=== PATIENT | female | born 1955 | race Caucasian/White ===

== ENCOUNTER 2023-01-22 14:59 | Outpatient (OUT) | payer MEDICARE, SELFPAY ==
[2023-01-22 15:47] LABS: Anion Gap 13.9; BUN Creatinine Ratio 10.3; Basophils Absolute Auto 0.1 10^3/uL (0.0-0.1); Basophils Percent Auto 0.6 % (0.2-2.0); Calcium 9.2 mg/dL (8.5-10.1); Carbon Dioxide 28.1 mmol/L (21.0-32.0); Chloride 97 mmol/L (98-107); Eosinophils Absolute Auto 0.2 10^3/uL (0.0-0.7); Eosinophils Percent Auto 1.7 % (0.9-7.0); Estimated GFR (African America >60 (>=60); Estimated GFR (Non-African Ame >60 (>=60); Glucose 384 mg/dL (74-106); Hematocrit 38.5 % (36.0-48.0); Hemoglobin 12.5 g/dL (12.0-16.0); Immature Granulocytes Abs Auto 0.09 10^3/uL (0.00-0.03); Immature Granulocytes Pct Auto 0.9 % (0.0-0.5); Lymphocytes Absolute Auto 2.5 10^3/uL (1.2-3.8); Lymphocytes Percent Auto 26.3 % (20.5-60.0); Mean Corpuscular HGB Conc 32.5 g/dL (29.9-35.2); Mean Corpuscular Hemoglobin 26.4 pg (26.7-34.0); Mean Corpuscular Volume 81.2 fL (81.0-99.0); Mean Platelet Volume 9.4 fL (9.5-13.5); Monocytes Absolute Auto 0.8 10^3/uL (0.3-0.8); Monocytes Percent Auto 8.6 % (1.7-12.0); Neutrophils Absolute Auto 5.9 10^3/uL (1.4-6.5); Neutrophils Percent Auto 61.9 % (43.0-75.0); Platelet Count 357 10^3/uL (150-450); Red Blood Count 4.74 10^6/uL (4.20-5.40); Sodium 135 mmol/L (136-145); White Blood Count 9.6 10^3/uL (4.0-11.0)
== END 2023-01-22 15:00 ==
PROVIDERS: PCP Family Medicine
DX: I25.118 Atherosclerotic heart disease of native coronary artery with other forms of angina pectoris (principal)
CPT/HCPCS: 36415; 80048; 85025

== ENCOUNTER 2023-02-22 08:22 | Outpatient (OUT) | payer MEDICARE, SELFPAY ==
--- NOTE | 2023-02-22 08:33 | XR_ITS ---
[address] [address] Patient Name: RICCARDO MACDONALD MRN: [id number] date: 1955 Sex: F Assigned Patient Location: [facility] Current Patient Location: [facility] Accession/Order Number: [id number] Exam Date: 02/22/2023 08:45 Report Date: 02/22/2023 09:30 At the request of: GUY CONWAY Procedure: XR DEXA axial skeleton EXAMINATION: XR DEXA axial skeleton HISTORY: Primary Ovarian Failure Z00.00 COMPARISON: DEXA bone densitometry 01/13/2008 TECHNIQUE: Dual-energy X-ray absorptiometry (DXA) was performed. FINDINGS: SPINE ANALYSIS: Average bone mineral density is 0.943 g/cm2. T-score (standard deviation relative to young adult mean): -2.0 . -8.7% change since prior study. HIP ANALYSIS: Lowest bone mineral density is within the right femoral neck, 0.748 g/cm2. T-score (standard deviation relative to young adult mean): -2.1 . IMPRESSION: [employer] Classification: Osteopenia - Moderate Fracture Risk Electronically authenticated by: CATRINA SNYDER Date: 02/22/2023 09:30
--- NOTE | 2023-02-22 08:33 | MM_ITS ---
Patient: RICCARDO MACDONALD Exam Date: 02/22/2023 : 1955 Gender:F Ordering : DR. GUY CONWAY . Admission #: [id number] Family : Order #: [id number] CLICK HERE TO VIEW EXAM RADIOLOGY REPORT PROCEDURE: MM TOMOSYNTHESIS SCREENING BI COMPARISON: MG MAMM SCREEN 3D JOSÉ ANTONIO CAD, 02/06/2022. MG MAMM SCREEN JOSÉ ANTONIO W CAD, 10/25/2020. MG MAMM SCREEN JOSÉ ANTONIO W CAD, 06/06/2019. MG MAMM JOSÉ ANTONIO SCRN W CAD DIG, 03/14/2015. INDICATIONS: Screening Calculator Name NCI Breast Cancer Risk Assessment Tool 5 Year Breast Cancer Risk 1.20% Lifetime Breast Cancer Risk 4.00% Personal Breast Cancer No Personal Ovarian Cancer No Treatments None Family Cancers Aunt-maternal with breast cancer at age 50; Father with lung cancer at age 66; Grandfather-maternal with lung cancer at age 58. LOCATION: [facility] BREAST COMPOSITION: Scattered areas fibroglandular density. FINDINGS: DIAGNOSTIC CATEGORY 2--BENIGN FINDING: RIGHT BREAST: No significant suspicious finding. Scattered benign-appearing calcifications are present. No significant change has occurred. LEFT BREAST: No significant suspicious finding. Scattered benign-appearing calcifications are present. Scattered benign-appearing lymph nodes are present. No significant change has occurred. RECOMMENDATIONS: ROUTINE MAMMOGRAM AND CLINICAL EVALUATION IN 12 MONTHS. PLEASE NOTE: A NORMAL MAMMOGRAM DOES NOT EXCLUDE THE POSSIBILITY OF BREAST CANCER. A CLINICALLY SUSPICIOUS PALPABLE LUMP SHOULD BE BIOPSIED. Dictated by: iMtchell Velázquez M.D. on 02/23/2023 at 09:08 Approved by: Mitchell Velázquez M.D. on 02/23/2023 at 09:15
== END 2023-02-22 08:23 | disposition home or self-care (01) ==
LOC: MAMMO 08:22
PROVIDERS: PCP Family Medicine; Visit Provider Family Medicine
DX: Z12.31 Encounter for screening mammogram for malignant neoplasm of breast (principal); E28.39 Other primary ovarian failure; Z00.00 Encounter for general adult medical examination without abnormal findings; M85.80 Other specified disorders of bone density and structure, unspecified site
CPT/HCPCS: 77063; 77067; 77080

== ENCOUNTER 2023-03-30 16:18 | Outpatient (OUT) | payer MEDICARE, SELFPAY ==
[2023-03-30 17:01] LABS: Basophils Absolute Auto 0.1 10^3/uL (0.0-0.1); Basophils Percent Auto 0.8 % (0.2-2.0); Eosinophils Absolute Auto 0.3 10^3/uL (0.0-0.7); Eosinophils Percent Auto 2.5 % (0.9-7.0); Hematocrit 37.2 % (36.0-48.0); Hemoglobin 12.1 g/dL (12.0-16.0); Immature Granulocytes Abs Auto 0.03 10^3/uL (0.00-0.03); Immature Granulocytes Pct Auto 0.3 % (0.0-0.5); Lymphocytes Absolute Auto 2.6 10^3/uL (1.2-3.8); Lymphocytes Percent Auto 25.5 % (20.5-60.0); Mean Corpuscular HGB Conc 32.5 g/dL (29.9-35.2); Mean Corpuscular Hemoglobin 26.1 pg (26.7-34.0); Mean Corpuscular Volume 80.3 fL (81.0-99.0); Mean Platelet Volume 9.1 fL (9.5-13.5); Monocytes Absolute Auto 0.8 10^3/uL (0.3-0.8); Monocytes Percent Auto 7.8 % (1.7-12.0); Neutrophils Absolute Auto 6.5 10^3/uL (1.4-6.5); Neutrophils Percent Auto 63.1 % (43.0-75.0); Platelet Count 413 10^3/uL (150-450); Red Blood Count 4.63 10^6/uL (4.20-5.40); White Blood Count 10.2 10^3/uL (4.0-11.0)
[2023-03-30 17:25] LABS: Estimated Average Glucose 243 mg/dL; Glycohemoglobin A1C 10.1 % (4.5-6.2)
[2023-03-30 17:26] LABS: Alanine Aminotransferase 20 U/L (14-59); Albumin Globulin Ratio 1.2; Albumin Level 3.9 g/dL (3.4-5.0); Alkaline Phosphatase 107 U/L (46-116); Anion Gap 16.8; Aspartate Amino Transferase 10 U/L (15-37); BUN Creatinine Ratio 9.7; Bilirubin Total 0.5 mg/dL (0.2-1.0); Calcium 9.2 mg/dL (8.5-10.1); Chloride 102 mmol/L (98-107); Estimated GFR (African America >60 (>=60); Estimated GFR (Non-African Ame >60 (>=60); Globulin 3.2 g/dL; Glucose 163 mg/dL (74-106); Potassium 3.8 mmol/L (3.5-5.1); Sodium 141 mmol/L (136-145); Total Protein 7.1 g/dL (6.4-8.2)
== END 2023-03-30 16:19 | disposition home or self-care (01) ==
PROVIDERS: PCP Family Medicine; Visit Provider Family Medicine
DX: I27.20 Pulmonary hypertension, unspecified (principal); J44.9 Chronic obstructive pulmonary disease, unspecified; E55.9 Vitamin D deficiency, unspecified; E11.9 Type 2 diabetes mellitus without complications; D64.9 Anemia, unspecified
CPT/HCPCS: 36415; 80053; 82306; 83036; 85025

== ENCOUNTER 2023-04-20 15:13 | Outpatient (OUT) | payer MEDICARE, SELFPAY ==
--- NOTE | 2023-04-20 15:19 | XR_ITS ---
The [address] [address] Patient Name: RICCARDO MACDONALD MRN: [id number] date: 1955 Sex: F Assigned Patient Location: [facility] Current Patient Location: [facility] Accession/Order Number: [id number] Exam Date: 04/20/2023 15:22 Report Date: 04/20/2023 15:50 At the request of: GUY CONWAY Procedure: XR shoulder RT min 2V PROCEDURE: XR shoulder RT min 2V DATE: 04/20/2023 2:22 PM CDT COMPARISONS: None CLINICAL INDICATION: Right shoulder pain FINDINGS: There is no evidence of fractures or other acute osseous abnormalities. There is some bone demineralization. It appears there is some mild acromioclavicular degenerative change. There also appears to be mild glenohumeral degenerative change although these images do not include a Grashey view. This limits evaluation of the glenohumeral joint somewhat. The visualized soft tissue show no abnormalities in these projections. XR/XR shoulder RT min 2V IMPRESSION: Right shoulder radiographs show no evidence of acute abnormalities. Electronically authenticated by: CYNTHIA DE LA TORRE Date: 04/20/2023 15:50
== END 2023-04-20 15:14 | disposition home or self-care (01) ==
LOC: RAD 15:14
PROVIDERS: PCP Family Medicine; Visit Provider Family Medicine
DX: M25.511 Pain in right shoulder (principal)
CPT/HCPCS: 73030

== ENCOUNTER 2023-10-14 06:35 | Outpatient (OUT) | payer MEDICARE, SELFPAY ==
--- NOTE | 2023-10-14 06:46 | CT_ITS ---
[address] [address] Patient Name: RICCARDO MACDONALD MRN: [id number] date: 1955 Sex: F Assigned Patient Location: LAB Current Patient Location: LAB Accession/Order Number: [id number] Exam Date: 10/14/2023 07:55 Report Date: 10/14/2023 08:59 At the request of: JENY CAT Procedure: CT abdomen pelvis w con EXAMINATION: CT abdomen pelvis w con HISTORY: Right Lower Quadrant Pain R10.31, Ventral Hernia K43.6 COMPARISON: No relevant comparison available. TECHNIQUE: CT images were created with IV contrast. Axial, Coronal, and Sagittal images. Dose reduction techniques were achieved by using automated exposure control and/or adjustment of mA and/or kV according to patient size and/or use of iterative reconstruction technique. FINDINGS: LUNG BASES: No visible pulmonary or pleural disease. Heavy coronary atherosclerosis LIVER: No enlargement, atrophy, abnormal density, or significant focal lesion. BILIARY: The gallbladder is not visualized PANCREAS: Moderate diffuse pancreatic atrophy SPLEEN: No enlargement or focal lesion. ADRENALS: No mass or enlargement. KIDNEYS: No mass, obstruction, or calcification. BOWEL/MESENTERY: No visible mass, obstruction, or bowel wall thickening. AORTA/VASCULAR: No aortic aneurysm. Moderate diffuse atherosclerosis RETROPERITONEUM: No mass or adenopathy. LYMPH NODES: No adenopathy. URINARY BLADDER: No visible focal wall thickening, lesion, or calculus. PELVIC ORGANS: Hysterectomy ABDOMINAL WALL: Laxity of the ventral abdominal fascia with multiple linear opacities have the appearance of failed and displaced calcified mesh BONES: No bony lesion or fracture. OTHER: Negative. CT/CT abdomen pelvis w con IMPRESSION: Laxity of the ventral fascia with calcifications resembling failed displaced calcified mesh No acute intraperitoneal abnormality Electronically authenticated by: CHRISTELLE BECKER Date: 10/14/2023 08:59
[2023-10-14 06:57] LABS: Estimated GFR (African America >60 (>=60); Estimated GFR (Non-African Ame >60 (>=60)
== END 2023-10-14 06:36 | disposition home or self-care (01) ==
LOC: LAB 06:35
PROVIDERS: PCP Family Medicine; Visit Provider Surgery
DX: Z01.812 Encounter for preprocedural laboratory examination (principal); R10.31 Right lower quadrant pain; K43.6 Other and unspecified ventral hernia with obstruction, without gangrene; Z68.31 Body mass index [BMI] 31.0-31.9, adult
CPT/HCPCS: 36415; 74177; 82565; Q9967

== ENCOUNTER 2023-11-04 07:32 | Outpatient (RCR) | payer MEDICARE, SELFPAY ==
[2023-11-04] MEDS: 0.9 % SODIUM CHLORIDE 250 ML 10 ML IV (13:30)
[2023-11-04 13:47] VITALS: BP 134/66; PULSE 71; RESP 18; TEMP 37; O2SAT 98
--- NOTE | 2023-11-04 13:50 | PC.NURSE ---
1315 Arrival ambulatory to chair 4, alert oriented. Offered drink. 1330 @24 iv initiated right wrist on rd attempt, tolerated well. 1340 iv normal saline 125 ml prior to venofer.
[2023-11-04] MEDS: IRON SUCROSE COMPLEX 300 MG in 0.9 % SODIUM CHLORIDE 250 ML 176.667000000000002 MG IV (13:58)
--- NOTE | 2023-11-04 15:10 | PC.NURSE ---
1500 iron infusionand saline total of 250 cc ns 125 pre iron 125 cc post iron infusion, tolerated well. IV site dc'd catheter intact. released ambulatory
== END 2023-11-14 23:59 | disposition home or self-care (01) ==
LOC: INF 07:32
PROVIDERS: PCP Family Medicine; Visit Provider Family Medicine
DX: D64.9 Anemia, unspecified (principal)
CPT/HCPCS: 96365; 96366; J1756

== ENCOUNTER 2023-11-30 11:51 | Outpatient (OUT) | payer MEDICARE, SELFPAY ==
--- NOTE | 2023-11-30 11:59 | XR_ITS ---
The [address] [address] Patient Name: RICCARDO MACDONALD MRN: [id number] date: 1955 Sex: F Assigned Patient Location: [facility] Current Patient Location: [facility] Accession/Order Number: [id number] Exam Date: 11/30/2023 12:02 Report Date: 11/30/2023 12:24 At the request of: GUY CONWAY Procedure: XR chest 2V PROCEDURE: XR chest 2V DATE: 11/30/2023 11:02 AM CDT COMPARISONS: None. CLINICAL INDICATION: 68 years Female cough FINDINGS: The cardiomediastinal silhouette and pulmonary vasculature are within normal limits. The lungs are clear. There is no evidence of pleural effusion or pneumothorax. XR/XR chest 2V IMPRESSION: Chest radiograph is within normal limits. Electronically authenticated by: CYNTHIA DE LA TORRE Date: 11/30/2023 12:24
== END 2023-11-30 11:52 | disposition home or self-care (01) ==
LOC: RAD 11:52
PROVIDERS: PCP Family Medicine; Visit Provider Family Medicine
DX: R05.9 Cough, unspecified (principal)
CPT/HCPCS: 71046

== ENCOUNTER 2024-05-16 12:42 | Outpatient (OUT) | payer MEDICARE, SELFPAY ==
[2024-05-16 13:42] LABS: Anion Gap 12.1; Calcium 9.4 mg/dL (8.5-10.1); Carbon Dioxide 25.8 mmol/L (21.0-32.0); Chloride 101 mmol/L (98-107); Estimated GFR (African America >60 (>=60); Estimated GFR (Non-African Ame >60 (>=60); Glucose 120 mg/dL (74-106); Potassium 3.9 mmol/L (3.5-5.1); Sodium 135 mmol/L (136-145)
== END 2024-05-16 12:43 | disposition home or self-care (01) ==
LOC: LAB 12:46
PROVIDERS: PCP Family Medicine; Visit Provider Internal Medicine Interventional Cardiology
DX: I50.22 Chronic systolic (congestive) heart failure (principal)
CPT/HCPCS: 36415; 80048

== ENCOUNTER 2024-12-30 23:12 | Emergency (ER) | payer OTHER, SELFPAY ==
--- OUTSIDE RECORDS SUMMARY | 2024-12-30 23:24 | XMS_ITS | CCD ---
Author Organization [facility] Care Team Providers Care [place] Interpretive Ranger Name Role Phone UNKNOWN, PROVIDER Admitting Unavailable UNKNOWN, PROVIDER Attending Unavailable MONTES, KARL Referring Unavailable MONTES, KARL Primary Care Unavailable Unavailable Primary Care Provider Unavailabl e PROVIDER, UNKNOWN Admitting Unavailable OWEN, SUZIE Referring Unavailable PROVIDER, UNKNOWN Attending Unavailable PROVIDER, UNKNOWN Attending Unavailable PROVIDER, UNKNOWN Admitting Unavailable OWEN, SUZIE Referring Unavailable LADHA, JACQUELINE Attending Unavailable LADHA, JACQUELINE Admitting Unavailable OWEN, SUZIE Referring Unavailable PROVIDER, UNKNOWN Attending Unavailable LADHA, JACQUELINE Admitting Unavailable OWEN, SUZIE Referring Unavailable ELAINE ., CAROLINA Attending Unavailable MONTES ., DR KARL Kam Primary Care Unavailable OWEN, DR SUZIE King Consulting Unavailable ELAINE ., CAROLINA Admitting Unavailable ELAINE ., CAROLINA Consulting Unavailable ASAD, HOSSAM Consulting Unavailable MONTES ., DR KARL Kam Primary Care Unavailable MONTES ., DR KARL Kam Admitting Unavailable MONTES ., DR KARL Kam Attending Unavailable MONTES ., DR KARL Kam Consulting Unavailable ZIEBER, DR CATRINA King Consulting Unavailable MATTHIAS MUÑOZ Consulting Unavailable MONTES ., DR KARL Kam Primary Care Unavailable MONTES ., DR KARL Kam Admitting Unavailable MONTES ., DR KARL Kam Attending Unavailable MONTES ., DR KARL Kam Consulting Unavailable AC GOMES Consulting Unavailable MONTES ., DR KARL Kam Primary Care Unavailable MONTES ., DR KARL Kam Admitting Unavailable MONTES ., DR KARL Kam Attending Unavailable MONTES ., DR KARL Kam Consulting Unavailable MONTES ., DR KARL Kam Consulting Unavailable MONTES ., DR KARL Kam Attending Unavailable MONTES ., DR KARL Kam Primary Care Unavailable MONTES ., DR KARL Kam Admitting Unavailable TRIPP, JOSE Consulting Unavailable MONTES ., DR KARL Kam Attending Unavailable MONTES ., DR KARL Kam Primary Care Unavailable MONTES ., DR KARL Kam Admitting Unavailable MONTES ., DR KARL Kam Consulting Unavailable MONTES ., DR KARL Kam Primary Care Unavailable MONTES ., DR KARL Kam Admitting Unavailable MONTES ., DR KARL Kam Attending Unavailable MONTES ., DR KARL Kam Consulting Unavailable ROSS, ISSAC MARIAMA Attending Unavailable ROSS, ISSAC MARIAMA Consulting Unavailable ROSS, ISSAC MARIAMA Primary Care Unavailable ROSS, ISSAC MARIAMA Admitting Unavailable MONTES ., DR KARL Kam Primary Care Unavailable MONTES ., DR KARL Kam Admitting Unavailable MONTES ., DR KARL Kam Attending Unavailable MONTES ., DR KARL Kam Consulting Unavailable MISC, DR BOWIE Attending Unavailable MISC, DR BOWIE Consulting Unavailable MONTES ., DR KARL Kam Primary Care Unavailable MISC, DR BOWIE Admitting Unavailable MOUKARBKAYKAY, AC Attending Unavailable MOUKARBKAYKAY, AC Consulting Unavailable MONTES ., DR KARL Kam Primary Care Unavailable AC GOMES Admitting Unavailable MONTES ., DR KARL Kam Primary Care Unavailable MONTES ., DR KARL Kam Admitting Unavailable MONTES ., DR KARL Kam Attending Unavailable MONTES ., DR KARL Kam Consulting Unavailable AC GOMES Consulting Unavailable MONTES ., DR KARL Kam Attending Unavailable MONTES ., DR KARL Kam Primary Care Unavailable MONTES ., DR KARL Kam Admitting Unavailable MONTES ., DR KARL Kam Consulting Unavailable MANSURA, DR CHRISTELLE Blanchard Consulting Unavailable MONTES ., DR KARL Kam Attending Unavailable MONTES ., DR KARL Kam Consulting Unavailable MONTES ., DR KARL Kam Primary Care Unavailable MONTES ., DR KARL Kam Admitting Unavailable ZIEBER, DR CATRINA King Consulting Unavailable MONTES ., DR KARL Kam Consulting Unavailable MONTES ., DR KARL Kam Primary Care Unavailable MONTES ., DR KARL Kam Admitting Unavailable MONTES ., DR KARL Kam Attending Unavailable MONTES ., DR KARL Kam Attending Unavailable MONTES ., DR KARL Kam Primary Care Unavailable MONTES ., DR KARL Kam Admitting Unavailable MONTES ., DR KARL Kam Consulting Unavailable ELAINE ., CAROLINA Admitting Unavailable ELAINE ., CAROLINA Attending Unavailable MONTES ., DR KARL Kam Primary Care Unavailable ELDON COOLEY Consulting Unavailable ELAINE ., CAROLINA Consulting Unavailable MONTES ., DR KARL Kam Primary Care Unavailable MONTES ., DR KARL Kam Admitting Unavailable MONTES ., DR KARL Kam Attending Unavailable MONTES ., DR KARL Kam Consulting Unavailable MONTES ., DR KARL Kam Attending Unavailable MONTES ., DR KARL Kam Primary Care Unavailable MONTES ., DR KARL Kam Admitting Unavailable MONTES ., DR KARL Kam Consulting Unavailable SHAMEKA DYKES Consulting Unavailable DUMONT, AYLEEN Consulting Unavailable SISTER, MATTHIAS Consulting Unavailable SHARP, WEI Consulting Unavailable BASIL, ROBERTH Consulting Unavailable MONTES ., DR KARL Kam Consulting Unavailable MONTES ., DR KARL Kam Attending Unavailable MONTES ., DR KARL Kam Primary Care Unavailable MONTES ., DR KARL Kam Admitting Unavailable MONTES ., DR KARL Kam Primary Care Unavailable MONTES ., DR KARL Kam Admitting Unavailable MONTES ., DR KARL Kam Attending Unavailable MONTES ., DR KARL Kam Consulting Unavailable ZIEBER, DR CATRINA King Consulting Unavailable Issac Conway. Primary Care Physician Karl Montes MD Primary Care Provider [phone] Marianne Lozano Attending UnavailMD Issac Long Referring Unavailable Marianne Lozano Admitting UnavailMarianne Rivera Attending Unavailabl e Issac Conway EDonald Attending Unavailable Man, Issac E. Admitting Unavailable Man, Issac E. Admitting Unavailable Issac Conway E. Attending Unavailable Issac Conway E. Attending Unavailable Issac Conway E. Attending Unavailable Issac Conway E. Attending Unavailable Issac Conway E. Attending Unavailable Issac Conway E. Attending Unavailable Issac Conway E. Attending Unavailable Man Issac E. Admitting Unavailable Issac Conway E. Attending Unavailable NONE, XXXX Referring Unavailable Martinez, Basem G. Attending Unavailable NONE, XXXX Referring Unavailable Petar Gonzalez. Attending Unavaila ble NONE, XXXX Referring Unavailable Petar Gonzalez. Attending Unavaila ble Issac Conway E. Attending Unavailable Man, Issac E. Referring Unavailable Ross, Issac E. Admitting Unavailable Martinez, Basem G. Admitting Unavailable Martinez, Basem G. Attending Unavailable Martinez, Basem G. Referring Unavailable Ross, Issac E. Attending Unavailable Man, Issac E. Admitting Unavailable NILL, Juan Pablo R Attending Unavailable Man, Issac E. Referring Unavailable Man, Issac E. Attending Unavailable Man, Issac E. Attending Unavailable Man, Issac E. Attending Unavailable Man, Issac E. Attending Unavailable Man, Issac E. Attending Unavailable Man, Issac E. Admitting Unavailable Man, Issac E. Attending Unavailable Man, Issac E. Admitting Unavailable Issac Conway MD Primary Care Provider [place]-Marianne Savage Attending Unavailabl e Al-Marramagui, Sandid Yaser Admitting Unavailabl Ac Goodwin MD Unavailable Michelle GUYLinda Unavailable MD Issac Conway Referring Unavailable MD Marianne Lozano Attending Unavail able MD Marianne Lozano Attending Unavail able JUJU OROURKE Attending Unavailable KARL MONTES Primary Care Unavailable DAVID HODGSON Admitting Unavailable MAN ISSAC E Primary Care Unavailable MARÍA GUZMAN Referring Unavailable MAN, ISSAC E Primary Care Unavailable MARÍA GUZMAN Referring Unavailable MAN, ISSAC E Primary Care Unavailable KARL MONTES Primary Care Unavailable JUJU OROURKE Referring Unavailable JUJU OROURKE Attending Unavailable MARÍA GUZMAN Attending Unavailable MAN ISSAC E Primary Care Unavailable MARÍA GUZMAN Referring Unavailable MAN, ISSAC E Primary Care Unavailable MARÍA GUZMAN Referring Unavailable MAN, ISSAC E Primary Care Unavailable MD Issac Conway Attending Unavailable MD Issac Conway Attending Unavailable Al-Marmckenzie, Marianne Yaser Admitting Unavailabl e Al-Marramagui, Sandid Angelika Attending Unavailabl e Al-Marramagui, Sandid Yaser Admitting Unavailabl e [place]-Marianne Savage Attending UnavailMD Issac Long Attending Unavailable MD Issac Conway Admitting Unavailable Al-Marramagui, Sandid Yaser Referring Unavailabl e Al-Marramagui, Marianne Yalilian Attending Unavailabl e [place]i Savaged Yalilian Attending UnavailMD Issac Long Attending Unavailable MD Issac Conway Attending Unavailable AC GOMES Attending Unavailable AC GOMES Attending Unavailable Issac Conway Attending Unavailable Al-MarMarianne rincon Attending Unavailabl e Al-MarraSandi kilgored Yaser Attending Unavailabl e Al-Marramagui, Marianne Yalilian Attending Unavailabl e Al-Marramagui, Mhd Yaser Admitting Unavailabl e Al-Marramagui, Sandid Yalilian Attending Unavailabl e Issac Conway. Admitting Unavailable Isasc Conway. Attending Unavailable Issac Conway. Attending Unavailable Issac Conway. Attending Unavailable Al-Marrawi, Mhd Yaser Admitting Unavailabl e Al-Marrawi, Mhd Yaser Attending Unavailabl e Al-Marrawi, Mhd Yaser Admitting Unavailabl e Al-Marrawi, Mhd Yaser Attending Unavailabl e Kvng, Mohamad A. Attending Unavailable MD Segundo Guillen Attending Unavailable MD Segundo Guillen Admitting Unavailable Al-Marrawi, Mhd Yaser Attending Unavailabl e NONE, XXXX Referring Unavailable Martinez, Basem G. Admitting Unavailable Martinez, Basem G. Attending Unavailable Martinez, Basem G. Admitting Unavailable Martinez, Basem G. Attending Unavailable Martinez, Basem G. Referring Unavailable Al-Marrawi, Mhd Yaser Admitting Unavailabl e Al-Marrawi, Mhd Yaser Attending Unavailabl e Al-Marrawi, Mhd Yaser Attending Unavailabl e Al-Marrawi, Mhd Yaser Admitting Unavailabl e Al-Marrawi, Mhd Yaser Attending Unavailabl e Al-Marrawi, Mhd Yaser Attending Unavailabl e Issac Conway. Attending Unavailable Issac Conway. Attending Unavailable Issac Conway. Admitting Unavailable Al-Marrawi, Mhd Yaser Attending Unavailabl e Al-Marrawi, Mhd Yaser Referring Unavailabl e Segundo Guillen Admitting Unavailable Segundo Guillen Attending Unavailable Mouchli, Mohamad A. Attending Unavailable Al-Marrawi, Mhd Yaser Attending Unavailabl e Mouchli, Mohamad A. Admitting Unavailable Mouchli, Mohamad A. Attending Unavailable Mouchli, Mohamad A. Referring Unavailable Allergies Allergy Classification Reported Allergen(s) Allergy Type Date of Onset Reaction(s) Facility (14 sources) Amoxicillin; Translations: [AMOXICILLIN] Drug Allergy 10-08-19 12 Itching [facility] Repository (13 sources) Atenolol; Translations: [ATENOLOL] Drug Allergy 10-08-19 12 Anaphylaxis [facility] Repository (10 sources) Cephalexin; Translations: [Keflex] Drug Allergy 10-08-19 12 [facility] Repository (10 sources) Ciprofloxacin; Translations: [Cipro] Drug Allergy 10-08-19 12 [facility] Repository (10 sources) Clarithromycin; Translations: [Biaxin] Drug Allergy 10-08-19 12 [facility] Repository (8 sources) Contrast media; Translations: [RED DYE] Drug allergy (disorder) 10-08-19 12 Unknown [facility] Repository (14 sources) Doxycycline; Translations: [DOXYCYCLINE] Drug Allergy 12-22-19 16 Nausea [facility] Repository (8 sources) quiNIDine; Translations: [quinidine] Drug Allergy 10-20-19 12 Itching [facility] Repository (4 sources) Sulfonamides (Antibiotic); Translations: [SULFA (SULFONAMIDE ANTIBIOTICS)] Drug allergy (disorder) 10-08-19 12 [facility] Repository (3 sources) Acetaminophen / HYDROcodone; Translations: [ACETAMINOPHEN-HYD ROCODONE] Drug Allergy 07-04-20 22 [facility] (20 sources) Amoxicillin; Translations: [amoxicillin] Drug Allergy 08-03-20 14 Unknown (qualifier value), Itching, Other: See Comments [facility] (2 sources) Atenolol Propensity to adverse reactions to drug 07-04-20 22 Anaphylactic Shock [facility] (20 sources) Cephalexin; Translations: [CEPHALEXIN] Drug Allergy 08-03-20 14 Unknown (qualifier value), Itching, Rash [facility] (20 sources) Ciprofloxacin; Translations: [CIPROFLOXACIN] Drug Allergy 08-03-20 14 Unknown (qualifier value), Itching, Rash [facility] (6 sources) Clarithromycin; Translations: [CLARITHROMYCIN] Propensity to adverse reactions to drug 08-03-20 14 Itching [facility] (20 sources) Doxycycline; Translations: [doxycycline] Drug Allergy 07-04-20 22 Unknown (qualifier value), Unknown [facility] (10 sources) Pseudoephedrine; Translations: [PSEUDOEPHEDRINE] Drug Allergy 07-04-20 22 Intolerance [facility] (8 sources) Sulfonamides (Antibiotic); Translations: [SULFA ANTIBIOTICS] Propensity to adverse reactions to drug 08-03-20 14 Itching, Unknown [facility] (1 source) Acetaminophen / HYDROcodone Drug Allergy 11-22-19 14 [facility] Repository (1 source) Atenolol Drug Allergy 07-27-20 13 [facility] (1 source) Pseudoephedrine Drug Allergy 11-22-19 14 [facility] (20 sources) Atenolol; Translations: [atenolol] Drug Allergy 08-03-20 14 Unknown (qualifier value), Anaphylaxis, Unknown [facility] (20 sources) Clarithromycin; Translations: [clarithromycin] Drug Allergy 08-03-20 14 Unknown (qualifier value), Itching, Rash [facility] (20 sources) Sulfonamides (Antibiotic); Translations: [sulfa drugs] Drug allergy Unknown (qualifier value) [facility] Medications Current Medications Medication Drug Class(es) Dates Sig (Normalized) Sig (Original) acetaminophen 325 mg oral tablet (3 sources) Start: 07-06-2022 End: 07-13-2022 take 2 tablets by mouth every six hours as needed acetaminophen (TYLENOL) 325 mg tablet Take 2 Tablets by mouth every 6 hours as needed for up to 7 days. 28 Each 0 07/06/2022 07/13/2022 Active Start: 07-04-2022 End: 07-06-2022 take 640 mg nasogastric route every six hours acetaminophen (TYLENOL) 650 MG/20.3ML oral solution SF albuterol 0.833 mg/ml / ipratropium bromide 0.167 mg/ml inhalation solution (20 sources) Anticholinergic, beta2-Adrenergic Agonist Start: 10-06-2024 Ipratropium-Albuterol 0.5 mg-3 mg(2.5 mg base)/3 mL solution for nebulization Active ML INHALATION October 06, 2024 12:00am Start: 06-12-2024 take 3 mL by inhalat ion four times daily albuterol-ipratropium Inh Ana Cristina 3 mL UD 3 mL, NEB, QID, 1,080 mL, Refill(s) 4, [facility], 151, cm, 05/30/24 13:14:00 EDT, Height/Length Dosing, 69.5, kg, 05/30/24 13:14:00 EDT, Weight Dosing Start Date: 06/12/24 Status: Ordered Quantity: 1080.0 Unit: mL Repeat number: 5 Start: 05-24-2023 take 3 mL by mouth f our times daily albuterol-ipratropium Inh Ana Cristina 3 mL UD See Instructions, 360 mL, Refill(s) 0, TAKE 3ml BY MOUTH FOUR TIMES DAILY, [facility], 151, cm, 03/28/24 14:36:00 EDT, Height/Length Dosing, 73, kg, 03/28/24 14:36:00 EDT, Weight Dosing Start Date: 04/19/24 Status: Ordered Start: 01-06-2023 End: 01-01-2024 take 3 mL by inhalation every four hours albuterol-ipratropium Inh Ana Cristina 3 mL UD 3 mL, NEB, q4hr for 90 day(s), 1,620 mL, Refill(s) 3, [facility][id number], 150.1, cm, 12/23/22 10:52:00 EDT, Height/Length Dosing, 71.5, kg, 12/23/22 10:52:00 EDT, Weight Dosing Start Date: 01/06/23 Stop Date: 01/01/24 Status: Ordered Start: 07-04-2022 End: 07-06-2022 3 mL, Nebulization, 4 TIMES DAILY, First dose on 07/04/22 at 0900, Until Discontinued Start: 07-04-2022 End: 07-04-2022 ipratropium-albuterol (DUO-N EB) 0.5-2.5 (3) MG/3ML nebulizer solution aspirin 81 mg delayed release oral tablet (20 sources) Platelet Aggregation Inhibitor, Nonsteroidal Anti-inflammatory Drug Start: 01-13-2023 take 1 tablet by mouth once daily aspirin 81 mg Oral EC Tab 81 mg = 1 tab(s), Oral, Daily, # 90 tab(s), Refills(s) 0, Prophylaxis Start Date: 01/13/23 Status: Ordered Quantity: 90.0 Unit: tab(s) Repeat number: 1 Start: 11-19-2022 take 81 mg by mouth once daily 81 mg, Oral, DAILY, First dose on 07/04/22 at 0900, Until Discontinued azithromycin 250 mg oral tablet (3 sources) Macrolide Antimicrobial Start: 10-31-2024 End: 11-05-2024 azithromycin 250 mg Tab = 1 packet(s), Oral, As Directed, as directed on package labeling, X 5 day(s), # 6 tab(s), Refills(s) 0, Pharmacy: [facility], 151, cm, 10/31/24 13:13:00 EDT, Height/Length Dosing, 72.9, kg, 10/31/24 13:13:00 EDT, Weight Dosing Start Date: 10/31/24 Stop Date: 11/05/24 Status: Ordered Quantity: 6.0 Unit: tab(s) Repeat number: 1 Start: 10-06-2024 Azithromycin 2 50 mg tablet Active 0 PO .COMPLEX October 06, 2024 12:00am For 250 mg dose pack: take 500 mg today (day 1), then 250 mg for 4 days (days 2-5) PO B12 (9 sources) Start: 07-24-2024 B12 B12, See Instructions, 10 packet(s), 3, IntraMuscular, [facility], Supply, 151, cm, 07/11/24 14:31:00 EST, Height/Length Dosing, 69.9, kg, 07/11/24 14:31:00 EST, Weight Dosing Start Date: 07/24/24 Status: Ordered Quantity: 10.0 Unit: packet(s) Repeat number: 4 Indication: Deficiency of other specified B group vitamins benzocaine 200 mg/ml topical spray (1 source) Standardized Chemical Allergen Start: 07-04-2022 benzocaine (HURRICAINE) 20 % oral spray Breo Ellipta 200 mcg-25 mcg/inh inhalation powder (14 sources) Start: 02-16-2024 End: 08-14-2024 take 1 dose by inhalation once daily Breo Ellipta 200 mcg-25 mcg/inh inhalation powder 1 puff(s), Inhalation, Daily for 30 day(s), 1 EA, Refill(s) 5, [facility], 151, cm, 02/16/24 11:43:00 EDT, Height/Length Dosing, 73.8, kg, 02/16/24 11:43:00 EDT, Weight Dosing Start Date: 02/16/24 Stop Date: 08/14/24 Status: Ordered Start: 04-05-2023 End: 10-02-2023 take 1 dose by inhalation once daily Breo Ellipta 200 mcg-25 mcg/inh inhalation powder 1 puff(s), Inhalation, Daily for 30 day(s), 1 EA, Refill(s) 5, [facility], 151, cm, 04/05/23 11:50:00 EDT, Height/Length Dosing, 69.3, kg, 04/05/23 11:50:00 EDT, Weight Dosing Start Date: 04/05/23 Stop Date: 10/02/23 Status: Ordered 12 hr buPROPion hydrochloride 150 mg extended release oral tablet (1 source) Aminoketone Start: 10-20-2023 take 1 tablet by mouth twice daily Wellbutrin SR 150 mg Tab-ER 150 mg = 1 tab(s), Oral, BID, # 180 tab(s), Refills(s) 0, Pharmacy: [facility], 151, cm, 10/20/23 14:16:00 EST, Height/Length Dosing, 71.2, kg, 10/20/23 14:16:00 EST, Weight Dosing Start Date: 10/20/23 Status: Ordered cefuroxime 500 mg oral tablet (2 sources) Cephalosporin Antibacterial take 1 tablet by mouth twice daily cefUROXime (CEFTIN) 500 MG tablet Take 500 mg by mouth 2 times daily. 0 Active cholecalciferol 1.25 mg oral capsule (2 sources) Vitamin D Cholecalciferol 1.25 MG (04574 UT) CAPS Take by mouth. 0 Active Cyanocobalamin (Vitamin B-12) 1,000 mcg/mL solution (1 source) Start: 10-06-2024 Cyanocobalamin (Vitamin B-12) 1,000 mcg/mL solution Active 1000 MCG IM .QOW October 06, 2024 12:00am dapagliflozin 10 mg oral tablet (2 sources) Sodium-Glucose Cotransporter 2 Inhibitor Start: 04-13-2024 take 10 mg by mouth once daily Farxiga 10 mg, Oral, Daily, Refills(s) 0 Start Date: 04/14/24 Status: Ordered dextrose 10 % iv infusion (1 source) Start: 07-04-2022 dextrose 10 % iv infusion docusate sodium 100 mg oral capsule (1 source) Start: 07-06-2022 End: 07-13-2022 take 1 capsule by mouth twice daily docusate sodium (Colace) 100 MG capsule Take 1 Capsule by mouth 2 times daily for 7 days. 14 Capsule 0 07/06/2022 07/13/2022 Active 0.4 ml enoxaparin sodium 100 mg/ml prefilled syringe (1 source) Low Molecular Weight Heparin Start: 07-04-2022 enoxaparin (LOVENOX) 40 MG/0.4ML injection 40 mg Esomeprazole Magnesium 40 mg capsule,delayed release(DR/EC) (1 source) Start: 10-06-2024 take 1 capsule by mouth twice daily Esomeprazole Magnesium 40 mg capsule,delayed release(DR/EC) Active 40 MG PO Twice daily October 06, 2024 12:00am fluticasone propionate 0.05 mg/actuat metered dose nasal spray (10 sources) Corticosteroid Start: 07-25-2024 take 1 spray(s) nasal route twice daily Flonase 0.05 mg/inh [place] 1 spray(s), Nasal, BID, 16 gram, Refill(s) 0, each nostril, [facility], 151, cm, 07/25/24 13:56:00 EST, Height/Length Dosing, 70.3, kg, 07/25/24 13:56:00 EST, Weight Dosing Start Date: 07/25/24 Status: Ordered Quantity: 16.0 Unit: g Repeat number: 1 furosemide 40 mg oral tablet (20 sources) Loop Diuretic Start: 01-06-2023 take 1 tablet by mouth once daily furosemide 40 mg Tab 40 mg = 1 tab(s), Oral, Daily, # 90 tab(s), Refills(s) 4, Pharmacy: [facility], 151, cm, 02/16/24 11:43:00 EDT, Height/Length Dosing, 73.8, kg, 02/16/24 11:43:00 EDT, Weight Dosing Start Date: 03/06/24 Status: Ordered take 1 tablet by mouth once avis y furosemide (LASIX) 20 MG tablet Take 20 mg by mouth daily. 0 Active ibuprofen 400 mg oral tablet (1 source) Nonsteroidal Anti-inflammatory Drug Start: 07-06-2022 End: 07-13-2022 take 1 tablet by mouth every six hours as needed for pain ibuprofen (MOTRIN) 400 MG tablet Take 1 Tablet by mouth every 6 hours as needed for Pain for up to 7 days. 28 Tablet 0 07/06/2022 07/13/2022 Active insulin, regular, human 100 unt/ml injectable solution (1 source) Insulin Start: 07-04-2022 inject 2-12 [IU] by subcutaneous injection every six hours insulin regular (HumuLIN R) 100 UNIT/ML injection 24 hr isosorbide mononitrate 30 mg extended release oral tablet (20 sources) Nitrate Vasodilator Start: 10-31-2024 take 1 tablet by mouth once daily in the morning isosorbide mononitrate 30 mg ER Tab 30 mg = 1 tab(s), Oral, qAM, High blood pressure Start Date: 10/31/24 Status: Ordered Repeat number: 1 Start: 10-06-2024 take 1 tablet by kia th every twenty-four hours Isosorbide Mononitrate 30 mg tablet extended release 24 hr Active MG PO October 06, 2024 12:00am Start: 01-06-2023 End: 01-01-2024 take 1 tablet by mouth once daily in the morning isosorbide mononitrate ER (IMDUR) 30 mg 24 hr tablet Take 1 tablet by mouth every morning. 01/06/2023 Active take 1 tablet by mouth once avis y isosorbide mononitrate (IMDUR) 30 MG CR tablet Take 30 mg by mouth daily. 0 Active metFORMIN hydrochloride 500 mg oral tablet (20 sources) Biguanide Start: 04-20-2023 End: 04-14-2024 take 2 tablets by mouth twice daily metformin 500 mg Tab 1,000 mg = 2 tab(s), Oral, BID, X 90 day(s), # 360 tab(s), Refills(s) 3, Pharmacy: [facility], 151, cm, 04/20/23 14:35:00 EDT, Height/Length Dosing, 69, kg, 04/20/23 14:35:00 EDT, Weight Dosing Start Date: 04/20/23 Stop Date: 04/14/24 Status: Ordered Start: 04-20-2023 take 1 tablet by kia th once daily metFORMIN (GLUCOPHAGE) 500 mg tablet Take 1 tablet every day by oral route for 90 days. 04/20/2023 Active Start: 01-06-2023 End: 01-01-2024 take 1 tablet by mouth three times daily metformin 500 mg Tab 500 mg = 1 tab(s), Oral, TID, X 90 day(s), # 270 tab(s), Refills(s) 3, Pharmacy: [facility], 150.1, cm, 12/23/22 10:52:00 EDT, Height/Length Dosing, 71.5, kg, 12/23/22 10:52:00 EDT, Weight Dosing Start Date: 01/06/23 Stop Date: 01/01/24 Status: Ordered take 1 tablet by kia th three times daily at mealtime metformin (GLUCOPHAGE) 500 MG tablet Take 500 mg by mouth 3 times daily (with meals). 0 Active methylPREDNISolone 4 mg oral tablet (3 sources) Corticosteroid Start: 10-31-2024 End: 11-06-2024 Medrol 4 mg Tab = 1 packet(s), Oral, As Directed, as directed on package labeling, X 6 day(s), # 21 tab(s), Refills(s) 0, Pharmacy: [facility], 151, cm, 10/31/24 13:13:00 EDT, Height/Length Dosing, 72.9, kg, 10/31/24 13:13:00 EDT, Weight Dosing Start Date: 10/31/24 Stop Date: 11/06/24 Status: Ordered Quantity: 21.0 Unit: tab(s) Repeat number: 1 Start: 07-04-2022 End: 07-08-2022 methylPREDNISolone sodium gongora ccinate (SOLU-Medrol) 40 MG injection Misc DME Prescription (20 sources) Start: 05-19-2024 Start: 05-19-2024 Start: 01-13-2023 Misc DME Presc ription 2L of Oxygen daily however pt wears PRN Start Date: 01/13/23 Status: Ordered nabumetone 500 mg oral tablet (8 sources) Nonsteroidal Anti-inflammatory Drug Start: 07-26-2023 take 1 tablet by mouth twice daily nabumetone 500 mg Tab 500 mg = 1 tab(s), Oral, BID, when needed, # 180 tab(s), Refills(s) 3, Pharmacy: [facility], 151, cm, 06/24/23 14:25:00 EST, Height/Length Dosing, 69.5, kg, 06/24/23 14:25:00 EST, Weight Dosing Start Date: 07/26/23 Status: Ordered Start: 02-12-2023 take 1 tablet by kia twice daily nabumetone 500 mg Tab 500 mg = 1 tab(s), Oral, BID, when needed, # 60 tab(s), Refills(s) 2, Pharmacy: [facility], 151, cm, 02/11/23 14:43:00 EDT, Height/Length Dosing, 70.1, kg, 02/11/23 14:43:00 EDT, Weight Dosing Start Date: 02/12/23 Status: Ordered Start: 12-22-2022 take 1 tablet by kia twice daily nabumetone 500 mg Tab 500 mg = 1 tab(s), Oral, BID, when needed, Refills(s) 0 Start Date: 12/22/22 Status: Ordered nebulizer supplies (20 sources) Start: 01-31-2024 nebulizer supp lies nebulizer supplies, See Instructions, 1 EA, 0, nebulizer supplies- tubing and cup, [facility], [facility], 151, cm, 01/25/24 13:05:00 EDT, Height/Length Dosing, 72.5, kg, 01/25/24 13:05:00 EDT, Weight Dosing Start Date: 01/31/24 Status: Ordered Quantity: 1.0 Unit: EA Repeat number: 1 Start: 01-31-2024 nebulizer supp lies nebulizer supplies, See Instructions, 1 EA, 0, nebulizer supplies- tubing and cup, [facility], [facility], 151, cm, 01/25/24 13:05:00 EDT, Height/Length Dosing, 72.5, kg, 01/25/24 13:05:00 EDT, Weight Dosing Start Date: 01/31/24 Status: Ordered Start: 12-20-2023 nebulizer supp lies nebulizer supplies, See Instructions, 1 EA, 0, nebulizer supplies- tubing and cup, [facility], [facility], 151, cm, 06/24/23 14:25:00 EST, Height/Length Dosing, 69.5, kg, 06/24/23 14:25:00 EST, Weight Dosing Start Date: 08/04/23 Status: Ordered 24 hr nicotine 0.583 mg/hr transdermal system (1 source) Cholinergic Nicotinic Agonist Start: 07-04-2022 nicotine (NICODERM C Q) 14 mg/24HR patch nitroglycerin 0.4 mg sublingual powder (20 sources) Nitrate Vasodilator Start: 11-03-2022 nitroglyce rin See Instructions, 0.4 mg SubLingual as needed for chest pain, Refills(s) 0 Start Date: 11/03/22 Status: Ordered Repeat number: 1 nitroglycerin (N ITROSTAT) 0.4 MG sublingual tablet 0.4 mg by Sublingual route every 5 minutes as needed for Chest pain. Maximum of 3 tablets in 15 minutes. 0 Active nystatin 100 unt/mg topical powder (1 source) Polyene Antifungal Start: 12-29-2024 nystatin Top 100,000 units/g Pwdr 1 beto, Topical, BID, 30 gram, Refill(s) 1, [facility], 151, cm, 12/29/24 14:24:00 EDT, Height/Length Dosing, 73, kg, 12/29/24 14:24:00 EDT, Weight Dosing Start Date: 12/29/24 Status: Ordered Quantity: 30.0 Unit: g Repeat number: 2 ondansetron 4 mg oral tablet (8 sources) Serotonin-3 Receptor Antagonist Start: 04-19-2024 take 1 tablet by mouth every eight hours Zofran 4 mg Tab 4 mg = 1 tab(s), Oral, q8hr, # 12 tab(s), Refills(s) 0, Pharmacy: [facility], 151, cm, 03/28/24 14:36:00 EDT, Height/Length Dosing, 73, kg, 03/28/24 14:36:00 EDT, Weight Dosing Start Date: 04/19/24 Status: Ordered Start: 07-04-2022 End: 11-21-2022 ondansetron (ZOFRAN) 4 MG/2M L injection Potassium Chloride (20 sources) Start: 10-20-2023 End: 10-14-2024 Potassium Chloride (Eqv-Klor -Con 10) 10 mEq oral tablet, extended release 10 mEq, Oral, Daily, X 90 day(s), # 90 tab(s), Refills(s) 3, Pharmacy: [facility], 151, cm, 10/20/23 14:16:00 EST, Height/Length Dosing, 71.2, kg, 10/20/23 14:16:00 EST, Weight Dosing Start Date: 10/20/23 Stop Date: 10/14/24 Status: Ordered Start: 06-12-2023 potassium chlo ride (K-TAB) 10 mEq tablet Take 1 tablet by mouth every 48 hours. 06/12/2023 Active Start: 01-06-2023 End: 01-01-2024 Potassium Chloride (Eqv-Klor -Con 10) 10 mEq oral tablet, extended release 10 mEq, Oral, Daily, X 90 day(s), # 90 tab(s), Refills(s) 3, Pharmacy: [facility], 150.1, cm, 12/23/22 10:52:00 EDT, Height/Length Dosing, 71.5, kg, 12/23/22 10:52:00 EDT, Weight Dosing Start Date: 01/06/23 Stop Date: 01/01/24 Status: Ordered Potassium Chloride Shoaib ER (POTASSIUM CHLORIDE SHOAIB CR ORAL) (2 sources) take 10 mEq by mouth every other day Potassium Chloride Shoaib ER (POTASSIUM CHLORIDE SHOAIB CR ORAL) Take 10 mEq by mouth. Once a day every other day 0 Active predniSONE 20 mg oral tablet (7 sources) Start: 10-06-2024 take 2 tablets by mouth once daily Prednisone 20 mg tablet Active 20 MG PO .COMPLEX October 06, 2024 12:00am Take 2 tabs po daily x 5 days Start: 12-23-2022 take 1 tablet by kia th once daily predniSONE 10 mg Tab 10 mg = 1 tab(s), Oral, Daily, 5 PO QD FOR 5 DAYS, THE 4 QD FOR 5 DAYS, THEN 3 QD FOR 5 DAYS, THEN 2 QD FOR 5 DAYS THEN 1 QD, # 75 tab(s), Refills(s) 0, Pharmacy: [facility], 150.1, cm, 12/23/22 10:52:00 EDT, Height/Length Dosing, 71.5... Start Date: 12/23/22 Status: Ordered take 2 tablets by [facility] once daily predniSONE (DELTASONE) 20 MG tablet Take 40 mg by mouth daily. 0 Active ProFe 180 mg oral capsule (1 source) Start: 10-01-2023 take 1 capsule by mouth once daily ProFe 180 mg oral capsule 180 mg = 1 cap(s), Oral, Daily, # 100 cap(s), Refills(s) 0, Pharmacy: [facility], 151, cm, 09/23/23 13:15:00 EST, Height/Length Dosing, 70.8, kg, 09/23/23 13:15:00 EST, Weight Dosing Start Date: 10/01/23 Status: Ordered QUEtiapine 100 mg oral tablet (1 source) Atypical Antipsychotic Start: 06-29-2024 SEROquel 100 mg Tab 100 mg = 1 tab(s), Oral, Daily, At night for sleep. OK to take a half and increase to the full as needed., # 90 tab(s), Refills(s) 0, Pharmacy: [facility], 151, cm, 06/29/24 12:57:00 EST, Height/Length Dosing, 70.1, kg, 06/29/24 12:57:00 EST, Weight Dosing Start Date: 06/29/24 Status: Ordered sacubitril 24 mg / valsartan 26 mg oral tablet (20 sources) Angiotensin 2 Receptor Jordyn Start: 01-25-2024 End: 05-13-2024 Entresto 24 mg-26 mg oral tablet 1 tab(s), Oral, BID, 60 tab(s), Refill(s) 0, High blood pressure Start Date: 01/25/24 Status: Ordered Quantity: 60.0 Unit: tab(s) Repeat number: 1 72 hr scopolamine 0.0139 mg/hr transdermal system (1 source) Anticholinergic Start: 07-04-2022 scopolamine (TRANSDERM-SCOP) 1 MG/3DAYS patch Senna Plus 50 mg-8.6 mg Tab (7 sources) Start: 11-03-2022 take 1 tablet by mouth once daily Senna Plus 50 mg-8.6 mg Tab 1 tab(s), Oral, Daily, Refill(s) 0 Start Date: 11/03/22 Status: Ordered sennosides, [facility] 8.6 mg oral tablet (1 source) Start: 07-06-2022 End: 07-13-2022 take 1 tablet by mouth once daily senna (SENOKOT) 8.6 MG tablet Take 1 Tablet by mouth daily for 7 days. 7 Tablet 0 07/06/2022 07/13/2022 Active Symbicort 160/4.5 inhalation aerosol with adapter (4 sources) Start: 09-23-2023 take 2 puff(s) by inhalation twice daily Symbicort 160/4.5 inhalation aerosol with adapter 2 puff(s), Inhalation, BID, 3 EA, Refill(s) 0, [facility], 151, cm, 09/23/23 13:15:00 EST, Height/Length Dosing, 70.8, kg, 09/23/23 13:15:00 EST, Weight Dosing Start Date: 09/23/23 Status: Ordered Syringe With Needle (Bd Luer-Preethi Syringe) 3 mL 23 x 1 syringe (1 source) Start: 10-06-2024 Syringe With Needle (Bd Luer-Preethi Syringe) 3 mL 23 x 1 syringe Active ML .ROUTE .MEDSUPPLY October 06, 2024 12:00am As directed traZODone hydrochloride 50 mg oral tablet (10 sources) Serotonin Reuptake Inhibitor Start: 05-30-2024 take 1 tablet by mouth once daily at bedtime traZODONE 50 mg Tab 50 mg = 1 tab(s), Oral, Once a day (at bedtime), Refills(s) 0 Start Date: 05/30/24 Status: Ordered Start: 02-15-2024 take 1 tablet by kia th once daily at bedtime traZODONE 50 mg Tab 50 mg = 1 tab(s), Oral, Once a day (at bedtime), # 30 tab(s), Refills(s) 0, Pharmacy: [facility], 151, cm, 02/15/24 15:05:00 EDT, Height/Length Dosing, 72.7, kg, 02/15/24 15:05:00 EDT, Weight Dosing Start Date: 02/15/24 Status: Ordered Ventolin HFA 90 mcg/inh Aerosol-Adpt (4 sources) Start: 01-06-2023 take 2 puff(s) by inhalation every four hours for wheezing Ventolin HFA 90 mcg/inh Aerosol-Adpt 2 puff(s), Inhalation, q4hr for wheezing, 3 EA, Refill(s) 3, [facility], 150.1, cm, 12/23/22 10:52:00 EDT, Height/Length Dosing, 71.5, kg, 12/23/22 10:52:00 EDT, Weight Dosing Start Date: 01/06/23 Status: Ordered vitamin b12 1 mg/ml injectable solution (9 sources) Vitamin B12 Start: 07-24-2024 inject 1 mL by intramuscular injection every other week cyanocobalamin 1000 mcg/mL Inj See Instructions, 1 mL IntraMuscular every other week, # 10 mL, Refills(s) 3, Pharmacy: [facility], 151, cm, 07/11/24 14:31:00 EST, Height/Length Dosing, 69.9, kg, 07/11/24 14:31:00 EST, Weight Dosing Start Date: 07/24/24 Status: Ordered Quantity: 10.0 Unit: mL Repeat number: 4 Indication: Deficiency of other specified B group vitamins Vitamin D3 5000 intl units (125 mcg) oral tab (4 sources) Start: 01-06-2023 take 1 tablet by mouth once daily Vitamin D3 5000 intl units (125 mcg) oral tab 125 mcg = 1 tab(s), Oral, Daily, # 90 tab(s), Refills(s) 0, Pharmacy: [facility], 150.1, cm, 12/23/22 10:52:00 EDT, Height/Length Dosing, 71.5, kg, 12/23/22 10:52:00 EDT, Weight Dosing Start Date: 01/06/23 Status: Ordered Completed/Discontinued Medications Medication Drug Class(es) Dates Sig (Normalized) Sig (Original) albuterol 0.83 mg/ml inhalation solution (2 sources) beta2-Adrenergic Agonist Start: 07-04-2022 End: 07-06-2022 albuterol (PROVENTIL) (2.5 MG/3ML) 0.083% nebulizer solution amLODIPine 10 mg oral tablet (20 sources) Dihydropyridine Calcium Channel Jordyn Start: 12-18-2024 take 1 tablet by mouth once daily amLODIPine 10 mg Tab 10 mg = 1 tab(s), Oral, Daily, TAKE 1 TABLET BY MOUTH DAILY, # 90 tab(s), Refills(s) 3, Pharmacy: [facility], 151, cm, 12/06/24 12:32:00 EDT, Height/Length Dosing, 73.4, kg, 12/06/24 12:32:00 EDT, Weight Dosing Start Date: 12/18/24 Status: Ordered Quantity: 90.0 Unit: tab(s) Repeat number: 4 Start: 11-01-2024 take 1 tablet by kia th once daily amLODIPine 10 mg Tab 10 mg = 1 tab(s), Oral, Daily, TAKE 1 TABLET BY MOUTH DAILY, # 30 tab(s), Refills(s) 0, Pharmacy: [facility], 151, cm, 10/31/24 13:13:00 EDT, Height/Length Dosing, 72.9, kg, 10/31/24 13:13:00 EDT, Weight Dosing Start Date: 11/01/24 Status: Ordered Quantity: 30.0 Unit: tab(s) Repeat number: 1 Start: 01-06-2023 End: 10-14-2024 take 1 tablet by mouth once daily Amlodipine 10 mg tablet Active 10 MG PO Daily October 06, 2024 12:00am atorvastatin 80 mg oral tablet (20 sources) HMG-CoA Reductase Inhibitor Start: 12-18-2024 take 1 tablet by mouth once daily atorvastatin 80 mg Tab 80 mg = 1 tab(s), Oral, Daily, TAKE 1 TABLET BY MOUTH DAILY, # 90 tab(s), Refills(s) 3, Pharmacy: [facility], 151, cm, 12/06/24 12:32:00 EDT, Height/Length Dosing, 73.4, kg, 12/06/24 12:32:00 EDT, Weight Dosing Start Date: 12/18/24 Status: Ordered Quantity: 90.0 Unit: tab(s) Repeat number: 4 Start: 11-01-2024 take 1 tablet by kia once daily atorvastatin 80 mg Tab 80 mg = 1 tab(s), Oral, Daily, TAKE 1 TABLET BY MOUTH DAILY, # 30 tab(s), Refills(s) 0, Pharmacy: [facility], 151, cm, 10/31/24 13:13:00 EDT, Height/Length Dosing, 72.9, kg, 10/31/24 13:13:00 EDT, Weight Dosing Start Date: 11/01/24 Status: Ordered Quantity: 30.0 Unit: tab(s) Repeat number: 1 Start: 01-06-2023 End: 10-19-2024 take 1 tablet by mouth once daily Atorvastatin 80 mg tablet Active 80 MG PO Daily October 06, 2024 12:00am Start: 07-04-2022 take 80 mg by mouth once daily 80 mg, Oral, DAILY, First dose on 07/04/22 at 0900, Until Discontinued calcium chloride 0.0014 meq/ml / potassium chloride 0.004 meq/ml / sodium chloride 0.103 meq/ml / sodium lactate 0.028 meq/ml injectable solution (1 source) Start: 07-04-2022 End: 07-06-2022 lactated ringers iv infusion esomeprazole 40 mg delayed release oral capsule (20 sources) Proton Pump Inhibitor Start: 08-08-2024 take 1 capsule by mouth twice daily esomeprazole 40 mg Cap-EC 40 mg = 1 cap(s), Oral, BID, TAKE 1 CAPSULE BY MOUTH TWICE DAILY Covering for Caridad Conway, # 180 cap(s), Refills(s) 3, Pharmacy: [facility], 151, cm, 07/25/24 13:56:00 EST, Height/Length Dosing, 70.3, kg, 07/25/24 13:56:00 EST, Weight Dosing Start Date: 08/08/24 Status: Ordered Quantity: 180.0 Unit: cap(s) Repeat number: 4 Start: 01-13-2023 take 1 capsule by [facility] twice daily esomeprazole 40 mg Cap-EC 40 mg = 1 cap(s), Oral, BID, TAKE 1 CAPSULE BY MOUTH TWICE DAILY, # 180 cap(s), Refills(s) 3, Pharmacy: [facility], 151, cm, 06/24/23 14:25:00 EST, Height/Length Dosing, 69.5, kg, 06/24/23 14:25:00 EST, Weight Dosing Start Date: 07/26/23 Status: Ordered Start: 07-04-2022 End: 07-04-2022 esomeprazole (NEXIUM) 40 MG injection 1 ml HYDROmorphone hydrochloride 1 mg/ml cartridge (1 source) Opioid Agonist Start: 07-04-2022 End: 07-06-2022 HYDROmorphone (DILAUDID) 1 mg/mL injection HYDROmorphone (DILAUDID) 0.2 MG/ML injection 0.2 mg (1 source) Start: 07-04-2022 End: 07-06-2022 HYDROmorphone (DILAUDID) 0.2 MG/ML injection 0.2 mg iohexol (OMNIPAQUE) 300 MG/ML injection (1 source) Start: 07-05-2022 End: 07-05-2022 iohexol (OMNIPAQUE) 300 MG/ML injection ipratropium bromide 0.2 mg/ml inhalation solution (1 source) Anticholinergic Start: 07-04-2022 End: 07-06-2022 ipratropium (ATROVENT) 0.02 % nebulizer solution 100 ml magnesium sulfate 10 mg/ml injection (1 source) Start: 07-05-2022 End: 07-05-2022 magnesium sulfate in dextrose 5 % 100 mL ivpb 1,000 mg 100 mL 1 ml morphine sulfate 4 mg/ml injection (1 source) Opioid Agonist Start: 07-04-2022 End: 07-04-2022 morphine sulfate 4 MG/ML injection Problems Active Problems Problem Classification Problem Date Documented Da te Episodic/Chronic Abdominal hernia (20 sources) Diaphragmatic hernia without obstruction or gangrene; Translations: [Obstructed incisional ventral hernia] Onset: 2 Episodic Abdominal pain (20 sources) Unspecified abdominal pain; Translations: [Right inguinal pain] Onset: 2 Episodic Administrative/social admission (3 sources) Patient encounter status; Translations: [Persons encountering health services in other specified circumstances] Onset: 2 Episodic Asthma (20 sources) Unspecified asthma with status asthmaticus; Translations: [Severe persistent asthma with status asthmaticus] Onset: 2 Chronic Cardiac and circulatory congenital anomalies (1 source) Arteriovenous malformation, other site; Translations: [ARTERIOVENOUS MALFORMATION OTH SITE] Onset: 2 Chronic Chronic obstructive pulmonary disease and bronchiectasis (20 sources) Bronchiectasis with acute lower respiratory infection; Translations: [Bronchiectasis with (acute) exacerbation] Onset: 2 Chronic Chronic obstructive pulmonary disease and bronchiectasis (20 sources) Bronchitis 11-03-2022 Episodic Comment on above: chronic Conditions associated with dizziness or vertigo (4 sources) Vertigo 11-30-2023 Episodic Conduction disorders (3 sources) Atrioventricular block, first degree; Translations: [Left bundle-branch block, unspecified] Onset: 3 04-13-2024 Chronic Congestive heart failure; nonhypertensive (20 sources) Acute systolic (congestive) heart failure; Translations: [Heart failure, unspecified] Onset: 3 Chronic Comment on above: combined systolic an d diastolic Coronary atherosclerosis and other heart disease (16 sources) Atherosclerotic heart disease of [place] coronary artery without angina pectoris; Translations: [Coronary arteriosclerosis] Onset: 3 Chronic Comment on above: Noted in 05/17/2024 U T consultation, added per outpatient [facility] policy. Deficiency and other anemia (1 source) Iron deficiency anemia secondary to blood loss (chronic); Translations: [IRON DEFIC ANEMIA SEC BLD LOSS CHRN] Onset: 3 Chronic Deficiency and other anemia (20 sources) Anemia; Translations: [Anemia, unspecified] Onset: 4 11-03-2022 Episodic Deficiency and other anemia (20 sources) Iron deficiency anemia; Translations: [Iron deficiency anemia, unspecified] Onset: 4 06-24-2023 Episodic Diabetes mellitus with complications (1 source) Type 2 diabetes mellitus with unspecified complications; Translations: [TYPE 2 DM W/UNS COMPLICATIONS] Onset: 2 Chronic Diabetes mellitus without complication (20 sources) Type 2 diabetes mellitus without complications; Translations: [Type 2 diabetes mellitus] Onset: 2 Chronic Disorders of lipid metabolism (6 sources) Hyperlipidemia; Translations: [Hyperlipidemia, unspecified] Onset: 4 03-21-2024 Chronic E Codes: Natural/environment (1 source) Bite of nonvenomous arthropod; Translations: [Bitten or stung by nonvenomous insect and other nonvenomous arthropods, initial encounter] Onset: 5 Episodic Esophageal disorders (20 sources) Gastro-esophageal reflux disease without esophagitis; Translations: [Morales's esophagus without dysplasia] Onset: 2 12-23-2022 Chronic Essential hypertension (9 sources) Essential (primary) hypertension; Translations: [Essential hypertension] Onset: 2 03-21-2024 Chronic Gastritis and duodenitis (1 source) Unspecified chronic gastritis without bleeding; Translations: [UNS CHRONIC GASTRITIS W/O BLEEDING] Onset: 2 Chronic Heart valve disorders (1 source) Nonrheumatic mitral (valve) insufficiency; Translations: [NONRHEUMATIC MITRAL INSUFFICIENCY] Onset: 3 Chronic Heart valve disorders (20 sources) Systolic murmur 2023 Episodic Hepatitis (20 sources) Nonalcoholic steatohepatitis ([place]); Translations: [Nonalcoholic steatohepatitis] Onset: 2 11-03-2022 Chronic Hypertension with complications and secondary hypertension (5 sources) Hypertensive heart disease with heart failure; Translations: [HTN HEART DISEASE W/HEART FAIL] Onset: 3 Chronic Malaise and fatigue (20 sources) Other fatigue; Translations: [Weakness] Onset: 2 Episodic Mycoses (2 sources) Candidal paronychia ; Translations: [Candidiasis of skin and nail] Onset: 5 Episodic Neoplasms of unspecified nature or uncertain behavior (20 sources) Thrombocytosis 05-25-2023 Chronic Nonspecific chest pain (7 sources) Chest pain, unspecified; Translations: [Other chest pain] Onset: 3 Episodic Nutritional deficiencies (20 sources) Vitamin D deficiency, unspecified; Translations: [Deficiency of vitamin D3] Onset: 2 11-03-2022 Chronic Nutritional deficiencies (20 sources) Vitamin B deficiency; Translations: [Deficiency of other specified B group vitamins] Onset: 4 Episodic Osteoarthritis (20 sources) Arthritis 02-22-2023 Chronic Osteoporosis (1 source) Age-related osteoporosis without current pathological fracture; Translations: [AGE-REL OSTEOPOR W/O CURR PATH FX] Onset: 3 Chronic Other aftercare (1 source) Postoperative visit; Translations: [Encounter for other specified surgical aftercare] 04-20-2024 Episodic Other aftercare (14 sources) Post-discharge follow-up 04-25-2024 Episodic Other aftercare (1 source) Encounter for other specified surgical aftercare; Translations: [Postoperative visit] Onset: 4 Episodic Other aftercare (1 source) Long-term current use of aspirin; Translations: [senior care (current) use of aspirin] Episodic Other aftercare (1 source) Long-term current use of drug therapy; Translations: [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] Episodic Other bone disease and musculoskeletal deformities (20 sources) Osteopenia 02-22-2023 Episodic Other disorders of stomach and duodenum (2 sources) Disorder of stomach 12-06-2024 Episodic Other gastrointestinal disorders (3 sources) Intestinal malabsorption; Translations: [Intestinal malabsorption, unspecified] Onset: 4 Chronic Other gastrointestinal disorders (20 sources) Malabsorption - iron 01-25-2024 Chronic Other gastrointestinal disorders (2 sources) Esophageal dysphagia 12-06-2024 Episodic Other hematologic conditions (3 sources) Thrombocytosis; Translations: [Thrombocytosis, unspecified] Onset: 4 Episodic Other liver diseases (1 source) Fatty (change of) liver, not elsewhere classified; Translations: [FATTY CHANGE LIVER NEC] Onset: 3 Chronic Other liver diseases (2 sources) Steatosis of liver 12-06-2024 Chronic Other liver diseases (2 sources) Alkaline phosphatase raised 12-06-2024 Episodic Other lower respiratory disease (20 sources) Hypoxemia 11-03-2022 Episodic Other lower respiratory disease (20 sources) Cough 11-30-2023 Episodic Other lower respiratory disease (1 source) Hypoxia; Translations: [Hypoxemia] Onset: 4 04-10-2024 Episodic Other lower respiratory disease (9 sources) Rib pain 10-31-2024 Episodic Other nervous system disorders (1 source) Other chronic pain; Translations: [OTHER CHRONIC PAIN] Onset: 2 Chronic Other nervous system disorders (1 source) Acute postoperative pain; Translations: [Other acute postprocedural pain] Onset: 4 04-10-2024 Episodic Other nervous system disorders (1 source) Other acute postprocedural pain; Translations: [Acute post-operative pain] Onset: 4 Episodic Other nutritional; endocrine; and metabolic disorders (2 sources) Obese class I; Translations: [Body mass index (BMI) 31.0-31.9, adult] Onset: 4 Chronic Other nutritional; endocrine; and metabolic disorders (20 sources) Body mass index 30+ - obesity 10-06-2023 Chronic Other nutritional; endocrine; and metabolic disorders (18 sources) Obesity 10-06-2023 Chronic Other nutritional; endocrine; and metabolic disorders (1 source) Obese class II; Translations: [Obesity, unspecified] Onset: 4 04-12-2024 Chronic Other screening for suspected conditions (not mental disorders or infectious disease) (8 sources) Abnormal electrocardiogram [ECG] [EKG]; Translations: [Encounter for screening mammogram for malignant neoplasm of breast] Onset: 2 Episodic Pleurisy; pneumothorax; pulmonary collapse (2 sources) Pleurisy; Translations: [Pleural effusion] Onset: 2 04-11-2024 Episodic Poisoning by nonmedicinal substances (1 source) Tick bite 12-29-2024 Episodic Pulmonary heart disease (20 sources) Pulmonary hypertension, unspecified; Translations: [Pulmonary hypertension due to lung diseases and hypoxia] Onset: 3 11-03-2022 Chronic Residual codes; unclassified (14 sources) Tobacco user; Translations: [Tobacco use] Onset: 4 Episodic Residual codes; unclassified (20 sources) Insomnia 02-15-2024 Episodic Residual codes; unclassified (1 source) History of hernia repair; Translations: [Other specified postprocedural states] Onset: 4 04-10-2024 Episodic Respiratory failure; insufficiency; arrest (adult) (20 sources) Dependence on supplemental oxygen; Translations: [Chronic hypoxemic respiratory failure] Onset: 3 05-24-2023 Chronic Comment on above: Added per Dr. Man bazzi response, added per outpaitent [facility]I policy. Screening and history of mental health and substance abuse codes (20 sources) Tobacco use and exposure - finding 10-06-2023 Chronic Screening and history of mental health and substance abuse codes (4 sources) H/O: Disorder; Translations: [Personal history of nicotine dependence] Onset: 3 Episodic Substance-related disorders (1 source) Nicotine dependence, cigarettes, uncomplicated; Translations: [NICOTINE DEPEND CIGARETTES UNCOMP] Onset: 3 Chronic Superficial injury; contusion (20 sources) Traumatic blister of hand; Translations: [Insect bite, nonvenomous, lower leg] Onset: 5 02-22-2023 Episodic Unclassified (1 source) PERSONAL HISTORY OF COVID-19; Translations: [PERSONAL HISTORY OF COVID-19] Onset: 3 Unclassified (3 sources) CONTACT W/AND (SUSP) EXPOS COVID-19; Translations: [CONTACT W/AND (SUSP) EXPOS COVID-19] Onset: 2 Unclassified (3 sources) COUGH, UNSPECIFIED; Translations: [COUGH, UNSPECIFIED] Onset: 2 Unclassified (1 source) LOW BACK PAIN, UNSPECIFIED; Translations: [LOW BACK PAIN, UNSPECIFIED] Onset: 2 Unclassified (8 sources) Pain of right shoulder region 04-20-2023 Unclassified (14 sources) History of hernia repair 04-25-2024 Unclassified (1 source) Non-smoker 06-29-2024 Viral infection (1 source) COVID-19; Translations: [COVID-19] Onset: 2 Past or Other Problems Problem Classification Problem Date Documented Da te Episodic/Chronic Acute posthemorrhagic anemia (1 source) Acute posthemorrhagic anemia; Translations: [Acute posthemorrhagic anemia] Onset: 4 Resolved: 4 04-13-2024 Episodic Cancer of uterus (1 source) Personal history of malignant neoplasm of other parts of uterus; Translations: [PERS HX MAL NEOPLSM OTH PART UTRUS] Onset: 2 Episodic Complications of surgical procedures or medical care (1 source) Postoperative shock; Translations: [Postprocedural shock unspecified, initial encounter] Onset: 4 Resolved: 4 04-13-2024 Episodic Coronary atherosclerosis and other heart disease (3 sources) Presence of coronary angioplasty implant and graft; Translations: [PRESENCE COR ANGPLSTY IMPLANT AND GRAFT] Onset: 2 Episodic Deficiency and other anemia (1 source) Anemia, unspecified; Translations: [ANEMIA UNSPECIFIED] Onset: 3 Episodic Deficiency and other anemia (1 source) Other iron deficiency anemias; Translations: [OTHER IRON DEFICIENCY ANEMIAS] Onset: 3 Episodic Deficiency and other anemia (4 sources) Iron deficiency anemia, unspecified; Translations: [IRON DEFICIENCY ANEMIA UNSPECIFIED] Onset: 2 Episodic Gastrointestinal hemorrhage (1 source) Gastrointestinal hemorrhage, unspecified; Translations: [GASTROINTESTINAL HEMORRHAGE UNS] Onset: 2 Episodic Intestinal obstruction without hernia (1 source) Unspecified intestinal obstruction, unspecified as to partial versus complete obstruction; Translations: [UNS INTEST OBS UNS PART VS CMPL OBS] Onset: 2 Episodic Other aftercare (1 source) senior care (current) use of aspirin; Translations: [YEAST MAKER CURRENT USE OF ASPIRIN] Onset: 3 Episodic Other aftercare (1 source) 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; Translations: [OTH PENITENTIARY CURRENT DRUG THERAPY] Onset: 3 Episodic Other aftercare (1 source) 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 of oral hypoglycemic drugs; Translations: [YEAST MAKER USE ORAL HYPOGLYCEMIC DX] Onset: 3 Episodic Other aftercare (1 source) 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 of insulin; Translations: [PENITENTIARY CURRENT USE OF INSULIN] Onset: 3 Episodic Other lower respiratory disease (1 source) Other forms of dyspnea; Translations: [OTHER FORMS OF DYSPNEA] Onset: 3 Episodic Other lower respiratory disease (4 sources) Dyspnea, unspecified; Translations: [DYSPNEA UNSPECIFIED] Onset: 3 Episodic Other lower respiratory disease (1 source) Hypoxemia; Translations: [HYPOXEMIA] Onset: 3 Episodic Other lower respiratory disease (1 source) Shortness of breath; Translations: [SHORTNESS OF BREATH] Onset: 2 Episodic Other upper respiratory infections (1 source) Acute upper respiratory infection, unspecified; Translations: [ACUTE UP RESPIRATORY INFECTION UNS] Onset: 2 Episodic Pneumonia (except that caused by tuberculosis or sexually transmitted disease) (6 sources) Pneumonia, unspecified organism; Translations: [Pneumonia due to other specified bacteria] Onset: 2 Episodic Residual codes; unclassified (1 source) Family history of ischemic heart disease and other diseases of the circulatory system; Translations: [FAM HX ISCHEMIC HRT DZ OTH DZ CIRC] Onset: 3 Episodic Residual codes; unclassified (1 source) Family history of malignant neoplasm of trachea, bronchus and lung; Translations: [FAM HX MALIG NEOPLSM TRACH BRON LNG] Onset: 3 Episodic Residual codes; unclassified (1 source) Acquired absence of both cervix and uterus; Translations: [ACQUIRED ABSENCE BOTH CERVIX AND UTERUS] Onset: 3 Episodic Residual codes; unclassified (1 source) Acquired absence of other specified parts of digestive tract; Translations: [ACQ ABSENCE OTH PART DIGESTV TRACT] Onset: 2 Episodic Residual codes; unclassified (1 source) Acquired absence of ovaries, bilateral; Translations: [ACQUIRED ABSENCE OVARIES BILATERAL] Onset: 2 Episodic Residual codes; unclassified (1 source) Family history of malignant neoplasm of breast; Translations: [FAMILY HX MALIG NEOPLASM OF BREAST] Onset: 2 Episodic Unclassified (1 source) CONTACT W/AND (SUSP) EXPOS COVID-19; Translations: [CONTACT W/AND (SUSP) EXPOS COVID-19] Onset: 2 Unclassified (1 source) COUGH, UNSPECIFIED; Translations: [COUGH, UNSPECIFIED] Onset: 2 Results Test Name Value Interpretation Reference Range Facil it Surgical Pathology Reporton 12-25-2024 Surgical Pathology Report [address] [id number]- Surgical Pathology Report Collected Date/Time: 12/19/2024 11:28 EDT Pathologist: Tyrone GUY PhD, Joo Doherty Received Date/Time: 12/19/2024 13:20 EDT Kvng GUY, Jazlyn Calderon MD, Jazlyn Fonseca Surgical Pathology Report - 12/25/2024 12:08 EDT - Auth (Verified) Final Diagnosis A: STOMACH, BIOPSY: - MILD CHRONIC INACTIVE GASTRITIS. - PROTON PUMP INHIBITOR INDUCED CHANGES SUGGESTED. - NO INTESTINAL METAPLASIA. - NO H. PYLORI MICROORGANISMS IDENTIFIED WITH IMMUNOSTAIN. B: ESOPHAGUS, BIOPSY: - SQUAMOUS COLUMNAR CELL MUCOSAL JUNCTION WITH MILD CHRONIC INFLAMMATION. - NO INTESTINAL METAPLASIA IDENTIFIED. C: DUODENUM, BIOPSY: - DUODENAL MUCOSA WITHIN NORMAL LIMITS. (Electronic Signature) Joo Hansen MD PhD 12/25/2024 12:08 Diagnosis Comment B. No fungal microorganisms identified with GMS stain. Clinical Information Thrombocytosis, malabsorption of iron, iron deficiency anemia, melena Pre-Op Diagnosis: Thrombocytosis, malabsorption of iron, iron deficiency anemia, melena Procedure: EGD Post-Op Diagnosis: 1. Nonobstructing Schatzki's ring status post dilation 2. Hiatal hernia 3. Atrophic gastropathy status post biopsies Specimen(s) Received A.Gastric biopsy B.Esophagus biopsy C.Duodenal biopsy Gross Description A: Received in formalin labeled with patient name, number, and gastric biopsy are four fragments of meraz/pink tissue ranging from 0.3 cm up to 0.4 cm in greatest dimension. Specimen is entirely submitted in one cassette. B: Received in formalin labeled with patient name, number, and esophagus biopsy are multiple fragments of meraz/pink tissue ranging from less than 0.1 cm up to 0.8 cm in greatest dimension. Specimen is entirely submitted in one cassette. C: Received in formalin labeled with patient name, number, and duodenal biopsy are four fragments of meraz/pink tissue ranging from less than 0.1 cm up to 0.2 cm in greatest dimension. Specimen is entirely submitted in one cassette. (DC) DC:[facility] Microscopic Description Microscopic examination performed unless gross only specified. Surgical Pathology Report Collected Date/Time: 12/19/2024 11:28 EDT Pathologist: Tyrone GUY PhD, Joo Doherty Received Date/Time: 12/19/2024 13:20 EDT Kvng GUY, Jazlyn Willett MD Microscopic Description This report was transcribed using voice recognition technology and might contain unintended computerized coordinator of health services errors. The use of one or more reagents in the above tests is regulated as an analyte specific reagent (ASR). The test or tests are ordered following initial H&E microscopic examination. The performance characteristics were determined by the [facility]. They have not been cleared or approved by the US Food and Drug Administration. The FDA has determined that such clearance or approval is not necessary. These tests are used for clinical purposes. They should not be regarded as investigational or for research. Appropriate positive and negative controls are performed and are acceptable. This report was transcribed using voice recognition technology and might contain unintended computerized coordinator of health services errors. Normal [facility] Comment on above: Performed By: #### [id number] #### [facility] [address] [place] [address] Main OR Intraoperative Recor don 12-22-2024 Main OR Intraoperative Record Main OR Intraoperative Record IntraOp Document Type FT Summary Primary Physician: Jazlyn Calderon MD Finalized Date/Time: 12/22/24 11:16:06 Pt. Name: YURISALVADORJOHANNA/Sex: 1955 Female Med Rec #: [id number] Physician: Jazlyn Calderon MD Financial #: [id number] Pt. Type: O Room/Bed: / Admit/Disch: 12/19/24 08:39:49 - 12/19/24 23:59:59 Institution: Case Times FT Entry 1 Patient Times In Room 12/19/24 11:13:00 Out Room 12/19/24 11:31:00 Procedure Times Start 12/19/24 11:18:00 Stop 12/19/24 11:26:00 Anesthesia Times Start 12/19/24 11:13:00 Stop 12/19/24 11:31:00 Last Modified By: Russell HERNANDEZ, Mayra Hinojosa 12/19/24 11:31:41 General Comments: EGD end time at 1123./NATALIARN Colonoscopy start time at Case Attendance FT Entry 1 Entry 2 Entry 3 Case Attendee Charley GUY, Juan Pablo Wells RN, Sylvia Yuen Role Performed Anesthesiologist of Oil Laboratory Analyst - Primary Scrub - Primary Record Time In 12/19/24 11:13:00 12/19/24 11:13:00 12/19/24 11:13:00 Time Out 12/19/24 11:31:00 12/19/24 11:31:00 12/19/24 11:31:00 Procedure EGD AND COLONOSCOPY(.) EGD AND COLONOSCOPY(.) EGD AND COLONOSCOPY(.) Comments Last Modified By: Russell HERNANDEZ, Mayar Wells RN, Mayra Urena RN 12/19/24 11:31:41 12/19/24 11:31:41 12/19/24 11:31:41 Entry 4 Entry 5 Case Attendee Arabella QUIÑONES, Karishma Calderon MD, Jazlyn Moreno Role Performed Staff - Other Surgeon - Primary Time In 12/19/24 11:13:00 12/19/24 11:13:00 Time Out 12/19/24 11:31:00 12/19/24 11:31:00 Procedure EGD AND COLONOSCOPY(.) EGD AND COLONOSCOPY(.) Comments Last Modified By: Russell HERNANDEZ, Mayra Wells RN, Mayra Hinojosa 12/19/24 11:31:41 12/19/24 11:31:41 Perioperative Protocols FT Pre-Care Text: Implements protective measures prior to operative or invasive procedure, confirms identity before the operative or invasive procedure, verifies operative procedure, surgical site, and laterality Entry 1 Procedure(s) EGD AND COLONOSCOPY(.) Patient Identity Birthday, ID Band Verified (select at Check, Patient least 2): Participation Consents / H and P Anesthesia Consent, Operative Site N/A Verified H&P, Surgery/Procedure Marking Verified Consent Surgical Site No Laterality Verified n/a Verified Procedure Verified Yes Correct Patient Yes Position Verified Availability Equipment, Medication Prep Dry n/a Verified (If Applicable) PreOp Antibiotic No Time Out Charley GUY, Juan Pablo Hernandez, Given Participants Russell HERNANDEZ, Emigdio Soria Kirstyn K, Schafer CST, Kvng Phelan MD, Jazlyn Hung Time Out Complete 12/19/24 11:14:00 Outcomes Met? Yes Last Modified By: Mayra Wells RN 12/19/24 11:14:53 Post-Care Text: The patient is free from signs and symptoms of injury caused by extraneous objects Allergy Information FT Pre-Care Text: Verifies allergies Entry 1 Allergies Reviewed? Yes Allergies Reviewed Self/Patient With Outcomes Met? Yes Last Modified By: Mayra Wells RN 12/19/24 11:15:00 Post-Care Text: The patient received appropriate medication(s) safely administered during the perioperative period Surgical Procedures FT Entry 1 Procedure Description Procedure EGD AND COLONOSCOPY Modifiers . Surgeon Description EGD with duodenal biopsy, gastric biopsy and esophageal biopsy. Colonoscopy Primary Procedure Yes Primary Surgeon Jazlyn Calderon MD Start 12/19/24 11:18:00 Stop 12/19/24 11:26:00 Anesthesia Type General Surgical Service Gastroenterology Wound Class 2 - Clean-Contaminated Last Modified By: Mayra Wells RN 12/19/24 11:26:12 General Case Data FT Pre-Care Text: Classifies surgical wound, implements aseptic technique, initiates traffic control Entry 1 Case Information OR ENDO 1 FT Case Level Level 2 Wound Class 2 - Clean-Contaminated Specialty Gastroenterology ASA Class 3 Preop Diagnosis Thrombocytosis, Postop Same As Preop No malabsorption of iron, iron deficiency anemia, melena Postop Diagnosis EGD- Esophageal ring, Outcomes Met? Yes gastropathy. Colonoscopy- Poor prep. Last Modified By: Mayra Wells RN 12/19/24 11:25:54 Post-Care Text: The patient is free from signs and symptoms of infection Skin Assessment (Pre Procedure) FT Pre-Care Text: Implements protective measures to prevent skin/ tissue injury due to thermal or mechanical sources Evaluates for signs and symptoms of physical injury to skin and tissue Entry 1 Skin Integrity Intact, Clemons, Warm, & Skin Abnormality No Dry Outcomes Met? Yes Last Modified By: Mayra Wells RN 12/19/24 11:16:33 Post-Care Text: The patient is free from signs and symptoms of injury caused by extraneous objects Patient Positioning FT Pre-Care Text: Identifies physical alterations that require additional precautions for procedure-specific positioning, verifies presence of prosthetics or corrective devices, pos (more content not included)... Normal [facility] Discharge Instructionson Discharge Instructions Discharge Instructions JOHANNA MACDONALD :1955 Visit Date:12/19/2024 Inpatient Discharge Instructions Your Care Team Admitting Physician - Jazlyn Calderon MD Referring Physician - Jazlyn Calderon MD Reason for Your Visit THROMBOCYTOSIS, MALABSORPTION OF IRON, IRON DEFICIENCY ANEMIA, MELENA Your Diagnosis Gastropathy Hernia, hiatal Schatzki's ring Tests Performed Pathology Tissue Exam -- Results Pending -- Please visit your patient portal for your results or contact your primary care physician. This Is Your Medications List Misc Prescription (B12) Misc Prescription (B12) Misc Prescription (Misc DME Prescription) Misc Prescription (nebulizer supplies) albuterol-ipratropium (albuterol-ipratropium Inh Ana Cristina 3 mL UD) amlodipine (amLODIPine 10 mg Tab) aspirin (aspirin 81 mg Oral EC Tab) atorvastatin (atorvastatin 80 mg Tab) cyanocobalamin (cyanocobalamin 1000 mcg/mL Inj) esomeprazole (esomeprazole 40 mg Cap-EC) fluticasone nasal (Flonase 0.05 mg/inh [place]) isosorbide mononitrate (isosorbide mononitrate 30 mg ER Tab) nitroglycerin sacubitril-valsartan (Entresto 24 mg-26 mg oral tablet) What to do next Instructions From Your Doctor No qualifying data available. Previously Scheduled Follow-Up Appointments Wednesday 2:00 PM EDT With: Where: [facility] Wednesday 1:40 PM EDT With: Man GUY, Issac Sam Where: [address] [address]- Wednesday 2:00 PM EDT With: Where: [facility] Wednesday 2:30 PM EDT With: Where: [address] [address]- Wednesday 2:00 PM EDT With: Where: [facility] Wednesday 2:00 PM EDT With: Where: [facility] Wednesday 2:00 PM EDT With: Where: [facility] Wednesday 1:00 PM EDT With: Marta GUY, Mhd Yaser Where: [facility] Wednesday 2:00 PM EDT With: Where: [facility] Wednesday 2:00 PM EST With: Where: [facility] Wednesday 2:00 PM EST With: Where: [facility] Wednesday 2:00 PM EST With: Where: [facility] Wednesday2025 2:00 PM EST With: Where: [facility] Wednesday2025 2:00 PM EST With: Where: [facility] Wednesday2025 2:00 PM EDT With: Where: [facility] New Follow Up Appointments after Discharge Follow Up with Kvng GUY, JULI Mir, MED When: Comments: Call for any problems. Call the office in about one week to schedule a follow up appointment to go over results. Where: [address] [place] [address], [address] [place] [address]- [phone] Medications What How Much When Why Instructions Next Dose Unchanged albuterol-ipratropium (albuterol-ipratropium Inh Ana Cristina 3 mL UD) 3 Milliliter Nebulized inhalation (aerosol) 4 times a day Unchanged amlodipine (amLODIPine 10 mg Tab) 1 Tablets By Mouth Every day TAKE 1 TABLET BY MOUTH DAILY Unchanged aspirin (aspirin 81 mg Oral EC Tab) 1 Tablets By Mouth Every day Unchanged atorvastatin (atorvastatin 80 mg Tab) 1 Tablets By Mouth Every day TAKE 1 TABLET BY MOUTH DAILY Unchanged cyanocobalamin (cyanocobalamin 1000 mcg/ mL Inj) See instructions B12 deficiency 1 mL IntraMuscular every other week Unchanged esomeprazole (esomeprazole 40 mg Cap-EC) 1 Capsules By Mouth 2 times a day TAKE 1 CAPSULE BY MOUTH TWICE DAILY Covering for [place] Unchanged fluticasone nasal (Flonase 0.05 mg/ inh [place]) 1 Sprays Nasal Inhalation 2 times a day each nostril Unchanged isosorbide mononitrate (isosorbide mononitrate 30 mg ER Tab) 1 Tablets By Mouth Once a day (in the morning) Unchanged Misc Prescription (B12) See instructions B12 deficiency IntraMuscular Unchanged Misc Prescription (B12) See instructions B12 deficiency dispense quantity sufficient for IM B12 injections: 3 mL syringes and 1 inch/ 23 gauge needles Unchanged Misc Prescription (Misc DME Prescription) See instructions wear O2 as directed Unchanged Misc Prescription (nebulizer supplies) See instructions nebulizer supplies- tubing and cup Unchanged nitroglycerin See instructions 0.4 mg SubLingual as needed for chest pain Unchanged sacubitril-valsartan (Entresto 24 mg-26 mg oral tablet) 1 Tablets By Mouth 2 times a day Test Results No qualifying data available. Allergies Biaxin (Unknown) Cipro (Unknown) Keflex (Unknown) amoxicillin (Unknown) atenolol (Unknown) doxycycline (Unknown) sulfa drugs (Unknown) Problems Ongoing - Any problem that you are currently receiving treatment for. Abdominal pain, right lower quadrant Alkaline phosphatase elevation Arthritis Asthma B12 deficiency Blister of hand BMI 30.0-30.9,adult BMI 31.0-31.9,adult Bronchiectasis Bronchitis Chronic respiratory failure with hypoxia Co (more content not included)... Normal [facility] Comment on above: Result Comment: Elec tronically Signed By: Linh Yen I\.br\Date and Time Signed: 12/19/24 11:42 EDT H&P Updateon 12-19-2024 H&P Update H&P Update Patient: JOHANNA MACDONALD Age: 69 years Sex: Female : 1955 Associated Diagnoses: None Author: Kvng GUY, Jazlyn Hung Preoperative Information Chief compliant/Indication for procedure: Melena, dysphagia, and anemia Chief Complaint as above Review of Systems All systems reviewed, negative except as mentioned above Physical Examination Vital Signs (last 24 hrs) Last Charted Temp Temporal 36.7 DegC (DECEMBER 19:) Heart Rate Monitored 74 bpm (DECEMBER 19:02) Resp Rate 20 br/min (DECEMBER 19:) SBP H 145 mmHg (DECEMBER 19:02) DBP 70 mmHg (DECEMBER 19:) Weight 73.4 kg (DECEMBER 19 08:54) BMI 32.19 (DECEMBER 19 08:54) General: in Nad Abdomen: Soft, NTND Impression and Plan Diagnosis: Melena, dysphagia, and anemia -EGD and colonoscopy Normal [facility] Main OR PACU II Recordon Main OR PACU II Record Main OR PACU II Record PACU Phase II Document Type FT Summary Primary Physician: Jazlyn Calderon MD Finalized Date/Time: 12/19/24 12:39:35 Pt. Name: JOHANNA MACDONALDO.B./Sex: 1955 Female Med Rec #: [id number] Physician: Jazlyn Calderon MD Financial #: [id number] Pt. Type: O Room/Bed: / Admit/Disch: 12/19/24 08:39:49 - Institution: Case Times PACU II FT Pre-Care Text: Identifies barriers to communication and implements measures to provide psychological support and determines knowledge level Develops individualized plan of care, and ensures continuity of care Maintains patient's dignity and privacy, and maintains patient confidentiality Identifies and reports philosophical, cultural, and spiritual beliefs and values Identifies individual values and wishes concerning care administers prescribed antibiotic therapy and immunizing agents as ordered, Evaluates postoperative tissue perfusion Implements thermoregulation measures, and monitors body temperature Evaluates postoperative respiratory status Evaluates postoperative cardiac status Evaluates postoperative neurological status Assesses pain control, collaborated in initiating patient-controlled analgesia and implements alternative methods of pain control Verifies allergies, administers prescribed medications and solutions, evaluates response to medications Entry 1 In PACU II 12/19/24 11:31:00 Discharge from PACU 12/19/24 12:10:00 II Outcomes Met? Yes Last Modified By: Linh Yen I 12/19/24 12:39:31 Post-Care Text: The patient demonstrates knowledge of the expected response to the operative or invasive procedure The patient's care is consistent with the individualized perioperative plan of care The patient's right to privacy is maintained The patient's value system, lifestyle, ethnicity, and culture are considered, respected, and incorporated into the perioperative plan of care The patient participates in decisions affecting his or her perioperative plan of care. The patient is free from signs and symptoms of infection The patient has wound/tissue perfusion consistent with or improved from baseline levels established preoperatively The patient is at or returning to normothermia at the conclusion of the immediate postoperative period The patient's respiratory function is consistent with or improved from baseline levels established preoperatively The patient's cardiovascular status is consistent with or improved from baseline levels established preoperatively The patient's neurological status is consistent with or improved from baseline levels established preoperatively The patient demonstrates and/or reports adequate pain control throughout the perioperative period The patient received appropriate medication(s), safely administered during the perioperative period Finalized By: Linh Yen I Document Signatures Signed By: Linh Yen I 12/19/24 12:39 Normal [facility] Main OR Preoperative Recordo n 12-19-2024 Main OR Preoperative Record Main OR Preoperative Record Holding Area Document Type FT Summary Primary Physician: Jazlyn Calderon MD Finalized Date/Time: 12/19/24 08:54:22 Pt. Name: TORRES JOHANNA Mayorga/Sex: 1955 Female Med Rec #: [id number] Physician: Jazlyn Calderon MD Financial #: [id number] Pt. Type: O Room/Bed: / Admit/Disch: 12/19/24 08:39:49 - Institution: Case Times Holding FT Pre-Care Text: Verifies consent for planned procedure, identifies individual values and wishes concerning care, includes family members in perioperative teaching Secures patient's records' belongings, and valuables, maintains patient's dignity and privacy, and maintains patient confidentiality Entry 1 In Holding 12/19/24 08:50:00 Outcomes Met? Yes Last Modified By: Isabel Amezquita RN 12/19/24 08:52:34 Post-Care Text: The patient participates in decisions affecting his or her perioperative plan of care The patient's right to privacy is maintained Surgery Checklist FT Entry 1 Patient Birthday, ID Band Procedure History and Physical, Identification: Check, Patient Verification: Surgical Consent, With Participation Patient NPO after Midnight: No Date/Time: 12/19/24 04:20:00 Personal Items: Cataract Lens Implant, Personal Items rings, upper/lower Dentures, Jewelry Comment: dentures , cardiac stent x1 Limitations: none Complaints of Pain: No Pain Comment: denies Operative Site n/a Marking: Availability Equipment Verified: Does Patient Smoke Yes If Yes to Smoking. 2 pack /day Cigars or Cigarettes. How much per day? Patient states Yes Comment - Adult spouse- Don postop adult Supervision supervision available Case Cancelled in No Holding Area see comments below for reason Last Modified By: Isabel Amezquita RN 12/19/24 08:54:18 General Comments: Pt. NPO since bowel prep finished at 0420/AW RN Finalized By: Isabel Amezquita RN Document Signatures Signed By: Isabel Amezquita RN 12/19/24 08:54 [facility] Operative Reporton Operative Report Operative Report Patient: JOHANNA MACDONALD Age: 69 years Sex: Female : 1955 Associated Diagnoses: None Author: Jazlyn Calderon MD Pre-Procedure Procedure Date 12/19/2024 11:26:00 . Procedure Type: Esophagogastroduodenosc opy with biopsy. Procedure provider Performed by Jazlyn Calderon MD. Current history and physical Documented on chart. Informed Consent After discussing the rationale, risks and benefits, and alternatives to this procedure, the patient provided signed consent for the procedure. Pre-procedure diagnosis: anemia, dysphagia. Medications (Selected) Inpatient Medications Ordered Sodium Chloride 0.9% IV Ana Cristina 1000 mL 1,000 mL: 1,000 mL, IV, 20 mL/hr, Routine, Start date 12/19/24 7:14:00 EDT, 50 hour(s), Total volume (mL): 1,000, 73.4 kg, 1.75, m2 Zero Hour: Day of Tx Zero Hour: Day of Tx Zero Hour: Day of Tx Zero Hour: Day of Tx Zero Hour: Day of Tx Zero Hour: Day of Tx Zero Hour: Day of Tx Zero Hour: Day of Tx Zero Hour: Day of Tx Zero Hour: Day of Tx Zero Hour: Day of Tx Future Zero Hour: Day of Tx Zero Hour: Day of Tx Zero Hour: Day of Tx Zero Hour: Day of Tx Zero Hour: Day of Tx Zero Hour: Day of Tx Zero Hour: Day of Tx Zero Hour: Day of Tx Zero Hour: Day of Tx Zero Hour: Day of Tx Zero Hour: Day of Tx Zero Hour: Day of Tx Zero Hour: Day of Tx Zero Hour: Day of Tx Zero Hour: Day of Tx Zero Hour: Day of Tx Zero Hour: Day of Tx Zero Hour: Day of Tx Zero Hour: Day of Tx Zero Hour: Day of Tx Zero Hour: Day of Tx Zero Hour: Day of Tx Zero Hour: Day of Tx Zero Hour: Day of Tx cyanocobalamin (DoT): 1,000 mcg = 1 mL, Injection, IntraMuscular, Day of Tx, Routine, Start date 09/05/24 cyanocobalamin (DoT): 1,000 mcg = 1 mL, Injection, IntraMuscular, Day of Tx, Routine, Start date 09/11/25 cyanocobalamin (DoT): 1,000 mcg = 1 mL, Injection, IntraMuscular, Day of Tx, Routine, Start date 10/03/24 cyanocobalamin (DoT): 1,000 mcg = 1 mL, Injection, IntraMuscular, Day of Tx, Routine, Start date 10/09/25 cyanocobalamin (DoT): 1,000 mcg = 1 mL, Injection, IntraMuscular, Day of Tx, Routine, Start date 10/31/24 cyanocobalamin (DoT): 1,000 mcg = 1 mL, Injection, IntraMuscular, Day of Tx, Routine, Start date 11/06/25 cyanocobalamin (DoT): 1,000 mcg = 1 mL, Injection, IntraMuscular, Day of Tx, Routine, Start date 11/28/24 cyanocobalamin (DoT): 1,000 mcg = 1 mL, Injection, IntraMuscular, Day of Tx, Routine, Start date 12/26/24 cyanocobalamin (DoT): 1,000 mcg = 1 mL, Injection, IntraMuscular, Day of Tx, Routine, Start date 01/02/25 cyanocobalamin (DoT): 1,000 mcg = 1 mL, Injection, IntraMuscular, Day of Tx, Routine, Start date 01/23/25 cyanocobalamin (DoT): 1,000 mcg = 1 mL, Injection, IntraMuscular, Day of Tx, Routine, Start date 01/30/25 cyanocobalamin (DoT): 1,000 mcg = 1 mL, Injection, IntraMuscular, Day of Tx, Routine, Start date 02/20/25 cyanocobalamin (DoT): 1,000 mcg = 1 mL, Injection, IntraMuscular, Day of Tx, Routine, Start date 02/27/25 cyanocobalamin (DoT): 1,000 mcg = 1 mL, Injection, IntraMuscular, Day of Tx, Routine, Start date 03/20/25 cyanocobalamin (DoT): 1,000 mcg = 1 mL, Injection, IntraMuscular, Day of Tx, Routine, Start date 03/27/25 cyanocobalamin (DoT): 1,000 mcg = 1 mL, Injection, IntraMuscular, Day of Tx, Routine, Start date 04/17/25 cyanocobalamin (DoT): 1,000 mcg = 1 mL, Injection, IntraMuscular, Day of Tx, Routine, Start date 04/24/25 cyanocobalamin (DoT): 1,000 mcg = 1 mL, Injection, IntraMuscular, Day of Tx, Routine, Start date 05/15/25 cyanocobalamin (DoT): 1,000 mcg = 1 mL, Injection, IntraMuscular, Day of Tx, Routine, Start date 05/22/25 cyanocobalamin (DoT): 1,000 mcg = 1 mL, Injection, IntraMuscular, Day of Tx, Routine, Start date 06/12/25 cyanocobalamin (DoT): 1,000 mcg = 1 mL, Injection, IntraMuscular, Day of Tx, Routine, Start date 06/19/25 cyanocobalamin (DoT): 1,000 mcg = 1 mL, Injection, IntraMuscular, Day of Tx, Routine, Start date 07/17/25 cyanocobalamin (DoT): 1,000 mcg = 1 mL, Injection, IntraMuscular, Day of Tx, Routine, Start date 08/08/24 cyanocobalamin (DoT): 1,000 mcg = 1 mL, Injection, IntraMuscular, Day of Tx, Routine, Start date 08/14/25 Prescriptions Prescribed B12: B12, See Instructions, 10 packet(s), 3, IntraMuscular, [employer] #72, Supply, 151, cm, 07/11/24 14:31:00 EST, Height/Length Dosing, 69.9, kg, 07/11/24 14:31:00 EST, Weight Dosing B12: B12, See Instructions, 3 kit(s), 4, dispense quantity sufficient for IM B12 injections: 3 mL syringes and 1 inch/23 gauge needles, [employer] #72, Supply, 151, cm, 07/25/24 13:56:00 EST, Height/Length Dosing, 70.3, kg, 07/25/24 13:56:00 ES... Flonase 0.05 mg/inh [place]: 1 spray(s), Nasal, BID, 16 gram, Refill(s) 0, each nostril, [employer] #72, 151, cm, 07/25/24 13:56:00 EST, Height/Length Dosing, 70.3, kg, 07/25/24 13:56:00 EST, Weight Dosing Misc DME Prescription: Misc DME Prescription, (more content not included)... Normal [facility] Comment on above: Result Comment: Elec tronically Signed By: Kvng GUY, Jazlyn Hung\.br\Date and Time Signed: 12/19/24 11:28 EDT Other Comment: Kamilah jiang Attachment - attachment storage system not supported [id number] Can be viewed in source system Missing Attachment - attachment storage system not supported [id number] Can be viewed in source system Missing Attachment - attachment storage system not supported [id number] Can be viewed in source system Missing Attachment - attachment storage system not supported [id number] Can be viewed in source system Missing Attachment - attachment storage system not supported [id number] Can be viewed in source system Missing Attachment - attachment storage system not supported [id number] Can be viewed in source system Missing Attachment - attachment storage system not supported [id number] Can be viewed in source system Missing Attachment - attachment storage system not supported [id number] Can be viewed in source system Missing Attachment - attachment storage system not supported [id number] Can be viewed in source system Ambulatory Visit Summaryon 0 12-06-2024 Ambulatory Visit Summary Ambulatory Visit Summary JOHANNA MACDONALD :1955 Visit Date:12/06/2024 Ambulatory Visit Instructions Your Diagnosis Thrombocytosis Malabsorption of iron Iron deficiency anemia Melena Alkaline phosphatase elevation Fatty liver BMI 31.0-31.9,adult Gastropathy Esophageal dysphagia Your Care Team Attending Physician - Jazlyn Calderon MD Primary Care Physician - Man GUY, Issac Sam This Is Your Medications List Contact prescribing physician if questions or concerns Misc Prescription (B12) Misc Prescription (B12) Misc Prescription (Misc DME Prescription) Misc Prescription (nebulizer supplies) albuterol-ipratropium (albuterol-ipratropium Inh Ana Cristina 3 mL UD) amlodipine (amLODIPine 10 mg Tab) aspirin (aspirin 81 mg Oral EC Tab) atorvastatin (atorvastatin 80 mg Tab) cyanocobalamin (cyanocobalamin 1000 mcg/mL Inj) esomeprazole (esomeprazole 40 mg Cap-EC) fluticasone nasal (Flonase 0.05 mg/inh [place]) isosorbide mononitrate (isosorbide mononitrate 30 mg ER Tab) nitroglycerin sacubitril-valsartan (Entresto 24 mg-26 mg oral tablet) Procedures Performed Cardiac catheterization (02/17/2023), Abdominal hernia, Cardiac catheter, Cholecystectomy, Colonoscopy, EGD (esophagogastroduodenos copy) and closure of duodenal fistula, Exploratory laparotomy, MELVIN BSO - Total abdominal hysterectomy and bilateral salpingo-oophorectomy. Discharge Vitals Heart Rate (Peripheral) 66 Blood Pressure 117/65 Height 151 cm Height 59 in Weight 73.4 kg Weight 161.819 lb BMI 32.19 What to do next Scheduled Follow-Up Appointments Wednesday 2:00 PM EDT With: Where: [facility] Wednesday 1:40 PM EDT With: Man GUY, Issac Sam Where: [address] [address]- Wednesday 2:00 PM EDT With: Where: [facility] Wednesday 2:30 PM EDT With: Where: [address] [address]- Wednesday 2:00 PM EDT With: Where: [facility] Wednesday 2:00 PM EDT With: Where: [facility] Wednesday 2:00 PM EDT With: Where: [facility] Wednesday 1:00 PM EDT With: Marta GUY, Marianne Carney Where: [facility] Wednesday 2:00 PM EDT With: Where: [facility] Wednesday 2:00 PM EST With: Where: [facility] Wednesday 2:00 PM EST With: Where: [facility] Wednesday 2:00 PM EST With: Where: [facility] Wednesday2025 2:00 PM EST With: Where: [facility] Wednesday2025 2:00 PM EST With: Where: [facility] Wednesday2025 2:00 PM EDT With: Where: [facility] You Need to Complete the Following Acute Hepatitis A B C Panel, Blood, Routine collect, 12/06/24, Order for future visit, Lab Collect, Thrombocytosis Malabsorption of iron Iron deficiency anemia Melena, Required & Missing, Print Label By Order Location Alkaline Phosphatase Isoenzymes, Blood, Routine collect, 12/06/24, Order for future visit, Lab Collect, Thrombocytosis Malabsorption of iron Iron deficiency anemia Melena, Not Required, Print Label By Order Location [id number]-[id number], Blood, Routine collect, 12/06/24, Order for future visit, Lab Collect, Thrombocytosis Malabsorption of iron Iron deficiency anemia Melena, Not Required, Print Label By Order Location NARCISA w/Reflex if POS, Blood, Routine collect, 12/06/24, Order for future visit, Lab Collect, Thrombocytosis Malabsorption of iron Iron deficiency anemia Melena, Not Required, Print Label By Order Location Antimitochondrial Antibody, Quantitative, Blood, Routine collect, 12/06/24, Order for future visit, Lab Collect, Thrombocytosis Malabsorption of iron Iron deficiency anemia Melena, Not Required, Print Label By Order Location Ceruloplasmin, Blood, Routine collect, 12/06/24, Order for future visit, Lab Collect, Thrombocytosis Malabsorption of iron Iron deficiency anemia Melena, Not Required, Print Label By Order Location Hepatitis A Virus (HAV) Antibody, Total, Blood, Routine collect, 12/06/24, Order for future visit, Lab Collect, Thrombocytosis Malabsorption of iron Iron deficiency anemia Melena, Not Required, Print Label By Order Location IgG, Quant., Blood, Routine collect, 12/06/24, Order for future visit, Lab Collect, Thrombocytosis Malabsorption of iron Iron deficiency anemia Melena, Not Required, Print Label By Order Location Smooth Muscle Antibody Screen, Blood, Routine collect, 12/06/24, Order for future visit, Lab Collect, Thrombocytosis Malabsorption of iron Iron deficiency anemia Melena, Not Required, Print Label By Order Location Vitamin D 25 Hydroxy, Blood, Routine collect, 12/06/24, Order for future visit, Lab Collect, Thrombocytosis Malabsorption of i (more content not included)... Normal [facility] Ambulatory Visit Summary Ambulatory Visit Summary JOHANNA MACDONALD :1955 Visit Date:12/06/2024 Ambulatory Visit Instructions Your Diagnosis Thrombocytosis Malabsorption of iron Iron deficiency anemia Melena Alkaline phosphatase elevation Fatty liver BMI 31.0-31.9,adult Gastropathy Esophageal dysphagia Your Care Team Attending Physician - Kvng GUY, Jazlyn Hung Primary Care Physician - Issac Conway MD This Is Your Medications List Contact prescribing physician if questions or concerns Misc Prescription (B12) Misc Prescription (B12) Misc Prescription (Misc DME Prescription) Misc Prescription (nebulizer supplies) albuterol-ipratropium (albuterol-ipratropium Inh Ana Cristina 3 mL UD) amlodipine (amLODIPine 10 mg Tab) aspirin (aspirin 81 mg Oral EC Tab) atorvastatin (atorvastatin 80 mg Tab) cyanocobalamin (cyanocobalamin 1000 mcg/mL Inj) esomeprazole (esomeprazole 40 mg Cap-EC) fluticasone nasal (Flonase 0.05 mg/inh [place]) isosorbide mononitrate (isosorbide mononitrate 30 mg ER Tab) nitroglycerin sacubitril-valsartan (Entresto 24 mg-26 mg oral tablet) Procedures Performed Cardiac catheterization (02/17/2023), Abdominal hernia, Cardiac catheter, Cholecystectomy, Colonoscopy, EGD (esophagogastroduodenos copy) and closure of duodenal fistula, Exploratory laparotomy, MELVIN BSO - Total abdominal hysterectomy and bilateral salpingo-oophorectomy. Discharge Vitals Heart Rate (Peripheral) 66 Blood Pressure 117/65 Height 151 cm Height 59 in Weight 73.4 kg Weight 161.819 lb BMI 32.19 What to do next Scheduled Follow-Up Appointments Wednesday 2:00 PM EDT With: Where: [facility] Wednesday 1:40 PM EDT With: Issac Conway MD Where: [address] [address]- Wednesday 2:00 PM EDT With: Where: [facility] Wednesday 2:30 PM EDT With: Where: [address] [address]- Wednesday 2:00 PM EDT With: Where: [facility] Wednesday 2:00 PM EDT With: Where: [facility] Wednesday 2:00 PM EDT With: Where: [facility] Wednesday, 2024 1:00 PM EDT With: Marta GUY, Marianne Carney Where: [facility] Wednesday 2:00 PM EDT With: Where: [facility] Wednesday 2:00 PM EST With: Where: [facility] Wednesday 2:00 PM EST With: Where: [facility] Wednesday 2:00 PM EST With: Where: [facility] Wednesday2025 2:00 PM EST With: Where: [facility] Wednesday2025 2:00 PM EST With: Where: [facility] Wednesday2025 2:00 PM EDT With: Where: [facility] You Need to Complete the Following Acute Hepatitis A B C Panel, Blood, Routine collect, 12/06/24, Order for future visit, Lab Collect, Thrombocytosis Malabsorption of iron Iron deficiency anemia Melena, Required & Missing, Print Label By Order Location Alkaline Phosphatase Isoenzymes, Blood, Routine collect, 12/06/24, Order for future visit, Lab Collect, Thrombocytosis Malabsorption of iron Iron deficiency anemia Melena, Not Required, Print Label By Order Location [id number], Blood, Routine collect, 12/06/24, Order for future visit, Lab Collect, Thrombocytosis Malabsorption of iron Iron deficiency anemia Melena, Not Required, Print Label By Order Location NARCISA w/Reflex if POS, Blood, Routine collect, 12/06/24, Order for future visit, Lab Collect, Thrombocytosis Malabsorption of iron Iron deficiency anemia Melena, Not Required, Print Label By Order Location Antimitochondrial Antibody, Quantitative, Blood, Routine collect, 12/06/24, Order for future visit, Lab Collect, Thrombocytosis Malabsorption of iron Iron deficiency anemia Melena, Not Required, Print Label By Order Location Ceruloplasmin, Blood, Routine collect, 12/06/24, Order for future visit, Lab Collect, Thrombocytosis Malabsorption of iron Iron deficiency anemia Melena, Not Required, Print Label By Order Location Hepatitis A Virus (HAV) Antibody, Total, Blood, Routine collect, 12/06/24, Order for future visit, Lab Collect, Thrombocytosis Malabsorption of iron Iron deficiency anemia Melena, Not Required, Print Label By Order Location IgG, Quant., Blood, Routine collect, 12/06/24, Order for future visit, Lab Collect, Thrombocytosis Malabsorption of iron Iron deficiency anemia Melena, Not Required, Print Label By Order Location Smooth Muscle Antibody Screen, Blood, Routine collect, 12/06/24, Order for future visit, Lab Collect, Thrombocytosis Malabsorption of iron Iron deficiency anemia Melena, Not Required, Print Label By Order Location Vitamin D 25 Hydroxy, Blood, Routine collect, 12/06/24, Order for future visit, Lab Collect, Thrombocytosis Malabsorption of i (more content not included)... Normal [facility] Gastroenterology Office/Clin ic Noteon 12-06-2024 Gastroenterology Office/Clinic Note Gastroenterology Office/Clinic Note Chief Complaint Anemia, barretts, heartburn, intermittent dark stools, trouble swallowing HPI Staff NEW, 69 year old female who presents today for a referral by Oncology for complaints of anemia, thrombocytopenia and melena Colonoscopy and EGD- orders placed in chart Morales's esophagus, trouble swallowing and heartburn. Denies Blood Thinners Denies GLP-1 Agonists Iron deficiency anemia- tried oral iron and Venofer IV CT abd/pelv 11/20/24 IMPRESSION: No acute process in the abdomen/pelvis. EGD @ [place] 06/15/22 POSTOPERATIVE DIAGNOSIS: 1. Antral gastritis. 2. Morales's esophagus. 3. Proximal gastric AVM. Colonoscopy @ [place] 06/15/22 POSTOPERATIVE DIAGNOSIS: Blood loss anemia. -Poor prep Laboratory Results CBC CMP Basophil Absolute: 0 E9/L (10/31/24) A/G Ratio: 1.7 (03/20/24) Basophil Auto: 0.4 % (10/31/24) AGAP: 13 mEq/L (03/20/24) Eos Absolute: 0.3 E9/L (10/31/24) Albumin Lvl: 4.4 gm/dL (03/20/24) Eos Auto: 2.9 % (10/31/24) Alk Phos: 111 Int._Unit/L High (03/20/24) Hct: 37.9 % (10/31/24) ALT: 12 Int._Unit/L (03/20/24) HGB: 13 gm/dL (10/31/24) AST: 10 Int._Unit/L (03/20/24) Lymph Absolute: 2.3 E9/L (10/31/24) Bili Total: 0.3 mg/dL (03/20/24) Lymph Auto: 25.7 % (10/31/24) BUN: 9 mg/dL (03/20/24) MCH: 29.7 pg (10/31/24) BUN/Creat Ratio: 13 (03/20/24) MCHC: 34.3 gm/dL (10/31/24) Calcium Lvl: 9.4 mg/dL (03/20/24) MCV: 86.6 fL (10/31/24) Chloride: 102 mmol/L (03/20/24) Latimer Absolute: 0.7 E9/L (10/31/24) CO2: 24 mmol/L (03/20/24) Latimer Auto: 8.3 % (10/31/24) Creatinine: 0.5 mg/dL (11/13/24) MPV: 7.5 fL (10/31/24) Globulin: 2.6 gm/dL (03/20/24) Neutro Absolute: 5.5 E9/L (10/31/24) Glucose Lvl: 279 mg/dL High (03/20/24) Neutro Auto: 62.7 % (10/31/24) Potassium Lvl: 3.9 mmol/L (03/20/24) Platelet: 490 E9/L (10/31/24) Sodium Lvl: 135 mmol/L (03/20/24) RBC: 4.4 E12/L (10/31/24) Total Protein: 7 gm/dL (03/20/24) RDW: 13.1 % (10/31/24) WBC: 8.8 E9/L (10/31/24) Liver Studies Ferritin Lvl: 96 ng/mL (10/31/24) Iron: 54 mcg/dL (10/31/24) TIBC: 319 mcg/dL (10/31/24) History of Present Illness I have reviewed HPI staff note, most recent labs and imaging, I agree with the above documentation with the following additions/exceptions : PT with dysphagia - no hx of dilation benigno when she takes medications pt drinks lots of water with meds hx of AVM on EGD and poor prep in 2021 on iron infusion was told to have fatty liver in the past Review of Systems PHQ Score Initial Depression Screen Score: 0 SCORE All systems reviewed, negative except as mentioned above Physical Exam Vitals & Measurements HR: 66(Peripheral) BP: 117/65 HT: 151 cm HT: 59 in WT: 73.4 kg WT: 161.819 lb BMI: 32.19 General: alert, no acute distress HEENT: atraumatic normocephalic Cardiovascular: regular rate and rhythm, normal peripheral perfusion Respiratory: Lungs CTA, respirations non labored Extremities: no deformity, no trauma Abdomen: Benign, soft, nontender nondistended Assessment/Plan 1. Thrombocytosis (D75.839: Thrombocytosis, unspecified) Ordered: Acute Hepatitis A B C Panel Alkaline Phosphatase Isoenzymes Vgoib-3-Qxytegjafxu NARCISA w/Reflex if POS Antimitochondrial Antibody, Quantitative Ceruloplasmin Colonoscopy (Hospital Procedure) Current tobacco smoker 1034F EGD Endoscopy (Hospital Procedure) Hepatitis A Virus (HAV) Antibody, Total IgG, Quant. Most recent diastolic blood pressure <80 mm Hg 3078F Smooth Muscle Antibody Screen Systolic BP <130 mm Hg (Most Recent) 3074F Vitamin D 25 Hydroxy 2. Malabsorption of iron (K90.9: Intestinal malabsorption, unspecified) Ordered: Acute Hepatitis A B C Panel Alkaline Phosphatase Isoenzymes Rdibq-2-Mnwzjlmapvg NARCISA w/Reflex if POS Antimitochondrial Antibody, Quantitative Ceruloplasmin Colonoscopy (Hospital Procedure) Current tobacco smoker 1034F EGD Endoscopy (Hospital Procedure) Hepatitis A Virus (HAV) Antibody, Total IgG, Quant. Most recent diastolic blood pressure <80 mm Hg 3078F Smooth Muscle Antibody Screen Systolic BP <130 mm Hg (Most Recent) 3074F Vitamin D 25 Hydroxy 3. Iron deficiency anemia (D50.9: Iron deficiency anemia, unspecified) Ordered: Acute Hepatitis A B C Panel Alkaline Phosphatase Isoenzymes Pssrb-0-Buobzkxxcmc NARCISA w/Reflex if POS Antimitochondrial Antibody, Quantitative Ceruloplasmin Colonoscopy (Hospital Procedure) Current tobacco smoker 1034F EGD Endoscopy (Hospital Procedure) Hepatitis A Virus (HAV) Antibody, Total IgG, Quant. Most recent diastolic blood pressure <80 mm Hg 3078F Smooth Muscle Antibody Screen Systolic BP <130 mm Hg (Most Recent) 3074F Vitamin D 25 Hydroxy 4. Melena (K92.1: Melena) Ordered: Acute Hepatitis A B C Panel Alkaline Phosphatase Isoenzymes Bhtef-5-Akannfvpfkg NARCISA w/Reflex if POS Antimitochondrial Antibody, Quantitative Ceruloplasmin Colon (more content not included)... Normal [facility] Comment on above: Result Comment: Elec tronically Signed By: Kvng GUY, Jazlyn Hung\.br\Date and Time Signed: 12/06/24 12:[address] Abdomen/Pelvis w/ Contras ton 11-20-2024 CT Abdomen/Pelvis w/ Contrast Exam Date/Time: 11/20/2024 12:07 EDT Reason for Exam: K92.1;Pain Report IMPRESSION: No acute process in the abdomen/pelvis. HISTORY: Abdominal pain. TECHNIQUE: CT of the abdomen and pelvis was performed using standard technique with intravenous contrast, scanning from just above the dome of the diaphragm to the symphysis pubis. Including delayed images through the kidneys. Including sagittal and coronal reconstructions on both phases. Unless otherwise stated, incidental findings identified in this report do not require routine follow-up imaging. All CT scans at this facility use dose modulation, iterative reconstruction, and/or weight based dosing when appropriate to reduce radiation dose to as low as reasonably achievable. COMPARISON: None. RESULT: Liver: No mass or lesion. Biliary: Cholecystectomy. No bile duct dilation. Pancreas: No mass or duct dilation. Spleen: No mass or splenomegaly. Adrenals: No mass. Kidneys: No hydronephrosis. No distinct calculi within limits of contrast enhanced study. No suspicious renal lesions. Delayed phase images unremarkable. GI tract: No small bowel dilation. Areas of under distention versus wall thickening involving the sigmoid and rectal regions. Lymph nodes: No abdominal or pelvic lymphadenopathy. Mesentery/Peritoneum/Re troperitoneum: No ascites or mass. Vasculature: Diffuse calcifications of the aorta, without aneurysm. Pelvis: Surgical clips within both inguinal regions. Hysterectomy. Bladder partially decompressed. Bones: No acute osseous findings. Degenerative changes. DISH. Soft tissues: Diffuse ventral stranding, likely postsurgical. Prominent subcutaneous Report vessels. Lower thorax: Visualized lung bases unremarkable. Coronary calcifications. Tech Comments: GFR (mL/min/1/73m2) >60 Contrast: Isovue 300 Contrast amount in ml's: 100.00 Rectal Contrast Given? No Oral contrast amount in ml's: 900.00 Ordering Provider: Marianne Lozano FINAL REPORT Dictated: 11/20/2024 12:42 pm Joshua Horner MD Signed (Electronic Signature): 11/20/2024 12:42 pm Signed by: Joshua Horner MD Transcribed by: LICO Technologist: JEANNIE Barclay [facility] Office Visiton 11-15-2024 Follow-up visit [id number] Joellen Macdonald 1955 F Date Provider Department Center 11/15/2024 AC ARAYA ARIS [place] Family History Problem Relation Age of Onset Heart disease Mother Cancer Father Coronary artery disease Brother Other Brother Family Status - Relation Status Age at Mother Father Brother Alive Level of Service:28767 DE OFFICE/OUTPATIENT ESTABLISHED LOW MDM 20 MIN Normal [facility] CHEMISTRYOrdered By: SYSTEM SYSTEM on 11-13-2024 Creatinine [Mass/Vol] 0.5 mg/dL Normal 0.5 - 1.3 mg/dL Remisol Chem eGFR 101 mL/min/1.73 m2 Normal >=59mL/mi n/1.73 m2 Remisol Chem Creatinineon 11-13-2024 Creatinine [Mass/Vol] 0.5 mg/dL Normal 0.5-1.3 [facility] Comment on above: Performed By: #### 2 [id number] #### [facility] [address] [place] [address] MICRO OTHER TESTSOrdered By: Yelitza Montano on 11-13-2024 Occult blood panel (Stl) Negative (11/13/24 6:00 AM) Normal Negative [facility] Man Sero Stl [place] 11-13-2024 Occult blood panel (Stl) Negative Normal Negative [facility] Comment on above: Performed By: #### 2 [id number] #### [facility] [address] [place] [address] eGFRon 11-13-2024 eGFR 101 mL/min/1.73 m2 Normal >=59 [facility] Comment on above: Performed By: #### 1 [id number] #### [facility] [address] [place] [address] Ambulatory Visit Summaryon 0 10-31-2024 Ambulatory Visit Summary Ambulatory Visit Summary JOHANNA MACDONALD :1955 Visit Date:10/31/2024 Ambulatory Visit Instructions Your Diagnosis BMI 31.0-31.9,adult Obesity (BMI 30-39.9) Tobacco use COPD without exacerbation Controlled type 2 diabetes mellitus without complication, without long-term current use of insulin Heart failure Bronchiectasis Chronic respiratory failure with hypoxia Pulmonary hypertension Rib pain on right side Your Care Team Attending Physician - Issac Conway MD Primary Care Physician - Issac Conway MD This Is Your Medications List Misc Prescription (B12) Misc Prescription (B12) Misc Prescription (Misc DME Prescription) Misc Prescription (nebulizer supplies) albuterol-ipratropium (albuterol-ipratropium Inh Ana Cristina 3 mL UD) amlodipine (amLODIPine 10 mg Tab) aspirin (aspirin 81 mg Oral EC Tab) atorvastatin (atorvastatin 80 mg Tab) cyanocobalamin (cyanocobalamin 1000 mcg/mL Inj) esomeprazole (esomeprazole 40 mg Cap-EC) fluticasone nasal (Flonase 0.05 mg/inh [place]) isosorbide mononitrate (isosorbide mononitrate 30 mg ER Tab) nitroglycerin sacubitril-valsartan (Entresto 24 mg-26 mg oral tablet) Procedures Performed Cardiac catheterization (02/17/2023), Abdominal hernia, Cardiac catheter, Cholecystectomy, Colonoscopy, EGD (esophagogastroduodenos copy) and closure of duodenal fistula, Exploratory laparotomy, MELVIN BSO - Total abdominal hysterectomy and bilateral salpingo-oophorectomy. Discharge Vitals Temperature (Tympanic) 36.8 ???C Heart Rate (Peripheral) 3 Respiratory Rate 16 Blood Pressure 122/74 Height 151 cm Height 59 in Weight 72.9 kg Weight 160.717 lb BMI 31.97 What to do next Scheduled Follow-Up Appointments Wednesday 2:00 PM EDT With: Marta GUY, Marianne Carney Where: [facility] Wednesday 1:40 PM EDT With: Man GUY, Issac Sam Where: [address] [id number]- Wednesday 2:30 PM EDT With: Where: [address] [address]- You Need to Complete the Following HgbA1c, Blood, Routine collect, 10/31/24, Order for future visit, Lab Collect, BMI 31.0-31.9,adult Obesity (BMI 30-39.9) Tobacco use COPD without exacerbation Controlled type 2 diabetes mellitus without complication, without long-term current use of i... XR Chest 2 Views, 10/31/24, Routine, Order for future visit, Transport Mode: Ambulatory, Reason: Chest pain, No, Rib pain on right side, pp_set_radiology_subspe cialty, Not Required, [facility] Medications What How Much When Why Instructions Unchanged albuterol-ipratropium (albuterol-ipratropium Inh Ana Cristina 3 mL UD) 3 Milliliter Nebulized inhalation (aerosol) 4 times a day Unchanged amlodipine (amLODIPine 10 mg Tab) TAKE 1 TABLET BY MOUTH DAILY Unchanged aspirin (aspirin 81 mg Oral EC Tab) 1 Tablets By Mouth Every day Unchanged atorvastatin (atorvastatin 80 mg Tab) TAKE 1 TABLET BY MOUTH DAILY Unchanged cyanocobalamin (cyanocobalamin 1000 mcg/ mL Inj) See instructions B12 deficiency 1 mL IntraMuscular every other week Unchanged esomeprazole (esomeprazole 40 mg Cap-EC) 1 Capsules By Mouth 2 times a day TAKE 1 CAPSULE BY MOUTH TWICE DAILY Covering for [place] Unchanged fluticasone nasal (Flonase 0.05 mg/ inh [place]) 1 Sprays Nasal Inhalation 2 times a day each nostril Unchanged isosorbide mononitrate (isosorbide mononitrate 30 mg ER Tab) TAKE 1 TABLET BY MOUTH DAILY Unchanged Misc Prescription (B12) See instructions B12 deficiency IntraMuscular Unchanged Misc Prescription (B12) See instructions B12 deficiency dispense quantity sufficient for IM B12 injections: 3 mL syringes and 1 inch/ 23 gauge needles Unchanged Misc Prescription (Misc DME Prescription) See instructions wear O2 as directed Unchanged Misc Prescription (nebulizer supplies) See instructions nebulizer supplies- tubing and cup Unchanged nitroglycerin See instructions 0.4 mg SubLingual as needed for chest pain Unchanged sacubitril-valsartan (Entresto 24 mg-26 mg oral tablet) 1 Tablets By Mouth 2 times a day Allergies Biaxin (Unknown) Cipro (Unknown) Keflex (Unknown) amoxicillin (Unknown) atenolol (Unknown) doxycycline (Unknown) sulfa drugs (Unknown) Problems Ongoing - Any problem that you are currently receiving treatment for. Abdominal pain, right lower quadrant Arthritis Asthma B12 deficiency Blister of hand BMI 30.0-30.9,adult BMI 31.0-31.9,adult Bronchiectasis Bronchitis Chronic respiratory failure with hypoxia Controlled type 2 diabetes mellitus without complication, without long-term current use of insulin COPD without exacerbation Cough Fatigue GERD with esophagitis Heart failure History of tobacco use Hospital discharge follow-up Incarcerated ventral hernia Inguinal hernia In (more content not included)... Normal [facility] CBC w/ Auto Diffon 5 Basophils/100 WBC (Bld) 0.4 % Normal 0.0-2.0 [facility] Comment on above: Performed By: #### 2 [id number] #### [facility] [address] [place] [address] Basophils/Leukocyte s Auto (Bld) [Pure # fraction] 0.0 E9/L Normal 0.0-0.2 [facility] Comment on above: Performed By: #### 2 [id number] #### [facility] [address] [place] [address] Eosinophils (Bld) [#/Vol] 0.3 E9/L Normal 0.0-0.5 [facility] Comment on above: Performed By: #### 2 [id number] #### [facility] [address] [place] [address] Eosinophils/100 WBC (Bld) 2.9 % Normal 0.0-8.0 [facility] Comment on above: Performed By: #### 2 [id number] #### [facility] [address] [place] [address] Erythrocyte distribution width (RBC) [Ratio] 13.1 % Normal 10.9-14.2 [facility] Comment on above: Performed By: #### 2 [id number] #### [facility] [address] [place] [address] Hematocrit (Bld) [Volume fraction] 37.9 % Normal 34.0-46.0 [facility] Comment on above: Performed By: #### 2 [id number] #### [facility] [address] [place] [address] Hemoglobin (Bld) [Mass/Vol] 13.0 g/dL Normal 12.0-16.0 [facility] Comment on above: Performed By: #### 2 [id number] #### [facility] [address] [place] [address] Lymphocytes (Bld) [#/Vol] 2.3 E9/L Normal 1.0-4.0 [facility] Comment on above: Performed By: #### 2 [id number] #### [facility] [address] [place] [address] Lymphocytes/100 WBC (Bld) 25.7 % Normal 14.0-50.0 [facility] Comment on above: Performed By: #### 2 [id number] #### [facility] [address] [place] [address] MCH (RBC) [Entitic mass] 29.7 pg Normal 27.0-34.0 [facility] Comment on above: Performed By: #### 2 [id number] #### [facility] [address] [place] [address] [place] [address] MCHC (RBC) [Mass/Vol] 34.3 g/dL Normal 31.4-36.0 [facility] Comment on above: Performed By: #### 2 [id number] #### [facility] [address] [place] [address] MCV (RBC) [Entitic vol] 86.6 fL Normal 80.0-100.0 [facility] Comment on above: Performed By: #### 2 [id number] #### [facility] [address] [place] [address] Monocytes (Bld) [#/Vol] 0.7 E9/L Normal 0.2-1.0 [facility] Comment on above: Performed By: #### 2 [id number] #### [facility] [address] [place] [address] Neutrophils (Bld) [#/Vol] 5.5 E9/L Normal 2.0-7.5 [facility] Comment on above: Performed By: #### 2 [id number] #### [facility] [address] [place] [address] Neutrophils/100 WBC (Bld) 62.7 % Normal 36.0-75.0 [facility] Comment on above: Performed By: #### 2 [id number] #### [facility] [address] [place] [address] Platelet mean volume (Bld) [Entitic vol] 7.5 fL Normal 6.4-10.8 [facility] Comment on above: Performed By: #### 2 [id number] #### [facility] [address] [place] [address] Platelets (Bld) [#/Vol] 490.0 E9/L Normal 150.0-500.0 [facility] Comment on above: Performed By: #### 2 [id number] #### [facility] [address] [place] [address] RBC (Bld) [#/Vol] 4.4 E12/L Normal 4.3-5.9 [facility] Comment on above: Performed By: #### 2 [id number] #### [facility] [address] [place] [address] WBC corrected for nucl RBC Auto (Bld) [#/Vol] 8.8 E9/L Normal 4.0-11.0 [facility] Comment on above: Performed By: #### 2 [id number] #### [facility] [address] [place] [address] CHEMISTRYOrdered By: SYSTEM SYSTEM on 10-31-2024 Cobalamin (Vitamin B12) [Mass/Vol] 318 pg/mL Normal 50 - 1500 pg/mL Remisol Chem Ferritin [Mass/Vol] 96 ng/mL Normal 11 - 307 ng/mL R emisol Chem Folate [Mass/Vol] 16.2 ng/mL Normal >=6.7ng/mL Remisol Chem Iron [Mass/Vol] 54 ug/dL Normal 35 - 153 mcg/dL Brad ana cristina Chem Iron binding capacity [Mass/Vol] 319 ug/dL Normal 250 - 400 mcg/dL Remisol Natalie m Iron saturation [Mass fraction] 17 % Low 20 - 50 % Remisol Chem Transferrin [Mass/Vol] 228 mg/dL Normal 200 - 370 mg/dL Remisol Chem CHEMISTRYOrdered By: Tammi Mckenzie on 10-31-2024 HbA1c (Bld) [Mass fraction] 6.2 % High <=5.9% [facility] Chem[employer] Family Medicine Office/Clini c Noteon 10-31-2024 Family Medicine Office/Clinic Note Family Medicine Office/Clinic Note Chief Complaint 3m follow up The patient presents with worsening shortness of breath and rib pain. HPI Staff Pt presents today due to Rt sided pain. Thinks it feels like a cracked rib. Did go to urgent care last month due to problems breathing. Albuterol not helping. No CXR done. Pt thinks she needs one. Unsure if she needs refills, states she will call us if she does. History of Present Illness The patient is a 69-year-old female presenting with worsening respiratory symptoms. She reports a significant increase in shortness of breath, insufficiently managed by her existing inhalers (ectotropia and albuterol). This issue's commencement remains somewhat vague, yet she acknowledges its persistence past her last clinical evaluation. Despite rib pain, no x-ray has been conducted to elucidate the cause, although there is talk of a potential crack captain cannery tender injury or growth. The patient's ongoing tobacco use, though reduced, likely worsens her pulmonary status, intertwined with her chronic pulmonary conditions and required nocturnal oxygen supplementation. Previously suggested possible pneumonia at an urgent care visit remains unsubstantiated due to unavailable diagnostic imaging. - Tobacco cessation counseling initiated, with noted reduction to one and a half packs per day. - Continued management of controlled type 2 diabetes mellitus. - Ongoing use of supplemental oxygen at night for chronic respiratory failure with hypoxia. - Monitoring for exacerbations of pulmonary hypertension and heart failure. Review of Systems PHQ Score Initial Depression Screen Score: 0 SCORE Physical Exam Vitals & Measurements T: 36.8 ???C(Tympanic) HR: 3(Peripheral) RR: 16 BP: 122/74 SpO2: 97% HT: 59 in HT: 151 cm WT: 72.9 kg WT: 160.717 lb BMI: 31.97 General: alert, no acute distress ENMT: oral mucosa moist Cardiovascular: Regular rate and rhythm, normal peripheral perfusion Respiratory: Lungs clear to auscultation, respirations non labored, but patient reports shortness of breath and difficulty breathing Extremities: no deformity, no trauma Neurological: oriented x 4, level of consciousness appropriate for age, CN II-XII intact, motor strength equal & normal bilaterally, speech normal Abdomen: Soft, Non-tender, Non-distended, + Bowel sounds Assessment/Plan 1. BMI 31.0-31.9,adult (Z68.31: Body mass index [BMI] 31.0-31.9, adult) BMI education added Ordered: HgbA1c 2. Obesity (BMI 30-39.9) (E66.9: Obesity, unspecified) Diet exercise advised Ordered: HgbA1c 3. Tobacco use (Z72.0: Tobacco use) Encourage further reduction in smoking with supportive strategies and potential consideration of cessation pharmacotherapy. Ordered: HgbA1c 4. COPD without exacerbation (J44.9: Chronic obstructive pulmonary disease, unspecified) To address her worsening dyspnea, initiate a short course of systemic steroids and prescribe azithromycin to prevent potential bacterial exacerbation. Order a chest x-ray to rule out pneumonia or other pulmonary causes of exacerbation. Ordered: HgbA1c 5. Controlled type 2 diabetes mellitus without complication, without long-term current use of insulin (E11.9: Type 2 diabetes mellitus without complications) Will check an A1c today. Patient does not check blood sugars at home. Patient states she does not know what her blood sugars been running. Ordered: HgbA1c 6. Heart failure (I50.42: Chronic combined systolic (congestive) and diastolic (congestive) heart failure) Maintain heart failure medical therapy, closely monitoring respiratory and fluid status, coordinating management with skidder driver as appropriate. Ordered: HgbA1c 7. Bronchiectasis (J47.9: Bronchiectasis, uncomplicated) Patient has a wet cough today. Encouraged the patient to follow-up with pulm. Will do azithromycin and a steroid as the patient's been having some shortness of breath. Concerns that this may be a start of a COPD exacerbation. Maybe it caused from having fallen and having rib pain and not being able to take a deep inspiration. So we will do the steroids and azithromycin. Ordered: HgbA1c 8. Chronic respiratory failure with hypoxia (J96.11: Chronic respiratory failure with hypoxia) Continue prescribed nocturnal oxygen supplementation. Monitor oxygen saturations closely, adjusting therapy as necessary, with reinforced follow-up plans. Ordered: HgbA1c 9. Pulmonary hypertension (I27.20: Pulmonary hypertension, unspecified) Follow-up with pulm Ordered: HgbA1c 10. Rib pain on right side (R07.81: Pleurodynia) X-ray ordered Ordered: HgbA1c XR Chest 2 Views Orders: azithromycin, = 1 packet(s), Oral, As Directed, as directed on package labeling, X 5 day(s), # 6 tab(s), Refills(s) 0, Pharmacy: [facility], 151, cm, 10/31/24 13:13:00 EDT, Height/Length Dosing, 72.9, kg, 10/31/24 13:13:00 EDT, Weight Dosing methylPREDNISolone, = 1 packet(s), Oral, As (more content not included)... Normal [facility] Comment on above: Result Comment: Elec tronically Signed By: Man GUY, Issac Sam\.br\Date and Time Signed: 10/31/24 13:43 EDT Ferritinon 10-31-2024 Ferritin [Mass/Vol] 96 ng/mL Normal 11-307 [facility] Comment on above: Performed By: #### 2 [id number] #### [facility] [address] [place] [address] Folateon 10-31-2024 Folate [Mass/Vol] 16.2 ng/mL Normal >=6.7 [facility] Comment on above: Performed By: #### 2 [id number] #### [facility] [address] [place] [address] HEMATOLOGYOrdered By: SYSTEM SYSTEM on 10-31-2024 Basophils/100 WBC (Bld) 0.4 % Normal 0.0 - 2.0 % Remisol Heme Basophils/Leukocyte s Auto (Bld) [Pure # fraction] 0.0 E9/L Normal 0.0 - 0.2 E9/L Remisol Heme Eosinophils (Bld) [#/Vol] 0.3 E9/L Normal 0.0 - 0.5 E9/L Remisol Heme Eosinophils/100 WBC (Bld) 2.9 % Normal 0.0 - 8.0 % Remisol Heme Erythrocyte distribution width (RBC) [Ratio] 13.1 % Normal 10.9 - 14.2 % Remisol Heme Hematocrit (Bld) [Volume fraction] 37.9 % Normal 34.0 - 46.0 % Remisol Heme Hemoglobin (Bld) [Mass/Vol] 13.0 g/dL Normal 12.0 - 16.0 gm/dL Remisol Heme Lymphocytes (Bld) [#/Vol] 2.3 E9/L Normal 1.0 - 4.0 E9/L Remisol Heme Lymphocytes/100 WBC (Bld) 25.7 % Normal 14.0 - 50.0 % Remisol Heme MCH (RBC) [Entitic mass] 29.7 pg Normal 27.0 - 34.0 pg Remisol Heme MCHC (RBC) [Mass/Vol] 34.3 g/dL Normal 31.4 - 36.0 gm/dL Remisol Heme MCV (RBC) [Entitic vol] 86.6 fL Normal 80.0 - 100.0 fL Remisol Heme Monocytes (Bld) [#/Vol] 0.7 E9/L Normal 0.2 - 1.0 E9/L Remisol Heme Monocytes/100 WBC (Bld) 8.3 % Normal 4.0 - 14.0 % Remisol Heme Neutrophils (Bld) [#/Vol] 5.5 E9/L Normal 2.0 - 7.5 E9/L Remisol Heme Neutrophils/100 WBC (Bld) 62.7 % Normal 36.0 - 75.0 % Remisol Heme Platelet mean volume (Bld) [Entitic vol] 7.5 fL Normal 6.4 - 10.8 fL Remisol Heme Platelets (Bld) [#/Vol] 490.0 E9/L Normal 150.0 - 500.0 E9/L Remisol Heme RBC (Bld) [#/Vol] 4.4 E12/L Normal 4.3 - 5.9 E12/L Re misol Heme WBC corrected for nucl RBC Auto (Bld) [#/Vol] 8.8 E9/L Normal 4.0 - 11.0 E9/L Remisol Heme AinY5htc 10-31-2024 HbA1c (Bld) [Mass fraction] 6.2 % High <=5.9 [facility] Comment on above: Performed By: #### [id number] #### [facility] [address] [place] [address] Ironon 10-31-2024 Iron [Mass/Vol] 54 microgram/dL Normal 35-153 [facility] Comment on above: Performed By: #### 2 [id number] #### [facility] [address] [place] [address] Iron Saturationon 10-31-2024 Iron binding capacity [Mass/Vol] 319 microgram/dL Normal 250-400 [facility] Comment on above: Performed By: #### 2 [id number] #### [facility] [address] [place] [address] Iron saturation [Mass fraction] 17 % Low 20-50 [facility] Comment on above: Performed By: #### 2 [id number] #### [facility] [address] [place] [address] Transferrinon 10-31-2024 Transferrin [Mass/Vol] 228 mg/dL Normal 200-370 [facility] Comment on above: Performed By: #### 2 [id number] #### [facility] [address] [place] [address] Vit B12on 10-31-2024 Cobalamin (Vitamin B12) [Mass/Vol] 318 pg/mL Normal 50-1500 [facility] Comment on above: Performed By: #### 2 [id number] #### [facility] [address] [place] [address] XR Chest 2 Viewson XR Chest 2 Views Exam Date/Time: 10/31/2024 14:48 EDT Reason for Exam: R07.81;Chest pain Report IMPRESSION: NO RADIOGRAPHIC EVIDENCE OF ACUTE INTRATHORACIC PROCESS. EXAMINATION: XR Chest 2 Views HISTORY: Chest pain TECHNIQUE: Frontal and lateral views of the chest. COMPARISON: None available FINDINGS: Atherosclerotic calcification of the thoracic aorta. Cardiomediastinal silhouette is within normal limits. No pneumothorax, pleural effusion, or consolidation. Hyperinflation of the lungs and increased bronchovascular markings suggesting COPD. No acute osseous abnormality. Ordering Provider: Issac Conway FINAL REPORT Dictated: 10/31/2024 5:07 pm Dion Conley DO Signed (Electronic Signature): 10/31/2024 5:07 pm Signed by: Doin Conley DO Transcribed by: LICO Technologist: DUONG Barclay [facility] Ambulatory Visit Summaryon 1 09-25-2023 Ambulatory Visit Summary Ambulatory Visit Summary JOHANNA MACDONALD :1955 Visit Date:07/25/2024 Ambulatory Visit Instructions Your Diagnosis BMI 30.0-30.9,adult Exogenous obesity Smoker Your Care Team Attending Physician - Issac Conway MD Primary Care Physician - Issac Conway MD This Is Your Medications List Misc Prescription (B12) Misc Prescription (B12) Misc Prescription (Misc DME Prescription) Misc Prescription (nebulizer supplies) albuterol-ipratropium (albuterol-ipratropium Inh Ana Cristina 3 mL UD) amlodipine (amLODIPine 10 mg Tab) aspirin (aspirin 81 mg Oral EC Tab) atorvastatin (atorvastatin 80 mg Tab) cyanocobalamin (cyanocobalamin 1000 mcg/mL Inj) esomeprazole (esomeprazole 40 mg Cap-EC) nitroglycerin quetiapine (SEROquel 100 mg Tab) sacubitril-valsartan (Entresto 24 mg-26 mg oral tablet) Procedures Performed Cardiac catheterization (02/17/2023), Abdominal hernia, Cardiac catheter, Cholecystectomy, Colonoscopy, EGD (esophagogastroduodenos copy) and closure of duodenal fistula, Exploratory laparotomy, MELVIN BSO - Total abdominal hysterectomy and bilateral salpingo-oophorectomy. Discharge Vitals Temperature (Temporal Artery) 36.7 ???C Heart Rate (Peripheral) 76 Respiratory Rate 16 Blood Pressure 130/76 Height 151 cm Height 59 in Weight 70.3 kg Weight 154.985 lb BMI 30.83 What to do next Scheduled Follow-Up Appointments Wednesday 2:00 PM EDT With: Man GUY, Issac Sam Where: [address] [address]- Wednesday 2:00 PM EDT With: Marta GUY, Marianne Carney Where: [facility] Wednesday 2:30 PM EDT With: Where: [address] [address]- Medications What How Much When Why Instructions Changed Misc Prescription (B12) See instructions B12 deficiency dispense quantity sufficient for IM B12 injections: 3 mL syringes and 1 inch/ 23 gauge needles Changed Misc Prescription (B12) See instructions B12 deficiency IntraMuscular Changed Misc Prescription (Misc DME Prescription) See instructions wear O2 as directed Changed Misc Prescription (nebulizer supplies) See instructions nebulizer supplies- tubing and cup Unchanged albuterol-ipratropium (albuterol-ipratropium Inh Ana Cristina 3 mL UD) 3 Milliliter Nebulized inhalation (aerosol) 4 times a day Unchanged amlodipine (amLODIPine 10 mg Tab) 1 Tablets By Mouth Every day Duration: 90 Days Unchanged aspirin (aspirin 81 mg Oral EC Tab) 1 Tablets By Mouth Every day Unchanged atorvastatin (atorvastatin 80 mg Tab) 1 Tablets By Mouth Every day Duration: 90 Days Unchanged cyanocobalamin (cyanocobalamin 1000 mcg/ mL Inj) See instructions B12 deficiency 1 mL IntraMuscular every other week Unchanged esomeprazole (esomeprazole 40 mg Cap-EC) 1 Capsules By Mouth 2 times a day TAKE 1 CAPSULE BY MOUTH TWICE DAILY Unchanged nitroglycerin See instructions 0.4 mg SubLingual as needed for chest pain Unchanged quetiapine (SEROquel 100 mg Tab) 1 Tablets By Mouth Every day Other fatigue Insomnia, unspecified BMI 30.0-30.9,adult Obesity (BMI 30-39.9) Nonsmoker At night for sleep. OK to take a half and increase to the full as needed. Unchanged sacubitril-valsartan (Entresto 24 mg-26 mg oral tablet) 1 Tablets By Mouth 2 times a day Allergies Biaxin (Unknown) Cipro (Unknown) Keflex (Unknown) amoxicillin (Unknown) atenolol (Unknown) doxycycline (Unknown) sulfa drugs (Unknown) Problems Ongoing - Any problem that you are currently receiving treatment for. Abdominal pain, right lower quadrant Angina pectoris Arthritis Asthma B12 deficiency Blister of hand BMI 30.0-30.9,adult BMI 31.0-31.9,adult Bronchiectasis Bronchitis Chronic respiratory failure with hypoxia Controlled type 2 diabetes mellitus without complication, without long-term current use of insulin COPD without exacerbation Cough Fatigue GERD with esophagitis Heart failure History of tobacco use Hospital discharge follow-up Incarcerated ventral hernia Inguinal hernia Insomnia Malabsorption of iron Nonsmoker Obesity Obesity (BMI 30-39.9) Osteopenia Other iron deficiency anemia Pulmonary hypertension Status post repair of ventral hernia Steatohepatitis, non-alcoholic Systolic murmur Thrombocytosis Vitamin D deficiency Patient Survey You may receive a survey via text or e-mail asking about your office visit. Please share your experience with us by completing your survey. We appreciate your feedback and thank you for choosing us for your care. Normal [facility] Family Medicine Office/Clini c Noteon 07-25-2024 Family Medicine Office/Clinic Note Family Medicine Office/Clinic Note Chief Complaint Hearing issues with fluid in the left ear. HPI Staff Johanna is a 69 year old female presenting for one month follow up fatigue and insomnia Didn't sweet pickle maker rx from pharmacy because it's for depression and she's not depressed Been trying to go to bed earlier and develop a sleep pattern so it is better questions/concerns; not hearing well out of her left ear History of Present Illness The patient is a 69-year-old female presenting with concerns related to fluid accumulation behind the ear, affecting hearing, primarily on the left side. She reports difficulty with hearing, needing to increase TV volume. This issue was first observed intermittently but has become more concerning recently. She denies any preceding illness or trauma. There is no mention of pain, but she notes distortion of sounds. The patient states that she has been using quetiapine to help with sleep, unrelated to depressive symptoms, but since there is fluid retention, an alternative approach involving Benadryl is being considered. Past medical records indicate a diagnosis of nicotine dependence, exogenous obesity, and a BMI of 30.0-30.9 which may influence general health but were not directly implicated in the ear concern. She has a background of smoking, contributing slightly to overall health concerns. There is no indication of previous treatment for ear fluid in the provided conversation. Review of Systems PHQ Score Initial Depression Screen Score: 0 SCORE - Ears: Reports increased TV volume due to muffled hearing, primarily on the left. - Mood: Denies depressive symptoms but acknowledges prior use of quetiapine for sleep. - General: Reports generally improved wakefulness and alertness. Physical Exam Vitals & Measurements T: 36.7 ???C(Temporal Artery) HR: 76(Peripheral) RR: 16 BP: 130/76 SpO2: 96% HT: 59 in HT: 151 cm WT: 70.3 kg WT: 154.985 lb BMI: 30.83 General: alert, no acute distress ENMT: oral mucosa moist, fluid behind the left ear, muffled hearing, worse on the left Cardiovascular: Regular rate and rhythm, normal peripheral perfusion Respiratory: Lungs clear to auscultation, respirations non labored Extremities: no deformity, no trauma Neurological: oriented x 4, level of consciousness appropriate for age, CN II-XII intact, motor strength equal & normal bilaterally, speech normal Abdomen: Soft, Non-tender, Non-distended, + Bowel sounds Assessment/Plan 1. BMI 30.0-30.9,adult (Z68.30: Body mass index [BMI] 30.0-30.9, adult) The patient has a BMI indicative of obesity, which is addressed as part of broader health management. Continued monitoring and lifestyle modification discussions are warranted, but specific details were not included in this visit. Ordered: Body Mass Index (BMI) documented 3008F Current tobacco smoker 1034F Depression Screening Negative 3352F Most recent diastolic blood pressure <80 mm Hg 3078F Patient screen for fall risk: no falls in last year or 1 fall with no injury in last year 1101F Systolic BP 130-139 mm Hg (Most Recent) 3075F 2. Exogenous obesity (E66.09: Other obesity due to excess calories) Acknowledged as a factor in general health. No direct intervention was discussed during the visit; however, this remains part of the multi-disciplinary approach to wellness. Ordered: Body Mass Index (BMI) documented 3008F Current tobacco smoker 1034F Depression Screening Negative 3352F Most recent diastolic blood pressure <80 mm Hg 3078F Patient screen for fall risk: no falls in last year or 1 fall with no injury in last year 1101F Systolic BP 130-139 mm Hg (Most Recent) 3075F 3. Smoker (F17.200: Nicotine dependence, unspecified, uncomplicated) Please stop smoking. Ordered: Body Mass Index (BMI) documented 3008F Current tobacco smoker 1034F Depression Screening Negative 3352F Most recent diastolic blood pressure <80 mm Hg 3078F Patient screen for fall risk: no falls in last year or 1 fall with no injury in last year 1101F Systolic BP 130-139 mm Hg (Most Recent) [id number] 4. Unspecified nonsuppurative otitis media, bilateral (H65.93) The presence of fluid behind the left ear was noted, primarily contributing to muffled hearing. Management includes discontinuing quetiapine as a sleep aid due to its unrelated depressive application and substituting with Benadryl. Benadryl is prescribed to aid in sleeping and expected to contribute to drying up the ear fluid. Additionally, a nasal corticosteroid, Flonase, was recommended to assist in reducing the fluid retention. 5. Tobacco use (Z72.0) The patient has a history of nicotine dependence. While there were no specific discussions on cessation strategies during this visit, it remains advisable as part of health optimization. Orders: fluticasone nasal, 1 spray(s), Nasal, BID, 16 gram, Refill(s) 0, each nostril, [facility], 151, cm, 07/25/24 13:56:00 EST, Height/Length Dosing, 70.3, kg, 07/25/ (more content not included)... Normal [facility] Comment on above: Result Comment: Elec tronically Signed By: Issac Conway MD\.br\Date and Time Signed: 07/25/24 14:26 EST Ambulatory Visit Summaryon 1 08-29-2023 Ambulatory Visit Summary Ambulatory Visit Summary JOHANNA MACDONALD :1955 Visit Date:06/29/2024 Ambulatory Visit Instructions Your Diagnosis Angina pectoris BMI 30.0-30.9,adult Obesity (BMI 30-39.9) Nonsmoker Your Care Team Attending Physician - Issac Conway MD Primary Care Physician - Issac Conway MD This Is Your Medications List Misc Prescription (Misc DME Prescription) Misc Prescription (nebulizer supplies) albuterol-ipratropium (albuterol-ipratropium Inh Ana Cristina 3 mL UD) amlodipine (amLODIPine 10 mg Tab) aspirin (aspirin 81 mg Oral EC Tab) atorvastatin (atorvastatin 80 mg Tab) esomeprazole (esomeprazole 40 mg Cap-EC) fluticasone-vilanterol (Breo Ellipta 200 mcg-25 mcg/inh inhalation powder) nitroglycerin ondansetron (Zofran 4 mg Tab) sacubitril-valsartan (Entresto 24 mg-26 mg oral tablet) trazodone (traZODONE 50 mg Tab) Procedures Performed Cardiac catheterization (02/17/2023), Abdominal hernia, Cardiac catheter, Cholecystectomy, Colonoscopy, EGD (esophagogastroduodenos copy) and closure of duodenal fistula, Exploratory laparotomy, MELVIN BSO - Total abdominal hysterectomy and bilateral salpingo-oophorectomy. Discharge Vitals Temperature (Tympanic) 36.5 ???C Heart Rate (Peripheral) 68 Respiratory Rate 18 Blood Pressure 136/72 Height 151 cm Height 59 in Weight 70.1 kg Weight 154.544 lb BMI 30.74 What to do next Scheduled Follow-Up Appointments Wednesday 2:00 PM EST With: Where: [facility] Wednesday 2:20 PM EST With: Marta GUY, Marianne Carney Where: [facility] 2023 2:45 PM EST With: Issac Conway MD Where: [address] [id number]- Wednesday 2:00 PM EST With: Where: [facility] Wednesday 2:00 PM EST With: Where: [facility] Wednesday 2:00 PM EST With: Where: [facility] Wednesday 2:00 PM EDT With: Where: [facility] Wednesday 2:00 PM EDT With: Where: [facility] Wednesday 2:00 PM EDT With: Where: [facility] Wednesday 2:00 PM EDT With: Where: [facility] Wednesday 2:30 PM EDT With: Where: [address] [address]- Wednesday 2:00 PM EDT With: Where: [facility] Wednesday 2:00 PM EDT With: Where: [facility] Wednesday 2:00 PM EDT With: Where: [facility] Wednesday 2:00 PM EDT With: Where: [facility] Wednesday 2:00 PM EDT With: Where: [facility] Medications What How Much When Why Instructions Unchanged albuterol-ipratropium (albuterol-ipratropium Inh Ana Cristina 3 mL UD) 3 Milliliter Nebulized inhalation (aerosol) 4 times a day Unchanged amlodipine (amLODIPine 10 mg Tab) 1 Tablets By Mouth Every day Duration: 90 Days Unchanged aspirin (aspirin 81 mg Oral EC Tab) 1 Tablets By Mouth Every day Unchanged atorvastatin (atorvastatin 80 mg Tab) 1 Tablets By Mouth Every day Duration: 90 Days Unchanged esomeprazole (esomeprazole 40 mg Cap-EC) 1 Capsules By Mouth 2 times a day TAKE 1 CAPSULE BY MOUTH TWICE DAILY Unchanged fluticasone-vilanterol (Breo Ellipta 200 mcg-25 mcg/ inh inhalation powder) 1 Puffs Inhalation Every day COPD without exacerbation Duration: 30 Days Unchanged Misc Prescription (Misc DME Prescription) See instructions wear O2 as directed Unchanged Misc Prescription (nebulizer supplies) See instructions nebulizer supplies- tubing and cup Unchanged nitroglycerin See instructions 0.4 mg SubLingual as needed for chest pain Unchanged ondansetron (Zofran 4 mg Tab) 1 Tablets By Mouth Every 8 hours Unchanged sacubitril-valsartan (Entresto 24 mg-26 mg oral tablet) 1 Tablets By Mouth 2 times a day Unchanged trazodone (traZODONE 50 mg Tab) 1 Tablets By Mouth Once a day (at bedtime) Allergies Biaxin (Unknown) Cipro (Unknown) Keflex (Unknown) amoxicillin (Unknown) atenolol (Unknown) doxycycline (Unknown) sulfa drugs (Unknown) Problems Ongoing - Any problem that you are currently receiving treatment for. Abdominal pain, right lower quadrant Angina pectoris Arthritis Asthma B12 deficiency Blister of hand BMI 30.0-30.9,adult BMI 31.0-31.9,adult Bronchiectasis Bronchitis Chronic respiratory failure with hypoxia Controlled type 2 diabetes mellitus without complication, without long-term current use of insulin COPD without exacerbation Cough Fatigue GERD with esophagitis Heart failure History of tobacco use Hospital discharge follow-up Incarcerated ventral hernia Inguinal hernia Insomnia Malabsorption of iron Nonsmoker Obesity Obesity (BMI 30-39.9) Osteopenia Other iron deficiency anemia Pulmonary hypertension Status post repair of ventral hernia Steatohepa (more content not included)... Normal [facility] Family Medicine Office/Clini c Noteon 06-29-2024 Family Medicine Office/Clinic Note Family Medicine Office/Clinic Note Chief Complaint 1m follow up Difficulty sleeping and persistent fatigue HPI Staff Johanna is a 69 year old female presenting for one month follow up sleep, fatigue Started on Trazodone qhs at [facility]. States she notices slight improvement. Still feeling tired during the day. Does have appt for Vit B12 shot. History of Present Illness The patient is a 69-year-old female presenting with insomnia and persistent fatigue. She reports struggling with sleep despite attempting intervention with trazodone, which provided minimal relief. The fatigue is ongoing, and the patient describes feeling drained and tired on a daily basis. The patient consumes significant quantities of Diet Coke and coffee, which may contribute to sleep disturbances. Sleep patterns show that caffeine intake, especially in the evening, potentially exacerbates her condition by causing intermittent wakefulness. The patient mentions using Diet Coke habitually and associates poor sleep with increased caffeine consumption. Additionally, the patient has a self-reported history of dehydration potentially linked to excessive Diet Coke intake. Previous attempts to use antidepressants for sleep improvement were unsuccessful. 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 These problems arise in the context of angina pectoris and obesity, each potentially influencing her overall health status. The patient reports having felt better energy-calderón when receiving B12 injections, which she is scheduled to continue. Additionally, a spouse reported insomnia potentially due to long-term stress and may share a similar sleep pattern, further indicating a possible environmental or lifestyle factor influencing her condition. Review of Systems PHQ Score Initial Depression Screen Score: 0 SCORE Physical Exam Vitals & Measurements T: 36.5 ???C(Tympanic) HR: 68(Peripheral) RR: 18 BP: 136/72 SpO2: 97% HT: 59 in HT: 151 cm WT: 70.1 kg WT: 154.544 lb BMI: 30.74 General: alert, no acute distress ENMT: oral mucosa moist Cardiovascular: Regular rate and rhythm, normal peripheral perfusion Respiratory: Lungs clear to auscultation, respirations non labored Extremities: no deformity, no trauma Neurological: oriented x 4, level of consciousness appropriate for age, CN II-XII intact, motor strength equal & normal bilaterally, speech normal Abdomen: Soft, Non-tender, Non-distended, + Bowel sounds Assessment/Plan 1. Other fatigue (R53.83) Encourage hydration and assess effects of caffeine reduction and improved sleep hygiene. Evaluate potential benefits of ongoing supplementation and encourage continuation of appropriate doses. Ordered: quetiapine, 100 mg = 1 tab(s), Oral, Daily, At night for sleep. OK to take a half and increase to the full as needed., # 90 tab(s), Refills(s) 0, Pharmacy: [facility], 151, cm, 06/29/24 12:57:00 EST, Height/Length Dosing, 70.1, kg, 06/29/24 12:57:... 2. Insomnia, unspecified (G47.00) Consider the reduction of caffeine intake, particularly avoiding it after noon to prevent interference with sleep. Seroquel may be introduced as a potential sleep aid if lifestyle modifications alone are insufficient. Monitor sleep patterns and response closely. Ordered: quetiapine, 100 mg = 1 tab(s), Oral, Daily, At night for sleep. OK to take a half and increase to the full as needed., # 90 tab(s), Refills(s) 0, Pharmacy: [facility], 151, cm, 06/29/24 12:57:00 EST, Height/Length Dosing, 70.1, kg, 06/29/24 12:57:... 3. BMI 30.0-30.9,adult (Z68.30: Body mass index [BMI] 30.0-30.9, adult) BMI education added. Ordered: quetiapine, 100 mg = 1 tab(s), Oral, Daily, At night for sleep. OK to take a half and increase to the full as needed., # 90 tab(s), Refills(s) 0, Pharmacy: [facility], 151, cm, 06/29/24 12:57:00 EST, Height/Length Dosing, 70.1, kg, 06/29/24 12:57:... 4. Obesity (BMI 30-39.9) (E66.9: Obesity, unspecified) Implement and encourage regular aerobic physical activity that suits her abilities and lifestyle, with dietary modifications for weight management. Discussed potential benefits of introducing structured group activities. Ordered: quetiapine, 100 mg = 1 tab(s), Oral, Daily, At night for sleep. OK to take a half and increase to the full as needed., # 90 tab(s), Refills(s) 0, Pharmacy: [facility], 151, cm, 06/29/24 12:57:00 EST, Height/Length Dosing, 70.1, kg, 06/29/24 12:57:... 5. Nonsmoker (Z78.9: Other specified health status) Reinforce smoking cessation and promote this as a positive lifestyle decision contributing to overall health. Ordered: quetiapine, 100 mg = 1 tab(s), Oral, Daily, At night for sleep. OK to take a half and increase to the full as needed., # 90 tab(s), Refills(s) 0, Pharmacy: [facility], 151, cm, 06/29/24 12:57:00 EST, Height/Lengt (more content not included)... Normal [facility] Comment on above: Result Comment: Elec tronically Signed By: Man GUY, Issac Rodriguezbr\Date and Time Signed: 06/29/24 14:01 EST CBC w/ Auto Diffon 4 Basophils/100 WBC (Bld) 0.3 % Normal 0.0-2.0 [facility] Comment on above: Performed By: #### 2 [id number] #### [facility] [address] [place] [address] Basophils/Leukocyte s Auto (Bld) [Pure # fraction] 0.0 E9/L Normal 0.0-0.2 [facility] Comment on above: Performed By: #### 2 [id number] #### [facility] [address] [place] [address] Eosinophils (Bld) [#/Vol] 0.3 E9/L Normal 0.0-0.5 [facility] Comment on above: Performed By: #### 2 [id number] #### [facility] [address] [place] [address] Eosinophils/100 WBC (Bld) 3.6 % Normal 0.0-8.0 [facility] Comment on above: Performed By: #### 2 [id number] #### [facility] [address] [place] [address] Erythrocyte distribution width (RBC) [Ratio] 14.8 % High 10.9-14.2 [facility] Comment on above: Performed By: #### 2 [id number] #### [facility] [address] [place] [address] Hematocrit (Bld) [Volume fraction] 38.9 % Normal 34.0-46.0 [facility] Comment on above: Performed By: #### 2 [id number] #### [facility] [address] [place] [address] Hemoglobin (Bld) [Mass/Vol] 13.4 g/dL Normal 12.0-16.0 [facility] Comment on above: Performed By: #### 2 [id number] #### [facility] [address] [place] [address] Lymphocytes (Bld) [#/Vol] 2.2 E9/L Normal 1.0-4.0 [facility] Comment on above: Performed By: #### 2 [id number] #### [facility] [address] [place] [address] Lymphocytes/100 WBC (Bld) 22.6 % Normal 14.0-50.0 [facility] Comment on above: Performed By: #### 2 [id number] #### [facility] [address] [place] [address] MCH (RBC) [Entitic mass] 28.7 pg Normal 27.0-34.0 [facility] Comment on above: Performed By: #### 2 [id number] #### [facility] [address] [place] [address] MCHC (RBC) [Mass/Vol] 34.4 g/dL Normal 31.4-36.0 [facility] Comment on above: Performed By: #### 2 [id number] #### [facility] [address] [place] [address] MCV (RBC) [Entitic vol] 83.5 fL Normal 80.0-100.0 [facility] Comment on above: Performed By: #### 2 [id number] #### [facility] [address] [place] [address] Monocytes (Bld) [#/Vol] 0.8 E9/L Normal 0.2-1.0 [facility] Comment on above: Performed By: #### 2 [id number] #### [facility] [address] [place] [address] Neutrophils (Bld) [#/Vol] 6.2 E9/L Normal 2.0-7.5 [facility] Comment on above: Performed By: #### 2 [id number] #### [facility] [address] [place] [address] Neutrophils/100 WBC (Bld) 65.1 % Normal 36.0-75.0 [facility] Comment on above: Performed By: #### 2 [id number] #### [facility] [address] [place] [address] Platelet mean volume (Bld) [Entitic vol] 7.6 fL Normal 6.4-10.8 [facility] Comment on above: Performed By: #### 2 [id number] #### [facility] [address] [place] [address] Platelets (Bld) [#/Vol] 393.0 E9/L Normal 150.0-500.0 [facility] Comment on above: Performed By: #### 2 [id number] #### [facility] [address] [place] [address] RBC (Bld) [#/Vol] 4.7 E12/L Normal 4.3-5.9 [facility] Comment on above: Performed By: #### 2 [id number] #### [facility] [address] [place] [address] WBC corrected for nucl RBC Auto (Bld) [#/Vol] 9.6 E9/L Normal 4.0-11.0 [facility] Comment on above: Performed By: #### 2 [id number] #### [facility] [address] [place] [address] CHEMISTRYOrdered By: SYSTEM SYSTEM on 06-13-2024 Cobalamin (Vitamin B12) [Mass/Vol] 270 pg/mL Normal 50 - 1500 pg/mL Remisol Chem Ferritin [Mass/Vol] 221 ng/mL Normal 11 - 307 ng/mL R emisol Chem Iron [Mass/Vol] 56 ug/dL Normal 35 - 153 mcg/dL Brad ana cristina Chem Iron binding capacity [Mass/Vol] 272 ug/dL Normal 250 - 400 mcg/dL Remisol Natalie m Iron saturation [Mass fraction] 21 % Normal 20 - 50 % Remisol Chem Transferrin [Mass/Vol] 194 mg/dL Low 200 - 370 mg/dL Remisol Chem Ferritinon 06-13-2024 Ferritin [Mass/Vol] 221 ng/mL Normal 11-307 [facility] Comment on above: Performed By: #### 2 [id number] #### [facility] [address] [place] [address] HEMATOLOGYOrdered By: SYSTEM SYSTEM on 06-13-2024 Basophils/100 WBC (Bld) 0.3 % Normal 0.0 - 2.0 % Remisol Heme Basophils/Leukocyte s Auto (Bld) [Pure # fraction] 0.0 E9/L Normal 0.0 - 0.2 E9/L Remisol Heme Eosinophils (Bld) [#/Vol] 0.3 E9/L Normal 0.0 - 0.5 E9/L Remisol Heme Eosinophils/100 WBC (Bld) 3.6 % Normal 0.0 - 8.0 % Remisol Heme Erythrocyte distribution width (RBC) [Ratio] 14.8 % High 10.9 - 14.2 % Remisol Heme Hematocrit (Bld) [Volume fraction] 38.9 % Normal 34.0 - 46.0 % Remisol Heme Hemoglobin (Bld) [Mass/Vol] 13.4 g/dL Normal 12.0 - 16.0 gm/dL Remisol Heme Lymphocytes (Bld) [#/Vol] 2.2 E9/L Normal 1.0 - 4.0 E9/L Remisol Heme Lymphocytes/100 WBC (Bld) 22.6 % Normal 14.0 - 50.0 % Remisol Heme MCH (RBC) [Entitic mass] 28.7 pg Normal 27.0 - 34.0 pg Remisol Heme MCHC (RBC) [Mass/Vol] 34.4 g/dL Normal 31.4 - 36.0 gm/dL Remisol Heme MCV (RBC) [Entitic vol] 83.5 fL Normal 80.0 - 100.0 fL Remisol Heme Monocytes (Bld) [#/Vol] 0.8 E9/L Normal 0.2 - 1.0 E9/L Remisol Heme Monocytes/100 WBC (Bld) 8.4 % Normal 4.0 - 14.0 % Remisol Heme Neutrophils (Bld) [#/Vol] 6.2 E9/L Normal 2.0 - 7.5 E9/L Remisol Heme Neutrophils/100 WBC (Bld) 65.1 % Normal 36.0 - 75.0 % Remisol Heme Platelet mean volume (Bld) [Entitic vol] 7.6 fL Normal 6.4 - 10.8 fL Remisol Heme Platelets (Bld) [#/Vol] 393.0 E9/L Normal 150.0 - 500.0 E9/L Remisol Heme RBC (Bld) [#/Vol] 4.7 E12/L Normal 4.3 - 5.9 E12/L Re misol Heme WBC corrected for nucl RBC Auto (Bld) [#/Vol] 9.6 E9/L Normal 4.0 - 11.0 E9/L Remisol Heme Ironon 06-13-2024 Iron [Mass/Vol] 56 microgram/dL Normal 35-153 [facility] Comment on above: Performed By: #### 2 [id number] #### [facility] [address] [place] [address] Iron Saturationon 06-13-2024 Iron binding capacity [Mass/Vol] 272 microgram/dL Normal 250-400 [facility] Comment on above: Performed By: #### 2 [id number] #### [facility] [address] [place] [address] Iron saturation [Mass fraction] 21 % Normal 20-50 [facility] Comment on above: Performed By: #### 2 [id number] #### [facility] [address] [place] [address] Transferrinon 06-13-2024 Transferrin [Mass/Vol] 194 mg/dL Low 200-370 [facility] Comment on above: Performed By: #### 2 [id number] #### [facility] [address] [place] [address] Vit B12on 06-13-2024 Cobalamin (Vitamin B12) [Mass/Vol] 270 pg/mL Normal 50-1500 [facility] Comment on above: Performed By: #### 2 [id number] #### [facility] [address] [place] [address] Ambulatory Visit Summaryon 1 Ambulatory Visit Summary Ambulatory Visit Summary RUNION, JOHANNA :1955 Visit Date:05/30/2024 Ambulatory Visit Instructions Your Diagnosis Fatigue Insomnia BMI 30.0-30.9,adult Exogenous obesity Smoker Your Care Team Attending Physician - Issac oCnway MD Primary Care Physician - Issac Conway MD This Is Your Medications List Misc Prescription (Misc DME Prescription) Misc Prescription (nebulizer supplies) albuterol-ipratropium (albuterol-ipratropium Inh Ana Cristina 3 mL UD) amlodipine (amLODIPine 10 mg Tab) aspirin (aspirin 81 mg Oral EC Tab) atorvastatin (atorvastatin 80 mg Tab) esomeprazole (esomeprazole 40 mg Cap-EC) fluticasone-vilanterol (Breo Ellipta 200 mcg-25 mcg/inh inhalation powder) nitroglycerin ondansetron (Zofran 4 mg Tab) sacubitril-valsartan (Entresto 24 mg-26 mg oral tablet) trazodone (traZODONE 50 mg Tab) Procedures Performed Cardiac catheterization (02/17/2023), Abdominal hernia, Cardiac catheter, Cholecystectomy, Colonoscopy, EGD (esophagogastroduodenos copy) and closure of duodenal fistula, Exploratory laparotomy, MELVIN BSO - Total abdominal hysterectomy and bilateral salpingo-oophorectomy. Discharge Vitals Temperature (Temporal Artery) 36.8 ?C Heart Rate (Peripheral) 76 Respiratory Rate 16 Blood Pressure 112/60 Height 151 cm Height 59 in Weight 69.5 kg Weight 152.9 lb BMI 30.48 What to do next Scheduled Follow-Up Appointments Wednesday 2:00 PM EDT With: Where: [facility] Wednesday 3:00 PM EST With: Marta GUY, yeni Carney Where: [facility] 2023 1:15 PM EST With: Issac Conway MD Where: [facility] [address] [address]- Wednesday 2:00 PM EST With: Where: [facility] Wednesday 2:00 PM EST With: Where: [facility] Wednesday 2:00 PM EST With: Where: [facility] Wednesday 2:00 PM EST With: Where: [facility] Wednesday 2:00 PM EDT With: Where: [facility] Wednesday 2:00 PM EDT With: Where: [facility] Wednesday 2:00 PM EDT With: Where: [facility] Wednesday 2:00 PM EDT With: Where: [facility] Wednesday 2:30 PM EDT With: Where: [address] [address]- Wednesday 2:00 PM EDT With: Where: [facility] Wednesday 2:00 PM EDT With: Where: [facility] Wednesday 2:00 PM EDT With: Where: [facility] Wednesday 2:00 PM EDT With: Where: [facility] Wednesday 2:00 PM EDT With: Where[facility] Medications What How Much When Why Instructions Unchanged albuterol-ipratropium (albuterol-ipratropium Inh Ana Cristina 3 mL UD) See instructions TAKE 3ml BY MOUTH FOUR TIMES DAILY Unchanged amlodipine (amLODIPine 10 mg Tab) 1 Tablets By Mouth Every day Duration: 90 Days Unchanged aspirin (aspirin 81 mg Oral EC Tab) 1 Tablets By Mouth Every day Unchanged atorvastatin (atorvastatin 80 mg Tab) 1 Tablets By Mouth Every day Duration: 90 Days Unchanged esomeprazole (esomeprazole 40 mg Cap-EC) 1 Capsules By Mouth 2 times a day TAKE 1 CAPSULE BY MOUTH TWICE DAILY Unchanged fluticasone-vilanterol (Breo Ellipta 200 mcg-25 mcg/ inh inhalation powder) 1 Puffs Inhalation Every day COPD without exacerbation Duration: 30 Days Unchanged Misc Prescription (Misc DME Prescription) See instructions wear O2 as directed Unchanged Misc Prescription (nebulizer supplies) See instructions nebulizer supplies- tubing and cup Unchanged nitroglycerin See instructions 0.4 mg SubLingual as needed for chest pain Unchanged ondansetron (Zofran 4 mg Tab) 1 Tablets By Mouth Every 8 hours Unchanged sacubitril-valsartan (Entresto 24 mg-26 mg oral tablet) 1 Tablets By Mouth 2 times a day Unchanged trazodone (traZODONE 50 mg Tab) 1 Tablets By Mouth Once a day (at bedtime) Medications and Immunizations Administered Not Given influenza virus vaccine, inactivated, Patient Refuses Allergies Biaxin (Unknown) Cipro (Unknown) Keflex (Unknown) amoxicillin (Unknown) atenolol (Unknown) doxycycline (Unknown) sulfa drugs (Unknown) Problems Ongoing - Any problem that you are currently receiving treatment for. Abdominal pain, right lower quadrant Anemia Arthritis Asthma B12 deficiency Blister of hand BMI 31.0-31.9,adult Bronchiectasis Bronchitis Chronic obstructive pulmonary disease Chronic respiratory failure with hypoxia Controlled type 2 diabetes mellitus without complication, without long-term current use of insulin COPD without exacerbation Cough Fatigue GERD with esophagitis Heart failure History of tobacco use Hospital discharge follow-up Hypoxemia Incarcerated ventral hernia Inguinal hernia Insomnia (more content not included)... Normal [facility] Family Medicine Office/Clini c Noteon 05-30-2024 Family Medicine Office/Clinic Note Family Medicine Office/Clinic Note Chief Complaint The patient presents with persistent fatigue and sleep disturbances. HPI Staff Johanna is a 69 year old female presenting for one month follow up fatigue and sleep issues ARELI encouraged to use trazodone She hasn't tried the trazodone yet, says she's always tired flu: refused questions/concerns: underneath her abd is what looks like a scab from her hernia surgery and it won't come off when it showers Needs refills of her atorvastatin, History of Present Illness The patient is a 69-year-old female presenting with sleep disturbances and fatigue. The patient reports difficulties with sleeping, describing issues with fatigue and feeling sleepy throughout the day. She attributes these feelings of lethargy to starting low-dose testosterone therapy, though the exact onset of the fatigue is not clearly defined within the conversation. The patient also notes a disrupted sleep cycle, with a habitual bedtime around midnight to 2:00 AM, and regular awakening by alarm at 8:20 AM. She reports not waking up naturally, which suggests possible sleep deprivation. The patient elaborates on her sleep routine, noting she does not take daytime naps and does not recall instances of falling asleep inadvertently while watching TV. Patient recounts past medical history significant for surgical procedures, though the specific nature and dates of surgeries were not detailed in the conversation. The patient and conversation partner discussed potential interventions for resetting the patient's sleep cycle, like adjusting sleep-wake times and possibly utilizing medications such as trazodone. Nicotine dependence is an ongoing concern, though its direct impact on sleep or fatigue was not elaborated on. The patient?s BMI and obesity status may also contribute to her fatigue and sleep difficulties. Review of Systems PHQ Score Initial Depression Screen Score: 0 SCORE - General: Reports feeling sleepy and tired during the day. - Sleep: Reports difficulty maintaining an effective sleep cycle with late bedtimes and early wake-ups. - Activities: Denies falling asleep inadvertently during the day, such as when watching television. Physical Exam Vitals & Measurements T: 36.8 ?C(Temporal Artery) HR: 76(Peripheral) RR: 16 BP: 112/60 SpO2: 98% HT: 59 in HT: 151 cm WT: 69.5 kg WT: 152.9 lb BMI: 30.48 General: alert, no acute distress ENMT: oral mucosa moist Cardiovascular: Regular rate and rhythm, normal peripheral perfusion Respiratory: Lungs clear to auscultation, respirations non labored Extremities: no deformity, no trauma Neurological: oriented x 4, level of consciousness appropriate for age, CN II-XII intact, motor strength equal & normal bilaterally, speech normal Abdomen: Soft, Non-tender, Non-distended, + Bowel sounds Assessment/Plan 1. Fatigue (R53.83: Other fatigue) The fatigue is potentially exacerbated by the patient's ongoing insomnia and possibly her recent changes in medication with testosterone therapy. The patient is advised to explore behavioral interventions to adjust her sleep cycle as a potential alleviation of daytime fatigue symptoms. Consideration of the impact of nicotine dependence and obesity on energy levels should also be addressed. Monitoring the effect of cognitive behavioral changes and medication adherence regarding fatigue is highlighted as part of future follow-ups. Ordered: Body Mass Index (BMI) documented 3008F Current tobacco smoker 1034F Depression Screening Negative 3352F Influenza immunization status assessed 1030F Most recent diastolic blood pressure <80 mm Hg 3078F Patient screen for fall risk: no falls in last year or 1 fall with no injury in last year 1101F Systolic BP <130 mm Hg (Most Recent) 3074F 2. Insomnia (G47.00: Insomnia, unspecified) The patient?s insomnia appears to be characterized by difficulty in maintaining a regular sleep schedule and experiencing sleep deprivation as a result. It is essential to address the underlying causes as suggested during the conversation, which include the current use of testosterone therapy and potential behavioral modifications such as establishing a more consistent sleep schedule. Discussion around possibly utilizing sleep aids, such as trazodone, to facilitate earlier sleep onset was mentioned as a potential intervention. Counseling on sleep hygiene and regular follow-up to assess the effectiveness of these interventions was suggested. Ordered: Body Mass Index (BMI) documented 3008F Current tobacco smoker 1034F Depression Screening Negative 3352F Influenza immunization status assessed 1030F Most recent diastolic blood pressure <80 mm Hg 3078F Patient screen for fall risk: no falls in last year or 1 fall with no injury in last year 1101F Systolic BP <130 mm Hg (Most Recent) 3074F 3. BMI 30.0-30.9,adult (Z68.30: Body mass index [BMI] 30.0-30.9, adult) BMI education added. Ordered: Body Mass Index (BMI) docume (more content not included)... Normal [facility] Comment on above: Result Comment: Elec tronically Signed By: Man GUY, Issac Sam\.br\Date and Time Signed: 05/30/24 13:37 EDT Office Visiton 05-17-2024 Follow-up visit [id number] Joellen Macdonald 1955 F Date Provider Department Center 05/17/2024 AC ARAYA ARIS [facility] Family History Problem Relation Age of Onset Coronary artery disease Brother Other Brother Family Status - Relation Status Age at Brother Level of Service:03757 DE OFFICE/OUTPATIENT ESTABLISHED LOW MDM 20 MIN Normal [facility] Population Health 05-08-20 Population [facility] Population Health Case Information Case Priority: None Programs: -- Referral Source: 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 Referral Reason: Care coordination Case Type: Transition Care Management Risk Score: -- Case Status: Enrolled (April 14, 2024) Date Assigned: April 14, 2024 Assigned By: Junaid Keys Date Enrolled: April 14, 2024 Assigned Primary Personnel: Junaid Keys Assigned Secondary Personnel: -- Case Physician: Issac Conway MD Ongoing Abdominal pain, right lower quadrant Anemia Arthritis Asthma B12 deficiency Blister of hand BMI 31.0-31.9,adult Bronchiectasis Bronchitis Chronic obstructive pulmonary disease Chronic respiratory failure with hypoxia Controlled type 2 diabetes mellitus without complication, without long-term current use of insulin COPD without exacerbation Cough Fatigue GERD with esophagitis Heart failure History of tobacco use Hospital discharge follow-up Hypoxemia Incarcerated ventral hernia Inguinal hernia Insomnia Malabsorption of iron Obesity Osteopenia Other iron deficiency anemia Pulmonary hypertension Status post repair of ventral hernia Steatohepatitis, non-alcoholic Systolic murmur Thrombocytosis Vitamin D deficiency Historical No qualifying data Procedure/Surgical History Cardiac catheterization (02/17/2023), Abdominal hernia, Cardiac catheter, Cholecystectomy, Colonoscopy, EGD (esophagogastroduodenos copy) and closure of duodenal fistula, Exploratory laparotomy, MELVIN BSO - Total abdominal hysterectomy and bilateral salpingo-oophorectomy. Home Medications albuterol-ipratropium Inh Ana Cristina 3 mL UD, See Instructions amLODIPine 10 mg Tab, 10 mg= 1 tab(s), Oral, Daily, 3 refills aspirin 81 mg Oral EC Tab, 81 mg= 1 tab(s), Oral, Daily atorvastatin 80 mg Tab, 80 mg= 1 tab(s), Oral, Daily, 3 refills Breo Ellipta 200 mcg-25 mcg/inh inhalation powder, 1 puff(s), Inhalation, Daily, 5 refills, Not taking Entresto 24 mg-26 mg oral tablet, 1 tab(s), Oral, BID esomeprazole 40 mg Cap-EC, 40 mg= 1 cap(s), Oral, BID, 3 refills Farxiga, 10 mg, Oral, Daily, Not taking: YET TO [employer] furosemide 40 mg Tab, 40 mg= 1 tab(s), Oral, Daily, 4 refills Misc DME Prescription nebulizer supplies, See Instructions, Still taking, not as prescribed: PATINT ADMITS SHE HAS NOT TAKEN MEDICATIONS YET TODAY AND IS NOT GOING TO TAKE UNTIL 04/16 IN ORDER TO 'START FRESH' Patient seems to be non-compliant with medication education was provided nitroglycerin, See Instructions Potassium Chloride (Jqc-Hwgd-Tws 10) 10 mEq oral tablet, extended release, 10 mEq, Oral, Daily, 3 refills Zofran 4 mg Tab, 4 mg= 1 tab(s), Oral, q8hr Allergies Biaxin (Unknown) Cipro (Unknown) Keflex (Unknown) amoxicillin (Unknown) atenolol (Unknown) doxycycline (Unknown) sulfa drugs (Unknown) Social History Alcohol - Denies Alcohol Use, 02/22/2023 Household alcohol concerns: No., 02/15/2024 Substance Abuse - Denies Substance Abuse, 01/13/2023 Household substance abuse concerns: No., 01/13/2023 Tobacco - Medium Risk, 01/13/2023 10 or more cigarettes (1/2 pack or more)/day in last 30 days Tobacco Use:. Never Smokeless Tobacco Use:. Cigarettes, 1.5 per day. Started age 17.0 Years. Previous treatment: None. Ready to change: No. Household tobacco concerns: No. Yes, 04/25/2024 Family History Acute myocardial infarction: Father. Alzheimer's disease: Mother. Dementia: Mother and Father. Diabetes mellitus type 1: Mother. Heart disease: Mother. Primary malignant neoplasm of lung: Father. Screenings and Assessments 04/14/24 13:40:00 Result Name Value Comment Phone Call Monitoring Consent Agreed to continue call Phone Verification Patient Information Full name, street address and date of verified CM Program Enrollment Provides verbal consent for enrollment Goals and Interventions Care Plan Progress Note TCM#4- Patient states she is 'doing okay.' Notes the SOB and 'eye sensation' after taking Entresto has resolved. Notes she still has some pain, primarily to her side and incision site. Takes Tylenol, states effective. Patient did get a new pair of leggins to help with comfort of incision area, they did not relieve any more discomfort than any other pants she has. Patient notes she just places a gauze over the area for a protective barrier, that seems to work okay. Patient denies any drainage from incision. Denies fever or chills. Patient notes some redness to incision site at times, if pants have been rubbing on the area. Patient notes bowels are moving normal. Denies urinary issues, notes since skidder driver d/c'd jeana she has not been voiding as much. Patient denies any swelling to LE. Denies other signs of fluid retention. Patient will discuss further with cardiology on 05/17/24. Patient denies any further questions or concerns. Patient has POV 05/30/24, 1 month follow up. Communication Luciana (more content not included)... 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 Referral Reason: Care coordination Case Type: Transition Care Management Risk Score: -- Case Status: Enrolled (April 14, 2024) Date Assigned: April 14, 2024 Assigned By: Junaid Keys Date Enrolled: April 14, 2024 Assigned Primary Personnel: Junaid Keys Assigned Secondary Personnel: -- Case Physician: Issac Conway MD Ongoing Abdominal pain, right lower quadrant Anemia Arthritis Asthma B12 deficiency Blister of hand BMI 31.0-31.9,adult Bronchiectasis Bronchitis Chronic obstructive pulmonary disease Chronic respiratory failure with hypoxia Controlled type 2 diabetes mellitus without complication, without long-term current use of insulin COPD without exacerbation Cough Fatigue GERD with esophagitis Heart failure History of tobacco use Hospital discharge follow-up Hypoxemia Incarcerated ventral hernia Inguinal hernia Insomnia Malabsorption of iron Obesity Osteopenia Other iron deficiency anemia Pulmonary hypertension Status post repair of ventral hernia Steatohepatitis, non-alcoholic Systolic murmur Thrombocytosis Vitamin D deficiency Historical No qualifying data Procedure/Surgical History Cardiac catheterization (02/17/2023), Abdominal hernia, Cardiac catheter, Cholecystectomy, Colonoscopy, EGD (esophagogastroduodenos copy) and closure of duodenal fistula, Exploratory laparotomy, MELVIN BSO - Total abdominal hysterectomy and bilateral salpingo-oophorectomy. Home Medications albuterol-ipratropium Inh Ana Cristina 3 mL UD, See Instructions amLODIPine 10 mg Tab, 10 mg= 1 tab(s), Oral, Daily, 3 refills aspirin 81 mg Oral EC Tab, 81 mg= 1 tab(s), Oral, Daily atorvastatin 80 mg Tab, 80 mg= 1 tab(s), Oral, Daily, 3 refills Breo Ellipta 200 mcg-25 mcg/inh inhalation powder, 1 puff(s), Inhalation, Daily, 5 refills, Not taking Entresto 24 mg-26 mg oral tablet, 1 tab(s), Oral, BID esomeprazole 40 mg Cap-EC, 40 mg= 1 cap(s), Oral, BID, 3 refills Farxiga, 10 mg, Oral, Daily, Not taking: YET TO [employer] RX furosemide 40 mg Tab, 40 mg= 1 tab(s), Oral, Daily, 4 refills Misc DME Prescription nebulizer supplies, See Instructions, Still taking, not as prescribed: KAMALJIT ADMITS SHE HAS NOT TAKEN MEDICATIONS YET TODAY AND IS NOT GOING TO TAKE UNTIL 04/16 IN ORDER TO 'START FRESH' Patient seems to be non-compliant with medication education was provided nitroglycerin, See Instructions Potassium Chloride (Ugm-Zznk-Zmh 10) 10 mEq oral tablet, extended release, 10 mEq, Oral, Daily, 3 refills Zofran 4 mg Tab, 4 mg= 1 tab(s), Oral, q8hr Allergies Biaxin (Unknown) Cipro (Unknown) Keflex (Unknown) amoxicillin (Unknown) atenolol (Unknown) doxycycline (Unknown) sulfa drugs (Unknown) Social History Alcohol - Denies Alcohol Use, 02/22/2023 Household alcohol concerns: No., 02/15/2024 Substance Abuse - Denies Substance Abuse, 01/13/2023 Household substance abuse concerns: No., 01/13/2023 Tobacco - Medium Risk, 01/13/2023 10 or more cigarettes (1/2 pack or more)/day in last 30 days Tobacco Use:. Never Smokeless Tobacco Use:. Cigarettes, 1.5 per day. Started age 17.0 Years. Previous treatment: None. Ready to change: No. Household tobacco concerns: No. Yes, 04/25/2024 Family History Acute myocardial infarction: Father. Alzheimer's disease: Mother. Dementia: Mother and Father. Diabetes mellitus type 1: Mother. Heart disease: Mother. Primary malignant neoplasm of lung: Father. Screenings and Assessments 04/14/24 13:40:00 Result Name Value Comment Phone Call Monitoring Consent Agreed to continue call Phone Verification Patient Information Full name, street address and date of verified CM Program Enrollment Provides verbal consent for enrollment Goals and Interventions Care Plan Progress Note TCM#3- Patient states she is 'a little better.' Overall she feels the only problem she is having is finding comfortable pants. Patient notes when sitting her pants can become uncomfortable. CN discussed different styles of pants that may be more comfortable. She notes she no longer has to wear her binder. She does note some pain every once in a while. She takes regular Tylenol as needed and it is effective. Patient denies any drainage from incision. Note the insertion site for LICHA drain is now healed. Patient denies any fever or chills. Comfort measures discussed with patient. Reviewed lifting restrictions of no > 10 lbs for 4-6 weeks post-op. Patient does not have BP monitor at home. Notes she feels a sensation in her eyes after taking Entresto, she can't explain. On occasion she notes a SOB like' feeling. Denies lightheadedness or dizziness. Patient denies any weight gain or edema. Patient notes she has never been able to sleep on her back d/t 'chest discomfort.' Notes she has been sleeping co (more content not included)... Normal [facility] Family Medicine Office/Clini c Noteon 04-25-2024 Family Medicine Office/Clinic Note Family Medicine Office/Clinic Note HPI Staff Johanna is a 69 year old female presenting for [facility] hospital follow up TCM: Hospital: [facility] Admission date: 04/07/24 Discharge date: 04/13/24 Symptoms the patient presented with: hernia surgery Current concerns: just tired/exhausted all the time, doesn't have any energy History of Present Illness Patient presents for follow-up after ventral hernia surgery. Requesting records from discharge. Patient states she was in the ICU for a day. Patient was discharged to our care. Patient had a LICHA drain. This was recently pulled. Patient states that she is very tired. Patient is asking for a little bit of steroids to perk her up. No other concerns. Review of Systems PHQ Score Initial Depression Screen Score: 1 SCORE Physical Exam Vitals & Measurements T: 37.3 ?C(Temporal Artery) HR: 80(Peripheral) RR: 18 BP: 132/60 SpO2: 96% HT: 59 in HT: 151 cm WT: 70.8 kg WT: 155.76 lb BMI: 31.05 General: alert, no acute distress ENMT: oral mucosa moist, Cardiovascular: regular rate and rhythm, normal peripheral perfusion Respiratory: Lungs CTA, respirations non labored Extremities: no deformity, no trauma Neurological: oriented x 4, LOC appropriate for age, CN II-XII intact, motor strength equal & normal bilaterally, speech normal Abdomen: Soft, Nontender, Non-distended, + BS Assessment/Plan 1. Hospital discharge follow-up (Z09: Encounter for follow-up examination after completed treatment for conditions other than malignant neoplasm) Reviewed TCM call. Will request discharge records. Patient continues to heal well. 2. Status post repair of ventral hernia (Z98.890: Other specified postprocedural states) Healing well. Follow-up with surgeon in 1 year. Advised the patient that the fatigue is likely as she is still healing. Encouraged the patient to get up and move more. Also on further discussion the patient has had a change in sleep-wake cycle. Encouraged the patient to use her trazodone to help and to not sleep during the day. Use of Tylenol to help with the pain. 3. BMI 31.0-31.9,adult (Z68.31: Body mass index [BMI] 31.0-31.9, adult) BMI education given. Ordered: Body Mass Index (BMI) documented 3008F Current tobacco smoker 1034F Depression Screening Negative 3352F Most recent diastolic blood pressure <80 mm Hg 3078F Patient screen for fall risk: no falls in last year or 1 fall with no injury in last year 1101F Systolic BP 130-139 mm Hg (Most Recent) 3075F 4. Class 1 obesity due to excess calories in adult (E66.09: Other obesity due to excess calories) Diet and exercise advised. Ordered: Body Mass Index (BMI) documented 3008F Current tobacco smoker 1034F Depression Screening Negative 3352F Most recent diastolic blood pressure <80 mm Hg 3078F Patient screen for fall risk: no falls in last year or 1 fall with no injury in last year 1101F Systolic BP 130-139 mm Hg (Most Recent) 3075F 5. Smoker (F17.200: Nicotine dependence, unspecified, uncomplicated) Please stop smoking. Ordered: Body Mass Index (BMI) documented 3008F Current tobacco smoker 1034F Depression Screening Negative 3352F Most recent diastolic blood pressure <80 mm Hg 3078F Patient screen for fall risk: no falls in last year or 1 fall with no injury in last year 1101F Systolic BP 130-139 mm Hg (Most Recent) 3075F Orders: trazodone, 50 mg = 1 tab(s), Oral, Once a day (at bedtime), # 30 tab(s), Refills(s) 0, Pharmacy: [facility], 151, cm, 02/15/24 15:05:00 EDT, Height/Length Dosing, 72.7, kg, 02/15/24 15:05:00 EDT, Weight Dosing Follow-up No qualifying data available Patient Education BMI for Adults Problem List/Past Medical History Ongoing Abdominal pain, right lower quadrant Anemia Arthritis Asthma B12 deficiency Blister of hand BMI 31.0-31.9,adult Bronchiectasis Bronchitis Chronic obstructive pulmonary disease Chronic respiratory failure with hypoxia Controlled type 2 diabetes mellitus without complication, without long-term current use of insulin COPD without exacerbation Cough Fatigue GERD with esophagitis Heart failure History of tobacco use Hospital discharge follow-up Hypoxemia Incarcerated ventral hernia Inguinal hernia Insomnia Malabsorption of iron Obesity Osteopenia Other iron deficiency anemia Pulmonary hypertension Status post repair of ventral hernia Steatohepatitis, non-alcoholic Systolic murmur Thrombocytosis Vitamin D deficiency Historical No qualifying data Procedure/Surgical History Cardiac catheterization (02/17/2023), Abdominal hernia, Cardiac catheter, Cholecystectomy, Colonoscopy, EGD (esophagogastroduodenos copy) and closure of duodenal fistula, Exploratory laparotomy, MELVIN BSO - Total abdominal hysterectomy and bilateral salpingo-oophorectomy. Medications albuterol-ipratropium Inh Ana Cristina 3 mL UD, See Instructions amLODIPine 10 mg Tab, 10 mg= 1 tab(s), Oral, Daily, 3 refills aspirin 81 (more content not included)... Normal [facility] Comment on above: Result Comment: Elec tronically Signed By: Man GUY, Issac Sam\.br\Date and Time Signed: 04/25/24 14:12 EDT [place] 04-21-2024 [facility] Office Visit (URIEL ) JOHANNA MACDONALD ([id number]) 1955 F Date Time Provider Department 04/21/24 11:00 AM MARÍA GUMZAN During your visit today, we recorded the following information about you: Temperature Pulse Blood pressure Weight 98.1 degrees 77/minute 143/52 77.1 kg Height 1.499 m Jayashree Kirkland MA 04/21/2024 10:22 AM Signed What is the reason for your visit today? Post op Who is your referring physician? Dr. Guzman Are you having poor oral intake? NO Have you had unintentional weight loss of 15 lbs/7 Kg in the last 3-6 months? NO Bowels: regular Wound: clean AND dry Temperature: No Drains: Yes María East APRN.CNP 04/21/2024 11:42 AM Signed [facility] Clinic Date: April 21, 2024 Johanna Macdonald 69 year old female CHIEF COMPLAINT: Patient presents for LICHA drain removal. HPI: Here for LICHA drain removal after robotic converted to open bilateral TAR, incisional hernia repair, implantation of 30 cm x 30 c Prolene mesh and excision of old abdominal wall mesh on 04/07/[address] Orourke. Patient's inpatient course was complicated by ABLA requiring 3 total units of pRBCs, transfer to the SICU, antibiotics for concern for PNA and cardiology consult for CHF management. Patient is to continue following with home cardiology for management and refills on Entresto. Has appointment with skidder driver early May. Patient has one LICHA drain in place with serosanguinous fluid and output of <30 ml/day. Pain: Occasional pains. Tylenol PRN. Wearing abdominal binder daily. Incisional Drainage: Denies Incisional Erythema: Denies Fever/Chills: Denies Increased Heart Rate: Denies Constipation: Denies Diarrhea: Denies Nausea/Vomiting: Denies Difficulty Voiding: Denies Decreased Urine Output: Denies Shortness of Breath: Denies Cough / Wheezing: Denies Calf/Thigh pain or swelling: Denies Current Diet: Low-fiber GI soft Present Activity level: Walking, some daily activities (dishes, cooking) Surgery Date and Procedure: 04/07/2024 1. Robotic converted to open right myofascial advancement flap 2. Open left myofascial advancement flap 3. Repair of recurrent incarcerated incisional hernia 4. Implantation of 30 cm x 30 cm Prolene mesh 5. Excision of old abdominal wall mesh Randomized Controlled Trial: Robotic versus Open Ventral Hernia Repair (ROVHR) Trial Current Medications: Current Outpatient Medications Medication Sig Dispense Refill dapagliflozin propanediol (FARXIGA) 10 mg tablet Take 1 tablet by mouth daily with breakfast. sacubitril-valsartan (ENTRESTO) 24-26 mg tablet Take 1 tablet by mouth two times a day. 60 tablet 0 metFORMIN (GLUCOPHAGE) 500 mg tablet Take 1 tablet every day by oral route for 90 days. ipratropium-albuterol (DUONEB) 0.5 mg-3 mg(2.5 mg base)/3 mL nebu INHALE 3 (THREE) mls BY MOUTH via NEBULIZER FOUR TIMES DAILY atorvastatin (LIPITOR) 80 mg tablet Take 1 tablet by mouth daily at bedtime. potassium chloride (K-TAB) 10 mEq tablet Take 1 tablet by mouth every 48 hours. esomeprazole (NEXIUM) 40 mg capsule Take 40 mg by mouth two times a day. isosorbide mononitrate ER (IMDUR) 30 mg 24 hr tablet Take 1 tablet by mouth every morning. aspirin, enteric coated (ASPIRIN, ENTERIC COATED) 81 mg EC tablet in the morning. amLODIPine (NORVASC) 10 mg tablet Take 10 mg by mouth once daily. furosemide (LASIX) 40 mg tablet Take 40 mg by mouth once daily. No current facility-administered medications for this visit. REVIEW OF SYSTEMS: CONSTITUTIONAL: Patient denies fevers, chills, sweats CARDIOVASCULAR: Patient denies chest pains, palpitations RESPIRATORY: No dyspnea on exertion, no wheezing or cough. GI: No diarrhea. No constipation. No nausea/vomiting. MUSCULOSKELETAL: No new myalgias or arthralgias. DERMATOLOGIC: Patient denies any rashes or skin changes. PHYSICAL EXAM: BP 143/52 Pulse 77 Temp 36.7 ?C (98.1 ?F) (Temporal) Ht 149.9 cm (4' 11 ) Wt 77.1 kg (170 lb) BMI 34.34 kg/m? GENERAL: No apparent distress. Pt is alert and oriented x3. LUNGS: Lungs clear and equal. No wheezing HEART: Regular rate and rhythm without murmur. No leg edema ABDOMEN: Soft, nontender, and nondistended. Positive bowel sounds. L LICHA drain with serosanguinous fluid. EXTREMITIES: Without any cyanosis, clubbing, rash, lesions or edema. INCISIONS: Clean, dry, intact, well approximated. No s/s of infection. SURGICAL PATHOLOGY: N/A ASSESSMENT/PLAN: 1. Postoperative visit - ICD9: V58.49, ICD10: Z48.89 -Recovering well at post op week 2 -LICHA drain removed without difficulty -December d/c abdominal binder or wear PRN for comfort -Increase activity as tolerated -Plan for follow up in 1 year, CT abd/pel to be completed prior to appointment María Guzman, MSN, [employer] April 21, 2024 Allergies As (more content not included)... 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 Referral Reason: Care coordination Case Type: Transition Care Management Risk Score: -- Case Status: Enrolled (April 14, 2024) Date Assigned: April 14, 2024 Assigned By: Junaid Keys Date Enrolled: April 14, 2024 Assigned Primary Personnel: Junaid Keys Assigned Secondary Personnel: -- Case Physician: Issac Conway MD Problems Ongoing Abdominal pain, right lower quadrant Anemia Arthritis Asthma B12 deficiency Blister of hand BMI 31.0-31.9,adult Bronchiectasis Bronchitis Chronic obstructive pulmonary disease Chronic respiratory failure with hypoxia Controlled type 2 diabetes mellitus without complication, without long-term current use of insulin COPD without exacerbation Cough Fatigue GERD with esophagitis Heart failure History of tobacco use Hypoxemia Incarcerated ventral hernia Inguinal hernia Insomnia Malabsorption of iron Obesity Osteopenia Other iron deficiency anemia Pulmonary hypertension Steatohepatitis, non-alcoholic Systolic murmur Thrombocytosis Vitamin D deficiency Historical No qualifying data Procedure/Surgical History Cardiac catheterization (02/17/2023), Abdominal hernia, Cardiac catheter, Cholecystectomy, Colonoscopy, EGD (esophagogastroduodenos copy) and closure of duodenal fistula, Exploratory laparotomy, MELVIN BSO - Total abdominal hysterectomy and bilateral salpingo-oophorectomy. Home Medications albuterol-ipratropium Inh Ana Cristina 3 mL UD, See Instructions, Still taking, not as prescribed: PATINT ADMITS SHE HAS NOT TAKEN MEDICATIONS YET TODAY AND IS NOT GOING TO TAKE UNTIL 04/16 IN ORDER TO 'START FRESH' Patient seems to be non-compliant with medication education was provided amLODIPine 10 mg Tab, 10 mg= 1 tab(s), Oral, Daily, 3 refills, Still taking, not as prescribed: PATINT ADMITS SHE HAS NOT TAKEN MEDICATIONS YET TODAY AND IS NOT GOING TO TAKE UNTIL 04/16 IN ORDER TO 'START FRESH' Patient seems to be non-compliant with medication education was provided aspirin 81 mg Oral EC Tab, 81 mg= 1 tab(s), Oral, Daily, Still taking, not as prescribed: PATINT ADMITS SHE HAS NOT TAKEN MEDICATIONS YET TODAY AND IS NOT GOING TO TAKE UNTIL 04/16 IN ORDER TO 'START FRESH' Patient seems to be non-compliant with medication education was provided atorvastatin 80 mg Tab, 80 mg= 1 tab(s), Oral, Daily, 3 refills, Still taking, not as prescribed: PATINT ADMITS SHE HAS NOT TAKEN MEDICATIONS YET TODAY AND IS NOT GOING TO TAKE UNTIL 04/16 IN ORDER TO 'START FRESH' Patient seems to be non-compliant with medication education was provided Breo Ellipta 200 mcg-25 mcg/inh inhalation powder, 1 puff(s), Inhalation, Daily, 5 refills, Still taking, not as prescribed: PATINT ADMITS SHE HAS NOT TAKEN MEDICATIONS YET TODAY AND IS NOT GOING TO TAKE UNTIL 04/16 IN ORDER TO 'START FRESH' Patient seems to be non-compliant with medication education was provided Entresto 24 mg-26 mg oral tablet, 1 tab(s), Oral, BID, Still taking, not as prescribed: PATINT ADMITS SHE HAS NOT TAKEN MEDICATIONS YET TODAY AND IS NOT GOING TO TAKE UNTIL 04/16 IN ORDER TO 'START FRESH' Patient seems to be non-compliant with medication education was provided esomeprazole 40 mg Cap-EC, 40 mg= 1 cap(s), Oral, BID, 3 refills, Still taking, not as prescribed: PATINT ADMITS SHE HAS NOT TAKEN MEDICATIONS YET TODAY AND IS NOT GOING TO TAKE UNTIL 04/16 IN ORDER TO 'START FRESH' Patient seems to be non-compliant with medication education was provided Farxiga, 10 mg, Oral, Daily, Not taking: YET TO [employer] furosemide 40 mg Tab, 40 mg= 1 tab(s), Oral, Daily, 4 refills, Still taking, not as prescribed: PATINT ADMITS SHE HAS NOT TAKEN MEDICATIONS YET TODAY AND IS NOT GOING TO TAKE UNTIL 04/16 IN ORDER TO 'START FRESH' Patient seems to be non-compliant with medication education was provided Misc DME Prescription nebulizer supplies, See Instructions, Still taking, not as prescribed: KAMALJIT ADMITS SHE HAS NOT TAKEN MEDICATIONS YET TODAY AND IS NOT GOING TO TAKE UNTIL 04/16 IN ORDER TO 'START FRESH' Patient seems to be non-compliant with medication education was provided nitroglycerin, See Instructions, Still taking, not as prescribed: KAMALJIT ADMITS SHE HAS NOT TAKEN MEDICATIONS YET TODAY AND IS NOT GOING TO TAKE UNTIL 04/16 IN ORDER TO 'START FRESH' Patient seems to be non-compliant with medication education was provided oxycodone, 5 mg, Oral, q6hr, PRN, Not taking: HAS NOT FILLED RX Potassium Chloride (Ktw-Lwbk-Lyq 10) 10 mEq oral tablet, extended release, 10 mEq, Oral, Daily, 3 refills, Still taking, not as prescribed: KAMALJIT ADMITS SHE HAS NOT TAKEN MEDICATIONS YET TODAY AND IS NOT GOING TO TAKE UNTIL 04/16 IN ORDER TO 'START FRESH' Patient seems to be non-compliant with medication education was provided traZODONE 50 mg Tab, 50 mg= 1 tab(s), Oral, Once a day (at bedtime), Still taking, not as prescribed: KAMALJIT ADMITS SHE HAS NOT (more content not included)... Normal [facility] 04-14-20 [facility] Case Information Case Priority: None Programs: -- Referral Source: 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 Referral Reason: Care coordination Case Type: Transition Care Management Risk Score: -- Case Status: Enrolled (April 14, 2024) Date Assigned: April 14, 2024 Assigned By: Junaid Keys Date Enrolled: April 14, 2024 Assigned Primary Personnel: Junaid Keys Assigned Secondary Personnel: -- Case Physician: Issac Conway MD Ongoing Abdominal pain, right lower quadrant Anemia Arthritis Asthma B12 deficiency Blister of hand BMI 31.0-31.9,adult Bronchiectasis Bronchitis Chronic obstructive pulmonary disease Chronic respiratory failure with hypoxia Controlled type 2 diabetes mellitus without complication, without long-term current use of insulin COPD without exacerbation Cough Fatigue GERD with esophagitis Heart failure History of tobacco use Hypoxemia Incarcerated ventral hernia Inguinal hernia Insomnia Malabsorption of iron Obesity Osteopenia Other iron deficiency anemia Pulmonary hypertension Steatohepatitis, non-alcoholic Systolic murmur Thrombocytosis Vitamin D deficiency Historical No qualifying data Procedure/Surgical History Cardiac catheterization (02/17/2023), Abdominal hernia, Cardiac catheter, Cholecystectomy, Colonoscopy, EGD (esophagogastroduodenos copy) and closure of duodenal fistula, Exploratory laparotomy, MELVIN BSO - Total abdominal hysterectomy and bilateral salpingo-oophorectomy. Home Medications albuterol-ipratropium Inh Ana Cristina 3 mL UD, See Instructions amLODIPine 10 mg Tab, 10 mg= 1 tab(s), Oral, Daily, 3 refills aspirin 81 mg Oral EC Tab, 81 mg= 1 tab(s), Oral, Daily atorvastatin 80 mg Tab, 80 mg= 1 tab(s), Oral, Daily, 3 refills Breo Ellipta 200 mcg-25 mcg/inh inhalation powder, 1 puff(s), Inhalation, Daily, 5 refills Entresto 24 mg-26 mg oral tablet, 1 tab(s), Oral, BID, Not taking esomeprazole 40 mg Cap-EC, 40 mg= 1 cap(s), Oral, BID, 3 refills furosemide 40 mg Tab, 40 mg= 1 tab(s), Oral, Daily, 4 refills metformin 500 mg Tab, 1000 mg= 2 tab(s), Oral, BID, 3 refills Misc DME Prescription nebulizer supplies, See Instructions nitroglycerin, See Instructions Potassium Chloride (Ias-Wybo-Eup 10) 10 mEq oral tablet, extended release, 10 mEq, Oral, Daily, 3 refills traZODONE 50 mg Tab, 50 mg= 1 tab(s), Oral, Once a day (at bedtime) Allergies Biaxin (Unknown) Cipro (Unknown) Keflex (Unknown) amoxicillin (Unknown) atenolol (Unknown) doxycycline (Unknown) sulfa drugs (Unknown) Social History Alcohol - Denies Alcohol Use, 02/22/2023 Household alcohol concerns: No., 02/15/2024 Substance Abuse - Denies Substance Abuse, 01/13/2023 Household substance abuse concerns: No., 01/13/2023 Tobacco - Medium Risk, 01/13/2023 10 or more cigarettes (1/2 pack or more)/day in last 30 days Tobacco Use:. Never Smokeless Tobacco Use:. Cigarettes, 1.5 per day. Started age 17.0 Years. Previous treatment: None. Ready to change: No. Household tobacco concerns: No. Yes, 03/28/2024 Family History Acute myocardial infarction: Father. Alzheimer's disease: Mother. Dementia: Mother and Father. Diabetes mellitus type 1: Mother. Heart disease: Mother. Primary malignant neoplasm of lung: Father. Screenings and Assessments 04/14/24 13:40:00 Result Name Value Comment Phone Call Monitoring Consent Agreed to continue call Phone Verification Patient Information Full name, street address and date of verified CM Program Enrollment Provides verbal consent for enrollment Goals and Interventions Care Plan Progress Note Admit Date: 04/07/24 [facility] Date of Discharge: 04/13/24 Follow-up appointment scheduled? yes, TCM follow up with PCP 04/24/24 at 1500 Did you understand your discharge instructions? yes Are you able to follow them? yes Did you receive new medications? yes, Tylenol 325 mg 2 tab q 6 hr PRN up to 5 days, Farxiga 10 mg QD, oxycodone IR 5 mg q6 hr up to 5 days, Entresto 24/26 mg BID Have you filled the Rx's? ' is picking them up today' Are you taking them as prescribed? has not taken them yet today Are you having difficulty eating or swallowing your pills? no Are you having any stomach upset, diarrhea or constipation? c/o nausea, is asking that Dr. Conway send RX to [facility] pharmacy (message sent) How are you sleeping? good Are you having any pain? yes, 04/25 abdominal pain, same as when d/c Do you have everything you need at home to care for yourself? yes Do you have Home Health? Lauren is working on pt case, not yet met with patient, patient spoke with nurse 04/13 but can not remember conversation. Lauren number provided to patient per note 04/13. Patient returned call for initial Transitional Care Management Program. Moderate readmission risk. Reviewed d/c summary and dx of: ventral hernia without obstruction or gangrene, acute HF w (more content not included)... Normal [facility] ALLIED HEALTHon 04-13-2024 ALLIED HEALTH HNO ID: [id number] Author: YONY LARA Chaplain Service: Spiritual Care Author Type: [employer] Type: Allied Health Filed: 04/13/2024 14:31 Note Text: SPIRITUALCARE Spiritual Care Visit- Brief Note Name: Johanna Macdonald Date: April 13, 2024 Notes: rounds: introduced myself to the patient and she shared she is discharging shortly. She thanked me for the visit and I wished her well. Will follow up as able. SIGNATURE: Chaplain Conrado PATIENT NAME: Johanna Macdonald DATE: April 13, 2024 TIME: 2:30 PM This is an electronically created document. IF PRINTED, PLEASE DO NOT REMOVE FROM THE CHART OR MODIFY PRINTED COPY. Normal [facility] Basic metabolic 2000 panelon 04-13-2024 Anion gap [Moles/Vol] 13 mmol/L Normal 8-15 [facility] Comment on above: Order Comment: Speci men Type: BLOOD SPECIMEN Ordering Facility: [facility] Address: [address] [place] [address] Performed By: #### 1 9123-9, HSTNT, 2777-1, 65010-1, 84191-9 #### [facility] CLIA [id number] [address] [place] [place] [address] [place] Calcium [Mass/Vol] 9.0 mg/dL Normal 8.5-10.2 [facility] Comment on above: Order Comment: Speci men Type: BLOOD SPECIMEN Ordering Facility: [facility] Address: [address] [place] [address] Performed By: #### 1 9123-9, HSTNT, 2777-1, 60239-0, 32545-5 #### [facility] CLIA [id number] [address] [place] [address] [place] Chloride [Moles/Vol] 102 mmol/L Normal 98-107 [facility] Comment on above: Order Comment: Speci men Type: BLOOD SPECIMEN Ordering Facility: [facility] Address: [address] [place] [address] Performed By: #### 1 9123-9, HSTNT, 2777-1, 88685-1, 75332-7 #### [facility] CLIA [id number] [address] [place] [address] [place] CO2 [Moles/Vol] 25 mmol/L Normal 22-30 [facility] Comment on above: Order Comment: Speci men Type: BLOOD SPECIMEN Ordering Facility: [facility] Address: [address] [place] [address] Performed By: #### 1 9123-9, HSTNT, 2777-1, 94336-2, 00979-8 #### [facility] CLIA [id number] [address] [place] [address] [place] Creatinine [Mass/Vol] 0.61 mg/dL Normal 0.58-0.96 [facility] Comment on above: Order Comment: Speci men Type: BLOOD SPECIMEN Ordering Facility: [facility] Address: [address] [place] [address] Performed By: #### 1 9123-9, HSTNT, 2777-1, 78551-8, 27377-1 #### [facility] CLIA [id number] [address] [place] [address] [place] Creatinine and Glomerular filtration rate.predicted panel (S/P/Bld) 97 mL/min/1.73m??? Normal >=60 [facility] Comment on above: Order Comment: Speci men Type: BLOOD SPECIMEN Ordering Facility: [facility] Address: [address] [place] [address] Result Comment: Kayli mated Glomerular Filtration Rate (eGFR) is calculated using the 2020 CKD-EPI creatinine equation. This equation utilizes serum creatinine, sex, and age as parameters. The creatinine assay has traceable calibration to isotope dilution-mass spectrometry. Refer to KDIGO guidelines for clinical interpretation. In patients with unstable renal function, e.g. those with acute kidney injury, the eGFR may not accurately reflect actual GFR. Performed By: #### 1 9123-9, HSTNT, 2777-1, 27642-4, 70063-8 #### [facility] CLIA [id number] [address] [place] [address] [place] Glucose [Mass/Vol] 249 mg/dL High 74-99 [facility] Comment on above: Order Comment: Peter men Type: BLOOD SPECIMEN Ordering Facility: [facility] Address: [address] [place] [address] Result Comment: The [place] [employer] (ADA) provides guidance for cutoff values for fasting glucose and random glucose. The ADA defines fasting as no caloric intake for at least 8 hours. Fasting plasma glucose results between 100 to 125 mg/dL indicate increased risk for diabetes (prediabetes). Fasting plasma glucose results greater than or equal to 126 mg/dL meet the criteria for diagnosis of diabetes. In the absence of unequivocal hyperglycemia, results should be confirmed by repeat testing. In a patient with classic symptoms of hyperglycemia or hyperglycemic crisis, random plasma glucose results greater than or equal to 200 mg/dL meet the criteria for diagnosis of diabetes. Reference: Standards of Medical Care in Diabetes 2016, [place] [employer]. Diabetes Care. 2016.39(Suppl 1). Performed By: #### 1 9123-9, HSTNT, 2777-1, 18118-0, 88522-4 #### [facility] CLIA [id number] [address] [place] [address] [place] Potassium [Moles/Vol] 4.2 mmol/L Normal 3.7-5.1 [facility] Comment on above: Order Comment: Speci men Type: BLOOD SPECIMEN Ordering Facility: [facility] Address: [address] [place] [address] Performed By: #### 1 9123-9, HSTNT, 2777-1, 56069-3, 34813-2 #### [facility] CLIA [id number] [address] [place] [address] [place] Sodium [Moles/Vol] 140 mmol/L Normal 136-144 [facility] Comment on above: Order Comment: Speci men Type: BLOOD SPECIMEN Ordering Facility: [facility] Address: [address] [place] [address] Performed By: #### 1 9123-9, HSTNT, 2776-1, 13689-7, 54140-3 #### [facility] CLIA [id number] [address] [place] [address] [place] Urea nitrogen [Mass/Vol] 12 mg/dL Normal 7-21 [facility] Comment on above: Order Comment: Speci men Type: BLOOD SPECIMEN Ordering Facility: [facility] Address: [address] [place] [address] Performed By: #### 1 9123-9, HSTNT, 2776-, 08108-1, 90032-0 #### [facility] CLIA [id number] [address] [place] [address] [place] CBC W Auto Differential pane l (Bld)on 04-13-2024 Basophils (Bld) [#/Vol] 0.08 10*3/uL Normal <0.11 [facility] Comment on above: Order Comment: Speci men Type: BLOOD SPECIMEN Ordering Facility: [facility] Address: [address] [place] [address] Performed By: #### 1 9123-9, HSTNT, 2776-, 00042-2, 87698-6 #### [facility] CLIA [id number] [address] [place] [address] [place] Basophils/100 WBC (Bld) 0.5 % Normal [facility] Comment on above: Order Comment: Speci men Type: BLOOD SPECIMEN Ordering Facility: [facility] Address: [address] [place] [address] Performed By: #### 1 9123-9, HSTNT, 2776-, 57971-0, 76259-4 #### [facility] CLIA [id number] [address] [place] [address] [place] Differential cell count method Nom (Bld) Auto Normal [facility] Comment on above: Order Comment: Speci men Type: BLOOD SPECIMEN Ordering Facility: [facility] Address: [address] [place] [address] Performed By: #### 1 9123-9, HSTNT, 2776-, 50913-0, #### [facility] CLIA [id number] [address] [place] [address] [place] Eosinophils (Bld) [#/Vol] 0.26 10*3/uL Normal <0.46 [facility] Comment on above: Order Comment: Speci men Type: BLOOD SPECIMEN Ordering Facility: [facility] Address: [address] [place] [address] Performed By: #### 1 9123-9, HSTNT, 2776-08, , #### [facility] CLIA [id number] [address] [place] [address] [place] Eosinophils/100 WBC (Bld) 1.7 % Normal [facility] Comment on above: Order Comment: Speci men Type: BLOOD SPECIMEN Ordering Facility: [facility] Address: [address] [place] [address] Performed By: #### 1 9123-9, HSTNT, 2776-08, , #### [facility] CLIA [id number] [address] [place] [address] [place] Erythrocyte distribution width (RBC) [Ratio] 21.1 % High 11.5-15.0 [facility] Comment on above: Order Comment: Speci men Type: BLOOD SPECIMEN Ordering Facility: [facility] Address: [address] [place] [address] Performed By: #### 1 9123-9, HSTNT, 2776-08, , #### [facility] CLIA [id number] [address] [place] [address] [place] Hematocrit (Bld) [Volume fraction] 35.8 % Low 36.0-46.0 [facility] Comment on above: Order Comment: Speci men Type: BLOOD SPECIMEN Ordering Facility: [facility] Address: [address] [place] [address] Performed By: #### 1 9123-9, HSTNT, 2777-1, 90366-4, 28529-8 #### [facility] CLIA [id number] [address] [place] [address] [place] Hemoglobin (Bld) [Mass/Vol] 11.7 g/dL Normal 11.5-15.5 [facility] Comment on above: Order Comment: Speci men Type: BLOOD SPECIMEN Ordering Facility: [facility] Address: [address] [place] [address] Performed By: #### 1 9123-9, HSTNT, 2777-1, 54600-8, 23602-4 #### [facility] CLIA [id number] [address] [place] [address] [place] Immature granulocytes (Bld) [#/Vol] 0.67 10*3/uL High <0.10 [facility] Comment on above: Order Comment: Speci men Type: BLOOD SPECIMEN Ordering Facility: [facility] Address: [address] [place] [address] Performed By: #### 1 9123-9, HSTNT, 2777-1, 38044-9, 54788-8 #### [facility] CLIA [id number] [address] [place] [address] [place] Immature granulocytes/100 WBC (Bld) 4.4 % Normal [facility] Comment on above: Order Comment: Speci men Type: BLOOD SPECIMEN Ordering Facility: [facility] Address: [address] [place] [address] Performed By: #### 1 9123-9, HSTNT, 2777-1, 18146-8, 58445-1 #### [facility] CLIA [id number] [address] [place] [address] [place] Lymphocytes (Bld) [#/Vol] 1.27 10*3/uL Normal 1.00-4.00 [facility] Comment on above: Order Comment: Speci men Type: BLOOD SPECIMEN Ordering Facility: [facility] Address: [address] [place] [address] Performed By: #### 1 9123-9, HSTNT, 2777-1, 69493-6, 10340-3 #### [facility] CLIA [id number] [address] [place] [address] [place] Lymphocytes/100 WBC (Bld) 8.4 % Normal [facility] Comment on above: Order Comment: Speci men Type: BLOOD SPECIMEN Ordering Facility: [facility] Address: [address] [place] [address] Performed By: #### 1 9123-9, HSTNT, 2777-1, 51911-4, 59178-8 #### [facility] CLIA [id number] [address] [place] [address] [place] MCH (RBC) [Entitic mass] 26.7 pg Normal 26.0-34.0 [facility] Comment on above: Order Comment: Speci men Type: BLOOD SPECIMEN Ordering Facility: [facility] Address: [address] [place] [address] Performed By: #### 1 9123-9, HSTNT, 2777-1, 27153-5, 48817-3 #### [facility] CLIA [id number] [address] [place] [address] [place] MCHC (RBC) [Mass/Vol] 32.7 g/dL Normal 30.5-36.0 [facility] Comment on above: Order Comment: Speci men Type: BLOOD SPECIMEN Ordering Facility: [facility] Address: [address] [place] [address] Performed By: #### 1 9123-9, HSTNT, 2777-1, 85459-3, 73995-0 #### [facility] CLIA [id number] [address] [place] [address] [place] MCV (RBC) [Entitic vol] 81.7 fL Normal 80.0-100.0 [facility] Comment on above: Order Comment: Speci men Type: BLOOD SPECIMEN Ordering Facility: [facility] Address: [address] [place] [address] Performed By: #### 1 9123-9, HSTNT, 2777-1, 04121-7, 09089-9 #### [facility] CLIA [id number] [address] [place] [address] [place] Monocytes (Bld) [#/Vol] 0.77 10*3/uL Normal <0.87 [facility] Comment on above: Order Comment: Speci men Type: BLOOD SPECIMEN Ordering Facility: [facility] Address: [address] [place] [address] Performed By: #### 1 9123-9, HSTNT, 2777-1, 11140-4, 59402-7 #### [facility] CLIA [id number] [address] [place] [address] [place] Monocytes/100 WBC (Bld) 5.1 % Normal [facility] Comment on above: Order Comment: Speci men Type: BLOOD SPECIMEN Ordering Facility: [facility] Address: [address] [place] [address] Performed By: #### 1 9123-9, HSTNT, 2777-1, 08726-9, 03537-4 #### [facility] CLIA [id number] [address] [place] [address] [place] Neutrophils (Bld) [#/Vol] 12.06 10*3/uL High 1.45-7.50 [facility] Comment on above: Order Comment: Speci men Type: BLOOD SPECIMEN Ordering Facility: [facility] Address: [address] [place], [place] [address] Performed By: #### 1 9123-9, HSTNT, 2777-1, 22583-6, 82990-2 #### [facility] CLIA [id number] [address] [place] [address] [place] Neutrophils/100 WBC (Bld) 79.9 % Normal [facility] Comment on above: Order Comment: Speci men Type: BLOOD SPECIMEN Ordering Facility: [facility] Address: [address] [place] [address] Performed By: #### 1 9123-9, HSTNT, 2777-1, 14509-3, 16292-2 #### [facility] CLIA [id number] [address] [place] [address] [place] Nucleated RBC (Bld) [#/Vol] 10*3/uL Normal <0.01 [facility] Comment on above: Order Comment: Speci men Type: BLOOD SPECIMEN Ordering Facility: [facility] Address: [address] [place] [address] Performed By: #### 1 9123-9, HSTNT, 2777-1, 08307-0, 45593-5 #### [facility] CLIA [id number] [address] [place] [address] [place] Nucleated RBC/100 WBC (Bld) [Ratio] 0.0 /100 WBC Normal [facility] Comment on above: Order Comment: Speci men Type: BLOOD SPECIMEN Ordering Facility: [facility] Address: [address] [place] [address] Performed By: #### 1 9123-9, HSTNT, 2777-1, 77957-9, 64194-4 #### [facility] CLIA [id number] [address] [place] [address] [place] Platelet mean volume (Bld) [Entitic vol] 8.9 fL Low 9.0-12.7 [facility] Comment on above: Order Comment: Speci men Type: BLOOD SPECIMEN [facility] [facility] Address: [address] [place] [address] Performed By: #### 1 9123-9, HSTNT, 2777-1, 49766-9, 06531-0 #### [facility] CLIA [id number] [address] [place] [place] [address] [place] Platelets (Bld) [#/Vol] 466 10*3/uL High 150-400 [facility] Comment on above: Order Comment: Speci men Type: BLOOD SPECIMEN Ordering Facility: [facility] Address: [address] [place] [address] Performed By: #### 1 9123-9, HSTNT, 2777-1, 70074-5, 97248-3 #### [facility] CLIA [id number] [address] [place] [place] [address] [place] RBC (Bld) [#/Vol] 4.38 10*6/uL Normal 3.90-5.20 [facility] Comment on above: Order Comment: Speci men Type: BLOOD SPECIMEN Ordering Facility: [facility] Address: [address] [place] [address] Performed By: #### 1 9123-9, HSTNT, 2777-1, 90264-1, 83193-8 #### [facility] CLIA [id number] [address] [place] [place] [address] [place] WBC (Bld) [#/Vol] 15.11 10*3/uL High 3.70-11.00 [facility] Comment on above: Order Comment: Speci men Type: BLOOD SPECIMEN Ordering Facility: [facility] Address: [address] [place] [address] Performed By: #### 1 9123-9, HSTNT, 2777-1, 39345-5, 88675-1 #### [facility] CLIA [id number] [address] [place] [place] [address] [place] CNDSon 04-13-2024 [facility] HNO ID: [id number] Author: JUJU OROURKE MD Service: General Surgery Author Type: Resident Type: Discharge Summary Filed: 04/18/2024 10:46 Note Text: Attestation signed by Juju Orourke MD at 04/18/2024 10:46 AM Juju Orourke MD GENERAL SURGERY DISCHARGE SUMMARY PATIENT NAME: Johanna Macdonald ADMISSION DATE: 04/07/2024 DISCHARGE DATE: 04/13/2024 ATTENDING PHYSICIAN: Juju Orourke MD Code Status: Not on file Highest Readmission Risk Score: 36 The 30 day readmissions risk score is derived from an internally validated risk model which evaluates patient level characteristics, utilization history, medication orders and lab results up until the day of discharge. Patients with a score of 40 or above are considered highest risk for readmission. Specific patient level drivers will be listed at the bottom of the summary. REASON FOR HOSPITALIZATION: Hernia surgery and recovery OPERATIONS DURING HOSPITALIZATION: 1. Robotic converted to open right myofascial advancement flap 2. Open left myofascial advancement flap 3. Repair of recurrent incarcerated incisional hernia 4. Implantation of 30 cm x 30 cm Prolene mesh 5. Excision of old abdominal wall mesh PROCEDURES DURING HOSPITALIZATION: IV access Intubation for surgery Anesthesia administration KUB, CXR- multiple ECHO EKG CT AP, CT chest HOSPITAL COURSE: Johanna Macdonald is a 69 year old female with obesity (BMI 32), COPD (O2 dependent at home, 2L), CAD, HTN, HLD, CHF (LVEF 40%) and T2DM who presented 04/07/24 for a robotic converted to open ventral hernia repair with mesh by Dr. Orourke. See operative report for surgical details. The patient recovered in PACU and then transferred to a [facility]. Hospital course as follows: 04/08- POD 1. CLD. Buenrostro kept. ABLA on labs (11.2 down to 7.8), also hypotensive. AMET, transfused with 2u pRBC, transferred to SICU for further management. Up to 6L NC, given IV steroids. 1st degree heart block on EKG. 04/09- Additional 1u prbc given. ECHO shows LVEF 52%. CT AP, CT chest done - results show ileus, no PE, concern for PNA. Started on IV meropenum per ICU. 04/10- COUNTER TACKER discontinued, advanced to GIS. HgB stable 9.9. Desaturated overnight while on HFNC. Kept in SICU. 04/11- Diuresing and weaning o2 as able. On 6 L NC. Skilled for home PT. Right drain removed. Remains in SICU. 04/12 - Ongoing diuresis and o2 weaning in SICU. On 3L. Cardiology consult placed for CHF management. 04/13- Transitioned to PO lasix today. Final cards recs: resume home Farxiga today, start Entresto BID, continue home imdur/ASA/statin. Weaned to home O2, 2L continuous. Stable and ready for discharge home with home PT/OT. LICHA drain kept in place - follow up 1 week with surgeon for removal. Patient will need close follow up with home skidder driver for CHF management/refills of Entresto. Active Hospital Problems Diagnosis Date Noted Ventral hernia without obstruction or gangrene 04/07/2024 Acute on chronic heart failure with preserved ejection fraction (HFpEF) ([facility]) 04/12/2024 Pleural effusion 04/11/2024 Acute post-operative pain 04/10/2024 S/P repair of ventral hernia 04/10/2024 Acute on chronic hypoxic respiratory failure ([facility]) 04/10/2024 Hypoxia 04/09/2024 Obesity (BMI 30.0-34.9) 04/07/2024 CAD (coronary artery disease) 03/21/2024 CHF (congestive heart failure) ([facility]) 03/21/2024 COPD (chronic obstructive pulmonary disease) ([facility]) 03/21/2024 Type 2 diabetes mellitus without complication, without long-term current use of insulin (HCC) 03/21/2024 Supplemental oxygen dependent 03/21/2024 HTN (hypertension) 03/21/2024 HLD (hyperlipidemia) 03/21/2024 Resolved Hospital Problems Diagnosis Date Noted Date Resolved Shock, during or resulting from a surgical procedure 04/08/2024 04/13/2024 ABLA (acute blood loss anemia) 04/08/2024 04/13/2024 Transitions of Care Critical Issues: - see above LABS AND PROCEDURES PENDING AT DISCHARGE: No pending results. CONSULTING TEAMS DURING HOSPITALIZATION: Cardiology Treatment Team: Attending Provider: Juju Orourke MD Primary Service: RUI KULKARNI Consulting: Bc Alvarez Consult PATIENT CONDITION AT DISCHARGE: Stable DISCHARGE DISPOSITION: Home with Home Health INFORMATION PROVIDED TO PATIENT: DCI DIET: Low soft-fiber diet: No fresh fruits, whole grains, foods difficult to digest, or vegetables (unless they are well-cooked) ACTIVITY: Lifting restricted to < 10 lbs for 4-6 weeks May shower, do not scrub incision No driving while on narcotics May walk and use stairs as tolerated WOUND/SURGICAL SITE CARE: None ALLERGIES Allergen Reactions Atenolol Anaphylaxis, Unknown Throat swelling. Doxycycline Unknown Pseudoephedrine Intolerance Amoxicillin Itching, Other: (more content not included)... Normal [facility] CONSULT PROGon 04-13-2024 CONSULT PROG HNO ID: [id number] Author: FERNANDO BOSS APRN.JET MECHANIC Service: Cardiovascular Medicine Author Type: Nurse Practitioner Type: Consult Progress Note Filed: 04/13/2024 12:35 Note Text: [facility] CONSULT PROGRESS NOTE (Template ID [id number]) CONSULTING SERVICE: Cardiology: Consult Team PRIMARY SERVICE: General Surgery HOSPITAL DAY: #6 SUBJECTIVE INTERVAL HISTORY: Overnight, patient feeling better. States that her breathing is improved. BP high overnight in the 150s to 170s. 1.8L negative. OBJECTIVE MEDICATIONS: Current Facility-Administered Medications Medication Dose Route Frequency pantoprazole DR 40 mg tab(s) (PROTONIX) 40 mg ORAL DAILY (6 AM) atorvastatin 80 mg tab(s) (LIPITOR) 80 mg ORAL AT BEDTIME dextrose 15 gram/32 mL 15 g (TRUEPLUS) 15 g ORAL PRN Or glucagon 1 mg injection 1 mg INTRAMUSCULAR PRN Or dextrose 10% iv bolus 12.5 g INTRAVENOUS PRN potassium chloride ER 20-40 mEq tab(s) (KLOR-CON) 20-40 mEq ORAL PRN Or potassium chloride iv piggyback 20 mEq/100 mL 20 mEq INTRAVENOUS PRN magnesium sulfate iv piggyback in sterile water 2 g 50 mL 2 g INTRAVENOUS PRN(NO DISPENSE) phosphorus 500 mg tab(s) (K PHOS NEUTRAL) 500 mg ORAL/FEEDING TUBE PRN(NO DISPENSE) ondansetron (PF) 4 mg injection (ZOFRAN) 4 mg INTRAVENOUS q 6 H PRN tamsulosin 0.4 mg cap(s) (FLOMAX) 0.4 mg ORAL AT BEDTIME acetaminophen 650 mg tab(s) (TYLENOL) 650 mg ORAL q 6 H oxyCODONE IR 5-10 mg tab(s) (ROXICODONE) 5-10 mg ORAL q 4 H PRN NaCl 0.9% iv flush bag 20 mL INTRAVENOUS PRN nicotine 21 mg/24 hr 1 Patch (NICODERM) 1 Patch TRANSDERMAL DAILY And nicotine -- REMOVE patch OTHER DAILY And nicotine - verify patch OTHER q 8 H naloxone 0.1 mg injection (NARCAN) 0.1 mg INTRAVENOUS q 2 MIN PRN ipratropium-albuterol 3 mL nebulizer solution (DUONEB) 3 mL INHALATION q 4 H while awake potassium chloride 20-40 mEq oral powder (KLOR-CON) 20-40 mEq ORAL/FEEDING TUBE PRN Or potassium chloride ER 20-40 mEq tab(s) (KLOR-CON) 20-40 mEq ORAL PRN Or potassium chloride iv piggyback 20 mEq/100 mL 20 mEq INTRAVENOUS PRN Or potassium phosphate 15 mmol in NaCl 0.9% 250 mL 15 mmol INTRAVENOUS PRN Or potassium phosphate 30 mmol in NaCl 0.9% 250 mL 30 mmol INTRAVENOUS PRN Or potassium phosphate 45 mmol in NaCl 0.9% 500 mL 45 mmol INTRAVENOUS PRN magnesium sulfate iv piggyback in sterile water 2 g 50 mL 2 g INTRAVENOUS PRN phosphorus 500 mg tab(s) (K PHOS NEUTRAL) 500 mg ORAL/FEEDING TUBE PRN Or sodium phosphate 15 mmol in D5W 250 mL 15 mmol INTRAVENOUS PRN Or sodium phosphate 30 mmol in D5W 250 mL 30 mmol INTRAVENOUS PRN Or sodium phosphate 45 mmol in NaCl 0.9% 250 mL 45 mmol INTRAVENOUS PRN albuterol 2.5 mg /3 mL (0.083 %) 2.5 mg (PROVENTIL) 2.5 mg INHALATION q 4 H PRN prochlorperazine 10 mg injection (COMPAZINE) 10 mg INTRAVENOUS q 6 H PRN budesonide 0.5 mg/2 mL 0.5 mg (PULMICORT) 0.5 mg INHALATION BID iv contrast (radiology procedure) INTRAVENOUS DIRECTED PRN aspirin 81 mg chewable tab(s) 81 mg ORAL DAILY amLODIPine 10 mg tab(s) (NORVASC) 10 mg ORAL DAILY insulin lispro injection (rapid acting) (ADMElog) SUBCUTANEOUS w MEALS insulin lispro injection (rapid acting) (ADMElog) SUBCUTANEOUS AT BEDTIME enoxaparin 40 mg injection (LOVENOX) 40 mg SUBCUTANEOUS q 24 HR sodium chloride 0.9 % (flush) 2-10 mL (BD POSIFLUSH) 2-10 mL INTRAVENOUS DIRECTED PRN And perflutren lipid microspheres 1.1 mg/mL 1.3 mL injection (DEFINITY) 1.3 mL INTRAVENOUS DIRECTED PRN furosemide 40 mg tab(s) (LASIX) 40 mg ORAL DAILY melatonin 3 mg tab(s) 3 mg ORAL DAILY (8 PM) sacubitril-valsartan 24-26 mg 1 tablet (ENTRESTO) 1 tablet ORAL BID dapagliflozin propanediol 10 mg tab(s) (FARXIGA) 10 mg ORAL DAILY isosorbide mononitrate ER 30 mg tab(s) (IMDUR) 30 mg ORAL DAILY PHYSICAL EXAM: 04/13/24 0559 04/13/24 0600 04/13/24 0700 04/13/24 0838 BP: Pulse: (!) 55 (!) 55 80 76 Resp: 18 18 (!) 36 25 Temp: TempSrc: SpO2: 97% 97% 89% 96% Weight: 75.7 kg (166 lb 14.2 oz) General Appearance: Well developed, Well nourished and No distress Lungs: Clear Heart: Regular rate AND rhythm Abdomen: Soft Skin: Warm and Dry Extremities: trace BLE edema Neurologic/Psychiatric: Oriented to time, place AND person Intake/Output Summary (Last 24 hours) at 04/13/2024 0918 Last data filed at 04/13/2024 0700 Gross per 24 hour Intake 2054 ml Output 3545 ml Net -1491 ml TELEMETRY: SR IMAGING: TTE 04/09/2024 CONCLUSIONS: - Technically difficult exam due to post op, bandages/chest tubes/wound, suboptimal positioning, body habitus and COPD. - Exam indication: Hypotension - The abnormal regional wall motion pattern in conjunction with normal regional wall thickness is consistent with a LBBB abnormal conduction delay. - The left ventricle is normal in size. Left ventricular systolic function is normal. EF = 52 ? 5% (visual est.) Grade I left ventricular diastolic dy (more content not included)... Normal [facility] Magnesium SerPl-mCncon 04-13 Magnesium [Mass/Vol] 2.0 mg/dL Normal 1.7-2.3 [facility] Comment on above: Order Comment: Speci men Type: BLOOD SPECIMEN Ordering Facility: [facility] Address: [address] [place] [address] Performed By: #### 1 9123-9, HSTNT, 2777-1, 44106-0, 45115-0 #### [facility] CLIA [id number] [address] [place] [address] [place] [facility] NUTRITIONon 04-13-2024 NUTRITION HNO ID: [id number] Author: CAROLINA ROGERS DTR Service: Nutrition Therapy Author Type: Blanker Operator Type: Nutrition Filed: 04/13/2024 11:33 Note Text: NUTRITION THERAPY KETTLE LOADER NOTE SERVICE DATE: 04/13/2024 SERVICE TIME: 1125 Visit Type: Diet Education;Length of Stay Evaluation Goals Met: Not Met Plan of Care: Supplements: Ensure Max Follow-Up: [facility] Reassessment Nursing Admission Assessment Malnutrition Score: Nutrition Intake: Diet Orders (From admission, onward) Start Ordered 04/10/24 0645 DIET GASTRO INTESTINAL START NOW Question: Gastro Intestinal Answer: FIBER CONTROLLED 04/10/24 0633 04/08/24 1345 SUPPLEMENT/SNACK PROVIDED START NOW Question Answer Comment Supplement 1 (19 years and up) ENSURE MAX CHOCOLATE Supplement 1 Frequency BREAKFAST Supplement 2 (19 years and up) ENSURE MAX CHOCOLATE Supplement 2 Frequency DINNER 04/08/24 1341 Average Daily Calorie Intake (kcal): 572 kcal Average Daily Protein Intake (gm): 21 gm Average Supplement Intake (kcal): 300 kcal Average Supplement Intake (gm): 60 gm Average supplement intake over: 3 days Appetite: Fair GI Symptoms: None Anthropometrics: Weight: 75.7 kg (166 lb 14.2 oz) Body mass index is 33.71 kg/m?. Weight Change: Increased Food Preferences: None MNT Billing: $ Routine Care : 16-30 minutes SIGNATURE: Carolina Rogers DTR PATIENT NAME: Johanna Macdonald DATE: April 13, 2024 TIME: 11:33 AM Normal [facility] PT EDon 04-13-2024 PT ED HNO ID: [id number] Author: CAROLINA ROGERS DTR Service: Nutrition Therapy Author Type: Blanker Operator Type: Patient Education Filed: 04/13/2024 11:34 Note Text: NUTRITION THERAPY PATIENT EDUCATION SERVICE DATE: 04/13/2024 SERVICE TIME: 1124 TOPIC: Diet: Gastrointestinal Soft Diet LEARNING ASSESSMENT Individuals Assessed: Patient Preferred Learning Method: No Preference Barriers to Learning: None Evident LEARNING RESPONSE Instruction Provided to: Patient Patient / Family Response: Performs Independently and Verbalizes Understanding Method of Instruction: Written instruction/Handouts Verbal instruction Material(s) Provided to Patient: Education Materials Provided Nutrition Education [facility]: Guidelines for Gastrointestinal Soft Diet Follow-Up Plan: Patient instructed to call with any further issues Referral (Recommendation): None MNT Billing: $ Routine Care : 16-30 minutes SIGNATURE: Carolina Rogers DTR PATIENT NAME: Johanna Macdonald DATE: April 13, 2024 TIME: 11:33 AM PAGER: Normal [facility] Phosphate SerPl-mCncon 04-13 Phosphate [Mass/Vol] 3.6 mg/dL Normal 2.7-4.8 [facility] Comment on above: Order Comment: Speci men Type: BLOOD SPECIMEN Ordering Facility: [facility] Address: [address] [place] [address] Performed By: #### 1 9123-9, HSTNT, 2777-1, 76911-0, 19018-9 #### [facility] CLIA [id number] [address] [place] [address] OF [facility] THERAPY NTon 04-13-2024 THERAPY NT HNO ID: [id number] Author: CASANDRA OLIVIER, PT Service: Physical Therapy Author Type: Physical Therapist Type: Therapy (PT/OT/Speech/Resp) Filed: 04/13/2024 14:11 Note Text: Physical Therapy Treatment Summary SERVICE DATE: 04/13/2024 SERVICE TIME: 1053 to 1116 ROOM: [place] [address] PT 6 Clicks Score: 18 DISCHARGE RECOMMENDATIONS Home PT Recommended Discharge Equipment: Wheeled Walker ASSESSMENT Response to Therapy Interventions: Good Participation in Activities, Low Activity Tolerance, Labile Vital Signs PRECAUTIONS Abdominal, Fall Risk, Lines/Tubes/Drains Binder, SpO2 > 88% CURRENT HOSPITAL COURSE 69 y.o. F s/p robotic converted to open VHR on 04/07. 04/08: AMET to SICU for hypotension and first degree heart block. Relevant Past Medical History: COPD on 2L at home, CAD, HTN, HLD, CHF, GERD, T2DM HOME LIVING Patient Lives With: Spouse Assistance Available: Part-Time Entry To Home: Stairs, With Rail Number Of Stairs Into Home: 3 Number Of Stairs To Bed/Bath: 0 Equipment Owned: Home Oxygen PRIOR FUNCTIONAL LEVEL Within Functional Limits I ADLs, amb no AD, limited activity tolerance d/t COPD SUBJECTIVE Agreeable to PT. THERAPY DIAGNOSIS Reduced mobility-other TREATMENT INTERVENTIONS Therapeutic Activity (42791), Gait Training (76279) Timed Code Treatment (minutes): 23 Skilled Treatment Time (minutes): 23 TRAINING AND EDUCATION PROVIDED Assistive Device Use, Bed Mobility, Benefits of In-Hospital Mobility, Discharge Planning, Energy Conservation, Equipment, Exercise Program, Expected Functional Level, Gait Pattern, Reduction of Deviations, Positioning, Precautions/Restriction s, Role of Physical Therapy, Sitting Balance, Standing Balance, Transfers, Treatment Protocol THERAPEUTIC SKILLS USED Activity Dosing, Assessment of Tolerance Including Vitals Response to Activity, Cues for Sequencing/Proper Technique for Activity, Cuing Tactile, Cuing Visual, Dual Task Activities, Cuing Verbal, Facilitation of Joint Range of Motion, Management of Critical Lines, Tubes and/or Drains, Movement Facilitation, Muscle Activation Facilitation, Physical Assist, Postural Alignment Correction FUNCTIONAL STATUS Bed Mobility Supine To Sit: Minimal Assistance Scooting: Contact Guard Assistance Transfers Sit To Stand: Contact Guard Assistance Stand To Sit: Contact Guard Assistance Bed to Chair Contact Guard Assistance Bed To Chair Transfer Type: Stepping Gait Contact Guard Assistance Gait Device: IV Pole Gait Distance (feet): 150 ft Stairs GOALS Patient will demonstrate progress with functional mobility to allow safe discharge to home with available support and/or physical assistance. Ambulate Up and Down Steps with: Modified Independent Number of Steps: 3 Device: Rail Rehab Potential: Good Progress Toward Goals: Progressing as expected PLAN PT Frequency: 3 Times Per Week Treatment Interventions: Education, Self Care / Home Management, Energy Conservation Training, Joint Mobility, Strengthening, Functional Mobility Training, Balance Training, Neuromuscular Re-education, Pain Management, Edema Management Plan for Next Visit: Gait Training SIGNATURE: Casandra Olivier, PT PATIENT NAME: Johanna Macdonald DATE: April 13, 2024 TIME: 10:53 AM Normal [facility] XR CHEST 1V FRONTAL PORTon 0 04-13-2024 XR CHEST 1V FRONTAL PORT * * *Final Report* * * DATE OF EXAM: Apr 13 2024 8:42AM ESTELLA 5376 - XR CHEST 1V FRONTAL PORT / PROCEDURE REASON: Post-operative/post-pro cedure assessment * * * * Physician Interpretation * * * * EXAMINATION: CHEST RADIOGRAPH (PORTABLE SINGLE VIEW AP) Exam Date/Time: 04/13/2024 8:42 AM Clinical History: Post-operative/post-pro cedure assessment MQ: [id number] Comparison: 1 day prior RESULT: Lines, tubes, and devices: Lungs and pleura: Hypoinflation with lower zones opacities/atelectasis. Mild blunting CP angle suggesting small effusions Cardiomediastinal silhouette: Stable cardiomediastinal silhouette. Other: . IMPRESSION: See result. Internet Database Specialist: PSCB Transcribe Date/Time: Apr 13 2024 9:58A Dictated by : KATIE MAURICE MD This examination was interpreted and the report reviewed and electronically signed by: KATIE MAURICE MD on Apr 13 2024 9:59AM EST [id number] Normal [facility] CBC W Auto Differential pane l (Bld)on 04-12-2024 Basophils (Bld) [#/Vol] 0.03 10*3/uL Normal <0.11 [facility] Comment on above: Order Comment: Speci men Type: BLOOD SPECIMENOrdering Facility: [facility] Address: [address] [place] [address] Performed By: #### 5 7021-8 ####[facility] [id number] [place] [address] [place] Basophils/100 WBC (Bld) 0.2 % Normal [facility] Comment on above: Order Comment: Speci men Type: BLOOD SPECIMENOrdering Facility: [facility] Address: [address] [place] [address] Performed By: #### 5 7021-8 ####[facility] [id number] [place] [address] [place] Differential cell count method Nom (Bld) Auto Normal [facility] Comment on above: Order Comment: Speci men Type: BLOOD SPECIMENOrdering Facility: [facility] Address: [address] [place] [address] Performed By: #### 5 7021-8 ####[facility] [id number] [place] [address] [place] Eosinophils (Bld) [#/Vol] 0.03 10*3/uL Normal <0.46 [facility] Comment on above: Order Comment: Speci men Type: BLOOD SPECIMENOrdering Facility: [facility] Address: [address] [place] [address] Performed By: #### 5 7021-8 ####[facility] [id number] [facility] [place] [address] [place] Eosinophils/100 WBC (Bld) 0.2 % Normal [facility] Comment on above: Order Comment: Speci men Type: BLOOD SPECIMENOrdering Facility: [facility] Address: [address] [place] [address] Performed By: #### 5 7021-8 ####[facility] [id number] [place] [address] [place] Erythrocyte distribution width (RBC) [Ratio] 20.8 % High 11.5-15.0 [facility] Comment on above: Order Comment: Speci men Type: BLOOD SPECIMENOrdering Facility: [facility] Address: [address] [place] [address] Performed By: #### 5 7021-8 ####[facility] [id number] [place] [address] [place] Hematocrit (Bld) [Volume fraction] 32.2 % Low 36.0-46.0 [facility] Comment on above: Order Comment: Speci men Type: BLOOD SPECIMENOrdering Facility: [facility] Address: [address] [place] [address] Performed By: #### 5 7021-8 ####[facility] [id number] [place] [address] [place] Hemoglobin (Bld) [Mass/Vol] 10.8 g/dL Low 11.5-15.5 [facility] Comment on above: Order Comment: Speci men Type: BLOOD SPECIMENOrdering Facility: [facility] Address: [address] [place] [address] Performed By: #### 5 7021-8 ####[facility] [id number] [place] [address] [place] Immature granulocytes (Bld) [#/Vol] 0.50 10*3/uL High <0.10 [facility] Comment on above: Order Comment: Speci men Type: BLOOD SPECIMENOrdering Facility: [facility] Address: [address] [place] [address] Performed By: #### 5 7021-8 ####[facility] [id number] [place] [address] [place] Immature granulocytes/100 WBC (Bld) 3.7 % Normal [facility] Comment on above: Order Comment: Speci men Type: BLOOD SPECIMENOrdering Facility: [facility] Address: [address] [place] [address] Performed By: #### 5 7021-8 ####[facility] [id number] [place] [address] [place] Lymphocytes (Bld) [#/Vol] 1.31 10*3/uL Normal 1.00-4.00 [facility] Comment on above: Order Comment: Speci men Type: BLOOD SPECIMENOrdering Facility: [facility] Address: [address] [place] [address] Performed By: #### 5 7021-8 ####[facility] [id number] [place] [address] [place] Lymphocytes/100 WBC (Bld) 9.8 % Normal [facility] Comment on above: Order Comment: Speci men Type: BLOOD SPECIMENOrdering Facility: [facility] Address: [address] [place] [address] Performed By: #### 5 7021-8 ####[facility] [id number] [place] [address] [place] MCH (RBC) [Entitic mass] 26.8 pg Normal 26.0-34.0 [facility] Comment on above: Order Comment: Speci men Type: BLOOD SPECIMENOrdering Facility: [facility] Address: [address] [place] [address] Performed By: #### 5 7021-8 ####[facility] [id number] [place] [address] [place] MCHC (RBC) [Mass/Vol] 33.5 g/dL Normal 30.5-36.0 [facility] Comment on above: Order Comment: Speci men Type: BLOOD SPECIMENOrdering Facility: [facility] Address: [address] [place] [address] Performed By: #### 5 7021-8 ####[facility] [id number] [place] [address] [place] MCV (RBC) [Entitic vol] 79.9 fL Low 80.0-100.0 [facility] Comment on above: Order Comment: Speci men Type: BLOOD SPECIMENOrdering Facility: [facility] Address: [address] [place] [address] Performed By: #### 5 7021-8 ####[facility] [id number] [place] [address] [place] Monocytes (Bld) [#/Vol] 0.98 10*3/uL High <0.87 [facility] Comment on above: Order Comment: Speci men Type: BLOOD SPECIMENOrdering Facility: [facility] Address: [address] [place] [address] Performed By: #### 5 7021-8 ####[facility] LABCLIA [id number] [place] [address] [place] Monocytes/100 WBC (Bld) 7.3 % Normal [facility] Comment on above: Order Comment: Speci men Type: BLOOD SPECIMENOrdering Facility: [facility] Address: [address] [place] [address] Performed By: #### 5 7021-8 ####[facility] LABIA [id number] [place] [address] [place] Neutrophils (Bld) [#/Vol] 10.58 10*3/uL High 1.45-7.50 [facility] Comment on above: Order Comment: Speci men Type: BLOOD SPECIMENOrdering Facility: [facility] Address: [address] [place] [address] Performed By: #### 5 7021-8 ####[facility] LABCLIA [id number] [place] [address] [place] Neutrophils/100 WBC (Bld) 78.8 % Normal [facility] Comment on above: Order Comment: Speci men Type: BLOOD SPECIMENOrdering Facility: [facility] Address: [address] [place] [address] Performed By: #### 5 7021-8 ####[facility] LABIA [id number] [place] [address] [place] Nucleated RBC (Bld) [#/Vol] 0.02 10*3/uL High <0.01 [facility] Comment on above: Order Comment: Speci men Type: BLOOD SPECIMENOrdering Facility: [facility] Address: [address] [place] [address] Performed By: #### 5 7021-8 ####[facility] LABIA [id number] [place] [address] [place] Nucleated RBC/100 WBC (Bld) [Ratio] 0.1 /100 WBC Normal [facility] Comment on above: Order Comment: Speci men Type: BLOOD SPECIMENOrdering Facility: [facility] Address: [address] [place] [address] Performed By: #### 5 7021-8 ####[facility] LABIA [id number] [place] [address] [place] Platelet mean volume (Bld) [Entitic vol] 9.1 fL Normal 9.0-12.7 [facility] Comment on above: Order Comment: Speci men Type: BLOOD SPECIMENOrdering Facility: [facility] Address: [address] [place] [address] Performed By: #### 5 7021-8 ####[facility] LABIA [id number] [place] [address] [place] Platelets (Bld) [#/Vol] 428 10*3/uL High 150-400 [facility] Comment on above: Order Comment: Speci men Type: BLOOD SPECIMENOrdering Facility: [facility] Address: [address] [place] [address] Performed By: #### 5 7021-8 ####[facility] LABCLIA [id number] [place] [address] [place] RBC (Bld) [#/Vol] 4.03 10*6/uL Normal 3.90-5.20 [facility] Comment on above: Order Comment: Speci men Type: BLOOD SPECIMENOrdering Facility: [facility] Address: [address] [place] [address] Performed By: #### 5 7021-8 ####[facility] LABCLIA [id number] [place] [address] [place] WBC (Bld) [#/Vol] 13.43 10*3/uL High 3.70-11.00 [facility] Comment on above: Order Comment: Speci men Type: BLOOD SPECIMENOrdering Facility: [facility] Address: [address] [place] [address] Performed By: #### 5 7021-8 ####[facility] LABCLIA [id number] [place] [id number] [facility] OF [place] CONSULTon 04-12-2024 CONSULT HNO ID: [id number] Author: PALMER NAVA MD Service: Cardiovascular Medicine Author Type: Physician Type: Consults Filed: 04/12/2024 20:06 Note Text: [facility] CARDIOVASCULAR MEDICINE CONSULT NOTE (Template ID [id number]) Johanna Macdonald [id number] PRIMARY SERVICE: General Surgery CONSULTING SERVICE: Cardiovascular Medicine: General Consults DATE OF ADMISSION: 04/07/2024 DATE OF CONSULT: 04/12/2024 REASON FOR CONSULT Heart Failure HISTORY OF PRESENT ILLNESS Johanna Macdonald is a 69 year old female with PMH of COPD on 2L at home, CAD s/p PCI in 2018 to RCA and 2022 cath in 2022 shows non obs CAD with 50% lesion to mRCA with mild to mod disease elsewhere, HTN, HLD on crestor, HFimpEF, GERD, T2DM on metformin, and prior incisional hernia rpair with mesh c/b infected MESH who was admitted on 04/07 for robotic converted to open VHR (converted due to serosal injury). On POD1, AMET was called for patient for hypotension and patient was transferred to the SICU. Patient was given a bolus of LR. Patient with worsening anemia and was given 2 units pRBCs on 04/08 and 1 unit on 04/09. Echo obtained on arrival to the SICU and shows LVEF of 52%, normal RV function, small IVC and WMA expected given prior RCA PCI. EKG shows SR with 1st degree AVB and LBBB. CT PE negative. Patient briefly required pressors but was then weaned off. NT pro BNP checked and is 1900 compared to prior of 400. Patient takes POlasix at home and has been off lasix. Weaned down to 6L NC. Weight on admission was 160 pounds. Cardiology consulted for evaluation of heart failure. She is currently in the SICU on 3L nasal canula. Patient has been given lasix 40 mg Q8H for the last 24 hours. Creat stable at 0.65. Patient 3.7 L negative with diuresis. HR is in the 70s and BP in the 130s to 150s. Patient follows with Dr. Gomes in [place] and last saw him 07/2023 during which he recommended to optimize her medical therapy for her risk factors and GDMT given prior LV dysfunction. At that time he stopped her lasix/potassium and had her on farxiga 10 mg daily, entresto low dose, imdur 30 mg daily, atorva 80, asa 81, norvasc 10 and no BB as she is reported to be allergic. At the time of that visit she weighed 148 pounds. She was still smoking and uses oxygen at home for her COPD. Patient states that she did not start the entresto and just continued on her home lasix. She states that she has been doing well on this. Feels like she gains weight at times but likely related to salt intake and her diet. She states that at times she gets transient periods of chest squeezing that her skidder driver felt to be angina. Patient on imdur and keeps this somewhat controlled. She states that the squeezing is not worsened by activity and comes randomly at times. PAST MEDICAL HISTORY PAST MEDICAL HISTORY 03/21/2024: CAD (coronary artery disease) 03/21/2024: CHF (congestive heart failure) ([facility]) 03/21/2024: COPD (chronic obstructive pulmonary disease) ([facility]) 03/21/2024: GERD (gastroesophageal reflux disease) 03/21/2024: HLD (hyperlipidemia) 03/21/2024: HTN (hypertension) 03/21/2024: Supplemental oxygen dependent PAST SURGICAL HISTORY No date: CHOLECYSTECTOMY HX No date: PAST SURGICAL HISTORY OF Comment: hernia repair No date: PAST SURGICAL HISTORY OF Comment: cardiac cath w/ PCI No date: PAST SURGICAL HISTORY OF Comment: tumor removed from right arm No date: PAST SURGICAL HISTORY OF Comment: hysterectomy No date: PAST SURGICAL HISTORY OF Comment: eye surgery FAMILY HISTORY FAMILY HISTORY Problem Relation Age of Onset Anesthesia Problems No Family History SOCIAL HISTORY Social History Tobacco Use Smoking status: Every Day Current packs/day: 1.50 Average packs/day: 1.5 packs/day for 30.0 years (45.0 ttl pk-yrs) Types: Cigarettes Smokeless tobacco: Never Substance Use Topics Alcohol use: Never Drug use: Never HOME MEDICATIONS metFORMIN (GLUCOPHAGE) 500 mg tabletTake 1 tablet every day by oral route for 90 days.Disp: Rfl: ipratropium-albuterol (DUONEB) 0.5 mg-3 mg(2.5 mg base)/3 mL nebuINHALE 3 (THREE) mls BY MOUTH via NEBULIZER FOUR TIMES DAILYDisp: Rfl: atorvastatin (LIPITOR) 80 mg tabletTake 1 tablet by mouth daily at bedtime.Disp: Rfl: potassium chloride (K-TAB) 10 mEq tabletTake 1 tablet by mouth every 48 hours.Disp: Rfl: esomeprazole (NEXIUM) 40 mg capsuleTake 40 mg by mouth two times a day.Disp: Rfl: isosorbide mononitrate ER (IMDUR) 30 mg 24 hr tabletTake 1 tablet by mouth every morning.Disp: Rfl: aspirin, enteric coated (ASPIRIN, ENTERIC COATED) 81 mg EC tabletin the morning.Disp: Rfl: amLODIPine (NORVASC) 10 mg tabletTake 10 mg by mouth once daily.Disp: Rfl: furosemide (LASIX) 40 mg tabletTake 40 mg by mouth once daily.Disp: Rfl: INPATIENT MEDICATIONS Current Facility-Administered Medications Medication Dose Route Frequency pantoprazole DR 40 mg tab(s) ( (more content not included)... Normal [facility] metabolic 2000 panelon 04-12-2024 Albumin [Mass/Vol] 3.6 g/dL Low 3.9-4.9 [facility] Comment on above: Order Comment: Speci men Type: BLOOD SPECIMENOrdering Facility: [facility] Address: [address] [place] [address] Performed By: #### 1 9123-9, 27098-1, 2777-1 ####[facility] LABCLIA [id number] [place] [address] [place] ALP [Catalytic activity/Vol] 92 U/L Normal 34-123 [facility] Comment on above: Order Comment: Speci men Type: BLOOD SPECIMENOrdering Facility: [facility] Address: [address] [place] [address] Performed By: #### 1 9123-9, 08479-7, 2777-1 ####[facility] LABCLIA [id number] [place] [address] [place] ALT [Catalytic activity/Vol] 48 U/L High 7-38 [facility] Comment on above: Order Comment: Speci men Type: BLOOD SPECIMENOrdering Facility: [facility] Address: [address] [place] [address] Performed By: #### 1 9123-9, 95233-3, 2777-1 ####[facility] LABCLIA [id number] [place] [address] [place] Anion gap [Moles/Vol] 13 mmol/L Normal 8-15 [facility] Comment on above: Order Comment: Speci men Type: BLOOD SPECIMENOrdering Facility: [facility] Address: [address] [place] [address] Performed By: #### 1 9123-9, 11045-0, 2777-1 ####[facility] LABCLIA [id number] [place] [id number] [place] AST [Catalytic activity/Vol] 16 U/L Normal 13-35 [facility] Comment on above: Order Comment: Speci men Type: BLOOD SPECIMENOrdering Facility: [facility] Address: [address] [place] [address] Performed By: #### 1 9123-9, 66089-6, 2776-08 ####[facility] LABCLIA [id number] [place] [address] [place] Bilirubin [Mass/Vol] 0.4 mg/dL Normal 0.2-1.3 [facility] Comment on above: Order Comment: Speci men Type: BLOOD SPECIMENOrdering Facility: [facility] Address: [address] [place] [address] Performed By: #### 1 9123-9, 94214-7, 2776-08 ####[facility] LABCLIA [id number] [place] [address] [place] Calcium [Mass/Vol] 9.0 mg/dL Normal 8.5-10.2 [facility] Comment on above: Order Comment: Speci men Type: BLOOD SPECIMENOrdering Facility: [facility] Address: [address] [place] [address] Performed By: #### 1 9123-9, 00827-8, 2776-08 ####[facility] LABCLIA [id number] [place] [address] [place] Chloride [Moles/Vol] 104 mmol/L Normal 98-107 [facility] Comment on above: Order Comment: Speci men Type: BLOOD SPECIMENOrdering Facility: [facility] Address: [address] [place] [address] Performed By: #### 1 9123-9, 66038-1, 2776-08 ####[facility] LABCLIA [id number] [place] [id number] [place] CO2 [Moles/Vol] 24 mmol/L Normal 22-30 [facility] Comment on above: Order Comment: Speci men Type: BLOOD SPECIMENOrdering Facility: [facility] Address: [address] [place] [id number] Performed By: #### 1 9123-9, 53412-0, 2776-08 ####[facility] LABCLIA [id number] [address] [address] [place] Creatinine [Mass/Vol] 0.65 mg/dL Normal 0.58-0.96 [facility] Comment on above: Order Comment: Speci men Type: BLOOD SPECIMENOrdering Facility: [facility] Address: [address] [place] [address] Performed By: #### 1 9123-9, , 2776-08 ####[facility] LABIA [id number] [place] [address] [place] Creatinine and Glomerular filtration rate.predicted panel (S/P/Bld) 95 mL/min/1.73m??? Normal >=60 [facility] Comment on above: Order Comment: Speci men Type: BLOOD SPECIMENOrdering Facility: [facility] Address: [address] [place] [address] Result Comment: Kayli mated Glomerular Filtration Rate (eGFR) is calculated using the 2020 CKD-EPI creatinine equation. This equation utilizes serum creatinine, sex, and age as parameters. The creatinine assay has traceable calibration to isotope dilution-mass spectrometry. Refer to KDIGO guidelines for clinical interpretation. In patients with unstable renal function, e.g. those with acute kidney injury, the eGFR may not accurately reflect actual GFR. Performed By: #### 1 9123-9, 04571-2, 2776-08 ####[facility] LABIA [id number] [place] [id number] [place] Glucose [Mass/Vol] 173 mg/dL High 74-99 [facility] Comment on above: Order Comment: Speci men Type: BLOOD SPECIMENOrdering Facility: [facility] Address: [address] [place] [address] Result Comment: The [place] [employer] (ADA) provides guidance for cutoff values for fasting glucose and random glucose. The ADA defines fasting as no caloric intake for at least 8 hours. Fasting plasma glucose results between 100 to 125 mg/dL indicate increased risk for diabetes (prediabetes). Fasting plasma glucose results greater than or equal to 126 mg/dL meet the criteria for diagnosis of diabetes. In the absence of unequivocal hyperglycemia, results should be confirmed by repeat testing. In a patient with classic symptoms of hyperglycemia or hyperglycemic crisis, random plasma glucose results greater than or equal to 200 mg/dL meet the criteria for diagnosis of diabetes. Reference: Standards of Medical Care in Diabetes 2016, [place] [employer]. Diabetes Care. 2016.39(Suppl 1). Performed By: #### 1 9123-9, 94321-0, 2777- ####[facility] LABIA [id number] [place] [address] [place] Potassium [Moles/Vol] 3.5 mmol/L Low 3.7-5.1 [facility] Comment on above: Order Comment: Speci men Type: BLOOD SPECIMENOrdering Facility: [facility] Address: [address] [place] [address] Performed By: #### 1 9123-9, 97360-7, 27702-13 ####[facility] LABIA [id number] [place] [address] [place] Protein [Mass/Vol] 6.1 g/dL Low 6.3-8.0 [facility] Comment on above: Order Comment: Speci men Type: BLOOD SPECIMENOrdering Facility: [facility] Address: [address] [place] [address] Performed By: #### 1 9123-9, 54323-0, 27702-13 ####[facility] LABIA [id number] [place] [address] [place] Sodium [Moles/Vol] 141 mmol/L Normal 136-144 [facility] Comment on above: Order Comment: Speci men Type: BLOOD SPECIMENOrdering Facility: [facility] Address: [address] [place] [address] Performed By: #### 1 9123-9, 26614-9, 2777-1 ####[facility] LABCLIA [id number] [address] [address] [place] Urea nitrogen [Mass/Vol] 12 mg/dL Normal 7-21 [facility] Comment on above: Order Comment: Speci men Type: BLOOD SPECIMENOrdering Facility: [facility] Address: [facility] [place] [id number] Performed By: #### 1 9123-9, 70738-7, 2777-1 ####[facility] LABCLIA [id number] [address] [address] [place] ECHO LIMITEDon 04-12-2024 ECHO LIMITED Echocardiography Report: [facility] Bedside Date of service: 04/12/2024 3:21:34 PM GAMING Ordering physician: JUJU OROURKE Indication: Evaluate LV function Technologist: Abhijit Hathaway Interpreting physician: Joaquin Land MD PATIENT: Name: MRS. JOHANNA MACDONALD : 1955 Age: 69 years Gender: F History of hypertension, diabetes mellitus and coronary artery disease. Primary rhythm: sinus. Height: 149.86 cm BSA: 1.73 m Weight: 71.67 kg BMI: 31.9 kg/m Heart rate 70 bpm Blood pressure 144/49 mmHg Color Doppler was utilized to interrogate the cardiac valves assessed and spectral Doppler was utilized to determine the flow velocities and pressure gradients reported in this exam. Myocardial strain analysis was performed in this exam to aid in the assessment of cardiac function. MEASUREMENTS: Value Indexed Normal LV ID (diastole) 4.6 cm (2D) 2.66 cm/m LV ID (systole) 3.2 cm (2D) 1.85 cm/m IVS, leaflet tips 1.1 cm (2D) Posterior wall thickness 1.0 cm (2D) Left ventricular mass 170 g (2D) 98 g/m Global peak long strain -13.5 % LV stroke volume 71 ml (2D 4-ch.) LV end diastolic volume 138 ml (2D 4-ch.) 79.9 ml/m 29<=EDVi<62 LV end systolic volume 67 ml (2D 4-ch.) 39.0 ml/m Ejection Fraction 51 % (2D 4-ch.) EF > 54 FINDINGS: LEFT VENTRICLE The left ventricle is mildly dilated. Left ventricular systolic function is mildly decreased. Global LV myocardial strain is abnormal. Left ventricular diastolic function was not evaluated due to Limited echo. Wall Motion: The basal inferior segment and basal inferoseptal segment are severely hypokinetic. All remaining scored segments are normal. RIGHT VENTRICLE The right ventricle is normal in size. Right ventricular systolic function is normal. Estimated right ventricular systolic pressure is not reported due to an insufficient tricuspid regurgitation signal. Estimated right atrial pressure is not included as the IVC was not seen. MITRAL VALVE There is trace mitral valve regurgitation. There is mild thickening. The pressure half time is 46 msec. The peak mitral E/A ratio is 0.80. The mitral flow deceleration time is 157 msec. TRICUSPID VALVE The tricuspid valve leaflets are structurally normal. There is trace tricuspid valve regurgitation. AORTIC VALVE There is trace aortic valve regurgitation. Tricuspid aortic valve. There is mild thickening. The peak gradient is 10 mmHg (peak velocity = 156.0 cm/s). PULMONIC VALVE The pulmonic valve cusps are structurally normal. There is trace pulmonic valve regurgitation. PULMONARY ARTERIES The pulmonary arteries are normal. PERICARDIUM There is no pericardial effusion. There is an epicardial fat pad. CONCLUSIONS: - Exam indication: Evaluate LV function - The abnormal regional wall motion pattern in conjunction with normal regional wall thickness is consistent with a LBBB abnormal conduction delay. - The left ventricle is mildly dilated. Left ventricular systolic function is mildly decreased. EF = 51 5% (2D 4-ch.) - The right ventricle is normal in size. Right ventricular systolic function is normal. _ No significant valvular abnormalities noted on the study. - Exam was compared with the prior CC echocardiographic exam performed on 04/09/2024. Similar findings. * * * Final * * * [employer] : [id number] ISUID Normal [facility] Magnesium [Mass/Vol] 1.9 mg/dL Normal 1.7-2.3 [facility] Comment on above: Order Comment: Peter linn Type: BLOOD SPECIMENOrdering Facility: [facility] Address: [address] [place] [address] Performed By: #### 1 9123-9, 90614-7, 2777-1 ####[facility] LABCLIA [id number] [address] [facility] NT[facility]BNP [facility] Natriuretic peptide.B prohormone N-Terminal [Mass/Vol] 3026 pg/mL High <125 [facility] Comment on above: Order Comment: Peter linn Type: BLOOD SPECIMEN [facility] Address: [address] [place] [address] Performed By: #### 3 3762-6 #### [facility] CLIA [id number] [address] [place] [address] OF YUE PT EDon 04-12-2024 PT ED HNO ID: [id number] Author: CAROLINA ROGERS DTR Service: Nutrition Therapy Author Type: Blanker Operator Type: Patient Education Filed: 04/12/2024 07:25 Note Text: NUTRITION THERAPY PATIENT EDUCATION SERVICE DATE: 04/12/2024 SERVICE TIME: 722 TOPIC: Diet: Exemption from nutrition education: Patient not ready to learn at this time due to patient currently in the ICU and diet education not appropriate at this time. Will monitor and completed education prior to discharge home. MNT Billing: $ Routine Care : 1-15 minutes SIGNATURE: Carolina Rogers DTR PATIENT NAME: Johanna Macdonald DATE: April 12, 2024 TIME: 7:22 AM PAGER: Normal [facility] Phosphate [facility] 04[facility]12 Phosphate [Mass/Vol] 2.5 mg/dL Low 2.7-4.8 [facility] Comment on above: Order Comment: Peter linn Type: BLOOD SPECIMENOrdering Facility: [facility] Address: [address] [place] [address] Performed By: #### 1 9123-9, 49556-0, 2777-1 ####[facility] LABCLIA [id number] [facility] [address] [place] XR CHEST 1V FRONTAL PORTon 0 04-12-2024 XR CHEST 1V FRONTAL PORT * * *Final Report* * * DATE OF EXAM: Apr 12 2024 8:46AM ESTELLA [id number] - XR CHEST 1V FRONTAL PORT / PROCEDURE REASON: Post-operative/post-pro cedure assessment * * * * Physician Interpretation * * * * EXAMINATION: CHEST RADIOGRAPH (PORTABLE SINGLE VIEW AP) Exam Date/Time: 04/12/2024 8:46 AM Clinical History: Post-operative/post-pro cedure assessment MQ: [id number] Comparison: 1 day prior RESULT: Lines, tubes, and devices: None. Lungs and pleura: Bibasilar opacities may represent atelectasis or pneumonia/aspiration. Blunting of the costophrenic angles likely represents small pleural effusions. There is no pneumothorax. Cardiomediastinal silhouette: The cardiomediastinal silhouette is stable. The aortic arch is atherosclerotic. IMPRESSION: See result. Internet Database Specialist: ROBERT Transcribe Date/Time: Apr 12 2024 12:38P Dictated by : SARAH STEVENS MD This examination was interpreted and the report reviewed and electronically signed by: SARAH STEVENS MD on Apr 12 2024 12:39PM EST [id number] Normal [facility] ARTERIAL BLOOD GASESon 04-11 Base excess Calc (Bld) [Moles/Vol] 0 mmol/L Normal 0-2 [facility] Comment on above: Order Comment: Speci men Type: ARTERIAL BLOOD SPECIMEN [facility] Address: [address] [place] [address] Performed By: #### A LLBG #### [facility] CLIA [id number] [address] [place], [place] [address] [place] [address] [place] Body temperature 98.6 [degF] Normal [facility] Comment on above: Order Comment: Speci men Type: ARTERIAL BLOOD SPECIMEN [facility] Address: [address] [place] [address] Performed By: #### A LLBG #### [facility] CLIA [id number] [address] [place] [place] [address] [place] Calcium.ionized (Bld) [Mass/Vol] 1.20 mmol/L Normal 1.08-1.30 [facility] Comment on above: Order Comment: Speci men Type: ARTERIAL BLOOD SPECIMEN [facility] Address: [address] [place] [address] Performed By: #### A LLBG #### [facility] CLIA [id number] [address] [place] [place] [address] [place] Calcium.ionized adjusted to pH 7.4 (BldA) [Moles/Vol] 1.21 mmol/L Normal 1.08-1.30 [facility] Comment on above: Order Comment: Speci men Type: ARTERIAL BLOOD SPECIMEN [facility] Address: [address] [place] [address] Performed By: #### A LLBG #### [facility] CLIA [id number] [address] [place] [address] [place] Carboxyhemoglobin (BldA) [Mass fraction] 1.3 % Normal 0.0-2.0 [facility] Comment on above: Order Comment: Speci men Type: ARTERIAL BLOOD SPECIMEN [facility] Address: [address] [place] [address] Result Comment: Carb oxyhemoglobin Reference Range for Smokers: 2.0-8.0% Performed By: #### A LLBG #### [facility] CLIA [id number] [address] [place] [place] [address] [place] CO2 (Bld) [Partial pressure] 37 mm Hg Normal 36-46 [facility] Comment on above: Order Comment: Speci men Type: ARTERIAL BLOOD SPECIMEN Ordering Facility: [facility] Address: [address] [place] [address] Performed By: #### A LLBG #### [facility] CLIA [id number] [address] [place] [address] [place] FIO2 50 % Normal [facility] Comment on above: Order Comment: Speci men Type: ARTERIAL BLOOD SPECIMEN Ordering Facility: [facility] Address: [address] [place] [address] Performed By: #### A LLBG #### [facility] CLIA [id number] [address] [place] [place] [address] [place] Glucose [Mass/Vol] 228 mg/dL High 60-105 [facility] Comment on above: Order Comment: Speci men Type: ARTERIAL BLOOD SPECIMEN Ordering Facility: [facility] Address: [address] [place] [address] Performed By: #### A LLBG #### [facility] CLIA [id number] [address] [place] [place] [address] [place] HCO3 (Bld) [Moles/Vol] 23 mmol/L Normal 22-26 [facility] Comment on above: Order Comment: Speci men Type: ARTERIAL BLOOD SPECIMEN Ordering Facility: [facility] Address: [address] [place] [address] Performed By: #### A LLBG #### [facility] CLIA [id number] [address] [place] [address] [place] Hematocrit (Bld) [Volume fraction] 33.4 % Low 36.0-46.0 [facility] Comment on above: Order Comment: Speci men Type: ARTERIAL BLOOD SPECIMEN Ordering Facility: [facility] Address: [address] [place] [address] Performed By: #### A LLBG #### [facility] CLIA [id number] [address] [place] [address] [place] Hemoglobin (Bld) [Mass/Vol] 10.8 g/dL Low 11.5-15.5 [facility] Comment on above: Order Comment: Speci men Type: ARTERIAL BLOOD SPECIMEN Ordering Facility: [facility] Address: [address] [place] [address] Performed By: #### A LLBG #### [facility] CLIA [id number] [address] [place] [address] [place] Lactate [Moles/Vol] 0.9 mmol/L Normal 0.5-2.2 [facility] Comment on above: Order Comment: Speci men Type: ARTERIAL BLOOD SPECIMEN Ordering Facility: [facility] Address: [address] [place] [address] Performed By: #### A LLBG #### [facility] CLIA [id number] [address] [place] [address] [place] LITERS 35 Liters/min Normal [facility] Comment on above: Order Comment: Speci men Type: ARTERIAL BLOOD SPECIMEN Ordering Facility: [facility] Address: [address] [place] [address] Performed By: #### A LLBG #### [facility] CLIA [id number] [address] [place] [address] [place] Methemoglobin (Bld) [Mass fraction] 1.1 % Normal 0.0-1.5 [facility] Comment on above: Order Comment: Speci men Type: ARTERIAL BLOOD SPECIMEN Ordering Facility: [facility] Address: [address] [place] [address] Performed By: #### A LLBG #### [facility] CLIA [id number] [address] [place] [address] [place] O2 THERAPY Hi-Flow Nasal Cannula-Heated Normal [facility] Comment on above: Order Comment: Speci men Type: ARTERIAL BLOOD SPECIMEN Ordering Facility: [facility] Address: [address] [place] [address] Performed By: #### A LLBG #### [facility] CLIA [id number] [address] [place] [id number] [place] Oxygen (Bld) [Partial pressure] 104 mm Hg High 85-95 [facility] Comment on above: Order Comment: Speci men Type: ARTERIAL BLOOD SPECIMEN Ordering Facility: [facility] Address: [address] [place] [address] Performed By: #### A LLBG #### [facility] CLIA [id number] [address] [place] [address] [place] Oxyhemoglobin (BldA) [Mass fraction] 96 % Normal 95-98 [facility] Comment on above: Order Comment: Speci men Type: ARTERIAL BLOOD SPECIMEN Ordering Facility: [facility] Address: [address] [place] [address] Performed By: #### A LLBG #### [facility] CLIA [id number] [address] [place] [address] [place] pH (Bld) 7.41 [pH] Normal 7.35-7.45 [facility] Comment on above: Order Comment: Speci men Type: ARTERIAL BLOOD SPECIMEN Ordering Facility: [facility] Address: [address] [place] [address] Performed By: #### A LLBG #### [facility] CLIA [id number] [address] [place] [address] [place] PO2 / FIO2 RATIO 208 mmHg Low >300 [facility] Comment on above: Order Comment: Speci men Type: ARTERIAL BLOOD SPECIMEN Ordering Facility: [facility] Address: [address] [place], [place] [address] Performed By: #### A LLBG #### [facility] CLIA [id number] [address] [place] [address] [place] Potassium [Moles/Vol] 3.9 mmol/L Normal 3.5-5.0 [facility] Comment on above: Order Comment: Speci men Type: ARTERIAL BLOOD SPECIMEN Ordering Facility: [facility] Address: [address] [place] [address] Performed By: #### A LLBG #### [facility] CLIA [id number] [address] [place] [address] [place] Sodium [Moles/Vol] 139 mmol/L Normal 136-144 [facility] Comment on above: Order Comment: Speci men Type: ARTERIAL BLOOD SPECIMEN Ordering Facility: [facility] Address: [address] [place] [address] Performed By: #### A LLBG #### [facility] CLIA [id number] [address] [place] [address] [place] CBC W Auto Differential pane l (Bld)on 04-11-2024 Basophils (Bld) [#/Vol] 10*3/uL Normal <0.11 [facility] Comment on above: Order Comment: Speci men Type: ARTERIAL BLOOD SPECIMEN Ordering Facility: [facility] Address: [address] [place] [address] Performed By: #### A LLBG #### [facility] CLIA [id number] [address] [place] [address] [place] Basophils/100 WBC (Bld) 0.1 % Normal [facility] Comment on above: Order Comment: Speci men Type: ARTERIAL BLOOD SPECIMEN Ordering Facility: [facility] Address: [address] [place] [address] Performed By: #### A LLBG #### [facility] CLIA [id number] [address] [place] [address] [place] Differential cell count method Nom (Bld) Auto Normal [facility] Comment on above: Order Comment: Speci men Type: ARTERIAL BLOOD SPECIMEN Ordering Facility: [facility] Address: [address] [place] [address] Performed By: #### A LLBG #### [facility] CLIA [id number] [address] [place] [address] [place] Eosinophils (Bld) [#/Vol] 10*3/uL Normal <0.46 [facility] Comment on above: Order Comment: Speci men Type: ARTERIAL BLOOD SPECIMEN Ordering Facility: [facility] Address: [address] [place] [address] Performed By: #### A LLBG #### [facility] CLIA [id number] [address] [place] [address] [place] Eosinophils/100 WBC (Bld) 0.1 % Normal [facility] Comment on above: Order Comment: Speci men Type: ARTERIAL BLOOD SPECIMEN Ordering Facility: [facility] Address: [address] [place] [address] Performed By: #### A LLBG #### [facility] CLIA [id number] [address] [place] [address] [place] Erythrocyte distribution width (RBC) [Ratio] 20.5 % High 11.5-15.0 [facility] Comment on above: Order Comment: Speci men Type: ARTERIAL BLOOD SPECIMEN Ordering Facility: [facility] Address: [address] [place] [address] Performed By: #### A LLBG #### [facility] CLIA [id number] [address] [place] [address] [place] Hematocrit (Bld) [Volume fraction] 30.6 % Low 36.0-46.0 [facility] Comment on above: Order Comment: Speci men Type: ARTERIAL BLOOD SPECIMEN Ordering Facility: [facility] Address: [address] [place] [address] Performed By: #### A LLBG #### [facility] CLIA [id number] [address] [place] [address] [place] Hemoglobin (Bld) [Mass/Vol] 10.1 g/dL Low 11.5-15.5 [facility] Comment on above: Order Comment: Speci men Type: ARTERIAL BLOOD SPECIMEN Ordering Facility: [facility] Address: [address] [place] [address] Performed By: #### A LLBG #### [facility] CLIA [id number] [address] [place] [place] [address] [place] Immature granulocytes (Bld) [#/Vol] 0.22 10*3/uL High <0.10 [facility] Comment on above: Order Comment: Speci men Type: ARTERIAL BLOOD SPECIMEN Ordering Facility: [facility] Address: [address] [place] [address] Performed By: #### A LLBG #### [facility] CLIA [id number] [address] [place] [address] [place] Immature granulocytes/100 WBC (Bld) 1.6 % Normal [facility] Comment on above: Order Comment: Speci men Type: ARTERIAL BLOOD SPECIMEN Ordering Facility: [facility] Address: [address] [place] [address] Performed By: #### A LLBG #### [facility] CLIA [id number] [address] [place] [address] [place] Lymphocytes (Bld) [#/Vol] 0.89 10*3/uL Low 1.00-4.00 [facility] Comment on above: Order Comment: Speci men Type: ARTERIAL BLOOD SPECIMEN Ordering Facility: [facility] Address: [address] [place] [address] Performed By: #### A LLBG #### [facility] CLIA [id number] [address] [place] [address] [place] Lymphocytes/100 WBC (Bld) 6.6 % Normal [facility] Comment on above: Order Comment: Speci men Type: ARTERIAL BLOOD SPECIMEN Ordering Facility: [facility] Address: [address] [place] [address] Performed By: #### A LLBG #### [facility] CLIA [id number] [address] [place] [address] [place] MCH (RBC) [Entitic mass] 26.4 pg Normal 26.0-34.0 [facility] Comment on above: Order Comment: Speci men Type: ARTERIAL BLOOD SPECIMEN Ordering Facility: [facility] Address: [address] [place] [address] Performed By: #### A LLBG #### [facility] CLIA [id number] [address] [place] [address] [place] MCHC (RBC) [Mass/Vol] 33.0 g/dL Normal 30.5-36.0 [facility] Comment on above: Order Comment: Speci men Type: ARTERIAL BLOOD SPECIMEN Ordering Facility: [facility] Address: [address] [place] [address] Performed By: #### A LLBG #### [facility] CLIA [id number] [address] [place] [address] [place] MCV (RBC) [Entitic vol] 80.1 fL Normal 80.0-100.0 [facility] Comment on above: Order Comment: Speci men Type: ARTERIAL BLOOD SPECIMEN Ordering Facility: [facility] Address: [address] [place] [address] Performed By: #### A LLBG #### [facility] CLIA [id number] [address] [place] [address] [place] Monocytes (Bld) [#/Vol] 0.62 10*3/uL Normal <0.87 [facility] Comment on above: Order Comment: Speci men Type: ARTERIAL BLOOD SPECIMEN Ordering Facility: [facility] Address: [address] [place] [address] Performed By: #### A LLBG #### [facility] CLIA [id number] [address] [place] [address] [place] Monocytes/100 WBC (Bld) 4.6 % Normal [facility] Comment on above: Order Comment: Speci men Type: ARTERIAL BLOOD SPECIMEN Ordering Facility: [facility] Address: [address] [place] [address] Performed By: #### A LLBG #### [facility] CLIA [id number] [address] [place] [place] [address] [place] Neutrophils (Bld) [#/Vol] 11.68 10*3/uL High 1.45-7.50 [facility] Comment on above: Order Comment: Speci men Type: ARTERIAL BLOOD SPECIMEN Ordering Facility: [facility] Address: [address] [place] [address] Performed By: #### A LLBG #### [facility] CLIA [id number] [address] [place] [address] [place] Neutrophils/100 WBC (Bld) 87.0 % Normal [facility] Comment on above: Order Comment: Speci men Type: ARTERIAL BLOOD SPECIMEN Ordering Facility: [facility] Address: [address] [place] [address] Performed By: #### A LLBG #### [facility] CLIA [id number] [address] [place] [address] [place] Nucleated RBC (Bld) [#/Vol] 10*3/uL Normal <0.01 [facility] Comment on above: Order Comment: Speci men Type: ARTERIAL BLOOD SPECIMEN Ordering Facility: [facility] Address: [address] [place] [address] Performed By: #### A LLBG #### [facility] CLIA [id number] [address] [place] [address] [place] Nucleated RBC/100 WBC (Bld) [Ratio] 0.0 /100 WBC Normal [facility] Comment on above: Order Comment: Speci men Type: ARTERIAL BLOOD SPECIMEN Ordering Facility: [facility] Address: [address] [place] [address] Performed By: #### A LLBG #### [facility] CLIA [id number] [address] [place] [address] [place] Platelet mean volume (Bld) [Entitic vol] 9.3 fL Normal 9.0-12.7 [facility] Comment on above: Order Comment: Speci men Type: ARTERIAL BLOOD SPECIMEN Ordering Facility: [facility] Address: [address] [place] [address] Performed By: #### A LLBG #### [facility] CLIA [id number] [address] [place] [address] [place] Platelets (Bld) [#/Vol] 334 10*3/uL Normal 150-400 [facility] Comment on above: Order Comment: Speci men Type: ARTERIAL BLOOD SPECIMEN Ordering Facility: [facility] Address: [address] [place] [address] Performed By: #### A LLBG #### [facility] CLIA [id number] [address] [place] [address] [place] RBC (Bld) [#/Vol] 3.82 10*6/uL Low 3.90-5.20 [facility] Comment on above: Order Comment: Speci men Type: ARTERIAL BLOOD SPECIMEN Ordering Facility: [facility] Address: [address] [place] [address] Performed By: #### A LLBG #### [facility] CLIA [id number] [address] [place] [address] [place] WBC (Bld) [#/Vol] 13.44 10*3/uL High 3.70-11.00 [facility] Comment on above: Order Comment: Speci men Type: ARTERIAL BLOOD SPECIMEN Ordering Facility: [facility] Address: [address] [place] [address] Performed By: #### A LLBG #### [facility] CLIA [id number] [address] [place] [address] [place] Comprehensive metabolic 2000 panelon 04-11-2024 Albumin [Mass/Vol] 3.4 g/dL Low 3.9-4.9 [facility] Comment on above: Order Comment: Speci men Type: BLOOD SPECIMENOrdering Facility: [facility] Address: [address] [place] [address] Performed By: #### 3 3762-6, 86687-8, 2776-08, ####[facility] [id number] [place] [address] [place] ALP [Catalytic activity/Vol] 94 U/L Normal 34-123 [facility] Comment on above: Order Comment: Speci men Type: BLOOD SPECIMENOrdering Facility: [facility] Address: [address] [place] [address] Performed By: #### 3 3762-6, 30380-1, 2776-08, ####[facility] [id number] [place] [address] [place] ALT [Catalytic activity/Vol] 59 U/L High 7-38 [facility] Comment on above: Order Comment: Speci men Type: BLOOD SPECIMENOrdering Facility: [facility] Address: [address] [place] [address] Performed By: #### 3 3762-6, 93913-1, 2776-08, ####[facility] [id number] [place] [address] [place] Anion gap [Moles/Vol] 12 mmol/L Normal 8-15 [facility] Comment on above: Order Comment: Speci men Type: BLOOD SPECIMENOrdering Facility: [facility] Address: [address] [place] [address] Performed By: #### 3 3762-6, 82769-2, 2776-08, ####[facility] [id number] [place] [id number] [place] AST [Catalytic activity/Vol] 22 U/L Normal 13-35 [facility] Comment on above: Order Comment: Speci men Type: BLOOD SPECIMENOrdering Facility: [facility] Address: [address] [place] [address] Performed By: #### 3 3762-6, 27495-8, 2776-08, ####[facility] [id number] [place] [id number] [place] Bilirubin [Mass/Vol] 0.4 mg/dL Normal 0.2-1.3 [facility] Comment on above: Order Comment: Speci men Type: BLOOD SPECIMENOrdering Facility: [facility] Address: [address] [place] [address] Performed By: #### 3 3762-6, 60362-2, 2776-08, ####[facility] [id number] [place] [address] [place] Calcium [Mass/Vol] 8.9 mg/dL Normal 8.5-10.2 [facility] Comment on above: Order Comment: Speci men Type: BLOOD SPECIMENOrdering Facility: [facility] Address: [address] [place] [address] Performed By: #### 3 3762-6, 42555-3, 2776-08, ####[facility] [id number] [place] [address] [place] Chloride [Moles/Vol] 105 mmol/L Normal 98-107 [facility] Comment on above: Order Comment: Speci men Type: BLOOD SPECIMENOrdering Facility: [facility] Address: [address] [place], [place] [address] Performed By: #### 3 3762-6, 62084-9, 2776-08, ####[facility] [id number] [place] [id number] [place] CO2 [Moles/Vol] 20 mmol/L Low 22-30 [facility] Comment on above: Order Comment: Speci men Type: BLOOD SPECIMENOrdering Facility: [facility] Address: [address] [place] [id number] Performed By: #### 3 3762-6, 57432-8, 2776-08, ####[facility] [id number] [place] [id number] [place] Creatinine [Mass/Vol] 0.57 mg/dL Low 0.58-0.96 [facility] Comment on above: Order Comment: Speci men Type: BLOOD SPECIMENOrdering Facility: [facility] Address: [address] [place] [address] Performed By: #### 3 3762-6, 03620-4, 2776-08, ####[facility] [id number] [place] [address] [place] Creatinine and Glomerular filtration rate.predicted panel (S/P/Bld) 99 mL/min/1.73m??? Normal >=60 [facility] Comment on above: Order Comment: Speci men Type: BLOOD SPECIMENOrdering Facility: [facility] Address: [address] [place] [address] Result Comment: Kayli mated Glomerular Filtration Rate (eGFR) is calculated using the 2020 CKD-EPI creatinine equation. This equation utilizes serum creatinine, sex, and age as parameters. The creatinine assay has traceable calibration to isotope dilution-mass spectrometry. Refer to KDIGO guidelines for clinical interpretation. In patients with unstable renal function, e.g. those with acute kidney injury, the eGFR may not accurately reflect actual GFR. Performed By: #### 3 3762-6, 32078-9, 2776-08, ####[facility] [id number] [place] [id number] [place] Glucose [Mass/Vol] 184 mg/dL High 74-99 [facility] Comment on above: Order Comment: Speci men Type: BLOOD SPECIMENOrdering Facility: [facility] Address: [address] [place] [id number] Result Comment: The [place] [employer] (ADA) provides guidance for cutoff values for fasting glucose and random glucose. The ADA defines fasting as no caloric intake for at least 8 hours. Fasting plasma glucose results between 100 to 125 mg/dL indicate increased risk for diabetes (prediabetes). Fasting plasma glucose results greater than or equal to 126 mg/dL meet the criteria for diagnosis of diabetes. In the absence of unequivocal hyperglycemia, results should be confirmed by repeat testing. In a patient with classic symptoms of hyperglycemia or hyperglycemic crisis, random plasma glucose results greater than or equal to 200 mg/dL meet the criteria for diagnosis of diabetes. Reference: Standards of Medical Care in Diabetes 2016, [place] [employer]. Diabetes Care. 2016.39(Suppl 1). Performed By: #### 3 3762-6, 16762-2, 2776-08, ####[facility] [id number] [place] [address] [place] Potassium [Moles/Vol] 4.2 mmol/L Normal 3.7-5.1 [facility] Comment on above: Order Comment: Speci men Type: BLOOD SPECIMENOrdering Facility: [facility] Address: [address] [place] [address] Performed By: #### 3 3762-6, 31378-8, 2776-08, ####[facility] [id number] [place] [id number] [place] Protein [Mass/Vol] 6.1 g/dL Low 6.3-8.0 [facility] Comment on above: Order Comment: Speci men Type: BLOOD SPECIMENOrdering Facility: [facility] Address: [address] [place] [id number] Performed By: #### 3 3762-6, 10544-2, 2776-08, ####[facility] [id number] [place] [id number] [place] Sodium [Moles/Vol] 137 mmol/L Normal 136-144 [facility] Comment on above: Order Comment: Speci men Type: BLOOD SPECIMENOrdering Facility: [facility] Address: [address] [place], [place] [address] Performed By: #### 3 3762-6, 98474-8, 277-1, ####[facility] [id number] [place] [id number] [place] Urea nitrogen [Mass/Vol] 7 mg/dL Normal 7-21 [facility] Comment on above: Order Comment: Speci men Type: BLOOD SPECIMENOrdering Facility: [facility] Address: [address] [place] [address] Performed By: #### 3 3762-6, 19459-5, 277-, ####[facility] [id number] [place] [id number] [place] ECG COMPLETEon 04-11-2024 ECG COMPLETE Ventricular Rate : 7 6 BPM Atrial Rate : 76 BPM P-R Interval : 238 ms QRS Duration : 176 ms Q-T Interval : 454 ms QTC Calculation(Bazett) : 510 ms Calculated P Linwood : 65 degrees Calculated R Linwood : -13 degrees Calculated T Lin[place] : 131 degrees SINUS RHYTHM WITH 1ST DEGREE AV BLOCK COMPLETE LEFT BUNDLE BRANCH BLOCK ABNORMAL ECG Confirmed by FERNANDO PINON MD () on 04/25/2024 10:19:22 AM NAME : JOHANNA MACDONALD PID : [id number] : 1955 Gender : Female Race : ORD : [id number] Procedure Date : Apr 11 2024 07:38:35 Edit Date : Apr 25 2024 10:35:54 Diagnosis: SINUS RHYTHM WITH 1ST DEGREE AV BLOCK COMPLETE LEFT BUNDLE BRANCH BLOCK ABNORMAL ECG Confirmed by FERNANDO PINON MD () on 04/25/2024 10:19:22 AM Test Reason : Check QT Location : 153 : G53 [id number] Overread By : FERNANDO PINON MD Edited By : FERNANDO PINON MD Referred By : , Acquired by : HONEY SCHRADER MIKAYLA Normal [facility] Magnesium SerPl-mCncon 04-11 Magnesium [Mass/Vol] 2.1 mg/dL Normal 1.7-2.3 [facility] Comment on above: Order Comment: Peter linn Type: BLOOD SPECIMENOrdering Facility: [facility] Address: [address] [place] [address] Performed By: #### 3 3762-6, 98563-6, 2777-1, 58704-4 ####[facility] [id number] [place] [address] [place] NT-proBNP [facility] Natriuretic peptide.B prohormone N-Terminal [Mass/Vol] 1954 pg/mL High <125 [facility] Comment on above: Order Comment: Peter linn Type: BLOOD SPECIMENOrdering Facility: [facility] Address: [address] [place] [address] Performed By: #### 3 3762-6, 32818-0, 2777-1, 29544-0 ####[facility] [id number] [place] [address] [place] PT panel Coag (PPP)on 2023 INR Coag (PPP) [Relative time] 1.1 {INR} Normal 0.9-1.3 [facility] Comment on above: Order Comment: Peter linn Type: BLOOD SPECIMENOrdering Facility: [facility] Address: [address] [place] [address] Result Comment: Aline min K Antagonist (VKA) Therapeutic Range: INR 2 to 3 (Target INR of 2.5) Note: For patients treated with VKA drugs, such as warfarin, the [place] [employer] 2012 Guideline recommends a therapeutic INR range of 2 to 3 (target INR of 2.5). This recommendation includes high-risk patients with antiphospholipid syndrome with previous arterial or venous thromboembolism, current-generation mechanical or bioprosthetic aortic heart valve replacement. Note: Patients with mechanical aortic valve replacement and additional risk factors for thromboembolic events (atrial fibrillation, previous thromboembolism, LV dysfunction, hypercoagulable conditions) or an older generation mechanical AVR (i.e., ball in-Cage) or any mechanical MVR should have a INR therapeutic range of 2.5 to 3.5 (target INR of 3). Joyce GH, et al. Chest 2012, 141:7S-47S Margot RA, et al. [facility] 2017, 70: 252-289 Performed By: #### 1 4979-9, 20601-6 ####[facility]CL[facility] [id number] [address] [place] PT Coag (PPP) [Time] 11.4 s Normal 9.7-13.0 [facility] Comment on above: Order Comment: Speci men Type: BLOOD SPECIMENOrdering Facility: [facility] Address: [address] [place] [address] Performed By: #### 1 4979-9, 19687-1 ####[facility]CLIA [id number] [address] [facility] Phosphate SerPl-mCncon 04-11 Phosphate [Mass/Vol] 2.3 mg/dL Low 2.7-4.8 [facility] Comment on above: Order Comment: Speci men Type: BLOOD SPECIMENOrdering Facility: [facility] Address: [address] [place] [address] Performed By: #### 3 3762-6, 42806-7, 2777-1, 76970-4 ####[facility] [id number] [address] [facility] THERAPY NTon 04-11-2024 THERAPY NT HNO ID: [id number] Author: DEIDRA RAPP OT/Chas Service: Occupational Therapy Author Type: Occupational Therapist Type: Therapy (PT/OT/Speech/Resp) Filed: 04/11/2024 14:30 Note Text: Occupational Therapy Evaluation Summary SERVICE DATE: 04/11/2024 SERVICE TIME: 1335 to 1420 ROOM: [place] [address] OT 6 Clicks Score: 19 DISCHARGE RECOMMENDATIONS Home OT Recommended Discharge Disposition Comments: Assistance all IADLs; SPV during bathing Anticipated Discharge Needs: Physical Assist at Home Physical Assist at Home for: Transportation, Shopping, Medication Management, Meals, Laundry, Cleaning, Self Care ASSESSMENT Response to Therapy Interventions: Good Participation in Activities, Labile Vital Signs Consulted RT prior to OT treatment. RT suggesting 8L HiFlo NC during OOB activity. SpO2 >87% on 8L during functional mobility related task. Anticipate pt will be appropriate for Home d/c. Would benefit from additional OT treatment while in house to address performance in LB ADLs and toileting. PRECAUTIONS Abdominal, Fall Risk, Lines/Tubes/Drains Binder, SpO2 > 88% CURRENT HOSPITAL COURSE 69 y.o. F s/p robotic converted to open VHR on 04/07. 04/08: AMET to SICU for hypotension and first degree heart block. Relevant Past Medical History: COPD on 2L at home, CAD, HTN, HLD, CHF, GERD, T2DM HOME LIVING Patient Lives With: Spouse Assistance Available: Part-Time Entry To Home: Stairs, With Rail Number Of Stairs Into Home: 3 Number Of Stairs To Bed/Bath: 0 Equipment Owned: Home Oxygen PRIOR FUNCTIONAL LEVEL Within Functional Limits I ADLs, amb no AD, limited activity tolerance d/t COPD SUBJECTIVE I feel better than yesterday COGNITION Communication Deficits: Other: See Comment (Intact) Orientation Deficits: Other: See Comment (AANDOx3) Responsiveness: Alert, Awake Follows Commands: 3-step Commands Cog 6 Start of Session Total Points (Max Score = 24): 24 (04/11/24) Cog 6 End of Session Total Points (Max Score = 24): 24 (04/11/24) Confusion Assessment Method (CAM - ICU Score): Negative (04/11/24) THERAPY DIAGNOSIS Reduced mobility-other, Decreased activities of daily living (ADL), Unsteadiness on feet, General symptoms and signs-other, Signs and Symptoms Involving Cognitive Functions and Awareness TREATMENT INTERVENTIONS Evaluation, Therapeutic Activity (08736), Self Long Term Management (38699) Timed Code Treatment (minutes): 30 Skilled Treatment Time (minutes): 45 TRAINING AND EDUCATION PROVIDED Bed Mobility, Benefits of In-Hospital Mobility, Assistive Device Use, Adaptive Equipment/DME, Activity Adaptation/Compensatory Strategies, Discharge Planning, Disease Specific Education, Cognitive Skills, Functional Mobility Involving ADLs, Grooming Tasks, Health Literacy, Health Management of Chronic Conditions, Insight into Deficits, Lower Extremity Dressing, Orientation, Pain Management, Positioning, Precautions/Restriction s, Role of Occupational Therapy, Sitting Balance to Improve [place] with ADLs/Self-Care, Standing Balance to ImproveIndependence with ADLs/Self-Care, Transfer - Bed to Chair, Transfer - Sitto Stand, Treatment Protocol THERAPEUTIC SKILLS USED Assessment of Tolerance Including Vitals Response to Activity, Activity Dosing, Cuing Verbal, Cuing Tactile, Cues for Sequencing/Proper Technique for Activity, Facilitation of Joint Range of Motion, Management of Critical Lines, Tubes and/or Drains, Physical Assist, Therapeutic Use of Self FUNCTIONAL STATUS Activities of Daily Living Assist Level Additional Information Feeding Set Up Grooming Stand By Assistance Bathing Upper Body Stand By Assistance Bathing Lower Body Moderate Assistance Dressing Upper Body Stand By Assistance Dressing Lower Body Moderate Assistance Toileting Minimal Assistance Mobility Assist Level Additional Information Bed Mobility Supine To Sit: Stand By Assistance Sit to Stand Minimal Assistance Stand to Sit Minimal Assistance Bed to Chair Minimal Assistance Bed To Chair Transfer Type: Stepping Bed To Chair Transfer Equipment: Gait Belt Toilet/Commode Shower Functional Mobility Contact Guard Assistance Functional Mobility Device: Wheeled Walker GOALS Patient will demonstrate progress with self-care, cognitive and/or coping needs identified to allow safe discharge to home with available support and/or physical assistance. Progress Toward Goals: Progressing as expected Rehab Potential: Good PLAN OT Frequency: 3 Times Per Week Treatment Interventions: Education, Self Care/Home Management, Energy Conservation Training, Joint Mobility, Strengthening, Functional Mobility Training, Balance Training, Neuromuscular Re-education, Edema Management, Pain Management, Coping Strategy Education, Dressing Change/Management, Cognitive Training Plan for Next Visit: Bed Mobility, Bathing Training, Standing Balance, Standing Tolerance, Toileting Instruct (more content not included)... Normal [facility] TYPE + SCREENon 04-11-2024 ABO A Normal [facility] Comment on above: Order Comment: Speci men Type: ARTERIAL BLOOD SPECIMEN [facility] Address: [address] [place] [address] Performed By: #### A LLBG #### [facility] CLIA [id number] [address] [place] [address] [place] HISTORICAL AB SCR STATUS Negative Normal [facility] Comment on above: Order Comment: Speci men Type: ARTERIAL BLOOD SPECIMEN [facility] Address: [address] [place] [address] Performed By: #### A LLBG #### [facility] CLIA [id number] [address] [place] [address] [place] Rh Nom (Bld) Positive Normal [facility] Comment on above: Order Comment: Speci men Type: ARTERIAL BLOOD SPECIMEN [facility] Address: [address] [place] [address] Performed By: #### A LLBG #### [facility] CLIA [id number] [address] [place] [address] [place] TYPE AND SCREEN EXPIRATION 04/14/2024 23:59 Normal [facility] Comment on above: Order Comment: Speci men Type: ARTERIAL BLOOD SPECIMEN [facility] Address: [address] [place] [address] Performed By: #### A LLBG #### [facility] CLIA [id number] [address] [place] [address] [place] XR CHEST 1V FRONTALon 2023 XR CHEST 1V FRONTAL * * *Final Report* * * DATE OF EXAM: Apr 11 2024 3:35AM ESTELLA 5290 - XR CHEST 1V FRONTAL / PROCEDURE REASON: Pleural effusion * * * * Physician Interpretation * * * * EXAMINATION: CHEST RADIOGRAPH (PORTABLE SINGLE VIEW AP) Exam Date/Time: 04/11/2024 3:35 AM Clinical History: Pleural effusion, Hypoxemia MQ: [id number]_6 Comparison: 1 day prior RESULT: Lines, tubes, and devices: None. Lungs and pleura: Stable small pleural effusions bilaterally. Adjacent bibasilar opacities are unchanged, probably representing atelectasis, less likely pneumonia/aspiration. No new consolidation or pulmonary edema. No substantial pneumothorax. Cardiomediastinal silhouette: Stable cardiomediastinal silhouette. The thoracic aorta is atherosclerotic. Other: . IMPRESSION: See result. Internet Database Specialist: ROBERT Transcribe Date/Time: Apr 11 2024 8:15A Dictated by : CHANDAN WEAVER MD This examination was interpreted and the report reviewed and electronically signed by: CHANDAN WEAVER MD on Apr 11 2024 8:17AM EST [id number] Normal [facility] aPTT PPPon 04-11-2024 aPTT Coag (PPP) [Time] 32.5 s High 23.0-32.4 [facility] Comment on above: Order Comment: Speci men Type: BLOOD SPECIMEN [facility] Address: [address] [place] [address] Performed By: #### 1 9123-9, HSTNT, 2777-1, 03150-0, 31666-0 #### [facility] CLIA [id number] [address] [place] [address] [place] ARTERIAL BLOOD GASESon 04-10 Base deficit (BldA) [Moles/Vol] -1 mmol/L Normal -2-0 [facility] Comment on above: Order Comment: Speci men Type: ARTERIAL BLOOD SPECIMEN [facility] Address: [address] [place] [address] Performed By: #### A LLBG #### [facility] CLIA [id number] [address] [place] [address] [place] Body temperature 98.6 [degF] Normal [facility] Comment on above: Order Comment: Speci men Type: ARTERIAL BLOOD SPECIMEN [facility] Address: [address] [place] [address] Performed By: #### A LLBG #### [facility] CLIA [id number] [address] [place] [address] [place] Calcium.ionized (Bld) [Mass/Vol] 1.14 mmol/L Normal 1.08-1.30 [facility] Comment on above: Order Comment: Speci men Type: ARTERIAL BLOOD SPECIMEN [facility] Address: [address] [place] [address] Performed By: #### A LLBG #### [facility] CLIA [id number] [address] [place] [address] [place] Calcium.ionized adjusted to pH 7.4 (BldA) [Moles/Vol] 1.16 mmol/L Normal 1.08-1.30 [facility] Comment on above: Order Comment: Speci men Type: ARTERIAL BLOOD SPECIMEN [facility] Address: [address] [place] [address] Performed By: #### A LLBG #### [facility] CLIA [id number] [address] [place] [address] [place] Carboxyhemoglobin (BldA) [Mass fraction] 1.1 % Normal 0.0-2.0 [facility] Comment on above: Order Comment: Speci men Type: ARTERIAL BLOOD SPECIMEN [facility] Address: [address] [place] [address] Result Comment: Carb oxyhemoglobin Reference Range for Smokers: 2.0-8.0% Performed By: #### A LLBG #### [facility] IA [id number] [address] [place] [address] [place] CO2 (Bld) [Partial pressure] 35 mm Hg Low 36-46 [facility] Comment on above: Order Comment: Speci men Type: ARTERIAL BLOOD SPECIMEN [facility] Address: [address] [place] [address] Performed By: #### A LLBG #### [facility] CLIA [id number] [address] [place] [address] [place] Glucose [Mass/Vol] 117 mg/dL High 60-105 [facility] Comment on above: Order Comment: Speci men Type: ARTERIAL BLOOD SPECIMEN [facility] Address: [address] [place] [address] Performed By: #### A LLBG #### [facility] IA [id number] [address] [place] [address] [place] HCO3 (Bld) [Moles/Vol] 23 mmol/L Normal 22-26 [facility] Comment on above: Order Comment: Speci men Type: ARTERIAL BLOOD SPECIMEN [facility] Address: [address] [place] [address] Performed By: #### A LLBG #### [facility] CLIA [id number] [address] [place] [address] [place] Hematocrit (Bld) [Volume fraction] 32.9 % Low 36.0-46.0 [facility] Comment on above: Order Comment: Speci men Type: ARTERIAL BLOOD SPECIMEN [facility] Address: [address] [place] [address] Performed By: #### A LLBG #### [facility] CLIA [id number] [address] [place] [address] [place] Hemoglobin (Bld) [Mass/Vol] 10.7 g/dL Low 11.5-15.5 [facility] Comment on above: Order Comment: Speci men Type: ARTERIAL BLOOD SPECIMEN [facility] Address: [address] [place] [address] Performed By: #### A LLBG #### [facility] CLIA [id number] [address] [place] [address] [place] Lactate [Moles/Vol] 0.7 mmol/L Normal 0.5-2.2 [facility] Comment on above: Order Comment: Speci men Type: ARTERIAL BLOOD SPECIMEN [facility] Address: [address] [place] [address] Performed By: #### A LLBG #### [facility] CLIA [id number] [address] [place] [address] [place] Methemoglobin (Bld) [Mass fraction] 1.7 % High 0.0-1.5 [facility] Comment on above: Order Comment: Speci men Type: ARTERIAL BLOOD SPECIMEN [facility] Address: [address] [place] [address] Performed By: #### A LLBG #### [facility] CLIA [id number] [address] [place] [address] [place] O2 THERAPY Hi-Flow Face Mask-Heated Normal [facility] Comment on above: Order Comment: Speci men Type: ARTERIAL BLOOD SPECIMEN [facility] Address: [address] [place] [address] Performed By: #### A LLBG #### [facility] CLIA [id number] [address] [place] [address] [place] Oxygen (Bld) [Partial pressure] 165 mm Hg High 85-95 [facility] Comment on above: Order Comment: Speci men Type: ARTERIAL BLOOD SPECIMEN [facility] Address: [address] [place] [address] Performed By: #### A LLBG #### [facility] CLIA [id number] [address] [place] [address] [place] Oxyhemoglobin (BldA) [Mass fraction] 97 % Normal 95-98 [facility] Comment on above: Order Comment: Speci men Type: ARTERIAL BLOOD SPECIMEN [facility] Address: [address] [place] [address] Performed By: #### A LLBG #### [facility] CLIA [id number] [address] [place] [address] [place] pH (Bld) 7.43 [pH] Normal 7.35-7.45 [facility] Comment on above: Order Comment: Speci men Type: ARTERIAL BLOOD SPECIMEN [facility] Address: [address] [place] [address] Performed By: #### A LLBG #### [facility] CLIA [id number] [address] [place] [address] [place] Potassium [Moles/Vol] 3.2 mmol/L Low 3.5-5.0 [facility] Comment on above: Order Comment: Speci men Type: ARTERIAL BLOOD SPECIMEN [facility] Address: [address] [place] [address] Performed By: #### A LLBG #### [facility] CLIA [id number] [address] [place] [address] [place] Sodium [Moles/Vol] 139 mmol/L Normal 136-144 [facility] Comment on above: Order Comment: Speci men Type: ARTERIAL BLOOD SPECIMEN [facility] Address: [address] [place] [address] Performed By: #### A LLBG #### [facility] CLIA [id number] [address] [place] [address] [place] C diff Tox gens Stl Ql RAMANDEEP+p robeon 04-10-2024 C. difficile toxin genes RAMANDEEP+probe Ql (Stl) Negative Normal Negative for C. difficile toxin by PCR [facility] Comment on above: Order Comment: Speci men Type: BLOOD SPECIMEN [facility] Address: [address] [place] [address] Performed By: #### 1 9123-9, HSTNT, 2777-1, 82454-4, 40243-2 #### [facility] CLIA [id number] [address] [place] [address] [place] CBC panel Auto (Bld)on 04-10 Erythrocyte distribution width (RBC) [Ratio] 19.9 % High 11.5-15.0 [facility] Comment on above: Order Comment: Speci men Type: BLOOD SPECIMEN [facility] Address: [address] [place] [address] Performed By: #### 1 9123-9, HSTNT, 2777-1, 39714-8, 96028-1 #### [facility] CLIA [id number] [address] [place] [address] [place] Hematocrit (Bld) [Volume fraction] 30.0 % Low 36.0-46.0 [facility] Comment on above: Order Comment: Speci men Type: BLOOD SPECIMEN [facility] Address: [address] [place] [address] Performed By: #### 1 9123-9, HSTNT, 2777-1, 88428-4, 69496-5 #### [facility] CLIA [id number] [address] [place] [address] [place] Hemoglobin (Bld) [Mass/Vol] 9.9 g/dL Low 11.5-15.5 [facility] Comment on above: Order Comment: Speci men Type: BLOOD SPECIMEN [facility] Address: [address] [place] [address] Performed By: #### 1 9123-9, HSTNT, 277-, 87444-2, 20445-0 #### [facility] CLIA [id number] [address] [place] [address] [place] MCH (RBC) [Entitic mass] 26.1 pg Normal 26.0-34.0 [facility] Comment on above: Order Comment: Speci men Type: BLOOD SPECIMEN [facility]ing [facility]: [facility] Address: [address] [place] [address] Performed By: #### 1 9123-9, HSTNT, 2777-1, 07118-7, 03538-4 #### [facility] CLIA [id number] [address] [place] [address] [place] MCHC (RBC) [Mass/Vol] 33.0 g/dL Normal 30.5-36.0 [facility] Comment on above: Order Comment: Speci men Type: BLOOD SPECIMEN Ordering [facility]: [facility] Address: [address] [place] [address] Performed By: #### 1 9123-9, HSTNT, 2777-1, 63682-2, 14644-0 #### [facility] CLIA [id number] [address] [place] [address] [place] MCV (RBC) [Entitic vol] 79.2 fL Low 80.0-100.0 [facility] Comment on above: Order Comment: Speci men Type: BLOOD SPECIMEN Ordering [facility] Address: [address] [place] [address] Performed By: #### 1 9123-9, HSTNT, 2777-1, 61441-5, 13936-7 #### [facility] CLIA [id number] [address] [place] [address] [place] Nucleated RBC (Bld) [#/Vol] 10*3/uL Normal <0.01 [facility] Comment on above: Order Comment: Speci men Type: BLOOD SPECIMEN Ordering Facility: [facility] Address: [address] [place] [address] Performed By: #### 1 9123-9, HSTNT, 2777-1, 31063-5, 64849-5 #### [facility] CLIA [id number] [address] [place] [address] [place] Platelet mean volume (Bld) [Entitic vol] 9.2 fL Normal 9.0-12.7 [facility] Comment on above: Order Comment: Speci men Type: BLOOD SPECIMEN Ordering Facility: [facility] Address: [address] [place] [address] Performed By: #### 1 9123-9, HSTNT, 2777-1, 26274-4, 54775-5 #### [facility] CLIA [id number] [address] [place] [address] [place] Platelets (Bld) [#/Vol] 281 10*3/uL Normal 150-400 [facility] Comment on above: Order Comment: Speci men Type: BLOOD SPECIMEN Ordering Facility: [facility] Address: [address] [place] [address] Performed By: #### 1 9123-9, HSTNT, 2777-1, 78146-8, 70203-3 #### [facility] CLIA [id number] [address] [place] [address] [place] RBC (Bld) [#/Vol] 3.79 10*6/uL Low 3.90-5.20 [facility] Comment on above: Order Comment: Speci men Type: BLOOD SPECIMEN Ordering Facility: [facility] Address: [address] [place] [address] Performed By: #### 1 9123-9, HSTNT, 2777-1, 98966-9, 31625-5 #### [facility] CLIA [id number] [address] [place] [address] [place] WBC (Bld) [#/Vol] 14.01 10*3/uL High 3.70-11.00 [facility] Comment on above: Order Comment: Speci men Type: BLOOD SPECIMEN Ordering Facility: [facility] Address: [address] [place] [address] Performed By: #### 1 9123-9, HSTNT, 2777-1, 73418-2, 45416-5 #### [facility] CLIA [id number] [address] [place] [address] [place] Comprehensive metabolic 2000 panelon 04-10-2024 Albumin [Mass/Vol] 3.6 g/dL Low 3.9-4.9 [facility] Comment on above: Order Comment: Speci men Type: BLOOD SPECIMEN Ordering Facility: [facility] Address: [address] [place] [address] Performed By: #### 1 9123-9, HSTNT, 2777-1, 55765-4, 86459-4 #### [facility] CLIA [id number] [address] [place] [address] [place] ALP [Catalytic activity/Vol] 86 U/L Normal 34-123 [facility] Comment on above: Order Comment: Speci men Type: BLOOD SPECIMEN Ordering Facility: [facility] Address: [address] [place] [address] Performed By: #### 1 9123-9, HSTNT, 2777-1, 88991-4, 16599-3 #### [facility] CLIA [id number] [address] [place] [address] [place] ALT [Catalytic activity/Vol] 84 U/L High 7-38 [facility] Comment on above: Order Comment: Speci men Type: BLOOD SPECIMEN Ordering Facility: [facility] Address: [address] [place] [address] Performed By: #### 1 9123-9, HSTNT, 2777-1, 48701-4, 45389-3 #### [facility] CLIA [id number] [address] [place] [address] [place] Anion gap [Moles/Vol] 12 mmol/L Normal 8-15 [facility] Comment on above: Order Comment: Speci men Type: BLOOD SPECIMEN Ordering Facility: [facility] Address: [address] [place] [address] Performed By: #### 1 9123-9, HSTNT, 2777-1, 03937-1, 73267-2 #### [facility] CLIA [id number] [address] [place] [place] [address] [place] AST [Catalytic activity/Vol] 38 U/L High 13-35 [facility] Comment on above: Order Comment: Speci men Type: BLOOD SPECIMEN Ordering Facility: [facility] Address: [address] [place] [address] Performed By: #### 1 9123-9, HSTNT, 2777-1, 63935-9, 05448-4 #### [facility] CLIA [id number] [address] [place] [place] [address] [place] Bilirubin [Mass/Vol] 0.5 mg/dL Normal 0.2-1.3 [facility] Comment on above: Order Comment: Speci men Type: BLOOD SPECIMEN Ordering Facility: [facility] Address: [address] [place] [address] Performed By: #### 1 9123-9, HSTNT, 2777-1, 29968-9, 48976-2 #### [facility] CLIA [id number] [address] [place] [place] [address] [place] Calcium [Mass/Vol] 8.4 mg/dL Low 8.5-10.2 [facility] Comment on above: Order Comment: Speci men Type: BLOOD SPECIMEN Ordering Facility: [facility] Address: [address] [place] [address] Performed By: #### 1 9123-9, HSTNT, 2777-1, 29301-7, 08398-8 #### [facility] CLIA [id number] [address] [place] [address] [place] Chloride [Moles/Vol] 103 mmol/L Normal 98-107 [facility] Comment on above: Order Comment: Speci men Type: BLOOD SPECIMEN Ordering Facility: [facility] Address: [address] [place] [address] Performed By: #### 1 9123-9, HSTNT, 2777-1, 24328-8, 75494-5 #### [facility] CLIA [id number] [address] [place] [place] [address] [place] CO2 [Moles/Vol] 23 mmol/L Normal 22-30 [facility] Comment on above: Order Comment: Speci men Type: BLOOD SPECIMEN Ordering Facility: [facility] Address: [address] [place] [address] Performed By: #### 1 9123-9, HSTNT, 2777-1, 65837-5, 14302-1 #### [facility] CLIA [id number] [address] [place] [address] [place] Creatinine [Mass/Vol] 0.66 mg/dL Normal 0.58-0.96 [facility] Comment on above: Order Comment: Peter linn Type: BLOOD SPECIMEN Ordering Facility: [facility] Address: [address] [place] [address] Performed By: #### 1 9123-9, HSTNT, 2777-1, 47562-9, 36675-1 #### [facility] CLIA [id number] [address] [place] [address] [place] Creatinine and Glomerular filtration rate.predicted panel (S/P/Bld) 95 mL/min/1.73m??? Normal >=60 [facility] Comment on above: Order Comment: Peter linn Type: BLOOD SPECIMEN Ordering Facility: [facility] Address: [address] [place] [address] Result Comment: Kayli mated Glomerular Filtration Rate (eGFR) is calculated using the 2020 CKD-EPI creatinine equation. This equation utilizes serum creatinine, sex, and age as parameters. The creatinine assay has traceable calibration to isotope dilution-mass spectrometry. Refer to KDIGO guidelines for clinical interpretation. In patients with unstable renal function, e.g. those with acute kidney injury, the eGFR may not accurately reflect actual GFR. Performed By: #### 1 9123-9, HSTNT, 2777-1, 10017-0, 80314-2 #### [facility] CLIA [id number] [address] [place] [address] [place] Glucose [Mass/Vol] 133 mg/dL High 74-99 [facility] Comment on above: Order Comment: Peter linn Type: BLOOD SPECIMEN Ordering Facility: [facility] Address: [address] [place] [address] Result Comment: The [place] [employer] (ADA) provides guidance for cutoff values for fasting glucose and random glucose. The ADA defines fasting as no caloric intake for at least 8 hours. Fasting plasma glucose results between 100 to 125 mg/dL indicate increased risk for diabetes (prediabetes). Fasting plasma glucose results greater than or equal to 126 mg/dL meet the criteria for diagnosis of diabetes. In the absence of unequivocal hyperglycemia, results should be confirmed by repeat testing. In a patient with classic symptoms of hyperglycemia or hyperglycemic crisis, random plasma glucose results greater than or equal to 200 mg/dL meet the criteria for diagnosis of diabetes. Reference: Standards of Medical Care in Diabetes 2016, [place] [employer]. Diabetes Care. 2016.39(Suppl 1). Performed By: #### 1 9123-9, HSTNT, 2777-1, 29810-0, 49909-7 #### [facility] CLIA [id number] [address] [place] [address] [place] Potassium [Moles/Vol] 3.7 mmol/L Normal 3.7-5.1 [facility] Comment on above: Order Comment: Peter linn Type: BLOOD SPECIMEN Ordering Facility: [facility] Address: [address] [place] [address] Performed By: #### 1 9123-9, HSTNT, 2777-1, 60566-6, 43337-5 #### [facility] CLIA [id number] [address] [place] [address] [place] Protein [Mass/Vol] 5.9 g/dL Low 6.3-8.0 [facility] Comment on above: Order Comment: Peter linn Type: BLOOD SPECIMEN Ordering Facility: [facility] Address: [address] [place] [address] Performed By: #### 1 9123-9, HSTNT, 277-1, 41203-0, 06293-6 #### [facility] CLIA [id number] [address] [place] [address] [place] Sodium [Moles/Vol] 138 mmol/L Normal 136-144 [facility] Comment on above: Order Comment: Peter linn Type: BLOOD SPECIMEN Ordering Facility: [facility] Address: [address] [place] [address] Performed By: #### 1 9123-9, HSTNT, 2777-1, 73586-1, 87846-4 #### [facility] CLIA [id number] [address] [place] [address] [place] Urea nitrogen [Mass/Vol] 9 mg/dL Normal 7-21 [facility] Comment on above: Order Comment: Peter linn Type: BLOOD SPECIMEN Ordering Facility: [facility] Address: [address] [place] [address] Performed By: #### 1 9123-9, HSTNT, 2777-1, 41550-4, 46197-1 #### [facility] CLIA [id number] [address] [place] [address] [place] Magnesium SerPl-mCncon 04-10 Magnesium [Mass/Vol] 2.3 mg/dL Normal 1.7-2.3 [facility] Comment on above: Order Comment: Peter linn Type: BLOOD SPECIMEN Ordering Facility: [facility] Address: [address] [place] [address] Performed By: #### 1 9123-9, HSTNT, 2777-1, 43856-2, 84528-4 #### [facility] CLIA [id number] [address] [place] [address] [place] PT panel Coag (PPP)on 2023 INR Coag (PPP) [Relative time] 1.1 {INR} Normal 0.9-1.3 [facility] Comment on above: Order Comment: Peter linn Type: BLOOD SPECIMEN Ordering Facility: [facility] Address: [address] [place] [address] Result Comment: Aline min K Antagonist (VKA) Therapeutic Range: INR 2 to 3 (Target INR of 2.5) Note: For patients treated with VKA drugs, such as warfarin, the [place] [employer] 2012 Guideline recommends a therapeutic INR range of 2 to 3 (target INR of 2.5). This recommendation includes high-risk patients with antiphospholipid syndrome with previous arterial or venous thromboembolism, current-generation mechanical or bioprosthetic aortic heart valve replacement. Note: Patients with mechanical aortic valve replacement and additional risk factors for thromboembolic events (atrial fibrillation, previous thromboembolism, LV dysfunction, hypercoagulable conditions) or an older generation mechanical AVR (i.e., ball in-Cage) or any mechanical MVR should have a INR therapeutic range of 2.5 to 3.5 (target INR of 3). Joyce KUO, et al. Chest 2012, 141:7S-47S Margot RAMSEY, et al. [facility] 2017, 70: 252-289 Performed By: #### 1 9123-9, HSTNT, 2777-1, 56049-8, 70857-6 #### [facility] CLIA [id number] [address] [place] [address] [place] PT Coag (PPP) [Time] 11.9 s Normal 9.7-13.0 [facility] Comment on above: Order Comment: Peter linn Type: BLOOD SPECIMEN Ordering Facility: [facility] Address: [address] [place] [address] Performed By: #### 1 9123-9, HSTNT, 2777-1, 11042-9, 28714-4 #### [facility] IA [id number] [address] [place] [address] [place] Phosphate SerPl-mCncon 04-10 Phosphate [Mass/Vol] 3.5 mg/dL Normal 2.7-4.8 [facility] Comment on above: Order Comment: Peter linn Type: BLOOD SPECIMEN Ordering Facility: [facility] Address: [address] [place] [address] Performed By: #### 1 9123-9, HSTNT, 2777-1, 45799-0, 19751-2 #### [facility] CLIA [id number] [address] [place] [address] [place] THERAPY NTon 04-10-2024 THERAPY NT HNO ID: [id number] Author: CASANDRA OLIVIER, PT Service: Physical Therapy Author Type: Physical Therapist Type: Therapy (PT/OT/Speech/Resp) Filed: 04/10/2024 15:20 Note Text: Physical Therapy Evaluation Summary SERVICE DATE: 04/10/2024 SERVICE TIME: 1415 to 1453 ROOM: [place] [address] PT 6 Clicks Score: 18 DISCHARGE RECOMMENDATIONS Home PT Recommended Discharge Equipment: Wheeled Walker ASSESSMENT Response to Therapy Interventions: Good Participation in Activities, Low Activity Tolerance, Labile Vital Signs Pt demonstrating excellent functional strenght with all mobility, mainly limited by desaturation to 83% on 10L O2, RT present to change back to high flow FiO2 60% with recovery of SpO2 to approx 90%. Anticipate continued progression to home PT with continued mobility training during acute hospital stay. PRECAUTIONS Abdominal, Fall Risk, Lines/Tubes/Drains binder, SpO2 > 88% CURRENT HOSPITAL COURSE 69 y.o. F s/p robotic converted to open VHR on 04/07. 04/08: AMET to SICU for hypotension and first degree heart block. Relevant Past Medical History: COPD on 2L at home, CAD, HTN, HLD, CHF, GERD, T2DM HOME LIVING Patient Lives With: Spouse Assistance Available: Part-Time Entry To Home: Stairs, With Rail Number Of Stairs Into Home: 3 Number Of Stairs To Bed/Bath: 0 Equipment Owned: Home Oxygen PRIOR FUNCTIONAL LEVEL Within Functional Limits I ADLs, amb no AD, limited activity tolerance d/t COPD SUBJECTIVE I would like to try. THERAPY DIAGNOSIS Reduced mobility-other TREATMENT INTERVENTIONS Evaluation, Therapeutic Activity (46127) Timed Code Treatment (minutes): 23 Skilled Treatment Time (minutes): 38 TRAINING AND EDUCATION PROVIDED Bed Mobility, Benefits of In-Hospital Mobility, Discharge Planning, Energy Conservation, Exercise Program, Expected Functional Level, Patient Exercise/Therapy Program Support Needs, Positioning, Precautions/Restriction s, Role of Physical Therapy, Sitting Balance, Transfers, Standing Balance, Treatment Protocol THERAPEUTIC SKILLS USED Activity Dosing, Assessment of Tolerance Including Vitals Response to Activity, Cues for Sequencing/Proper Technique for Activity, Cuing Tactile, Cuing Verbal, Facilitation of Joint Range of Motion, Management of Critical Lines, Tubes and/or Drains, Movement Facilitation, Muscle Activation Facilitation, Postural Alignment Correction, Physical Assist FUNCTIONAL STATUS Bed Mobility Supine To Sit: Minimal Assistance Scooting: Contact Guard Assistance Transfers Sit To Stand: Contact Guard Assistance Stand To Sit: Contact Guard Assistance Bed to Chair Contact Guard Assistance Bed To Chair Transfer Type: Stepping Gait Contact Guard Assistance Gait Device: IV Pole General Deviations/Observations : Enriqueta decreased, Flexed trunk posture Gait Distance (feet): 5 ft Stairs GOALS Patient will demonstrate progress with functional mobility to allow safe discharge to home with available support and/or physical assistance. Ambulate Up and Down Steps with: Modified Independent Number of Steps: 3 Device: Rail Rehab Potential: Good PLAN PT Frequency: 3 Times Per Week Treatment Interventions: Education, Self Care / Home Management, Energy Conservation Training, Joint Mobility, Strengthening, Functional Mobility Training, Balance Training, Neuromuscular Re-education, Pain Management, Edema Management Plan for Next Visit: Gait Training SIGNATURE: Casandra Olivier, PT PATIENT NAME: Johanna Macdonald DATE: April 10, 2024 TIME: 3:20 PM Normal [facility] XR ABDOMEN 1V SUPINEon 04-10 XR ABDOMEN 1V SUPINE * * *Final Report* * * DATE OF EXAM: Apr 10 2024 5:49AM ESTELLA 5289 - XR ABDOMEN 1V SUPINE / PROCEDURE REASON: Pre/Post operative evaluation * * * * Physician Interpretation * * * * ABDOMEN, 1 VIEW 04/10/2024 labeled 0549 CLINICAL INFORMATION: Pre/Post operative evaluation TECHNIQUE: Supine frontal view, 1 image(s) COMPARISON: CT abdomen/pelvis, 04/09/2024 RESULT: Scattered surgical clips over the abdomen and pelvis. Surgical drains terminating in the right pelvis and left lower quadrant. Few scattered small bowel loops at the upper limits of normal in caliber. Gas present distally in nondilated colon. Excreted contrast in the urinary bladder from recent CT. Buenrostro catheter in bladder. IMPRESSION: Few borderline dilated small bowel loops, possibly mild ileus. Internet Database Specialist: PSCB Transcribe Date/Time: Apr 10 2024 8:17A Dictated by : JOSE LOZANO MD This examination was interpreted and the report reviewed and electronically signed by: JOSE LOZANO MD on Apr 10 2024 8:18AM EST [id number] Normal [facility] XR CHEST 1V FRONTAL PORTon 0 04-10-2024 XR CHEST 1V FRONTAL PORT * * *Final Report* * * DATE OF EXAM: Apr 10 2024 5:36AM ESTELLA 5376 - XR CHEST 1V FRONTAL PORT / PROCEDURE REASON: Post-operative/post-pro cedure assessment * * * * Physician Interpretation * * * * EXAMINATION: CHEST RADIOGRAPH (PORTABLE SINGLE VIEW AP) Exam Date/Time: 04/10/2024 5:36 AM Clinical History: Post-operative/post-pro cedure assessment MQ: [id number] Comparison: 1 day prior RESULT: Lines, tubes, and devices: None. Lungs and pleura: Small bilateral pleural effusions are noted with adjacent atelectasis. No consolidation is noted. No pneumothorax. Cardiomediastinal silhouette: Mild enlargement of the cardiac silhouette is noted. Calcification of the aortic arch is noted. Central pulmonary arteries are ectatic. Other: . IMPRESSION: See result. Internet Database Specialist: PSCB Transcribe Date/Time: Apr 10 2024 7:23A Dictated by : SACHI JENNINGS MD This examination was interpreted and the report reviewed and electronically signed by: SACHI JENNINGS MD on Apr 10 2024 7:24AM EST [id number] Normal [facility] aPTT PPPon 04-10-2024 aPTT Coag (PPP) [Time] 31.6 s Normal 23.0-32.4 [facility] Comment on above: Order Comment: Speci men Type: BLOOD SPECIMEN Ordering Facility: [facility] Address: [address] [place] [address] Performed By: #### 1 9123-9, HSTNT, 2777-1, 87046-3, 08549-7 #### [facility] CLIA [id number] [address] [place] [address] [place] ARTERIAL BLOOD GASESon 04-09 Base deficit (BldA) [Moles/Vol] -1 mmol/L Normal -2-0 [facility] Comment on above: Order Comment: Peter linn Type: BLOOD SPECIMEN Ordering Facility: [facility] Address: [address] [place] [address] Performed By: #### 1 9123-9, HSTNT, 2777-1, 68097-0, 36653-9 #### [facility] CLIA [id number] [address] [place] [address] [place] Body temperature 98.6 [degF] Normal [facility] Comment on above: Order Comment: Speci men Type: BLOOD SPECIMEN Ordering Facility: [facility] Address: [address] [place] [address] Performed By: #### 1 9123-9, HSTNT, 2777-1, 12860-9, 79116-3 #### [facility] CLIA [id number] [address] [place] [address] [place] Calcium.ionized (Bld) [Mass/Vol] 1.15 mmol/L Normal 1.08-1.30 [facility] Comment on above: Order Comment: Speci men Type: BLOOD SPECIMEN Ordering Facility: [facility] Address: [address] [place] [address] Performed By: #### 1 9123-9, HSTNT, 2777-1, 87143-8, 84001-5 #### [facility] CLIA [id number] [address] [place] [address] [place] Calcium.ionized adjusted to pH 7.4 (BldA) [Moles/Vol] 1.14 mmol/L Normal 1.08-1.30 [facility] Comment on above: Order Comment: Speci men Type: BLOOD SPECIMEN Ordering Facility: [facility] Address: [address] [place] [address] Performed By: #### 1 9123-9, HSTNT, 2777-1, 99708-6, 49196-1 #### [facility] CLIA [id number] [address] [place] [address] [place] Carboxyhemoglobin (BldA) [Mass fraction] 1.6 % Normal 0.0-2.0 [facility] Comment on above: Order Comment: Speci men Type: BLOOD SPECIMEN Ordering Facility: [facility] Address: [address] [place] [address] Result Comment: Carb oxyhemoglobin Reference Range for Smokers: 2.0-8.0% Performed By: #### 1 9123-9, HSTNT, 2777-1, 97101-2, 24900-3 #### [facility] CLIA [id number] [address] [place] [address] [place] CO2 (Bld) [Partial pressure] 38 mm Hg Normal 36-46 [facility] Comment on above: Order Comment: Speci men Type: BLOOD SPECIMEN Ordering Facility: [facility] Address: [address] [place] [address] Performed By: #### 1 9123-9, HSTNT, 2777-1, 68664-3, 91287-8 #### [facility] CLIA [id number] [address] [place] [address] [place] FIO2 65 % Normal [facility] Comment on above: Order Comment: Speci men Type: BLOOD SPECIMEN Ordering Facility: [facility] Address: [address] [place] [address] Performed By: #### 1 9123-9, HSTNT, 2777-1, 22972-0, 59465-7 #### [facility] CLIA [id number] [address] [place] [address] [place] Glucose [Mass/Vol] 218 mg/dL High 60-105 [facility] Comment on above: Order Comment: Speci men Type: BLOOD SPECIMEN Ordering Facility: [facility] Address: [address] [place] [address] Performed By: #### 1 9123-9, HSTNT, 2777-1, 47906-0, 72540-5 #### [facility] CLIA [id number] [address] [place] [address] [place] HCO3 (Bld) [Moles/Vol] 23 mmol/L Normal 22-26 [facility] Comment on above: Order Comment: Speci men Type: BLOOD SPECIMEN Ordering Facility: [facility] Address: [address] [place] [address] Performed By: #### 1 9123-9, HSTNT, 2777-1, 91367-7, 61143-8 #### [facility] CLIA [id number] [address] [place] [address] [place] Hematocrit (Bld) [Volume fraction] 34.1 % Low 36.0-46.0 [facility] Comment on above: Order Comment: Speci men Type: BLOOD SPECIMEN Ordering Facility: [facility] Address: [address] [place] [address] Performed By: #### 1 9123-9, HSTNT, 2777-1, 91031-6, 90098-9 #### [facility] CLIA [id number] [address] [place] [address] [place] Hemoglobin (Bld) [Mass/Vol] 11.1 g/dL Low 11.5-15.5 [facility] Comment on above: Order Comment: Speci men Type: BLOOD SPECIMEN Ordering Facility: [facility] Address: [address] [place] [address] Performed By: #### 1 9123-9, HSTNT, 2777-1, 74017-5, 03521-0 #### [facility] CLIA [id number] [address] [place] [address] [place] Lactate [Moles/Vol] 1.2 mmol/L Normal 0.5-2.2 [facility] Comment on above: Order Comment: Speci men Type: BLOOD SPECIMEN Ordering Facility: [facility] Address: [address] [place] [address] Performed By: #### 1 9123-9, HSTNT, 2777-1, 44216-3, 57521-8 #### [facility] CLIA [id number] [address] [place] [address] [place] Methemoglobin (Bld) [Mass fraction] 0.8 % Normal 0.0-1.5 [facility] Comment on above: Order Comment: Speci men Type: BLOOD SPECIMEN Ordering Facility: [facility] Address: [address] [place] [address] Performed By: #### 1 9123-9, HSTNT, 2777-1, 86829-5, 11793-0 #### [facility] CLIA [id number] [address] [place] [address] [place] O2 THERAPY Hi-Flow Nasal Cannula-Heated Normal [facility] Comment on above: Order Comment: Speci men Type: BLOOD SPECIMEN Ordering Facility: [facility] Address: [address] [place] [address] Performed By: #### 1 9123-9, HSTNT, 2777-1, 55665-7, 26122-2 #### [facility] CLIA [id number] [address] [place] [address] [place] Oxygen (Bld) [Partial pressure] 67 mm Hg Low 85-95 [facility] Comment on above: Order Comment: Speci men Type: BLOOD SPECIMEN Ordering Facility: [facility] Address: [address] [place] [address] Performed By: #### 1 9123-9, HSTNT, 7-1, 97184-2, 56635-6 #### [facility] CLIA [id number] [address] [place] [address] [place] Oxyhemoglobin (BldA) [Mass fraction] 92 % Low 95-98 [facility] Comment on above: Order Comment: Speci men Type: BLOOD SPECIMEN Ordering Facility: [facility] Address: [address] [place], [place] [address] Performed By: #### 1 9123-9, HSTNT, 2777-1, 27620-2, 14537-6 #### [facility] CLIA [id number] [address] [place], [place] [id number] [place] pH (Bld) 7.39 [pH] Normal 7.35-7.45 [facility] Comment on above: Order Comment: Speci men Type: BLOOD SPECIMEN Ordering Facility: [facility] Address: [address] [place] [address] Performed By: #### 1 9123-9, HSTNT, 2777-1, 24986-1, 83725-9 #### [facility] CLIA [id number] [address] [place] [address] [place] PO2 / FIO2 RATIO 103 mmHg Low >300 [facility] Comment on above: Order Comment: Speci men Type: BLOOD SPECIMEN Ordering Facility: [facility] Address: [address] [place] [address] Performed By: #### 1 9123-9, HSTNT, 2777-1, 77466-9, 73952-7 #### [facility] CLIA [id number] [address] [place] [address] [place] Potassium [Moles/Vol] 4.0 mmol/L Normal 3.5-5.0 [facility] Comment on above: Order Comment: Speci men Type: BLOOD SPECIMEN Ordering Facility: [facility] Address: [address] [place] [address] Performed By: #### 1 9123-9, HSTNT, 2777-1, 45667-7, 13375-9 #### [facility] CLIA [id number] [address] [place] [address] [place] Sodium [Moles/Vol] 137 mmol/L Normal 136-144 [facility] Comment on above: Order Comment: Speci men Type: BLOOD SPECIMEN Ordering Facility: [facility] Address: [address] [place] [address] Performed By: #### 1 9123-9, HSTNT, 2777-1, 05112-8, 68657-9 #### [facility] CLIA [id number] [address] [place] [address] [place] Base deficit (BldA) [Moles/Vol] -1 mmol/L Normal -2-0 [facility] Comment on above: Order Comment: Speci men Type: ARTERIAL BLOOD SPECIMENOrdering Facility: [facility] Address: [address] [place] [address] Performed By: #### A LLBG ####[facility] [id number] [place] [address] [place] Body temperature 98.6 [degF] Normal [facility] Comment on above: Order Comment: Speci men Type: ARTERIAL BLOOD SPECIMENOrdering Facility: [facility] Address: [address] [place] [address] Performed By: #### A LLBG ####[facility] [id number] [place] [address] [place] Calcium.ionized (Bld) [Mass/Vol] 1.16 mmol/L Normal 1.08-1.30 [facility] Comment on above: Order Comment: Speci men Type: ARTERIAL BLOOD SPECIMENOrdering Facility: [facility] Address: [address] [place] [address] Performed By: #### A LLBG ####[facility] LABIA [id number] [place] [address] [place] Calcium.ionized adjusted to pH 7.4 (BldA) [Moles/Vol] 1.16 mmol/L Normal 1.08-1.30 [facility] Comment on above: Order Comment: Speci men Type: ARTERIAL BLOOD SPECIMENOrdering Facility: [facility] Address: [address] [place] [address] Performed By: #### A LLBG ####[facility] LABCLIA [id number] [place] [address] [place] Carboxyhemoglobin (BldA) [Mass fraction] 1.3 % Normal 0.0-2.0 [facility] Comment on above: Order Comment: Speci men Type: ARTERIAL BLOOD SPECIMENOrdering Facility: [facility] Address: [address] [place] [address] Result Comment: Carb oxyhemoglobin Reference Range for Smokers: 2.0-8.0% Performed By: #### A LLBG ####[facility] LABCLIA [id number] [place] [address] [place] CO2 (Bld) [Partial pressure] 40 mm Hg Normal 36-46 [facility] Comment on above: Order Comment: Speci men Type: ARTERIAL BLOOD SPECIMENOrdering Facility: [facility] Address: [address] [place] [address] Performed By: #### A LLBG ####[facility] LABCLIA [id number] [place] [address] [place] FIO2 80 % Normal [facility] Comment on above: Order Comment: Speci men Type: ARTERIAL BLOOD SPECIMENOrdering Facility: [facility] Address: [address] [place] [address] Performed By: #### A LLBG ####[facility] LABCLIA [id number] [place] [address] [place] Glucose [Mass/Vol] 200 mg/dL High 60-105 [facility] Comment on above: Order Comment: Speci men Type: ARTERIAL BLOOD SPECIMENOrdering Facility: [facility] Address: [address] [place] [address] Performed By: #### A LLBG ####[facility] LABCLIA [id number] [place] [address] [place] HCO3 (Bld) [Moles/Vol] 24 mmol/L Normal 22-26 [facility] Comment on above: Order Comment: Speci men Type: ARTERIAL BLOOD SPECIMENOrdering Facility: [facility] Address: [address] [place] [address] Performed By: #### A LLBG ####[facility] LABCLIA [id number] [place] [address] [place] Hematocrit (Bld) [Volume fraction] 33.9 % Low 36.0-46.0 [facility] Comment on above: Order Comment: Speci men Type: ARTERIAL BLOOD SPECIMENOrdering Facility: [facility] Address: [address] [place] [address] Performed By: #### A LLBG ####[facility] LABCLIA [id number] [place] [address] [place] Hemoglobin (Bld) [Mass/Vol] 11.0 g/dL Low 11.5-15.5 [facility] Comment on above: Order Comment: Speci men Type: ARTERIAL BLOOD SPECIMENOrdering Facility: [facility] Address: [address] [place] [address] Performed By: #### A LLBG ####[facility] LABIA [id number] [place] [address] [place] Lactate [Moles/Vol] 0.8 mmol/L Normal 0.5-2.2 [facility] Comment on above: Order Comment: Speci men Type: ARTERIAL BLOOD SPECIMENOrdering Facility: [facility] Address: [address] [place] [address] Performed By: #### A LLBG ####[facility] LABCLIA [id number] [place] [address] [place] Methemoglobin (Bld) [Mass fraction] 0.8 % Normal 0.0-1.5 [facility] Comment on above: Order Comment: Speci men Type: ARTERIAL BLOOD SPECIMENOrdering Facility: [facility] Address: [address] [place] [address] Performed By: #### A LLBG ####[facility] LABIA [id number] [place] [address] [place] O2 THERAPY Hi-Flow Nasal Cannula-Heated Normal [facility] Comment on above: Order Comment: Speci men Type: ARTERIAL BLOOD SPECIMENOrdering Facility: [facility] Address: [address] [place] [address] Performed By: #### A LLBG ####[facility] LABCLIA [id number] [place] [address] [place] Oxygen (Bld) [Partial pressure] 60 mm Hg Low 85-95 [facility] Comment on above: Order Comment: Speci men Type: ARTERIAL BLOOD SPECIMENOrdering Facility: [facility] Address: [address] [place] [address] Performed By: #### A LLBG ####[facility] LABCLIA [id number] [place] [address] [place] Oxyhemoglobin (BldA) [Mass fraction] 89 % Low 95-98 [facility] Comment on above: Order Comment: Speci men Type: ARTERIAL BLOOD SPECIMENOrdering Facility: [facility] Address: [address] [place] [address] Performed By: #### A LLBG ####[facility] LABCLIA [id number] [place] [address] [place] pH (Bld) 7.39 [pH] Normal 7.35-7.45 [facility] Comment on above: Order Comment: Speci men Type: ARTERIAL BLOOD SPECIMENOrdering Facility: [facility] Address: [address] [place] [address] Performed By: #### A LLBG ####[facility] LABCLIA [id number] [place] [address] [place] PO2 / FIO2 RATIO 75 mmHg Low >300 [facility] Comment on above: Order Comment: Speci men Type: ARTERIAL BLOOD SPECIMENOrdering Facility: [facility] Address: [address] [place] [address] Performed By: #### A LLBG ####[facility] LABCLIA [id number] [place] [address] [place] Potassium [Moles/Vol] 4.3 mmol/L Normal 3.5-5.0 [facility] Comment on above: Order Comment: Speci men Type: ARTERIAL BLOOD SPECIMENOrdering Facility: [facility] Address: [address] [place] [address] Performed By: #### A LLBG ####[facility] LABCLIA [id number] [place] [address] [place] Sodium [Moles/Vol] 138 mmol/L Normal 136-144 [facility] Comment on above: Order Comment: Speci men Type: ARTERIAL BLOOD SPECIMENOrdering Facility: [facility] Address: [address] [place] [address] Performed By: #### A LLBG ####[facility] LABCLIA [id number] [place] [address] [place] CBC panel Auto (Bld)on 04-09 Erythrocyte distribution width (RBC) [Ratio] 21.6 % High 11.5-15.0 [facility] Comment on above: Order Comment: Speci men Type: BLOOD SPECIMEN [facility] Address: [address] [place] [address] Performed By: #### 1 9123-9, HSTNT, 2777-1, 97046-0, 35038-8 #### [facility] CLIA [id number] [address] [place] [place] [address] [place] Hematocrit (Bld) [Volume fraction] 25.5 % Low 36.0-46.0 [facility] Comment on above: Order Comment: Speci men Type: BLOOD SPECIMEN [facility] Address: [address] [place] [address] Performed By: #### 1 9123-9, HSTNT, 2777-1, 89790-9, 85309-7 #### [facility] CLIA [id number] [address] [place] [place] [address] [place] Hemoglobin (Bld) [Mass/Vol] 8.4 g/dL Low 11.5-15.5 [facility] Comment on above: Order Comment: Speci men Type: BLOOD SPECIMEN [facility] Address: [address] [place] [address] Performed By: #### 1 9123-9, HSTNT, 2777-1, 27661-2, 50456-0 #### [facility] CLIA [id number] [address] [place] [place] [address] [place] MCH (RBC) [Entitic mass] 26.6 pg Normal 26.0-34.0 [facility] Comment on above: Order Comment: Speci men Type: BLOOD SPECIMEN [facility] Address: [address] [place] [address] Performed By: #### 1 9123-9, HSTNT, 2777-1, 64202-1, 71816-3 #### [facility] CLIA [id number] [address] [place] [address] [place] MCHC (RBC) [Mass/Vol] 32.9 g/dL Normal 30.5-36.0 [facility] Comment on above: Order Comment: Speci men Type: BLOOD SPECIMEN [facility] Address: [address] [place] [address] Performed By: #### 1 9123-9, HSTNT, 2777-1, 54857-4, 25906-2 #### [facility] CLIA [id number] [address] [place] [address] [place] MCV (RBC) [Entitic vol] 80.7 fL Normal 80.0-100.0 [facility] Comment on above: Order Comment: Speci men Type: BLOOD SPECIMEN [facility] Address: [address] [place] [address] Performed By: #### 1 9123-9, HSTNT, 2777-1, 59922-4, 14144-5 #### [facility] CLIA [id number] [address] [place] [address] [place] Nucleated RBC (Bld) [#/Vol] 10*3/uL Normal <0.01 [facility] Comment on above: Order Comment: Speci men Type: BLOOD SPECIMEN [facility] Address: [address] [place] [address] Performed By: #### 1 9123-9, HSTNT, 2777-1, 16132-3, 23737-6 #### [facility] CLIA [id number] [address] [place] [address] [place] Platelet mean volume (Bld) [Entitic vol] 9.6 fL Normal 9.0-12.7 [facility] Comment on above: Order Comment: Speci men Type: BLOOD SPECIMEN [facility] Address: [address] [place] [address] Performed By: #### 1 9123-9, HSTNT, 2777-1, 06954-7, 46622-3 #### [facility] CLIA [id number] [address] [place] [address] [place] Platelets (Bld) [#/Vol] 226 10*3/uL Normal 150-400 [facility] Comment on above: Order Comment: Speci men Type: BLOOD SPECIMEN [facility] Address: [address] [place] [address] Performed By: #### 1 9123-9, HSTNT, 2777-1, 05276-8, 77543-1 #### [facility] CLIA [id number] [address] [place] [address] [place] RBC (Bld) [#/Vol] 3.16 10*6/uL Low 3.90-5.20 [facility] Comment on above: Order Comment: Speci men Type: BLOOD SPECIMEN [facility] Address: [address] [place] [address] Performed By: #### 1 9123-9, HSTNT, 2777-1, 29698-6, 75382-6 #### [facility] CLIA [id number] [address] [place] [address] [place] WBC (Bld) [#/Vol] 10.93 10*3/uL Normal 3.70-11.00 [facility] Comment on above: Order Comment: Speci men Type: BLOOD SPECIMEN [facility] Address: [address] [place] [address] Performed By: #### 1 9123-9, HSTNT, 2777-1, 05150-0, 36615-5 #### [facility] CLIA [id number] [address] [place] [address] [place] [address] ABD/PEL W IVCONon 024 CT ABD/PEL W IVCON * * *Final Report* * * DATE OF EXAM: Apr 09 2024 10:07PM [facility] [place]/PEL W IVCON / PROCEDURE REASON: Bowel obstruction suspected * * * * Physician Interpretation * * * * EXAMINATION: CT ABDOMEN AND PELVIS WITH IV CONTRAST CLINICAL HISTORY: Status post robotic converted to open ventral hernia repair on 04/07/2024 complicated by suspected hemorrhagic shock. Concern for small bowel obstruction. TECHNIQUE: CT of the abdomen and pelvis was performed using standard technique, scanning from just above the dome of the diaphragm to the symphysis pubis. MQ: CTAP_3 Contrast: IV: 100 ml of Omnipaque 350 CT Radiation dose: Integrated Dose-length product (DLP) for this visit = 963 mGy*cm. CT Dose Reduction Employed: mAs-kVp adjusted based on patient size-age COMPARISON: CT abdomen pelvis, 10/14/2023. RESULT: Liver: No mass. Biliary: No bile duct dilation. Gallbladder is absent. Spleen: No mass. No splenomegaly. Pancreas: No mass or duct dilation. Adrenals: No mass. Kidneys: No mass, calculus or hydronephrosis. GI tract: Few borderline dilated small bowel loops, measuring up to 3.5 cm in the left lower quadrant without focal transition point. No bowel wall thickening. Appendix is not visualized. Lymph nodes: No abdominal or pelvic lymphadenopathy. Mesentery/Peritoneum: Postoperative changes from ventral abdominal wall hernia repair with hernia mesh. Expected postoperative findings, including small volume pneumoperitoneum, trace free fluid, and anterior abdominal mesenteric stranding. Right and left approach surgical drains that terminate in the left lower quadrant and right lower quadrant respectively. No residual ventral abdominal wall hernia. Retroperitoneum: No mass. Vasculature: - Abdominal aorta and iliac arteries: Atherosclerotic calcifications without aneurysm. - Celiac and SMA: Atherosclerotic calcifications at the origins. - Portal venous system (SMV, splenic vein, portal vein and branches): Patent. - Hepatic veins: Patent. Pelvis: No mass or fluid collection. Hysterectomy. Decompressed bladder with Buenrostro. Small foci of gas within the bladder likely related to instrumentation. Small volume pelvic hemoperitoneum. Bones/Soft Tissues: Midline abdominal scarring and several foci of subcutaneous gas presumed related to recent surgery. Degenerative changes of the spine. Lower thorax: A chest CT performed will be reported separately. Localizer images: No additional findings. IMPRESSION: Few borderline dilated small bowel loops without transition point, likely ileus. Small volume pelvic hemoperitoneum. Additional expected postoperative changes status post ventral abdominal wall hernia repair. Internet Database Specialist: [employer] Transcribe Date/Time: Apr 09 2024 10:34P Dictated by : LILA SHEETS MD This examination was interpreted and the report reviewed and electronically signed by: IRENE HANSON MD on Apr 10 2024 8:00AM EST [id number] Normal [facility] CT CHEST W IVCON PEon 2023 CT CHEST W IVCON PE * * *Final Report* * * DATE OF EXAM: Apr 09 2024 10:07PM [facility] [place] CT CHEST W IVCON PE / PROCEDURE REASON: Pulmonary embolism (PE) suspected, unknown D-dimer * * * * Physician Interpretation * * * * EXAMINATION: CHEST CT WITH CONTRAST (PULMONARY EMBOLISM PROTOCOL) Clinical History: 69-year-old female with a history of COPD on 2 L of oxygen, coronary artery disease status post PCI, hypertension, type 2 diabetes, and compared status post recent hernia repair on 04/07/2024. The patient has hypovolemic versus cardiogenic shock. Assess for pulmonary embolism. Technique: Spiral CT acquisition of the chest from the thoracic inlet to the upper abdomen following IV contrast. Axial 1 and 3 mm thick slices plus coronal and sagittal reformatted images. MQ: CTCP_5 Contrast: 100 mL Omnipaque [address] Radiation dose: Integrated Dose-length product (DLP) for this visit = 963 mGy*cm CT Dose Reduction Employed: mAs-kVp adjusted based on patient size-age Comparison: Chest radiograph dated 05/10/2024; no prior chest CT is available for comparison; abdominal CT dated 10/14/2023 RESULT: Limitations: Relatively poor contrast bolus. Mild respiratory motion. Evaluation for thromboembolic disease: - Right heart chambers: No thromboembolic disease. - Main pulmonary arteries: No thromboembolic disease. - Lobar pulmonary arteries: No thromboembolic disease. - Segmental pulmonary arteries: No thromboembolic disease. - Subsegmental pulmonary arteries: No thromboembolic disease. - Additional pulmonary artery findings: The main pulmonary artery is dilated measuring 3.2 cm in diameter, a finding associated with pulmonary hypertension. Lines, tubes, and devices: None. Lung parenchyma and airways: Images of the lungs are mildly degraded by respiratory motion. Dependent consolidative opacities in the lower lobes bilaterally, right middle lobe, and lingula have developed since the prior chest CT from 10/14/2023. There are air bronchograms within these regions of consolidation. Minimal upper lobe predominant centrilobular emphysema is present. A few ill-defined ground-glass opacities are present in the left upper lobe, image 131 and 142 are present. No suspicious pulmonary nodule. No septal thickening. The central airways are patent without suspicious endobronchial lesion.. Pleural space: Small dependent bilateral pleural effusions are present. No pleural thickening. No pneumothorax. Lower neck, lymph nodes, and mediastinum: The imaged thyroid gland is unremarkable. No supraclavicular or axillary lymphadenopathy. No enlarged mediastinal or hilar lymph nodes. The esophagus is decompressed. Heart, pericardium, and thoracic vessels: Mild to moderate atherosclerosis is present within the thoracic aorta which is nondilated measuring 3.4 cm in the mid ascending segment. Mild to moderate severity scattered coronary artery atherosclerotic calcifications are present, however, this exam is not optimized for coronary artery assessment. Heart size appears normal. No pericardial effusion. Bones and soft tissues: No destructive lytic or blastic bone lesion. Multilevel endplate degenerative changes are present throughout the imaged spine. Upper abdomen: A CT examination of the abdomen and pelvis, which is performed concurrently, is reported separately. Localizer images: No additional findings. IMPRESSION: 1. No CT evidence of a pulmonary embolism. 2. Dependent consolidative opacities in the lower lobes, right middle lobe, and lingula have an appearance most suggestive of atelectasis although a component of superimposed pneumonia/aspiration is possible. 3. Small bilateral pleural effusions. 4. A few ill-defined left upper lobe ground-glass opacities are nonspecific although are likely infectious/inflammatory in etiology. Internet Database Specialist: PSCB Transcribe Date/Time: Apr 09 2024 10:11P Dictated by : CHANDAN WEAVER MD This examination was interpreted and the report reviewed and electronically signed by: CHANDAN WEAVER MD on Apr 09 2024 10:37PM EST [id number] Normal [facility] Comprehensive metabolic 2000 panelon 04-09-2024 Albumin [Mass/Vol] 3.7 g/dL Low 3.9-4.9 [facility] Comment on above: Order Comment: Santhoshi kaveh Type: BLOOD SPECIMENOrdering Facility: [facility] Address: [address] [place] [address] Performed By: #### 2 4323-8, HSTNT ####[facility] LABCLIA [id number] [place] [address] [place] ALP [Catalytic activity/Vol] 72 U/L Normal 34-123 [facility] Comment on above: Order Comment: Peter linn Type: BLOOD SPECIMENOrdering Facility: [facility] Address: [address] [place] [address] Performed By: #### 2 4323-8, HSTNT ####[facility] LABCLIA [id number] [place] [address] [place] ALT [Catalytic activity/Vol] 103 U/L High 7-38 [facility] Comment on above: Order Comment: Peter linn Type: BLOOD SPECIMENOrdering Facility: [facility] Address: [address] [place] [address] Performed By: #### 2 4323-8, HSTNT ####[facility] LABCLIA [id number] [place] [address] [place] Anion gap [Moles/Vol] 13 mmol/L Normal 8-15 [facility] Comment on above: Order Comment: Speci men Type: BLOOD SPECIMENOrdering Facility: [facility] Address: [address] [place] [address] Performed By: #### 2 4323-8, HSTNT ####[facility] LABCLIA [id number] [place] [address] [place] AST [Catalytic activity/Vol] 76 U/L High 13-35 [facility] Comment on above: Order Comment: Speci men Type: BLOOD SPECIMENOrdering Facility: [facility] Address: [address] [place] [address] Performed By: #### 2 4323-8, HSTNT ####[facility] LABCLIA [id number] [place] [address] [place] Bilirubin [Mass/Vol] 0.6 mg/dL Normal 0.2-1.3 [facility] Comment on above: Order Comment: Speci men Type: BLOOD SPECIMENOrdering Facility: [facility] Address: [address] [place] [address] Performed By: #### 2 4323-8, HSTNT ####[facility]CLIA [id number] [place] [address] [place] Calcium [Mass/Vol] 8.0 mg/dL Low 8.5-10.2 [facility] Comment on above: Order Comment: Speci men Type: BLOOD SPECIMENOrdering Facility: [facility] Address: [address] [place] [address] Performed By: #### 2 4323-8, HSTNT ####[facility]CLIA [id number] [place] [address] [place] Chloride [Moles/Vol] 102 mmol/L Normal 98-107 [facility] Comment on above: Order Comment: Speci men Type: BLOOD SPECIMENOrdering Facility: [facility] Address: [address] [place] [address] Performed By: #### 2 4323-8, HSTNT ####[facility]CLIA [id number] [place] [address] [place] CO2 [Moles/Vol] 22 mmol/L Normal 22-30 [facility] Comment on above: Order Comment: Speci men Type: BLOOD SPECIMENOrdering Facility: [facility] Address: [address] [place] [address] Performed By: #### 2 4323-8, HSTNT ####[facility]CLIA [id number] [address] [place] Creatinine [Mass/Vol] 0.83 mg/dL Normal 0.58-0.96 [facility] Comment on above: Order Comment: Speci men Type: BLOOD SPECIMENOrdering Facility: [facility] Address: [address] [place] [address] Performed By: #### 2 4323-8, HSTNT ####[facility]CLIA [id number] [address] [place] [facility] Creatinine and Glomerular filtration rate.predicted panel (S/P/Bld) 76 mL/min/1.73m??? Normal >=60 [facility] Comment on above: Order Comment: Speci men Type: BLOOD SPECIMENOrdering Facility: [facility] Address: [address] [place] [address] Result Comment: Kayli mated Glomerular Filtration Rate (eGFR) is calculated using the 2020 CKD-EPI creatinine equation. This equation utilizes serum creatinine, sex, and age as parameters. The creatinine assay has traceable calibration to isotope dilution-mass spectrometry. Refer to KDIGO guidelines for clinical interpretation. In patients with unstable renal function, e.g. those with acute kidney injury, the eGFR may not accurately reflect actual GFR. Performed By: #### 2 4323-8, HSTNT ####[facility]CLIA [id number] [place] [address] [place] Glucose [Mass/Vol] 106 mg/dL High 74-99 [facility] Comment on above: Order Comment: Speci men Type: BLOOD SPECIMENOrdering Facility: [facility] Address: [address] [place] [address] Result Comment: The [place] [employer] (ADA) provides guidance for cutoff values for fasting glucose and random glucose. The ADA defines fasting as no caloric intake for at least 8 hours. Fasting plasma glucose results between 100 to 125 mg/dL indicate increased risk for diabetes (prediabetes). Fasting plasma glucose results greater than or equal to 126 mg/dL meet the criteria for diagnosis of diabetes. In the absence of unequivocal hyperglycemia, results should be confirmed by repeat testing. In a patient with classic symptoms of hyperglycemia or hyperglycemic crisis, random plasma glucose results greater than or equal to 200 mg/dL meet the criteria for diagnosis of diabetes. Reference: Standards of Medical Care in Diabetes 2016, [place] [employer]. Diabetes Care. 2016.39(Suppl 1). Performed By: #### 2 4323-8, HSTNT ####[facility] [id number] [place] [address] [place] Potassium [Moles/Vol] 3.8 mmol/L Normal 3.7-5.1 [facility] Comment on above: Order Comment: Speci men Type: BLOOD SPECIMENOrdering Facility: [facility] Address: [address] [place] [address] Performed By: #### 2 4323-8, HSTNT ####[facility] [id number] [place] [address] [place] Protein [Mass/Vol] 5.3 g/dL Low 6.3-8.0 [facility] Comment on above: Order Comment: Speci men Type: BLOOD SPECIMENOrdering Facility: [facility] Address: [address] [place] [address] Performed By: #### 2 4323-8, HSTNT ####[facility] LABCLIA [id number] [place] [address] [place] Sodium [Moles/Vol] 137 mmol/L Normal 136-144 [facility] Comment on above: Order Comment: Speci men Type: BLOOD SPECIMENOrdering Facility: [facility] Address: [address] [place] [address] Performed By: #### 2 4323-8, HSTNT ####[facility] LABCLIA [id number] [place] [address] [place] Urea nitrogen [Mass/Vol] 10 mg/dL Normal 7-21 [facility] Comment on above: Order Comment: Speci men Type: BLOOD SPECIMENOrdering Facility: [facility] Address: [address] [place] [address] Performed By: #### 2 4323-8, HSTNT ####[facility] LABCLIA [id number] [place] [address] [place] ECHOon 04-09-2024 Echocardiography Echocardiography Report: Transthoracic Echo [facility] Bedside Date of service: 04/09/2024 5:34:18 AM GAMING Ordering physician: CHRISTELLE ANDERSON Indication: Hypotension Technologist: Radha Diehl Fellow: Chandan Bridges MD Interpreting physician: Andres Vasquez MD PATIENT: Name: MRS. JOHANNA MACDONALD : 1955 Age: 69 years Gender: F History of hypertension, diabetes mellitus and coronary artery disease. Primary rhythm: sinus. Height: 149.86 cm BSA: 1.74 m Weight: 72.58 kg BMI: 32.3 kg/m Heart rate 78 bpm Blood pressure 121/58 mmHg Technically difficult exam due to post op, bandages/chest tubes/wound, suboptimal positioning, body habitus and COPD. Color Doppler was utilized to interrogate the cardiac valves assessed and spectral Doppler was utilized to determine the flow velocities and pressure gradients reported in this exam. MEASUREMENTS: Value Indexed Normal Max aortic dimension 3.4 cm Ao < 3.8 Left atrial volume 66 ml (biplane A-L) 38 ml/m Chastity <= 34 LV ID (diastole) 5.1 cm (2D) 2.93 cm/m LV ID (systole) 3.6 cm (2D) 2.07 cm/m IVS, leaflet tips 1.1 cm (2D) Posterior wall thickness 1.1 cm (2D) Left ventricular mass 214 g (2D) 123 g/m Ejection Fraction 52 % (visual est.) EF > 54 FINDINGS: LEFT VENTRICLE The left ventricle is normal in size. Left ventricular systolic function is normal. Grade I left ventricular diastolic dysfunction. Mitral annular septal E/e': 17.4. Wall Motion: The basal inferior segment and basal inferoseptal segment are severely hypokinetic. All remaining scored segments are normal. RIGHT VENTRICLE The right ventricle is normal in size. Right ventricular systolic function is normal. Tricuspid annular displacement is 2.3 cm. Estimated right ventricular systolic pressure is not reported due to an insufficient tricuspid regurgitation signal. Estimated right atrial pressure is 8 mmHg based on IVC assessment. LEFT ATRIUM The left atrial cavity is mildly dilated. RIGHT ATRIUM The right atrial cavity is normal in size. Inferior Vena Cava: The inferior vena cava appears normal measuring 1.6 cm. The vessel decreases less than 50 percent with inspiration. MITRAL VALVE There is mild mitral annular calcification observed posterior. There is trace mitral valve regurgitation. There is no thickening. The pressure half time is 63 msec. The peak mitral E/A ratio is 0.75. The average mitral E/e' ratio is 17.4. The mitral flow deceleration time is 217 msec. TRICUSPID VALVE The tricuspid valve leaflets are structurally normal. There is trace tricuspid valve regurgitation. AORTIC VALVE There is trace aortic valve regurgitation. Tricuspid aortic valve. There is mild thickening. The peak gradient is 15 mmHg (peak velocity = 192.0 cm/s). PULMONIC VALVE The pulmonic valve cusps are structurally normal. There is trace pulmonic valve regurgitation. The peak gradient is 7 mmHg. AORTA The visualized aorta is normal in size. Measurements - Mid ascending aorta 3.4 cm. INTERVENTRICULAR SEPTUM There is abnormal motion of the interventricular septum secondary to abnormal conduction. PERICARDIUM There is no pericardial effusion. CONCLUSIONS: - Technically difficult exam due to post op, bandages/chest tubes/wound, suboptimal positioning, body habitus and COPD. - Exam indication: Hypotension - The abnormal regional wall motion pattern in conjunction with normal regional wall thickness is consistent with a LBBB abnormal conduction delay. - The left ventricle is normal in size. Left ventricular systolic function is normal. EF = 52 5% (visual est.) Grade I left ventricular diastolic dysfunction. - The right ventricle is normal in size. Right ventricular systolic function is normal. - The left atrial cavity is mildly dilated. - IVC size small 1.6 cm. - Technically difficult study with poor visualization of LV endocardial borders - Grossly normal LV function with abnormal septal motion due to LBBB - the basal inferior/inferoseptal segments appears hypokinetic (prior RCA PCI) - The patient has not had a prior CC echocardiographic exam for comparison. * * * Final * * * CC [employer] [facility] Image : [id number] ISUID Normal [facility] HIGH SENSITIVITY TROPONIN To n 04-09-2024 Troponin T.cardiac High sensitivity method [Mass/Vol] 24 ng/L High <12 [facility] Comment on above: Order Comment: Speci men Type: BLOOD SPECIMENOrdering Facility: [facility] Address: [address] [place] [address] Performed By: #### 2 4323-8, HSTNT ####[facility]CLIA [id number] [place] [address] [place] XR CHEST 1V FRONTAL PORTon 0 04-09-2024 XR CHEST 1V FRONTAL PORT * * *Final Report* * * DATE OF EXAM: Apr 09 2024 9:08AM ESTELLA 5376 - XR CHEST 1V FRONTAL PORT / PROCEDURE REASON: Shortness of breath * * * * Physician Interpretation * * * * EXAMINATION: CHEST RADIOGRAPH (PORTABLE SINGLE VIEW AP) Exam Date/Time: 04/09/2024 9:08 AM Clinical History: Shortness of breath MQ: [id number] Comparison: 1 day prior RESULT: Lines, tubes, and devices: None. Lungs and pleura: Bibasilar opacities may represent atelectasis or pneumonia/aspiration. Blunting of the costophrenic angles likely represents small pleural effusions. There is no pneumothorax. Cardiomediastinal silhouette: The cardiomediastinal silhouette is mildly enlarged. The aortic arch is atherosclerotic. IMPRESSION: See result. Internet Database Specialist: ROBERT Transcribe Date/Time: Apr 09 2024 9:17A Dictated by : SARAH STEVENS MD This examination was interpreted and the report reviewed and electronically signed by: SARAH STEVENS MD on Apr 09 2024 9:18AM EST [id number] Normal [facility] Basic metabolic 2000 panelon 04-08-2024 Anion gap [Moles/Vol] 15 mmol/L Normal 8-15 [facility] Comment on above: Order Comment: Speci men Type: BLOOD SPECIMEN [facility] Address: [address] [place] [address] Performed By: #### 1 9123-9, HSTNT, 2777-1, 56889-3, 00584-7 #### [facility] CLIA [id number] [address] [place] [place] [address] [place] Calcium [Mass/Vol] 8.3 mg/dL Low 8.5-10.2 [facility] Comment on above: Order Comment: Speci men Type: BLOOD SPECIMEN [facility] Address: [address] [place] [address] Performed By: #### 1 9123-9, HSTNT, 2777-1, 16558-1, 24383-9 #### [facility] CLIA [id number] [address] [place] [address] [place] Chloride [Moles/Vol] 100 mmol/L Normal 98-107 [facility] Comment on above: Order Comment: Speci men Type: BLOOD SPECIMEN [facility] Address: [address] [place] [address] Performed By: #### 1 9123-9, HSTNT, 2777-1, 04135-9, 78317-1 #### [facility] CLIA [id number] [address] [place], [place] [id number] [place] CO2 [Moles/Vol] 18 mmol/L Low 22-30 [facility] Comment on above: Order Comment: Speci men Type: BLOOD SPECIMEN [facility] Address: [address] [place] [address] Performed By: #### 1 9123-9, HSTNT, 2777-1, 73651-0, 56866-4 #### [facility] CLIA [id number] [address] [place] [place] [address] [place] Creatinine [Mass/Vol] 0.82 mg/dL Normal 0.58-0.96 [facility] Comment on above: Order Comment: Speci men Type: BLOOD SPECIMEN [facility] Address: [address] [place] [address] Performed By: #### 1 9123-9, HSTNT, 2777-1, 45991-0, 06152-6 #### [facility] CLIA [id number] [address] [place] [address] [place] Creatinine and Glomerular filtration rate.predicted panel (S/P/Bld) 78 mL/min/1.73m??? Normal >=60 [facility] Comment on above: Order Comment: Santhoshi kaveh Type: BLOOD SPECIMEN [facility] Address: [address] [place] [address] Result Comment: Kayli mated Glomerular Filtration Rate (eGFR) is calculated using the 2020 CKD-EPI creatinine equation. This equation utilizes serum creatinine, sex, and age as parameters. The creatinine assay has traceable calibration to isotope dilution-mass spectrometry. Refer to KDIGO guidelines for clinical interpretation. In patients with unstable renal function, e.g. those with acute kidney injury, the eGFR may not accurately reflect actual GFR. Performed By: #### 1 9123-9, HSTNT, 2777-1, 76587-1, 49738-0 #### [facility] CLIA [id number] [address] [place] [address] [place] Glucose [Mass/Vol] 104 mg/dL High 74-99 [facility] Comment on above: Order Comment: Specesthela linn Type: BLOOD SPECIMEN [facility] Address: [address] [place] [address] Result Comment: The [place] [employer] (ADA) provides guidance for cutoff values for fasting glucose and random glucose. The ADA defines fasting as no caloric intake for at least 8 hours. Fasting plasma glucose results between 100 to 125 mg/dL indicate increased risk for diabetes (prediabetes). Fasting plasma glucose results greater than or equal to 126 mg/dL meet the criteria for diagnosis of diabetes. In the absence of unequivocal hyperglycemia, results should be confirmed by repeat testing. In a patient with classic symptoms of hyperglycemia or hyperglycemic crisis, random plasma glucose results greater than or equal to 200 mg/dL meet the criteria for diagnosis of diabetes. Reference: Standards of Medical Care in Diabetes 2016, [place] [employer]. Diabetes Care. 2016.39(Suppl 1). Performed By: #### 1 9123-9, HSTNT, 2777-1, 37408-8, 71847-2 #### [facility] CLIA [id number] [address] [place] [address] [place] Potassium [Moles/Vol] 4.2 mmol/L Normal 3.7-5.1 [facility] Comment on above: Order Comment: Peter linn Type: BLOOD SPECIMEN [facility] Address: [address] [place] [address] Performed By: #### 1 9123-9, HSTNT, 2777-1, 44725-4, 95868-1 #### [facility] CLIA [id number] [address] [place] [address] [place] Sodium [Moles/Vol] 133 mmol/L Low 136-144 [facility] Comment on above: Order Comment: Peter linn Type: BLOOD SPECIMEN [facility] Address: [address] [place] [address] Performed By: #### 1 9123-9, HSTNT, 2777-, 42508-0, 31845-2 #### [facility] CLIA [id number] [address] [place] [address] [place] Urea nitrogen [Mass/Vol] 12 mg/dL Normal 7-21 [facility] Comment on above: Order Comment: Speci men Type: BLOOD SPECIMEN [facility] Address: [address] [place] [address] Performed By: #### 1 9123-9, HSTNT, 2777-1, 18154-7, 27250-0 #### [facility] CLIA [id number] [address] [place] [address] [place] Anion gap [Moles/Vol] 11 mmol/L Normal 8-15 [facility] Comment on above: Order Comment: Speci men Type: ARTERIAL BLOOD SPECIMEN [facility] Address: [address] [place] [address] Performed By: #### A LLBG #### [facility] CLIA [id number] [address] [place] [address] [place] Calcium [Mass/Vol] 8.2 mg/dL Low 8.5-10.2 [facility] Comment on above: Order Comment: Speci men Type: ARTERIAL BLOOD SPECIMEN [facility] Address: [address] [place] [address] Performed By: #### A LLBG #### [facility] CLIA [id number] [address] [place] [address] [place] Chloride [Moles/Vol] 102 mmol/L Normal 98-107 [facility] Comment on above: Order Comment: Speci men Type: ARTERIAL BLOOD SPECIMEN [facility] Address: [address] [place] [address] Performed By: #### A LLBG #### [facility] CLIA [id number] [address] [place] [address] [place] CO2 [Moles/Vol] 22 mmol/L Normal 22-30 [facility] Comment on above: Order Comment: Speci men Type: ARTERIAL BLOOD SPECIMEN [facility] Address: [address] [place] [address] Performed By: #### A LLBG #### [facility] CLIA [id number] [address] [place] [address] [place] Creatinine [Mass/Vol] 0.79 mg/dL Normal 0.58-0.96 [facility] Comment on above: Order Comment: Speci men Type: ARTERIAL BLOOD SPECIMEN [facility] Address: [address] [place] [address] Performed By: #### A LLBG #### [facility] CLIA [id number] [address] [place] [address] [place] Creatinine and Glomerular filtration rate.predicted panel (S/P/Bld) 81 mL/min/1.73m??? Normal >=60 [facility] Comment on above: Order Comment: Speci men Type: ARTERIAL BLOOD SPECIMEN [facility] Address: [address] [place] [address] Result Comment: Kayli mated Glomerular Filtration Rate (eGFR) is calculated using the 2020 CKD-EPI creatinine equation. This equation utilizes serum creatinine, sex, and age as parameters. The creatinine assay has traceable calibration to isotope dilution-mass spectrometry. Refer to KDIGO guidelines for clinical interpretation. In patients with unstable renal function, e.g. those with acute kidney injury, the eGFR may not accurately reflect actual GFR. Performed By: #### A LLBG #### [facility] CLIA [id number] [address] [place] [address] [place] Glucose [Mass/Vol] 127 mg/dL High 74-99 [facility] Comment on above: Order Comment: Speci men Type: ARTERIAL BLOOD SPECIMEN [facility] Address: [address] [place] [address] Result Comment: The [place] [employer] (ADA) provides guidance for cutoff values for fasting glucose and random glucose. The ADA defines fasting as no caloric intake for at least 8 hours. Fasting plasma glucose results between 100 to 125 mg/dL indicate increased risk for diabetes (prediabetes). Fasting plasma glucose results greater than or equal to 126 mg/dL meet the criteria for diagnosis of diabetes. In the absence of unequivocal hyperglycemia, results should be confirmed by repeat testing. In a patient with classic symptoms of hyperglycemia or hyperglycemic crisis, random plasma glucose results greater than or equal to 200 mg/dL meet the criteria for diagnosis of diabetes. Reference: Standards of Medical Care in Diabetes 2016, [place] [employer]. Diabetes Care. 2016.39(Suppl 1). Performed By: #### A LLBG #### [facility] CLIA [id number] [address] [place] [address] [place] Potassium [Moles/Vol] 4.3 mmol/L Normal 3.7-5.1 [facility] Comment on above: Order Comment: Speci men Type: ARTERIAL BLOOD SPECIMEN [facility] Address: [address] [place] [address] Performed By: #### A LLBG #### [facility] CLIA [id number] [address] [place] [address] [place] Sodium [Moles/Vol] 135 mmol/L Low 136-144 [facility] Comment on above: Order Comment: Speci men Type: ARTERIAL BLOOD SPECIMEN [facility] Address: [address] [place] [address] Performed By: #### A LLBG #### [facility] CLIA [id number] [address] [place] [address] [place] Urea nitrogen [Mass/Vol] 12 mg/dL Normal 7-21 [facility] Comment on above: Order Comment: Speci men Type: ARTERIAL BLOOD SPECIMEN [facility] Address: [address] [place] [address] Performed By: #### A LLBG #### [facility] CLIA [id number] [address] [place] [address] [place] CBC W Auto Differential pane l (Bld)on 04-08-2024 Basophils (Bld) [#/Vol] 0.05 10*3/uL Normal <0.11 [facility] Comment on above: Order Comment: Speci men Type: BLOOD SPECIMENOrdering Facility: [facility] Address: [address] [place] [address] Performed By: #### 5 7021-8 ####[facility]CLIA [id number] [place] [address] [place] Basophils/100 WBC (Bld) 0.5 % Normal [facility] Comment on above: Order Comment: Speci men Type: BLOOD SPECIMENOrdering Facility: [facility] Address: [address] [place] [address] Performed By: #### 5 7021-8 ####[facility]CLIA [id number] [place] [address] [place] Differential cell count method Nom (Bld) Auto Normal [facility] Comment on above: Order Comment: Speci men Type: BLOOD SPECIMENOrdering Facility: [facility] Address: [address] [place] [address] Performed By: #### 5 7021-8 ####[facility]CLIA [id number] [place] [address] [place] Eosinophils (Bld) [#/Vol] 0.23 10*3/uL Normal <0.46 [facility] Comment on above: Order Comment: Speci men Type: BLOOD SPECIMENOrdering Facility: [facility] Address: [address] [place] [address] Performed By: #### 5 7021-8 ####[facility]CLIA [id number] [place] [address] [place] Eosinophils/100 WBC (Bld) 2.1 % Normal [facility] Comment on above: Order Comment: Speci men Type: BLOOD SPECIMENOrdering Facility: [facility] Address: [address] [place] [address] Performed By: #### 5 7021-8 ####[facility]CLIA [id number] [place] [address] [place] Erythrocyte distribution width (RBC) [Ratio] 21.8 % High 11.5-15.0 [facility] Comment on above: Order Comment: Speci men Type: BLOOD SPECIMENOrdering Facility: [facility] Address: [address] [place] [address] Performed By: #### 5 7021-8 ####[facility]IA [id number] [place] [address] [place] Hematocrit (Bld) [Volume fraction] 25.3 % Low 36.0-46.0 [facility] Comment on above: Order Comment: Speci men Type: BLOOD SPECIMENOrdering Facility: [facility] Address: [address] [place] [address] Performed By: #### 5 7021-8 ####[facility] [id number] [place] [address] [place] Hemoglobin (Bld) [Mass/Vol] 8.2 g/dL Low 11.5-15.5 [facility] Comment on above: Order Comment: Speci men Type: BLOOD SPECIMENOrdering Facility: [facility] Address: [address] [place] [address] Performed By: #### 5 7021-8 ####[facility]IA [id number] [place] [address] [place] Immature granulocytes (Bld) [#/Vol] 0.07 10*3/uL Normal <0.10 [facility] Comment on above: Order Comment: Speci men Type: BLOOD SPECIMENOrdering Facility: [facility] Address: [address] [place] [address] Performed By: #### 5 7021-8 ####[facility]IA [id number] [place] [address] [place] Immature granulocytes/100 WBC (Bld) 0.7 % Normal [facility] Comment on above: Order Comment: Speci men Type: BLOOD SPECIMENOrdering Facility: [facility] Address: [address] [place] [address] Performed By: #### 5 7021-8 ####[facility] [id number] [place] [address] [place] Lymphocytes (Bld) [#/Vol] 2.61 10*3/uL Normal 1.00-4.00 [facility] Comment on above: Order Comment: Speci men Type: BLOOD SPECIMENOrdering Facility: [facility] Address: [address] [place] [address] Performed By: #### 5 7021-8 ####[facility] [id number] [place] [address] [place] Lymphocytes/100 WBC (Bld) 24.4 % Normal [facility] Comment on above: Order Comment: Speci men Type: BLOOD SPECIMENOrdering Facility: [facility] Address: [address] [place] [address] Performed By: #### 5 7021-8 ####[facility] [id number] [place] [address] [place] MCH (RBC) [Entitic mass] 25.8 pg Low 26.0-34.0 [facility] Comment on above: Order Comment: Speci men Type: BLOOD SPECIMENOrdering Facility: [facility] Address: [address] [place] [address] Performed By: #### 5 7021-8 ####[facility] [id number] [place] [address] [place] MCHC (RBC) [Mass/Vol] 32.4 g/dL Normal 30.5-36.0 [facility] Comment on above: Order Comment: Speci men Type: BLOOD SPECIMENOrdering Facility: [facility] Address: [address] [place] [address] Performed By: #### 5 7021-8 ####[facility] [id number] [place] [address] [place] MCV (RBC) [Entitic vol] 79.6 fL Low 80.0-100.0 [facility] Comment on above: Order Comment: Speci men Type: BLOOD SPECIMENOrdering Facility: [facility] Address: [address] [place] [address] Performed By: #### 5 7021-8 ####[facility] [id number] [place] [address] [place] Monocytes (Bld) [#/Vol] 1.26 10*3/uL High <0.87 [facility] Comment on above: Order Comment: Speci men Type: BLOOD SPECIMENOrdering Facility: [facility] Address: [address] [place] [address] Performed By: #### 5 7021-8 ####[facility] [id number] [place] [address] [place] Monocytes/100 WBC (Bld) 11.8 % Normal [facility] Comment on above: Order Comment: Speci men Type: BLOOD SPECIMENOrdering Facility: [facility] Address: [address] [place] [address] Performed By: #### 5 7021-8 ####[facility] [id number] [place] [address] [place] Neutrophils (Bld) [#/Vol] 6.48 10*3/uL Normal 1.45-7.50 [facility] Comment on above: Order Comment: Speci men Type: BLOOD SPECIMENOrdering Facility: [facility] Address: [address] [place] [address] Performed By: #### 5 7021-8 ####[facility] [id number] [place] [address] [place] Neutrophils/100 WBC (Bld) 60.5 % Normal [facility] Comment on above: Order Comment: Speci men Type: BLOOD SPECIMENOrdering Facility: [facility] Address: [address] [place] [address] Performed By: #### 5 7021-8 ####[facility] [id number] [place] [address] [place] Nucleated RBC (Bld) [#/Vol] 10*3/uL Normal <0.01 [facility] Comment on above: Order Comment: Speci men Type: BLOOD SPECIMENOrdering Facility: [facility] Address: [address] [place] [address] Performed By: #### 5 7021-8 ####[facility] [id number] [place] [address] [place] Nucleated RBC/100 WBC (Bld) [Ratio] 0.0 /100 WBC Normal [facility] Comment on above: Order Comment: Speci men Type: BLOOD SPECIMENOrdering Facility: [facility] Address: [address] [place] [address] Performed By: #### 5 7021-8 ####[facility] [id number] [place] [address] [place] Platelet mean volume (Bld) [Entitic vol] 9.6 fL Normal 9.0-12.7 [facility] Comment on above: Order Comment: Speci men Type: BLOOD SPECIMENOrdering Facility: [facility] Address: [address] [place] [address] Performed By: #### 5 7021-8 ####[facility] [id number] [place] [address] [place] Platelets (Bld) [#/Vol] 218 10*3/uL Normal 150-400 [facility] Comment on above: Order Comment: Speci men Type: BLOOD SPECIMENOrdering Facility: [facility] Address: [address] [place] [address] Result Comment: No c lot detected. Performed By: #### 5 7021-8 ####[facility] [id number] [place] [address] [place] RBC (Bld) [#/Vol] 3.18 10*6/uL Low 3.90-5.20 [facility] Comment on above: Order Comment: Speci men Type: BLOOD SPECIMENOrdering Facility: [facility] Address: [address] [place] [address] Performed By: #### 5 7021-8 ####[facility] [id number] [place] [address] [place] WBC (Bld) [#/Vol] 10.70 10*3/uL Normal 3.70-11.00 [facility] Comment on above: Order Comment: Speci men Type: BLOOD SPECIMENOrdering Facility: [facility] Address: [address] [place] [address] Performed By: #### 5 7021-8 ####[facility] [id number] [place] [address] [place] CBC panel Auto (Bld)on 04-08 Erythrocyte distribution width (RBC) [Ratio] 21.8 % High 11.5-15.0 [facility] Comment on above: Order Comment: Speci men Type: BLOOD SPECIMEN [facility]ing Facility: [facility] Address: [address] [place] [address] Performed By: #### 5 8410-2 #### [facility] CLIA [id number] [address] [place] [place] [address] [place] Hematocrit (Bld) [Volume fraction] 26.1 % Low 36.0-46.0 [facility] Comment on above: Order Comment: Speci men Type: BLOOD SPECIMEN [facility] Address: [address] [place] [address] Performed By: #### 5 8410-2 #### [facility] CLIA [id number] [address] [place] [place] [address] [place] Hemoglobin (Bld) [Mass/Vol] 8.4 g/dL Low 11.5-15.5 [facility] Comment on above: Order Comment: Speci men Type: BLOOD SPECIMEN [facility]ing [facility] Address: [address] [place] [address] Performed By: #### 5 8410-2 #### [facility] CLIA [id number] [address] [place] [place] [address] [place] MCH (RBC) [Entitic mass] 25.8 pg Low 26.0-34.0 [facility] Comment on above: Order Comment: Speci men Type: BLOOD SPECIMEN [facility]ing [facility]: [facility] Address: [address] [place] [address] Performed By: #### 5 8410-2 #### [facility] CLIA [id number] [address] [place] [place] [address] [place] MCHC (RBC) [Mass/Vol] 32.2 g/dL Normal 30.5-36.0 [facility] Comment on above: Order Comment: Speci men Type: BLOOD SPECIMEN [facility]ing [facility]: [facility] Address: [address] [place] [address] Performed By: #### 5 8410-2 #### [facility] CLIA [id number] [address] [place] [place] [address] [place] MCV (RBC) [Entitic vol] 80.1 fL Normal 80.0-100.0 [facility] Comment on above: Order Comment: Speci men Type: BLOOD SPECIMEN [facility]ing [facility] Address: [address] [place] [address] Performed By: #### 5 8410-2 #### [facility] CLIA [id number] [address] [place] [place] [address] [place] Nucleated RBC (Bld) [#/Vol] 10*3/uL Normal <0.01 [facility] Comment on above: Order Comment: Speci men Type: BLOOD SPECIMEN [facility]ing [facility] Address: [address] [place] [address] Performed By: #### 5 8410-2 #### [facility] CLIA [id number] [address] [place] [address] [place] Platelet mean volume (Bld) [Entitic vol] 9.5 fL Normal 9.0-12.7 [facility] Comment on above: Order Comment: Speci men Type: BLOOD SPECIMEN [facility]ing [facility] Address: [address] [place] [address] Performed By: #### 5 8410-2 #### [facility] CLIA [id number] [address] [place] [address] [place] Platelets (Bld) [#/Vol] 241 10*3/uL Normal 150-400 [facility] Comment on above: Order Comment: Speci men Type: BLOOD SPECIMEN [facility] Address: [address] [place] [address] Performed By: #### 5 8410-2 #### [facility] CLIA [id number] [address] [place] [address] [place] RBC (Bld) [#/Vol] 3.26 10*6/uL Low 3.90-5.20 [facility] Comment on above: Order Comment: Speci men Type: BLOOD SPECIMEN [facility] Address: [address] [place] [address] Performed By: #### 5 8410-2 #### [facility] CLIA [id number] [address] [place] [address] [place] WBC (Bld) [#/Vol] 10.77 10*3/uL Normal 3.70-11.00 [facility] Comment on above: Order Comment: Speci men Type: BLOOD SPECIMEN [facility]ing [facility] Address: [address] [place] [address] Performed By: #### 5 8410-2 #### [facility] CLIA [id number] [address] [place] [address] [place] Erythrocyte distribution width (RBC) [Ratio] 21.9 % High 11.5-15.0 [facility] Comment on above: Order Comment: Speci men Type: ARTERIAL BLOOD SPECIMEN [facility]ing [facility] Address: [address] [place] [address] Performed By: #### A LLBG #### [facility] CLIA [id number] [address] [place] [address] [place] Hematocrit (Bld) [Volume fraction] 25.3 % Low 36.0-46.0 [facility] Comment on above: Order Comment: Speci men Type: ARTERIAL BLOOD SPECIMEN [facility]ing [facility] Address: [address] [place] [address] Performed By: #### A LLBG #### [facility] CLIA [id number] [address] [place] [address] [place] Hemoglobin (Bld) [Mass/Vol] 8.1 g/dL Low 11.5-15.5 [facility] Comment on above: Order Comment: Speci men Type: ARTERIAL BLOOD SPECIMEN [facility] Address: [address] [place] [address] Performed By: #### A LLBG #### [facility] CLIA [id number] [address] [place] [address] [place] MCH (RBC) [Entitic mass] 25.8 pg Low 26.0-34.0 [facility] Comment on above: Order Comment: Speci men Type: ARTERIAL BLOOD SPECIMEN [facility]ing [facility] Address: [address] [place] [address] Performed By: #### A LLBG #### [facility] CLIA [id number] [address] [place] [place] [address] [place] MCHC (RBC) [Mass/Vol] 32.0 g/dL Normal 30.5-36.0 [facility] Comment on above: Order Comment: Speci men Type: ARTERIAL BLOOD SPECIMEN [facility] Address: [address] [place] [address] Performed By: #### A LLBG #### [facility] CLIA [id number] [address] [place] [address] [place] MCV (RBC) [Entitic vol] 80.6 fL Normal 80.0-100.0 [facility] Comment on above: Order Comment: Speci men Type: ARTERIAL BLOOD SPECIMEN [facility] Address: [address] [place] [address] Performed By: #### A LLBG #### [facility] CLIA [id number] [address] [place] [address] [place] Nucleated RBC (Bld) [#/Vol] 10*3/uL Normal <0.01 [facility] Comment on above: Order Comment: Speci men Type: ARTERIAL BLOOD SPECIMEN [facility] Address: [address] [place] [address] Performed By: #### A LLBG #### [facility] CLIA [id number] [address] [place] [address] [place] Platelet mean volume (Bld) [Entitic vol] 9.6 fL Normal 9.0-12.7 [facility] Comment on above: Order Comment: Speci men Type: ARTERIAL BLOOD SPECIMEN [facility] Address: [address] [place] [address] Performed By: #### A LLBG #### [facility] CLIA [id number] [address] [place], [place] [id number] [place] Platelets (Bld) [#/Vol] 244 10*3/uL Normal 150-400 [facility] Comment on above: Order Comment: Speci men Type: ARTERIAL BLOOD SPECIMEN [facility]ing [facility]: [facility] Address: [address] [place] [address] Performed By: #### A LLBG #### [facility] CLIA [id number] [address] [place] [address] [place] RBC (Bld) [#/Vol] 3.14 10*6/uL Low 3.90-5.20 [facility] Comment on above: Order Comment: Speci men Type: ARTERIAL BLOOD SPECIMEN [facility]ing [facility] Address: [address] [place] [address] Performed By: #### A LLBG #### [facility] CLIA [id number] [address] [place] [place] [address] [place] WBC (Bld) [#/Vol] 10.63 10*3/uL Normal 3.70-11.00 [facility] Comment on above: Order Comment: Speci men Type: ARTERIAL BLOOD SPECIMEN [facility]ing [facility] Address: [address] [place] [address] Performed By: #### A LLBG #### [facility] CLIA [id number] [address] [place] [address] [place] Erythrocyte distribution width (RBC) [Ratio] 22.5 % High 11.5-15.0 [facility] Comment on above: Order Comment: Speci men Type: BLOOD SPECIMEN [facility] Address: [address] [place] [address] Performed By: #### 1 9123-9, HSTNT, 2777-1, 07232-1, 09782-3 #### [facility] CLIA [id number] [address] [place] [address] [place] Hematocrit (Bld) [Volume fraction] 29.7 % Low 36.0-46.0 [facility] Comment on above: Order Comment: Speci men Type: BLOOD SPECIMEN [facility] Address: [address] [place] [address] Performed By: #### 1 9123-9, HSTNT, 2777-1, 76943-5, 51963-4 #### [facility] CLIA [id number] [address] [place] [address] [place] Hemoglobin (Bld) [Mass/Vol] 9.3 g/dL Low 11.5-15.5 [facility] Comment on above: Order Comment: Speci men Type: BLOOD SPECIMEN [facility] Address: [address] [place] [address] Performed By: #### 1 9123-9, HSTNT, 2777-1, 53371-8, 06402-4 #### [facility] CLIA [id number] [address] [place] [address] [place] MCH (RBC) [Entitic mass] 25.1 pg Low 26.0-34.0 [facility] Comment on above: Order Comment: Speci men Type: BLOOD SPECIMEN [facility] Address: [address] [place] [address] Performed By: #### 1 9123-9, HSTNT, 2777-1, 55778-8, 13120-0 #### [facility] CLIA [id number] [address] [place] [address] [place] MCHC (RBC) [Mass/Vol] 31.3 g/dL Normal 30.5-36.0 [facility] Comment on above: Order Comment: Speci men Type: BLOOD SPECIMEN [facility] Address: [address] [place] [address] Performed By: #### 1 9123-9, HSTNT, 2777-1, 61114-6, 15747-5 #### [facility] CLIA [id number] [address] [place] [place] [address] [place] MCV (RBC) [Entitic vol] 80.1 fL Normal 80.0-100.0 [facility] Comment on above: Order Comment: Speci men Type: BLOOD SPECIMEN [facility] Address: [address] [place] [address] Performed By: #### 1 9123-9, HSTNT, 277-, 45822-2, 18260-9 #### [facility] CLIA [id number] [address] [place] [address] [place] Nucleated RBC (Bld) [#/Vol] 10*3/uL Normal <0.01 [facility] Comment on above: Order Comment: Speci men Type: BLOOD SPECIMEN [facility] Address: [address] [place] [address] Performed By: #### 1 9123-9, HSTNT, 2777-, 18143-4, 39959-6 #### [facility] CLIA [id number] [address] [place] [address] [place] Platelet mean volume (Bld) [Entitic vol] 9.5 fL Normal 9.0-12.7 [facility] Comment on above: Order Comment: Speci men Type: BLOOD SPECIMEN [facility] Address: [address] [place] [address] Performed By: #### 1 9123-9, HSTNT, 277-, 10502-4, 18144-9 #### [facility] CLIA [id number] [address] [place] [address] [place] Platelets (Bld) [#/Vol] 323 10*3/uL Normal 150-400 [facility] Comment on above: Order Comment: Speci men Type: BLOOD SPECIMEN [facility] Address: [address] [place] [address] Performed By: #### 1 9123-9, HSTNT, 2777-1, 22765-1, 97718-1 #### [facility] CLIA [id number] [address] [place] [place] [address] [place] RBC (Bld) [#/Vol] 3.71 10*6/uL Low 3.90-5.20 [facility] Comment on above: Order Comment: Speci men Type: BLOOD SPECIMEN [facility]ing [facility]: [facility] Address: [address] [place] [address] Performed By: #### 1 9123-9, HSTNT, 2777-1, 43857-9, 63353-9 #### [facility] CLIA [id number] [address] [place] [place] [address] [place] WBC (Bld) [#/Vol] 12.33 10*3/uL High 3.70-11.00 [facility] Comment on above: Order Comment: Speci men Type: BLOOD SPECIMEN [facility]ing [facility]: [facility] Address: [address] [place] [address] Performed By: #### 1 9123-9, HSTNT, 2777-1, 59917-4, 71991-7 #### [facility] CLIA [id number] [address] [place] [address] [place] Comprehensive metabolic 2000 panelon 04-08-2024 Albumin [Mass/Vol] 3.4 g/dL Low 3.9-4.9 [facility] Comment on above: Order Comment: Speci men Type: BLOOD SPECIMEN [facility] Address: [address] [place] [address] Performed By: #### 1 9123-9, HSTNT, 2777-1, 59010-3, 18361-1 #### [facility] CLIA [id number] [address] [place] [address] [place] ALP [Catalytic activity/Vol] 68 U/L Normal 34-123 [facility] Comment on above: Order Comment: Speci men Type: BLOOD SPECIMEN [facility]ing [facility]: [facility] Address: [address] [place] [address] Performed By: #### 1 9123-9, HSTNT, 2777-1, 69905-9, 09149-5 #### [facility] CLIA [id number] [address] [place] [address] [place] ALT [Catalytic activity/Vol] 105 U/L High 7-38 [facility] Comment on above: Order Comment: Speci men Type: BLOOD SPECIMEN [facility]ing [facility]: [facility] Address: [address] [place] [address] Result Comment: Resu lts may be falsely increased due to interference from hemolysis. Suggest reorder as clinically indicated. Performed By: #### 1 9123-9, HSTNT, 2777-1, 11067-3, 06473-4 #### [facility] CLIA [id number] [address] [place] [address] [place] Anion gap [Moles/Vol] 10 mmol/L Normal 8-15 [facility] Comment on above: Order Comment: Speci men Type: BLOOD SPECIMEN [facility]ing [facility]: [facility] Address: [address] [place] [address] Performed By: #### 1 9123-9, HSTNT, 2777-1, 33501-7, 66926-5 #### [facility] CLIA [id number] [address] [place] [address] [place] AST [Catalytic activity/Vol] 97 U/L High 13-35 [facility] Comment on above: Order Comment: Speci men Type: BLOOD SPECIMEN [facility]ing [facility]: [facility] Address: [address] [place] [address] Result Comment: Resu lts may be falsely increased due to interference from hemolysis. Suggest reorder as clinically indicated. Performed By: #### 1 9123-9, HSTNT, 2777-1, 86378-3, 97448-2 #### [facility] CLIA [id number] [address] [place] [address] [place] Bilirubin [Mass/Vol] 0.5 mg/dL Normal 0.2-1.3 [facility] Comment on above: Order Comment: Speci men Type: BLOOD SPECIMEN [facility]ing [facility]: [facility] Address: [address] [place] [address] Performed By: #### 1 9123-9, HSTNT, 2777-1, 42712-0, 86311-7 #### [facility] CLIA [id number] [address] [place] [address] [place] Calcium [Mass/Vol] 8.0 mg/dL Low 8.5-10.2 [facility] Comment on above: Order Comment: Speci men Type: BLOOD SPECIMEN Ordering Facility: [facility] Address: [address] [place] [address] Performed By: #### 1 9123-9, HSTNT, 2777-1, 69228-3, 46162-7 #### [facility] CLIA [id number] [address] [place] [address] [place] Chloride [Moles/Vol] 103 mmol/L Normal 98-107 [facility] Comment on above: Order Comment: Speci men Type: BLOOD SPECIMEN Ordering Facility: [facility] Address: [address] [place] [address] Performed By: #### 1 9123-9, HSTNT, 2777-1, 43551-5, 02960-1 #### [facility] CLIA [id number] [address] [place], [place] [address] [place] CO2 [Moles/Vol] 23 mmol/L Normal 22-30 [facility] Comment on above: Order Comment: Speci men Type: BLOOD SPECIMEN Ordering Facility: [facility] Address: [address] [place] [address] Performed By: #### 1 9123-9, HSTNT, 2777-1, 67684-5, 49056-5 #### [facility] CLIA [id number] [address] [place] [place] [address] [place] Creatinine [Mass/Vol] 0.78 mg/dL Normal 0.58-0.96 [facility] Comment on above: Order Comment: Peter linn Type: BLOOD SPECIMEN Ordering Facility: [facility] Address: [address] [place] [address] Performed By: #### 1 9123-9, HSTNT, 2777-1, 62751-9, 58620-2 #### [facility] CLIA [id number] [address] [place] [address] [place] Creatinine and Glomerular filtration rate.predicted panel (S/P/Bld) 82 mL/min/1.73m??? Normal >=60 [facility] Comment on above: Order Comment: Peter linn Type: BLOOD SPECIMEN Ordering Facility: [facility] Address: [address] [place] [address] Result Comment: Kayli mated Glomerular Filtration Rate (eGFR) is calculated using the 2020 CKD-EPI creatinine equation. This equation utilizes serum creatinine, sex, and age as parameters. The creatinine assay has traceable calibration to isotope dilution-mass spectrometry. Refer to KDIGO guidelines for clinical interpretation. In patients with unstable renal function, e.g. those with acute kidney injury, the eGFR may not accurately reflect actual GFR. Performed By: #### 1 9123-9, HSTNT, 2777-, 13504-5, #### [facility] CLIA [id number] [address] [place] [address] [place] Glucose [Mass/Vol] 109 mg/dL High 74-99 [facility] Comment on above: Order Comment: Peter linn Type: BLOOD SPECIMEN Ordering Facility: [facility] Address: [address] [place] [address] Result Comment: The [place] [employer] (ADA) provides guidance for cutoff values for fasting glucose and random glucose. The ADA defines fasting as no caloric intake for at least 8 hours. Fasting plasma glucose results between 100 to 125 mg/dL indicate increased risk for diabetes (prediabetes). Fasting plasma glucose results greater than or equal to 126 mg/dL meet the criteria for diagnosis of diabetes. In the absence of unequivocal hyperglycemia, results should be confirmed by repeat testing. In a patient with classic symptoms of hyperglycemia or hyperglycemic crisis, random plasma glucose results greater than or equal to 200 mg/dL meet the criteria for diagnosis of diabetes. Reference: Standards of Medical Care in Diabetes 2016, [place] [employer]. Diabetes Care. 2016.39(Suppl 1). Performed By: #### 1 9123-9, HSTNT, 2777-1, 88793-7, 89275-9 #### [facility] CLIA [id number] [address] [place] [address] [place] Potassium [Moles/Vol] Normal [facility] Comment on above: Order Comment: Peter linn Type: BLOOD SPECIMEN Ordering Facility: [facility] Address: [address] [place] [address] Result Comment: Unab le to assay due to interference from hemolysis. Suggest reorder as clinically indicated. Performed By: #### 1 9123-9, HSTNT, 2777-1, 36687-9, 40752-4 #### [facility] CLIA [id number] [address] [place] [address] [place] Protein [Mass/Vol] 5.5 g/dL Low 6.3-8.0 [facility] Comment on above: Order Comment: Peter linn Type: BLOOD SPECIMEN Ordering Facility: [facility] Address: [address] [place] [address] Performed By: #### 1 9123-9, HSTNT, 2777-1, 13423-9, 76642-9 #### [facility] CLIA [id number] [address] [place] [address] [place] Sodium [Moles/Vol] 136 mmol/L Normal 136-144 [facility] Comment on above: Order Comment: Peter linn Type: BLOOD SPECIMEN Ordering Facility: [facility] Address: [address] [place] [address] Performed By: #### 1 9123-9, HSTNT, 2777-1, 10156-3, 12106-4 #### [facility] CLIA [id number] [address] [place] [address] [place] Urea nitrogen [Mass/Vol] 11 mg/dL Normal 7-21 [facility] Comment on above: Order Comment: Speci men Type: BLOOD SPECIMEN Ordering Facility: [facility] Address: [address] [place] [address] Performed By: #### 1 9123-9, HSTNT, 2777-1, 50292-6, 02463-8 #### [facility] CLIA [id number] [address] [place] [address] [place] Albumin [Mass/Vol] 4.2 g/dL Normal 3.9-4.9 [facility] Comment on above: Order Comment: Speci men Type: BLOOD SPECIMEN Ordering Facility: [facility] Address: [address] [place] [address] Performed By: #### 1 9123-9, HSTNT, 2777-1, 40076-8, 17819-9 #### [facility] CLIA [id number] [address] [place] [address] [place] ALP [Catalytic activity/Vol] 65 U/L Normal 34-123 [facility] Comment on above: Order Comment: Speci men Type: BLOOD SPECIMEN Ordering Facility: [facility] Address: [address] [place] [address] Performed By: #### 1 9123-9, HSTNT, 2777-1, 22424-1, 85156-1 #### [facility] CLIA [id number] [address] [place] [place] [address] [place] ALT [Catalytic activity/Vol] 104 U/L High 7-38 [facility] Comment on above: Order Comment: Speci men Type: BLOOD SPECIMEN Ordering Facility: [facility] Address: [address] [place] [address] Performed By: #### 1 9123-9, HSTNT, 2777-1, 91664-9, 21417-0 #### [facility] CLIA [id number] [address] [place] [address] [place] Anion gap [Moles/Vol] 13 mmol/L Normal 8-15 [facility] Comment on above: Order Comment: Speci men Type: BLOOD SPECIMEN Ordering Facility: [facility] Address: [address] [place] [address] Performed By: #### 1 9123-9, HSTNT, 2777-1, 94175-3, 10889-5 #### [facility] CLIA [id number] [address] [place] [place] [address] [place] AST [Catalytic activity/Vol] 98 U/L High 13-35 [facility] Comment on above: Order Comment: Speci men Type: BLOOD SPECIMEN Ordering Facility: [facility] Address: [address] [place] [address] Performed By: #### 1 9123-9, HSTNT, 2777-1, 36096-9, 65130-0 #### [facility] CLIA [id number] [address] [place] [place] [address] [place] Bilirubin [Mass/Vol] 0.4 mg/dL Normal 0.2-1.3 [facility] Comment on above: Order Comment: Speci men Type: BLOOD SPECIMEN Ordering Facility: [facility] Address: [address] [place] [address] Performed By: #### 1 9123-9, HSTNT, 2777-1, 49320-3, 88196-6 #### [facility] CLIA [id number] [address] [place] [place] [address] [place] Calcium [Mass/Vol] 7.7 mg/dL Low 8.5-10.2 [facility] Comment on above: Order Comment: Speci men Type: BLOOD SPECIMEN Ordering Facility: [facility] Address: [address] [place] [address] Performed By: #### 1 9123-9, HSTNT, 2777-1, 51255-6, 39174-2 #### [facility] CLIA [id number] [address] [place] [place] [address] [place] Chloride [Moles/Vol] 100 mmol/L Normal 98-107 [facility] Comment on above: Order Comment: Speci men Type: BLOOD SPECIMEN Ordering Facility: [facility] Address: [address] [place] [address] Performed By: #### 1 9123-9, HSTNT, 2777-1, 83461-7, 19828-4 #### [facility] CLIA [id number] [address] [place] [place] [address] [place] CO2 [Moles/Vol] 22 mmol/L Normal 22-30 [facility] Comment on above: Order Comment: Speci men Type: BLOOD SPECIMEN Ordering Facility: [facility] Address: [address] [place] [address] Performed By: #### 1 9123-9, HSTNT, 2776-1, 18943-6, 52389-6 #### [facility] CLIA [id number] [address] [place] [place] [address] [place] Creatinine [Mass/Vol] 0.80 mg/dL Normal 0.58-0.96 [facility] Comment on above: Order Comment: Speci men Type: BLOOD SPECIMEN Ordering Facility: [facility] Address: [address] [place] [address] Performed By: #### 1 9123-9, HSTNT, 2777-1, 49570-1, 39410-6 #### [facility] CLIA [id number] [address] [place] [place] [address] [place] Creatinine and Glomerular filtration rate.predicted panel (S/P/Bld) 80 mL/min/1.73m??? Normal >=60 [facility] Comment on above: Order Comment: Peter linn Type: BLOOD SPECIMEN Ordering Facility: [facility] Address: [address] [place] [address] Result Comment: Kayli mated Glomerular Filtration Rate (eGFR) is calculated using the 2020 CKD-EPI creatinine equation. This equation utilizes serum creatinine, sex, and age as parameters. The creatinine assay has traceable calibration to isotope dilution-mass spectrometry. Refer to KDIGO guidelines for clinical interpretation. In patients with unstable renal function, e.g. those with acute kidney injury, the eGFR may not accurately reflect actual GFR. Performed By: #### 1 9123-9, HSTNT, 2777-1, 80164-1, 76918-9 #### [facility] CLIA [id number] [address] [place] [address] [place] Glucose [Mass/Vol] 115 mg/dL High 74-99 [facility] Comment on above: Order Comment: Peter linn Type: BLOOD SPECIMEN Ordering Facility: [facility] Address: [address] [place] [address] Result Comment: The [place] [employer] (ADA) provides guidance for cutoff values for fasting glucose and random glucose. The ADA defines fasting as no caloric intake for at least 8 hours. Fasting plasma glucose results between 100 to 125 mg/dL indicate increased risk for diabetes (prediabetes). Fasting plasma glucose results greater than or equal to 126 mg/dL meet the criteria for diagnosis of diabetes. In the absence of unequivocal hyperglycemia, results should be confirmed by repeat testing. In a patient with classic symptoms of hyperglycemia or hyperglycemic crisis, random plasma glucose results greater than or equal to 200 mg/dL meet the criteria for diagnosis of diabetes. Reference: Standards of Medical Care in Diabetes 2016, [place] [employer]. Diabetes Care. 2016.39(Suppl 1). Performed By: #### 1 9123-9, HSTNT, 2777-1, 81864-3, 46192-4 #### [facility] CLIA [id number] [address] [place] [address] [place] Potassium [Moles/Vol] 3.8 mmol/L Normal 3.7-5.1 [facility] Comment on above: Order Comment: Speci men Type: BLOOD SPECIMEN Ordering Facility: [facility] Address: [address] [place] [address] Performed By: #### 1 9123-9, HSTNT, 2777-1, 83355-4, 07076-4 #### [facility] CLIA [id number] [address] [place] [address] [place] Protein [Mass/Vol] 5.8 g/dL Low 6.3-8.0 [facility] Comment on above: Order Comment: Speci men Type: BLOOD SPECIMEN Ordering Facility: [facility] Address: [address] [place] [address] Performed By: #### 1 9123-9, HSTNT, 2777-1, 23876-1, 30655-9 #### [facility] CLIA [id number] [address] [place] [address] [place] Sodium [Moles/Vol] 135 mmol/L Low 136-144 [facility] Comment on above: Order Comment: Speci men Type: BLOOD SPECIMEN Ordering Facility: [facility] Address: [address] [place] [address] Performed By: #### 1 9123-9, HSTNT, 2777-1, 71993-4, 87340-1 #### [facility] CLIA [id number] [address] [place] [address] [place] Urea nitrogen [Mass/Vol] 12 mg/dL Normal 7-21 [facility] Comment on above: Order Comment: Speci men Type: BLOOD SPECIMEN Ordering Facility: [facility] Address: [address] [place] [address] Performed By: #### 1 9123-9, HSTNT, 2777-1, 12440-7, 96321-6 #### [facility] CLIA [id number] [address] [address] [place] ECG COMPLETEon 04-08-2024 ECG COMPLETE Ventricular Rate : 7 3 BPM Atrial Rate : 73 BPM P-R Interval : 232 ms QRS Duration : 164 ms Q-T Interval : 460 ms QTC Calculation(Bazett) : 506 ms Calculated P Linwood : 43 degrees Calculated R Linwood : -16 degrees Calculated T Linwood : 132 degrees SINUS RHYTHM WITH 1ST DEGREE AV BLOCK COMPLETE LEFT BUNDLE BRANCH BLOCK ABNORMAL ECG Confirmed by ANTHONY COLÓN MD ([id number]) on 05/23/2024 11:40:00 AM NAME : JOHANNA MACDONALD PID : [id number] : 1955 Gender : Female Race : ORD : [id number] Procedure Date : Apr 08 2024 14:28:51 Edit Date : May 23 2024 11:40:07 Diagnosis: SINUS RHYTHM WITH 1ST DEGREE AV BLOCK COMPLETE LEFT BUNDLE BRANCH BLOCK ABNORMAL ECG Confirmed by ANTHONY COLÓN MD ([id number]) on 05/23/2024 11:40:00 AM Test Reason : Arrhythmia Location : 666 : J65NS J065- Overread By : ANTHONY COLÓN MD Edited By : ANTHONY COLÓN MD Referred By : , Acquired by : [id number], Normal [facility] ECG COMPLETE Ventricular Rate : 7 5 BPM Atrial Rate : 75 BPM P-R Interval : 238 ms QRS Duration : 168 ms Q-T Interval : 452 ms QTC Calculation(Bazett) : 504 ms Calculated P Linwood : 51 degrees Calculated R Linwood : -4 degrees Calculated T Linwood : 133 degrees SINUS RHYTHM WITH 1ST DEGREE AV BLOCK COMPLETE LEFT BUNDLE BRANCH BLOCK ABNORMAL ECG Confirmed by ANTHONY COLÓN MD ([id number]) on 05/23/2024 11:39:54 AM NAME : JOHANNA MACDONALD PID : [id number] : 1955 Gender : Female Race : ORD : [id number] Procedure Date : Apr 08 2024 11:18:38 Edit Date : May 23 2024 11:39:57 Diagnosis: SINUS RHYTHM WITH 1ST DEGREE AV BLOCK COMPLETE LEFT BUNDLE BRANCH BLOCK ABNORMAL ECG Confirmed by ANTHONY COLÓN MD ([id number]) on 05/23/2024 11:39:54 AM Test Reason : AMET Location : 74 : H71 021 Overread By : ANTHONY COLÓN MD Edited By : ANTHONY COLÓN MD Referred By : , Acquired by : DICK REDMOND [facility] HIGH SENSITIVITY TROPONIN To n 04-08-2024 Troponin T.cardiac High sensitivity method [Mass/Vol] 21 ng/L High <12 [facility] Comment on above: Order Comment: Speci kaveh Type: BLOOD SPECIMEN Ordering Facility: [facility] Address: [address] [place] [address] Performed By: #### 1 9123-9, HSTNT, 2777-1, 08398-6, 60800-8 #### [facility] CLIA [id number] [address] [place] [address] [place] Troponin T.cardiac High sensitivity method [Mass/Vol] 22 ng/L High <12 [facility] Comment on above: Order Comment: Santhoshi kaveh Type: BLOOD SPECIMEN Ordering Facility: [facility] Address: [address] [place] [address] Performed By: #### 1 9123-9, HSTNT, 2777-1, 01638-0, 78385-1 #### [facility] CLIA [id number] [address] [place] [address] [place] HISTORY PHYSICALon HISTORY PHYSICAL HNO ID: [id number] Author: ED SIMPSON MD Service: Critical Care Author Type: Anesthesiologist Type: H&P Filed: 04/08/2024 16:30 Note Text: Surgical ICU Progress Note Service Date: April 08, 2024 Service Time: 1413 Admission Date: 04/07/2024 Hospital Day: # 1 1 Day Post-Op CARE COORDINATION NOTE Indication for Surgery: Recurrent Ventral Incisional Hernia Important/Relevant PMH/PSH: COPD on 2L NC at home most of the time , CAD s/p PCI in 2017 and 2022 (follows with Dr. Gomes), HTN on home amlodipine, HLD on Crestor, CHF on home lasix, GERD on home PPI, T2DM on metformin NOT on insulin. PSH: incisional hernia repair followed by mesh excision for infected mesh I 2007, repeat incisional hernia repair. Hx of MRSA infection. Preoperative Hospital Course: (narrative or log of major events) Underwent robotic converted to open ventral hernia repair on 04/07. AMET from floor on 04/08 for hypotension and 1st degree heart block. Airway Difficulty: Not intubated for procedure Difficult Central Access: No Recent ECHO: Date: 04/08/2024 LVEF: Decreased RVF: Pending Code Status: Full Chronological List of Surgeries and Major Events (Diagnosis): (Surgeries in bold characters) 04/07/2024: Robotic converted to open ventral hernia repair (converted due to serosal injury) 04/08/2024: AMET to SICU for hypotension and first degree heart block Major Events within past 24 hours ; AMET to SICU for hypotension and first degree heart bloc A/P of Major Active Problems (excluding routine care and common problems): Neuro: Non-inubated Pain Control - Current pain control regimen: scheduled tylenol, PRN dilaudid CV: Hypotension, first Degree Heart Block - Ordered BNP, Echo, EKG, delta troponin (8 hours) Resp: Hx of COPD - on 2-3 L NC - Aggressive BPH - Continue home inhlaers GI: Postoperative Diet - CLD Renal/FEN: GABINO, Post-surgical - Baseline Cr - Monitor urine output and replete electrolyte as needed Heme: Postoperative Hematologic Monitoring - Monitor HANDH and s/s of bleeding - Transfuse for hemoglobin < 7 - Transfuse with products as needed. Infectious Disease: Perioperative Antibiotics - Continue vancomycin Endo: Hisotory of Type II Diabetes Mellitus - SS2 Nutrition: CLD Daily Plan Summary and Significant Findings or Concerns: - Follow up Echo, EKG, troponin, BNP - Resume postoperative care Barriers to transfer out of ICU: hemodynamic stability Disposition: SICU Other Problems I reviewed and/or Managed During This Encounter: Principal Problem: Ventral hernia without obstruction or gangrene (POA: Yes) Active Problems: Obesity, Class I, BMI 30-34.9 (POA: Unknown) Resolved Problems: * No resolved hospital problems. * Assessment AND Plan Ventral hernia without obstruction or gangrene Obesity, Class I, BMI 30-34.9 Obesity Class I (BMI 30-34.9) OBJECTIVE Vitals: 04/08/24 1037 04/08/24 1157 04/08/24 1247 04/08/24 1300 Pulse: 77 73 73 75 BP: (!) 102/39 (!) 95/28 MAP Non Invasive (Mean Arterial Pressure): (!) 55 (!) 46 Resp: 16 16 20 20 SpO2: 92% 94% 94% 94% There were no vitals filed for this visit. Intake/Output Summary (Last 24 hours) at 04/08/2024 1413 Last data filed at 04/08/2024 1240 Gross per 24 hour Intake 2220 ml Output 1245 ml Net 975 ml Weight: 72.6 kg (160 lb) (04/07/24617) Weight: 72.6 kg (160 lb) (04/07/24617) PHYSICAL EXAM Respiratory Support: Nasal Cannula Vent/Oxygen:O2 Therapy: Nasal Cannula (04/08/24 1300) Liters: 2 (04/08/24 1300) Physical Examination: (Choices are re-selectable with right click) General Appearance and Neuro: No Acute Distress, follows commands, moving all extremities. Dry mucous membranes. Heart and Vascular: Irregular rhythm; normal rate Respiratory: Lungs clear to auscultation. No wheezing, rhonchi, or rales Abdomen: Soft and Non-tender Renal: Adequate urine output Extremities/MSK/Incisio n: No edema, warm, no lesions DATA Diagnostic Tests Reviewed: Most recent labs and imaging results. Labs: Refer to Results Section and Recent Labs 04/08/24 1157 04/08/24 0816 04/07/24 2358 WBC 12.33* -- 17.25* HB 9.3* 7.8* 8.4* HCT 29.7* 24.6* 26.1* PLT 323 -- 370 NA 133* 135* 135* K 4.2 4.3 4.4 CHLOR 100 102 102 CO2 18* 22 23 BUN 12 12 10 CREAT 0.82 0.79 0.63 GLUC 104* 127* 165* CA 8.3* 8.2* 8.6 MG 1.8 -- 1.7 P -- -- 4.1 Supportive Therapies Glycemic Control: Sliding Scale Insulin DVT: Current Anticoagulants AND Antiplatelets (From admission, onward) None Active VTE Risk Category Order: 04/08/24 134 VTE RISK CATEGORY: SURGICAL MODERATE RISK (RI,MA) Active VTE Medication Orders: Active VTE Prophylaxis Orders: 04/08/24 134 VTE PHARMACOLOGIC PROPHYLAXIS CONTRAINDICATED (RI,MA) 04/08/24 134 PNEUMATIC COMPRESSION STOCKINGS (RI,MA) 04/07/241944 PNEUMATIC COMPRESSIO (more content not included)... Normal [facility] Hematocrit Auto (Bld) [Volum e fraction]on 04-08-2024 Hematocrit (Bld) [Volume fraction] 24.6 % Low 36.0-46.0 [facility] Comment on above: Order Comment: Speci men Type: ARTERIAL BLOOD SPECIMEN Ordering Facility: [facility] Address: [address] [place] [address] Performed By: #### A LLBG #### [facility] CLIA [id number] [address] [place] [address] [place] Hgb Bld-mCncon 04-08-2024 Hemoglobin (Bld) [Mass/Vol] 7.8 g/dL Low 11.5-15.5 [facility] Comment on above: Order Comment: Speci men Type: ARTERIAL BLOOD SPECIMEN Ordering Facility: [facility] Address: [address] [place] [address] Performed By: #### A LLBG #### [facility] CLIA [id number] [address] [place] [address] [place] Lactate (Bld) [Moles/Vol]on 04-08-2024 Lactate [Moles/Vol] 2.3 mmol/L High 0.5-2.2 [facility] Comment on above: Order Comment: Speci men Type: BLOOD SPECIMEN Ordering Facility: [facility] Address: [address] [place] [address] Performed By: #### 1 9123-9, HSTNT, 2777-1, 64333-9, 87921-6 #### [facility] CLIA [id number] [address] [place] [address] [place] [facility] 04-08-2024 MEDICAL ARABELLA HNO ID: [id number] Author: JADA SETH MD Service: Anesthesiology Author Type: Physician Type: Chg in Clinical Condition Filed: 04/08/2024 15:49 Note Text: MEDICAL EMERGENCY TEAM AMET CODE STATUS: Code Status: Not on file BACKGROUND 69 yo female with PMHx COPD on 2L NC, CAD s/p PCI in 2017 and 2022, HTN on home amlodipine, HLD on Crestor, CHF on home lasix, GERD on home PPI, T2DM on metformin NOT on insulin. 04/07/2024: Robotic converted to open ventral hernia repair (converted due to serosal injury) REASON FOR CALL Blood Pressure: Systolic Blood Pressure < 80 or >220 or Diastolic BP>110 ASSESSMENT Hypovolemic vs cardiogenic shock INTERVENTIONS Basic Intervention: Oxygen Administered and IVF Administration: A Bolus of LR was given. Monitoring Pulse Oximetry and TTE performed at bedside which showed mild biventricular dysfunction High sen. Troponin NTProBNP ICU consult Transfuse 2 PRBCs Rule out any surgical bleed. CT abdomen DISPOSITIONS Improved ICU consult Primary Team Notified: Yes PAST MEDICAL / SURGICAL HISTORY PAST MEDICAL HISTORY 03/21/2024: CAD (coronary artery disease) 03/21/2024: CHF (congestive heart failure) (HCC) 03/21/2024: COPD (chronic obstructive pulmonary disease) (HCC) 03/21/2024: GERD (gastroesophageal reflux disease) 03/21/2024: HLD (hyperlipidemia) 03/21/2024: HTN (hypertension) 03/21/2024: Supplemental oxygen dependent PAST SURGICAL HISTORY No date: CHOLECYSTECTOMY HX No date: PAST SURGICAL HISTORY OF Comment: hernia repair No date: PAST SURGICAL HISTORY OF Comment: cardiac cath w/ PCI No date: PAST SURGICAL HISTORY OF Comment: tumor removed from right arm No date: PAST SURGICAL HISTORY OF Comment: hysterectomy No date: PAST SURGICAL HISTORY OF Comment: eye surgery AIRWAY HISTORY Check airway noted PERTINENT PHYSICAL EXAM and INITIAL ASSESSMENT (For vital signs prior and during MET call, see nursing documentation) Pertinent Vital Signs at Time of MET Call: Visit Vitals BP 118/56 Pulse 80 Temp 36.8 ?C (98.2 ?F) Resp (!) 35 Wt 72.6 kg (160 lb) SpO2 90% BMI 32.32 kg/m? OB Status Postmenopausal Smoking Status Every Day BSA 1.74 m? Appearance: Mild distress Airway Patent: Yes Breathing Evaluation: Tachypneic Circulation Evaluation: Skin Ashen and Pulses Regular Neurologic Evaluation: GCS Evaluation: 4. Spontaneous, 5: Oriented 6: Obeys Motor commands Is the Level of Consciousness at Baseline: Yes Peripheral 04/07/24 0653 Short Right Hand 22 Gauge (Active) Placement Date/Time: 04/07/24652 Type of Peripheral Line: Short Location: Right Insertion Site: Hand Size: 22 Gauge Peripheral 04/08/24 145 Right Forearm 18 Gauge (Active) Placement Date/Time: 04/08/241451 Location: Right Insertion Site: Forearm Size: 18 Gauge PERTINENT DIAGNOSTICS Diagnostic Tests Reviewed: Most recent labs Most recent EKG: NSR Primary Team Aware/Notified: Yes CRITICAL CARE TIME: I personally spent 40 minutes directly supervising and providing critical care in the prevention of imminent deterioration as noted above, exclusive of any procedures I performed or supervised. I have reviewed, approved and signed the paper MET note. Please refer to this for complete orders and nursing/respiratory documentation. SIGNATURE: Jada Seth MD PATIENT NAME: Johanna Macdonald DATE: April 08, 2024 TIME: 3:41 PM Normal [facility] Magnesium SerPl-mCncon 04-08 Magnesium [Mass/Vol] 1.9 mg/dL Normal 1.7-2.3 [facility] Comment on above: Order Comment: Specesthela linn Type: BLOOD SPECIMEN Ordering Facility: [facility] Address: [address] [place] [address] Performed By: #### 1 9123-9, HSTNT, 2777-1, 85020-7, 77386-1 #### [facility] CLIA [id number] [address] [place] [address] [place] Magnesium [Mass/Vol] 1.6 mg/dL Low 1.7-2.3 [facility] Comment on above: Order Comment: Peter linn Type: BLOOD SPECIMEN Ordering Facility: [facility] Address: [address] [place] [address] Performed By: #### 1 9123-9, HSTNT, 2777-1, 37216-8, 02649-2 #### [facility] CLIA [id number] [address] [place] [place] [address] [place] Magnesium [Mass/Vol] 1.8 mg/dL Normal 1.7-2.3 [facility] Comment on above: Order Comment: Speci men Type: BLOOD SPECIMEN Ordering Facility: [facility] Address: [address] [place] [address] Performed By: #### 1 9123-9, HSTNT, 7-1, 39874-0, 77931-1 #### [facility] CLIA [id number] [address] [place] [place] [address] [place] NT-[facility]NP [facility] Natriuretic peptide.B prohormone N-Terminal [Mass/Vol] 406 pg/mL High <125 [facility] Comment on above: Order Comment: Speci men Type: BLOOD SPECIMEN Ordering Facility: [facility] Address: [address] [place] [address] Performed By: #### 1 9123-9, HSTNT, 7-1, 02981-4, 50485-1 #### [facility] CLIA [id number] [address] [place] [place] [address] [place] Natriuretic peptide.B prohormone N-Terminal [Mass/Vol] 645 pg/mL High <125 [facility] Comment on above: Order Comment: Speci men Type: BLOOD SPECIMEN Ordering Facility: [facility] Address: [address] [place] [address] Performed By: #### 1 9123-9, HSTNT, 7-1, 54302-7, 47563-0 #### [facility] CLIA [id number] [address] [place] [address] [place] NURSING PROGon 04-08-2024 NURSING PROG HNO ID: [id number] Author: HUSIEN, ABEER, RN Service: ? Author Type: Registered Nurse Type: Nursing Progress Note Filed: 04/08/2024 12:28 Note Text: Event(s) / Intervention Note: PATIENT NAME: Johanna Macdonald Patient Location: [facility] Room: [place] [address] The patient was observed having the following problems: change in vital signs (see Epic). The time of the event occurred at: 0900. The following intervention(s) were initiated: AMET initiated., Dr. Mabry notified, Dr. Leahy at bedside, 2units of PRBC medication given., and LR bolus. After the initiated interventions, the following observation(s) were made: patient appears improved. Report given to ICU(j65-3) nurse and patient transferred to ICU. Normal [facility] PT EDon 04-08-2024 PT ED HNO ID: [id number] Author: SAMPSON TERRY DTR Service: Nutrition Therapy Author Type: Blanker Operator Type: Patient Education Filed: 04/08/2024 12:03 Note Text: NUTRITION THERAPY PATIENT EDUCATION SERVICE DATE: 04/08/2024 SERVICE TIME: 910 TOPIC: Diet: Gastrointestinal diet Exemption from nutrition education: Patient not ready to learn at this time due to Not ready to learn at time of visit. Added nutritional supplements. LEARNING ASSESSMENT Individuals Assessed: Patient Preferred Learning Method: Written Instruction Barriers to Learning: None Evident LEARNING RESPONSE Instruction Provided to: Patient Patient / Family Response: Method of Instruction: Written instruction/Handouts Material(s) Provided to Patient: G/L for GI Soft Diet Follow-Up Plan: Recommend - Recommend continued instruction and follow up as directed Referral (Recommendation): MNT Billing: $ Routine Care : 1-15 minutes SIGNATURE: Sampson Terry DTR PATIENT NAME: Johanna Macdonald DATE: April 08, 2024 TIME: 12:02 PM PAGER: Normal [facility] PT panel Coag (PPP)on 2023 INR Coag (PPP) [Relative time] 1.1 {INR} Normal 0.9-1.3 [facility] Comment on above: Order Comment: Speci men Type: BLOOD SPECIMEN Ordering Facility: [facility] Address: [address] [place] [address] Result Comment: Aline min K Antagonist (VKA) Therapeutic Range: INR 2 to 3 (Target INR of 2.5) Note: For patients treated with VKA drugs, such as warfarin, the [place] [employer] 2012 Guideline recommends a therapeutic INR range of 2 to 3 (target INR of 2.5). This recommendation includes high-risk patients with antiphospholipid syndrome with previous arterial or venous thromboembolism, current-generation mechanical or bioprosthetic aortic heart valve replacement. Note: Patients with mechanical aortic valve replacement and additional risk factors for thromboembolic events (atrial fibrillation, previous thromboembolism, LV dysfunction, hypercoagulable conditions) or an older generation mechanical AVR (i.e., ball in-Cage) or any mechanical MVR should have a INR therapeutic range of 2.5 to 3.5 (target INR of 3). Joyce KUO, et al. Chest 2012, 141:7S-47S Margot RAMSEY, et al. [facility] 2017, 70: 252-289 Performed By: #### 1 9123-9, HSTNT, 2777-1, 35854-4, 91973-5 #### [facility] CLIA [id number] [address] [place] [address] [place] PT Coag (PPP) [Time] 11.9 s Normal 9.7-13.0 [facility] Comment on above: Order Comment: Speci men Type: BLOOD SPECIMEN Ordering Facility: [facility] Address: [address] [place], [place] [address] Performed By: #### 1 9123-9, HSTNT, 2777-1, 25794-7, 58411-4 #### [facility] CLIA [id number] [address] [place] [id number] [place] Phosphate SerPl-mCncon 04-08 Phosphate [Mass/Vol] 3.2 mg/dL Normal 2.7-4.8 [facility] Comment on above: Order Comment: Peter linn Type: BLOOD SPECIMEN Ordering Facility: [facility] Address: [address] [place] [address] Performed By: #### 1 9123-9, HSTNT, 2777-1, 18716-4, 92476-5 #### [facility] CLIA [id number] [address] [place] [place] [address] [place] Phosphate [Mass/Vol] 3.8 mg/dL Normal 2.7-4.8 [facility] Comment on above: Order Comment: Speci men Type: BLOOD SPECIMEN Ordering Facility: [facility] Address: [address] [place] [address] Performed By: #### 1 9123-9, HSTNT, 2777-1, 24889-5, 39150-7 #### [facility] CLIA [id number] [address] [place] [place] [address] [place] STAPHYLOCOCCUS AUREUS AND MR SA SCREEN, PCR, NASALon 04-08-2024 S. aureus and MRSA panel RAMANDEEP+probe (Nose) Not detected Normal Not Detected [facility] Comment on above: Order Comment: Speci men Type: BLOOD SPECIMEN Ordering Facility: [facility] Address: [address] [place] [address] Performed By: #### 1 9123-9, HSTNT, 2777-1, 62042-0, 56365-0 #### [facility] CLIA [id number] [address] [place] [place] [address] [place] XR CHEST 1V FRONTAL PORTon 0 04-08-2024 XR CHEST 1V FRONTAL PORT * * *Final Report* * * DATE OF EXAM: Apr 08 2024 3:44PM JIX [id number] - XR CHEST 1V FRONTAL PORT / PROCEDURE REASON: Bradycardia * * * * Physician Interpretation * * * * EXAMINATION: CHEST RADIOGRAPH (PORTABLE SINGLE VIEW AP) Exam Date/Time: 04/08/2024 3:44 PM Clinical History: Bradycardia MQ: [id number] Comparison: No prior chest radiograph is available for comparison. RESULT: Lines, tubes, and devices: None. Lungs and pleura: Bibasilar opacities may represent atelectasis or pneumonia/aspiration. Mild blunting of the costophrenic angles likely represents small pleural effusions. There is no pneumothorax. Cardiomediastinal silhouette: The cardiomediastinal silhouette is mildly enlarged. The aortic arch is atherosclerotic. IMPRESSION: See result. Internet Database Specialist: PSCB Transcribe Date/Time: Apr 08 2024 5:01P Dictated by : SARAH STEVENS MD This examination was interpreted and the report reviewed and electronically signed by: SARAH STEVENS MD on Apr 08 2024 5:03PM EST [id number] Normal [facility] aPTT PPPon 04-08-2024 aPTT Coag (PPP) [Time] 23.4 s Normal 23.0-32.4 [facility] Comment on above: Order Comment: Speci men Type: BLOOD SPECIMEN Ordering Facility: [facility] Address: [address] [place] [address] Performed By: #### 1 9123-9, HSTNT, 2777-1, 64615-4, 95070-8 #### [facility] CLIA [id number] [address] [place] [address] [place] ANES POSTPROC EVALon 024 ANES POSTPROC EVAL HNO ID: [id number] Author: DHAVAL ROME MD Service: ? Author Type: Anesthesiologist Type: Anesthesia Postprocedure Evaluation Filed: 04/07/2024 14:38 Note Text: POST ANESTHESIA EVALUATION NOTE : 1955 Procedure Summary Date: 04/07/24 Room / Location: [address] [facility] Anesthesia Start: 730 Anesthesia Stop: 135 Procedure: HERNIORRHAPHY VENTRAL RECURRENT REDUCIBLE GREATER THAN 10cm (Abdomen) Diagnosis: Preoperative examination Incisional hernia, without obstruction or gangrene (Preoperative examination [Z01.818]) (Incisional hernia, without obstruction or gangrene [K43.2]) Surgeons: Juju Orourke MD Responsible Provider: Dhaval Rome MD Anesthesia Type: general ASA Status: 3 Anesthesia Type: general Airway Type: ETT Last Vitals Vitals Value Taken Time BP 138/76 04/07/24 1430 Temp 36.7 ?C (98.1 ?F) 04/07/24 1400 Pulse 72 04/07/24 1436 Resp 23 04/07/24 1436 SpO2 91 % 04/07/24 1436 Vitals shown include unfiled device data. Post Anesthesia Patient Status Patient Evaluation: bedside. Neurological Status: aware and responsive. Pulmonary Status: breathing comfortably on room air Airway Control: returned to baseline unsupported. Cardiovascular Status: stable. Pain Management: clinically adequate Postoperative Hydration: acceptable. Intraoperative Events: no significant anesthesia events Post Operative Nausea/Vomiting Status: no significant post operative nausea or vomiting Recommendation: continue current plan of care. Anesthesia Observations No Documentation SIGNATURE: Dhaval Rome MD PATIENT NAME: Johanna Macdonald DATE: April 07, 2024 TIME: 2:37 PM CSN: [id number] Normal [facility] ANES PRE-OPon 04-07-2024 ANES PRE-OP HNO ID: [id number] Author: DHAVAL ROME MD Service: ? Author Type: Anesthesiologist Type: Anesthesia Preprocedure Evaluation Filed: 04/07/2024 07:15 Note Text: ANESTHESIOLOGY DAY OF SURGERY NOTE : 1955 Procedure Information Date/Time: 04/07/24729 Procedure: HERNIORRHAPHY VENTRAL RECURRENT REDUCIBLE GREATER THAN 10cm (Abdomen) Location: [facility] Surgeons: Juju Orourke MD Estimated body mass index is 32.32 kg/m? as calculated from the following: Height as of 03/21/24: 149.9 cm (4' 11 ). Weight as of this encounter: 72.6 kg (160 lb). Most recent hematocrit and potassium results: Hematocrit 36.3 03/21/2024 Potassium 4.5 03/21/2024 Relevant Problems No relevant active problems I - PHYSICAL EVALUATION AIRWAY Patient intubated: No. Tracheostomy tube not present Mallampati: I. TM distance: >3 FB. Neck ROM: full ROM without neurological symptoms. Mouth opening: adequate. Short neck: no. Thick neck: no II - ANESTHESIA PLAN ASA Score: 3 Anesthetic Plan: general Airway type: ETT The patient is a current smoker. NPO Status: adequate Beta Jordyn Monitoring Plan Monitoring plan: standard ASA. Post Procedure Analgesic Plan Postoperative analgesic plan: parenteral or oral opioids. Informed Consent Anesthetic risks, benefits, alternatives, personnel and consent discussed: yes. Patient / Responsible [employer] agrees to proceed: yes Patient / Surrogate agrees to blood products: Yes Vitals Value Taken Time BP 142/62 04/07/24617 Pulse 67 04/07/24617 Resp 18 04/07/24617 Temp 36 ?C (96.8 ?F) 04/07/24617 SpO2 97 % 04/07/24617 No current facility-administered medications on file as of 04/07/2024. Outpatient Medications as of 04/07/2024 Medication Sig metFORMIN (GLUCOPHAGE) 500 mg tablet Take 1 tablet every day by oral route for 90 days. ipratropium-albuterol (DUONEB) 0.5 mg-3 mg(2.5 mg base)/3 mL nebu INHALE 3 (THREE) mls BY MOUTH via NEBULIZER FOUR TIMES DAILY atorvastatin (LIPITOR) 80 mg tablet Take 1 tablet by mouth daily at bedtime. potassium chloride (K-TAB) 10 mEq tablet Take 1 tablet by mouth every 48 hours. esomeprazole (NEXIUM) 40 mg capsule Take 40 mg by mouth two times a day. isosorbide mononitrate ER (IMDUR) 30 mg 24 hr tablet Take 1 tablet by mouth every morning. aspirin, enteric coated (ASPIRIN, ENTERIC COATED) 81 mg EC tablet in the morning. amLODIPine (NORVASC) 10 mg tablet Take 10 mg by mouth once daily. furosemide (LASIX) 40 mg tablet Take 40 mg by mouth once daily. I have interviewed and examined the patient. I have reviewed the medical record and/or the pre-anesthesia evaluation, pertinent labs, and test results. This contains updated information obtained within 48 hours of Surgery/Procedure. SIGNATURE: Dhaval Rome MD PATIENT NAME: Johanna Macdonald DATE: April 07, 2024 TIME: 7:15 AM CSN: [id number] Normal [facility] Basic metabolic 2000 panelon 04-07-2024 Anion gap [Moles/Vol] 10 mmol/L Normal 8-15 [facility] Comment on above: Order Comment: Speci men Type: BLOOD SPECIMEN Ordering Facility: [facility] Address: [address] [place] [address] Performed By: #### 1 9123-9, HSTNT, 2777-1, 45411-7, 14523-9 #### [facility] CLIA [id number] [address] [place] [address] [place] Calcium [Mass/Vol] 8.6 mg/dL Normal 8.5-10.2 [facility] Comment on above: Order Comment: Speci men Type: BLOOD SPECIMEN Ordering Facility: [facility] Address: [address] [place] [address] Performed By: #### 1 9123-9, HSTNT, 2777-1, 93560-0, 35064-6 #### [facility] CLIA [id number] [address] [place] [address] [place] Chloride [Moles/Vol] 102 mmol/L Normal 98-107 [facility] Comment on above: Order Comment: Speci men Type: BLOOD SPECIMEN Ordering Facility: [facility] Address: [address] [place] [address] Performed By: #### 1 9123-9, HSTNT, 2777-1, 64449-0, 27073-5 #### [facility] CLIA [id number] [address] [place] [address] [place] CO2 [Moles/Vol] 23 mmol/L Normal 22-30 [facility] Comment on above: Order Comment: Speci men Type: BLOOD SPECIMEN Ordering Facility: [facility] Address: [address] [place] [address] Performed By: #### 1 9123-9, HSTNT, 2777-1, 71894-6, 82247-9 #### [facility] CLIA [id number] [address] [place] [address] [place] Creatinine [Mass/Vol] 0.63 mg/dL Normal 0.58-0.96 [facility] Comment on above: Order Comment: Speci men Type: BLOOD SPECIMEN Ordering Facility: [facility] Address: [address] [place] [address] Performed By: #### 1 9123-9, HSTNT, 2777-1, 84943-4, 93885-1 #### [facility] CLIA [id number] [address] [place] [address] [place] Creatinine and Glomerular filtration rate.predicted panel (S/P/Bld) 96 mL/min/1.73m??? Normal >=60 [facility] Comment on above: Order Comment: Peter linn Type: BLOOD SPECIMEN Ordering Facility: [facility] Address: [address] [place] [address] Result Comment: Kayli mated Glomerular Filtration Rate (eGFR) is calculated using the 2020 CKD-EPI creatinine equation. This equation utilizes serum creatinine, sex, and age as parameters. The creatinine assay has traceable calibration to isotope dilution-mass spectrometry. Refer to KDIGO guidelines for clinical interpretation. In patients with unstable renal function, e.g. those with acute kidney injury, the eGFR may not accurately reflect actual GFR. Performed By: #### 1 9123-9, HSTNT, 2777-1, 62673-6, 79384-2 #### [facility] CLIA [id number] [address] [place] [address] [place] Glucose [Mass/Vol] 165 mg/dL High 74-99 [facility] Comment on above: Order Comment: Peter linn Type: BLOOD SPECIMEN Ordering Facility: [facility] Address: [address] [place] [address] Result Comment: The [place] [employer] (ADA) provides guidance for cutoff values for fasting glucose and random glucose. The ADA defines fasting as no caloric intake for at least 8 hours. Fasting plasma glucose results between 100 to 125 mg/dL indicate increased risk for diabetes (prediabetes). Fasting plasma glucose results greater than or equal to 126 mg/dL meet the criteria for diagnosis of diabetes. In the absence of unequivocal hyperglycemia, results should be confirmed by repeat testing. In a patient with classic symptoms of hyperglycemia or hyperglycemic crisis, random plasma glucose results greater than or equal to 200 mg/dL meet the criteria for diagnosis of diabetes. Reference: Standards of Medical Care in Diabetes 2016, [place] [employer]. Diabetes Care. 2016.39(Suppl 1). Performed By: #### 1 9123-9, HSTNT, 2777-1, 57776-5, 36432-7 #### [facility] CLIA [id number] [address] [place] [address] [place] Potassium [Moles/Vol] 4.4 mmol/L Normal 3.7-5.1 [facility] Comment on above: Order Comment: Speci men Type: BLOOD SPECIMEN Ordering Facility: [facility] Address: [address] [place] [address] Performed By: #### 1 9123-9, HSTNT, 2777-1, 91405-0, 49920-4 #### [facility] CLIA [id number] [address] [place] [address] [place] Sodium [Moles/Vol] 135 mmol/L Low 136-144 [facility] Comment on above: Order Comment: Speci men Type: BLOOD SPECIMEN Ordering Facility: [facility] Address: [address] [place] [address] Performed By: #### 1 9123-9, HSTNT, 2777-1, 86729-9, 21427-1 #### [facility] CLIA [id number] [address] [place] [address] [place] Urea nitrogen [Mass/Vol] 10 mg/dL Normal 7-21 [facility] Comment on above: Order Comment: Speci men Type: BLOOD SPECIMEN Ordering Facility: [facility] Address: [address] [place] [address] Performed By: #### 1 9123-9, HSTNT, 2777-1, 86517-1, 18750-2 #### [facility] CLIA [id number] [address] [place] [address] [place] CBC W Auto Differential pane l (Bld)on 04-07-2024 Anisocytosis Ql (Bld) Present Normal [facility] Comment on above: Order Comment: Speci men Type: BLOOD SPECIMEN Ordering Facility: [facility] Address: [address] [place] [address] Performed By: #### 1 9123-9, HSTNT, 7-, 82006-3, 06601-2 #### [facility] CLIA [id number] [address] [place] [address] [place] Basophils (Bld) [#/Vol] 0.03 10*3/uL Normal <0.11 [facility] Comment on above: Order Comment: Speci men Type: BLOOD SPECIMEN Ordering Facility: [facility] Address: [address] [place] [address] Performed By: #### 1 9123-9, HSTNT, 2776-, 26699-5, 29953-5 #### [facility] CLIA [id number] [address] [place] [address] [place] Basophils/100 WBC (Bld) 0.2 % Normal [facility] Comment on above: Order Comment: Speci men Type: BLOOD SPECIMEN Ordering Facility: [facility] Address: [address] [place] [address] Performed By: #### 1 9123-9, HSTNT, 2776-, 94330-7, 38520-0 #### [facility] CLIA [id number] [address] [place] [address] [place] Differential cell count method Nom (Bld) Auto Normal [facility] Comment on above: Order Comment: Speci men Type: BLOOD SPECIMEN Ordering Facility: [facility] Address: [address] [place] [address] Performed By: #### 1 9123-9, HSTNT, 2776-, 51057-3, 00603-2 #### [facility] CLIA [id number] [address] [place] [address] [place] Eosinophils (Bld) [#/Vol] 10*3/uL Normal <0.46 [facility] Comment on above: Order Comment: Speci men Type: BLOOD SPECIMEN Ordering Facility: [facility] Address: [address] [place] [address] Performed By: #### 1 9123-9, HSTNT, 2777-1, 61884-4, 90725-0 #### [facility] CLIA [id number] [address] [place] [address] [place] Eosinophils/100 WBC (Bld) 0.0 % Normal [facility] Comment on above: Order Comment: Speci men Type: BLOOD SPECIMEN Ordering Facility: [facility] Address: [address] [place] [address] Performed By: #### 1 9123-9, HSTNT, 2777-1, 58956-0, 68317-3 #### [facility] CLIA [id number] [address] [place] [address] [place] Erythrocyte distribution width (RBC) [Ratio] 23.6 % High 11.5-15.0 [facility] Comment on above: Order Comment: Speci men Type: BLOOD SPECIMEN Ordering Facility: [facility] Address: [address] [place] [address] Performed By: #### 1 9123-9, HSTNT, 7-1, 22570-1, 44967-4 #### [facility] CLIA [id number] [address] [place] [address] [place] Hematocrit (Bld) [Volume fraction] 26.1 % Low 36.0-46.0 [facility] Comment on above: Order Comment: Speci men Type: BLOOD SPECIMEN Ordering Facility: [facility] Address: [address] [place] [address] Performed By: #### 1 9123-9, HSTNT, 2777-1, 14796-8, 56642-7 #### [facility] CLIA [id number] [address] [place] [address] [place] Hemoglobin (Bld) [Mass/Vol] 8.4 g/dL Low 11.5-15.5 [facility] Comment on above: Order Comment: Speci men Type: BLOOD SPECIMEN Ordering Facility: [facility] Address: [address] [place] [address] Performed By: #### 1 9123-9, HSTNT, 2777-1, 17312-6, 80700-4 #### [facility] CLIA [id number] [address] [place] [address] [place] Immature granulocytes (Bld) [#/Vol] 0.10 10*3/uL High <0.10 [facility] Comment on above: Order Comment: Speci men Type: BLOOD SPECIMEN Ordering Facility: [facility] Address: [address] [place] [address] Performed By: #### 1 9123-9, HSTNT, 2777-, 93685-8, 65898-7 #### [facility] CLIA [id number] [address] [place] [address] [place] Immature granulocytes/100 WBC (Bld) 0.6 % Normal [facility] Comment on above: Order Comment: Speci men Type: BLOOD SPECIMEN Ordering Facility: [facility] Address: [address] [place] [address] Performed By: #### 1 9123-9, HSTNT, 2777-, 29846-6, 78302-3 #### [facility] CLIA [id number] [address] [place] [address] [place] Lymphocytes (Bld) [#/Vol] 1.56 10*3/uL Normal 1.00-4.00 [facility] Comment on above: Order Comment: Speci men Type: BLOOD SPECIMEN Ordering Facility: [facility] Address: [address] [place] [address] Performed By: #### 1 9123-9, HSTNT, 2777-, 45847-0, 21255-3 #### [facility] CLIA [id number] [address] [place] [address] [place] Lymphocytes/100 WBC (Bld) 9.0 % Normal [facility] Comment on above: Order Comment: Speci men Type: BLOOD SPECIMEN Ordering Facility: [facility] Address: [address] [place] [address] Performed By: #### 1 9123-9, HSTNT, 2777-, 26633-7, 37493-6 #### [facility] CLIA [id number] [address] [place] [address] [place] MCH (RBC) [Entitic mass] 25.0 pg Low 26.0-34.0 [facility] Comment on above: Order Comment: Speci men Type: BLOOD SPECIMEN Ordering Facility: [facility] Address: [address] [place] [address] Performed By: #### 1 9123-9, HSTNT, 2777-, 62345-6, 04845-5 #### [facility] CLIA [id number] [address] [place] [address] [place] MCHC (RBC) [Mass/Vol] 32.2 g/dL Normal 30.5-36.0 [facility] Comment on above: Order Comment: Speci men Type: BLOOD SPECIMEN Ordering Facility: [facility] Address: [address] [place] [address] Performed By: #### 1 9123-9, HSTNT, 2777-, 93063-6, 27473-8 #### [facility] CLIA [id number] [address] [place] [address] [place] MCV (RBC) [Entitic vol] 77.7 fL Low 80.0-100.0 [facility] Comment on above: Order Comment: Speci men Type: BLOOD SPECIMEN Ordering Facility: [facility] Address: [address] [place] [address] Performed By: #### 1 9123-9, HSTNT, 2777-1, 37862-4, 97062-5 #### [facility] CLIA [id number] [address] [place] [address] [place] Monocytes (Bld) [#/Vol] 1.75 10*3/uL High <0.87 [facility] Comment on above: Order Comment: Speci men Type: BLOOD SPECIMEN Ordering Facility: [facility] Address: [address] [place] [address] Performed By: #### 1 9123-9, HSTNT, 2777-1, 53847-2, 43975-0 #### [facility] CLIA [id number] [address] [place] [address] [place] Monocytes/100 WBC (Bld) 10.1 % Normal [facility] Comment on above: Order Comment: Speci men Type: BLOOD SPECIMEN Ordering Facility: [facility] Address: [address] [place] [address] Performed By: #### 1 9123-9, HSTNT, 2777-1, 51875-1, 03235-0 #### [facility] CLIA [id number] [address] [place] [address] [place] Neutrophils (Bld) [#/Vol] 13.81 10*3/uL High 1.45-7.50 [facility] Comment on above: Order Comment: Speci men Type: BLOOD SPECIMEN Ordering Facility: [facility] Address: [address] [place] [address] Performed By: #### 1 9123-9, HSTNT, 2777-1, 04523-8, 32239-7 #### [facility] CLIA [id number] [address] [place] [address] [place] Neutrophils/100 WBC (Bld) 80.1 % Normal [facility] Comment on above: Order Comment: Speci men Type: BLOOD SPECIMEN Ordering Facility: [facility] Address: [address] [place], [place] [address] Result Comment: Diff erential confirmed by visual scan of peripheral blood smear slide. Performed By: #### 1 9123-9, HSTNT, 2776-, 02523-6, #### [facility] CLIA [id number] [address] [place] [address] [place] Nucleated RBC (Bld) [#/Vol] 10*3/uL Normal <0.01 [facility] Comment on above: Order Comment: Speci men Type: BLOOD SPECIMEN Ordering Facility: [facility] Address: [address] [place] [address] Performed By: #### 1 9123-9, HSTNT, 2776-, 76895-2, #### [facility] CLIA [id number] [address] [place] [address] [place] Nucleated RBC/100 WBC (Bld) [Ratio] 0.0 /100 WBC Normal [facility] Comment on above: Order Comment: Speci men Type: BLOOD SPECIMEN Ordering Facility: [facility] Address: [address] [place] [address] Performed By: #### 1 9123-9, HSTNT, 2776-, 34932-7, #### [facility] CLIA [id number] [address] [place] [address] [place] Ovalocytes LM Ql (Bld) Few Normal [facility] Comment on above: Order Comment: Speci men Type: BLOOD SPECIMEN Ordering Facility: [facility] Address: [address] [place] [address] Performed By: #### 1 9123-9, HSTNT, 2776-, 99312-8, #### [facility] CLIA [id number] [address] [place] [address] [place] Platelet mean volume (Bld) [Entitic vol] 9.6 fL Normal 9.0-12.7 [facility] Comment on above: Order Comment: Speci men Type: BLOOD SPECIMEN Ordering Facility: [facility] Address: [address] [place] [address] Performed By: #### 1 9123-9, HSTNT, 2777-1, 99788-0, 59503-3 #### [facility] CLIA [id number] [address] [place] [address] [place] Platelets (Bld) [#/Vol] 370 10*3/uL Normal 150-400 [facility] Comment on above: Order Comment: Speci men Type: BLOOD SPECIMEN Ordering Facility: [facility] Address: [address] [place] [address] Performed By: #### 1 9123-9, HSTNT, 2777-1, 05838-1, 89646-5 #### [facility] CLIA [id number] [address] [place] [address] [place] RBC (Bld) [#/Vol] 3.36 10*6/uL Low 3.90-5.20 [facility] Comment on above: Order Comment: Speci men Type: BLOOD SPECIMEN Ordering Facility: [facility] Address: [address] [place] [address] Performed By: #### 1 9123-9, HSTNT, 2777-1, 73556-7, 84659-9 #### [facility] CLIA [id number] [address] [place] [address] [place] RBC FRAGMENTS Few Abnormal None Seen [facility] Comment on above: Order Comment: Speci men Type: BLOOD SPECIMEN Ordering Facility: [facility] Address: [address] [place] [address] Performed By: #### 1 9123-9, HSTNT, 2777-1, 92647-5, 44291-2 #### [facility] CLIA [id number] [address] [place] [address] [place] RED CELL MORPH Reviewed: see result s of individual morphologies Normal [facility] Comment on above: Order Comment: Speci men Type: BLOOD SPECIMEN Ordering Facility: [facility] Address: [address] [place] [address] Performed By: #### 1 9123-9, HSTNT, 2777-1, 30856-2, 43006-4 #### [facility] CLIA [id number] [address] [place] [place] [address] [place] WBC (Bld) [#/Vol] 17.25 10*3/uL High 3.70-11.00 [facility] Comment on above: Order Comment: Speci men Type: BLOOD SPECIMEN Ordering Facility: [facility] Address: [address] [place] [address] Performed By: #### 1 9123-9, HSTNT, 2777-1, 77247-5, 89112-3 #### [facility] CLIA [id number] [address] [place] [address] [place] Magnesium SerPl-mCncon 04-07 Magnesium [Mass/Vol] 1.7 mg/dL Normal 1.7-2.3 [facility] Comment on above: Order Comment: Speci men Type: BLOOD SPECIMEN Ordering Facility: [facility] Address: [address] [place] [address] Performed By: #### 1 9123-9, HSTNT, 2777-1, 01654-7, 09974-8 #### [facility] CLIA [id number] [address] [place] [address] [place] NURSING PROGon 04-07-2024 NURSING PROG HNO ID: [id number] Author: STARLA RIVERA, DAVID Service: Nursing Author Type: Registered Nurse Type: Nursing Progress Note Filed: 04/07/2024 16:15 Note Text: Pt did well postoperatively. Vss, pain controlled with prn IV/PO meds. No acute distress noted or complaints voiced. Pt being discharged from pacu in stable condition. Normal [facility] OPERATIVE NOon 04-07-2024 OPERATIVE NO HNO ID: [id number] Author: JUJU OROURKE MD Service: General Surgery Author Type: Physician Type: Operative Report Filed: 04/07/2024 14:34 Note Text: OPERATIVE REPORT Name: Johanna Macdonald : 1955 MR#: [id number] Date of service: April 07, 2024 Start time: 811 Stop time: 1238 Surgeon(s): Juju Orourke MD Crew Supervisor(s): MD Kristy Cramer MD Procedure(s): 1. Robotic converted to open right myofascial advancement flap 2. Open left myofascial advancement flap 3. Repair of recurrent incarcerated incisional hernia 4. Implantation of 30 cm x 30 cm Prolene mesh 5. Excision of old abdominal wall mesh Anesthesia: general Pre-Op/Pre-Procedure Diagnosis: recurrent incarcerated incisional hernia Post-Op/Post-Procedure Diagnosis: recurrent incarcerated incisional hernia Operative Findings: Incisional hernia measuring 12 cm wide by 23 cm long Dense intra-abdominal adhesions to prior mesh Estimated Blood Loss: 100 mL Specimens: none Implantable Devices: 30 cm x 30 cm Prolene mesh Drains: 2 retromuscular drains Complications: none Indication for Operation: Johanna Macdonald is a 69 year old female who presents with a symptomatic incisional hernia, having undergone two previous repairs with mesh infections and mesh excisions. She still has some old hernia mesh in her abdominal wall. Current symptoms include pain and a bulge. We discussed the risks and benefits of the operation and the patient agreed to proceed. She was enrolled in the ROVHR trial. Procedure Details: The patient was transported to the operating room and placed supine on the operating table. A preoperative safety huddle was performed. The patient received pre-operative IV antibiotics and subcutaneous heparin. Sequential compression devices were placed on the patient's lower extremities. General anesthesia was induced and an endotracheal tube was placed in the patient's airway. A Buenrostro catheter was placed in the bladder. The patient was then appropriately positioned with padding and safety belts. The abdomen was prepped and draped in a sterile fashion. A time out was performed before incision. We entered the abdomen with a 5 mm optical trocar in the left upper quadrant. We placed 2 additional 8 mm ports in the left abdomen to triangulate the hernia. The 5 mm port was upsized to an 8 mm port. The robotic cart was brought in and docked. I began taking down intra-abdominal adhesions which were densely adherent to the prior mesh. I worked for probably 30 minutes doing this but made a serosal injury and decided to convert to an open operation. We made a midline incision, entering the abdomen sharply. The bowel and omentum were taken down off of the anterior abdominal wall. Intra-abdominal adhesions were dense to the prior mesh. I took them down with a knife. 1 small serosal injury was made which was unavoidable and due to to the patient's adhesive disease. It was repaired with interrupted 3-0 Vicryl suture. After carefully inspecting the bowel, a towel was placed over the viscera. We completely resected the old mesh from the abdominal wall. The defect was 12 cm wide by 25 cm long. The fascia would not come back together primarily, so we performed posterior components separation. We started on the right side. The posterior rectus sheath was incised and from the rectus muscle, carefully preserving lateral neurovascular bundles. The posterior lamella of the internal oblique aponeuroris and transversus abdominis muscle were divided to enter the preperitoneal plane. The dissection continued laterally to the psoas, superiorly along the costal margin to the xiphoid, and into the space of Retzius inferiorly. The round ligament was divided. This gave us excellent advancement of the fascial elements. Next, the same dissection was performed on the contralateral side. The posterior rectus sheath was incised and from the rectus muscle, carefully preserving lateral neurovascular bundles. The posterior lamella of the internal oblique aponeuroris and transversus abdominis muscle were divided to enter the preperitoneal plane. The dissection continued laterally to the psoas, superiorly along the costal margin to the xihpoid, and into the space of Retzius inferiorly. The round ligament was divided. This gave us excellent advancement of the fascial elements. We then closed posterior rectus sheath with running 2-0 Vicryl, completely excluding the viscera from the large preperitoneal pocket. We policed for hemostasis. A 30 cm x 30 cm Prolene mesh was placed in the retromuscular space, tucking it under the xiphoid, pubis, and costal margins. This gave us excellent mesh coverage of the defect. wo drains were placed above the mesh and secured at the skin before closing the anterior fascia. The midline was closed with interrupted [id number]-[id number] sutures using #1 P (more content not included)... Normal [facility] Phosphate SerPl-mCncon 04-07 Phosphate [Mass/Vol] 4.1 mg/dL Normal 2.7-4.8 [facility] Comment on above: Order Comment: Speci men Type: BLOOD SPECIMEN Ordering Facility: [facility] Address: [address] [place] [address] Performed By: #### 1 9123-9, HSTNT, 2777-1, 91339-3, 59421-2 #### [facility] CLIA [id number] [address] [place] [address] [facility] CNPNon 03-24-2024 CNPN Telephone (MNPACC) JOHANNA MACDONALD ([id number]) 1955 F Date Time Provider Department 03/24/24 [facility] During your visit today, we recorded the following information about you: Raegan Quinn RN 03/24/2024 9:24 AM Signed Dos 04/[address]George Gomes's office [employer] , They will be faxing over most recent cardiology office visit and all available testing. Spoke to Medical Records at [facility] . They will be faxing most recent pulmonary note from 02/[address] Martinez and most recent PFT's. Both will be faxed to [facility]. Raegan Quinn RN March 24, 2024 9:23 AM Alma Delia ParraQilia 03/24/2024 11:47 AM Signed Outside Cardiology office note and Pulmonary office note have been scanned in. Allergies As of Date: 03/24/2024 Noted Allergy Reaction ATENOLOL 08/03/2014 10 - Anaphylaxis 16 - Unknown Comments: Throat swelling. DOXYCYCLINE 07/04/2022 16 - Unknown PSEUDOEPHEDRINE 07/04/2022 5 - Intolerance AMOXICILLIN 08/03/2014 9 - Itching 14 - Other: See Comments CEPHALEXIN 08/03/2014 9 - Itching 2 - Rash CIPROFLOXACIN 08/03/2014 9 - Itching 2 - Rash CLARITHROMYCIN 08/03/2014 9 - Itching 2 - Rash QUINIDINE 08/03/2014 9 - Itching RED DYE 08/03/2014 16 - Unknown Comments: Icing SULFA (SULFONAMIDE ANTIBIOTICS) 08/03/2014 9 - Itching 16 - Unknown Date Reviewed: 03/21/2024 Reviewed by: Tawana Robertson PA-C - Fully Assessed Reason for Visit: Request Outside Medical Records [[id number]] Prescriptions as of 03/24/2024 - metFORMIN (GLUCOPHAGE) 500 mg tablet Take 1 tablet every day by oral route for 90 days. - ipratropium-albuterol (DUONEB) 0.5 mg-3 mg(2.5 mg base)/3 mL nebu INHALE 3 (THREE) mls BY MOUTH via NEBULIZER FOUR TIMES DAILY - atorvastatin (LIPITOR) 80 mg tablet Take 1 tablet by mouth daily at bedtime. - potassium chloride (K-TAB) 10 mEq tablet Take 1 tablet by mouth every 48 hours. - esomeprazole (NEXIUM) 40 mg capsule Take 40 mg by mouth two times a day. - isosorbide mononitrate ER (IMDUR) 30 mg 24 hr tablet Take 1 tablet by mouth every morning. - aspirin, enteric coated (ASPIRIN, ENTERIC COATED) 81 mg EC tablet in the morning. - amLODIPine (NORVASC) 10 mg tablet Take 10 mg by mouth once daily. - furosemide (LASIX) 40 mg tablet Take 40 mg by mouth once daily. Problem List As Of Date 03/24/2024 Noted Resolved COPD (chronic obstructive pulmonary disease) (H*03/21/2024 Supplemental oxygen dependent [Z99.81] 03/21/2024 CAD (coronary artery disease) [I25.10] 03/21/2024 HTN (hypertension) [I10] 03/21/2024 HLD (hyperlipidemia) [E78.5] 03/21/2024 CHF (congestive heart failure) (HCC) [I50.9] 03/21/2024 GERD (gastroesophageal reflux disease) [K21.9] 03/21/2024 Type 2 diabetes mellitus without complication, *03/21/2024 Encounter Status:Closed by RAEGAN QUINN on 03/24/24 Normal [facility] IF Abon 03-22-2024 Intrinsic factor blocking Ab Qn (S) 1.1 A unit/mL Invalid Interpretation Code 0.0-1.1 [facility] Comment on above: Result Comment: Perf ormed at: [facility] [address] [id number] MD Ahmet Barney Performed By: #### 1 [id number] #### [facility] [address] [place] [address] CBC W Auto Differential pane l (Bld)on 03-21-2024 Basophils (Bld) [#/Vol] 0.09 10*3/uL Normal <0.11 [facility] Comment on above: Order Comment: Speci men Type: BLOOD SPECIMEN Ordering Facility: [facility] Address: [address] [place] [address] Performed By: #### 1 9123-9, HSTNT, 2777-1, 19970-8, 14072-8 #### [facility] CLIA [id number] [address] [place] [address] [place] Basophils/100 WBC (Bld) 0.9 % Normal [facility] Comment on above: Order Comment: Speci men Type: BLOOD SPECIMEN Ordering Facility: [facility] Address: [address] [place] [address] Performed By: #### 1 9123-9, HSTNT, 2777-1, 46352-3, 33781-1 #### [facility] CLIA [id number] [address] [place] [address] [place] Differential cell count method Nom (Bld) Auto Normal [facility] Comment on above: Order Comment: Speci men Type: BLOOD SPECIMEN Ordering Facility: [facility] Address: [address] [place] [address] Performed By: #### 1 9123-9, HSTNT, 2777-1, 56151-9, 40520-6 #### [facility] CLIA [id number] [address] [place] [address] [place] Eosinophils (Bld) [#/Vol] 0.28 10*3/uL Normal <0.46 [facility] Comment on above: Order Comment: Speci men Type: BLOOD SPECIMEN Ordering Facility: [facility] Address: [address] [place] [address] Performed By: #### 1 9123-9, HSTNT, 2777-1, 67209-8, 94264-6 #### [facility] CLIA [id number] [address] [place] [address] [place] Eosinophils/100 WBC (Bld) 2.9 % Normal [facility] Comment on above: Order Comment: Speci men Type: BLOOD SPECIMEN Ordering Facility: [facility] Address: [address] [place] [address] Performed By: #### 1 9123-9, HSTNT, 2777-1, 77988-8, 53367-2 #### [facility] CLIA [id number] [address] [place] [address] [place] Erythrocyte distribution width (RBC) [Ratio] 25.1 % High 11.5-15.0 [facility] Comment on above: Order Comment: Speci men Type: BLOOD SPECIMEN Ordering Facility: [facility] Address: [address] [place] [address] Performed By: #### 1 9123-9, HSTNT, 2777-1, 46235-0, 19438-9 #### [facility] CLIA [id number] [address] [place] [address] [place] Hematocrit (Bld) [Volume fraction] 36.3 % Normal 36.0-46.0 [facility] Comment on above: Order Comment: Speci men Type: BLOOD SPECIMEN Ordering Facility: [facility] Address: [address] [place] [address] Performed By: #### 1 9123-9, HSTNT, 2777-, 99893-5, 88423-6 #### [facility] CLIA [id number] [address] [place] [address] [place] Hemoglobin (Bld) [Mass/Vol] 11.2 g/dL Low 11.5-15.5 [facility] Comment on above: Order Comment: Speci men Type: BLOOD SPECIMEN Ordering Facility: [facility] Address: [address] [place] [address] Performed By: #### 1 9123-9, HSTNT, 2777-, 70854-6, 84362-2 #### [facility] CLIA [id number] [address] [place] [address] [place] Immature granulocytes (Bld) [#/Vol] 0.07 10*3/uL Normal <0.10 [facility] Comment on above: Order Comment: Speci men Type: BLOOD SPECIMEN Ordering Facility: [facility] Address: [address] [place] [address] Performed By: #### 1 9123-9, HSTNT, 2777-, 67391-2, 31817-4 #### [facility] CLIA [id number] [address] [place] [address] [place] Immature granulocytes/100 WBC (Bld) 0.7 % Normal [facility] Comment on above: Order Comment: Speci men Type: BLOOD SPECIMEN Ordering Facility: [facility] Address: [address] [place] [address] Performed By: #### 1 9123-9, HSTNT, 2777-1, 23379-6, 90418-9 #### [facility] CLIA [id number] [address] [place] [address] [place] Lymphocytes (Bld) [#/Vol] 2.49 10*3/uL Normal 1.00-4.00 [facility] Comment on above: Order Comment: Speci men Type: BLOOD SPECIMEN Ordering Facility: [facility] Address: [address] [place] [address] Performed By: #### 1 9123-9, HSTNT, 2777-1, 96459-9, 91964-5 #### [facility] CLIA [id number] [address] [place] [address] [place] Lymphocytes/100 WBC (Bld) 26.2 % Normal [facility] Comment on above: Order Comment: Speci men Type: BLOOD SPECIMEN Ordering Facility: [facility] Address: [address] [place] [address] Performed By: #### 1 9123-9, HSTNT, 2777-1, 76649-6, 74841-8 #### [facility] CLIA [id number] [address] [place] [address] [place] MCH (RBC) [Entitic mass] 23.6 pg Low 26.0-34.0 [facility] Comment on above: Order Comment: Speci men Type: BLOOD SPECIMEN Ordering Facility: [facility] Address: [address] [place] [address] Performed By: #### 1 9123-9, HSTNT, 2777-1, 48666-4, 28543-2 #### [facility] CLIA [id number] [address] [place] [address] [place] MCHC (RBC) [Mass/Vol] 30.9 g/dL Normal 30.5-36.0 [facility] Comment on above: Order Comment: Speci men Type: BLOOD SPECIMEN Ordering Facility: [facility] Address: [address] [place] [address] Performed By: #### 1 9123-9, HSTNT, 277-1, 36053-9, 06933-2 #### [facility] CLIA [id number] [address] [place] [address] [place] MCV (RBC) [Entitic vol] 76.4 fL Low 80.0-100.0 [facility] Comment on above: Order Comment: Speci men Type: BLOOD SPECIMEN Ordering Facility: [facility] Address: [address] [place] [address] Performed By: #### 1 9123-9, HSTNT, 277-, 51512-0, #### [facility] CLIA [id number] [address] [place] [address] [place] Monocytes (Bld) [#/Vol] 0.62 10*3/uL Normal <0.87 [facility] Comment on above: Order Comment: Speci men Type: BLOOD SPECIMEN Ordering Facility: [facility] Address: [address] [place] [address] Performed By: #### 1 9123-9, HSTNT, 277-, 46428-2, #### [facility] CLIA [id number] [address] [place] [address] [place] Monocytes/100 WBC (Bld) 6.5 % Normal [facility] Comment on above: Order Comment: Speci men Type: BLOOD SPECIMEN Ordering Facility: [facility] Address: [address] [place] [address] Performed By: #### 1 9123-9, HSTNT, 277-, 07664-0, #### [facility] CLIA [id number] [address] [place] [address] [place] Neutrophils (Bld) [#/Vol] 5.97 10*3/uL Normal 1.45-7.50 [facility] Comment on above: Order Comment: Speci men Type: BLOOD SPECIMEN Ordering Facility: [facility] Address: [address] [place] [address] Performed By: #### 1 9123-9, HSTNT, 2777-1, 13187-1, 05773-5 #### [facility] CLIA [id number] [address] [place] [address] [place] Neutrophils/100 WBC (Bld) 62.8 % Normal [facility] Comment on above: Order Comment: Speci men Type: BLOOD SPECIMEN Ordering Facility: [facility] Address: [address] [place] [address] Performed By: #### 1 9123-9, HSTNT, 277-, 82931-5, 98202-9 #### [facility] CLIA [id number] [address] [place] [address] [place] Nucleated RBC (Bld) [#/Vol] 10*3/uL Normal <0.01 [facility] Comment on above: Order Comment: Speci men Type: BLOOD SPECIMEN Ordering Facility: [facility] Address: [address] [place] [address] Performed By: #### 1 9123-9, HSTNT, 2776-, 76113-0, 40514-8 #### [facility] CLIA [id number] [address] [place] [address] [place] Nucleated RBC/100 WBC (Bld) [Ratio] 0.0 /100 WBC Normal [facility] Comment on above: Order Comment: Speci men Type: BLOOD SPECIMEN Ordering Facility: [facility] Address: [address] [place] [address] Performed By: #### 1 9123-9, HSTNT, 2776-, 91260-2, 74521-5 #### [facility] CLIA [id number] [address] [place] [address] [place] Platelet mean volume (Bld) [Entitic vol] 9.7 fL Normal 9.0-12.7 [facility] Comment on above: Order Comment: Speci men Type: BLOOD SPECIMEN Ordering Facility: [facility] Address: [address] [place] [address] Performed By: #### 1 9123-9, HSTNT, 2777-1, 76286-0, 65830-5 #### [facility] CLIA [id number] [address] [place] [address] [place] Platelets (Bld) [#/Vol] 443 10*3/uL High 150-400 [facility] Comment on above: Order Comment: Speci men Type: BLOOD SPECIMEN Ordering Facility: [facility] Address: [address] [place] [address] Performed By: #### 1 9123-9, HSTNT, 2777-1, 07080-0, 99190-1 #### [facility] CLIA [id number] [address] [place] [address] [place] RBC (Bld) [#/Vol] 4.75 10*6/uL Normal 3.90-5.20 [facility] Comment on above: Order Comment: Speci men Type: BLOOD SPECIMEN Ordering Facility: [facility] Address: [address] [place] [address] Performed By: #### 1 9123-9, HSTNT, 2777-1, 51707-5, 62724-3 #### [facility] CLIA [id number] [address] [place] [address] [place] WBC (Bld) [#/Vol] 9.52 10*3/uL Normal 3.70-11.00 [facility] Comment on above: Order Comment: Speci men Type: BLOOD SPECIMEN Ordering Facility: [facility] Address: [address] [place] [address] Performed By: #### 1 9123-9, HSTNT, 2777-1, 48466-8, 29048-7 #### [facility] CLIA [id number] [address] [place] [address] [place] CONFIRM BLOOD TYPEon 024 ABO A Normal [facility] Comment on above: Order Comment: Speci men Type: ARTERIAL BLOOD SPECIMEN Ordering Facility: [facility] Address: [address] [place] [address] Performed By: #### A LLBG #### [facility] CLIA [id number] [address] [place] [address] [place] Rh Nom (Bld) Positive Normal [facility] Comment on above: Order Comment: Speci men Type: ARTERIAL BLOOD SPECIMEN Ordering Facility: [facility] Address: [address] [place] [address] Performed By: #### A LLBG #### [facility] CLIA [id number] [address] [place] [address] [place] Comprehensive metabolic 2000 panelon 03-21-2024 Albumin [Mass/Vol] 4.3 g/dL Normal 3.9-4.9 [facility] Comment on above: Order Comment: Speci men Type: BLOOD SPECIMEN Ordering Facility: [facility] Address: [address] [place] [address] Performed By: #### 1 9123-9, HSTNT, 2777-1, 66186-6, 62515-3 #### [facility] CLIA [id number] [address] [place] [address] [place] ALP [Catalytic activity/Vol] 128 U/L High 34-123 [facility] Comment on above: Order Comment: Speci men Type: BLOOD SPECIMEN Ordering Facility: [facility] Address: [address] [place] [address] Performed By: #### 1 9123-9, HSTNT, 2777-1, 74189-5, 29045-4 #### [facility] CLIA [id number] [address] [id number] [address] [place] ALT [Catalytic activity/Vol] 14 U/L Normal 7-38 [facility] Comment on above: Order Comment: Speci men Type: BLOOD SPECIMEN Ordering Facility: [facility] Address: [address] [place] [address] Performed By: #### 1 9123-9, HSTNT, 2777-1, 05446-9, 16043-6 #### [facility] CLIA [id number] [address] [place] [address] [place] Anion gap [Moles/Vol] 11 mmol/L Normal 8-15 [facility] Comment on above: Order Comment: Speci men Type: BLOOD SPECIMEN Ordering Facility: [facility] Address: [address] [place] [address] Performed By: #### 1 9123-9, HSTNT, 2777-1, 72304-9, 88651-1 #### [facility] CLIA [id number] [address] [place] [address] [place] AST [Catalytic activity/Vol] 11 U/L Low 13-35 [facility] Comment on above: Order Comment: Speci men Type: BLOOD SPECIMEN Ordering Facility: [facility] Address: [address] [place] [address] Performed By: #### 1 9123-9, HSTNT, 2777-1, 51559-0, 75463-7 #### [facility] CLIA [id number] [address] [place] [address] [place] Bilirubin [Mass/Vol] 0.2 mg/dL Normal 0.2-1.3 [facility] Comment on above: Order Comment: Speci men Type: BLOOD SPECIMEN Ordering Facility: [facility] Address: [address] [place] [address] Performed By: #### 1 9123-9, HSTNT, 2777-1, 19603-7, 32279-6 #### [facility] CLIA [id number] [address] [place] [address] [place] Calcium [Mass/Vol] 9.3 mg/dL Normal 8.5-10.2 [facility] Comment on above: Order Comment: Speci men Type: BLOOD SPECIMEN Ordering Facility: [facility] Address: [address] [place] [address] Performed By: #### 1 9123-9, HSTNT, 2777-1, 28046-1, 51619-3 #### [facility] CLIA [id number] [address] [place] [address] [place] Chloride [Moles/Vol] 102 mmol/L Normal 98-107 [facility] Comment on above: Order Comment: Speci men Type: BLOOD SPECIMEN Ordering Facility: [facility] Address: [address] [place] [address] Performed By: #### 1 9123-9, HSTNT, 2777-1, 03644-9, 89478-2 #### [facility] CLIA [id number] [address] [place] [place] [address] [place] CO2 [Moles/Vol] 25 mmol/L Normal 22-30 [facility] Comment on above: Order Comment: Speci men Type: BLOOD SPECIMEN Ordering Facility: [facility] Address: [address] [place] [address] Performed By: #### 1 9123-9, HSTNT, 2777-1, 16551-1, 85013-9 #### [facility] CLIA [id number] [address] [place] [place] [address] [place] Creatinine [Mass/Vol] 0.56 mg/dL Low 0.58-0.96 [facility] Comment on above: Order Comment: Speci men Type: BLOOD SPECIMEN Ordering Facility: [facility] Address: [address] [place] [address] Performed By: #### 1 9123-9, HSTNT, 2777-1, 28265-3, 63489-8 #### [facility] CLIA [id number] [address] [place] [place] [address] [place] Creatinine and Glomerular filtration rate.predicted panel (S/P/Bld) 99 mL/min/1.73m??? Normal >=60 [facility] Comment on above: Order Comment: Peter linn Type: BLOOD SPECIMEN Ordering Facility: [facility] Address: [address] [place] [address] Result Comment: Kayli mated Glomerular Filtration Rate (eGFR) is calculated using the 2020 CKD-EPI creatinine equation. This equation utilizes serum creatinine, sex, and age as parameters. The creatinine assay has traceable calibration to isotope dilution-mass spectrometry. Refer to KDIGO guidelines for clinical interpretation. In patients with unstable renal function, e.g. those with acute kidney injury, the eGFR may not accurately reflect actual GFR. Performed By: #### 1 9123-9, HSTNT, 2777-1, 40112-6, 13405-0 #### [facility] CLIA [id number] [address] [place] [place] [address] [place] Glucose [Mass/Vol] 252 mg/dL High 74-99 [facility] Comment on above: Order Comment: Peter linn Type: BLOOD SPECIMEN Ordering Facility: [facility] Address: [address] [place] [address] Result Comment: The [place] Diabetes Association (ADA) provides guidance for cutoff values for fasting glucose and random glucose. The ADA defines fasting as no caloric intake for at least 8 hours. Fasting plasma glucose results between 100 to 125 mg/dL indicate increased risk for diabetes (prediabetes). Fasting plasma glucose results greater than or equal to 126 mg/dL meet the criteria for diagnosis of diabetes. In the absence of unequivocal hyperglycemia, results should be confirmed by repeat testing. In a patient with classic symptoms of hyperglycemia or hyperglycemic crisis, random plasma glucose results greater than or equal to 200 mg/dL meet the criteria for diagnosis of diabetes. Reference: Standards of Medical Care in Diabetes 2016, [place] [employer] Association. Diabetes Care. 2016.39(Suppl 1). Performed By: #### 1 9123-9, HSTNT, 2777-1, 49351-3, 25168-2 #### [facility] CLIA [id number] [address] [place] [address] [place] Potassium [Moles/Vol] 4.5 mmol/L Normal 3.7-5.1 [facility] Comment on above: Order Comment: Speci men Type: BLOOD SPECIMEN Ordering Facility: [facility] Address: [address] [place] [address] Performed By: #### 1 9123-9, HSTNT, 2777-1, 08717-1, 04952-7 #### [facility] CLIA [id number] [address] [place] [address] [place] Protein [Mass/Vol] 6.7 g/dL Normal 6.3-8.0 [facility] Comment on above: Order Comment: Speci men Type: BLOOD SPECIMEN Ordering Facility: [facility] Address: [address] [place] [address] Performed By: #### 1 9123-9, HSTNT, 2777-1, 25065-7, 52493-2 #### [facility] CLIA [id number] [address] [place] [address] [place] Sodium [Moles/Vol] 138 mmol/L Normal 136-144 [facility] Comment on above: Order Comment: Speci men Type: BLOOD SPECIMEN Ordering Facility: [facility] Address: [address] [place] [address] Performed By: #### 1 9123-9, HSTNT, 2777-1, 91843-3, 16924-1 #### [facility] CLIA [id number] [address] [place] [address] [place] Urea nitrogen [Mass/Vol] 10 mg/dL Normal 7-21 [facility] Comment on above: Order Comment: Speci men Type: BLOOD SPECIMEN Ordering Facility: [facility] Address: [address] [place] [address] Performed By: #### 1 9123-9, HSTNT, 2777-1, 22416-2, 71471-4 #### [facility] CLIA [id number] [address] [place] [address] [place] ECG COMPLETEon 03-21-2024 ECG COMPLETE Ventricular Rate : 6 6 BPM Atrial Rate : 66 BPM P-R Interval : 262 ms QRS Duration : 172 ms Q-T Interval : 484 ms QTC Calculation(Bazett) : 507 ms Calculated P Linwood : 40 degrees Calculated R Linwood : -13 degrees Calculated T Linwood : 103 degrees SINUS RHYTHM WITH 1ST DEGREE AV BLOCK COMPLETE LEFT BUNDLE BRANCH BLOCK ABNORMAL ECG Confirmed by MD GRUBBS TAMANNA ([id number]) on 04/10/2024 7:34:19 PM NAME : JOHANNA MACDONALD PID : [id number] : 1955 Gender : Female Race : ORD : [id number] Procedure Date : Mar 21 2024 13:43:31 Edit Date : Apr 10 2024 19:34:20 Diagnosis: SINUS RHYTHM WITH 1ST DEGREE AV BLOCK COMPLETE LEFT BUNDLE BRANCH BLOCK ABNORMAL ECG Confirmed by MD GRUBBS TAMANNA ([id number]) on 04/10/2024 7:34:19 PM Test Reason : Location : 119 : A17 A17 Overread By : MD GRUBBS TAMANNA Edited By : MD GRUBBS TAMANNA Referred By : MARÍA GUZMAN Acquired by : DIANA SALMON [facility] HISTORY PHYSICALon HISTORY PHYSICAL HNO ID: [id number] Author: TAWANA ROBERTSON PA-C Service: ? Author Type: Physician Crew Supervisor Type: H&P Filed: 03/27/2024 10:31 Note Text: [facility] HISTORY AND PHYSICAL EXAMINATION SERVICE DATE: 03/21/2024 SERVICE TIME: 12:53 PM PRIMARY CARE PHYSICIAN: Issac Conway MD Assessment Patient has the following medical conditions which may affect julio-operative course: COPD (chronic obstructive pulmonary disease) (HCC) -stable on Duoneb, wears 2L of home O2 most of the time -denies new or worsening cough or SOB -Follows with pulmonology Dr. Linda Martinez last visit 2-3 months ago, requested records Supplemental oxygen dependent -wears 2L of home O2 most of the time -SpO2 96% on room air -Follows with pulmonology Dr. Linda Martinez last visit 2-3 months ago CAD (coronary artery disease) -s/p PCI 2017, cardiac cath 02/2023 nonobstructive CAD -stable on aspirin and Imdur -denies new or worsening cardiac symptoms, EKG Pending -Follows with cardiology Dr. Ac Gomes last visit 07/27/23 HTN (hypertension) -stable on amlodipine and Lasix -BP in office 144/51 -denies new or worsening cardiac symptoms, EKG Pending -Follows with cardiology Dr. Ac Gomes last visit 07/27/23 HLD (hyperlipidemia) -stable on rx CHF (congestive heart failure) ([facility]) -per cardiology note recent echo EF 40%, requested records of recent echo -on Lasix -denies new or worsening cardiac symptoms, EKG Pending -Follows with cardiology Dr. Ac Gomes last visit 07/27/23 GERD (gastroesophageal reflux disease) -stable on PPI Type 2 diabetes mellitus without complication, without long-term current use of insulin (HCC) -stable on metformin -labs pending Aguilar Activity Status Index: METS: Take care of self; that is eating, dressing, bathing, using the toilet (2.75 METs) DASI Score: 2.75 Patient denies any chest pain or undue shortness of breath with the above physical activity. Clinical Frailty Scale: 4. Apparently vulnerable STOP-Bang Score: Has or is being treated for high blood pressure Patient over 50 years old STOP-Bang Score: 2 [id number] Score: CHF history: Yes Hypertension history: Yes Diabetes history: Yes [id number] Score: ARISCAT Score: Age: 51-80 Preoperative SpO2: >=96% Respiratory infection in the last month: No Preoperative anemia: Yes Surgical incision: upper abdominal Duration of surgery: >3 hrs Emergency procedure: No ARISCAT Score: 52 ANESTHESIA FINDINGS: Intubation History: No history of difficult intubation Significant Anesthesia Considerations: none Airway History: No history of difficult airway I - PHYSICAL EVALUATION AIRWAY Patient intubated: No. Mallampati: I. TM distance: >3 FB. Neck ROM: limited extension. Upper lip bite test: unable. DENTAL Dentures, upper: complete. Dentures, lower: complete. II - ANESTHESIA PLAN Anesthetic plan additional comments: *PACC/TCI - anesthesia choice. Beta Jordyn Monitoring Plan Post Procedure Analgesic Plan Prepared for Surgery: optimally prepared for surgery, pending [see comment]. Cardiology and Pulmonology records reviewed. EKG with LBBB, reviewed CE previous EKG's with LBBB. CONSULTS: The following consults have been initiated at this time: cardiology and pulmonary. Planned Anesthetic: anesthesia choice Requested cardiology and pulmonology records for chart completeness. The Following Tests/Procedures Have Been Initiated: Orders Placed This Encounter Hemoglobin A1C Standing Status: Future Number of Occurrences: 1 Standing Expiration Date: 06/20/2024 Confirm Blood Type Standing Status: Future Number of Occurrences: 1 Standing Expiration Date: 06/20/2024 Order Specific Question: Did Blood Bank direct you to place this order: Answer: No - Presurgical Workflow REASON FOR VISIT: Johanna Macdonald is a 69 year old female who is scheduled for Procedure(s): HERNIORRHAPHY VENTRAL RECURRENT REDUCIBLE GREATER THAN 10cm (N/A) at the request of Dr. María Guzman for consultation. My final recommendation will be communicated back to the requesting physician by way of shared medical record or letter. Subjective The patient has the following: ACTIVE PROBLEM LIST Copd (Chronic Obstructive Pulmonary Disease) (Hcc) Supplemental Oxygen Dependent Cad (Coronary Artery Disease) Htn (Hypertension) Hld (Hyperlipidemia) Chf (Congestive Heart Failure) (Hcc) Gerd (Gastroesophageal Reflux Disease) Type 2 Diabetes Mellitus Without Complication, Without Long-Term Current Use of Insulin (Hcc) COVID-19 Immunization Status Overdue - Covid-19 Vaccine ( season) Never done No completion, postpone, frequency change, or communication history exists for this topic. CHIEF COMPLAINT: incisional hernia HPI: 69 year old year old female scheduled for HERNIORRHAPHY VENTRAL RECURRENT REDU (more content not included)... Normal [facility] HbA1c (Bld)on 03-21-2024 Average glucose Estimated from glycated hemoglobin (Bld) [Mass/Vol] 151 mg/dL Normal [facility] Comment on above: Order Comment: Speci men Type: BLOOD SPECIMEN Ordering Facility: [facility] Address: [address] [place] [address] Result Comment: eAG: (Estimated average glucose) is a calculated value from HgbA1c and is cash application representative of the average blood glucose level in the last 2-3 month period. Performed By: #### 1 9123-9, HSTNT, 2777-1, 69500-9, 70921-7 #### [facility] CLIA [id number] [address] [place], [place] [id number] [place] HbA1c (Bld) [Mass fraction] 6.9 % High 4.3-5.6 [facility] Comment on above: Order Comment: Speci men Type: BLOOD SPECIMEN Ordering Facility: [facility] Address: [address] [place] [address] Result Comment: [place] Diabetes Association guidelines indicate that patients with HgbA1c in the range 5.7-6.4% are at increased risk for development of diabetes, and intervention by lifestyle modification may be beneficial. HgbA1c greater or equal to 6.5% is considered diagnostic of diabetes. Performed By: #### 1 9123-9, HSTNT, 2777-1, 53976-5, 32210-6 #### [facility] CLIA [id number] [address] [place] [place] [address] [place] Lab Miscellaneous-LCon 03-21 Lab Miscellaneous COMMENT Invalid Interpretation Code [facility] Comment on above: Result Comment: Test Ordered: [id number] Antiparietal Cell Antibody Antiparietal Cell Antibody 1.7 Units CB Reference Range: 0.0-20.0 Negative 0.0 - 20.0 Equivocal 20.1 - 24.9 Positive >24.9 Parietal Cell Antibodies are found in 90% of patients with pernicious anemia and 30% of first degree relatives with pernicious anemia. Performed at: [facility] [address] [place], [place] [id number] PhD Toney Slade Performed By: #### 1 [id number] #### [facility] [address] [place] [address] PT panel Coag (PPP)on 2023 INR Coag (PPP) [Relative time] 1.0 {INR} Normal 0.9-1.3 [facility] Comment on above: Order Comment: Peter linn Type: ARTERIAL BLOOD SPECIMEN Ordering Facility: [facility] Address: [address] [place] [address] Result Comment: Aline min K Antagonist (VKA) Therapeutic Range: INR 2 to 3 (Target INR of 2.5) Note: For patients treated with VKA drugs, such as warfarin, the [place] [employer] 2012 Guideline recommends a therapeutic INR range of 2 to 3 (target INR of 2.5). This recommendation includes high-risk patients with antiphospholipid syndrome with previous arterial or venous thromboembolism, current-generation mechanical or bioprosthetic aortic heart valve replacement. Note: Patients with mechanical aortic valve replacement and additional risk factors for thromboembolic events (atrial fibrillation, previous thromboembolism, LV dysfunction, hypercoagulable conditions) or an older generation mechanical AVR (i.e., ball in-Cage) or any mechanical MVR should have a INR therapeutic range of 2.5 to 3.5 (target INR of 3). Joyce GH, et al. Chest 2012, 141:7S-47S Margot RA, et al. [facility] 2017, 70: 252-289 Performed By: #### A LLBG #### [facility] CLIA [id number] [address] [place] [place] [address] [place] PT Coag (PPP) [Time] 10.7 s Normal 9.7-13.0 [facility] Comment on above: Order Comment: Peter linn Type: ARTERIAL BLOOD SPECIMEN Ordering Facility: [facility] Address: [address] [place] [address] Performed By: #### A LLBG #### [facility] CLIA [id number] [address] [place] [place] [address] [place] TYPE AND SCREEN,30 DAYon ABO A Normal [facility] Comment on above: Order Comment: Peter linn Type: BLOOD SPECIMENOrdering Facility: [facility] Address: [address] [place] [address] Performed By: #### T SCR30 ####[facility] BANKCLIA [id number] [place] [address] [place] HISTORICAL AB SCR STATUS Negative Normal [facility] Comment on above: Order Comment: Speci men Type: BLOOD SPECIMENOrdering Facility: [facility] Address: [address] [place] [address] Performed By: #### T SCR30 ####[facility] BLO[facility] BANKCLIA [id number] [place] [address] [place] Rh Nom (Bld) Positive Normal [facility] Comment on above: Order Comment: Speci men Type: BLOOD SPECIMENOrdering Facility: [facility] Address: [address] [place] [address] Performed By: #### T SCR30 ####[facility] BLO[facility] BANKCLIA [id number] [place] [address] [place] aPTT PPPon 03-21-2024 aPTT Coag (PPP) [Time] 26.8 s Normal 23.0-32.4 [facility] Comment on above: Order Comment: Speci men Type: ARTERIAL BLOOD SPECIMEN Ordering Facility: [facility] Address: [address] [place] [address] Performed By: #### A LLBG #### [facility] CLIA [id number] [address] [place] [place] [address] [place] CBC w/ Auto Diffon 4 Acanthocytes LM Ql (Bld) PRESENT Invalid Interpretation Code [facility] Comment on above: Performed By: #### 2 [id number] #### [facility] [address] [place] [address] Basophils/100 WBC (Bld) 1.1 % Normal 0.0-2.0 [facility] Comment on above: Performed By: #### 2 [id number] #### [facility] [address] [place] [address] Basophils/Leukocyte s Auto (Bld) [Pure # fraction] 0.1 E9/L Normal 0.0-0.2 [facility] Comment on above: Performed By: #### 2 183781 #### [facility] [address] [place] [address] Elliptocytes LM Ql (Bld) PRESENT Invalid Interpretation Code [facility] Comment on above: Performed By: #### 2 [id number] #### [facility] [address] [place] [address] Eosinophils (Bld) [#/Vol] 0.3 E9/L Normal 0.0-0.5 [facility] Comment on above: Performed By: #### 2 659947 #### [facility] [address] [place] [address] Eosinophils/100 WBC (Bld) 3.4 % Normal 0.0-8.0 [facility] Comment on above: Performed By: #### 2 986908 #### [facility] [address] [place] [address] Erythrocyte distribution width (RBC) [Ratio] 27.5 % High 10.9-14.2 [facility] Comment on above: Performed By: #### 2 956254 #### [facility] [address] [place] [address] Hematocrit (Bld) [Volume fraction] 33.9 % Low 34.0-46.0 [facility] Comment on above: Performed By: #### 2 582086 #### [facility] [address] [place] [address] Hemoglobin (Bld) [Mass/Vol] 11.2 g/dL Low 12.0-16.0 [facility] Comment on above: Performed By: #### 2 717786 #### [facility] [address] [place] [address] Hypochromia Auto Ql (Bld) PRESENT Invalid Interpretation Code [facility] Comment on above: Performed By: #### 2 101900 #### [facility] [address] [place] [address] Lymphocytes (Bld) [#/Vol] 1.8 E9/L Normal 1.0-4.0 [facility] Comment on above: Performed By: #### 2 591594 #### [facility] [address] [place] [address] Lymphocytes/100 WBC (Bld) 20.3 % Normal 14.0-50.0 [facility] Comment on above: Performed By: #### 2 414335 #### [facility] [address] [place] [address] MCH (RBC) [Entitic mass] 23.7 pg Low 27.0-34.0 [facility] Comment on above: Performed By: #### 2 671553 #### [facility] [address] [place] [address] MCHC (RBC) [Mass/Vol] 33.0 g/dL Normal 31.4-36.0 [facility] Comment on above: Performed By: #### 2 661758 #### [facility] [address] [place] [address] MCV (RBC) [Entitic vol] 71.9 fL Low 80.0-100.0 [facility] Comment on above: Performed By: #### 2 617687 #### [facility] [address] [place] [address] Microcytes Ql (Bld) PRESENT Invalid Interpretation Code [facility] Comment on above: Performed By: #### 2 478270 #### [facility] [address] [place] [address] Monocytes (Bld) [#/Vol] 0.7 E9/L Normal 0.2-1.0 [facility] Comment on above: Performed By: #### 2 889575 #### [facility] [address] [place] [address] Neutrophils (Bld) [#/Vol] 5.9 E9/L Normal 2.0-7.5 [facility] Comment on above: Performed By: #### 2 740418 #### [facility] [address] [place] [address] Neutrophils/100 WBC (Bld) 67.2 % Normal 36.0-75.0 [facility] Comment on above: Performed By: #### 2 562831 #### [facility] [address] [place] [address] Platelet 453.0 E9/L Normal 150.0-500.0 [facility] Comment on above: Performed By: #### 2 616560 #### [facility] [address] [place] [address] Platelet mean volume (Bld) [Entitic vol] 7.3 fL Normal 6.4-10.8 [facility] Comment on above: Performed By: #### 2 406040 #### [facility] [address] [place] [address] Poikilocytosis Auto Ql (Bld) PRESENT Invalid Interpretation Code [facility] Comment on above: Performed By: #### 2 112319 #### [facility] [address] [place] [address] RBC (Bld) [#/Vol] 4.7 E12/L Normal 4.3-5.9 [facility] Comment on above: Performed By: #### 2 881326 #### [facility] [address] [place] [address] RBC size Nom (Bld) SEE MORPHOLOGY Invalid Interpretation Code [facility] Comment on above: Performed By: #### 2 934699 #### [facility] [address] [place] [address] WBC corrected for nucl RBC Auto (Bld) [#/Vol] 8.8 E9/L Normal 4.0-11.0 [facility] Comment on above: Performed By: #### 2 615110 #### [facility] [address] [place] [address] CHEMISTRYOrdered By: SYSTEM SYSTEM on 03-20-2024 Albumin [Mass/Vol] 4.4 g/dL Normal 3.3 - 5.0 gm/dL R emisol Chem Albumin/Globulin [Mass ratio] 1.7 {ratio} Normal 1.1 - 2.2 Remisol Chem ALP [Catalytic activity/Vol] 111 [iU]/d High 21 - 98 Int._Unit/L Remisol Chem ALT No additional P-5'-P [Catalytic activity/Vol] 12 [iU]/d Normal 6 - 46 Int._Unit/L Remisol Chem Anion gap [Moles/Vol] 13 mmol/L Normal 6 - 16 mEq/L Remisol Chem AST [Catalytic activity/Vol] 10 [iU]/d Normal 5 - 43 Int._Unit/L Rem[facility] Chem Bilirubin [Mass/Vol] 0.3 mg/dL Normal 0.0 - 1.1 mg/dL Remisol Chem Calcium [Mass/Vol] 9.4 mg/dL Normal 8.9 - 11.1 mg/dL Rem[facility] Chem Chloride [Moles/Vol] 102 mmol/L Normal 101 - 111 mmol/L Remisol Chem CO2 [Moles/Vol] 24 mmol/L Normal 21 - 31 mmol/L Remis ol Chem Cobalamin (Vitamin B12) [Mass/Vol] 251 pg/mL Normal 50 - 1500 pg/mL Remisol Chem Creatinine [Mass/Vol] 0.7 mg/dL Normal 0.5 - 1.3 mg/dL Rem[facility] Chem eGFR 93 mL/min/1.73 m2 Normal >=59mL/min /1.73 m2 [facility] Ferritin [Mass/Vol] 60 ng/mL Normal 11 - 307 ng/mL R emisol Chem Folate [Mass/Vol] 14.7 ng/mL Normal >=6.7ng/mL Rem[facility] Chem Globulin (S) [Mass/Vol] 2.6 g/dL Normal 1.4 - 4.0 gm/dL Rem[facility] Chem Glucose [Mass/Vol] 279 mg/dL High 55 - 199 mg/dL Re misol Chem Iron [Mass/Vol] 62 ug/dL Normal 35 - 153 mcg/dL Brad ana cristina Chem Iron binding capacity [Mass/Vol] 370 ug/dL Normal 250 - 400 mcg/dL Remisol Natalie m Iron saturation [Mass fraction] 17 % Low 20 - 50 % Remisol Chem LDH 104 [iU]/d Normal 93 - 218 Int._Unit/L Remisol Chem Potassium [Moles/Vol] 3.9 mmol/L Normal 3.5 - 5.3 mmol/L Remisol Chem Protein [Mass/Vol] 7.0 g/dL Normal 6.0 - 7.8 gm/dL R emisol Chem Sodium [Moles/Vol] 135 mmol/L Normal 135 - 145 mmol/L Remisol Chem Transferrin [Mass/Vol] 264 mg/dL Normal 200 - 370 mg/dL Rem[facility] Chem Urea nitrogen [Mass/Vol] 9 mg/dL Normal 5 - 21 mg/dL Rem[facility] Chem Urea nitrogen/Creatinine [Mass ratio] 13 mg/mg Normal 10 - 20 Remisol Chem CMPon 03-20-2024 Albumin [Mass/Vol] 4.4 g/dL Normal 3.3-5.0 [facility] Comment on above: Performed By: #### 2 [id number] #### [facility] [address] [place] [address] Albumin/Globulin (S) [Mass conc ratio] 1.7 Normal 1.1-2.2 [facility] Comment on above: Performed By: #### 2 181964 #### [facility] [address] [place] [address] ALP [Catalytic activity/Vol] 111 Int._Unit/L High 21-98 [facility] Comment on above: Performed By: #### 2 [id number] #### [facility] [address] [place] [address] ALT No additional P-5'-P [Catalytic activity/Vol] 12 Int._Unit/L Normal 6-46 [facility] Comment on above: Performed By: #### 2 853472 #### [facility] [address] [place] [address] Anion gap [Moles/Vol] 13 mmol/L Normal 6-16 [facility] Comment on above: Performed By: #### 2 082766 #### [facility] [address] [place] [address] AST [Catalytic activity/Vol] 10 Int._Unit/L Normal 5-43 [facility] Comment on above: Performed By: #### 2 480949 #### [facility] [address] [place] [address] Bilirubin [Mass/Vol] 0.3 mg/dL Normal 0.0-1.1 [facility] Comment on above: Performed By: #### 2 709268 #### [facility] [facility] [address] [place] [address] Calcium [Mass/Vol] 9.4 mg/dL Normal 8.9-11.1 [facility] Comment on above: Performed By: #### 2 [id number] #### [facility] [address] [place] [address] Chloride [Moles/Vol] 102 mmol/L Normal 101-111 [facility] Comment on above: Performed By: #### 2 [id number] #### [facility] [address] [place] [address] CO2 [Moles/Vol] 24 mmol/L Normal 21-31 [facility] Comment on above: Performed By: #### 2 [id number] #### [facility] [address] [place] [address] Creatinine [Mass/Vol] 0.7 mg/dL Normal 0.5-1.3 [facility] Comment on above: Performed By: #### 2 [id number] #### [facility] [address] [place] [address] Globulin (S) [Mass/Vol] 2.6 g/dL Normal 1.4-4.0 [facility] Comment on above: Performed By: #### 2 [id number] #### [facility] [address] [place] [address] Glucose [Mass/Vol] 279 mg/dL High 55-199 [facility] Comment on above: Performed By: #### 2 [id number] #### [facility] [address] [place] [address] Potassium [Moles/Vol] 3.9 mmol/L Normal 3.5-5.3 [facility] Comment on above: Performed By: #### 2 [id number] #### [facility] [address] [place] [address] Protein [Mass/Vol] 7.0 g/dL Normal 6.0-7.8 [facility] Comment on above: Performed By: #### 2 [id number] #### [facility] [address] [place] [address] Sodium [Moles/Vol] 135 mmol/L Normal 135-145 [facility] Comment on above: Performed By: #### 2 [id number] #### [facility] [address] [place] [address] Urea nitrogen [Mass/Vol] 9 mg/dL Normal 5-21 [facility] Comment on above: Performed By: #### 2 [id number] #### [facility] [address] [place] [address] Urea nitrogen/Creatinine [Mass ratio] 13 No Units Normal 10-20 [facility] Comment on above: Performed By: #### 2 [id number] #### [facility] [address] [place] [address] Ferritinon 03-20-2024 Ferritin [Mass/Vol] 60 ng/mL Normal 11-307 [facility] Comment on above: Performed By: #### 2 [id number] #### [facility] [address] [place] [address] Folateon 03-20-2024 Folate [Mass/Vol] 14.7 ng/mL Normal >=6.7 [facility] Comment on above: Performed By: #### 2 [id number] #### [facility] [address] [place] [address] HEMATOLOGYOrdered By: SYSTEM SYSTEM on 03-20-2024 Acanthocytes LM Ql (Bld) PRESENT *NA* (03/20/24 1:13 PM) Invalid Interpretation Code Remisol Heme Basophils/100 WBC (Bld) 1.1 % Normal 0.0 - 2.0 % Remisol Heme Basophils/Leukocyte s Auto (Bld) [Pure # fraction] 0.1 E9/L Normal 0.0 - 0.2 E9/L Remisol Heme Elliptocytes LM Ql (Bld) PRESENT *NA* (03/20/24 1:13 PM) Invalid Interpretation Code Remisol Heme Eosinophils (Bld) [#/Vol] 0.3 E9/L Normal 0.0 - 0.5 E9/L Remisol Heme Eosinophils/100 WBC (Bld) 3.4 % Normal 0.0 - 8.0 % Remisol Heme Erythrocyte distribution width (RBC) [Ratio] 27.5 % High 10.9 - 14.2 % Remisol Heme Hematocrit (Bld) [Volume fraction] 33.9 % Low 34.0 - 46.0 % Remisol Heme Hemoglobin (Bld) [Mass/Vol] 11.2 g/dL Low 12.0 - 16.0 gm/dL Remisol Heme Hypochromia Auto Ql (Bld) PRESENT *NA* (03/20/24 1:13 PM) Invalid Interpretation Code Remisol Heme Lymphocytes (Bld) [#/Vol] 1.8 E9/L Normal 1.0 - 4.0 E9/L Remisol Heme Lymphocytes/100 WBC (Bld) 20.3 % Normal 14.0 - 50.0 % Remisol Heme MCH (RBC) [Entitic mass] 23.7 pg Low 27.0 - 34.0 pg Remisol Heme MCHC (RBC) [Mass/Vol] 33.0 g/dL Normal 31.4 - 36.0 gm/dL Remisol Heme MCV (RBC) [Entitic vol] 71.9 fL Low 80.0 - 100.0 fL Remisol Heme Microcytes Ql (Bld) PRESENT *NA* (03/20/24 1:13 PM) Invalid Interpretation Code Remisol Heme Monocytes (Bld) [#/Vol] 0.7 E9/L Normal 0.2 - 1.0 E9/L Remisol Heme Monocytes/100 WBC (Bld) 8.0 % Normal 4.0 - 14.0 % Remisol Heme Neutrophils (Bld) [#/Vol] 5.9 E9/L Normal 2.0 - 7.5 E9/L Remisol Heme Neutrophils/100 WBC (Bld) 67.2 % Normal 36.0 - 75.0 % Remisol Heme Platelet 453.0 E9/L Normal 150.0 - 500.0 E9/L Remisol Heme Platelet mean volume (Bld) [Entitic vol] 7.3 fL Normal 6.4 - 10.8 fL Remisol Heme Poikilocytosis Auto Ql (Bld) PRESENT *NA* (03/20/24 1:13 PM) Invalid Interpretation Code Remisol Heme RBC (Bld) [#/Vol] 4.7 E12/L Normal 4.3 - 5.9 E12/L Re misol Heme RBC size Nom (Bld) SEE MORPHOLOGY *NA* (03/20/24 1:13 PM) Invalid Interpretation Code Remisol Heme Reticulocytes/100 RBC (Bld) 1.4 % Normal 0.5 - 2.2 % Remisol Heme WBC corrected for nucl RBC Auto (Bld) [#/Vol] 8.8 E9/L Normal 4.0 - 11.0 E9/L Remisol Heme Ironon 03-20-2024 Iron [Mass/Vol] 62 microgram/dL Normal 35-153 [facility] Comment on above: Performed By: #### 2 [id number] #### [facility] [address] [place] [address] Iron Saturationon 03-20-2024 Iron binding capacity [Mass/Vol] 370 microgram/dL Normal 250-400 [facility] Comment on above: Performed By: #### 2 [id number] #### [facility] [address] [place] [address] Iron saturation [Mass fraction] 17 % Low 20-50 [facility] Comment on above: Performed By: #### 2 [id number] #### [facility] [address] [place] [address] LDHon 03-20-2024 LDH 104 Int._Unit/L Normal 93-218 [facility] Comment on above: Performed By: #### 2 [id number] #### [facility] [address] [place] [address] Lab Miscellaneous-LCon 03-20 Test Code 802611 Invalid Interpretation Code [facility] Comment on above: Performed By: #### 1 [id number] #### [facility] [address] [place] [address] Test Name APCA Invalid Interpretation Code [facility] Comment on above: Performed By: #### 1 [id number] #### [facility] [address] [place] [address] Reference Laboratory Testing Ordered By: Almaz Sandoval on 03-20-2024 Test Code 771522 1 Invalid Interpretation Code [facility] Test Name APCA Invalid Interpretation Code [facility] Retic Counton 03-20-2024 Reticulocytes/100 RBC (Bld) 1.4 % Normal 0.5-2.2 [facility] Comment on above: Performed By: #### 2 [id number] #### [facility] [address] [place] [address] Transferrinon 03-20-2024 Transferrin [Mass/Vol] 264 mg/dL Normal 200-370 [facility] Comment on above: Performed By: #### 2 [id number] #### [facility] [address] [place] [address] Vit B12on 03-20-2024 Cobalamin (Vitamin B12) [Mass/Vol] 251 pg/mL Normal 50-1500 [facility] Comment on above: Performed By: #### 2 [id number] #### [facility] [address] [place] [address] eGFRon 03-20-2024 eGFR 93 mL/min/1.73 m2 Normal >=59 [facility] Comment on above: Order Comment: Order added by Discern Expert. Performed By: #### 1 [id number] #### [facility] [address] [place] [address] CT Chest, Low Dose Screening on 03-15-2024 CT Chest, Low Dose Screening Exam Date/Time: 03/15/2024 13:15 EDT Reason for Exam: Screening;Z87.891 Report IMPRESSION: Lung RADS category 1: Negative. No nodules and/or definitely benign nodules. Continue annual screening with screening CT chest in [address] IMAGING OF THE CHEST WITHOUT INTRAVENOUS CONTRAST MEDIUM. HISTORY: Tobacco use. TECHNICAL FACTORS: Low dose CT imaging of the chest was obtained and formatted as 2.5 mm contiguous axial images from the thoracic inlet through the adrenal glands. Sagittal and coronal reconstructions obtained during postprocessing. Intravenous contrast medium: None. Comparison: CT chest, March 02, 2023. FINDINGS: Right lung: No nodules, masses, consolidation, pleural effusion, pneumothorax. Scarring, anterior base, right middle lobe. Scarring with subsegmental atelectatic change, right lower lobe. Left lung: No nodules, masses, consolidation, pleural effusion, pneumothorax. Lymph nodes: No hilar, mediastinal, or axillary lymph node enlargement. Thoracic aorta: Normal in course and caliber. Cardiac: Size normal. No pericardial effusion. Coronary artery calcification identified. Upper abdomen:Limited imaging upper abdomen shows no gross anomaly. Musculoskeletal:No osteoblastic, and no osteolytic lesions. Report All CT scans at this facility use dose modulation, iterative reconstruction, and/or weight based dosing when appropriate to reduce radiation dose to as low as reasonably achievable. Ordering Provider: Linda Martinez FINAL REPORT Dictated: 03/15/2024 5:05 pm Juju Kelley MD Signed (Electronic Signature): 03/15/2024 5:05 pm Signed by: Juju Kelley MD Transcribed by: LICO Technologist: ALLAN Argueta [facility] Family Medicine Office/Clini c Noteon 02-24-2024 Family Medicine Office/Clinic Note Family Medicine Office/Clinic Note Chief Complaint Subsequent Medicare Wellness Review of Systems PHQ Score Initial Depression Screen Score: 0 SCORE Physical Exam Vitals & Measurements HR: 78(Peripheral) BP: 120/50 SpO2: 97% HT: 151 cm HT: 59 in WT: 72.7 kg WT: 159.94 lb BMI: 31.88 Assessment/Plan 1. Annual visit for general adult medical examination without abnormal findings (Z00.00: Encounter for general adult medical examination without abnormal findings) The patient was given a customized and personalized print out of all the current AHRQ USPSTF?s recommendations for preventative services and all current CDC recommended immunizations, relevant risk recommendations and the following patient brochures were given. Reviewed Medicare Prevention Services checklist. CDC-Falls Prevention and home safety screening reviewed. Patient denies any falls in last 12 months, voices no worry about falling. Exhibits no problems with sitting, standing or ambulation. Patient aware with keeping walk way area free of clutter to prevent tripping and/or falling. [place] Advance Directives are scanned in chart. Patient is not an organ donor. Patient denies any problems with ADL?s and Instrumental ADL?s. Cognitive screening completed with memory and clock face drawing. No deficits noted. Immunization record reviewed. Discussed Shingrix and pneumococcal vaccine with educational handout and availability. Patient declines immunizations at this time. No COVID vaccines have been administered. Allergies and medications reviewed and up to date. No concerns with taking medication as prescribed. Reviewed OTC medications, medication list up to date. Blood tests were reviewed: Discussed what tests need to be updated. Hepatitis C screening was ordered, will have completed at next PCP visit. No concerns with bowel/ bladder. Colonoscopy last completed 06/17/2022. Patient declines pain today. Patient complains of on and off chest pain 6/10 going on intermittently for years. 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 Reviewed all outside providers that patient follows. Last visit summary notes available in chart and/or have been requested. Patient declines any signs or symptoms of depression at this time. 8 minutes spent with screening and documentation. PHQ2 screening score 0. Patient denies alcohol. 8 minutes spent with screening and documentation. Audit score 0. Follow up scheduled with PCP, today. AWV has been scheduled, 02/19/2025. 2. Chronic obstructive pulmonary disease, (J44.9: Chronic obstructive pulmonary disease, unspecified)COPD without exacerbation Patient uses nebulizer four times a day as directed. Encouraged to remain active, reviewed Pulmonary nutritional recommendations handout during visit. Will continue to monitor for changes and/or concerns with office visits. Patient follows Dr. Martinez, Pulmonology. Pulse ox today was 97%. 4. Chronic respiratory failure with hypoxia (J96.11: Chronic respiratory failure with hypoxia) see #2 5. Bronchiectasis (J47.9: Bronchiectasis, uncomplicated) see #2 6. Controlled type 2 diabetes mellitus without complication, without long-term current use of insulin, (E11.9: Type 2 diabetes mellitus without complications)Diabetes type 2, controlled Patient is compliant on current DM medication: Metformin. Does not monitor BS at home: DM stoplight handout reviewed with s/s to monitor for and report to PCP. Discussed ADA dietary recommendations with low carbs and reduce sugar intake. Patient encouraged to increase daily physical activity, adequate water intake and maintain a healthy weight. Pt follows up with PCP. Follows up with yearly DM eye exams with Dr. Krueger, last visit notes available in chart for review. 8. Heart failure (I50.42: Chronic combined systolic (congestive) and diastolic (congestive) heart failure) Patient follows Dr. Gomes, Cardiology. Patient currently takes the following cardiac medications: Amlodipine, ASA 81, Nitro (prn), furosemide, and per patient is on 2 L O2 at home. Patient did not have O2 on at this visit. Patient has been prescribed Entresto, but has not started it as she is concerned about side effects. Patient encouraged to discuss this with skidder driver. 9. Pulmonary hypertension (I27.20: Pulmonary hypertension, unspecified) see #8 10. Obesity due to excess calories (E66.09: Other obesity due to excess calories) A combination of diet and exercise can help you lose weight. Discussed weight loss benefits to dietary management and overall health with increased cardiovascular risks associated with waist measurement female>35 men>40. Reminded of importance to work on lowering current body weight with healthy dietary intake choices and portion control. Will continue to monitor during office visits. 11. Screening mammogram for breast cancer (Z12.31: Encounter for screening mammogram for malignant neoplasm of breast) Recommended mammogram screening discussed with patient during today's Medicare [place] (more content not included)... Normal [facility] Comment on above: Result Comment: Elec tronically Signed By: Issac Conway MD\.br\Date and Time Signed: 02/24/24 08:14 EDT\.br\Electronically Co-Signed By: Becky Harris\.br\Date and Time Co-Signed: 02/15/24 16:39 EDT Heart and Vascular Office/Cl inic Noteon 02-16-2024 Heart and Vascular Office/Clinic Note Heart and Vascular Office/Clinic Note Chief Complaint 6 month f/u COPD History of Present Illness Here to follow for underlying COPD and shortness of breath. Reports that her shortness of breath has been stable and with mild exertion but varies from one day to another, chronic cough with yellowish and brownish sputum production and intermittent wheezing. She reports mild lower extremity edema denies any chest pain and denies significant weight changes recently. She was also told that she has heart issues and had a stent placed with a most recent echocardiogram showing an ejection fraction of 40%. Has using her nebulizer regularly at home (DuoNeb) usually 3-4 times daily and oxygen at night and as needed during the day. Still actively smoking about 1-1.5 PPD for 40 years. Review of Systems Constitutional: no fever, no chills, no sweats Respiratory: as per HPI Cardiovascular: no chest pain, no palpitations, no edema Gastrointestinal: no nausea, no vomiting, no diarrhea, no GI bleeding Genitourinary: no dysuria, no hematuria, no discharge, no pain Musculoskeletal: no back pain, no trauma Neurologic: no headache, no dizziness, no numbness, no weakness Heme/Lymph: no bleeding tendency, no bruising tendency, no petechiae, no swollen nodes Additional ROS info: Except as noted in the above Review of Systems and in the History of Present Illness all other systems have been reviewed and are negative or noncontributory. Physical Exam Vitals & Measurements HR: 77(Peripheral) RR: 18 BP: 138/78 SpO2: 96% HT: 59 in HT: 151 cm WT: 73.8 kg WT: 162.36 lb BMI: 32.37 General: Awake and alert in no acute distress HEENT: NC, AT Neck: Supple no JVD Respiratory: Good breath sounds to both lung hinds without wheezing or crackles Cardiovascular: regular rate and rhythm, with a soft systolic murmurs Extremities: + edema. Procedure IMPRESSION: Spirometry is normal. Lung volume testing shows hyperinflation and air trapping. The lung diffusion capacity is at low normal level. Clinical and radiographic correlation is recommended. SIX-MINUTE WALK TEST At baseline, heart rate is 71, respiratory rate 18, blood pressure 129/61. Dyspnea scale is 2. Fatigue scale is 3. O2 saturation 97% on room air. After walking, heart rate is 83, respiratory rate 20, blood pressure 134/62. Dyspnea scale is 3. Fatigue scale is 3. O2 saturation is 96% on room air. IMPRESSION: The patient had no significant oxygen desaturation with activities. The patient was able to walk 800 feet which is 57% predicted. [1] Assessment/Plan 1. COPD without exacerbation (J44.9: Chronic obstructive pulmonary disease, unspecified) PFT results were reviewed and discussed with the patient. Possible mild obstructive lung disease given the presence of hyperinflation and air trapping but appears to be somewhat mild based on her PFTs and CT as well. CT scan of the chest was reviewed with minimal bronchiectasis if any. No significant emphysematous changes. Still with significant shortness of breath and I suspect that a cardiac cause is likely contributing given her underlying coronary artery disease and mildly decreased ejection fraction based on her most recent echo. Nevertheless the patient continues to have significant dyspnea and feels that her nebulizers are helping and she typically uses them 3-4 times on a daily basis I will add Breo to her regimen to see if this helps with her symptoms and continue with albuterol/ipratropium nebulizers on as-needed basis. Ordered: fluticasone-vilanterol, 1 puff(s), Inhalation, Daily for 30 day(s), 1 EA, Refill(s) 5, RatePoint #72, 151, cm, 02/16/24 11:43:00 EDT, Height/Length Dosing, 73.8, kg, 02/16/24 11:43:00 EDT, Weight Dosing 2. History of tobacco use (Z87.891: Personal history of nicotine dependence) The patient was counseled on smoking cessation and the effects of smoking on her underlying lung function and overall health status. Plan to repeat low-dose screening CT of the chest in a few weeks as previously ordered. Follow-up With When Contact Information Linda Martinez MD, PUL, TYRA Within 6 months Additional Instructions: Problem List/Past Medical History Ongoing Abdominal pain, right lower quadrant Anemia Arthritis Asthma B12 deficiency Blister of hand BMI 31.0-31.9,adult Bronchiectasis Bronchitis Chronic obstructive pulmonary disease Chronic respiratory failure with hypoxia Controlled type 2 diabetes mellitus without complication, without long-term current use of insulin COPD without exacerbation Cough Fatigue GERD with esophagitis Heart failure History of tobacco use Hypoxemia Incarcerated ventral hernia Inguinal hernia Insomnia Malabsorption of iron Obesity Osteopenia Other iron deficiency anemia Pulmonary hypertension Steatohepatitis, non-alcoholic Systolic murmur Thrombocytosis Vitamin D deficiency Historical No qualifying data (more content not included)... Normal [facility] Comment on above: Result Comment: Elec tronically Signed By: Linda Martinez MD\.br\Date and Time Signed: 02/16/24 12:05 EDT Ambulatory Visit Summaryon 0 02-15-2024 Ambulatory Visit Summary Ambulatory Visit Summary JOHANNA MACDONALD :1955 Visit Date:02/15/2024 Ambulatory Visit Instructions Your Diagnosis Annual visit for general adult medical examination without abnormal findings Chronic obstructive pulmonary disease, COPD without exacerbation Chronic respiratory failure with hypoxia Bronchiectasis Controlled type 2 diabetes mellitus without complication, without long-term current use of insulin, Diabetes type 2, controlled Heart failure Pulmonary hypertension Obesity due to excess calories Screening mammogram for breast cancer Encounter for hepatitis C screening test for low risk patient Current smoker Your Care Team Attending Physician - Issac Conway MD Primary Care Physician - Issac Conway MD This Is Your Medications List Misc Prescription (Misc DME Prescription) Misc Prescription (nebulizer supplies) albuterol-ipratropium (albuterol-ipratropium Inh Ana Cristina 3 mL UD) amlodipine (amLODIPine 10 mg Tab) aspirin (aspirin 81 mg Oral EC Tab) atorvastatin (atorvastatin 80 mg Tab) esomeprazole (esomeprazole 40 mg Cap-EC) furosemide (furosemide 40 mg Tab) metformin (metformin 500 mg Tab) nitroglycerin potassium chloride (Potassium Chloride (Zmh-Ojom-Nto 10) 10 mEq oral tablet, extended release) sacubitril-valsartan (Entresto 24 mg-26 mg oral tablet) trazodone (traZODONE 50 mg Tab) Procedures Performed Cardiac catheterization (02/17/2023), Abdominal hernia, Cardiac catheter, Cholecystectomy, Colonoscopy, EGD (esophagogastroduodenos copy) and closure of duodenal fistula, Exploratory laparotomy, MELVIN BSO - Total abdominal hysterectomy and bilateral salpingo-oophorectomy. Discharge Vitals Heart Rate (Peripheral) 78 Blood Pressure 120/50 Height 151 cm Height 59 in Weight 72.7 kg Weight 159.94 lb BMI 31.88 What to do next Scheduled Follow-Up Appointments Wednesday 11:45 AM EDT With: Michelle GUY, Logan Hammad Where: [facility] Wednesday 11:00 AM EDT With: Where: [facility] Wednesday 1:00 PM EDT With: Where: [facility] Wednesday 2:40 PM EDT With: Marta GUY, Marianne Carney Where: Oncology Wednesday 2:30 PM EDT With: Where: [facility] Family Medicine [facility] Ambulatory Visit Summary Ambulatory Visit Summary JOHANNA MACDONALD :1955 Visit Date:02/15/2024 Ambulatory Visit Instructions Your Diagnosis Anemia Chronic obstructive pulmonary disease BMI 31.0-31.9,adult Class 1 obesity due to excess calories in adult Smoker Vertigo B12 deficiency Incarcerated ventral hernia Insomnia Your Care Team Attending Physician - Issac Conway MD Primary Care Physician - Issac Conway MD This Is Your Medications List Misc Prescription (Misc DME Prescription) Misc Prescription (nebulizer supplies) albuterol-ipratropium (albuterol-ipratropium Inh Ana Cristina 3 mL UD) amlodipine (amLODIPine 10 mg Tab) aspirin (aspirin 81 mg Oral EC Tab) atorvastatin (atorvastatin 80 mg Tab) esomeprazole (esomeprazole 40 mg Cap-EC) furosemide (furosemide 40 mg Tab) metformin (metformin 500 mg Tab) nitroglycerin potassium chloride (Potassium Chloride (Cur-Xcpi-Fcn 10) 10 mEq oral tablet, extended release) sacubitril-valsartan (Entresto 24 mg-26 mg oral tablet) Procedures Performed Cardiac catheterization (02/17/2023), Abdominal hernia, Cardiac catheter, Cholecystectomy, Colonoscopy, EGD (esophagogastroduodenos copy) and closure of duodenal fistula, Exploratory laparotomy, MELVIN BSO - Total abdominal hysterectomy and bilateral salpingo-oophorectomy. Discharge Vitals Blood Pressure 122/68 What to do next Scheduled Follow-Up Appointments Wednesday 11:45 AM EDT [facility]: [facility] Wednesday 11:00 AM EDT With: Where: [facility] Wednesday 1:00 PM EDT With: Where: [facility] Wednesday 2:40 PM EDT With: Marta GUY, Marianne Carney Where: [facility] Wednesday 2:30 PM EDT With: Where: [facility] Family Medicine [place] Normal [facility] Family Medicine Office/Clini c Noteon 02-15-2024 Family Medicine Office/Clinic Note Family Medicine Office/Clinic Note HPI Staff Johanna is a 69 year old female presenting for 2 month follow up anemia, DM, COPD Had AMW today, BP elevated second BP check 122/68 Do you have any of the following symptoms? Foot Exam: UTD Eye Exam: UTD Last A1C: Hgb A1C %: 7.8 % High (12/28/23 11:15:00) Statin: atorvastatin 80mg Patient is here for follow up on COPD: Feeling controlled on medication: somewhat Need medication refilled: Do you use O2? 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 - Did not tolerate some of her meds. - Pt is noncompliant and does things as she sees she needs. Physical Exam Vitals & Measurements BP: 122/68 General: alert, no acute distress ENMT: oral mucosa moist, Cardiovascular: regular rate and rhythm, normal peripheral perfusion Respiratory: Lungs CTA, respirations non labored, Diminished Extremities: no deformity, no trauma Neurological: oriented x 4, LOC appropriate for age, CN II-XII intact, motor strength equal & normal bilaterally, speech normal Abdomen: Soft, Nontender, Non-distended, + BS Assessment/Plan 1. Anemia (D64.9: Anemia, unspecified) - Seeing Hem - Follow up with them 2. Chronic obstructive pulmonary disease (J44.9: Chronic obstructive pulmonary disease, unspecified) - Stable - No issues at this time 3. BMI 31.0-31.9,adult (Z68.31: Body mass index [BMI] 31.0-31.9, adult) - BMI education added 4. Class 1 obesity due to excess calories in adult (E66.09: Other obesity due to excess calories) - Diet and exercise advised 5. Smoker (F17.200: Nicotine dependence, unspecified, uncomplicated) - Please stop smokine Ordered: CT Chest, Low Dose Screening 6. Vertigo (R42: Dizziness and giddiness) Pt declines medications for this or rehab - Increase hydration at this time 7. B12 deficiency (E53.8: Deficiency of other specified B group vitamins) - Pt did not tolerate the oral - Follow up with Hem for more options 8. Incarcerated ventral hernia (K43.6: Other and unspecified ventral hernia with obstruction, without gangrene) - Surgery scheduled for the end of the month 9. Insomnia (G47.00: Insomnia, unspecified) - Will try Trazodone - Discussed how to use it. - Follow up in 1 month. Orders: trazodone, 50 mg = 1 tab(s), Oral, Once a day (at bedtime), # 30 tab(s), Refills(s) 0, Pharmacy: [facility], 151, cm, 02/15/24 15:05:00 EDT, Height/Length Dosing, 72.7, kg, 02/15/24 15:05:00 EDT, Weight Dosing HCV Antibody RFX to Quant PCR MA Mamm Screen w/CAD if perf and 3D [place] Follow-up No qualifying data available Patient Education BMI for Adults Problem List/Past Medical History Ongoing Abdominal pain, right lower quadrant Anemia Arthritis Asthma B12 deficiency Blister of hand BMI 31.0-31.9,adult Bronchiectasis Bronchitis Chronic obstructive pulmonary disease Chronic respiratory failure with hypoxia Controlled type 2 diabetes mellitus without complication, without long-term current use of insulin Cough Fatigue GERD with esophagitis Groin pain, chronic, right Heart failure Hypoxemia Incarcerated ventral hernia Inguinal hernia Insomnia Malabsorption of iron Obesity Osteopenia Other iron deficiency anemia Pulmonary hypertension Shoulder pain, right Steatohepatitis, non-alcoholic Systolic murmur Thrombocytosis Tobacco use Vertigo Vitamin D deficiency Historical No qualifying data Procedure/Surgical History Cardiac catheterization (02/17/2023), Abdominal hernia, Cardiac catheter, Cholecystectomy, Colonoscopy, EGD (esophagogastroduodenos copy) and closure of duodenal fistula, Exploratory laparotomy, MELVIN BSO - Total abdominal hysterectomy and bilateral salpingo-oophorectomy. Medications albuterol-ipratropium Inh Ana Cristina 3 mL UD, See Instructions amLODIPine 10 mg Tab, 10 mg= 1 tab(s), Oral, Daily, 3 refills aspirin 81 mg Oral EC Tab, 81 mg= 1 tab(s), Oral, Daily atorvastatin 80 mg Tab, 80 mg= 1 tab(s), Oral, Daily, 3 refills Entresto 24 mg-26 mg oral tablet, 1 tab(s), Oral, BID, Not taking esomeprazole 40 mg Cap-EC, 40 mg= 1 cap(s), Oral, BID, 3 refills furosemide 40 mg Tab, 40 mg= 1 tab(s), Oral, Daily, 3 refills metformin 500 mg Tab, 1000 mg= 2 tab(s), Oral, BID, 3 refills Misc DME Prescription nebulizer supplies, See Instructions nitroglycerin, See Instructions Potassium Chloride (Tvi-Vxmr-Mpp 10) 10 mEq oral tablet, extended release, 10 mEq, Oral, Daily, 3 refills traZODONE 50 mg Tab, 50 mg= 1 tab(s), Oral, Once a day (at bedtime) Zero Hour, None, Day of Tx Allergies Biaxin (Unknown) C (more content not included)... Normal [facility] Comment on above: Result Comment: Elec tronically Signed By: Man GUY, Issac Morgan.br\Date and Time Signed: 02/15/24 16:11 EDT Coding Summary.on 02-05-2024 Coding Summary. [id number]+PG hlY WQ+JM4YINBxX49pnTNhhP9n J9IFHLgJJcezCPARAXkNHxF hjsMoCW8uwFDlOXWr IC8+VW3rMILcXwidxVVbh4Q 2pIT0Q09wei4fNYlckWP0YW SkEgGjiypad3aluKh2JVfcL mluOyBt YEOfkT58VXF7eG00Gz74yEO ngBNxj0mrmLx1FtXqKPIoQV U7fVyxURhon3CqCTWiT44zz EWot1B1 ZXBayMbudXZsCfPcxMG4oA0 pKBsgnxdrj9erxvyqRsd3sr 10dAJtt6O8oDH6G4TgwnY7C GJvbGQg YpspmWMQhX3rygbjl4zzawi iOzOuSTJiHQc2LRq1UKVomB mmMgNvFK59BQT9CMVzsvMhX 2FsLWFs tHvdHyU5u5W2Bt1EZ9INBpl iB9VXGYZJGDcopAO+PC90cj 17Z0WpGmgdNgl3DCAoAQE4e VX2jR6t LKQdCZyvh5Q6rOG5L1DrioA enp4yg5diQDQbQUrkX36uoQ Bsf1P8XMIzgCD7WRPhtAhbM iBzaG93 Oyc+WGFgeEmrk1XaWaqif1u wr9hseXi4BqybCPAnlaSxrO sySLB8i9BdPf4oVVBgiHK9m EN0jL1l NsFlZqM9ZKmuL707YpBkuMK hQkiwC47gA8GfzQH+PHRyPj i1CGPljViyKU1nC5JzBDFft mctbGVm hQjnUM1tAVLfnsecJBBgfL0 tKZVpH7u9LdFdCtI6SUblN9 QxRCWncwknUb84fR1uDtMgB bV5CVtp G8WmjpM2IPQxvYBcVQrvVEP 9G12ru8J6ZGGpTBZdEVQ7aE Y7rE5rqAoyqcaskHPfrOgds mVydGlj UGxyOKreO367EIFbvMkvZaN vZGluZyBEYXRlOiAgMDYvMj IvMjAyNDwvdGQ+TEUpVXU7f WxlPSAn gUFlMQvrEz6wzZkxiJtwKW7 oPEYqisspAYZqtT3yJWRrnL AnhUxfMM6dHBRphgvrw773E iAxMHB0 UGIpxFZyA5HkeB6uRcJtEYO fMUHcD5MgkCCfATzxY889UQ tfEaY3KWSzloXoY8PfEVGxc WduOiB0 g0C2Wb0Yn7AmdaqtG1NevLI tSiHfXaptWUd2F3AsDhkpsO I+DG97LZMqEY85JSo4NSR7t WxlPSdi FJZyK2AyfN0rGsUqOCQyLCR kOyc+PHRhYmxlIHdpZHRoPS mjAKYwXfZdgSanFR1uPu2wK GVyLWNv rVyviFJhImVhh9exPHPrEJv ySF3eaOghS3JnwTH7QTZdh6 d1Re51J41qW8WfvTB+PGNvb XN6dZN4 uS7dAvOuHyY0SNjaM340UmQ mmWXeCmdfs2mun2zwyIp5Gu F0WKLtaxBvmWhzFRT6l2QnF q09G48l IHdpZHRoPSIxNSUiIHZhbGl shz5mjA3yRm6+OZKziBL6eW A6uC6wLoVjEhO0EEjeQ133S nRvcCIv Keicd7itb8bteUs9MlDwKDU rjvIirSbjIJX4t3AzRt29F3 IysQvqk9BqHuz5wt99mMWim 9Y5vJA5 F1LeVRKehyilyLOdlXdcJK8 dJEJcraazIERrrA3nWKTcY8 t0ScJrLfX8FAnwS1KitmU6X GJvbGQg RKNljPDKbD4sxsbht3elduv rYtNeBWYoVEz6CRv8IFAdhW uiFoCuWJH8OxW3BET6eMRxx F1qpDuh kgpoqI6qLwp+LTL5pPAgwSM WEW6cVjbulLT+DVHaIBH8iH htDCpsYUGizV7jIKCfO1r7J iAwLjA1 RUnoR3QjrtV9XSWujHOrEZM jtZXKjA0qgpcmj5dhrcrlDr AfFXIqPNf9DUl5XSHqnAktH iBsZWZ0 FpZ4IXF9bSDwgF1wyEuginx wqM1tPrh+QpzecMycDRS8GZ f5M3KoLdj4TANtaDiaSB2xz GFkZGlu Bh1amXrrqAseJY3hMJTspog pg391CfEmj6uaHIQtkLDeNL vcHQT3A74gk8G7MODwFBOhK IO2mBG2 iQ5cqZeqyjqkpXWytMuarxS nmOzkQRcjWKncF955MWWpuW pfNcJuPBh8R3HqHtv6JLRpo ErdWK3g gTRoSVmjEi3cbPmgxLaoQZ9 oQNWzwnwbn926WhOrm0frRT UhbLMqIRelCAX9S26ff3A9G CMwMDAw VQG0kXC4zA3cuPukphjycGK mdDsgdmVydGljYWwtYWxpZ2 18RDAlwJikTnSzlZt2O9LsD df8ITRp uGvtIE7eyPKjYUzmKq2aePu hvYitPO9uGBVxhjpdn555Oa Aag3mzDODxmEVdQYggTIO6K 45ws1W4 LUFlKCKjKXU0dSF1xD0atFu nbjogbGVmdDsgdmVydGljYW ekQUiyO920SGIatPqdGbCcv GllbnQg FRdwVLy0E3OuSxlbhMH+PC9 2XELkIK25cAXgwKVev8eyoL u0QrGxYKAlRSW3fOypOSjmn 3JkZXIt D29ttNEzm5Y0XYBoyLeyhBV mUrOdnRP5sL1gQFxpcaojs4 cmazvsXezis6uqym28sK85Q 29sIHdp ZHRoPSIzMCUiIHZhbGlnbj0 omS7dRa5+MHOshJZ7oZX1rB 7iXAWmJoU2VXgcB486UrPao CIvPjxj m2qin4hoaHu2CyG5LVXpneT kuCtlTNT2p3YrBa13W74kAG dpZHRoPSIyMCUiIHZhbGlnb n8leM1e Ii8+TOXpmFS8xCB9pL7dLbK xFhW4QQgeS753EjTawIAjId zmN34wR4FxfDL+UYAmOhq6C CBzdHls EJ7gkBIkSWgvZf9qARL6CwT vGwOvYXhwG6FcIHMoaqvorb kvfHD9AIWaGJWfhJ45Sl5ew DogMTBw lFISjL8ictzkp5nednnqMmG bYHGvHTy8WKt4CLBzdFwbLk NfOCT0LaD7LBQ2zHFibX2wc Glnbjog sP0jP0SoGOQxjkbfMa40jT5 lFkWwYwZ7PZkbVdj+UlVOSU 6CPNDHU4MSKdqhdNH+PHRkI DK0mEli NYscOYCpoO7zOIHcH0j8LiM vFfM0UKsbY3UbVLPsvpgyZu 31hB5fEuAkMzV5PQwiX1Xfg qH6CRBh sYCaSAjyUVF5R95qe0Q9XKF wXSMmEDJ2mBK6zZ6ltKwljk ogbGVmdDsgdmVydGljYWwtY ZmaM615 VORwpSpmRkD0TsM8RgQ5FIH 4L7KfUgm9LFZnxSuwNG7wsZ PwSKcfWy0udJilvDtpQC7nR TBpbjtw FTBzvF7mEMWrmXEesLhiHA2 hGNAxmjqla418LyRlDAH5CF RkhTAiL1EmtO1eOzGuRVAgC OAyO7Of mJOgLOecD985IFogCsN9MLU zgsXtA4VmXZIbgVyeZaL2v0 F9Rz28WMUZKRTpvtqeoZZ+P HRkIHN0 tJdnMRdiCUQpqZ5bRKEoM9i 3SsSgNuU9SFvnN0XoLLRhpp wxMy31tZ8xUsTwRtN9KXqhW 9KglgA2 AOIxlVQqUUbsRZG9Q68zs8E 9PDPjRYQpQFX7aAV7iK1dbW lnbjogbGVmdDsgdmVydGljY WwtYWxp E157SBKbwIvjTsLvuPUlTMe vdGQ+CKWmNGF9dYazVCbbHK GfrN9zBVXbM4w5YjPcXnP6X FzjW7Ei WHTwqiydFl98vF7zWnTbHpR 2EQfzN0WqqaD7KHQqpIWjVN mzDKS6F76nz9L7JILxZESvC OA0jXS8 qZ2luUbougflzKOuoJafufM gsUvtKYvaAZwdJ940OJDfqR rrKfieNbDZqw6fQY8dFejxu GQ+PC90 ei97T5XrZxpxEqj6ZPEcVHG 4bAW0bQ8vOQSjDWzim0P4bM H8J2GclcXcnb9kw0dyWMLxK GbhQ59h tSCcb6S2PCFcnIG9XOLjuFp iHrTbsE75Lca+PGNvbGdyb3 IkByrve1cqi8fezMh9IrJeH SIgdmFs tSxtDSR4i4KqBx18A28oEUb pZHRoPSIzMCUiIHZhbGlnbj 6rzJ4sNc2+JRWtnKN3qGV9z K8uVzIc WrM1UVbzE077NaDyvOBeKyf nk0qad6yguFm6UzHxMJTuqi CbzAlmKVV5r8SmCu91W9Mta Nqqo6Oz Ucq4qx59dTDig2G4bTX8A7B dSVFncbphjZUgaWnhPQ8oHE MgptynOJAjdC8gWHHcM6o3P iAwLjA1 MFduX6HnumM1PIXjrESrKCE bxIQFdD2agwkuz2rgjrzxQa PpEUUbWDk4UZj4DEIjjEwxT iBsZWZ0 SoT3MWF8rPJahS0zqCyyjnf ijS3nHsn+BFs4v9xhlKVqVN 4xrAM4ZF87VL91dWZar7V6m GM3U1Lh GJVjwavjduikpDI2UKFmXLT ivD49Vg6fqGfyEs9vSLUuLO M6QKXoyPMjW7NwxK6hCyYiI DAwMDAw N8EisEZoSKxfH715TAspEvZ 4DUDruyYsA2IiVCQniXqpLv O2j3U7Ra0COX18FP07AC02u SGxp6M6 rXU8K7QuQCMvrldxuwjyhGH 9BIGxJTLfvW17Cs7cwEhwQc 5dIEKeKXU1LYEnmIDrC6Mpe A3sZbIk MSPtEVEaS9MctPYhIHtrI25 1YQpvGcY3WNFdrrYmK7LzYS ErqVztElE6u7F0Kq9RCh21F C89QT03 zKWxy9S3vKR4G9JuBGOzcln nwaohjMP1SXNsADVydZ19Nh 9qcSzyGn7bHGRjPHY3FIJgl CMtX6Al oW5kZvDiXCRqVBXkN4KcbLR qDMvzA777MXldBiT1NKRlnv MbR3BpMFUdhTkuDvO9f9Z8F m4CTEzf eyj1A3EkAvtfvES+OY20TLL uCN61vCTofCYig8cpxHl9Ym QfFNYwRGA2bQsbGNkcs1QeS ZEpF77w bGXix4X4UDLln (more content not included)... Normal [facility] [place] 02-02-2024 Consent [id number] 0TIFF [facility] Insurance Correspondenceon 0 01-27-2024 Insurance Correspondence [id number] 0TIFF Normal [facility] MICRO OTHER TESTSOrdered By: Marge Lange on 01-27-2024 Occult blood panel (Stl) Positive *ABN* (01/27/24 1:15 PM) Invalid Interpretation Code Negative [facility] Man Sero Stl [place] 06-13-2024 Occult blood panel (Stl) Positive Abnormal Negative [facility] Comment on above: Performed By: #### [id number] #### [facility] [address] [place] [address] Consent for Treatmenton 01-14 Consent for Treatment [id number] IFF Normal [facility] ED Pat Eduon 01-25-2024 [facility] Gastroenterology Vitamin B12 Deficiency Vitamin B12 deficiency means that your body does not have enough vitamin B12. The body needs this important vitamin: ? To make red blood cells. ? To make genes (DNA). ? To help the nerves work. If you do not have enough vitamin B12 in your body, you can have health problems, such as not having enough red blood cells in the blood (anemia). What are the causes? ? Not eating enough foods that contain vitamin B12. ? Not being able to take in (absorb) vitamin B12 from the food that you eat. ? Certain diseases. ? A condition in which the body does not make enough of a certain protein. This results in your body not taking in enough vitamin B12. ? Having a surgery in which part of the stomach or small intestine is taken out. ? Taking medicines that make it hard for the body to take in vitamin B12. These include: ? Heartburn medicines. ? Some medicines that are used to treat diabetes. What increases the risk? ? Being an older adult. ? Eating a vegetarian or vegan diet that does not include any foods that come from animals. ? Not eating enough foods that contain vitamin B12 while you are . ? Taking certain medicines. ? Having alcoholism. What are the signs or symptoms? In some cases, there are no symptoms. If the condition leads to too few blood cells or nerve damage, symptoms can occur, such as: ? Feeling weak or tired. ? Not being hungry. ? Losing feeling (numbness) or tingling in your hands and feet. ? Redness and burning of the tongue. ? Feeling sad (depressed). ? Confusion or memory problems. ? Trouble walking. If anemia is very bad, symptoms can include: ? Being short of breath. ? Being dizzy. ? Having a very fast heartbeat. How is this treated? ? Changing the way you eat and drink, such as: ? Eating more foods that contain vitamin B12. ? Drinking little or no alcohol. ? Getting vitamin B12 shots. ? Taking vitamin B12 supplements by mouth (orally). Your doctor will tell you the dose that is best for you. Follow these instructions at home: Eating and drinking ? Eat foods that come from animals and have a lot of vitamin B12 in them. These include: ? Meats and poultry. This includes beef, pork, chicken, turkey, and organ meats, such as liver. ? Seafood, such as clams, rainbow trout, salmon, tuna, and heidi. ? Eggs. ? Dairy foods such as milk, yogurt, and cheese. ? Eat breakfast cereals that have vitamin B12 added to them (are fortified). Check the label. The items listed above may not be a complete list of foods and beverages you can eat and drink. Contact a dietitian for more information. Alcohol use ? Do not drink alcohol if: ? Your doctor tells you not to drink. ? You are , may be , or are planning to become . ? If you drink alcohol: ? Limit how much you have to: ? 0?1 drink a day for women. ? 0?2 drinks a day for men. ? Know how much alcohol is in your drink. In the [place] one drink equals one 12 oz bottle of beer (355 mL), one 5 oz glass of wine (148 mL), or one 1? oz glass of hard liquor (44 mL). General instructions ? Get any vitamin B12 shots if told by your doctor. ? Take supplements only as told by your doctor. Follow the directions. ? Keep all follow-up visits. Contact a doctor if: ? Your symptoms come back. ? Your symptoms get worse or do not get better with treatment. Get help right away if: ? You have trouble breathing. ? You have a very fast heartbeat. ? You have chest pain. ? You get dizzy. ? You faint. These symptoms may be an emergency. Get help right away. Call 911. ? Do not wait to see if the symptoms will go away. ? Do not drive yourself to the hospital. Summary ? Vitamin B12 deficiency means that your body is not getting enough of the vitamin. ? In some cases, there are no symptoms of this condition. ? Treatment may include making a change in the way you eat and drink, getting shots, or taking supplements. ? Eat foods that have vitamin B12 in them. This information is not intended to replace advice given to you by your health care provider. Make sure you discuss any questions you have with your health care provider. Document Revised: 03/27/2022 Document Reviewed: 03/27/2022 [employer] Patient Education ? 2022 [employer]. Hematology Iron Deficiency Anemia, Adult Iron deficiency anemia is when you do not have enough red blood cells or hemoglobin in your blood. This happens because you have too little iron in your body. Hemoglobin carries oxygen to parts of the body. Anemia can cause your body to not get enough oxygen. What are the causes? ? Not eating enough foods that have iron in them. ? The body not being able to take in iron well. ? Blood loss. What increases the risk? ? Having menstrual periods. ? Being . What are the signs or symptoms? ? Pale skin, lip (more content not included)... Normal [facility] Gastroenterology Vitamin B12 Deficiency Vitamin B12 deficiency means that your body does not have enough vitamin B12. The body needs this important vitamin: ? To make red blood cells. ? To make genes (DNA). ? To help the nerves work. If you do not have enough vitamin B12 in your body, you can have health problems, such as not having enough red blood cells in the blood (anemia). What are the causes? ? Not eating enough foods that contain vitamin B12. ? Not being able to take in (absorb) vitamin B12 from the food that you eat. ? Certain diseases. ? A condition in which the body does not make enough of a certain protein. This results in your body not taking in enough vitamin B12. ? Having a surgery in which part of the stomach or small intestine is taken out. ? Taking medicines that make it hard for the body to take in vitamin B12. These include: ? Heartburn medicines. ? Some medicines that are used to treat diabetes. What increases the risk? ? Being an older adult. ? Eating a vegetarian or vegan diet that does not include any foods that come from animals. ? Not eating enough foods that contain vitamin B12 while you are . ? Taking certain medicines. ? Having alcoholism. What are the signs or symptoms? In some cases, there are no symptoms. If the condition leads to too few blood cells or nerve damage, symptoms can occur, such as: ? Feeling weak or tired. ? Not being hungry. ? Losing feeling (numbness) or tingling in your hands and feet. ? Redness and burning of the tongue. ? Feeling sad (depressed). ? Confusion or memory problems. ? Trouble walking. If anemia is very bad, symptoms can include: ? Being short of breath. ? Being dizzy. ? Having a very fast heartbeat. How is this treated? ? Changing the way you eat and drink, such as: ? Eating more foods that contain vitamin B12. ? Drinking little or no alcohol. ? Getting vitamin B12 shots. ? Taking vitamin B12 supplements by mouth (orally). Your doctor will tell you the dose that is best for you. Follow these instructions at home: Eating and drinking ? Eat foods that come from animals and have a lot of vitamin B12 in them. These include: ? Meats and poultry. This includes beef, pork, chicken, turkey, and organ meats, such as liver. ? Seafood, such as clams, rainbow trout, salmon, tuna, and hiedi. ? Eggs. ? Dairy foods such as milk, yogurt, and cheese. ? Eat breakfast cereals that have vitamin B12 added to them (are fortified). Check the label. The items listed above may not be a complete list of foods and beverages you can eat and drink. Contact a dietitian for more information. Alcohol use ? Do not drink alcohol if: ? Your doctor tells you not to drink. ? You are , may be , or are planning to become . ? If you drink alcohol: ? Limit how much you have to: ? 0?1 drink a day for women. ? 0?2 drinks a day for men. ? Know how much alcohol is in your drink. In the [place] one drink equals one 12 oz bottle of beer (355 mL), one 5 oz glass of wine (148 mL), or one 1? oz glass of hard liquor (44 mL). General instructions ? Get any vitamin B12 shots if told by your doctor. ? Take supplements only as told by your doctor. Follow the directions. ? Keep all follow-up visits. Contact a doctor if: ? Your symptoms come back. ? Your symptoms get worse or do not get better with treatment. Get help right away if: ? You have trouble breathing. ? You have a very fast heartbeat. ? You have chest pain. ? You get dizzy. ? You faint. These symptoms may be an emergency. Get help right away. Call 911. ? Do not wait to see if the symptoms will go away. ? Do not drive yourself to the hospital. Summary ? Vitamin B12 deficiency means that your body is not getting enough of the vitamin. ? In some cases, there are no symptoms of this condition. ? Treatment may include making a change in the way you eat and drink, getting shots, or taking supplements. ? Eat foods that have vitamin B12 in them. This information is not intended to replace advice given to you by your health care provider. Make sure you discuss any questions you have with your health care provider. Document Revised: 03/27/2022 Document Reviewed: 03/27/2022 [employer] Patient Education ? 2022 [employer]. Hematology Iron Deficiency Anemia, Adult Iron deficiency anemia is when you do not have enough red blood cells or hemoglobin in your blood. This happens because you have too little iron in your body. Hemoglobin carries oxygen to parts of the body. Anemia can cause your body to not get enough oxygen. What are the causes? ? Not eating enough foods that have iron in them. ? The body not being able to take in iron well. ? Blood loss. What increases the risk? ? Having menstrual periods. ? Being . What are the signs or symptoms? ? Pale skin, lip (more content not included)... Normal [facility] ED [facility] Hematology Iron Deficiency Anemia, Adult Iron deficiency anemia is when you do not have enough red blood cells or hemoglobin in your blood. This happens because you have too little iron in your body. Hemoglobin carries oxygen to parts of the body. Anemia can cause your body to not get enough oxygen. What are the causes? ? Not eating enough foods that have iron in them. ? The body not being able to take in iron well. ? Blood loss. What increases the risk? ? Having menstrual periods. ? Being . What are the signs or symptoms? ? Pale skin, lips, and nails. ? Weakness, dizziness, and getting tired easily. ? Feeling like you cannot breathe well when moving (shortness of breath). ? Cold hands and feet. Mild anemia may not cause any symptoms. How is this treated? This condition is treated by finding out why you do not have enough iron and then getting more iron. It may include: ? Adding foods to your diet that have a lot of iron. ? Taking iron pills (supplements). If you are or , you may need to take extra iron. Your diet often does not provide the amount of iron that you need. ? Getting more vitamin C in your diet. Vitamin C helps your body take in iron. You may need to take iron pills with a glass of orange juice or vitamin C pills. ? 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 ? Surgery or testing procedures to find what is causing the condition. You may need blood tests to see if treatment is working. If the treatment does not seem to be working, you may need more tests. Follow these instructions at home: Medicines ? Take oxwf-jii-vojrrmu and prescription medicines only as told by your doctor. This includes iron pills and vitamins. Taking them as told is important because too much iron can be harmful. ? Take iron pills when your stomach is empty. If you cannot handle this, take them with food. ? Do not drink milk or take antacids at the same time as your iron pills. ? Iron pills may turn your poop (stool)black. ? If you cannot handle taking iron pills by mouth, ask your doctor about getting iron through: ? An IV tube. ? A shot (injection) into a muscle. Eating and drinking ? Talk with your doctor before changing the foods you eat. Your doctor may tell you to eat foods that have a lot of iron, such as: ? Liver. ? Low-fat (lean) beef. ? Breads and cereals that have iron added to them. ? Eggs. ? Dried fruit. ? Dark green, leafy vegetables. ? Eat fresh fruits and vegetables that are high in vitamin C. They help your body use iron. Foods with a lot of vitamin C include: ? Oranges. ? Peppers. ? Tomatoes. ? Mangoes. Managing constipation If you are taking iron pills, they may cause trouble pooping (constipation). To prevent or treat this, you may need to: ? Drink enough fluid to keep your pee (urine) pale yellow. ? Take aktk-mjv-dewnojm or prescription medicines. ? Eat foods that are high in fiber. These include beans, whole grains, and fresh fruits and vegetables. ? Limit foods that are high in fat and sugar. These include fried or sweet foods. General instructions ? Return to your normal activities when your doctor says that it is safe. ? Keep all follow-up visits. Contact a doctor if: ? You feel like you may vomit (nauseous), or you vomit. ? You feel weak. ? You get light-headed when getting up from sitting or lying down. ? You are sweating for no reason. ? You have trouble pooping. ? You have worse breathing with physical activity. ? You have heaviness in your chest. Get help right away if: ? You faint. If this happens, do not drive yourself to the hospital. ? You have a fast heartbeat, or a heartbeat that does not feel regular. Summary ? Iron deficiency anemia happens when you have too little iron in your body. ? This condition is treated by finding out why you do not have enough iron in your body and then getting more iron. ? Take dbla-glx-vpicsbr and prescription medicines only as told by your doctor. ? Eat fresh fruits and vegetables that are high in vitamin C. ? Contact a doctor if you have trouble pooping or feel weak. This information is not intended to replace advice given to you by your health care provider. Make sure you discuss any questions you have with your health care provider. Document Revised: 09/10/2022 Document Reviewed: 09/10/2022 [employer] Patient Education ? 2022 [employer]. [facility] Oncology Noteon 01-25-[address] Lozano saw pawan ludwig, after Dr. moura I spent approx 20 minutes going over handouts on B12 deficiency, iron deficiency anemia and foods rich in iron. with understanding voiced. I gave pt my contact information and and instructed to call with any questions or concerns. I answered all questions at this time. I instructed on how to give a urine specimen and took pt to bathroom, with supplies. Pt voided and specimen collected and sent to lab by another nurse. I also gave pt supplies for stool specimen and instructed in how to collect and once collected to bring to admitting desk. Pt voiced understanding. I also instructed in oupt labs when and where with understanding voiced. [facility] Comment on above: Result Comment: Elec tronically Signed By: Arabella HERNANDEZ, Chelle\.br\Date and Time Signed: 01/25/24 14:26 EDT Oncology Progress Noteon Oncology Progress Note Chief Complaint Thrombocytosis, anemia; go over results. History of Present Illness Johanna is 69-year-old nice lady with history of right inguinal hernia, COPD on oxygen intermittently at home, type 2 diabetes mellitus, chronic smoking-related cough, who smoked 1 to 1-1/2 pack/day for 42 years, and arthritis who was sent from her primary care physician to our hematology office to be evaluated for thrombocytosis with a platelet count of 508,000- 539,000 as per labs done since May 2023 through December 2023. Labs also showed microscopic anemia with hemoglobin of 8.9. Her iron studies were low consistent with ferritin of 5. The details of the labs are as follows: Labs on 12/28/2023 revealed WBC of 8.2, hemoglobin 8.9, MCV 70.2 which is low, MCH is low 21.8, MCHC is low at 31.0. RDW is high 17.2% platelet is a little high at 5 38,000. Has been mildly elevated 11068 39,000 since May 2023. WBC differential is normal. Iron is low at 21. Transferrin 328. TIBC is high 459. Ferritin is low 5 only. The folate is 20.6 and the B12 is low normal at 251. She stated she had a colonoscopy and EGD about 3 years ago in [place] by a visiting doctor from [place] but he told her that he was not able to see all the part of the colonoscopy therefore he could not rule out malignancy of the colon at that point. Patient does not remember if she was told to have it repeated. She has not seen GI since then. She denies any rectal bleeding or melena but she tried oral iron multiple times and every time she tries she has nausea and burping and indigestion. She denies any gross hematuria and denies any bleeding from any other sources. She eats red meat only once every 2 weeks. She denied being vegetarian. She smokes 1 and half pack per day for 42 years. 14 point systems were reviewed and are negative. Review of Systems General: Patient denied fevers or headaches or dizziness. Positive for severe fatigue and shortness of breath with mild exertion. Lymphatic: No enlarged lymphadenopathy. Cardiovascular: Patient denied CP, SOB or leg edema. Respiratory: no cough or SOB or hemoptysis. Positive for shortness of breath with mild exertion. GI: No nausea or vomiting or diarrhea or constipation or rectal bleeding or emesis or melena. : no gross hematuria or dysuria or frequency currently. Extremities: No edema of the lower extremities. Hematological: No focal masses anywhere and no easy bruising or bleeding tendency. Musculoskeletal: No deformities of the joints or the spine. Neurological: no vision changes or weakness or sensory changes. Physical Exam ECOG PS 1. General: alert, no acute distress HENMT: Normocephalic, atraumatic. Neck: supple and no LAP or thyromegaly. Cardiovascular: regular rate and rhythm, No murmurs Respiratory: Lungs CTA, respirations non labored. Abdomen: Soft nontender nondistended without hepatosplenomegaly or masses clinically. Extremities: no deformity, no edema. Lymph system: Currently she has no lymphadenopathy in her cervical area subclavian area/axillary areas and inguinal areas bilaterally. Neurological: oriented x 4, LOC appropriate for age, CN II-XII intact, motor strength equal & normal bilaterally, sensation normal bilaterally, speech normal Skin: No rash. Psychiatric: Normal mood and interaction. Diagnoses 1. Anemia (D64.9: Anemia, unspecified) 2. Other iron deficiency anemia (D50.9: Iron deficiency anemia, unspecified) 3. Thrombocytosis (D75.839: Thrombocytosis, unspecified) 4. 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 B12 deficiency (E53.8: Deficiency of other specified B group vitamins) His iron deficiency anemia of unclear etiology could be combination of malabsorption of iron and nutritional deficiency versus GI blood loss. Therefore we will obtain FOBT and send her to GI for screening colonoscopy and EGD as 3 years ago she had 1 [place] by visiting GI from the [facility] but told her that she was not able to complete the colonoscopy. Patient never seen GI since then. Plan: Will check urinalysis with micro to look for microscopic hematuria. FOBT in the next few weeks. Will give her IV iron infusion with Venofer 300 mg x 3 doses. She tried several times oral iron which caused her upset stomach, nausea, indigestion, burping and nausea. Start her on sublingual B12 2500 mcg daily. Recheck labs in 10 weeks including CBC with differential, CMP, reticulocyte count, LDH, iron studies, B12 and folate. Will defer MPN panel to later as his thrombocytosis might be related to just iron deficiency anemia. Will also check parietal cell antibodies and intrinsic factor antibodies as well. Referred to GI for screening colonoscopy and also EGD for evaluation for iron deficiency anemia. Return in 11 weeks for results. Follow-up No qualifying data available Medications albuterol-ipratropium Inh Ana Cristina 3 mL UD, See Instructions amLODIPine 10 mg Tab, 10 mg= 1 tab(s), Oral, Daily, 3 refills (more content not included)... Normal [facility] UA with Cult Rflxon 01-25-20 24 Bilirubin Ql (U) Negative Normal Negative [facility] Comment on above: Performed By: #### 4 [id number] #### [facility] [address] [place] [address] Clarity (U) Clear Normal Clear [facility] Comment on above: Performed By: #### 4 [id number] #### [facility] [address] [place] [address] Color (U) Colorless Abnormal Yellow [facility] Comment on above: Result Comment: Micr oscopic readings are only performed on those samples that meet specific criteria set forth by [facility]. Performed By: #### 4 [id number] #### [facility] [address] [place] [address] Glucose Ql (U) Negative Normal Negative [facility] Comment on above: Performed By: #### 4 [id number] #### [facility] [address] [place] [address] Hemoglobin Auto test strip (U) [Mass/Vol] Negative Normal Negative [facility] Comment on above: Performed By: #### 4 [id number] #### [facility] [address] [place] [address] Ketones Auto test strip Ql (U) Negative Normal Negative [facility] Comment on above: Performed By: #### 4 [id number] #### [facility] [address] [place] [address] Leukocyte esterase Auto test strip Ql (U) Negative Normal Negative [facility] Comment on above: Performed By: #### 4 [id number] #### [facility] [address] [place] [address] Nitrite Auto test strip Ql (U) Negative Normal Negative [facility] Comment on above: Performed By: #### 4 [id number] #### [facility] [address] [place] [address] pH (U) 5.0 [pH] Invalid Interpretation Code 5.0-9.0 [facility] Comment on above: Performed By: #### 4 [id number] #### [facility] [address] [place] [address] Protein Ql (U) Negative Normal Negative [facility] Comment on above: Performed By: #### 4 [id number] #### [facility] [address] [place] [address] Specific gravity (U) [Rel density] 1.004 Invalid Interpretation Code 1.005-1.030 [facility] Comment on above: Performed By: #### 4 [id number] #### [facility] [address] [place] [address] Urobilinogen (U) [Mass/Vol] Negative Normal Negative [facility] Comment on above: Performed By: #### 4 [id number] #### [facility] [address] [place] [address]383 Type of Urine collection method Clean Catch Normal [facility] Comment on above: Performed By: #### 4 [id number] #### [facility] [address] [place] [address] URINALYSISOrdered By: SYSTEM SYSTEM on 01-25-2024 Bilirubin Ql (U) Negative Normal Negativemg/dL [facility] UA Auto SS Clarity (U) Clear (01/25/24 2:24 PM) Normal Clear [facility] UA Auto SS Color (U) Colorless 1 *ABN* (01/25/24 2:24 PM) Invalid Interpretation Code Yellow [facility] UA Auto SS Comment on above: Interpretive Data: M icroscopic readings are only performed on those samples that meet specific criteria set forth by [facility]. Glucose Ql (U) Negative Normal Negativemg/dL [facility] UA Auto SS Hemoglobin Auto test strip (U) [Mass/Vol] Negative Normal Negativemg/dL [facility] UA Auto SS Ketones Auto test strip Ql (U) Negative Normal Negativemg/dL [facility] UA Auto SS Leukocyte esterase Auto test strip Ql (U) Negative Normal NegativeLeu/uL [facility] UA Auto SS Nitrite Auto test strip Ql (U) Negative Normal Negativemg/dL [facility] UA Auto SS pH (U) 5.0 *NA* (01/25/24 2:24 PM) Invalid Interpretation Code 5.0 - 9.0 [facility] UA Auto SS Protein Ql (U) Negative Normal Negativemg/dL [facility] UA Auto SS Specific gravity (U) [Rel density] 1.004 *NA* (01/25/24 2:24 PM) Invalid Interpretation Code 1.005 - 1.030 [facility] UA Auto SS Urobilinogen (U) [Mass/Vol] Negative Normal Negativemg/dL [facility] UA Auto SS URINALYSISOrdered By: Chelle woodruff on 01-25-2024 UA Spec Desc Clean Catch (01/25/24 2:24 PM) Normal [facility] UA Auto SS Path. Reviewon 12-31-2023 Path Review Peripheral Blood Smear: Invalid Interpretation Code [facility] Comment on above: Order Comment: Order added by Discern Expert Performed By: #### 1 [id number] #### [facility] [address] [place] [address] Path. Review Peripheral Blood Sme ar: - RBCs: Hypochromic with anisocytosis - WBCs: Within normal limits - Platelet: Adequate Invalid Interpretation Code [facility] Comment on above: Other Comment: Order added by Discern Expert [id number] 12-29-2023 HbA1c (Bld) [Mass fraction] 7.8 % High <=5.9 [facility] Comment on above: Performed By: #### 7 [id number] #### [facility] [address] [place] [id number] CBC w/ Auto Diffon 4 Acanthocytes LM Ql (Bld) PRESENT Invalid Interpretation Code [facility] Comment on above: Performed By: #### 2 [id number], 2044220, 44897691, 4180743, 9208153, 5905295 #### [facility] [address] [place] [address] Anisocytosis Ql (Bld) PRESENT Invalid Interpretation Code [facility] Comment on above: Performed By: #### 2 071821, 5189224, 58728793, 1956878, 0713008, 9806099 #### [facility] [address] [place] [address] Basophils/100 WBC (Bld) 1.2 % Normal 0.0-2.0 [facility] Comment on above: Performed By: #### 2 565278, 7948165, 08789301, 3964419, 7688236, 3339836 #### [facility] [address] [place] [address] Basophils/Leukocyte s Auto (Bld) [Pure # fraction] 0.1 E9/L Normal 0.0-0.2 [facility] Comment on above: Performed By: #### 2 631593, 8678851, 53019677, 6783944, 8430868, 8165637 #### [facility] [address] [place] [address] Eosinophils (Bld) [#/Vol] 0.3 E9/L Normal 0.0-0.5 [facility] Comment on above: Performed By: #### 2 020102, 0790624, 53479370, 5836881, 2534361, 6927354 #### [facility] [address] [place] [address] Eosinophils/100 WBC (Bld) 3.4 % Normal 0.0-8.0 [facility] Comment on above: Performed By: #### 2 505244, 1298651, 55356318, 7131741, 7518164, 0352225 #### [facility] [address] [place] [address] Erythrocyte distribution width (RBC) [Ratio] 17.2 % High 10.9-14.2 [facility] Comment on above: Performed By: #### 2 403427, 8736413, 45115153, 0603775, 2761279, 2051880 #### [facility] [address] [place] [address] Hematocrit (Bld) [Volume fraction] 28.6 % Low 34.0-46.0 [facility] Comment on above: Performed By: #### 2 844532, 1524937, 18049237, 2247426, 7836726, 1056537 #### [facility] [address] [place] [address] Hemoglobin (Bld) [Mass/Vol] 8.9 g/dL Low 12.0-16.0 [facility] Comment on above: Performed By: #### 2 812393, 1979381, 52994755, 2284521, 9674232, 2368678 #### [facility] [address] [place] [address]8098 Hypochromia Auto Ql (Bld) PRESENT Invalid Interpretation Code [facility] Comment on above: Performed By: #### 2 872340, 1376438, 71962928, 9789561, 2575188, 0461431 #### [facility] [address] [place] [address]33 Lymphocytes (Bld) [#/Vol] 1.9 E9/L Normal 1.0-4.0 [facility] Comment on above: Performed By: #### 2 080533, 2266848, 98323695, 5653684, 0279356, 0006173 #### [facility] [address] [place] [address]54 Lymphocytes/100 WBC (Bld) 23.1 % Normal 14.0-50.0 [facility] Comment on above: Performed By: #### 2 741285, 6539224, 08615504, 8385822, 4659651, 8142344 #### [facility] [address] [place] [address] 35167 MCH (RBC) [Entitic mass] 21.8 pg Low 27.0-34.0 [facility] Comment on above: Performed By: #### 2 044621, 5607105, 59832292, 3954659, 4372452, 7019281 #### [facility] [address] [place] [address]2712 MCHC (RBC) [Mass/Vol] 31.0 g/dL Low 31.4-36.0 [facility] Comment on above: Performed By: #### 2 631202, 1495640, 85841833, 8131585, 6045560, 5714129 #### [facility] [address] [place] [address] 73961 MCV (RBC) [Entitic vol] 70.2 fL Low 80.0-100.0 [facility] Comment on above: Performed By: #### 2 183249, 6339429, 57317363, 4094760, 7609989, 8746459 #### [facility] [address] [place] [address]57 Monocytes (Bld) [#/Vol] 0.9 E9/L Normal 0.2-1.0 [facility] Comment on above: Performed By: #### 2 778496, 5956368, 21892527, 8504965, 8694712, 4482263 #### [facility] [address] [place] [address]48 Neutrophils (Bld) [#/Vol] 5.0 E9/L Normal 2.0-7.5 [facility] Comment on above: Performed By: #### 2 180199, 6578219, 02492583, 9202380, 4317999, 2951327 #### [facility] [address] [place] [address]720 Neutrophils/100 WBC (Bld) 61.2 % Normal 36.0-75.0 [facility] Comment on above: Performed By: #### 2 037587, 1178809, 37683240, 7510814, 8384705, 0961901 #### [facility] [address] [place] [address] Ovalocytes LM Ql (Bld) PRESENT Invalid Interpretation Code [facility] Comment on above: Performed By: #### 2 202097, 9067398, 44842806, 5040273, 8312987, 5551797 #### [facility] [address] [place] [address] Platelet 538.0 E9/L High 150.0-500.0 [facility] Comment on above: Performed By: #### 2 731802, 6480319, 46862621, 2379996, 0295873, 9538231 #### [facility] [address] [place] [address] Platelet mean volume (Bld) [Entitic vol] 7.2 fL Normal 6.4-10.8 [facility] Comment on above: Performed By: #### 2 407377, 2419908, 69817284, 4173581, 3763948, 0308812 #### [facility] [address] [place] [address] RBC (Bld) [#/Vol] 4.1 E12/L Low 4.3-5.9 [facility] Comment on above: Performed By: #### 2 959539, 6205743, 08952637, 2447023, 0801236, 3260535 #### [facility] [address] [place] [address] 95571 RBC size Nom (Bld) SEE MORPHOLOGY Invalid Interpretation Code [facility] Comment on above: Performed By: #### 2 308327, 1894669, 08404413, 9777448, 1256414, 3479867 #### [facility] [address] [place] [address] WBC corrected for nucl RBC Auto (Bld) [#/Vol] 8.2 E9/L Normal 4.0-11.0 [facility] Comment on above: Performed By: #### 2 252599, 3426934, 82786315, 2806704, 7599978, 3541936 #### [facility] [address] [place] [address] CHEMISTRYOrdered By: SYSTEM SYSTEM on 12-28-2023 Cobalamin (Vitamin B12) [Mass/Vol] 251 pg/mL Normal 50 - 1500 pg/mL Remisol Chem Ferritin [Mass/Vol] 5 ng/mL Low 11 - 307 ng/mL R emisol Chem Folate [Mass/Vol] 20.6 ng/mL Normal >=6.7ng/mL Remisol Chem Iron [Mass/Vol] 21 ug/dL Low 35 - 153 mcg/dL Brad ana cristina Chem Iron binding capacity [Mass/Vol] 459 ug/dL High 250 - 400 mcg/dL Remisol Natalie m Transferrin [Mass/Vol] 328 mg/dL Normal 200 - 370 mg/dL Remisol Chem Ferritinon 12-28-2023 Ferritin [Mass/Vol] 5 ng/mL Low 11-307 [facility] Comment on above: Performed By: #### 2 001900, 6153181, 09793286, 0624380, 2850975, 2125639 #### [facility] [address] [place] [address] Folateon 12-28-2023 Folate [Mass/Vol] 20.6 ng/mL Normal >=6.7 [facility] Comment on above: Performed By: #### 2 668806, 4834148, 46515182, 7290265, 9423912, 9688182 #### [facility] [address] [place] [address] HEMATOLOGYOrdered By: SYSTEM SYSTEM on 12-28-2023 Acanthocytes LM Ql (Bld) PRESENT *NA* (12/28/23 11:15 AM) Invalid Interpretation Code Remisol Heme Anisocytosis Ql (Bld) PRESENT *NA* (12/28/23 11:15 AM) Invalid Interpretation Code Remisol Heme Basophils/100 WBC (Bld) 1.2 % Normal 0.0 - 2.0 % Remisol Heme Basophils/Leukocyte s Auto (Bld) [Pure # fraction] 0.1 E9/L Normal 0.0 - 0.2 E9/L Remisol Heme Eosinophils (Bld) [#/Vol] 0.3 E9/L Normal 0.0 - 0.5 E9/L Remisol Heme Eosinophils/100 WBC (Bld) 3.4 % Normal 0.0 - 8.0 % Remisol Heme Erythrocyte distribution width (RBC) [Ratio] 17.2 % High 10.9 - 14.2 % Remisol Heme Hematocrit (Bld) [Volume fraction] 28.6 % Low 34.0 - 46.0 % Remisol Heme Hemoglobin (Bld) [Mass/Vol] 8.9 g/dL Low 12.0 - 16.0 gm/dL Remisol Heme Hypochromia Auto Ql (Bld) PRESENT *NA* (12/28/23 11:15 AM) Invalid Interpretation Code Remisol Heme Lymphocytes (Bld) [#/Vol] 1.9 E9/L Normal 1.0 - 4.0 E9/L Remisol Heme Lymphocytes/100 WBC (Bld) 23.1 % Normal 14.0 - 50.0 % Remisol Heme MCH (RBC) [Entitic mass] 21.8 pg Low 27.0 - 34.0 pg Remisol Heme MCHC (RBC) [Mass/Vol] 31.0 g/dL Low 31.4 - 36.0 gm/dL Remisol Heme MCV (RBC) [Entitic vol] 70.2 fL Low 80.0 - 100.0 fL Remisol Heme Monocytes (Bld) [#/Vol] 0.9 E9/L Normal 0.2 - 1.0 E9/L Remisol Heme Monocytes/100 WBC (Bld) 11.1 % Normal 4.0 - 14.0 % Remisol Heme Neutrophils (Bld) [#/Vol] 5.0 E9/L Normal 2.0 - 7.5 E9/L Remisol Heme Neutrophils/100 WBC (Bld) 61.2 % Normal 36.0 - 75.0 % Remisol Heme Ovalocytes LM Ql (Bld) PRESENT *NA* (12/28/23 11:15 AM) Invalid Interpretation Code Remisol Heme Platelet 538.0 E9/L High 150.0 - 500.0 E9/L Remisol Heme Platelet mean volume (Bld) [Entitic vol] 7.2 fL Normal 6.4 - 10.8 fL Remisol Heme RBC (Bld) [#/Vol] 4.1 E12/L Low 4.3 - 5.9 E12/L Re misol Heme RBC size Nom (Bld) SEE MORPHOLOGY *NA* (12/28/23 11:15 AM) Invalid Interpretation Code Remisol Heme WBC corrected for nucl RBC Auto (Bld) [#/Vol] 8.2 E9/L Normal 4.0 - 11.0 E9/L Remisol Heme Ironon 12-28-2023 Iron [Mass/Vol] 21 microgram/dL Low 35-153 [facility] Comment on above: Performed By: #### 2 473299, 4727228, 07284763, 6054927, 3297443, 0430867 #### [facility] [address] [place] [address] Nurse Consultation Noteon Nurse Consultation Note Reason for Visit lab work Assessment/Plan Diabetes (E11.9: Type 2 diabetes mellitus without complications) Iron deficiency anemia (D50.9: Iron deficiency anemia, unspecified) Medications albuterol-ipratropium Inh Ana Cristina 3 mL UD, See Instructions amLODIPine 10 mg Tab, 10 mg= 1 tab(s), Oral, Daily, 3 refills aspirin 81 mg Oral EC Tab, 81 mg= 1 tab(s), Oral, Daily atorvastatin 80 mg Tab, 80 mg= 1 tab(s), Oral, Daily, 3 refills esomeprazole 40 mg Cap-EC, 40 mg= 1 cap(s), Oral, BID, 3 refills furosemide 40 mg Tab, 40 mg= 1 tab(s), Oral, Daily, 3 refills isosorbide mononitrate 30 mg ER Tab, 30 mg= 1 tab(s), Oral, qAM, 3 refills metformin 500 mg Tab, 1000 mg= 2 tab(s), Oral, BID, 3 refills Misc DME Prescription nebulizer supplies, See Instructions nitroglycerin, See Instructions Potassium Chloride (Ehi-Xygj-Lhb 10) 10 mEq oral tablet, extended release, 10 mEq, Oral, Daily, 3 refills Allergies Biaxin (Unknown) Cipro (Unknown) Keflex (Unknown) amoxicillin (Unknown) atenolol (Unknown) doxycycline (Unknown) sulfa drugs (Unknown) Immunizations Vaccine Date Status Comments influenza virus vaccine, inactivated - Not Given Patient Refuses influenza virus vaccine, inactivated - Not Given Patient Refuses Normal [facility] TIBC Calculatedon 12-28-2023 Iron binding capacity [Mass/Vol] 459 microgram/dL High 250-400 [facility] Comment on above: Performed By: #### 2 545837, 0966289, 14977838, 5767095, 1746344, 0508982 #### [facility] [address] [place] [address] Transferrin [Mass/Vol] 328 mg/dL Normal 200-370 [facility] Comment on above: Performed By: #### 2 754406, 2408551, 28456118, 9747092, 9723758, 7358352 #### [facility] [address] [place] [address] Vit B12on 12-28-2023 Cobalamin (Vitamin B12) [Mass/Vol] 251 pg/mL Normal 50-1500 [facility] Comment on above: Performed By: #### 2 698448, 2057566, 61070175, 3570058, 4785869, 3659973 #### [facility] [address] [place] [address] CNOVon 12-27-2023 CNOV Office Visit (URIEL ) JOHANNA MACDONALD ([id number]) 1955 F Date Time Provider Department 12/27/23 2:00 PM JUJU OROURKE During your visit today, we recorded the following information about you: Temperature Pulse Blood pressure Weight 97.8 degrees 74/minute 121/45 69.9 kg Height 1.499 m Jayashree Kirkland MA 12/27/2023 2:44 PM Signed What is the reason for your visit today? Consult Who is your referring physician? Dr. Orourke Are you having poor oral intake? NO Have you had unintentional weight loss of 15 lbs/7 Kg in the last 3-6 months? NO Bowels: regular Wound: clean AND dry Temperature: No Drains: No Juju Orourke MD 12/27/2023 4:23 PM Signed Consultation requested by Dr. Karl Montes for an opinion regarding recurrent incisional hernia. My final recommendations will be communicated back to the requesting physician by way of shared medical record or letter via [place] mail. Johanna Macdonald is a 68 year old female who presents with recurrent incisional hernia. She underwent incisional hernia repair followed by mesh excision for infected mesh in 2007. She then underwent open incisional hernia repair with Permacol mesh. She then got a mesh infection. Her CT shows a 12 cm incisional hernia. I think I can see the PTFE suture that was used to secure the periphery of the Permacol mesh. She has a history of MRSA infection.. Open vs robotic AWR. Need to check HbA1c. I have seen and evaluated the patient and discussed the case with the resident physician. I agree with the assessment and plan as documented in the resident?s note including a ROS that was reviewed and negative other than what was indicated in our notes. Patient consented for study? Yes STUDY TITLE: Robotic versus Open Ventral Hernia Repair (ROVHR) Trial IRB NO.: # [id number] CONTACT LENS FLASHING PUNCHER: Cornell Boles MD FLAKE MILLER WHEAT AND OATS: ePtar Bell MD CONTACT: [email or web address] Consenting was performed by the attending surgeon, in a [id number] manner, during preoperative evaluation in General Surgery clinic. Discussed above research protocol with the patient. The risks, benefits, alternatives, and costs were discussed. The study requirements and follow up procedures were reviewed and the importance of follow up compliance was stressed. All patient questions were addressed and answered. Patient has read and understood the study procedures and requirements. Patient has agreed to proceed with trial participation and consent signed. Copy of the signed consent provided to the patient. INCLUSION CRITERIA Yes No 1. The patient is > 18 years of age [x] [] 2. Midline ventral hernia defects ranging from 7 cm to 15 cm in greatest width as measured by pre-operative CT scan [x] [] 3. Body mass index (BMI) less than or equal to 45 [x] [] 4. Patient deemed either a robotic or an open candidate by the operating surgeon [x] [] EXCLUSION CRITERIA Yes No 1. Age 17 or younger [] [x] 2. Prisoners [] [x] 3. patients [] [x] 4. Emergent cases [] [x] 5. BMI greater than 45 [] [x] 6. Hernia defects less than 7 cm or greater than 15 cm in width as measured by pre-operative CT scan [] [x] Cece Hoskins 12/27/2023 4:23 PM Signed [facility] Abdominal [facility] - HISTORY AND PHYSICAL Chief Complaint: Ventral incisional hernia HPI: Johanna Macdonald is a 68 year old female who presents with a ventral incisional hernia, not painful now while sitting but can reach a 3 or 4 in pain intensity. Sometimes she has a feeling of fullness in her abdomen by the hernia. There does not seem to be a trigger for the pain. Hernia appeared last year; she noticed it when she coughed. She is not sure what may have caused the hernia. Relevant previous operations include: Hysterectomy, cholecystectomy. 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 A previous hernia repair with mesh had an issue with strangulation of the hernia. A wound vac was placed prior to fixing this hernia. MRSA infection occurred at the umbilical hernia. No history of Psychiatric Disorders or Opioid Use Did take 2 Percocet pills back in the 90's after a surgery. Independent No employment Sporadic (once/month) Walks around the house and to go shopping but no exercise otherwise. Hypertension, Diabetes Mellitus, COPD, Dyspnea, Anti-platelet medications, Congestive Heart Failure History of abdominal wall surgical site infection No past medical history on file. No past surgical history on file. Social History Tobacco Use Smoking status: Every Day Types: Cigarettes Smokeless tobacco: Never 1.5-2 packs per day. She quit in the and then restarted in the early . Does not use alcohol. No family history on file. ALLERGIES Allergen Reactions Atenolol Anaphylaxis, Unknown Throat swelling. Doxycycline Unknown Pseudoephedrine Int (more content not included)... Normal [facility] HISTORY PHYSICALon HISTORY PHYSICAL HNO ID: [id number] Author: ?, ?, ? Service: ? Author Type: ? Type: H&P Filed: 12/27/2023 16:23 Note Text: [facility] Abdominal [facility] - HISTORY AND PHYSICAL Chief Complaint: Ventral incisional hernia HPI: Johanna Macdonald is a 68 year old female who presents with a ventral incisional hernia, not painful now while sitting but can reach a 3 or 4 in pain intensity. Sometimes she has a feeling of fullness in her abdomen by the hernia. There does not seem to be a trigger for the pain. Hernia appeared last year; she noticed it when she coughed. She is not sure what may have caused the hernia. Relevant previous operations include: Hysterectomy, cholecystectomy. 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 A previous hernia repair with mesh had an issue with strangulation of the hernia. A wound vac was placed prior to fixing this hernia. MRSA infection occurred at the umbilical hernia. No history of Psychiatric Disorders or Opioid Use Did take 2 Percocet pills back in the 90's after a surgery. Independent No employment Sporadic (once/month) Walks around the house and to go shopping but no exercise otherwise. Hypertension, Diabetes Mellitus, COPD, Dyspnea, Anti-platelet medications, Congestive Heart Failure History of abdominal wall surgical site infection No past medical history on file. No past surgical history on file. Social History Tobacco Use Smoking status: Every Day Types: Cigarettes Smokeless tobacco: Never 1.5-2 packs per day. She quit in the s and then restarted in the early . Does not use alcohol. No family history on file. ALLERGIES Allergen Reactions Atenolol Anaphylaxis, Unknown Throat swelling. Doxycycline Unknown Pseudoephedrine Intolerance Amoxicillin Itching, Other: See Comments Cephalexin Itching, Rash Ciprofloxacin Itching, Rash Clarithromycin Itching, Rash Quinidine Itching Red Dye Unknown Sulfa (Sulfonamide * Itching, Unknown Current Outpatient Medications Medication Sig Dispense Refill metFORMIN (GLUCOPHAGE) 500 mg tablet Take 1 tablet every day by oral route for 90 days. atorvastatin (LIPITOR) 80 mg tablet Take 1 tablet by mouth daily at bedtime. potassium chloride (K-TAB) 10 mEq tablet Take 1 tablet by mouth every 48 hours. isosorbide mononitrate ER (IMDUR) 30 mg 24 hr tablet Take 1 tablet by mouth every morning. aspirin, enteric coated (ASPIRIN, ENTERIC COATED) 81 mg EC tablet in the morning. ipratropium-albuterol (DUONEB) 0.5 mg-3 mg(2.5 mg base)/3 mL nebu INHALE 3 (THREE) mls BY MOUTH via NEBULIZER FOUR TIMES DAILY esomeprazole (NEXIUM) 40 mg capsule Take 40 mg by mouth two times a day. amLODIPine (NORVASC) 10 mg tablet Take 10 mg by mouth once daily. furosemide (LASIX) 40 mg tablet Take 40 mg by mouth once daily. No current facility-administered medications for this visit. REVIEW OF SYSTEMS GENERAL: Sometimes experiences headaches. HEENT: Blurry vision related to cataract surgery. No hearing, smell, taste issues. RESPIRATORY: Positive for coughing and a couple instances of hemoptysis. CARDIOVASCULAR: Squeezing heart pain sometimes. GI: Positive for occasional nausea and constipation : Positive for polyuria with water pill. Negative for hematuria. ENDOCRINE: Sometimes feels too hot or cold. BP (!) 121/45 Pulse 74 Temp 36.6 ?C (97.8 ?F) (Temporal) Ht 149.9 cm (4' 11 ) Wt 69.9 kg (154 lb) BMI 31.10 kg/m? Physical findings of this patient are as follows (COMPLETE 10 INCLUDING HEART AND LUNG EXAM OR CHOOSE NORMAL EXAM IF APPROPRIATE): Physical Exam Physical Exam Constitutional: The patient is in no distress. Abdominal: Soft. Ventral hernia present and increases in size with cough. Skin: Skin is warm and dry. Relevant Hernia Findings - Increases in size with cough. LABS: No results found for: HBA1C IMAGING - Reviewed with staff CT - Oct 14, 2023 Assessment: Johanna Macdonald is a 68 year old female who presents with ventral hernia. Plan: - hernia repair in trial for robot or open Normal [facility] Physician Referralon 024 Physician Referral [id number] IFF Normal [facility] RAD - MISCon 12-03-2023 RAD - MIS [id number] IFF Normal [facility] Ambulatory Visit Summaryon 0 11-30-2023 Ambulatory Visit Summary JOHANNA MACDONALD :1955 Visit Date:11/30/2023 Ambulatory Visit Instructions Your Diagnosis Chronic obstructive pulmonary disease Chronic respiratory failure with hypoxia Pulmonary hypertension BMI 31.0-31.9,adult Class 1 obesity due to excess calories in adult Smoker Your Care Team Attending Physician - Issac Conway MD Primary Care Physician - Issac Conway MD This Is Your Medications List Misc Prescription (Misc DME Prescription) Misc Prescription (nebulizer supplies) albuterol-ipratropium (albuterol-ipratropium Inh Ana Cristina 3 mL UD) amlodipine (amLODIPine 10 mg Tab) aspirin (aspirin 81 mg Oral EC Tab) atorvastatin (atorvastatin 80 mg Tab) esomeprazole (esomeprazole 40 mg Cap-EC) furosemide (furosemide 40 mg Tab) isosorbide mononitrate (isosorbide mononitrate 30 mg ER Tab) metformin (metformin 500 mg Tab) nabumetone (nabumetone 500 mg Tab) nitroglycerin potassium chloride (Potassium Chloride (Mpr-Dchu-Lqo 10) 10 mEq oral tablet, extended release) Procedures Performed Cardiac catheterization (02/17/2023), Abdominal hernia, Cardiac catheter, Cholecystectomy, Colonoscopy, EGD (esophagogastroduodenos copy) and closure of duodenal fistula, Exploratory laparotomy, MELVIN BSO - Total abdominal hysterectomy and bilateral salpingo-oophorectomy. Discharge Vitals Temperature (Temporal Artery) 37.1 ?C Heart Rate (Peripheral) 84 Respiratory Rate 24 Blood Pressure 134/62 Height 151 cm Height 59 in Weight 72.1 kg Weight 158.62 lb BMI 31.62 What to do next Scheduled Follow-Up Appointments Wednesday. 2023 10:40 AM EDT With: Where: [facility] Invalid Interpretation Code [address] [place] [address]- \.br\ 2023 2:45 PM EDT \.br\ With: Issac Conway MD\.br\ Where: [facility] Medicine Office/Clini c Noteon 11-30-2023 Family Medicine Office/Clinic Note HPI Staff Johanna is a 68 year old female presenting for one month follow up anemia, pulmonary htn Had iron infusion Patient is here for follow up on hypertension. How often are you checking your blood pressure? Doesnt check BP at home What are your average readings? N/A, Not checking at home Yearly BMP: 09/23/23 Patient is here for follow up on COPD: follows with pulmonology Feeling controlled on medication: not really Need medication refilled: Do you use O2? yes 2L Acute: chest feels full/heavy questions/concerns: needs refills of amlodipine aslo says the ipratropium/albuterol for nebulizer has always been written for q4h and now it says 4 times a day so not getting enough supply History of Present Illness - Here for follow up. - Wants an increase in meds. - Pt has been having some Vertigo symptoms. Review of Systems PHQ Score Initial Depression Screen Score: 0 SCORE Physical Exam Vitals & Measurements T: 37.1 ?C(Temporal Artery) HR: 84(Peripheral) RR: 24 BP: 134/62 SpO2: 98% HT: 59 in HT: 151 cm WT: 72.1 kg WT: 158.62 lb BMI: 31.62 General: alert, no acute distress ENMT: oral mucosa moist, Cardiovascular: regular rate and rhythm, normal peripheral perfusion, Diminished, Wet cough noted. Respiratory: Lungs CTA, respirations non labored Extremities: no deformity, no trauma Neurological: oriented x 4, LOC appropriate for age, CN II-XII intact, motor strength equal & normal bilaterally, speech normal Abdomen: Soft, Nontender, Non-distended, + BS Assessment/Plan 1. Chronic obstructive pulmonary disease (J44.9: Chronic obstructive pulmonary disease, unspecified) - Pt has not followed with Dr. Carranza. - Pt should call his office for an apt. - Will refill meds. Ordered: Body Mass Index (BMI) documented 3008F Current tobacco smoker 1034F Depression Screening Negative 3352F Influenza immunization status assessed 1030F Most recent diastolic blood pressure <80 mm Hg 3078F Patient screen for fall risk: no falls in last year or 1 fall with no injury in last year 1101F Systolic BP 130-139 mm Hg (Most Recent) 3075F 2. Chronic respiratory failure with hypoxia (J96.11: Chronic respiratory failure with hypoxia) - Not hypoxic today, but can be. - Has 2L prn Ordered: Body Mass Index (BMI) documented 3008F Current tobacco smoker 1034F Depression Screening Negative 3352F Influenza immunization status assessed 1030F Most recent diastolic blood pressure <80 mm Hg 3078F Patient screen for fall risk: no falls in last year or 1 fall with no injury in last year 1101F Systolic BP 130-139 mm Hg (Most Recent) 3075F 3. Pulmonary hypertension (I27.20: Pulmonary hypertension, unspecified) - Please see Dr. Carranza. Ordered: Body Mass Index (BMI) documented 3008F Current tobacco smoker 1034F Depression Screening Negative 3352F Influenza immunization status assessed 1030F Most recent diastolic blood pressure <80 mm Hg 3078F Patient screen for fall risk: no falls in last year or 1 fall with no injury in last year 1101F Systolic BP 130-139 mm Hg (Most Recent) 3075F 4. BMI 31.0-31.9,adult (Z68.31: Body mass index [BMI] 31.0-31.9, adult) - BMI education given Ordered: Body Mass Index (BMI) documented 3008F Current tobacco smoker 1034F Depression Screening Negative 3352F Influenza immunization status assessed 1030F Most recent diastolic blood pressure <80 mm Hg 3078F Patient screen for fall risk: no falls in last year or 1 fall with no injury in last year 1101F Systolic BP 130-139 mm Hg (Most Recent) 3075F 5. Class 1 obesity due to excess calories in adult (E66.09: Other obesity due to excess calories) - Diet and exercise advised Ordered: Body Mass Index (BMI) documented 3008F Current tobacco smoker 1034F Depression Screening Negative 3352F Influenza immunization status assessed 1030F Most recent diastolic blood pressure <80 mm Hg 3078F Patient screen for fall risk: no falls in last year or 1 fall with no injury in last year 1101F Systolic BP 130-139 mm Hg (Most Recent) 3075F 6. Smoker (F17.200: Nicotine dependence, unspecified, uncomplicated) - Please stop smoking. Ordered: Body Mass Index (BMI) documented 3008F Current tobacco smoker 1034F Depression Screening Negative 3352F Influenza immunization status assessed 1030F Most recent diastolic blood pressure <80 mm Hg 3078F Patient screen for fall risk: no falls in last year or 1 fall with no injury in last year 1101F Systolic BP 130-139 mm Hg (Most Recent) 3075F 7. Vertigo (R42: Dizziness and giddiness) - Will send to PT for Vestibular PT 8. Cough (R05.9: Cough, unspecified) - Will do CXR. Wet cough noted. Orders: albuterol-ipratropium, See Instructions, 360 mL, Refill(s) 0, TAKE 3ml BY MOUTH FOUR TIMES DAILY, [employer] #72, 151, cm, 11/30/23 11:15:00 EDT, Height/Length Dosing, 72.1, kg, 11/30/23 11:15:00 EDT, Weight Dosing budesonide-formoterol, 2 puff(s), Inhalation, (more content not included)... Normal [facility] Comment on above: Result Comment: Elec tronically Signed By: Man GUY, Issac Sam\.br\Date and Time Signed: 11/30/23 12:47 EDT Patient Educationon 11-30-19 Patient Education Nutrition BMI for Adults What is BMI? Body mass index (BMI) is a number that is calculated from a person's weight and height. BMI can help estimate how much of a person's weight is composed of fat. BMI does not measure body fat directly. Rather, it is an alternative to procedures that directly measure body fat, which can be difficult and expensive. BMI can help identify people who may be at higher risk for certain medical problems. What are BMI measurements used for? BMI is used as a screening tool to identify possible weight problems. It helps determine whether a person is obese, overweight, a healthy weight, or underweight. BMI is useful for: ? Identifying a weight problem that may be related to a medical condition or may increase the risk for medical problems. ? Promoting changes, such as changes in diet and exercise, to help reach a healthy weight. BMI screening can be repeated to see if these changes are working. How is BMI calculated? BMI involves measuring your weight in relation to your height. Both height and weight are measured, and the BMI is calculated from those numbers. This can be done either in [place] or metric measurements. Note that charts and online BMI calculators are available to help you find your BMI quickly and easily without having to do these calculations yourself. To calculate your BMI in [place] measurements: 1. Measure your weight in pounds (lb). 2. Multiply the number of pounds by 703. ? For example, for a person who weighs 180 lb, multiply that number by 703, which equals 126,540. 3. Measure your height in inches. Then multiply that number by itself to get a measurement called inches squared. ? For example, for a person who is 70 inches tall, the inches squared measurement is 70 inches x 70 inches, which equals 4,900 inches squared. 4. Divide the total from step 2 (number of lb x 703) by the total from step 3 (inches squared): 126,540 ? 4,900 = 25.8. This is your BMI. To calculate your BMI in metric measurements: 1. Measure your weight in kilograms (kg). 2. Measure your height in meters (m). Then multiply that number by itself to get a measurement called meters squared. ? For example, for a person who is 1.75 m tall, the meters squared measurement is 1.75 m x 1.75 m, which is equal to 3.1 meters squared. 3. Divide the number of kilograms (your weight) by the meters squared number. In this example: 70 ? 3.1 = 22.6. This is your BMI. What do the results mean? BMI charts are used to identify whether you are underweight, normal weight, overweight, or obese. The following guidelines will be used: ? Underweight: BMI less than 18.5. ? Normal weight: BMI between 18.5 and 24.9. ? Overweight: BMI between 25 and 29.9. ? Obese: BMI of 30 or above. Keep these notes in mind: ? Weight includes both fat and muscle, so someone with a muscular build, such as an athlete, may have a BMI that is higher than 24.9. In cases like these, BMI is not an accurate measure of body fat. ? To determine if excess body fat is the cause of a BMI of 25 or higher, further assessments may need to be done by a health care provider. ? BMI is usually interpreted in the same way for men and women. Where to find more information For more information about BMI, including tools to quickly calculate your BMI, go to these websites: ? Centers for Disease Control and Prevention: www.cdc.gov ? [place] [employer]: www.heart.org ? National Heart, Lung, and Blood [place]: www.nhlbi.nih.gov Summary ? Body mass index (BMI) is a number that is calculated from a person's weight and height. ? BMI may help estimate how much of a person's weight is composed of fat. BMI can help identify those who may be at higher risk for certain medical problems. ? BMI can be measured using [place] measurements or metric measurements. ? BMI charts are used to identify whether you are underweight, normal weight, overweight, or obese. This information is not intended to replace advice given to you by your health care provider. Make sure you discuss any questions you have with your health care provider. Document Revised: 04/24/2020 Document Reviewed: 03/01/2020 [employer] Patient Education ? 2022 [employer]. Normal [facility] Physician Orderon 11-30-2023 Physician Order [id number] IFF Normal [facility] CNPNon 11-10-2023 CNPN Telephone (GENSMN) JOHANNA MACDONALD ([id number]) 1955 F Date Time Provider Department 11/10/23 ALINA SPRING During your visit today, we recorded the following information about you: Alina Spring OCCA 11/10/2023 3:45 PM Signed Reviewed chart for clinic prep. Faxed requests for operative reports to [facility], and [facility] for CT push/disc. Handy Spring EMT-P, OCCA Buettner, William, OCCA 11/15/2023 2:17 PM Signed Called patient to request recent imaging and PSHx. No answer, left message. Need PSHx, imaging requested. Handy Spring EMT-P, OCCA Buettner, William, OCCA 11/15/2023 2:34 PM Addendum Patient returned call, reports previous surgeries performed at [facility] and [facility]. Will attempt to locate reports. Handy Spring EMT-P, OCCA Buettner, William, OCCA 11/19/2023 8:29 AM Signed Called patient to advise we still have not received a disc. Patient will obtain disc today and hand carry. Handy Spring EMT-P, OCCA Allergies As of Date: 11/10/2023 (Not on File) Date Reviewed: Never Reviewed Reason for Visit: Clinic Prep [Other] Problem List As Of Date: 11/10/2023 (None) Encounter Status:Closed by ALINA SPRING on 11/10/23 Normal [facility] Pre-Certification Formon Pre-Certification Form [id number] IFF Normal [facility] Formson 10-25-2023 Forms [id number] IFF Normal [facility] Family Medicine Office/Clini c Noteon 10-22-2023 Family Medicine Office/Clinic Note HPI Staff Johanna is a 68 year old female presenting to discuss labs in further detail Labs 09/23/23 Oral iron doesn't work for her and she used to get the venofer infusions feels she needs to get those Also she's been staggering room doesn't spin. in the [employer] store couple weeks ago and would've went down but right there and got her and c/o being short winded. Saw Dr Cat and he referred her to [facility] has appt November 21. He wouldn't do it cause he said it would take a bigger mesh and so sending her to [facility] flu: refused questions/concerns: needs refills of her potassium, atorvastatin and amlodipine History of Present Illness Johanna Macdonald is a 68-year-old female who presents to discuss laboratory results in further details. The patient experiences intolerance to iron supplementation, reporting gastrointestinal distress and regurgitation of the iron even when taken with food, without any indication of concurrent bleeding. She also presents with episodes of staggering and delayed mobilization, which have been intermittent but notably resulted in a fall approximately 1.5 weeks ago while in a store, accompanied by a sensation of malaise in her head and body. She is currently prescribed metformin twice daily. Despite adherence to prescribed breathing treatments, she perceives limited efficacy, with persistent dyspnea even during conversation. The patient ceased smoking in the but subsequently gained significant weight of 75 pounds. Past attempts at smoking cessation using Chantix were discontinued due to adverse effects. Her rotary engraver is Dr. Martinez. Review of Systems PHQ Score Initial Depression Screen Score: 1 SCORE Physical Exam Vitals & Measurements T: 37.5 ?C(Temporal Artery) HR: 86(Peripheral) RR: 20 BP: 132/78 SpO2: 98% HT: 59 in HT: 151 cm WT: 71.2 kg WT: 156.64 lb BMI: 31.23 General: alert, no acute distress ENMT: oral mucosa moist, no pharyngeal erythema or exudate Cardiovascular: regular rate and rhythm, normal peripheral perfusion Respiratory: Diminished breath sounds in all lung hinds. Extremities: no deformity, no trauma Neurological: oriented x 4, LOC appropriate for age, CN II-XII intact, motor strength equal & normal bilaterally, speech normal. Assessment/Plan 1. Pulmonary hypertension (I27.20: Pulmonary hypertension, unspecified) The patient is advised to schedule a follow-up appointment with Dr. Martinez. Given increasing respiratory difficulties, I recommended smoking cessation to mitigate potential hypoxic episodes contributing to the patient's unsteady gait. Should these episodes occur, prompt evaluation is warranted for accurate diagnosis and management. 2. Other iron deficiency anemia (D50.9: Iron deficiency anemia, unspecified) Evaluation of iron levels will be conducted, and consideration will be given to iron transfusion due to the patient's inability to tolerate oral iron supplementation. 3. BMI 31.0-31.9,adult (Z68.31: Body mass index [BMI] 31.0-31.9, adult) BMI data has been uploaded to the patient's medical record for reference. 4. Chronic obstructive pulmonary disease (J44.9: Chronic obstructive pulmonary disease, unspecified) Smoking cessation counseling was reiterated, and the initiation of Wellbutrin therapy will be attempted to aid in reducing smoking behavior. 5. Class 1 obesity due to excess calories in adult (E66.09: Other obesity due to excess calories) Recommendations for dietary modifications and exercise were provided to address the patient's obesity. 6. Smoker (F17.200: Nicotine dependence, unspecified, uncomplicated) Exploration of Wellbutrin therapy as a smoking cessation aid was discussed, alongside continued encouragement for tobacco cessation efforts. 7. Tobacco use (Z72.0: Tobacco use) Encouragement for tobacco cessation was reiterated to the patient, emphasizing the importance of quitting smoking for overall health improvement. Portions of this record may have been created with voice recognition artificial intelligence software, specifically Presdo, Flatter World and or Tangled. Substitutions may have occurred due to the inherent limitations of voice recognition and artificial intelligence software. ATTESTATION: Documentation services were performed after patient or guardian consented to allow [employer] to record this visit. KENNETH loan servicing specialist and provider reviewed before signing. KENNETH: Floyd Gotti. Follow-up No qualifying data available Problem List/Past Medical History Ongoing Abdominal pain, right lower quadrant Arthritis Asthma Blister of hand BMI 31.0-31.9,adult Bronchiectasis Bronchitis Chronic obstructive pulmonary disease Chronic respiratory failure with hypoxia Controlled type 2 diabetes mellitus without complication, without long-term current use of insulin Fatigue GERD with esophagitis Groin pain, chronic, right Heart failure Hypoxemia Incarcerated ventral hernia (more content not included)... Normal [facility] Comment on above: Result Comment: Elec tronically Signed By: Issac Conway MD\.br\Date and Time Signed: 10/22/23 11:45 EST\.br\Electronically Co-Signed By: Floyd Gotti H\.br\Date and Time Co-Signed: 10/20/23 16:11 EST Ambulatory Visit Summaryon 0 10-20-2023 Ambulatory Visit Summary JOHANNA MACDONALD :1955 Visit Date:10/20/2023 Ambulatory Visit Instructions Your Diagnosis Pulmonary hypertension Other iron deficiency anemia BMI 31.0-31.9,adult Chronic obstructive pulmonary disease Class 1 obesity due to excess calories in adult Smoker Tobacco use Your Care Team Attending Physician - Issac Conway MD Primary Care Physician - Issac Conway MD This Is Your Medications List albuterol-ipratropium (DuoNeb 2.5 mg-0.5 mg/3 mL Soln-Inh) amlodipine (amLODIPine 10 mg Tab) buPROPion (Wellbutrin SR 150 mg Tab-ER) potassium chloride (Potassium Chloride (Ppf-Riqf-Uds 10) 10 mEq oral tablet, extended release) Contact prescribing physician if questions or concerns Misc Prescription (Misc DME Prescription) Misc Prescription (nebulizer supplies) aspirin (aspirin 81 mg Oral EC Tab) atorvastatin (atorvastatin 80 mg Tab) budesonide-formoterol (Symbicort 160/4.5 inhalation aerosol with adapter) esomeprazole (esomeprazole 40 mg Cap-EC) furosemide (furosemide 40 mg Tab) isosorbide mononitrate (isosorbide mononitrate 30 mg ER Tab) metformin (metformin 500 mg Tab) nabumetone (nabumetone 500 mg Tab) nitroglycerin [Image Removed: STOP]Stop taking these medications docusate-senna (Senna Plus 50 mg-8.6 mg Tab) iron polysaccharide (ProFe 180 mg oral capsule) Procedures Performed Cardiac catheterization (02/17/2023), Abdominal hernia, Cardiac catheter, Cholecystectomy, Colonoscopy, EGD (esophagogastroduodenos copy) and closure of duodenal fistula, Exploratory laparotomy, MELVIN BSO - Total abdominal hysterectomy and bilateral salpingo-oophorectomy. Discharge Vitals Temperature (Temporal Artery) 37.5 ?C Heart Rate (Peripheral) 86 Respiratory Rate 20 Blood Pressure 132/78 Height 151 cm Height 59 in Weight 71.2 kg Weight 156.64 lb BMI 31.23 What to do next Scheduled Follow-Up Appointments Wednesday 11:15 AM EDT With: Man GUY, Issac Sam Where: [place] [id number]- \.br\ Medications\.br\ What How Much When Instructions\.br \ New buPROPion (Wellbutrin SR 150 mg Tab-ER) 1 Tablets By Mouth 2 times a day Pickup at [facility]\.br\ Unchanged albuterol-ipratr opium (DuoNeb 2.5 mg-0.5 mg/ 3 mL Soln-Inh) 3 Milliliter Inhalation 4 times a day Pickup at [facility]\.br\ Unchanged amlodipine (amLODIPine 10 mg Tab) 1 Tablets By Mouth Every day Duration: 90 Days [address] [facility] #[facility]\.br\ Unchanged potassium chloride (Potassium Chloride (Owf-Tjre-Jro 10) 10 mEq oral tablet, extended release) 10 Milliequivalent By Mouth Every day Duration: 90 [address] [facility]\.br\ Unchanged aspirin (aspirin 81 mg Oral EC Tab) 1 Tablets By Mouth Every day Contact prescribing physician if questions or concerns \.br\ Unchanged atorvastatin (atorvastatin 80 mg Tab) 1 Tablets By Mouth Every day Duration: 90 Days Contact prescribing physician if questions or concerns \.br\ Unchanged budesonide-formo terol (Symbicort 160/ 4.5 inhalation aerosol with adapter) 2 Puffs Inhalation 2 times a day Contact prescribing physician if questions or concerns \.br\ Unchanged esomeprazole (esomeprazole 40 mg Cap-EC) 1 Capsules By Mouth 2 times a day TAKE 1 CAPSULE BY MOUTH TWICE DAILY Contact prescribing physician if questions or concerns \.br\ Unchanged furosemide (furosemide 40 mg Tab) 1 Tablets By Mouth Every day Contact prescribing physician if questions or concerns \.br\ Unchanged isosorbide mononitrate (isosorbide mononitrate 30 mg ER Tab) 1 Tablets By Mouth Once a day (in the morning) Duration: 90 Days Contact prescribing physician if questions or concerns \.br\ Unchanged metformin (metformin 500 mg Tab) 2 Tablets By Mouth 2 times a day Duration: 90 Days Contact prescribing physician if questions or concerns \.br\ Unchanged Misc Prescription (Misc DME Prescription) 2L of Oxygen daily however pt wears PRN Contact prescribing physician if questions or concerns \.br\ Unchanged Misc Prescription (nebulizer supplies) See instructions nebulizer supplies- tubing and cup Contact prescribing physician if questions or concerns \.br\ Unchanged nabumetone (nabumetone 500 mg Tab) 1 Tablets By Mouth 2 times a day when needed Contact prescribing physician if questions or concerns \.br\ Unchanged nitroglycerin See instructions 0.4 mg SubLingual as needed for chest pain Contact prescribing physician if questions or concerns \.br\ Pharmacy Information\.br\ [facility]: [address] [place] [id number] [phone]\.br\ \.br\ What How Much When Why Comments\.br\ Stop Taking docusate-senna (Senna Plus 50 mg-8.6 mg Tab) 1 Tablets By Mouth Every day\.br\ Stop Taking iron polysaccharide (ProFe 180 mg oral capsule) 1 Capsules By Mouth Every day Inguinal hernia\.br\ Allergies\.br\ Biaxin (Unknown)\.br\ Cipro (Unknown)\.br\ Keflex (Unknown)\.br\ amoxicillin (Unknown)\.br\ atenolol (Unknown)\.br\ doxycycline (Unknown)\.br\ sulfa drugs (Unknown)\.br\ Problems\.br\ Ongoing - Any problem that you are currently receiving treatment for.\.br\ Abdominal pain, right lower quadrant\.br\ Arthritis\.br\ Asthma\.br\ Blister of hand\.br\ BMI 31.0-31.9,adult\ .br\ Bronchiectasis\. br\ Bronchitis\.br\ Chronic obstructive pulmonary disease\.br\ Chronic respiratory failure with hypoxia\.br\ Controlled type 2 diabetes mellitus without complication, without long-term current use of insulin\.br\ Fatigue\.br\ GERD with esophagitis\.br\ Groin pain, chronic, right\.br\ Heart failure\.br\ Hypoxemia\.br\ Incarcerated ventral hernia\.br\ Inguinal hernia\.br\ Obesity\.br\ Osteopenia\.br\ Other iron deficiency anemia\.br\ Pulmonary hypertension\.br \ Shoulder pain, right\.br\ Steatohepatitis, non-alcoholic\.b r\ Systolic murmur\.br\ Thrombocytosis\. br\ Tobacco use\.br\ Vitamin D deficiency\.br\ Patient Survey\.br\ You may receive a survey via text or e-mail asking about your office visit. Please share your experience with us by completing your survey. We appreciate your feedback and thank you for choosing us for your care.\.br\ \.br\ [facility] CHEMISTRYOrdered By: SYSTEM SYSTEM on 10-20-2023 Ferritin [Mass/Vol] 5 ng/mL Low 11 - 307 ng/mL R emisol Chem Iron [Mass/Vol] 18 ug/dL Low 35 - 153 mcg/dL Brad ana cristina Chem Iron binding capacity [Mass/Vol] 511 ug/dL High 250 - 400 mcg/dL Remisol Natalie m Transferrin [Mass/Vol] 365 mg/dL Normal 200 - 370 mg/dL Remisol Chem Ferritinon 10-20-2023 Ferritin [Mass/Vol] 5 ng/mL Low 11-307 [facility] Comment on above: Performed By: #### 2 [id number] #### [facility] [address] [place] [address] Ironon 10-20-2023 Iron [Mass/Vol] 18 microgram/dL Low 35-153 [facility] Comment on above: Performed By: #### 2 [id number] #### [facility] [address] [place] [address] TIBC Calculatedon 10-20-2023 Iron binding capacity [Mass/Vol] 511 microgram/dL High 250-400 [facility] Comment on above: Performed By: #### 2 [id number], [id number], [id number] #### [facility] [address] [place] [address] Transferrin [Mass/Vol] 365 mg/dL Normal 200-370 [facility] Comment on above: Performed By: #### 2 [id number] #### [facility] [address] [place] [address] RAD - CT Reporton 10-19-2023 RAD - CT Report [id number] IFF Normal [facility] Lab Reportson 10-15-2023 Lab Reports [id number] IFF Normal [facility] RAD - CT Reporton 10-15-2023 RAD - CT Report [id number] IFF Normal [facility] Ambulatory Visit Summaryon 0 10-06-2023 Ambulatory Visit Summary JOHANNA MACDONALD :1955 Visit Date:10/06/2023 Ambulatory Visit Instructions Your Care Team Attending Physician - EMORY GUY, Juan Pablo King Primary Care Physician - Man GUY, Issac Sam Referring Physician - Issac Conway MD This Is Your Medications List Contact prescribing physician if questions or concerns Misc Prescription (Misc DME Prescription) Misc Prescription (nebulizer supplies) albuterol-ipratropium (DuoNeb 2.5 mg-0.5 mg/3 mL Soln-Inh) amlodipine (amLODIPine 10 mg Tab) aspirin (aspirin 81 mg Oral EC Tab) atorvastatin (atorvastatin 80 mg Tab) budesonide-formoterol (Symbicort 160/4.5 inhalation aerosol with adapter) docusate-senna (Senna Plus 50 mg-8.6 mg Tab) esomeprazole (esomeprazole 40 mg Cap-EC) furosemide (furosemide 40 mg Tab) iron polysaccharide (ProFe 180 mg oral capsule) isosorbide mononitrate (isosorbide mononitrate 30 mg ER Tab) metformin (metformin 500 mg Tab) nabumetone (nabumetone 500 mg Tab) nitroglycerin potassium chloride (Potassium Chloride (Fek-Iyzb-Ivz 10) 10 mEq oral tablet, extended release) Procedures Performed Cardiac catheterization (02/17/2023), Abdominal hernia, Cardiac catheter, Cholecystectomy, Colonoscopy, EGD (esophagogastroduodenos copy) and closure of duodenal fistula, Exploratory laparotomy, MELVIN BSO - Total abdominal hysterectomy and bilateral salpingo-oophorectomy. Discharge Vitals Heart Rate (Peripheral) 72 Respiratory Rate 16 Blood Pressure 138/62 Height 151 cm Height 59 in Weight 71.5 kg Weight 157.3 lb BMI 31.36 What to do next Scheduled Follow-Up Appointments Wednesday 10:00 AM EST With: Michelle GUY, Linda Cueva Where: [facility] Wednesday 2:15 PM EST With: Issac Conway MD Where: [facility] Normal [address] [place] [address]- \.br\ Medications\.br\ What How Much When Why Instructions\.br \ Unchanged albuterol-ipratr opium (DuoNeb 2.5 mg-0.5 mg/ 3 mL Soln-Inh) 3 Milliliter Inhalation 4 times a day Contact prescribing physician if questions or concerns \.br\ Unchanged amlodipine (amLODIPine 10 mg Tab) 1 Tablets By Mouth Every day Duration: 90 Days Contact prescribing physician if questions or concerns \.br\ Unchanged aspirin (aspirin 81 mg Oral EC Tab) 1 Tablets By Mouth Every day Contact prescribing physician if questions or concerns \.br\ Unchanged atorvastatin (atorvastatin 80 mg Tab) 1 Tablets By Mouth Every day Duration: 90 Days Contact prescribing physician if questions or concerns \.br\ Unchanged budesonide-formo terol (Symbicort 160/ 4.5 inhalation aerosol with adapter) 2 Puffs Inhalation 2 times a day Contact prescribing physician if questions or concerns \.br\ Unchanged docusate-senna (Senna Plus 50 mg-8.6 mg Tab) 1 Tablets By Mouth Every day Contact prescribing physician if questions or concerns \.br\ Unchanged esomeprazole (esomeprazole 40 mg Cap-EC) 1 Capsules By Mouth 2 times a day TAKE 1 CAPSULE BY MOUTH TWICE DAILY Contact prescribing physician if questions or concerns \.br\ Unchanged furosemide (furosemide 40 mg Tab) 1 Tablets By Mouth Every day Contact prescribing physician if questions or concerns \.br\ Unchanged iron polysaccharide (ProFe 180 mg oral capsule) 1 Capsules By Mouth Every day Inguinal hernia Contact prescribing physician if questions or concerns \.br\ Unchanged isosorbide mononitrate (isosorbide mononitrate 30 mg ER Tab) 1 Tablets By Mouth Once a day (in the morning) Duration: 90 Days Contact prescribing physician if questions or concerns \.br\ Unchanged metformin (metformin 500 mg Tab) 2 Tablets By Mouth 2 times a day Duration: 90 Days Contact prescribing physician if questions or concerns \.br\ Unchanged Misc Prescription (Misc DME Prescription) 2L of Oxygen daily however pt wears PRN Contact prescribing physician if questions or concerns \.br\ Unchanged Misc Prescription (nebulizer supplies) See instructions nebulizer supplies- tubing and cup Contact prescribing physician if questions or concerns \.br\ Unchanged nabumetone (nabumetone 500 mg Tab) 1 Tablets By Mouth 2 times a day when needed Contact prescribing physician if questions or concerns \.br\ Unchanged nitroglycerin See instructions 0.4 mg SubLingual as needed for chest pain Contact prescribing physician if questions or concerns \.br\ Unchanged potassium chloride (Potassium Chloride (Qpy-Qmxf-Uvu 10) 10 mEq oral tablet, extended release) 10 Milliequivalent By Mouth Every day Duration: 90 Days Contact prescribing physician if questions or concerns \.br\ Allergies\.br\ Biaxin (Unknown)\.br\ Cipro (Unknown)\.br\ Keflex (Unknown)\.br\ amoxicillin (Unknown)\.br\ atenolol (Unknown)\.br\ doxycycline (Unknown)\.br\ sulfa drugs (Unknown)\.br\ Problems\.br\ Ongoing - Any problem that you are currently receiving treatment for.\.br\ Arthritis\.br\ Asthma\.br\ Blister of hand\.br\ BMI 31.0-31.9,adult\ .br\ Bronchiectasis\. br\ Bronchitis\.br\ Chronic obstructive pulmonary disease\.br\ Chronic respiratory failure with hypoxia\.br\ Controlled type 2 diabetes mellitus without complication, without long-term current use of insulin\.br\ Fatigue\.br\ GERD with esophagitis\.br\ Groin pain, chronic, right\.br\ Heart failure\.br\ Hypoxemia\.br\ Inguinal hernia\.br\ Obesity\.br\ Osteopenia\.br\ Other iron deficiency anemia\.br\ Pulmonary hypertension\.br \ Shoulder pain, right\.br\ Steatohepatitis, non-alcoholic\.b r\ Systolic murmur\.br\ Thrombocytosis\. br\ Vitamin D deficiency\.br\ Patient Survey\.br\ You may receive a survey via text or e-mail asking about your office visit. Please share your experience with us by completing your survey. We appreciate your feedback and thank you for choosing us for your care.\.br\ \.br\ [facility]/[place] 09-28-2023 Family Medicine Office/Clinic Note HPI Staff Johanna is a 68 year old female presenting for 3 month follow up Patient is here for follow up on COPD: Feeling controlled on medication: sometimes Need medication refilled: no Do you use O2? yes 2L Do you have any of the following symptoms? Foot Exam: UTD Eye Exam: UTD Last A1C: Hgb A1C %: 8.8 % High (05/24/23 15:48:00) Statin: atorvastatin 80mg flu: refused. questions/concerns: needs refills of her potassium, atorvastatin and [facility] thinks her hernia is getting worse, having pain right lower abd on the side area History of Present Illness Johanna Macdonald is a 68-year-old female who presents today for an evaluation. The patient reports not feeling better. She underwent umbilical hernia repair surgery and complained of pain in the same region. She mentions experiencing a strange sensation in her legs when she tried to stand up quickly from the couch. She reports undergoing MRSA screenings and having a history of MRSA infection after previous hernia surgeries, which required wound VAC therapy. She observes that her abdomen looks distorted when she sits up. She believes that there is one still left on her right groin that has not been corrected. She reports experiencing dyspnea. She is not using her prescribed inhaler. She requests steroids as they are more convenient for her. She denies any prior use of inhalers. She reports experiencing a loud popping sound and a burning feeling when she lies down, which occurs intermittently. She says this has been going on for the past couple of weeks. She used to be anorexic and weighed about 80 pounds. Review of Systems PHQ Score Initial Depression Screen Score: 1 SCORE Physical Exam Vitals & Measurements T: 37.2 ?C(Temporal Artery) HR: 92(Peripheral) RR: 18 BP: 118/60 HT: 59 in HT: 151 cm WT: 70.8 kg WT: 155.76 lb BMI: 31.05 General: alert, no acute distress ENMT: oral mucosa moist, no pharyngeal erythema or exudate Cardiovascular: regular rate and rhythm, normal peripheral perfusion Respiratory: diminished breath sounds Extremities: no deformity, no trauma Neurological: oriented x 4, LOC appropriate for age, CN II-XII intact, motor strength equal & normal bilaterally, speech normal Abdomen: surgical scar on the abdomen running vertically from the belly button to the pubis. Assessment/Plan 1. Chronic obstructive pulmonary disease (J44.9: Chronic obstructive pulmonary disease, unspecified) We will order a spacer for her inhalers so that she can use those better. We will not be giving the patient steroids as her A1c was 8.8%. Patient understands. 2. Controlled type 2 diabetes mellitus without complication, without long-term current use of insulin (E11.9: Type 2 diabetes mellitus without complications) This is not controlled at this time. The patient was also taking multiple rounds of steroids when her A1c increased, so we will look at what her A1c is this time and then we will go from there. 3. Pulmonary hypertension (I27.20: Pulmonary hypertension, unspecified) The patient should continue using her inhalers and we will monitor. 4. Chronic combined systolic (congestive) and diastolic (congestive) heart failure, (I50.42: Chronic combined systolic (congestive) and diastolic (congestive) heart failure)Heart failure Does not appear fluid overloaded at this time. The last BNP was only slightly elevated that will be used for our baseline going forward. 5. Chronic respiratory failure with hypoxia (J96.11: Chronic respiratory failure with hypoxia) The patient has 2 L of oxygen at home. Patient refuses to use them. Patient is 98% on room air. 6. BMI 31.0-31.9,adult (Z68.31: Body mass index [BMI] 31.0-31.9, adult) BMI education given 7. Class 1 obesity due to excess calories in adult (E66.09: Other obesity due to excess calories) Diet and exercise advised. 8. Smoker (F17.200: Nicotine dependence, unspecified, uncomplicated) Encouraged the patient not to smoke. 9. Groin pain, chronic, right (R10.31: Right lower quadrant pain) Other chronic pain (G89.29: Other chronic pain) ATTESTATION: Portions of this record may have been created with voice recognition artificial intelligence software, specifically Presdo, Flatter World and or Tangled. Substitutions may have occurred due to the inherent limitations of voice recognition and artificial intelligence software. Documentation services were performed after patient or guardian consented to allow [employer] to record this visit. KENNETH loan servicing specialist and provider reviewed before signing. KENNETH: Ashley Marina/Pasted by: Shae José Follow-up No qualifying data available Problem List/Past Medical History Ongoing Arthritis Asthma Blister of hand Bronchiectasis Bronchitis Chronic obstructive pulmonary disease Chronic respiratory failure with hypoxia Controlled type 2 diabetes mellitus without complication, without long-term curren (more content not included)... Normal [facility] Comment on above: Result Comment: Elec tronically Signed By: Issac Conway MD\.br\Date and Time Signed: 09/28/23 10:01 EST\.br\Electronically Co-Signed By: Shae José\.br\Date and Time Co-Signed: 09/23/23 15:42 EST Consent for Treatmenton 09-16 Consent for Treatment [id number] IFF Normal [facility] US Extremity Non-Vascular Li mited Righton 09-27-2023 US Extremity Non-Vascular Limited Right Exam Date/Time: 09/27/2023 14:11 EST Reason for Exam: R10.31;Mass Report IMPRESSION: PROBABLE RIGHT INGUINAL HERNIA. IF CLINICAL CONCERN WARRANTS, CT WITH INTRAVENOUS CONTRAST MEDIUM MAY BE UTILIZED FOR FURTHER EVALUATION. CLINICAL HISTORY: Mass, R10.31 COMPARISON: NONE. FINDINGS: Sonographic interrogation was identified in the region of the right inguinal canal. Soft tissue mass identified within the right inguinal canal displaying movement during Valsalva maneuver. No calcifications demonstrated. Ordering Provider: Issac Conway FINAL REPORT Dictated: 09/27/2023 2:41 pm Juju Kelley MD Signed (Electronic Signature): 09/27/2023 2:41 pm Signed by: Juju Kelley MD Transcribed by: LICO Technologist: JEO Barclay [facility] Ambulatory Visit Summaryon 0 09-23-2023 Ambulatory Visit Summary JOHANNA MACDONALD :1955 Visit Date:09/23/2023 Ambulatory Visit Instructions Your Diagnosis Chronic obstructive pulmonary disease Controlled type 2 diabetes mellitus without complication, without long-term current use of insulin Pulmonary hypertension Chronic combined systolic (congestive) and diastolic (congestive) heart failure, Heart failure Chronic respiratory failure with hypoxia BMI 31.0-31.9,adult Class 1 obesity due to excess calories in adult Smoker Your Care Team Attending Physician - Issac Conway MD Primary Care Physician - Issac Conway MD This Is Your Medications List budesonide-formoterol (Symbicort 160/4.5 inhalation aerosol with adapter) Contact prescribing physician if questions or concerns Misc Prescription (Misc DME Prescription) Misc Prescription (nebulizer supplies) albuterol-ipratropium (DuoNeb 2.5 mg-0.5 mg/3 mL Soln-Inh) amlodipine (amLODIPine 10 mg Tab) aspirin (aspirin 81 mg Oral EC Tab) atorvastatin (atorvastatin 80 mg Tab) docusate-senna (Senna Plus 50 mg-8.6 mg Tab) esomeprazole (esomeprazole 40 mg Cap-EC) furosemide (furosemide 40 mg Tab) isosorbide mononitrate (isosorbide mononitrate 30 mg ER Tab) metformin (metformin 500 mg Tab) nabumetone (nabumetone 500 mg Tab) nitroglycerin potassium chloride (Potassium Chloride (Hmr-Mpge-Ruy 10) 10 mEq oral tablet, extended release) Procedures Performed Cardiac catheterization (02/17/2023), Abdominal hernia, Cardiac catheter, Cholecystectomy, Colonoscopy, EGD (esophagogastroduodenos copy) and closure of duodenal fistula, Exploratory laparotomy, MELVIN BSO - Total abdominal hysterectomy and bilateral salpingo-oophorectomy. Discharge Vitals Temperature (Temporal Artery) 37.2 ?C Heart Rate (Peripheral) 92 Respiratory Rate 18 Blood Pressure 118/60 Height 151 cm Height 59 in Weight 70.8 kg Weight 155.76 lb BMI 31.05 What to do next Scheduled Follow-Up Appointments Wednesday 10:00 AM EST With: Michelle GUY, Linda Cueva Where: [facility] 2023 2:00 PM EDT With: Where: [facility] [place] Normal [facility] CBC w/ Auto Diffon 4 Basophil Absolute 0.1 E9/L Normal 0.0-0.2 [facility] Comment on above: Performed By: #### 2 [id number], [id number] ####[facility] [address] [place] [address] Basophils/100 WBC (Bld) 0.6 % Normal 0.0-2.0 [facility] Comment on above: Performed By: #### 2 [id number], [id number] ####[address] [address] Eos Absolute 0.3 E9/L Normal 0.0-0.5 [facility] Comment on above: Performed By: #### 2 833543, [id number], [id number], 8163152 ####[address] [address] Eosinophils/100 WBC (Bld) 2.8 % Normal 0.0-8.0 [facility] Comment on above: Performed By: #### 2 150491, 16057200, 410154340, 0105996 ####[address] [address] Erythrocyte distribution width (RBC) [Ratio] 13.9 % Normal 10.9-14.2 [facility] Comment on above: Performed By: #### 2 724823, 27023685, 476306045, 7484178 ####[address] [address] Hematocrit (Bld) [Volume fraction] 30.0 % Low 34.0-46.0 [facility] Comment on above: Performed By: #### 2 694559, 23113034, 786724602, 6127118 ####[address] [address] Hemoglobin (Bld) [Mass/Vol] 9.8 g/dL Low 12.0-16.0 [facility] Comment on above: Performed By: #### 2 629765, 37797040, 728486919, 0378803 ####[address] [address] Lymph Absolute 2.6 E9/L Normal 1.0-4.0 [facility] Comment on above: Performed By: #### 2 093517, 83621133, 397358243, 0527454 ####[address] [address] Lymphocytes/100 WBC (Bld) 24.8 % Normal 14.0-50.0 [facility] Comment on above: Performed By: #### 2 942400, 30606533, 269974411, 2241377 ####[address] [address] MCH (RBC) [Entitic mass] 25.0 pg Low 27.0-34.0 [facility] Comment on above: Performed By: #### 2 289464, 59558130, 821126491, 6861306 ####[address] [address] MCHC (RBC) [Mass/Vol] 32.9 g/dL Normal 31.4-36.0 [facility] Comment on above: Performed By: #### 2 309125, 90297545, 818786877, 8306909 ####[address] [address] MCV (RBC) [Entitic vol] 75.9 fL Low 80.0-100.0 [facility] Comment on above: Performed By: #### 2 107040, 54052089, 371161444, 1768751 ####[address] [address] Latimer Absolute 0.9 E9/L Normal 0.2-1.0 [facility] Comment on above: Performed By: #### 2 154220, 03617465, 676387890, 5826606 ####[address] [address] Monocytes/100 WBC (Bld) 8.2 % Normal 4.0-14.0 [facility] Comment on above: Performed By: #### 2 127950, 67459467, 632303709, 4535234 ####[address] [address] Neutro Absolute 6.7 E9/L Normal 2.0-7.5 [facility] Comment on above: Performed By: #### 2 712464, 13156257, 574315797, 6278536 ####[address] [place] [address] Neutro Auto 63.6 % Normal 36.0-75.0 [facility] Comment on above: Performed By: #### 2 920993, 62152635, 291048824, 5784758 ####[facility] [address] [place] [address] Platelet 539.0 E9/L High 150.0-500.0 [facility] Comment on above: Performed By: #### 2 701543, 15431138, 229142759, 9569566 ####[address] [address] Platelet mean volume (Bld) [Entitic vol] 7.4 fL Normal 6.4-10.8 [facility] Comment on above: Performed By: #### 2 492246, 30853155, 241033892, 2815946 ####[address] [address] RBC 3.9 E12/L Low 4.3-5.9 [facility] Comment on above: Performed By: #### 2 435313, 86936002, 218863465, 9173035 ####[address] [address] WBC 10.6 E9/L Normal 4.0-11.0 [facility] Comment on above: Performed By: #### 2 718339, 83456275, 033387801, 9257305 ####[facility] [address] [place] [address] CHEMISTRYOrdered By: SYSTEM SYSTEM on 09-23-2023 Albumin [Mass/Vol] 4.1 g/dL Normal 3.3 - 5.0 gm/dL R emisol Chem Albumin/Globulin [Mass ratio] 1.5 {ratio} Normal 1.1 - 2.2 Remisol Chem Alk Phos 101 [iU]/d High 21 - 98 Int._Unit/L Remisol Chem ALT 12 [iU]/d Normal 6 - 46 Int._Unit/L Remisol Chem Anion gap [Moles/Vol] 13 mmol/L Normal 6 - 16 mEq/L Remisol Chem AST 12 [iU]/d Normal 5 - 43 Int._Unit/L Remisol Chem Bili Total 0.3 mg/dL Normal 0.0 - 1.1 mg/dL Remisol C hem Calcium [Mass/Vol] 9.2 mg/dL Normal 8.9 - 11.1 mg/dL Remisol Chem Chloride [Moles/Vol] 104 mmol/L Normal 101 - 111 mmol/L Remisol Chem CO2 [Moles/Vol] 25 mmol/L Normal 21 - 31 mmol/L Remis ol Chem Creatinine [Mass/Vol] 0.7 mg/dL Normal 0.5 - 1.3 mg/dL Remisol Chem eGFR 94 mL/min/1.73 m2 Normal >=59mL/min /1.73 m2 Remisol Chem Globulin (S) [Mass/Vol] 2.7 g/dL Normal 1.4 - 4.0 gm/dL Remisol Chem Glucose [Mass/Vol] 197 mg/dL Normal 55 - 199 mg/dL Re misol Chem Potassium [Moles/Vol] 4.1 mmol/L Normal 3.5 - 5.3 mmol/L Remisol Chem Protein [Mass/Vol] 6.8 g/dL Normal 6.0 - 7.8 gm/dL R emisol Chem Sodium [Moles/Vol] 138 mmol/L Normal 135 - 145 mmol/L Remisol Chem U Microalb microgram/mL Normal 0.0 - 19.0 mcg/mL Remisol Chem Urea nitrogen [Mass/Vol] 10 mg/dL Normal 5 - 21 mg/dL Remisol Chem Urea nitrogen/Creatinine [Mass ratio] 14 mg/mg Normal 10 - 20 Remisol Chem CHEMISTRYOrdered By: Deshaun Felix on 09-23-2023 HbA1c (Bld) [Mass fraction] 8.4 % High <=5.9% [facility] ChemAutoSS CHEMISTRYOrdered By: Honey Morris on 09-23-2023 U Creatinine mg/dL Invalid Interpretation Code Remisol Chem U Prot/Creat Ratio NOT CALCULATED Invalid Interpretation Code 0.00 - 200.00 Remisol Chem Ur Total Protein mg/dL Invalid Interpretation Code Remisol Chem CMPon 09-23-2023 Albumin [Mass/Vol] 4.1 g/dL Normal 3.3-5.0 [facility] Comment on above: Performed By: #### 2 911221, 74993208, 322150456, 4570439 ####[facility] [address] [place] [address] Albumin/Globulin [Mass ratio] 1.5 {ratio} Normal 1.1-2.2 [facility] Comment on above: Performed By: #### 2 935469, 25064446, 513187304, 9274001 ####[facility] [address] [place] [address] Alk Phos 101 Int._Unit/L High 21-98 [facility] Comment on above: Performed By: #### 2 329090, 45104519, 552749019, 9639878 ####[address] [place] [address] ALT 12 Int._Unit/L Normal 6-46 [facility] Comment on above: Performed By: #### 2 005096, 01422435, 337439386, 5131063 ####[facility] [address] [place] [address] Anion gap [Moles/Vol] 13 mmol/L Normal 6-16 [facility] Comment on above: Performed By: #### 2 247486, 36564875, 815439276, 9488928 ####[address] [place] [address] AST 12 Int._Unit/L Normal 5-43 [facility] Comment on above: Performed By: #### 2 154084, 31611795, 950435717, 0078565 ####[facility] [address] [place] [address] Bili Total 0.3 mg/dL Normal 0.0-1.1 [facility] Comment on above: Performed By: #### 2 142253, 82450870, 783154867, 5311009 ####[facility] [address] [place] [address] BUN/Creat Ratio 14 No Units Normal 10-20 [facility] Comment on above: Performed By: #### 2 435799, 24043673, 744440324, 1955336 ####[facility] [address] [place] [address] Calcium [Mass/Vol] 9.2 mg/dL Normal 8.9-11.1 [facility] Comment on above: Performed By: #### 2 952078, 61479845, 052082922, 6057262 ####[facility] [address] [place] [address] Chloride [Moles/Vol] 104 mmol/L Normal 101-111 [facility] Comment on above: Performed By: #### 2 335672, 22279172, 599108659, 6211876 ####[facility] [address] [place] [address] CO2 [Moles/Vol] 25 mmol/L Normal 21-31 [facility] Comment on above: Performed By: #### 2 515544, 80541135, 815522010, 7753417 ####[facility] [address] [place] [address] Creatinine [Mass/Vol] 0.7 mg/dL Normal 0.5-1.3 [facility] Comment on above: Performed By: #### 2 031677, 27093924, 424357693, 8635717 ####[facility] [address] [place] [address] Globulin (S) [Mass/Vol] 2.7 g/dL Normal 1.4-4.0 [facility] Comment on above: Performed By: #### 2 182192, 76692654, 988047025, 0065074 ####[facility] [address] [place] [address] Glucose [Mass/Vol] 197 mg/dL Normal 55-199 [facility] Comment on above: Performed By: #### 2 474637, 45414207, 335176837, 6808396 ####[facility] [address] [place] [address] Potassium [Moles/Vol] 4.1 mmol/L Normal 3.5-5.3 [facility] Comment on above: Performed By: #### 2 868961, 34157673, 510096064, 1434490 ####[facility] [address] [place] [address] Protein [Mass/Vol] 6.8 g/dL Normal 6.0-7.8 [facility] Comment on above: Performed By: #### 2 898878, 11973566, 493937999, 3611507 ####[facility] [address] [place] [address] Sodium [Moles/Vol] 138 mmol/L Normal 135-145 [facility] Comment on above: Performed By: #### 2 871924, 21580410, 348994896, 7940321 ####[facility] [address] [place] [address] Urea nitrogen [Mass/Vol] 10 mg/dL Normal 5-21 [facility] Comment on above: Performed By: #### 2 286596, 46727824, 375726113, 9045026 ####[facility] [address] [place] [address] HEMATOLOGYOrdered By: Juan Antonio Mascorro on 09-23-2023 Basophil Absolute 0.1 E9/L Normal 0.0 - 0.2 E9/L Rem isol Heme Basophils/100 WBC (Bld) 0.6 % Normal 0.0 - 2.0 % Remisol Heme Eos Absolute 0.3 E9/L Normal 0.0 - 0.5 E9/L Remisol Heme Eosinophils/100 WBC (Bld) 2.8 % Normal 0.0 - 8.0 % Remisol Heme Erythrocyte distribution width (RBC) [Ratio] 13.9 % Normal 10.9 - 14.2 % Remisol Heme Hematocrit (Bld) [Volume fraction] 30.0 % Low 34.0 - 46.0 % Remisol Heme Hemoglobin (Bld) [Mass/Vol] 9.8 g/dL Low 12.0 - 16.0 gm/dL Remisol Heme Lymph Absolute 2.6 E9/L Normal 1.0 - 4.0 E9/L Remiso l Heme Lymphocytes/100 WBC (Bld) 24.8 % Normal 14.0 - 50.0 % Remisol Heme MCH (RBC) [Entitic mass] 25.0 pg Low 27.0 - 34.0 pg Remisol Heme MCHC (RBC) [Mass/Vol] 32.9 g/dL Normal 31.4 - 36.0 gm/dL Remisol Heme MCV (RBC) [Entitic vol] 75.9 fL Low 80.0 - 100.0 fL Remisol Heme Latimer Absolute 0.9 E9/L Normal 0.2 - 1.0 E9/L Remisol Heme Monocytes/100 WBC (Bld) 8.2 % Normal 4.0 - 14.0 % Remisol Heme Neutro Absolute 6.7 E9/L Normal 2.0 - 7.5 E9/L Remis ol Heme Neutro Auto 63.6 % Normal 36.0 - 75.0 % Remisol He me Platelet 539.0 E9/L High 150.0 - 500.0 E9/L Remisol Heme Platelet mean volume (Bld) [Entitic vol] 7.4 fL Normal 6.4 - 10.8 fL Remisol Heme RBC 3.9 E12/L Low 4.3 - 5.9 E12/L Remisol H silvia WBC 10.6 E9/L Normal 4.0 - 11.0 E9/L Remisol H silvia WlpA9ovs 09-23-2023 HbA1c (Bld) [Mass fraction] 8.4 % High <=5.9 [facility] Comment on above: Performed By: #### 2 791588, 32745407, 224168665, 3761948 ####[facility] [address] [place] [address] U Microalbon 09-23-2023 U Microalb <2.0 Normal 0.0-19.0 [facility] Comment on above: Performed By: #### 1 [id number], 70572431 ####[facility] [address] [place] [address] U Protein/Creat Ratioon U Creatinine <10.0 Invalid Interpretation Code [facility] Comment on above: Performed By: #### 2 248720, 0957019, 39089701, 0959648, 8959192, 6994667 #### [facility] [address] [place] [address] U Prot/Creat Ratio NOT CALCULATED Invalid Interpretation Code .00-200.00 [facility] Comment on above: Performed By: #### 2 186939, 5729496, 79740531, 7522999, 2374382, 5000666 #### [facility] [address] [place] [address] Ur Total Protein <6.0 Invalid Interpretation Code [facility] Comment on above: Performed By: #### 2 918514, 3660288, 86118231, 8788503, 9470178, 6798096 #### [facility] [address] [place] [address] eGFRon 09-23-2023 eGFR 94 mL/min/1.73 m2 Normal >=59 [facility] Comment on above: Order Comment: Order added by Discern Expert. Performed By: #### 2 331787, 63928108, 355109224, 2794631 ####[facility] [address] [place] [address] Heart and Vascular Office/Cl inic Noteon 07-10-2023 Heart and Vascular Office/Clinic Note Chief Complaint f/u CHF History of Present Illness Johanna Macdonald presents today for a 4 to 6 week follow- up for CHF. She is still experiencing dyspnea and a squeezing sensation. She was concerned with what Dr. Karl Montes informed her that the side effects of Entresto is palpitations and it concerned her. She is still smoking. Dr. Montes said that she has bronchiectasis which she was diagnosed with in 2013, but Dr. Linda Martinez stated otherwise. Dr. Martinez ordered a pulmonary function test for her and a CT scan without contrast. Dr. Montes and Dr. Martinez informed her that she had COPD. She was given Z Ortiz at that time and after 1.5 to 2 weeks she waited to get better than she informed her that she needed to go to the ER. Nebulizer and Z Ortiz did not help with her condition. When she was at the ER, she states that she had bronchiectasis, double pneumonia, and fungus in her lungs Review of Systems Review of Systems Constitutional: no fever, no sweats, no weakness Skin: no rash, no lesions, no bruising/petechiae ENMT: no sore throat, no congestion, no hoarseness Respiratory: no shortness of breath, no cough, no orthopnea, no wheezing Cardiovascular: no chest pain, no palpitations, no edema Gastrointestinal: no nausea, no vomiting, no diarrhea, no GI bleeding Genitourinary: no anuria/oliguria no hematuria Musculoskeletal: no back pain, no trauma Neurologic: no headache, no dizziness, no numbness, no weakness Psychiatric: no sleeping problems, no irritability, no anxiety/depression. Heme/Lymph: no bleeding tendency, no bruising tendency Allergy/Immunologic: no recurrent infections, no impaired immunity Additional ROS info: Except as noted in the above Review of Systems and in the History of Present Illness all other systems have been reviewed and are negative or noncontributory Physical Exam Vitals & Measurements HR: 78(Peripheral) BP: 122/62 SpO2: 96% HT: 59 in HT: 151 cm WT: 68 kg WT: 149.6 lb BMI: 29.82 General: alert, no acute distress Skin: warm, dry intact Head: atraumatic, normocephalic Neck: trachea midline, no JVD, no bruit Eye: normal conjunctiva, sclera clear ENMT: oral mucosa moist Cardiovascular: regular rate and rhythm, no murmur, normal peripheral perfusion Respiratory: lungs CTA, respirations non labored. [place] lung sounds. Chest wall: no deformity. Gastrointestinal: soft, non-distended, no tenderness, no guarding. Back: no tenderness, normal ROM, normal alignment. Extremities: no edema, no deformity, no trauma Neurological: oriented x 4, LOC appropriate for age, sensation equal & normal bilaterally, speech normal Psychiatric: cooperative, affect appropriate for age, normal judgement, normal psychiatric thoughts. Assessment/Plan 1. Cardiomyopathy We will get her on a low dose of Entresto and an order for lab work in 1 week. Follow up in 4 weeks. Portions of this record may have been created with voice recognition artificial intelligence software, specifically [employer], [employer] and or Tang[employer]. Substitutions may have occurred with voice recognition and artificial intelligence software. Follow-up No qualifying data available Problem List/Past Medical History Ongoing Anemia Arthritis Asthma Blister of hand Bronchiectasis Bronchitis Chronic obstructive pulmonary disease Diabetes mellitus type II, controlled GERD with esophagitis Heart failure Hypoxemia Osteopenia Pulmonary hypertension Shoulder pain, right Steatohepatitis, non-alcoholic Systolic murmur Vitamin D deficiency Historical No qualifying data Procedure/Surgical History Cardiac catheterization (02/17/2023), Abdominal hernia, Cardiac catheter, Cholecystectomy, Colonoscopy, EGD (esophagogastroduodenos copy) and closure of duodenal fistula, Exploratory laparotomy, MELVIN BSO - Total abdominal hysterectomy and bilateral salpingo-oophorectomy. Medications albuterol-ipratropium Inh Ana Cristina 3 mL UD, 3 mL, NEB, q4hr, 3 refills amLODIPine 10 mg Tab, 10 mg= 1 tab(s), Oral, Daily, 3 refills aspirin 81 mg Oral EC Tab, 81 mg= 1 tab(s), Oral, Daily atorvastatin 80 mg Tab, 80 mg= 1 tab(s), Oral, Daily, 3 refills Breo Ellipta 200 mcg-25 mcg/inh inhalation powder, 1 puff(s), Inhalation, Daily, 5 refills Entresto 24 mg-26 mg oral tablet, 1 tab(s), Oral, BID esomeprazole 40 mg Cap-EC, 40 mg= 1 cap(s), BID furosemide 40 mg Tab, 40 mg= 1 tab(s), Oral, Daily, 3 refills isosorbide mononitrate 30 mg ER Tab, 30 mg= 1 tab(s), Oral, qAM, 3 refills metformin 500 mg Tab, 1000 mg= 2 tab(s), Oral, BID, 3 refills Misc DME Prescription nabumetone 500 mg Tab, 500 mg= 1 tab(s), Oral, BID, 2 refills nitroglycerin, See Instructions Potassium Chloride (Bfn-Baub-Emf 10) 10 mEq oral tablet, extended release, 10 mEq, Oral, Daily, 3 refills Senna Plus 50 mg-8.6 mg Tab, 1 tab(s), Oral, Daily Ventolin HFA 90 mcg/inh Aerosol-Adpt, 2 puff(s), Inhalation, q4hr, PRN, 3 refills (more content not included)... Normal [facility] Comment on above: Result Comment: Elec tronically Signed By: Lisa GUY, Petar Singh\.br\Date and Time Signed: 07/10/23 13:13 EST\.br\Electronically Co-Signed By: Kayy Farooq\.br\Date and Time Co-Signed: 05/20/23 17:55 EDT Ambulatory Visit Summaryon 1 08-24-2022 Ambulatory Visit Summary JOHANNA MACDONALD :1955 Visit Date:06/24/2023 Ambulatory Visit Instructions Your Diagnosis Fatigue Chronic obstructive pulmonary disease BMI 30.0-30.9,adult Class 1 obesity due to excess calories in adult Smoker Vitamin D deficiency Controlled type 2 diabetes mellitus without complication, without long-term current use of insulin Other iron deficiency anemia Your Care Team Attending Physician - Issac Conway MD Primary Care Physician - Issac Conway MD This Is Your Medications List cholecalciferol (Vitamin D3 5000 intl units (125 mcg) oral tab) Contact prescribing physician if questions or concerns Misc Prescription (Misc DME Prescription) albuterol (Ventolin HFA 90 mcg/inh Aerosol-Adpt) albuterol-ipratropium (DuoNeb 2.5 mg-0.5 mg/3 mL Soln-Inh) amlodipine (amLODIPine 10 mg Tab) aspirin (aspirin 81 mg Oral EC Tab) atorvastatin (atorvastatin 80 mg Tab) docusate-senna (Senna Plus 50 mg-8.6 mg Tab) esomeprazole (esomeprazole 40 mg Cap-EC) furosemide (furosemide 40 mg Tab) isosorbide mononitrate (isosorbide mononitrate 30 mg ER Tab) metformin (metformin 500 mg Tab) nabumetone (nabumetone 500 mg Tab) nitroglycerin potassium chloride (Potassium Chloride (Ecn-Aeus-Rzr 10) 10 mEq oral tablet, extended release) [Image Removed: STOP]Stop taking these medications fluticasone-vilanterol (Breo Ellipta 200 mcg-25 mcg/inh inhalation powder) iron polysaccharide (ProFe 180 mg oral capsule) sacubitril-valsartan (Entresto 24 mg-26 mg oral tablet) Procedures Performed Cardiac catheterization (02/17/2023), Abdominal hernia, Cardiac catheter, Cholecystectomy, Colonoscopy, EGD (esophagogastroduodenos copy) and closure of duodenal fistula, Exploratory laparotomy, MELVIN BSO - Total abdominal hysterectomy and bilateral salpingo-oophorectomy. Discharge Vitals Temperature (Temporal Artery) 36.8 ?C Heart Rate (Peripheral) 82 Respiratory Rate 18 Blood Pressure 116/62 Height 151 cm Height 59 in Weight 69.5 kg Weight 152.9 lb BMI 30.48 What to do next Scheduled Follow-Up Appointments 2023 1:15 PM EST With: Man GUY, Issac Sam Where: [facility] Normal [address] [id number]- \.br\ Someone Will Contact You Regarding These Appointments\.br \ [facility] External Ambulatory Referral, Endocrinology, 06/24/23 14:49:00 EST, Controlled type 2 diabetes mellitus without complication, without long-term current use of insulin\.br\ Medications\.br\ What How Much When Instructions\.br \ Unchanged cholecalciferol (Vitamin D3 5000 intl units (125 mcg) oral tab) 1 Tablets By Mouth Every day Pickup at [facility]\.br\ Unchanged albuterol (Ventolin HFA 90 mcg/ inh Aerosol-Adpt) 2 Puffs Inhalation Every 4 hours as needed for for wheezing Contact prescribing physician if questions or concerns \.br\ Unchanged albuterol-ipratr opium (DuoNeb 2.5 mg-0.5 mg/ 3 mL Soln-Inh) 3 Milliliter Inhalation 4 times a day Contact prescribing physician if questions or concerns \.br\ Unchanged amlodipine (amLODIPine 10 mg Tab) 1 Tablets By Mouth Every day Duration: 90 Days Contact prescribing physician if questions or concerns \.br\ Unchanged aspirin (aspirin 81 mg Oral EC Tab) 1 Tablets By Mouth Every day Contact prescribing physician if questions or concerns \.br\ Unchanged atorvastatin (atorvastatin 80 mg Tab) 1 Tablets By Mouth Every day Duration: 90 Days Contact prescribing physician if questions or concerns \.br\ Unchanged docusate-senna (Senna Plus 50 mg-8.6 mg Tab) 1 Tablets By Mouth Every day Contact prescribing physician if questions or concerns \.br\ Unchanged esomeprazole (esomeprazole 40 mg Cap-EC) 1 Capsules 2 times a day TAKE 1 CAPSULE BY MOUTH TWICE DAILY Contact prescribing physician if questions or concerns \.br\ Unchanged furosemide (furosemide 40 mg Tab) 1 Tablets By Mouth Every day Contact prescribing physician if questions or concerns \.br\ Unchanged isosorbide mononitrate (isosorbide mononitrate 30 mg ER Tab) 1 Tablets By Mouth Once a day (in the morning) Duration: 90 Days Contact prescribing physician if questions or concerns \.br\ Unchanged metformin (metformin 500 mg Tab) 2 Tablets By Mouth 2 times a day Duration: 90 Days Contact prescribing physician if questions or concerns \.br\ Unchanged Misc Prescription (Misc DME Prescription) 2L of Oxygen daily however pt wears PRN Contact prescribing physician if questions or concerns \.br\ Unchanged nabumetone (nabumetone 500 mg Tab) 1 Tablets By Mouth 2 times a day when needed Contact prescribing physician if questions or concerns \.br\ Unchanged nitroglycerin See instructions 0.4 mg SubLingual as needed for chest pain Contact prescribing physician if questions or concerns \.br\ Unchanged potassium chloride (Potassium Chloride (Avk-Dujx-Vgg 10) 10 mEq oral tablet, extended release) 10 Milliequivalent By Mouth Every day Duration: 90 Days Contact prescribing physician if questions or concerns \.br\ Pharmacy Information\.br\ [facility]: [address], [place] [phone]\.br\ \.br\ What How Much When Why Comments\.br\ Stop Taking fluticasone-suzanna nterol (Breo Ellipta 200 mcg-25 mcg/ inh inhalation powder) 1 Puffs Inhalation Every day COPD without exacerbation Duration: 30 Days\.br\ Stop Taking iron polysaccharide (ProFe 180 mg oral capsule) 1 Capsules By Mouth Every day\.br\ Stop Taking sacubitril-valsa rtan (Entresto 24 mg-26 mg oral tablet) 1 Tablets By Mouth 2 times a day\.br\ Medications and Immunizations Administered\.br \ Not Given\.br\ influenza virus vaccine, inactivated, Patient Refuses\.br\ Allergies\.br\ Biaxin (Unknown)\.br\ Cipro (Unknown)\.br\ Keflex (Unknown)\.br\ amoxicillin (Unknown)\.br\ atenolol (Unknown)\.br\ doxycycline (Unknown)\.br\ sulfa drugs (Unknown)\.br\ Problems\.br\ Ongoing - Any problem that you are currently receiving treatment for.\.br\ Arthritis\.br\ Asthma\.br\ Blister of hand\.br\ Bronchiectasis\. br\ Bronchitis\.br\ Chronic obstructive pulmonary disease\.br\ Chronic respiratory failure with hypoxia\.br\ Chronic systolic heart failure\.br\ Controlled type 2 diabetes mellitus without complication, without long-term current use of insulin\.br\ Fatigue\.br\ GERD with esophagitis\.br\ Heart failure\.br\ Hypoxemia\.br\ Osteopenia\.br\ Other iron deficiency anemia\.br\ Pulmonary hypertension\.br \ Shoulder pain, right\.br\ Steatohepatitis, non-alcoholic\.b r\ Systolic murmur\.br\ Thrombocytosis\. br\ Vitamin D deficiency\.br\ Patient Survey\.br\ You may receive a survey via text or e-mail asking about your office visit. Please share your experience with us by completing your survey. We appreciate your feedback and thank you for choosing us for your care.\.br\ \.br\ [facility] Office/Clini c Noteon 06-24-2023 Family Medicine Office/Clinic Note HPI Staff Johanna is a 68 year old female presenting for one month follow up copd and fatigue Patient is here for follow up on COPD: Feeling controlled on medication:c/o hard time breathing today Need medication refilled: not for the copd Do you use O2? yes 2L during day and night flu: refused questions/concerns: wants the vit D gel cap refilled Lost name and number of endo you wanted her to see Not taking the iron it makes her sick History of Present Illness - Here for 1 month follow up on labs. Physical Exam Vitals & Measurements T: 36.8 ?C(Temporal Artery) HR: 82(Peripheral) RR: 18 BP: 116/62 SpO2: 98% HT: 59 in HT: 151 cm WT: 69.5 kg WT: 152.9 lb BMI: 30.48 General: alert, no acute distress ENMT: oral mucosa moist, Cardiovascular: regular rate and rhythm, normal peripheral perfusion Respiratory: Lungs expiratory wheezes, respirations non labored Extremities: no deformity, no trauma Neurological: oriented x 4, LOC appropriate for age, CN II-XII intact, motor strength equal & normal bilaterally, speech normal Abdomen: Soft, Nontender, Non-distended, + BS Assessment/Plan 1. Fatigue (R53.83: Other fatigue) - Will check iron and Vitamin D levels - Will adjust meds as needed Ordered: Body Mass Index (BMI) documented 3008F Current tobacco smoker 1034F Depression Screening Negative 3352F Influenza immunization status assessed 1030F Iron Level Most recent diastolic blood pressure <80 mm Hg 3078F Patient screen for fall risk: no falls in last year or 1 fall with no injury in last year 1101F Systolic BP <130 mm Hg (Most Recent) 3074F Vitamin D 25 Hydroxy 2. Chronic obstructive pulmonary disease (J44.9: Chronic obstructive pulmonary disease, unspecified) - Wheezing today. - Encouraged smoking cessation. - Pt is not interested Ordered: Body Mass Index (BMI) documented 3008F Current tobacco smoker 1034F Depression Screening Negative 3352F Influenza immunization status assessed 1030F Iron Level Most recent diastolic blood pressure <80 mm Hg 3078F Patient screen for fall risk: no falls in last year or 1 fall with no injury in last year 1101F Systolic BP <130 mm Hg (Most Recent) 3074F Vitamin D 25 Hydroxy 3. BMI 30.0-30.9,adult (Z68.30: Body mass index [BMI] 30.0-30.9, adult) - BMI education given Ordered: Body Mass Index (BMI) documented 3008F Current tobacco smoker 1034F Depression Screening Negative 3352F Influenza immunization status assessed 1030F Iron Level Most recent diastolic blood pressure <80 mm Hg 3078F Patient screen for fall risk: no falls in last year or 1 fall with no injury in last year 1101F Systolic BP <130 mm Hg (Most Recent) 3074F Vitamin D 25 Hydroxy 4. Class 1 obesity due to excess calories in adult (E66.09: Other obesity due to excess calories) - Diet and exercise advised Ordered: Body Mass Index (BMI) documented 3008F Current tobacco smoker 1034F Depression Screening Negative 3352F Influenza immunization status assessed 1030F Iron Level Most recent diastolic blood pressure <80 mm Hg 3078F Patient screen for fall risk: no falls in last year or 1 fall with no injury in last year 1101F Systolic BP <130 mm Hg (Most Recent) 3074F Vitamin D 25 Hydroxy 5. Smoker (F17.200: Nicotine dependence, unspecified, uncomplicated) - Please stop smoking Ordered: Body Mass Index (BMI) documented 3008F Current tobacco smoker 1034F Depression Screening Negative 3352F Influenza immunization status assessed 1030F Iron Level Most recent diastolic blood pressure <80 mm Hg 3078F Patient screen for fall risk: no falls in last year or 1 fall with no injury in last year 1101F Systolic BP <130 mm Hg (Most Recent) 3074F Vitamin D 25 Hydroxy 6. Vitamin D deficiency (E55.9: Vitamin D deficiency, unspecified) - Will check labs today Ordered: Iron Level Vitamin D 25 Hydroxy 7. Controlled type 2 diabetes mellitus without complication, without long-term current use of insulin (E11.9: Type 2 diabetes mellitus without complications) - Will send to [facility] as pt is not controlled. - Continue on meds as before - Diet and exercise advised. Ordered: [facility] External Ambulatory Referral Iron Level Vitamin D 25 Hydroxy 8. Other iron deficiency anemia (D50.8: Other iron deficiency anemias) - Will check iron levels and do an infusion as needed Ordered: Iron Level Vitamin D 25 Hydroxy Orders: cholecalciferol, 125 mcg = 1 tab(s), Oral, Daily, # 90 tab(s), Refills(s) 0, Pharmacy: [facility], 151, cm, 06/24/23 14:25:00 EST, Height/Length Dosing, 69.5, kg, 06/24/23 14:25:00 EST, Weight Dosing Follow-up No qualifying data available Problem List/Past Medical History Ongoing Arthritis Asthma Blister of hand Bronchiectasis Bronchitis Chronic obstructive pulmonary disease Chronic respiratory failure with hypoxia Chronic systolic heart failure Controlled type 2 diabetes mellitus without complic (more content not included)... Normal [facility] Comment on above: Result Comment: Elec tronically Signed By: Man GUY, Issac Morgan.br\Date and Time Signed: 06/24/23 15:01 EST Ironon 06-24-2023 Iron [Mass/Vol] 39 microgram/dL Normal 35-153 [facility] Comment on above: Performed By: #### 5 [id number] #### [facility] [address] [place] [address] Vitamin D 25 Hydroxyon 06-24 25-hydroxyvitamin D3 [Mass/Vol] 66.7 ng/mL Normal 30.0-100.0 [facility] Comment on above: Result Comment: Vit rivera D deficiency has been defined as a level of serum 25-OH vitamin D less than 20 ng/mL (1,2) by the [place] [employer] and an Endocrine Society practice guideline. The Endocrine Society further defined vitamin D insufficiency as a level between 21 and 29 ng/mL (2). 1. IOM ([place] [employer]). 2010. Dietary reference intakes for calcium and D. [place]: The National Academies Press. 2. Shashi MF, Chelly UNGER, Roberto QUINONEZ, et al. Evaluation, treatment, and prevention of vitamin D deficiency: an Endocrine Society clinical practice guideline. JCEM. 2010; 96 (7):1911-30. Performed By: #### 5 [id number], [id number] ####[facility] [address] [place] [address] Heart and Vascular Office/Cl in Noteon 06-14-2023 Heart and Vascular Office/Clinic Note Chief Complaint CHF History of Present Illness Johanna Macdonald presents today for an evaluation. The patient has a history of cardiac catheterization, stress test, stents, and echocardiogram. She has a history of heart failure and diabetes. She states that she feels tired and drained all the time. She notes that her A1c is elevated, and she still has squeezing in her chest. She was told that her heart was only pumping 40 percent. She will start on Breo Ellipta inhaler, and she will not be able to pick it up until 04/28/2023. She denies starting Farxiga or Entresto. She states that she has heard too many bad side effects with Entresto. She denies being on Coreg or metoprolol. She is allergic to ATENOLOL, DOXYCYCLINE, BIAXIN, KEFLEX, CIPROFLOXACIN, AMOXICILLIN, and SULFA DRUGS. She states that years ago, Dr. Man Alonso gave her atenolol and her throat started closing up. She notes that she had to quinn to the ER and was given an injection to open it. She states that Dr. Alonso had a medical student with him at the time and he told her that he had never heard of either. She notes that she has allergic conditions. She states that she is willing to go to an legal support specialist. She notes that she has not heard of losartan. She states that she got another 1 blockage wherever in the heart at 50 percent. The patient states that her brother had part of his lung removed due to cancer. She notes that her brother had open heart surgery a few years ago. She states that he has an aneurysm in his heart and still has cancer. Review of Systems PHQ Score Initial Depression Screen Score: 0 Constitutional: no fever, no chills, no weakness, no fatigue Respiratory: no shortness of breath, no cough, no orthopnea, no wheezing Cardiovascular: no chest pain, no palpitations, no edema Neuro: no dizziness, no lightheadedness, no syncope Additional ROS info: Except as noted in the above Review of Systems and in the History of Present Illness all other systems have been reviewed and are negative or noncontributory. Physical Exam Vitals & Measurements HR: 81(Peripheral) BP: 122/58 SpO2: 97% HT: 59 in HT: 151 cm WT: 69.2 kg WT: 152.24 lb BMI: 30.35 General: alert, no acute distress Neck: Trachea midline, no JVD, no bruit Cardiovascular: regular rate and rhythm, no murmur, normal peripheral perfusion Respiratory: Lungs CTA, respirations non labored Extremities: no edema, no deformity, no trauma Neurological: oriented x 4, LOC appropriate for age, sensation equal & normal bilaterally, speech normal Skin: warm, dry intact Assessment/Plan 1. Chronic combined systolic (congestive) and diastolic (congestive) heart failure (I50.42: Chronic combined systolic (congestive) and diastolic (congestive) heart failure) We will start the patient on losartan. Allergies. We will refer the patient to an legal support specialist. Follow up in 4 to 6 weeks. Portions of this record may have been created with voice recognition artificial intelligence software, specifically [employer], [employer] and or Tangled. Substitutions may have occurred with voice recognition and artificial intelligence software. ATTESTATION: Documentation services were performed after patient or guardian consented to allow Sandra Perales to record this visit. KENNETH loan servicing specialist and provider reviewed before signing. KENNETH: Vamshijoe Harman Follow-up No qualifying data available Problem List/Past Medical History Ongoing Anemia Arthritis Asthma Blister of hand Bronchiectasis Bronchitis Chronic obstructive pulmonary disease Diabetes mellitus type II, controlled GERD with esophagitis Heart failure Hypoxemia Osteopenia Pulmonary hypertension Steatohepatitis, non-alcoholic Systolic murmur Vitamin D deficiency Vitamin D deficiency Historical No qualifying data Procedure/Surgical History Cardiac catheterization (02/17/2023), Abdominal hernia, Cardiac catheter, Cholecystectomy, Colonoscopy, EGD (esophagogastroduodenos copy) and closure of duodenal fistula, Exploratory laparotomy, MELVIN BSO - Total abdominal hysterectomy and bilateral salpingo-oophorectomy. Medications albuterol-ipratropium Inh Ana Cristina 3 mL UD, 3 mL, NEB, q4hr, 3 refills amLODIPine 10 mg Tab, 10 mg= 1 tab(s), Oral, Daily, 3 refills aspirin 81 mg Oral EC Tab, 81 mg= 1 tab(s), Oral, Daily atorvastatin 80 mg Tab, 80 mg= 1 tab(s), Oral, Daily, 3 refills Breo Ellipta 200 mcg-25 mcg/inh inhalation powder, 1 puff(s), Inhalation, Daily, 5 refills esomeprazole 40 mg Cap-EC, 40 mg= 1 cap(s), BID furosemide 40 mg Tab, 40 mg= 1 tab(s), Oral, Daily, 3 refills isosorbide mononitrate 30 mg ER Tab, 30 mg= 1 tab(s), Oral, qAM, 3 refills metformin 500 mg Tab, 500 mg= 1 tab(s), Oral, TID, 3 refills Misc DME Prescription nabumetone 500 mg Tab, 500 mg= 1 tab(s), Oral, BID, 2 refills nitroglycerin, See Instructions Potassium Chloride (Tvk-Hvmq-Pnk 10) 10 mEq oral tablet, extended release, 10 mEq, O (more content not included)... Normal [facility] Comment on above: Result Comment: Elec tronically Signed By: Lisa GUY, Petar Singh\.br\Date and Time Signed: 06/14/23 11:48 EDT\.br\Electronically Co-Signed By: Enrique Hammer\.br\Date and Time Co-Signed: 04/15/23 16:22 EDT Physician Referralon 023 Physician Referral [id number] [phone] [id number]#[id number] TIFF Deny Argueta [facility] Ambulatory Visit Summaryon 1 Ambulatory Visit Summary JOHANNA MACDONALD :1955 Visit Date:05/24/2023 Ambulatory Visit Instructions Your Diagnosis Chronic obstructive pulmonary disease Diabetes mellitus type II, controlled Chronic respiratory failure with hypoxia Anemia Chronic systolic heart failure BMI 30.0-30.9,adult Smoker Fatigue Your Care Team Attending Physician - Issac Conway MD Primary Care Physician - Issac Conway MD This Is Your Medications List albuterol-ipratropium (DuoNeb 2.5 mg-0.5 mg/3 mL Soln-Inh) Contact prescribing physician if questions or concerns Misc Prescription (Misc DME Prescription) albuterol (Ventolin HFA 90 mcg/inh Aerosol-Adpt) amlodipine (amLODIPine 10 mg Tab) aspirin (aspirin 81 mg Oral EC Tab) atorvastatin (atorvastatin 80 mg Tab) cholecalciferol (Vitamin D3 5000 intl units (125 mcg) oral tab) docusate-senna (Senna Plus 50 mg-8.6 mg Tab) esomeprazole (esomeprazole 40 mg Cap-EC) fluticasone-vilanterol (Breo Ellipta 200 mcg-25 mcg/inh inhalation powder) furosemide (furosemide 40 mg Tab) isosorbide mononitrate (isosorbide mononitrate 30 mg ER Tab) metformin (metformin 500 mg Tab) nabumetone (nabumetone 500 mg Tab) nitroglycerin potassium chloride (Potassium Chloride (Rzy-Gkcc-Hsm 10) 10 mEq oral tablet, extended release) sacubitril-valsartan (Entresto 24 mg-26 mg oral tablet) Procedures Performed Cardiac catheterization (02/17/2023), Abdominal hernia, Cardiac catheter, Cholecystectomy, Colonoscopy, EGD (esophagogastroduodenos copy) and closure of duodenal fistula, Exploratory laparotomy, MELVIN BSO - Total abdominal hysterectomy and bilateral salpingo-oophorectomy. Discharge Vitals Heart Rate (Peripheral) 74 Respiratory Rate 22 Blood Pressure 110/58 Height 151 cm Height 59 in Weight 69.1 kg Weight 152.02 lb BMI 30.31 What to do next Scheduled Follow-Up Appointments 2022 2:45 PM EDT With: Lisa GUY, Petar Singh Where: [facility] 2022 2:20 PM EST With: Issac Conway MD Where: [facility] Invalid Interpretation Code [address] [place] [address]- \.br\ Someone Will Contact You Regarding These Appointments\.br \ [facility] External Ambulatory Referral, Endocrinology, 05/24/23 15:32:00 EDT, Chronic obstructive pulmonary disease [facility] Auto Diffon 05-24-2023 Basophils/100 WBC (Bld) 0.4 % Normal 0.0-2.0 [facility] Comment on above: Order Comment: Order Added by Discern Expert. Performed By: #### 2 644517, 6226354, 41598592, 2473930, 2405899, 4240452 #### [facility] [address] [place] [address] Basophils/Leukocyte s Auto (Bld) [Pure # fraction] 0.0 E9/L Normal 0.0-0.2 [facility] Comment on above: Order Comment: Order Added by Discern Expert. Performed By: #### 2 949359, 1838401, 15052229, 4987544, 5020015, 2538629 #### [facility] [address] [place] [address] Eosinophils/100 WBC (Bld) 3.2 % Normal 0.0-8.0 [facility] Comment on above: Order Comment: Order Added by Discern Expert. Performed By: #### 2 612052, 2460486, 90884005, 8385082, 1466015, 2619769 #### [facility] [address] [place] [address] Eosinophils/Leukocy marry Auto (Bld) [Pure # fraction] 0.3 E9/L Normal 0.0-0.5 [facility] Comment on above: Order Comment: Order Added by Discern Expert. Performed By: #### 2 917142, 5164629, 02371195, 4259081, 1602448, 3192372 #### [facility] [address] [place] [address] Lymphocytes/100 WBC (Bld) 33.5 % Normal 14.0-50.0 [facility] Comment on above: Order Comment: Order Added by Discern Expert. Performed By: #### 2 146849, 6123933, 83759674, 7125272, 7098785, 4228804 #### [facility] [address] [place] [address] Lymphocytes/Leukocy marry Auto (Bld) [Pure # fraction] 3.1 E9/L Normal 1.0-4.0 [facility] Comment on above: Order Comment: Order Added by Discern Expert. Performed By: #### 2 062881, 9065709, 84468258, 5836492, 6613602, 6668328 #### [facility] [address] [place] [address] Monocytes/100 WBC (Bld) 8.5 % Normal 4.0-14.0 [facility] Comment on above: Order Comment: Order Added by Discern Expert. Performed By: #### 2 896381, 2744110, 37516327, 5218826, 4895324, 9504704 #### [facility] [address] [place] [address] Monocytes/Leukocyte s Auto (Bld) [Pure # fraction] 0.8 E9/L Normal 0.2-1.0 [facility] Comment on above: Order Comment: Order Added by Discern Expert. Performed By: #### 2 205178, 8169267, 51679021, 0638477, 7214754, 0656885 #### [facility] [address] [place] [address] Neutrophils/100 WBC (Bld) 54.4 % Normal 36.0-75.0 [facility] Comment on above: Order Comment: Order Added by Discern Expert. Performed By: #### 2 011151, 3896224, 39423948, 1134399, 6186489, 5852236 #### [facility] [address] [place] [address] Neutrophils/Leukocy marry Auto (Bld) [Pure # fraction] 5.1 E9/L Normal 2.0-7.5 [facility] Comment on above: Order Comment: Order Added by Discern Expert. Performed By: #### 2 867436, 5399672, 26666382, 6959860, 2661399, 1301496 #### [facility] [address] [place] [address] BNPon 05-24-2023 Int Ctr BNP Pass Normal [facility] Comment on above: Performed By: #### 2 717958, 0732113, 81517445, 0293391, 3267237, 3741606 #### [facility] [address] [place] [address] Natriuretic peptide B (Bld) [Mass/Vol] 118 pg/mL High 5-80 [facility] Comment on above: Performed By: #### 2 756723, 1126248, 02198848, 8626944, 3848488, 3337650 #### [facility] [address] [place] [address] CBC w/ Auto Diffon Erythrocyte distribution width (RBC) [Ratio] 14.4 % High 10.9-14.2 [facility] Comment on above: Performed By: #### 2 139346, 9887872, 32523871, 3241903, 0481147, 1351453 #### [facility] [address] [place] [address] Hematocrit (Bld) [Volume fraction] 35.3 % Normal 34.0-46.0 [facility] Comment on above: Performed By: #### 2 383371, 8136304, 26742522, 8862007, 3382461, 2232817 #### [facility] [address] [place] [address] Hemoglobin (Bld) [Mass/Vol] 11.9 g/dL Low 12.0-16.0 [facility] Comment on above: Performed By: #### 2 934138, 0139577, 98539487, 3096338, 9398119, 0625006 #### [facility] [address] [place] [address] MCH (RBC) [Entitic mass] 26.2 pg Low 27.0-34.0 [facility] Comment on above: Performed By: #### 2 612245, 9317368, 90193215, 5289610, 3518323, 7275515 #### [facility] [address] [place], [place] [address] MCHC (RBC) [Mass/Vol] 33.7 g/dL Normal 31.4-36.0 [facility] Comment on above: Performed By: #### 2 888078, 1273162, 66626859, 7845141, 1944353, 2637848 #### [facility] [address] [place] [address] MCV (RBC) [Entitic vol] 77.7 fL Low 80.0-100.0 [facility] Comment on above: Performed By: #### 2 888111, 6316432, 24015687, 2243503, 9407938, 0703455 #### [facility] [address] [place] [address] Platelet mean volume (Bld) [Entitic vol] 7.6 fL Normal 6.4-10.8 [facility] Comment on above: Performed By: #### 2 352069, 0488913, 32807691, 5413487, 2184726, 5260758 #### [facility] [address] [place] [address] Platelets (Bld) [#/Vol] 508.0 E9/L High 150.0-500.0 [facility] Comment on above: Performed By: #### 2 807505, 4614667, 50029698, 0381930, 1567409, 5507717 #### [facility] [address] [place] [address] RBC (Bld) [#/Vol] 4.5 E12/L Normal 4.3-5.9 [facility] Comment on above: Performed By: #### 2 075335, 0916404, 30212690, 4640997, 4401510, 5745134 #### [facility] [address] [address] WBC corrected for nucl RBC Auto (Bld) [#/Vol] 9.4 E9/L Normal 4.0-11.0 [facility] Comment on above: Performed By: #### 2 645092, 6875639, 38968711, 8271231, 9346830, 8862441 #### [facility] [address] [place] [address] CMPon 05-24-2023 Albumin [Mass/Vol] 4.1 g/dL Normal 3.3-5.0 [facility] Comment on above: Performed By: #### 2 254755, 4589739, 87865150, 1326488, 0418024, 8122849 #### [facility] [address] [place] [address] Albumin/Globulin (S) [Mass conc ratio] 1.3 Normal 1.1-2.2 [facility] Comment on above: Performed By: #### 2 602061, 7373676, 06540280, 6484157, 8422605, 0999376 #### [facility] [address] [place] [address] ALP [Catalytic activity/Vol] 89 Int._Unit/L Normal 21-98 [facility] Comment on above: Performed By: #### 2 577711, 3670804, 02047461, 5676291, 8675258, 6511698 #### [facility] [address] [place] [address] ALT No additional P-5'-P [Catalytic activity/Vol] 13 Int._Unit/L Normal 6-46 [facility] Comment on above: Performed By: #### 2 263329, 9295694, 66067481, 2704153, 1745955, 8232635 #### [facility] [address] [place] [address] Anion gap [Moles/Vol] 14 mmol/L Normal 6-16 [facility] Comment on above: Performed By: #### 2 870894, 7231528, 69288982, 8961172, 9073756, 4339050 #### [facility] [address] [place] [address] AST [Catalytic activity/Vol] 15 Int._Unit/L Normal 5-43 [facility] Comment on above: Performed By: #### 2 572919, 9094592, 49286174, 3219069, 8489386, 0464788 #### [facility] [address] [place] [address] Bilirubin [Mass/Vol] 0.3 mg/dL Normal 0.0-1.1 [facility] Comment on above: Performed By: #### 2 350813, 1053390, 12687296, 9968424, 4809239, 9198841 #### [facility] [address] [place] [address] Calcium [Mass/Vol] 9.6 mg/dL Normal 8.9-11.1 [facility] Comment on above: Performed By: #### 2 577535, 9938275, 93840287, 0423831, 8616531, 5038201 #### [facility] [address] [place] [address] Chloride [Moles/Vol] 100 mmol/L Low 101-111 [facility] Comment on above: Performed By: #### 2 803092, 4643006, 80461792, 2529623, 3944048, 1253592 #### [facility] [address] [place] [address] CO2 [Moles/Vol] 25 mmol/L Normal 21-31 [facility] Comment on above: Performed By: #### 2 794739, 2227607, 00819811, 9979041, 1328323, 0498501 #### [facility] [address] [place] [address] Creatinine [Mass/Vol] 0.6 mg/dL Normal 0.5-1.3 [facility] Comment on above: Performed By: #### 2 455305, 0915162, 25058612, 3061900, 3336743, 4641833 #### [facility] [address] [place] [address] Globulin (S) [Mass/Vol] 3.2 g/dL Normal 1.4-4.0 [facility] Comment on above: Performed By: #### 2 337342, 1123119, 20977660, 3331233, 0744459, 3348933 #### [facility] [address] [place] [address] Glucose [Mass/Vol] 127 mg/dL Normal 55-199 [facility] Comment on above: Result Comment: If t his glucose result represents a fasting glucose, interpretation should refer to the following reference range: 55-99 mg/dL Performed By: #### 2 544135, 9368376, 91179990, 1942889, 7233440, 0602374 #### [facility] [address] [place] [address] Potassium [Moles/Vol] 3.6 mmol/L Normal 3.5-5.3 [facility] Comment on above: Performed By: #### 2 085329, 5172472, 91754340, 2036731, 3588798, 8142548 #### [facility] [address] [place] [address] Protein [Mass/Vol] 7.3 g/dL Normal 6.0-7.8 [facility] Comment on above: Performed By: #### 2 948635, 4712885, 49829949, 9561270, 8466265, 4869774 #### [facility] [address] [place] [address] Sodium [Moles/Vol] 135 mmol/L Normal 135-145 [facility] Comment on above: Performed By: #### 2 576264, 0457586, 35644092, 8680061, 0944821, 0257315 #### [facility] [address] [place] [address] Urea nitrogen [Mass/Vol] 9 mg/dL Normal 5-21 [facility] Comment on above: Performed By: #### 2 277480, 1452250, 13785592, 9729751, 4076239, 7570579 #### [facility] [address] [place] [address] Urea nitrogen/Creatinine [Mass ratio] 15 No Units Normal 10-20 [facility] Comment on above: Performed By: #### 2 542878, 3946949, 23768860, 4081617, 1439155, 0659384 #### [facility] [address] [place] [address] Family Medicine Office/Clini c Noteon 05-24-2023 Family Medicine Office/Clinic Note HPI Staff Johanna is a 68 year old female presenting for one month follow up dm, copd Do you have any of the following symptoms? Foot Exam: 04/20/23 Eye Exam: Has appointment in 2 days Last A1C: 03/30/23 10.1 Statin: yes Patient is here for follow up on COPD: Feeling controlled on medication: pt states hasn't started Entresto or Breo Ellipta Need medication refilled: Do you use O2? 2lpm via nasal cannula Flu due: refused questions/concerns: pt needs new Rx for oxygen supplies and stuff for nebulizer [facility] History of Present Illness Johanna Macdonald is a 68-year-old female who presents today for an evaluation. The patient states that she has not been feeling well for quite a while. Yesterday, 05/23/2023, she had a severe episode in her head which was the worst compared to her previous episodes. She described a sensation of brightness within her head, although the room did not appear to spin. Her eyes felt particularly bright, and she also experienced a sense of nausea. She expresses feeling extremely fatigued, drained, and weak. She usually wakes up early. Dr. Gonzalez assured her that her lungs were in good condition. She mentions that she has not started taking Entresto yet. She is uncertain about when she will begin taking it. She sits down at 8:30 AM, gets up and takes her stomach pill. Afterwards, she lies down until 11:00 AM when she needs to take her other medications. Review of Systems PHQ Score Initial Depression Screen Score: 0 Physical Exam Vitals & Measurements HR: 74(Peripheral) RR: 22 BP: 110/58 SpO2: 97% HT: 59 in HT: 151 cm WT: 69.1 kg WT: 152.02 lb BMI: 30.31 General: alert, no acute distress ENMT: oral mucosa moist, no pharyngeal erythema or exudate Cardiovascular: regular rate and rhythm, normal peripheral perfusion Respiratory: Patient has a wet cough. Lungs, however, are clear to auscultation bilaterally. Extremities: no deformity, no trauma Neurological: oriented x 4, LOC appropriate for age, CN II-XII intact, motor strength equal & normal bilaterally, speech normal Assessment/Plan 1. Chronic obstructive pulmonary disease (J44.9: Chronic obstructive pulmonary disease, unspecified) Patient should be following up with Dr. Martinez. The patient is asking for a refill on her oxygen supplies and nebulizers. We will do that today, but we will also reach out to Dr. Martinez's office to make sure that it is taken care of. 2. Diabetes mellitus type II, controlled (E11.9: Type 2 diabetes mellitus without complications) It is uncontrolled that will be changed. We will send it to Dr. Lopez for further help. The patient may likely need insulin at this time. 3. Chronic respiratory failure with hypoxia (J96.11: Chronic respiratory failure with hypoxia) Patient continues to be on oxygen specifically at night. Again, the patient needs to follow up with her rotary engraver. 4. Anemia (D64.9: Anemia, unspecified) We will recheck that today and make sure that the patient is not anemic and that may be the cause of her fatigue. 5. Chronic systolic heart failure (I50.22: Chronic systolic (congestive) heart failure) BNP per cardio. The patient should follow up with cardio, but at this time it is asymptomatic. 6. BMI 30.0-30.9,adult (Z68.30: Body mass index [BMI] 30.0-30.9, adult) BMI education given. 7. Smoker (F17.200: Nicotine dependence, unspecified, uncomplicated) Encouraged the patient not to smoke. 8. Fatigue (R53.83: Other fatigue) We did a COVID-19 test as the patient has been very fatigued and dizzy. This may be secondary to uncontrolled type 2 diabetes or COVID-19, but COVID-19 test was negative. Encouraged the patient to hydrate and we will recheck the patient in the next month. ATTESTATION: Portions of this record may have been created with voice recognition artificial intelligence software, specifically Presdo, Flatter World and or Tangled. Substitutions may have occurred due to the inherent limitations of voice recognition and artificial intelligence software. Documentation services were performed after patient or guardian consented to allow [employer] to record this visit. KENNETH loan servicing specialist and provider reviewed before signing. KENNETH: Shae José Follow-up No qualifying data available Patient Education BMI for Adults Problem List/Past Medical History Ongoing Anemia Arthritis Asthma Blister of hand Bronchiectasis Bronchitis Chronic obstructive pulmonary disease Chronic respiratory failure with hypoxia Chronic systolic heart failure Diabetes mellitus type II, controlled Fatigue GERD with esophagitis Heart failure Hypoxemia Osteopenia Pulmonary hypertension Shoulder pain, right Steatohepatitis, non-alcoholic Systolic murmur Vitamin D deficiency Historical No qualifying data Procedure/Surgical History Cardiac catheterization (02/17/2023), Abdominal hernia, Cardiac catheter, Cho (more content not included)... Normal [facility] Comment on above: Result Comment: Elec tronically Signed By: Issac Conway MD\.br\Date and Time Signed: 05/24/23 19:49 EDT\.br\Electronically Co-Signed By: Shae José\.br\Date and Time Co-Signed: 05/24/23 16:11 EDT [id number] 05-24-2023 HbA1c (Bld) [Mass fraction] 8.8 % High <=5.9 [facility] Comment on above: Performed By: #### 2 [id number], [id number], [id number], [id number] #### [facility] [address] [place] [address] Lipid Panelon 05-24-2023 Cholesterol [Mass/Vol] 131 mg/dL Normal 120-200 [facility] Comment on above: Performed By: #### 2 [id number], [id number], [id number], [id number], [id number], [id number] #### [facility] [address] [place] [address] Cholesterol in HDL [Mass/Vol] 32 mg/dL Invalid Interpretation Code [facility] Comment on above: Result Comment: HDL > or equal to 60 mg/dL: Low cardiovascular risk HDL < 40 mg/dL : High cardiovascular risk Performed By: #### 2 [id number], [id number], [id number], [id number], [id number], [id number] #### [facility] [address] [place] [address] Cholesterol in LDL [Mass/Vol] 56 mg/dL Normal <=129 [facility] Comment on above: Performed By: #### 2 [id number], [id number], [id number], [id number], [id number], [id number] #### [facility] [address] [place] [address] Cholesterol in VLDL [Mass/Vol] 22 mg/dL Normal 7-40 [facility] Comment on above: Performed By: #### 2 [id number], [id number], [id number], [id number], [id number], [id number] #### [facility] [address] [place] [address] Triglyceride [Mass/Vol] 109 mg/dL Normal <=149 [facility] Comment on above: Performed By: #### 2 [id number], [id number], [id number], 0877073, [id number], [id number] #### [facility] [address] [place] [address] Patient Educationon 05-24-20 Patient Education Nutrition BMI for Adults What is BMI? Body mass index (BMI) is a number that is calculated from a person's weight and height. BMI can help estimate how much of a person's weight is composed of fat. BMI does not measure body fat directly. Rather, it is an alternative to procedures that directly measure body fat, which can be difficult and expensive. BMI can help identify people who may be at higher risk for certain medical problems. What are BMI measurements used for? BMI is used as a screening tool to identify possible weight problems. It helps determine whether a person is obese, overweight, a healthy weight, or underweight. BMI is useful for: ? Identifying a weight problem that may be related to a medical condition or may increase the risk for medical problems. ? Promoting changes, such as changes in diet and exercise, to help reach a healthy weight. BMI screening can be repeated to see if these changes are working. How is BMI calculated? BMI involves measuring your weight in relation to your height. Both height and weight are measured, and the BMI is calculated from those numbers. This can be done either in [place] or metric measurements. Note that charts and online BMI calculators are available to help you find your BMI quickly and easily without having to do these calculations yourself. To calculate your BMI in [place] measurements: 1. Measure your weight in pounds (lb). 2. Multiply the number of pounds by 703. ? For example, for a person who weighs 180 lb, multiply that number by 703, which equals 126,540. 3. Measure your height in inches. Then multiply that number by itself to get a measurement called inches squared. ? For example, for a person who is 70 inches tall, the inches squared measurement is 70 inches x 70 inches, which equals 4,900 inches squared. 4. Divide the total from step 2 (number of lb x 703) by the total from step 3 (inches squared): 126,540 ? 4,900 = 25.8. This is your BMI. To calculate your BMI in metric measurements: 1. Measure your weight in kilograms (kg). 2. Measure your height in meters (m). Then multiply that number by itself to get a measurement called meters squared. ? For example, for a person who is 1.75 m tall, the meters squared measurement is 1.75 m x 1.75 m, which is equal to 3.1 meters squared. 3. Divide the number of kilograms (your weight) by the meters squared number. In this example: 70 ? 3.1 = 22.6. This is your BMI. What do the results mean? BMI charts are used to identify whether you are underweight, normal weight, overweight, or obese. The following guidelines will be used: ? Underweight: BMI less than 18.5. ? Normal weight: BMI between 18.5 and 24.9. ? Overweight: BMI between 25 and 29.9. ? Obese: BMI of 30 or above. Keep these notes in mind: ? Weight includes both fat and muscle, so someone with a muscular build, such as an athlete, may have a BMI that is higher than 24.9. In cases like these, BMI is not an accurate measure of body fat. ? To determine if excess body fat is the cause of a BMI of 25 or higher, further assessments may need to be done by a health care provider. ? BMI is usually interpreted in the same way for men and women. Where to find more information For more information about BMI, including tools to quickly calculate your BMI, go to these websites: ? Centers for Disease Control and Prevention: www.cdc.gov ? [place] [employer] Association: www.heart.org ? National Heart, Lung, and Blood [place]: www.nhlbi.nih.gov Summary ? Body mass index (BMI) is a number that is calculated from a person's weight and height. ? BMI may help estimate how much of a person's weight is composed of fat. BMI can help identify those who may be at higher risk for certain medical problems. ? BMI can be measured using [place] measurements or metric measurements. ? BMI charts are used to identify whether you are underweight, normal weight, overweight, or obese. This information is not intended to replace advice given to you by your health care provider. Make sure you discuss any questions you have with your health care provider. Document Revised: 04/24/2020 Document Reviewed: 03/01/2020 [employer] Patient Education ? 2022 [employer]. [facility] Pre-Visit Planningon 023 Pre-Visit Planning - From: Carlos A HERNANDEZ, Nhung To: Man GUY, Issac Sam; Sent: 05/21/2023 15:12:30 EDT Subject: Pre-Visit Planning Due Date/Time: 05/21/2023 15:12:00 EDT Caller Name: JOHANNA MACDONALD; Caller Number: H Vt Dr. Conway, *Based on your response below, can you please update the chronic problem list and address during this visit if appropriate?* During a pre-visit planning chart review, I noted the following documentation in the medical record: Home medications- Furosemide Problem list- Heart failure (comments show Irina Humphrey LPN documented combined systolic and diastolic) 03/17/2023 [place] [facility]- An echocardiogram showed reduced ejection fraction at 40% consistent with acute systolic heart failure and page 13 has acute systolic heart failure. Page 8 has Chronic systolic congestive heart failure Based on your medical judgment, can you further clarify the following since there is conflicting data on if systolic or combined? -Chronic systolic congestive heart failure -Chronic combined systolic and diastolic congestive heart failure -Other (please specify): I can update the problem list with your specified response if you would like. In responding to this request, please exercise your independent professional judgement. The fact that a question is asked does not imply that any particular answer is desired or expected. If you have any questions, please feel free to contact me at extension [phone]. Thank you! NIKKO Hutchinson, RN, CCM, CCDS, CCDS-O From: Issac Conway MD To: Nhung Strauss RN; Sent: 05/24/2023 13:50:17 EDT Subject: RE: Pre-Visit Planning Caller Name: JOHANNA MACDONALD; Caller Number: H Just diastolic dysfunction Normal [address] [facility] Pre-Visit Planning - From: Nhung Strauss RN To: Issac Conway MD; Sent: 05/21/2023 15:01:30 EDT Subject: Pre-Visit Planning Due Date/Time: 05/21/2023 15:01:00 EDT Caller Name: JOHANNA MACDONALD; Caller Number: H Vt Dr. Conway, *Based on your response below, can you please update the chronic problem list and address during this visit if appropriate?* During a pre-visit planning chart review, I noted the following documentation in the medical record: Home medications- 2l of oxygen daily Problem list- COPD, Bronchiectasis, Hypoxemia 03/17/2023 [place] [facility]- angina pectoris, wound seroma, page 2 she has COPD and is on home oxygen. Based on your medical judgment, can you further clarify the following? -Chronic respiratory failure with hypoxia -Other (please specify): I can update the problem list with your specified response if you would like. In responding to this request, please exercise your independent professional judgement. The fact that a question is asked does not imply that any particular answer is desired or expected. If you have any questions, please feel free to contact me at extension [phone]. Thank you! NIKKO Hutchinson, RN, CCM, CCDS, CCDS-O From: Man GUY, Issac Sam To: Carlos A HERNANDEZ, Nhung; Sent: 05/24/2023 13:49:36 EDT Subject: RE: Pre-Visit Planning Caller Name: JOHANNA MACDONALD; Caller Number: H Ok to add chronic respiratory failure Normal [address] [facility] U Microalbon 05-24-2023 Albumin DL <= 20 mg/L (U) [Mass/Vol] mg/dL Normal 0.0-19.0 [facility] Comment on above: Performed By: #### 1 [id number] ####[facility] [address] [place] [address] U Protein/Creat Ratioon Creatinine (U) [Mass/Vol] 12.5 mg/dL Invalid Interpretation Code [facility] Comment on above: Result Comment: The reference range and other method performance specifications have not been established for this test; results should be integrated into the clinical context for interpretation. Performed By: #### 1 [id number], [id number] ####[facility] [address] [place] [address] U Prot/Creat Ratio [facility] Invalid Interpretation Code .00-200.00 [facility] Comment on above: Performed By: #### 1 [id number], [id number] ####[facility] [address] [place] [address] Albumin Elph (U) [Mass fraction] <6.0 Invalid Interpretation Code [facility] Comment on above: Result Comment: The reference range and other method performance specifications have not been established for this test; results should be integrated into the clinical context for interpretation. Performed By: #### 1 [id number], [id number] ####[facility] [address] [place] [address] eGFRon 05-24-2023 GFR/1.73 sq M.predicted among non-blacks MDRD (S/P/Bld) [Vol rate/Area] 98 mL/min/1.73 m2 Normal >=59 [facility] Comment on above: Order Comment: Order added by Discern Expert. Result Comment: [place] urban kidney disease could be indicated at eGFR's of less than 60 mL/min/1.73m2. Kidney failure is indicated at less than 15 mL/min/1.73m2. Performed By: #### 2 [id number], [id number], [id number], [id number], [id number], [id number] #### [facility] [address] [place] [address] Physician Orderon 05-21-2023 Physician Order [id number] TIFF Normal [facility] Family Medicine Office/Clini c Noteon 04-28-2023 Family Medicine Office/Clinic Note HPI Staff Patient presents for one month follow up COPD, wart and labs for DM, Do you have any of the following symptoms? Foot Exam: due Eye Exam: UTD Last A1C: 10.1 on 03/30/23 Statin: atorvastatin 80mg Patient is here for follow up on COPD: Feeling controlled on medication: not really Need medication refilled: Do you use O2? yes as needed flu vaccine: refused Wart: OTC medication advised @ [facility] didn't get the medication Has a lump/bump right shoulder and she lies on that side c/o chest feels heavy History of Present Illness Johanna Macdonald is a 68-year-old female who presents today for a follow-up evaluation of diabetes. The patient's A1c is 10%. She was prescribed with metformin 3 times a day but she is currently taking metformin once a day. She wakes up at 8:30 AM to take her first stomach pill. She lays down to about an hour later so she can have coffee. She eats toast every morning and used to cook eggs at home, but now she will eat grilled chicken. She does not eat a lot of eggs now. Broccoli gives her gas just like cauliflower. She has a glucometer at home. She is smoking 1.5 packs of cigarettes a day. She has been having shortness of breath and she thinks that the treatments are not working. She has a bump on her right shoulder. She lays on her right shoulder to go to sleep. She has arthritis in her spine. 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 She has expressed a concern about experiencing the urge to urinate shortly after lying down for about 5-10 minutes on her left side to sleep, even though she had just urinated before lying down. Interestingly, this urge does not occur if she lies on her right side. She went to [place] the other day and she forgot about the number of her bowels. This has been going on for the last few days. Once that situation is done, she is fine until she gets constipated. Physical Exam Vitals & Measurements HR: 86(Peripheral) RR: 16 BP: 118/56 SpO2: 98% HT: 59 in HT: 151 cm WT: 69.0 kg WT: 151.8 lb BMI: 30.26 General: alert, no acute distress Cardiovascular: regular rate and rhythm, normal peripheral perfusion Respiratory: Wheezing noted with deep inspiration also causes cough. Wheezing is noted diffusely. Extremities: Foot exam within normal limits. Patient does have a tender nodule of the right shoulder that is tender to palpation. No erythema. Patient does have full range of motion. Neurological: oriented x 4, LOC appropriate for age, CN II-XII intact, motor strength equal & normal bilaterally, speech normal Diabetic Foot Exam Decreased Monofilament Sensation Foot: Left - Normal, Right - Normal Bunions/Foot Deformity: Left - Normal, Right - Normal Abnormal Pulse Foot: Left - Normal, Right - Normal Skin Lesions Foot: Left - Normal, Right - Normal Foot Exam Findings: Normal Assessment/Plan 1. Diabetes mellitus type II, controlled (E11.9: Type 2 diabetes mellitus without complications) We will go ahead and have the patient use her GCM and we will have the patient increase the metformin in a month. We will check the level of her blood sugars and then we will increase by adding glipizide or a GLP-1 from there. We will continue to monitor her blood sugars and be more aggressive with follow-up. 2. Chronic obstructive pulmonary disease (J44.9: Chronic obstructive pulmonary disease, unspecified) Given that the patient is starting to wheeze, we will go ahead and use a Z-Ortiz. Would use steroids, however, patient's oxygen saturation is within normal limits. Patient uses inhalers and do not with her blood sugars being elevated. We will cautiously monitor. If the shortness of breath gets worse, we will have the patient either go to the ER or patient needs to call back for possible restart of steroids. 3. Shoulder pain, right (M25.511: Pain in right shoulder) Most likely osteoarthritis, but unsure what that bump is. We will do an x-ray and we will follow up. 4. BMI 30.0-30.9,adult (Z68.30: Body mass index [BMI] 30.0-30.9, adult) BMI education given. 5. Class 1 obesity due to excess calories in adult (E66.09: Other obesity due to excess calories) As above. 6. Smoker (F17.200: Nicotine dependence, unspecified, uncomplicated) Encouraged the patient to stop smoking as the patient is still smoking 1.5 packs per day and concerned that her shortness of breath is secondary to her smoking. Portions of this record may have been created with voice recognition artificial intelligence software, specifically Presdo, [employer] and or Tangled. Substitutions may have occurred due to the inherent limitations of voice recognition and artificial intelligence software. Documentation services were performed after patient or guardian consented to allow [employer] to record this visit. KENNETH loan servicing specialist and provider reviewed before signing. KENNETH: Shae José Follow-up No qualifying data available Problem List/Past Medical History O (more content not included)... Normal [facility] Comment on above: Result Comment: Elec tronically Signed By: Issac Cnoway MD\.br\Date and Time Signed: 04/28/23 12:51 EDT\.br\Electronically Co-Signed By: Shae José\.br\Date and Time Co-Signed: 04/20/23 16:15 EDT RAD - MISCon 04-28-2023 RAD - MISC [id number] :[facility] Physician Orderon 04-16-2023 Physician Order [id number] D:127 [facility] Ambulatory Visit Summaryon 0 04-05-2023 Ambulatory Visit Summary JOHANNA MACDONALD :1955 Visit Date:04/05/2023 Ambulatory Visit Instructions Your Diagnosis COPD without exacerbation History of tobacco use Your Care Team Attending Physician - Michelle GUY, Linda Cueva Primary Care Physician - Man GUY, Issac Sam Referring Physician - NONE, XXXX This Is Your Medications [facility] ([facility] Prescription) albuterol (Ventolin HFA 90 mcg/inh Aerosol-Adpt) albuterol-ipratropium (albuterol-ipratropium Inh Ana Cristina 3 mL UD) amlodipine (amLODIPine 10 mg Tab) aspirin (aspirin 81 mg Oral EC Tab) atorvastatin (atorvastatin 80 mg Tab) cholecalciferol (Vitamin D3 5000 intl units (125 mcg) oral tab) docusate-senna (Senna Plus 50 mg-8.6 mg Tab) esomeprazole (esomeprazole 40 mg Cap-EC) fluticasone-vilanterol (Breo Ellipta 200 mcg-25 mcg/inh inhalation powder) furosemide (furosemide 40 mg Tab) isosorbide mononitrate (isosorbide mononitrate 30 mg ER Tab) metformin (metformin 500 mg Tab) nabumetone (nabumetone 500 mg Tab) nitroglycerin potassium chloride (Potassium Chloride (Jjp-Sngs-Vka 10) 10 mEq oral tablet, extended release) predniSONE (predniSONE 10 mg Tab) Procedures Performed Cardiac catheterization (02/17/2023), Abdominal hernia, Cardiac catheter, Cholecystectomy, Colonoscopy, EGD (esophagogastroduodenos copy) and closure of duodenal fistula, Exploratory laparotomy, MELVIN BSO - Total abdominal hysterectomy and bilateral salpingo-oophorectomy. Discharge Vitals Heart Rate (Peripheral) 73 Blood Pressure 134/70 Height 151 cm Height 59 in Weight 69.3 kg Weight 152.46 lb BMI 30.39 What to do next Scheduled Follow-Up Appointments 2022 2:00 PM EDT With: Lisa GUY, Petar Singh Where: [facility] [place] Wednesday 2:20 PM EDT With: Man GUY, Issac Sam Where: [facility] [place] Normal [address] [id number]- \.br\ You Need to Schedule the Following Appointments\.br \ Follow Up with Michelle GUY, Linda Cueva, PUL, TYRA When: Within 6 months\.br\ Where:\.br\ \.br\ You Need to Complete the Following\.br\ CT Chest, Low Dose Screening, *Est. 03/05/24 +/- 28 day(s), Routine, Order for future visit, Transport Mode: Ambulatory, Reason: Screening, Yes, Yes, Yes, 60, 40, Yes, ACTIVE, [id number], No, History of tobacco use, pp_set_radiology _subspecialty, Kendall Thomson\.br\ Medications\.br\ What How Much When Why Instructions\.br \ New fluticasone-suzanna nterol (Breo Ellipta 200 mcg-25 mcg/ inh inhalation powder) 1 Puffs Inhalation Every day COPD without exacerbation Duration: 30 Days Refills: 5 Pickup at [facility]\.br\ Unchanged albuterol (Ventolin HFA 90 mcg/ inh Aerosol-Adpt) 2 Puffs Inhalation Every 4 hours as needed for for wheezing\.br\ Unchanged albuterol-ipratr opium (albuterol-iprat ropium Inh Ana Cristina 3 mL UD) 3 Milliliter Nebulized inhalation (aerosol) Every 4 hours Duration: 90 Days\.br\ Unchanged amlodipine (amLODIPine 10 mg Tab) 1 Tablets By Mouth Every day Duration: 90 Days\.br\ Unchanged aspirin (aspirin 81 mg Oral EC Tab) 1 Tablets By Mouth Every day\.br\ Unchanged atorvastatin (atorvastatin 80 mg Tab) 1 Tablets By Mouth Every day Duration: 90 Days\.br\ Unchanged cholecalciferol (Vitamin D3 5000 intl units (125 mcg) oral tab) 1 Tablets By Mouth Every day\.br\ Unchanged docusate-senna (Senna Plus 50 mg-8.6 mg Tab) 1 Tablets By Mouth Every day\.br\ Unchanged esomeprazole (esomeprazole 40 mg Cap-EC) 1 Capsules 2 times a day TAKE 1 CAPSULE BY MOUTH TWICE DAILY \.br\ Unchanged furosemide (furosemide 40 mg Tab) 1 Tablets By Mouth Every day\.br\ Unchanged isosorbide mononitrate (isosorbide mononitrate 30 mg ER Tab) 1 Tablets By Mouth Once a day (in the morning) Duration: 90 Days\.br\ Unchanged metformin (metformin 500 mg Tab) 1 Tablets By Mouth 3 times a day Duration: 90 Days\.br\ Unchanged Misc Prescription (Misc DME Prescription) 2L of Oxygen daily however pt wears PRN \.br\ Unchanged nabumetone (nabumetone 500 mg Tab) 1 Tablets By Mouth 2 times a day when needed \.br\ Unchanged nitroglycerin See instructions 0.4 mg SubLingual as needed for chest pain \.br\ Unchanged potassium chloride (Potassium Chloride (Owd-Afpn-Ayx 10) 10 mEq oral tablet, extended release) 10 Milliequivalent By Mouth Every day Duration: 90 Days\.br\ Unchanged predniSONE (predniSONE 10 mg Tab) 1 Tablets By Mouth Every day 5 PO QD FOR 5 DAYS, THE 4 QD FOR 5 DAYS, THEN 3 QD FOR 5 DAYS, THEN 2 QD FOR 5 DAYS THEN 1 QD \.br\ Pharmacy Information\.br\ [id number]: [address] [place], [place] [id number] [phone]\.br\ Allergies\.br\ Biaxin (Unknown)\.br\ Cipro (Unknown)\.br\ Keflex (Unknown)\.br\ amoxicillin (Unknown)\.br\ atenolol (Unknown)\.br\ doxycycline (Unknown)\.br\ sulfa drugs (Unknown)\.br\ Problems\.br\ Ongoing - Any problem that you are currently receiving treatment for.\.br\ Anemia\.br\ Arthritis\.br\ Asthma\.br\ Blister of hand\.br\ Bronchiectasis\. br\ Bronchitis\.br\ Chronic obstructive pulmonary disease\.br\ Diabetes mellitus type II, controlled\.br\ GERD with esophagitis\.br\ Heart failure\.br\ Hypoxemia\.br\ Osteopenia\.br\ Pulmonary hypertension\.br \ Steatohepatitis, non-alcoholic\.b r\ Systolic murmur\.br\ Vitamin D deficiency\.br\ Vitamin D deficiency\.br\ \.br\ [facility] Consent for Treatmenton 03-17 Consent for Treatment [id number]#1.00C D:127 Normal [facility] Heart and Vascular Office/Cl inic Noteon 04-05-2023 Heart and Vascular Office/Clinic Note Chief Complaint testing results History of Present Illness Here to follow for underlying COPD and atelectasis. Reports that her shortness of breath has been stable and with mild exertion but varies from one day to another, chronic cough with yellowish and brownish sputum production and intermittent wheezing. She denies significant lower extremity edema or chest pain and denies significant weight changes recently. She was also told that she has heart issues and had a stent placed with a most recent echocardiogram showing an ejection fraction of 40%. Has using her nebulizer regularly at home (DuoNeb) and oxygen at night and as needed during the day. Still actively smoking about 1-1.5 PPD for 40 years. Review of Systems PHQ Score Initial Depression Screen Score: 0 Constitutional: no fever, no chills, no sweats Respiratory: as per HPI Cardiovascular: no chest pain, no palpitations, no edema Gastrointestinal: no nausea, no vomiting, no diarrhea, no GI bleeding Genitourinary: no dysuria, no hematuria, no discharge, no pain Musculoskeletal: no back pain, no trauma Neurologic: no headache, no dizziness, no numbness, no weakness Heme/Lymph: no bleeding tendency, no bruising tendency, no petechiae, no swollen nodes Additional ROS info: Except as noted in the above Review of Systems and in the History of Present Illness all other systems have been reviewed and are negative or noncontributory. Physical Exam Vitals & Measurements HR: 73(Peripheral) BP: 134/70 SpO2: 97% HT: 59 in HT: 151 cm WT: 69.3 kg WT: 152.46 lb BMI: 30.39 General: Awake and alert in no acute distress HEENT: NC, AT Neck: Supple no JVD Respiratory: Good breath sounds to both lung hinds without wheezing or crackles Cardiovascular: regular rate and rhythm, no murmurs Extremities: No edema. Procedure (03/02/2023 12:[address] Chest w/o Contrast) IMPRESSION: SMALL PATCH OF INFILTRATE/ATELECTASIS AT LEFT BASE [1] IMPRESSION: Spirometry is normal. Lung volume testing shows hyperinflation and air trapping. The lung diffusion capacity is at low normal level. Clinical and radiographic correlation is recommended. SIX-MINUTE WALK TEST At baseline, heart rate is 71, respiratory rate 18, blood pressure 129/61. Dyspnea scale is 2. Fatigue scale is 3. O2 saturation 97% on room air. After walking, heart rate is 83, respiratory rate 20, blood pressure 134/62. Dyspnea scale is 3. Fatigue scale is 3. O2 saturation is 96% on room air. IMPRESSION: The patient had no significant oxygen desaturation with activities. The patient was able to walk 800 feet which is 57% predicted. [2] Assessment/Plan 1. COPD without exacerbation (J44.9: Chronic obstructive pulmonary disease, unspecified) PFT results were reviewed and discussed with the patient. Possible mild obstructive lung disease given the presence of hyperinflation and air trapping but appears to be somewhat mild based on her PFTs and CT as well. CT scan of the chest was reviewed with minimal bronchiectasis if any. No significant emphysematous changes. Still with significant shortness of breath and I suspect that a cardiac cause is likely contributing given her underlying coronary artery disease and mildly decreased ejection fraction based on her most recent echo. I will give a trial of long-acting beta agonist with inhaled corticosteroid in the form of Breo to see if this helps with her symptoms and continue with albuterol/ipratropium nebulizers on as-needed basis. Ordered: fluticasone-vilanterol, 1 puff(s), Inhalation, Daily for 30 day(s), 1 EA, Refill(s) 5, [facility], 151, cm, 04/05/23 11:50:00 EDT, Height/Length Dosing, 69.3, kg, 04/05/23 11:50:00 EDT, Weight Dosing 2. History of tobacco use (Z87.891: Personal history of nicotine dependence) CT scan of the chest was reviewed with the patient without concerning lesions. The patient was counseled on smoking cessation and the effects of smoking on her underlying lung function and overall health status. We will proceed with low-dose CT scan of the chest after 1 year to screen for lung cancer. Ordered: CT Chest, Low Dose Screening Follow-up With When Contact Information Linda Martinez MD, PUL, TYRA Within 6 months Additional Instructions: Problem List/Past Medical History Ongoing Anemia Arthritis Asthma Blister of hand Bronchiectasis Bronchitis Chronic obstructive pulmonary disease Diabetes mellitus type II, controlled GERD with esophagitis Heart failure Hypoxemia Osteopenia Pulmonary hypertension Steatohepatitis, non-alcoholic Systolic murmur Vitamin D deficiency Vitamin D deficiency Historical No qualifying data Procedure/Surgical History Cardiac catheterization (02/17/2023), Abdominal hernia, Cardiac catheter, Cholecystectomy, Colonoscopy, EGD (esophagogastroduodenos copy) and closure of duodenal fistula, Exploratory laparotomy, MELVIN BSO - Total abdominal hysterectomy and bilateral (more content not included)... [facility] Comment on above: Result Comment: Elec tronically Signed By: Linda Martinez MD\.br\Date and Time Signed: 04/05/23 12:26 EDT Physician Orderon 04-05-2023 Physician Order [id number]#1.00C D:127 [facility] Consultation Noteon 04-03-20 Consultation Note [id number] D:127 [facility] Lab Reportson 04-03-2023 Lab Reports [id number]#1.00C D:127 [facility] Family Medicine Office/Clini c Noteon 04-01-2023 Family Medicine Office/Clinic Note Chief Complaint Follow up COPD HPI Staff patient presents for one month follow up cough/copd Patient is here for follow up on COPD: Feeling controlled on medication: not really Need medication refilled: only her Vit D Do you use O2? yes as needed mostly at night. 2L current issues/concerns: needs refills of her Vit D ( has refills under dr montes's name and pharmacy won't honor them) has a sore on bottom of foot, looks like a wart, please check and advise how to treat Review of Systems PHQ Score Initial Depression Screen Score: 2 Physical Exam Vitals & Measurements T: 36.9 ?C(Oral) HR: 96(Peripheral) RR: 20 BP: 130/64 SpO2: 95% HT: 59 in HT: 151 cm WT: 70.7 kg WT: 155.54 lb BMI: 31.01 General: alert, no acute distress ENMT: oral mucosa moist, no pharyngeal erythema or exudate Cardiovascular: regular rate and rhythm, normal peripheral perfusion Respiratory: diminished breath sounds bilaterally Extremities: no deformity, no trauma Neurological: oriented x 4, LOC appropriate for age, CN II-XII intact, motor strength equal & normal bilaterally, speech normal Skin: plantar wart noted on the bottom of her left foot Assessment/Plan 1. Chronic obstructive pulmonary disease, unspecified COPD type (J44.9: Chronic obstructive pulmonary disease, unspecified) Patient is to follow up with pulmonary this week. Encouraged them to increase her medications so she can breathe better. 2. Plantar wart (B07.0: Plantar wart) OTC medication advice. We will recheck the patient in 1 month. 3. Smoker (F17.200: Nicotine dependence, unspecified, uncomplicated) Please stop smoking. If there is anything we can do, please let us know 4. Vitamin D deficiency (E55.9: Vitamin D deficiency, unspecified) We will check that today and we will treat it as needed. 5. Diabetes mellitus type II, controlled (E11.9: Type 2 diabetes mellitus without complications) Controlled. We will recheck that today as we do not have blood work on her. 6. Class 1 obesity due to excess calories in adult (E66.09: Other obesity due to excess calories) BMI education given. 7. BMI 31.0-31.9,adult (Z68.31: Body mass index [BMI] 31.0-31.9, adult) As above. We will see the patient back in 1 month. Portions of this record may have been created with voice recognition artificial intelligence software, specifically Presdo, [employer] and or Tangled. Substitutions may have occurred due to the inherent limitations of voice recognition and artificial intelligence software. Documentation services were performed after patient or guardian consented to allow [employer] to record this visit. KENNETH loan servicing specialist and provider reviewed before signing. KENNETH: Shae José Follow-up No qualifying data available Patient Education BMI for Adults Problem List/Past Medical History Ongoing Anemia Arthritis Asthma Blister of hand Bronchiectasis Bronchitis Chronic obstructive pulmonary disease Diabetes mellitus type II, controlled GERD with esophagitis Heart failure Hypoxemia Osteopenia Pulmonary hypertension Steatohepatitis, non-alcoholic Systolic murmur Vitamin D deficiency Vitamin D deficiency Historical No qualifying data Procedure/Surgical History Cardiac catheterization (02/17/2023), Abdominal hernia, Cardiac catheter, Cholecystectomy, Colonoscopy, EGD (esophagogastroduodenos copy) and closure of duodenal fistula, Exploratory laparotomy, MELVIN BSO - Total abdominal hysterectomy and bilateral salpingo-oophorectomy. Medications albuterol-ipratropium Inh Ana Cristina 3 mL UD, 3 mL, NEB, q4hr, 3 refills amLODIPine 10 mg Tab, 10 mg= 1 tab(s), Oral, Daily, 3 refills aspirin 81 mg Oral EC Tab, 81 mg= 1 tab(s), Oral, Daily atorvastatin 80 mg Tab, 80 mg= 1 tab(s), Oral, Daily, 3 refills esomeprazole 40 mg Cap-EC, 40 mg= 1 cap(s), BID furosemide 40 mg Tab, 40 mg= 1 tab(s), Oral, Daily, 3 refills isosorbide mononitrate 30 mg ER Tab, 30 mg= 1 tab(s), Oral, qAM, 3 refills metformin 500 mg Tab, 500 mg= 1 tab(s), Oral, TID, 3 refills Misc DME Prescription nabumetone 500 mg Tab, 500 mg= 1 tab(s), Oral, BID, 2 refills nitroglycerin, See Instructions Potassium Chloride (Pvz-Srqn-Iny 10) 10 mEq oral tablet, extended release, 10 mEq, Oral, Daily, 3 refills predniSONE 10 mg Tab, 10 mg= 1 tab(s), Oral, Daily, Not taking Senna Plus 50 mg-8.6 mg Tab, 1 tab(s), Oral, Daily Ventolin HFA 90 mcg/inh Aerosol-Adpt, 2 puff(s), Inhalation, q4hr, PRN, 3 refills Vitamin D3 5000 intl units (125 mcg) oral tab, 125 mcg= 1 tab(s), Oral, Daily Allergies Biaxin (Unknown) Cipro (Unknown) Keflex (Unknown) amoxicillin (Unknown) atenolol (Unknown) doxycycline (Unknown) sulfa drugs (Unknown) Social History Alcohol - Denies Alcohol Use, 02/22/2023 Household alcohol concerns: No., 02/11/2023 Substance Abuse - Denies Substance Abuse, 01/13/2023 Household substance abuse concerns: No., 01/13/2023 Toba (more content not included)... [facility] Comment on above: Result Comment: Elec tronically Signed By: Issac Conway MD\.br\Date and Time Signed: 04/01/23 13:00 EDT\.br\Electronically Co-Signed By: Shae José\.br\Date and Time Co-Signed: 03/29/23 17:50 EDT Auth for Release of Medical Recordson 03-30-2023 Auth for Release of Medical Records [id number] D:127 [facility] Patient Educationon 03-29-20 23 Patient Education Nutrition BMI for Adults What is BMI? Body mass index (BMI) is a number that is calculated from a person's weight and height. BMI can help estimate how much of a person's weight is composed of fat. BMI does not measure body fat directly. Rather, it is an alternative to procedures that directly measure body fat, which can be difficult and expensive. BMI can help identify people who may be at higher risk for certain medical problems. What are BMI measurements used for? BMI is used as a screening tool to identify possible weight problems. It helps determine whether a person is obese, overweight, a healthy weight, or underweight. BMI is useful for: ? Identifying a weight problem that may be related to a medical condition or may increase the risk for medical problems. ? Promoting changes, such as changes in diet and exercise, to help reach a healthy weight. BMI screening can be repeated to see if these changes are working. How is BMI calculated? BMI involves measuring your weight in relation to your height. Both height and weight are measured, and the BMI is calculated from those numbers. This can be done either in [place] or metric measurements. Note that charts and online BMI calculators are available to help you find your BMI quickly and easily without having to do these calculations yourself. To calculate your BMI in [place] measurements: 1. Measure your weight in pounds (lb). 2. Multiply the number of pounds by 703. ? For example, for a person who weighs 180 lb, multiply that number by 703, which equals 126,540. 3. Measure your height in inches. Then multiply that number by itself to get a measurement called inches squared. ? For example, for a person who is 70 inches tall, the inches squared measurement is 70 inches x 70 inches, which equals 4,900 inches squared. 4. Divide the total from step 2 (number of lb x 703) by the total from step 3 (inches squared): 126,540 ? 4,900 = 25.8. This is your BMI. To calculate your BMI in metric measurements: 1. Measure your weight in kilograms (kg). 2. Measure your height in meters (m). Then multiply that number by itself to get a measurement called meters squared. ? For example, for a person who is 1.75 m tall, the meters squared measurement is 1.75 m x 1.75 m, which is equal to 3.1 meters squared. 3. Divide the number of kilograms (your weight) by the meters squared number. In this example: 70 ? 3.1 = 22.6. This is your BMI. What do the results mean? BMI charts are used to identify whether you are underweight, normal weight, overweight, or obese. The following guidelines will be used: ? Underweight: BMI less than 18.5. ? Normal weight: BMI between 18.5 and 24.9. ? Overweight: BMI between 25 and 29.9. ? Obese: BMI of 30 or above. Keep these notes in mind: ? Weight includes both fat and muscle, so someone with a muscular build, such as an athlete, may have a BMI that is higher than 24.9. In cases like these, BMI is not an accurate measure of body fat. ? To determine if excess body fat is the cause of a BMI of 25 or higher, further assessments may need to be done by a health care provider. ? BMI is usually interpreted in the same way for men and women. Where to find more information For more information about BMI, including tools to quickly calculate your BMI, go to these websites: ? Centers for Disease Control and Prevention: www.cdc.gov ? [place] [employer]: www.heart.org ? National Heart, Lung, and Blood [place]: www.nhlbi.nih.gov Summary ? Body mass index (BMI) is a number that is calculated from a person's weight and height. ? BMI may help estimate how much of a person's weight is composed of fat. BMI can help identify those who may be at higher risk for certain medical problems. ? BMI can be measured using [place] measurements or metric measurements. ? BMI charts are used to identify whether you are underweight, normal weight, overweight, or obese. This information is not intended to replace advice given to you by your health care provider. Make sure you discuss any questions you have with your health care provider. Document Revised: 04/24/2020 Document Reviewed: 03/01/2020 [employer] Patient Education ? 2022 [employer] Normal [facility] U Microalbon 03-29-2023 Albumin DL <= 20 mg/L (U) [Mass/Vol] mg/dL Normal 0.0-19.0 [facility] Comment on above: Performed By: #### 1 [id number], [id number] ####[facility] [id number] [place] [address] U Protein/Creat Ratioon 03-16 Albumin Elph (U) [Mass fraction] <6.0 Invalid Interpretation Code [facility] Comment on above: Result Comment: The reference range and other method performance specifications have not been established for this test; results should be integrated into the clinical context for interpretation. Performed By: #### 1 [id number], [id number] ####[facility] [address] [place] [address] Creatinine (U) [Mass/Vol] 23.1 mg/dL Invalid Interpretation Code [facility] Comment on above: Result Comment: The reference range and other method performance specifications have not been established for this test; results should be integrated into the clinical context for interpretation. Performed By: #### 1 [id number], [id number] ####[facility] [address] [place] [address] U Prot/Creat Ratio [facility] Invalid Interpretation Code .00-200.00 [facility] Comment on above: Performed By: #### 1 [id number] ####[facility] [address] [place] [address] Pulmonary Function Studieson 03-15-2023 Pulmonary Function Studies PULMONARY FUNCTION TEST: 03/02/2023 REFERRING PHYSICIAN: Linda Martinez M.D.; Issac Conway M.D. REASON FOR TESTING: This is a 68-year-old female, current everyday smoker, one pack a day for 51 years. Pulmonary function test is performed to evaluate for interstitial lung disease. Spirometry shows normal FEV1 at 105% predicted, forced vital capacity is normal at 99% predicted, FEV1/forced vital capacity ratio is normal at 83%. Lung volume testing shows increased total lung capacity at 119% predicted, residual volume is increased at 141% predicted. RV/total lung capacity ratio is increased at 52%. The lung diffusion capacity is low normal at 77% predicted. IMPRESSION: Spirometry is normal. Lung volume testing shows hyperinflation and air trapping. The lung diffusion capacity is at low normal level. Clinical and radiographic correlation is recommended. SIX-MINUTE WALK TEST At baseline, heart rate is 71, respiratory rate 18, blood pressure 129/61. Dyspnea scale is 2. Fatigue scale is 3. O2 saturation 97% on room air. After walking, heart rate is 83, respiratory rate 20, blood pressure 134/62. Dyspnea scale is 3. Fatigue scale is 3. O2 saturation is 96% on room air. IMPRESSION: The patient had no significant oxygen desaturation with activities. The patient was able to walk 800 feet which is 57% predicted. READ BY: Doni Hagen M.D. Dictated: 03/07/2023 [id number] Transcribed: 03/08/2023 cc:Linda Martinez M.D. cc:Issac Conway M.D. Normal [facility] Comment on above: Result Comment: Elec tronically Signed By: Doni Hagen MD\.br\Date and Time Signed: 03/15/23 21:01 EDT Pulmonary Function Testson 0 03-15-2023 Pulmonary Function Tests [id number]#[id number] D:127 Normal [facility] Pulmonary Function Tests [id number]#1.00C D:127 Normal [facility] CT Chest w/o Contraston 07- CT Chest w/o Contrast Exam Date/Time: 03/02/2023 12:03 EDT Reason for Exam: Diffuse/interstitial lung disease;Other (please specify) Report IMPRESSION: SMALL PATCH OF INFILTRATE/ATELECTASIS AT LEFT BASE EXAM: CT Chest w/o Contrast INDICATION: Shortness of breath Diffuse/interstitial lung disease TECHNIQUE: Helical CT was performed through the chest to COMPARISON: None FINDINGS Lungs: Small patch of infiltrate/atelectasis at the left base/adjacent lingula. Minimal atelectasis or fibrosis right middle lobe medially. Lungs otherwise clear. Several tiny juxtapleural nodular foci, the largest in the left upper lobe measuring 2 mm. These have benign features. No definite emphysema. Pleura: No pleural effusion or thickening. Mediastinum: Mediastinum and corie are normal. There are no pathologically enlarged lymph nodes. Vascular structures: There is no evidence for thoracic aortic aneurysm or dissection. Moderate coronary artery calcifications present Chest wall: The chest wall and lower neck are normal. Upper abdomen: The visualized portions of the upper abdomen are unremarkable. Bones: No aggressive skeletal lesions. All CT scans at this facility use dose modulation, iterative reconstruction, and/or weight based dosing when appropriate to reduce radiation dose to as low as reasonably achievable. Ordering Provider: Linda Martinez FINAL REPORT Dictated: 03/03/2023 9:15 am Richard Loving MD Signed (Electronic Signature): 03/03/2023 9:15 am Signed by: Fabienne GUY, Richard Durbin Transcribed by: LICO Technologist: DIAZ Normal [facility] Consent for Treatmenton 02-13 Consent for Treatment [id number] D:127 Normal [facility] Respiratory Therapy Noteson 03-02-2023 Respiratory Therapy Notes [id number]#[id number] D:127 Normal [facility] XR CHEST 2 Von 01-13-2023 XR CHEST 2 V Normal [facility] LIPID PROFILEon 12-21-2022 CHOL-HDL RATIO NORM SEE BELOW Normal [facility] Comment on above: Result Comment: 3.3 - 4.4 LOW RISK 4.4 - 7.1 AVERAGE RISK 7.1 - 11.0 MODERATE RISK >11.0 HIGH RISK Performed By: #### B SCOTT, LIPID ####[facility] [id number] [place] [id number]. Joo Hansen Cholesterol [Mass/Vol] 121 mg/dL Normal <=200 [facility] Comment on above: Performed By: #### B SCOTT, LIPID ####[facility] [id number] [place] [id number]. Joo Hansen Cholesterol in HDL [Mass/Vol] 36 mg/dL Critically low 40-60 [facility] Comment on above: Performed By: #### B SCOTT, LIPID ####[facility] [id number] [place] [id number]. Joo Hansen Cholesterol in LDL [Mass/Vol] 67.8 mg/dL Normal [facility] Comment on above: Performed By: #### B MP, LIPID ####[facility] [address]rxkrmr[address] [place] [id number]. Joo Hansen Cholesterol.total/C holesterol in HDL [Mass ratio] 3.4 {ratio} Normal [facility] Comment on above: Performed By: #### B MP, LIPID ####[facility] Fjxhqtggrh[address] [place] [id number]. Joo Hansen HDL NORMAL > or = 60 mg/dl - LO W CARDIOVASCULAR RISK <40 mg/dl - HIGH CARDIOVASCULAR RISK Normal [facility] Comment on above: Performed By: #### B MP, LIPID ####[facility] Ssblpxmqhq26[address] [place] [id number]. Joo Hansen LDL CALC NORMAL SEE BELOW Normal [facility] Comment on above: Result Comment: <100 mg/dl OPTIMAL 100 - 129 mg/dl NEAR OR ABOVE OPTIMAL 130 - 159 mg/dl BORDERLINE HIGH 160 - 189 mg/dl HIGH >190 mg/dl VERY HIGH Performed By: #### B MP, LIPID ####[facility] Odzxiivvjy7[address] [place] [id number]. Joo Hansen Triglyceride [Mass/Vol] 86 mg/dL Normal <=150 [facility] Comment on above: Performed By: #### B MP, LIPID ####[facility] Pevjiykbjm03[address] [place] [id number]. Joo Hansen VLDL CALC 17.2 mg/dL Normal [facility] Comment on above: Performed By: #### B MP, LIPID ####[facility] Xuxkjcekii2778 [place] [id number]. Joo Hansen PROF CHEM 8 (BAS METB)on Anion gap [Moles/Vol] 11.1 mmol/L Normal [facility] Comment on above: Performed By: #### B MP, LIPID ####[facility] Dhzpjcsjcp6[address] [place] [id number]. Joo Hansen Calcium [Mass/Vol] 9.3 mg/dL Normal 8.5-10.1 [facility] Comment on above: Performed By: #### B MP, LIPID ####[facility] Ivolegztcl2341 [place] [id number]. Joo Hansen Chloride [Moles/Vol] 102 mmol/L Normal 98-107 [facility] Comment on above: Performed By: #### B MP, LIPID ####[facility] Idmjemiqhg17[address] [place] [id number]. Joo Hansen CO2 [Moles/Vol] 29.5 mmol/L Normal 21.0-32.0 [facility] Comment on above: Performed By: #### B MP, LIPID ####[facility] Qjwalkplmy9[address] [place] [id number]. Joo Hansen Creatinine [Mass/Vol] 0.57 mg/dL Normal 0.55-1.02 [facility] Comment on above: Performed By: #### B MP, LIPID ####[facility] Ckrqiehrou2475 [place] [id number]. Joo Hansen EGFR-AF MOSOTHO >60 Normal >=60 [facility] Comment on above: Performed By: #### B MP, LIPID ####[facility] Xiqknqzopp16[address] [place] [id number]. Joo Hansen EGFR-NON AF MOSOTHO >60 Normal >=60 [facility] Comment on above: Performed By: #### B MP, LIPID ####[facility] Kohtqiwkal0562 [place] [id number]. Joo Tyrone Glucose [Mass/Vol] 224 mg/dL Critically high 74-106 [facility] Comment on above: Performed By: #### B MP, LIPID ####[facility] Prixpprlka2583 [place] [id number]. Joo Hansen Potassium [Moles/Vol] 3.6 mmol/L Normal 3.5-5.1 [facility] Comment on above: Performed By: #### B MP, LIPID ####[facility] Bghxewrxex7734 [place] [id number]. Joo Tyrone Sodium [Moles/Vol] 139 mmol/L Normal 136-145 [facility] Comment on above: Performed By: #### B MP, LIPID ####[facility] Ildfuygwrz9910 [place] [id number]. Joo Tyrone Urea nitrogen [Mass/Vol] 7.0 mg/dL Normal 7.0-18.0 [facility] Comment on above: Performed By: #### B MP, LIPID ####[facility] Bovpfmbkdh5[address] [place] [id number]. Joo Hansen Urea nitrogen/Creatinine [Mass ratio] 12.3 mg/mg Normal [facility] Comment on above: Performed By: #### B MP, LIPID ####[facility] Zrmjprlnvk[address] [place] [address]Dr. Maria De Jesusfausto Tyrone ECHOCARDIO M/2D COMPLETEon 0 11-30-2022 ECHOCARDIO M/2D COMPLETE Normal [facility] NM STRESS/REST MULTIon 10-06 NM STRESS/REST MULTI Normal [facility] FREE T3on 09-29-2022 FREE T3 2.52 pg/mlL Normal 2.18-3.98 [facility] Comment on above: Performed By: #### T TY, FT3 ####[facility] Frisafvsbj12[address] [place] [address]Dr. Maria De Jesusfausto Tyrone FREE T4on 09-29-2022 Free T4 [Mass/Vol] 1.08 ng/dL Normal 0.76-1.46 [facility] Comment on above: Performed By: #### F T4 ####[facility] Lscqauvgoj[address] [place], [place] [address]Dr. Joo Hansen TSHon 09-29-2022 TSH 0.673 uIU/mL Normal 0.358-3.740 [facility] Comment on above: Performed By: #### T TY, FT3 ####[facility] Vbhealqtnb[address] [place], [place] [address]Dr. Joo Hansen XR CHEST 2 Von 09-16-2022 XR CHEST 2 V Normal [facility] BNPon 09-15-2022 Natriuretic peptide B (Bld) [Mass/Vol] 1040.0 pg/mL Critically high <=900.0 [facility] Comment on above: Performed By: #### B AGRICULTURAL EXTENSION AGENT, BMP ####[facility] Mwakpegfrn9[address] [place] [address]Dr. Joo Hansen CBC AUTO DIFFon 09-15-2022 BASO # 0.1 103/ul Normal 0.0-0.1 [facility] Comment on above: Performed By: #### C BC ####[facility] Wdscjsccih8189 [place] [address]Dr. Joo Hansen Basophils/100 WBC (Bld) 0.7 % Normal 0.2-2.0 [facility] Comment on above: Performed By: #### C BC ####[facility] Pgbtgengmc8069 [place] [address]Dr. Joo Hansen EO # 0.1 103/ul Normal 0.0-0.7 [facility] Comment on above: Performed By: #### C BC ####[facility] Fgnwrossji9435 [place] [address]Dr. Joo Hansen Eosinophils/100 WBC (Bld) 1.2 % Normal 0.9-7.0 [facility] Comment on above: Performed By: #### C BC ####[facility] Ehyhuouthc2937 [place] [address]Dr. Joo Hansen Erythrocyte distribution width (RBC) [Ratio] 16.3 % Critically high 11.0-15.0 [facility] Comment on above: Performed By: #### C BC ####[facility] Xykitpfuud94[address] [place], [place] [address]Dr. Joo Hansen Hematocrit (Bld) [Volume fraction] 37.8 % Normal 36.0-48.0 [facility] Comment on above: Performed By: #### C BC ####[facility] Gupqatkwjd206[address] [place], [place] [address]Dr. Joo Hansen Hemoglobin (Bld) [Mass/Vol] 12.4 g/dL Normal 12.0-16.0 [facility] Comment on above: Performed By: #### C BC ####[facility] Cvyecumzny[address] [place], [place] [address]Dr. Joo Hansen IG # 0.44 10e3/ul Critically high 0.00-0.03 [facility] Comment on above: Performed By: #### C BC ####[facility] Lrdnprayvt65[address] [place], [place] [address]Dr. Maria De Jesusfausto Hansen IG % 3.8 % Critically high 0.0-0.5 [facility] Comment on above: Performed By: #### C BC ####[facility] Sqjkxrdkmv57[address] [place], [place] [address]Dr. Joo Hansen LYMPH # 1.7 103/ul Normal 1.2-3.8 [facility] Comment on above: Performed By: #### C BC ####[facility] Mbhwlmtpsx0924 [place] [address]DrDonald Hansen Lymphocytes/100 WBC (Bld) 14.8 % Critically low 20.5-60.0 [facility] Comment on above: Performed By: #### C BC ####[facility] Ovbpliduzh6708 [place] [address]DrDonald Hansen MANUAL DIFF REQ NO Normal [facility] Comment on above: Performed By: #### C BC ####[facility] Tiivzodumg3053 [place] [address]DrDonald Hansen MCH (RBC) [Entitic mass] 27.4 pg Normal 26.7-34.0 [facility] Comment on above: Performed By: #### C BC ####[facility] Rrsaznmwvz[address] [place], [place] [address]Dr. Joo Hansen MCHC (RBC) [Mass/Vol] 32.8 g/dL Normal 29.9-35.2 [facility] Comment on above: Performed By: #### C BC ####[facility] Iiulcpikyp32[address] [place], [place] [address]DrDonald Hansen MCV (RBC) [Entitic vol] 83.4 fL Normal 81.0-99.0 [facility] Comment on above: Performed By: #### C BC ####[facility] Afqewmxsvz22[address] [place], [place] [address]DrDonald Hansen MONO # 0.7 103/ul Normal 0.3-0.8 [facility] Comment on above: Performed By: #### C BC ####[facility] Flimfetxtr[address] [place], [place] [address]DrDonald Hansen Monocytes/100 WBC (Bld) 6.2 % Normal 1.7-12.0 [facility] Comment on above: Performed By: #### C BC ####[facility] Zuqfbvcpaa30[address] [place], [place] [address]DrDonald Hansen NEUT # 8.4 103/ul Critically high 1.4-6.5 [facility] Comment on above: Performed By: #### C BC ####[facility] Qcalkewhyn[address] [place] [address]Dr. Joo Hansne Neutrophils/100 WBC (Bld) 73.3 % Normal 43.0-75.0 [facility] Comment on above: Performed By: #### C BC ####[facility] Rwwxkggllh0562 [place] [address]Dr. Joo Hansen Platelet mean volume (Bld) [Entitic vol] 9.2 fL Critically low 9.5-13.5 [facility] Comment on above: Performed By: #### C BC ####[facility] Rpwtvmehkd7658 [place] [address]Dr. Joo Hansen PLT 262 103/ul Normal 150-450 [facility] Comment on above: Performed By: #### C BC ####[facility] Jmdlifbloe7834 [place] [address]Dr. Joo Hansen RBC 4.53 106/ul Normal 4.20-5.40 [facility] Comment on above: Performed By: #### C BC ####[facility] Plujqgmptf6384 [place] [id number] Hansen WBC 11.5 103/ul Critically high 4.0-11.0 [facility] Comment on above: Performed By: #### C BC ####[facility] Moxrusspob4102 [place] [id number] Hansen PROF CHEM 8 (BAS METB)on Anion gap [Moles/Vol] 14.3 mmol/L Normal [facility] Comment on above: Performed By: #### B AGRICULTURAL EXTENSION AGENT, BMP ####[facility] Zhbguejyzy4272 [place] [address]DrDonald Hansen Calcium [Mass/Vol] 8.5 mg/dL Normal 8.5-10.1 [facility] Comment on above: Performed By: #### B AGRICULTURAL EXTENSION AGENT, BMP ####[facility] Ncmxohiyzz4273 [place] [id number]. Joo Hansen Chloride [Moles/Vol] 98 mmol/L Normal 98-107 [facility] Comment on above: Performed By: #### B AGRICULTURAL EXTENSION AGENT, BMP ####[facility] Xzzijhrhnj89[address] [place], [place] [address]Dr. Maria De Jesusfausto Tyrone CO2 [Moles/Vol] 25.6 mmol/L Normal 21.0-32.0 [facility] Comment on above: Performed By: #### B AGRICULTURAL EXTENSION AGENT, BMP ####[facility] Cjpsutvrjx[address] [place], [place] [address]Dr. Joo Hansen Creatinine [Mass/Vol] 0.54 mg/dL Critically low 0.55-1.02 [facility] Comment on above: Performed By: #### B AGRICULTURAL EXTENSION AGENT, BMP ####[facility] Bkgjwikseq65[address] [place], [place] [address]Dr. Joo Hansen EGFR-AF MOSOTHO >60 Normal >=60 [facility] Comment on above: Performed By: #### B AGRICULTURAL EXTENSION AGENT, BMP ####[facility] Uvubydcljl8935[address] [place], [place] [address]Dr. Maria De Jesusfausto Tyrone EGFR-NON AF MOSOTHO >60 Normal >=60 [facility] Comment on above: Performed By: #### B AGRICULTURAL EXTENSION AGENT, BMP ####[facility] Dquuhtbhvc9367[address] [place], [place] [address]Dr. Joo Hansen Glucose [Mass/Vol] 495 mg/dL Critically high 74-106 [facility] Comment on above: Performed By: #### B AGRICULTURAL EXTENSION AGENT, BMP ####[facility] Pisondfrjl6623[address] [place], [place] [address]Dr. Joo Hansen Potassium [Moles/Vol] 3.9 mmol/L Normal 3.5-5.1 [facility] Comment on above: Performed By: #### B AGRICULTURAL EXTENSION AGENT, BMP ####[facility] Jtzryuyjgb355[address] [place], [place] [address]Dr. Joo Hansen Sodium [Moles/Vol] 134 mmol/L Critically low 136-145 Th [facility] Comment on above: Performed By: #### B AGRICULTURAL EXTENSION AGENT, BMP ####[facility] Iybrdvrdlh332[address] [place], [place] [address]Dr. Joo Hansen Urea nitrogen [Mass/Vol] 10.0 mg/dL Normal 7.0-18.0 [facility] Comment on above: Performed By: #### B AGRICULTURAL EXTENSION AGENT, BMP ####[facility] Sbnblxfumy2155[address] [place], [place] [address]Dr. Joo Hansen Urea nitrogen/Creatinine [Mass ratio] 18.5 mg/mg Normal [facility] Comment on above: Performed By: #### B AGRICULTURAL EXTENSION AGENT, BMP ####[facility] Coopejwuzz[address] [place], [place] [address]Dr. Joo Hansen BNPon 09-02-2022 Natriuretic peptide B (Bld) [Mass/Vol] 1651.0 pg/mL Critically high <=900.0 [facility] Comment on above: Performed By: #### B AGRICULTURAL EXTENSION AGENT, BMP ####[facility] Zgtzmjhbep9418[address] [place], [place] [address]Dr. Joo Hansen CBC W MANUAL DIFFon 09-02-19 ANISOCYTOSIS 1+ Normal [facility] Comment on above: Performed By: #### C BCYOGESH ####[facility] Ncjipggrhk6[address] [place], [place] [address]Dr. Joo Hansen ATYPICAL LYMPH # Normal [facility] Comment on above: Performed By: #### C BCYOGESH ####[facility] Veaquaqwmd23[address] [place], [place] [address]Dr. Joo Hansen ATYPICAL LYMPH % Normal [facility] Comment on above: Performed By: #### C BCYOGESH ####[facility] Rtrgsawhzx034[address] [place], [place] [address]Dr. Maria De Jesusfausto Tyrone BAND # 0.1 103/ul Normal 0.0-0.3 [facility] Comment on above: Performed By: #### C BCMAN ####[facility] Cwqdcdgqui[address] [place], [place] [address]Dr. Maria De Jesusfausto Tyrone BAND % 1 % Normal 0-5 [facility] Comment on above: Performed By: #### C BCMAN ####[facility] Yrkciirdri0[address] [place], [place] [address]Dr. Joo Hansen BASOM # 0.00 103/ul Normal 0.00-0.10 [facility] Comment on above: Performed By: #### C BCMAN ####[facility] Htuxtuwvpf8183 [place] [address]Dr. Joo Hansen BASOM % 0.0 % Critically low 0.2-2.0 [facility] Comment on above: Performed By: #### C BCMAN ####[facility] Jpsjholgsp1390 [place] [address]Dr. Joo Hansen BLAST # Normal [facility] Comment on above: Performed By: #### C BCMAN ####[facility] Vcwpojvojp7094 [place] [address]Dr. Joo Hansen BLAST % Normal [facility] Comment on above: Performed By: #### C BCYOGESH ####[facility] Hawhqsfxqn95[address] [place], [place] [address]Dr. Joo Hansen KATERIN CELLS 1+ Normal [facility] Comment on above: Performed By: #### C BCYOGESH ####[facility] Nzmwtuwcvx8[address] [place], [place] [address]Dr. Joo Hansen CORRECTED WBC Normal 4.0-11.0 [facility] Comment on above: Performed By: #### C BCYOGESH ####[facility] Sfaidweblx07[address] [place], [place] [address]Dr. Joo Hansen EOS # 0.00 103/ul Normal 0.00-0.70 [facility] Comment on above: Performed By: #### C BCMAN ####[facility] Tzezdloycg[address] [place], [place] [address]Dr. Joo Hansen EOS% 0.0 % Critically low 0.9-7.0 [facility] Comment on above: Performed By: #### C BCMAN ####[facility] Gbmrnkihnz23[address] [place], [place] [address]Dr. Joo Hansen HCT 34.4 % Critically low 36.0-48.0 [facility] Comment on above: Performed By: #### C BCMAN ####[facility] Iodxvfmcix9[address] [place], [place] [address]Dr. Joo Hansen HGB 11.6 g/dl Critically low 12.0-16.0 [facility] Comment on above: Performed By: #### C GALILEA ####[facility] Tykxkvjvks6324 [place] [address]Dr. Joo Hansen LYMPHM # 0.68 103/ul Critically low 1.20-3.80 [facility] Comment on above: Performed By: #### C GALILEA ####[facility] Wlxtbsuupv4271 [place] [address]Dr. Joo Hansen LYMPHM% 6.0 % Critically low 20.5-60.0 [facility] Comment on above: Performed By: #### C GALILEA ####[facility] Mimizhckxd9110 [place] [address]Dr. Joo Hansen MCH 27.4 pg Normal 26.7-34.0 [facility] Comment on above: Performed By: #### Trish CALERO ####[facility] Seybffwjdj[address] [place] [address]Dr. Joo Hansen MCHC 33.7 g/dl Normal 29.9-35.2 [facility] Comment on above: Performed By: #### Trish CALERO ####[facility] Nyggljxayn5714 [place] [address]Dr. Joo Hansen MCV 81.3 fL Normal 81.0-99.0 [facility] Comment on above: Performed By: #### C GALILEA ####[facility] Vxxgjpovyq9140 [place] [address]Dr. Joo Hansen METAMYELOCYTE # Normal [facility] Comment on above: Performed By: #### C GALILEA ####[facility] Dpnpfgjvko5060 [place] [id number]. Joo Hansen METAMYELOCYTE % Normal [facility] Comment on above: Performed By: #### C GALILEA ####[facility] Mrkxinchvh0677 [place] [id number]. Joo Hansen MONOM# 0.91 103/ul Critically high 0.30-0.80 [facility] Comment on above: Performed By: #### C GALILEA ####[facility] Lootlbaoei7916 [place], [place] [address]Gn. Joo Hansen MONOM% 8.0 % Normal 1.7-12.0 [facility] Comment on above: Performed By: #### C GALILEA ####[facility] Zthvcgffja5577 [place], [place] [address]Go. Joo Hansen MPV 8.8 fL Critically low 9.5-13.5 [facility] Comment on above: Performed By: #### C GALILEA ####[facility] Xzmxxeokbi0276 [place], [place] [address]Km. Joo Hansen MYELOCYTE # Normal [facility] Comment on above: Performed By: #### C GALILEA ####[facility] Ccpiuwzzoj5181 [place] [id number]. Joo Hansen MYELOCYTE % Normal [facility] Comment on above: Performed By: #### C GALILEA ####[facility] Cyeggbivmg9038 [place] [id number]. Joo Hansen NRBC Normal [facility] Comment on above: Performed By: #### C GALILEA ####[facility] Ebonglggwb3087 [place] [id number]. Joo Hansen PLT 356 103/ul Normal 150-450 [facility] Comment on above: Performed By: #### C GALILEA ####[facility] Lejrrzjofi1243 [place], [place] [address]Mm. Joo Hansen RBC 4.23 106/ul Normal 4.20-5.40 [facility] Comment on above: Performed By: #### C GALILEA ####[facility] Dzpnoekozl2428 [place], [place] [address]Zy. Joo Hansen RDW 17.2 % Critically high 11.0-15.0 [facility] Comment on above: Performed By: #### C GALILEA ####[facility] Lqjdhfgvuc6345 [place] [id number]. Joo Hansen SEG # 9.69 103/ul Critically high 1.40-6.50 [facility] Comment on above: Performed By: #### C GALILEA ####[facility] Fsjihnzxft3479 [place] [id number]. Joo Hansen SEG % 85.0 % Critically high 43.0-75.0 [facility] Comment on above: Performed By: #### C GALILEA ####[facility] Uqjoglhbpw1868 [place] [id number]. Joo Hansen WBC 11.4 103/ul Critically high 4.0-11.0 [facility] Comment on above: Performed By: #### C GALILEA ####[facility] Ndvllmcavc4706 [place] [id number]. Joo Hansen PROF CHEM 8 (BAS METB)on Anion gap [Moles/Vol] 12.9 mmol/L Normal [facility] Comment on above: Performed By: #### B AGRICULTURAL EXTENSION AGENT, BMP ####[facility] Yywrrtvpmm7464 [place] [id number]. Joo Hansen Calcium [Mass/Vol] 8.7 mg/dL Normal 8.5-10.1 [facility] Comment on above: Performed By: #### B AGRICULTURAL EXTENSION AGENT, BMP ####[facility] Iqqvkmncvh3522 [place] [id number]. Joo Hansen Chloride [Moles/Vol] 98 mmol/L Normal 98-107 [facility] Comment on above: Performed By: #### B AGRICULTURAL EXTENSION AGENT, BMP ####[facility] Snykoriruz3034 [place] [id number]. Joo Hansen CO2 [Moles/Vol] 27.0 mmol/L Normal 21.0-32.0 [facility] Comment on above: Performed By: #### B AGRICULTURAL EXTENSION AGENT, BMP ####[facility] Ziibqvtkdr7294 [place] [id number]. Joo Hansen Creatinine [Mass/Vol] 0.78 mg/dL Normal 0.55-1.02 [facility] Comment on above: Performed By: #### B AGRICULTURAL EXTENSION AGENT, BMP ####[facility] Ejsdsniozz1459 [place] [id number]. Joo Hansen EGFR-AF MOSOTHO >60 Normal >=60 [facility] Comment on above: Performed By: #### B AGRICULTURAL EXTENSION AGENT, BMP ####[facility] Hfplllgwmx2515 [place] [id number]. Maria De Jesusfausto Tyrone EGFR-NON AF MOSOTHO >60 Normal >=60 [facility] Comment on above: Performed By: #### B AGRICULTURAL EXTENSION AGENT, BMP ####[facility] Fdpoegebdh0748 [place] [id number]. Joo Hansen Glucose [Mass/Vol] 471 mg/dL Critically high 74-106 [facility] Comment on above: Performed By: #### B AGRICULTURAL EXTENSION AGENT, BMP ####[facility] Tyufiqcucv9380 [place] [id number]. Joo Hansen Potassium [Moles/Vol] 3.9 mmol/L Normal 3.5-5.1 [facility] Comment on above: Performed By: #### B AGRICULTURAL EXTENSION AGENT, BMP ####[facility] Hqntjjejud[address] [place], [place] [address]Dr. Joo Hansen Sodium [Moles/Vol] 134 mmol/L Critically low 136-145 Th [facility] Comment on above: Performed By: #### B AGRICULTURAL EXTENSION AGENT, BMP ####[facility] Zpywvvtzrz7[address] [place], [place] [address]Dr. Joo Hansen Urea nitrogen [Mass/Vol] 14.0 mg/dL Normal 7.0-18.0 [facility] Comment on above: Performed By: #### B AGRICULTURAL EXTENSION AGENT, BMP ####[facility] Rimfliahru9680 [place] [address]Dr. Joo Hansen Urea nitrogen/Creatinine [Mass ratio] 17.9 mg/mg Normal [facility] Comment on above: Performed By: #### B AGRICULTURAL EXTENSION AGENT, BMP ####[facility] Cwfarmczyd6646 [place] [id number]. Joo Hansen CBC AUTO DIFFon 08-28-2022 BASO # 0.0 103/ul Normal 0.0-0.1 [facility] Comment on above: Performed By: #### C BC ####[facility] Z[address]qxakvmnw[address] [place], [place] [address]Dr. Joo Hansen Basophils/100 WBC (Bld) 0.3 % Normal 0.2-2.0 [facility] Comment on above: Performed By: #### C BC ####[facility] Rmatecdmnn[address] [place], [place] [address]Dr. Joo Hansen EO # 0.0 103/ul Normal 0.0-0.7 [facility] Comment on above: Performed By: #### C BC ####[facility] Uphwxxvgqv[address] [place], [place] [address]Dr. Joo Hansen Eosinophils/100 WBC (Bld) 0.2 % Critically low 0.9-7.0 [facility] Comment on above: Performed By: #### C BC ####[facility] Kcpadaccrc[address] [place], [place] [address]Dr. Joo Hansen Erythrocyte distribution width (RBC) [Ratio] 17.6 % Critically high 11.0-15.0 [facility] Comment on above: Performed By: #### C BC ####[facility] Dehjhckvdp[address] [place], [place] [address]Dr. Joo Hansen Hematocrit (Bld) [Volume fraction] 35.9 % Critically low 36.0-48.0 [facility] Comment on above: Performed By: #### C BC ####[facility] Fxvuixzomg[address] [place], [place] [address]DrDonald Hansen Hemoglobin (Bld) [Mass/Vol] 11.0 g/dL Critically low 12.0-16.0 [facility] Comment on above: Performed By: #### C BC ####[facility] Zyzgfozyph6[address] [place], [place] [address]DrDonald Hansen IG # 0.18 10e3/ul Critically high 0.00-0.03 [facility] Comment on above: Performed By: #### C BC ####[facility] Cxmroqmmyg5735[address] [place], [place] [address]Dr. Joo Hansen IG % 1.6 % Critically high 0.0-0.5 [facility] Comment on above: Performed By: #### C BC ####[facility] Brbrbqrnbt0636[address] [place], [place] [address]DrDonald Hansen LYMPH # 2.6 103/ul Normal 1.2-3.8 [facility] Comment on above: Performed By: #### C BC ####[facility] Ovehifxxly[address] [place] [address]DrDonald Hansen Lymphocytes/100 WBC (Bld) 22.2 % Normal 20.5-60.0 [facility] Comment on above: Performed By: #### C BC ####[facility] Zotqclapxn7[address] [place] [address]DrDonald Hansen MANUAL DIFF REQ NO Normal [facility] Comment on above: Performed By: #### C BC ####[facility] Snebvnvucs33[address] [place] [address]DrDonald Hansen MCH (RBC) [Entitic mass] 26.9 pg Normal 26.7-34.0 [facility] Comment on above: Performed By: #### C BC ####[facility] Nsdrlmmeiu4716[address] [place], [place] [address]DrDonald Hansen MCHC (RBC) [Mass/Vol] 30.6 g/dL Normal 29.9-35.2 [facility] Comment on above: Performed By: #### C BC ####[facility] Uwgdgkjrhl6[address] [place], [place] [address]DrDonald Hansen MCV (RBC) [Entitic vol] 87.8 fL Normal 81.0-99.0 [facility] Comment on above: Performed By: #### C BC ####[facility] Auhbjpssup[address] [place], [place] [address]DrDonald Hansen MONO # 0.6 103/ul Normal 0.3-0.8 [facility] Comment on above: Performed By: #### C BC ####[facility] Hkawtzwvrl5[address] [place], [place] [address]DrDonald Hansen Monocytes/100 WBC (Bld) 5.4 % Normal 1.7-12.0 [facility] Comment on above: Performed By: #### C BC ####[facility] Xhvakaqdtt956[address] [place], [place] [address]Dr. Joo Hansen NEUT # 8.1 103/ul Critically high 1.4-6.5 [facility] Comment on above: Performed By: #### C BC ####[facility] Yecwklmeay[address] [place] [id number]. Joo Hansen Neutrophils/100 WBC (Bld) 70.3 % Normal 43.0-75.0 [facility] Comment on above: Performed By: #### C BC ####[facility] Micnpsgznv05[address] [place] [address]Dr. Joo Hansen Platelet mean volume (Bld) [Entitic vol] 9.1 fL Critically low 9.5-13.5 [facility] Comment on above: Performed By: #### C BC ####[facility] Kvomabwkpz9[address] [place], [place] [address]DrDonald Hansen PLT 290 103/ul Normal 150-450 [facility] Comment on above: Performed By: #### C BC ####[facility] Mryflqdhxb4723[address] [place], [place] [address]DrDonald Hansen RBC 4.09 106/ul Critically low 4.20-5.40 [facility] Comment on above: Performed By: #### C BC ####[facility] Cvmrimhabc2314[address] [place], [place] [address]DrDonald Hansen WBC 11.5 103/ul Critically high 4.0-11.0 [facility] Comment on above: Performed By: #### C BC ####[facility] Cfjdwmwwjt205[address] [place], [place] [address]Dr. Joo Hansen PROF 14(COMP METB)on 023 Albumin [Mass/Vol] 2.9 g/dL Critically low 3.4-5.0 [facility] Comment on above: Performed By: #### C MP ####[facility] Ubkncbftcf647[address] [place], [place] [address]DrDonald Hansen Albumin/Globulin [Mass ratio] 1.0 {ratio} Normal [facility] Comment on above: Performed By: #### C MP ####[facility] Nokvuunhbn4056[address] [place], [place] [address]Dr. Joo Hansen ALP [Catalytic activity/Vol] 65 U/L Normal 46-116 [facility] Comment on above: Performed By: #### C MP ####[facility] Ghfzycfuee2884 [place] [address]Dr. Joo Hansen ALT [Catalytic activity/Vol] 37 U/L Normal 14-59 [facility] Comment on above: Performed By: #### C MP ####[facility] Rjonovnrbf7499[address] [place], [place] [address]Dr. Joo Hansen Anion gap [Moles/Vol] 15.1 mmol/L Normal [facility] Comment on above: Performed By: #### C MP ####[facility] Mrqytxftla5454[address] [place], [place] [address]Dr. Joo Hansen AST [Catalytic activity/Vol] 20 U/L Normal 15-37 [facility] Comment on above: Performed By: #### C MP ####[facility] Lzszeplvcj7101[address] [place], [place] [address]Dr. Joo Tyrone Bilirubin [Mass/Vol] 0.3 mg/dL Normal 0.2-1.0 [facility] Comment on above: Performed By: #### C MP ####[facility] Zcjlsnklth457[address] [place], [place] [address]Dr. Joo Tyrone Calcium [Mass/Vol] 8.7 mg/dL Normal 8.5-10.1 [facility] Comment on above: Performed By: #### C MP ####[facility] Sefbvtynwl1204[address] [place], [place] [address]Dr. Joo Tyrone Chloride [Moles/Vol] 106 mmol/L Normal 98-107 [facility] Comment on above: Performed By: #### C MP ####[facility] Vcmawhuimw[address] [place], [place] [address]Dr. Joo Tyrone CO2 [Moles/Vol] 23.0 mmol/L Normal 21.0-32.0 [facility] Comment on above: Performed By: #### C MP ####[facility] Kbvrztqyer[address] [place], [place] [address]Dr. Joo Tyrone Creatinine [Mass/Vol] 0.63 mg/dL Normal 0.55-1.02 [facility] Comment on above: Performed By: #### C MP ####[facility] Ajytslnvpd9[address] [place] [address]Dr. Joo Hansen EGFR-AF MOSOTHO >60 Normal >=60 [facility] Comment on above: Performed By: #### C MP ####[facility] E[address]wpwe[address] [place] [id number]. Joo Hansen EGFR-NON AF MOSOTHO >60 Normal >=60 [facility] Comment on above: Performed By: #### C MP ####[facility] Bnugctakma15[address] [place] [id number]. Joo Hansen Globulin (S) [Mass/Vol] 2.9 g/dL Normal [facility] Comment on above: Performed By: #### C MP ####[facility] Yktxinikuz9[address] [place] [address]Dr. Joo Hansen Glucose [Mass/Vol] 174 mg/dL Critically high 74-106 [facility] Comment on above: Performed By: #### C MP ####[facility] Lhsaeyevkm5703 [place] [address]Dr. Joo Hansen Potassium [Moles/Vol] 3.1 mmol/L Critically low 3.5-5.1 [facility] Comment on above: Performed By: #### C MP ####[facility] Lxnadiclfo0882 [place] [id number]. Joo Hansen Protein [Mass/Vol] 5.8 g/dL Critically low 6.4-8.2 Th [facility] Comment on above: Performed By: #### C MP ####[facility] Youxvunmyx54[address] [place] [address]Dr. Joo Hansen Sodium [Moles/Vol] 141 mmol/L Normal 136-145 [facility] Comment on above: Performed By: #### C MP ####[facility] Syvrfxnmdg3626 [place] [id number]. Joo Hansen Urea nitrogen [Mass/Vol] 17.0 mg/dL Normal 7.0-18.0 [facility] Comment on above: Performed By: #### C MP ####[facility] Rhwokhmbxj68[address] [place] [address]Dr. Joo Hansen Urea nitrogen/Creatinine [Mass ratio] 27.0 mg/mg Normal [facility] Comment on above: Performed By: #### C MP ####[facility] Oqmhdxwaqv75[address] [place] [address]Dr. Maria De Jesusfausto Tyrone VANCOMYCIN TROUGHon 08-28-19 23 VANCOMYCIN TROUGH 6.2 ug/ml Normal 5.0-20.[address] [facility] Comment on above: Performed By: #### V ANCT ####[facility] Lcnzphutvv[address] [place], [place] [address]Dr. Joo Tyrone CBC W MANUAL DIFFon 08-27-19 23 ATYPICAL LYMPH # 0.07 103/ul Normal [facility] Comment on above: Performed By: #### C BCMAN ####[facility] Ysgqvddktc[address] [place], [place] [address]Dr. Joo Tyrone ATYPICAL LYMPH % 1 % Normal [facility] Comment on above: Performed By: #### C BCMAN ####[facility] Xrjdmogfex64[address] [place], [place] [address]Dr. Joo Hansen BAND # 0.0 103/ul Normal 0.0-0.3 [facility] Comment on above: Performed By: #### C BCMAN ####[facility] Zmmoosloim64[address] [place], [place] [address]Dr. Joo Tyrone BAND % 0 % Normal 0-5 [facility] Comment on above: Performed By: #### C BCMAN ####[facility] Svsmkfieft9[address] [place] [address]Dr. Joo Hansen BASOM # 0.00 103/ul Normal 0.00-0.10 [facility] Comment on above: Performed By: #### C BCMAN ####[facility] Wddnlhkbmf9239 [place] [address]Dr. Joo Hansen BASOM % 0.0 % Critically low 0.2-2.0 [facility] Comment on above: Performed By: #### C BCMAN ####[facility] Zzupcukysi95[address] [place], [place] [address]Sq. Joo Hansen BLAST # Normal [facility] Comment on above: Performed By: #### C BCMAN ####[facility] Knjpytcewu6[address] [place] [id number]. Joo Hansen BLAST % Normal [facility] Comment on above: Performed By: #### C BCMAN ####[facility] Mnntmfxvbt2630 [place] [id number]. Joo Hansen KATERIN CELLS 2+ Normal [facility] Comment on above: Performed By: #### C BCMAN ####[facility] Ruxklkqfxm70[address] [place] [address]Dr. Joo Hansen CORRECTED WBC Normal 4.0-11.0 [facility] Comment on above: Performed By: #### C BCYOGESH ####[facility] Acrcnebudp22[address] [place] [address]Dr. Joo Hansen EOS # 0.00 103/ul Normal 0.00-0.70 [facility] Comment on above: Performed By: #### C BCYOGESH ####[facility] Mxrkwjntwb9093 [place] [address]Dr. Joo Hansen EOS% 0.0 % Critically low 0.9-7.0 [facility] Comment on above: Performed By: #### C BCYOGESH ####[facility] Bqniluhywr6480 [place] [id number]. Joo Hansen HCT 33.5 % Critically low 36.0-48.0 [facility] Comment on above: Performed By: #### C BCYOGESH ####[facility] Xzydtlpahr2421 [place] [id number]. Joo Hansen HGB 10.8 g/dl Critically low 12.0-16.0 [facility] Comment on above: Performed By: #### C BCMAN ####[facility] Vyvdnwwnih[address] [place], [place] [address]Dr. Joo Hansen LYMPHM # 0.21 103/ul Critically low 1.20-3.80 [facility] Comment on above: Performed By: #### C GALILEA ####[facility] Ejkbeakvms6204 [place] [id number]. Joo Hansen LYMPHM% 3.0 % Critically low 20.5-60.0 [facility] Comment on above: Performed By: #### C AGLILEA ####[facility] Plxhphvlif6740 [place] [id number]. Joo Hansen MCH 27.6 pg Normal 26.7-34.0 [facility] Comment on above: Performed By: #### C GALILEA ####[facility] Irhjrnisjs9470 [place] [id number]. Joo Hansen MCHC 32.2 g/dl Normal 29.9-35.2 [facility] Comment on above: Performed By: #### C GALILEA ####[facility] Fdtyuguvxf6960 [place] [address]Dr. Joo Hansen MCV 85.5 fL Normal 81.0-99.0 [facility] Comment on above: Performed By: #### C GALILEA ####[facility] Ijxiloxtnr7599 [place] [id number]. Joo Hansen METAMYELOCYTE # Normal [facility] Comment on above: Performed By: #### C GALILEA ####[facility] Rzxgpegqmr3681 [place] [id number]. Joo Hansen METAMYELOCYTE % Normal [facility] Comment on above: Performed By: #### C GALILEA ####[facility] Qzrbdkisvw4246 [place] [id number]. Joo Hansen MONOM# 0.21 103/ul Critically low 0.30-0.80 [facility] Comment on above: Performed By: #### C GALILEA ####[facility] Aclbzrqexx1065 [place] [id number]. Joo Hansen MONOM% 3.0 % Normal 1.7-12.0 [facility] Comment on above: Performed By: #### C GALILEA ####[facility] Bdlvxkblah[address] [place], [place] [address]Dr. Joo Hansen MPV 9.4 fL Critically low 9.5-13.5 [facility] Comment on above: Performed By: #### C GALILEA ####[facility] Qkvxmjwwcx4538 [place] [id number]. Joo Hansen MYELOCYTE # Normal [facility] Comment on above: Performed By: #### C GALILEA ####[facility] Liaodxfhuz8674 [place] [id number]. Joo Hansen MYELOCYTE % Normal [facility] Comment on above: Performed By: #### C GALILEA ####[facility] Fbvaiornfx7316 [place] [id number]. Joo Hansen NRBC Normal [facility] Comment on above: Performed By: #### C GALILEA ####[facility] Rcizjogrly8707 [place] [id number]. Joo Hansen OVALOCYTES 2+ Normal [facility] Comment on above: Performed By: #### C GALILEA ####[facility] Wycubspkya0860 [place] [id number]. Joo Hansen PLT 275 103/ul Normal 150-450 [facility] Comment on above: Performed By: #### C GALILEA ####[facility] Stupgttbrw6146 [place] [id number]. Joo Hansen RBC 3.92 106/ul Critically low 4.20-5.40 [facility] Comment on above: Performed By: #### C GALILEA ####[facility] Djedvpmmiu1160 [place] [id number]. Joo Hansen RDW 17.6 % Critically high 11.0-15.0 [facility] Comment on above: Performed By: #### C GALILEA ####[facility] Plrbxnyooz3550 [place] [id number]. Joo Hansen SEG # 6.51 103/ul Critically high 1.40-6.50 [facility] Comment on above: Performed By: #### C GALILEA ####[facility] Utvgckduzw[address] [place], [place] [address]Dr. Joo Hansen SEG % 93.0 % Critically high 43.0-75.0 [facility] Comment on above: Performed By: #### C BCMAN ####[facility] Bvdbbmpotm1302 [place] [id number]. Joo Hansen WBC 7.0 103/ul Normal 4.0-11.0 [facility] Comment on above: Performed By: #### C BCMAN ####[facility] Zfxnaurkmj4475 [place] [id number]. Joo Hansen D-DIMERon 08-27-2022 D-DIMER 0.34 mg/L FEU Normal <=0.59 [facility] Comment on above: Performed By: #### D DIM ####[facility] Cqcqihnled[address] [place] [address]Dr. Joo Hansen D-DIMER COMMENTS SEE BELOW Normal [facility] Comment on above: Result Comment: Incr eases in D-Dimer concentration observed with thromboembolic events can be variable due to localization, size, and age of the thrombus. Therefore, a thromboembolic event cannot be diagnosed with certainty on the basis of the reference range. D-Dimers may also be elevated for a variety of disorders including: advanced age, , coronary disease, cancer, liver disease, infection, inflammation, hematoma, DIC, trauma, post-surgery, diabetes, thrombolytic or anticoagulant therapy, stress, and generalized hospitalization. Performed By: #### D DIM ####[facility] Pdkbvrmdlk3354 [place] [id number]. Joo Hansen POINT OF CARE GLUCOSEon 08-16 Glucose [Mass/Vol] 249 mg/dL Critically high 74-106 [facility] Comment on above: Performed By: #### P OCGLUC ####[facility] Iorlutrdtd4630 [place] [address]Dr. Joo Hansen Glucose [Mass/Vol] 439 mg/dL Critically high 74-106 [facility] Comment on above: Performed By: #### P OCGLUC ####[facility] Oetbuqirss9845 [place] [address]Dr. Joo Hansen Glucose [Mass/Vol] 423 mg/dL Critically high 74-106 [facility] Comment on above: Performed By: #### P OCGLUC ####[facility] Omkasnqniq9936 [place] [address]DrDonald Hansen PROF 14(COMP METB)on 023 Albumin [Mass/Vol] 2.8 g/dL Critically low 3.4-5.0 Th [facility] Comment on above: Performed By: #### C MP ####[facility] Jrbzpwkztg9715 [place] [address]DrDonald Hansen Albumin/Globulin [Mass ratio] 1.0 {ratio} Normal [facility] Comment on above: Performed By: #### C MP ####[facility] Bjoyqoqklt70[address] [place], [place] [address]Dr. Joo Hansen ALP [Catalytic activity/Vol] 80 U/L Normal 46-116 [facility] Comment on above: Performed By: #### C MP ####[facility] Towmdfraed402[address] [place], [place] [address]Dr. Joo Hansen ALT [Catalytic activity/Vol] 30 U/L Normal 14-59 [facility] Comment on above: Performed By: #### C MP ####[facility] Uzmhkzujno746[address] [place], [place] [address]DrDonald Hansen Anion gap [Moles/Vol] 14.1 mmol/L Normal [facility] Comment on above: Performed By: #### C MP ####[facility] Ljwlxuqiti55[address] [place], [place] [address]Dr. Joo Hansen AST [Catalytic activity/Vol] 16 U/L Normal 15-37 [facility] Comment on above: Performed By: #### C MP ####[facility] Yvkfrxgrsr4645[address] [place], [place] [address]DrDonald Hansen Bilirubin [Mass/Vol] 0.3 mg/dL Normal 0.2-1.0 [facility] Comment on above: Performed By: #### C MP ####[facility] Disfhrxaok24[address] [place], [place] [address]DrDonald Hansen Calcium [Mass/Vol] 8.6 mg/dL Normal 8.5-10.1 [facility] Comment on above: Performed By: #### C MP ####[facility] Bnkekbmnmx1275 [place] [address]Dr. Joo Hansen Chloride [Moles/Vol] 104 mmol/L Normal 98-107 [facility] Comment on above: Performed By: #### C MP ####[facility] Zaukjacttq5385 [place] [address]Dr. Joo Hansen CO2 [Moles/Vol] 21.4 mmol/L Normal 21.0-32.0 [facility] Comment on above: Performed By: #### C MP ####[facility] Qgllesjpze2693 [place] [address]Dr. Joo Hansen Creatinine [Mass/Vol] 0.57 mg/dL Normal 0.55-1.02 [facility] Comment on above: Performed By: #### C MP ####[facility] Leazylwgam4[address] [place], [place] [address]Dr. Joo Hansen EGFR-AF MOSOTHO >60 Normal >=60 [facility] Comment on above: Performed By: #### C MP ####[facility] Pzcovnrkxb4729[address] [place], [place] [address]Dr. Joo Hansen EGFR-NON AF MOSOTHO >60 Normal >=60 [facility] Comment on above: Performed By: #### C MP ####[facility] Nmfxcgdutd2134[address] [place], [place] [address]Dr. Joo Hansen Globulin (S) [Mass/Vol] 2.9 g/dL Normal [facility] Comment on above: Performed By: #### C MP ####[facility] Mpwqmzkjfw1179 [place] [address]Dr. Joo Hansen Glucose [Mass/Vol] 435 mg/dL Critically high 74-106 [facility] Comment on above: Performed By: #### C MP ####[facility] Uwjjtpnndx1627 [place] [address]Dr. Joo Hansen Potassium [Moles/Vol] 3.5 mmol/L Normal 3.5-5.1 [facility] Comment on above: Performed By: #### C MP ####[facility] Lexlgnumdw0351 [place] [address]Dr. Joo Hansen Protein [Mass/Vol] 5.7 g/dL Critically low 6.4-8.2 Th [facility] Comment on above: Performed By: #### C MP ####[facility] Wvhcrpjfcb6128 [place] [address]Dr. Joo Hansen Sodium [Moles/Vol] 136 mmol/L Normal 136-145 [facility] Comment on above: Performed By: #### C MP ####[facility] Ybwzptlclc32[address] [place], [place] [address]Dr. Joo Hansen Urea nitrogen [Mass/Vol] 15.0 mg/dL Normal 7.0-18.0 [facility] Comment on above: Performed By: #### C MP ####[facility] Ffvnbrshni17[address] [place], [place] [address]Dr. Joo Tyrone Urea nitrogen/Creatinine [Mass ratio] 26.3 mg/mg Normal [facility] Comment on above: Performed By: #### C MP ####[facility] Qntvjxdisd08[address] [place], [place] [address]Dr. Joo Hansen XR CHEST 2 Von 08-27-2022 XR CHEST 2 V Normal [facility] CBC AUTO DIFFon 08-26-2022 BASO # 0.0 103/ul Normal 0.0-0.1 [facility] Comment on above: Performed By: #### C BC ####[facility] Omkpzqcleq5146[address] [place], [place] [address]Dr. Joo Tyrone Basophils/100 WBC (Bld) 0.1 % Critically low 0.2-2.0 [facility] Comment on above: Performed By: #### C BC ####[facility] Ewagozfxal4640[address] [place], [place] [address]Dr. Joo Hansen EO # 0.0 103/ul Normal 0.0-0.7 [facility] Comment on above: Performed By: #### C BC ####[facility] Smxnitavdo8357[address] [place], [place] [address]Dr. Joo Hansen Eosinophils/100 WBC (Bld) 0.0 % Critically low 0.9-7.0 [facility] Comment on above: Performed By: #### C BC ####[facility] Ysghifqwvw1280 [place] [address]Dr. Joo Hansen Erythrocyte distribution width (RBC) [Ratio] 17.4 % Critically high 11.0-15.0 [facility] Comment on above: Performed By: #### C BC ####[facility] Txwdhafitb0626[address] [place], [place] [address]Dr. Joo Hansen Hematocrit (Bld) [Volume fraction] 32.4 % Critically low 36.0-48.0 [facility] Comment on above: Performed By: #### C BC ####[facility] Undpgfgmxn9820[address] [place], [place] [address]Dr. Joo Hansen Hemoglobin (Bld) [Mass/Vol] 10.8 g/dL Critically low 12.0-16.0 [facility] Comment on above: Performed By: #### C BC ####[facility] Olwboceskm5920[address] [place], [place] [address]Dr. Joo Hansen IG # 0.05 10e3/ul Critically high 0.00-0.03 [facility] Comment on above: Performed By: #### C BC ####[facility] Pbotparcmi[address] [place], [place] [address]Dr. Joo Hansen IG % 0.6 % Critically high 0.0-0.5 [facility] Comment on above: Performed By: #### C BC ####[facility] Etihmvpynu62[address] [place], [place] [address]Dr. Joo Hansen LYMPH # 0.5 103/ul Critically low 1.2-3.8 [facility] Comment on above: Performed By: #### C BC ####[facility] Aretwvaifm57[address] [place], [place] [address]Dr. Joo Hansen Lymphocytes/100 WBC (Bld) 5.6 % Critically low 20.5-60.0 [facility] Comment on above: Performed By: #### C BC ####[facility] Dxngeggwkg7600 [place] [address]Dr. Joo Hansen MANUAL DIFF REQ NO Normal [facility] Comment on above: Performed By: #### C BC ####[facility] Ipxxqcnmbf9239 [place] [address]Dr. Joo Hansen MCH (RBC) [Entitic mass] 26.7 pg Normal 26.7-34.0 [facility] Comment on above: Performed By: #### C BC ####[facility] Drjjbvmock0512 [place] [address]Dr. Joo Hansen MCHC (RBC) [Mass/Vol] 33.3 g/dL Normal 29.9-35.2 [facility] Comment on above: Performed By: #### C BC ####[facility] Kihdnjkvpa[address] [place], [place] [address]Dr. Joo Tyrone MCV (RBC) [Entitic vol] 80.0 fL Critically low 81.0-99.0 [facility] Comment on above: Performed By: #### C BC ####[facility] Ywhiwoiwkk[address] [place], [place] [address]Dr. Joo Tyrone MONO # 0.4 103/ul Normal 0.3-0.8 [facility] Comment on above: Performed By: #### C BC ####[facility] Dufftcrcbt[address] [place] [address]Dr. Maria De Jesusfausto Hansen Monocytes/100 WBC (Bld) 4.6 % Normal 1.7-12.0 [facility] Comment on above: Performed By: #### C BC ####[facility] Ifmcgkrkqy4[address] [place] [address]Dr. Maria De Jesusfausto Tyrone NEUT # 7.4 103/ul Critically high 1.4-6.5 [facility] Comment on above: Performed By: #### C BC ####[facility] Znryeljyts5[address] [place], [place] [address]Dr. Maria De Jesusfausto Tyrone Neutrophils/100 WBC (Bld) 89.1 % Critically high 43.0-75.0 [facility] Comment on above: Performed By: #### C BC ####[facility] Vrzfntubln29[address] [place] [address]Dr. Joo Hansen Platelet mean volume (Bld) [Entitic vol] 9.5 fL Normal 9.5-13.5 [facility] Comment on above: Performed By: #### C BC ####[facility] Drtfrukuln76[address] [place] [address]Dr. Joo Hansen PLT 295 103/ul Normal 150-450 [facility] Comment on above: Performed By: #### C BC ####[facility] Taxjleamrp[address] [place] [address]Dr. Joo Hansen RBC 4.05 106/ul Critically low 4.20-5.40 [facility] [place] [facility] Comment on above: Performed By: #### C BC ####[facility] Jlwtvssqys8898 [place] [address]Dr. Joo Hansen WBC 8.3 103/ul Normal 4.0-11.0 [facility] Comment on above: Performed By: #### C BC ####[facility] Ilkcixtgut33[address] [place] [address]Dr. Joo Tyrone POINT OF CARE GLUCOSEon 08-16 Glucose [Mass/Vol] 346 mg/dL Critically high 74-106 [facility] Comment on above: Performed By: #### P OCGLUC ####[facility] Sspzwuznyd88[address] [place] [address]Dr. Joo Hansen Glucose [Mass/Vol] 445 mg/dL Critically high 74-106 [facility] Comment on above: Performed By: #### P OCGLUC ####[facility] Tjkgfxyaah2435 [place] [address]Dr. Joo Hansen Glucose [Mass/Vol] 404 mg/dL Critically high 74-106 [facility] Comment on above: Performed By: #### P OCGLUC ####[facility] Bfcsvpswgd89[address] [place] [address]Dr. Joo Hansen PROF 14(COMP METB)on 023 Albumin [Mass/Vol] 2.8 g/dL Critically low 3.4-5.0 [facility] Comment on above: Performed By: #### C MP ####[facility] Ipqvwzpafm[address] [place] [address]Dr. Joo Tyrone Albumin/Globulin [Mass ratio] 1.0 {ratio} Normal [facility] Comment on above: Performed By: #### C MP ####[facility] Nugfrmxczd4039 [place] [id number]. Maria De Jesusfausto Hansen ALP [Catalytic activity/Vol] 70 U/L Normal 46-116 [facility] Comment on above: Performed By: #### C MP ####[facility] Sulxrnyzsd8888[address] [place], [place] [address]Dr. Joo Tyrone ALT [Catalytic activity/Vol] 35 U/L Normal 14-59 [facility] Comment on above: Performed By: #### C MP ####[facility] Phspnxjniy747188 [address] [place], [place] [address]Dr. Joo Hansen Anion gap [Moles/Vol] 17.0 mmol/L Normal [facility] Comment on above: Performed By: #### C MP ####[facility] Zwyvnwpxsc3149[address] [place], [place] [address]Dr. Joo Tyrone AST [Catalytic activity/Vol] 27 U/L Normal 15-37 [facility] Comment on above: Performed By: #### C MP ####[facility] Hdaluxderi2064[address] [place], [place] [address]Dr. Joo Hansen Bilirubin [Mass/Vol] 0.3 mg/dL Normal 0.2-1.0 [facility] Comment on above: Performed By: #### C MP ####[facility] Ctuwlsadoc5212[address] [place], [place] [address]Dr. Joo Hansen Calcium [Mass/Vol] 8.2 mg/dL Critically low 8.5-10.1 Th [facility] Comment on above: Performed By: #### C MP ####[facility] Setmegkhyr6990[address] [place], [place] [address]Dr. Joo Hansen Chloride [Moles/Vol] 105 mmol/L Normal 98-107 [facility] Comment on above: Performed By: #### C MP ####[facility] Xjvlnbjunt5669[address] [place], [place] [address]Dr. Joo Hansen CO2 [Moles/Vol] 21.8 mmol/L Normal 21.0-32.0 [facility] Comment on above: Performed By: #### C MP ####[facility] Gldxoveeie5490 [place] [address]Dr. Joo Hansen Creatinine [Mass/Vol] 0.58 mg/dL Normal 0.55-1.02 [facility] Comment on above: Performed By: #### C MP ####[facility] Ttpodldiud1320[address] [place], [place] [address]Dr. Joo Hansen EGFR-AF MOSOTHO >60 Normal >=60 [facility] Comment on above: Performed By: #### C MP ####[facility] Gnapbubbxt4479[address] [place], [place] [address]Dr. Joo Hansen EGFR-NON AF MOSOTHO >60 Normal >=60 [facility] Comment on above: Performed By: #### C MP ####[facility] Mcvfdbswvd8477[address] [place], [place] [address]Dr. Joo Hansen Globulin (S) [Mass/Vol] 2.7 g/dL Normal [facility] Comment on above: Performed By: #### C MP ####[facility] Hhivywclgj020[address] [place], [place] [address]Dr. Joo Hansen Glucose [Mass/Vol] 372 mg/dL Critically high 74-106 [facility] Comment on above: Performed By: #### C MP ####[facility] Hfteraroyq906[address] [place], [place] [address]Dr. Joo Hansen Potassium [Moles/Vol] 3.8 mmol/L Normal 3.5-5.1 [facility] Comment on above: Performed By: #### C MP ####[facility] Xpsuczbiak8[address] [place], [place] [address]Dr. Joo Hansen Protein [Mass/Vol] 5.5 g/dL Critically low 6.4-8.2 Th [facility] Comment on above: Performed By: #### C MP ####[facility] Moadydfovd8159[address] [place], [place] [address]Dr. Joo Hansen Sodium [Moles/Vol] 140 mmol/L Normal 136-145 [facility] Comment on above: Performed By: #### C MP ####[facility] Urapvwurhg6169[address] [place], [place] [address]Dr. Joo Hansen Urea nitrogen [Mass/Vol] 14.0 mg/dL Normal 7.0-18.0 [facility] Comment on above: Performed By: #### C MP ####[facility] Vsmjwakmsk866[address] [place], [place] [address]Dr. Joo Hansen Urea nitrogen/Creatinine [Mass ratio] 24.1 mg/mg Normal [facility] Comment on above: Performed By: #### C MP ####[facility] Wxtlwyjlse6033[address] [place], [place] [address]Dr. Joo Hansen VANCOMYCIN TROUGHon 08-26-19 23 VANCOMYCIN TROUGH 11.3 ug/ml Normal 5.0-20.0 [facility] Comment on above: Performed By: #### V ANCT ####[facility] Guvnttnzqh988[address] [place], [place] [address]Dr. Joo Hansen BLOOD CULTURE ID PANELon A. baumannii Detected Critically abnormal NOT DETECTED [facility] Comment on above: Performed By: #### B CID2 ####[facility] Ssxeocebun045[address] [place], [place] [address]Dr. Joo Tyrone Bacteriodes fragilis Not detected Normal NOT DETECTED [facility] Comment on above: Performed By: #### B CID2 ####[facility] Wvfttkmjvn5[address] [place], [place] [address]Dr. Joo Hansen BCID CONTROLS PASSED Normal [facility] Comment on above: Performed By: #### B CID2 ####[facility] Mdxpczdymm218[address] [place], [place] [address]Dr. Joo Hansen BCIDBTHD BLOOD CULTURE BOTTLE INFORMATION Normal [facility] Comment on above: Performed By: #### B CID2 ####[facility] Ulyglklsck8924[address] [place], [place] [address]Dr. Joo Hansen BCIDHD1 ANTIMICROBIAL RESISTANCE GENES Normal [facility] Comment on above: Performed By: #### B CID2 ####[facility] Rkmnjsphja14[address] [place] [address]Dr. Yifausto Hansen BCIDHD2 SEE BELOW Normal [facility] Comment on above: Result Comment: Note : Antimicrobial resitance can occur via multiple mechanisms. A Not Detected result for the [employer] antomicrobial resistance gene assays does not indicate antimicrobial susceptibility. Subculturing is required for species identification and susceptibility testing of isolates. Performed By: #### B CID2 ####[facility] Wprmjhmacu9575[address] [place], [place] [address]Dr. Yifausto Hansen BCIDHD3 Positive Normal [facility] Comment on above: Performed By: #### B CID2 ####[facility] Bctxlwgghj028[address] [place], [place] [address]Dr. Yifausto Hansen BCIDHD4 Negative Normal [facility] Comment on above: Performed By: #### B CID2 ####[facility] Liojzqyyco7407[address] [place], [place] [address]Dr. Joo Hansen BCIDHD5 YEAST Normal [facility] Comment on above: Performed By: #### B CID2 ####[facility] Xzpvobuzgo11[address] [place], [place] [address]Dr. Joo Hansen Bottle Set: Set 1 Normal [facility] Comment on above: Performed By: #### B CID2 ####[facility] Unqredupuz6059[address] [place], [place] [address]Dr. Joo Hansen Bottle: Pediatric Normal [facility] Comment on above: Performed By: #### B CID2 ####[facility] Ahgahporya0[address] [place], [place] [address]Dr. Yifausto Hansen C. neoformans/gattii Not detected Normal NOT DETECTED [facility] Comment on above: Performed By: #### B CID2 ####[facility] Eyherrpsfo522[address] [place], [place] [address]Dr. Yifausto Hansen Yaima albicans Not detected Normal NOT DETECTED [facility] Comment on above: Performed By: #### B CID2 ####[facility] Ribeopjgdl[address] [place], [place] [address]Dr. Yifausto Hansen Yaima auris Not detected Normal NOT DETECTED [facility] Comment on above: Performed By: #### B CID2 ####[facility] Susshbudvv687[address] [place], [place] [address]Dr. Maria De Jesuslan Hansen Yaima glabrata Not detected Normal NOT DETECTED [facility] Comment on above: Performed By: #### B CID2 ####[facility] Xuvpwoebom1649 [place] [address]Dr. Yilan Hansen Yaima Krusei Not detected Normal NOT DETECTED [facility] Comment on above: Performed By: #### B CID2 ####[facility] Baaqaogsqf825[address] [place], [place] [address]Dr. Yifausto Hansen Yaima Parapsilosis Not detected Normal NOT DETECTED [facility] Comment on above: Performed By: #### B CID2 ####[facility] Dzmfbhlivx7414[address] [place], [place] [address]Dr. Yifausto Hansen Yaima Tropicalis Not detected Normal NOT DETECTED [facility] Comment on above: Performed By: #### B CID2 ####[facility] Tjmhdxjyjs656[address] [place], [place] [address]Dr. Joo Hansen CTX-M Resistant Gene Not detected Normal NOT DETECTED [facility] Comment on above: Performed By: #### B CID2 ####[facility] Gnrihclysu6214[address] [place], [place] [address]Dr. Yifausto Hansen E. Cloacae complex Not detected Normal NOT DETECTED [facility] Comment on above: Performed By: #### B CID2 ####[facility] Tjmunrbzib7079[address] [place], [place] [address]Dr. Yilan Hansen E. faecalis Not detected Normal NOT DETECTED [facility] Comment on above: Performed By: #### B CID2 ####[facility] Bgzkeihoae500[address] [place], [place] [address]Dr. Yilan Hansen E. faecium Not detected Normal NOT DETECTED [facility] Comment on above: Performed By: #### B CID2 ####[facility] Tcxifwqext8730[address] [place], [place] [address]Dr. Maria De Jesuslan Hansen Enterobacteriaceae Not detected Normal NOT DETECTED [facility] Comment on above: Performed By: #### B CID2 ####[facility] Syxfonampu8451 [place] [address]Dr. Maria De Jesusfausto Hansen Escherichia coli Not detected Normal NOT DETECTED [facility] Comment on above: Performed By: #### B CID2 ####[facility] Ksyvlldvhq1579[address] [place], [place] [address]Dr. Joo Hansen H. influenzae Not detected Normal NOT DETECTED [facility] Comment on above: Performed By: #### B CID2 ####[facility] Gejqysenpl646[address] [place], [place] [address]Dr. Joo Hansen IMP Resistant Gene Not detected Normal NOT DETECTED [facility] Comment on above: Performed By: #### B CID2 ####[facility] Yddfjyfijx2033[address] [place], [place] [address]Dr. Joo Hansen K. oxytoca Not detected Normal NOT DETECTED [facility] Comment on above: Performed By: #### B CID2 ####[facility] Mppxcbntnk0650[address] [place], [place] [address]Dr. Joo Hansen K. pneumoniae Not detected Normal NOT DETECTED [facility] Comment on above: Performed By: #### B CID2 ####[facility] Crurudksrl5486[address] [place], [place] [address]Dr. Joo Hansen Klebsiella aerogenes Not detected Normal NOT DETECTED [facility] Comment on above: Performed By: #### B CID2 ####[facility] Bjcnbwxdyu0797[address] [place], [place] [address]Dr. Joo Hansen KPC Resistant Gene Not detected Normal NOT DETECTED [facility] Comment on above: Performed By: #### B CID2 ####[facility] Heciihhzza3373 [place] [address]Dr. Joo Hansen List. monocytogenes Not detected Normal NOT DETECTED [facility] Comment on above: Performed By: #### B CID2 ####[facility] Vlmnlyptmd268[address] [place], [place] [address]Dr. Joo Hansen Mcr-1 Resistant Gene Not Applicable Normal NOT DETECTED [facility] Comment on above: Performed By: #### B CID2 ####[facility] Sprlmwpswz0212[address] [place], [place] [address]Dr. Joo Hansen mecA/C Not Applicable Normal NOT DETECTED [facility] Comment on above: Performed By: #### B CID2 ####[facility] Tuvbvjxobi8825[address] [place], [place] [address]Dr. Joo Hansen mecA/C MREJ Not Applicable Normal NOT DETECTED [facility] Comment on above: Performed By: #### B CID2 ####[facility] Owehswohtf4601[address] [place], [place] [address]Dr. Joo Hansen N. meningitidis Not detected Normal NOT DETECTED [facility] Comment on above: Performed By: #### B CID2 ####[facility] Sldlhzrnwh712[address] [place], [place] [address]Dr. Joo Hansen NDM Resistant Gene Not detected Normal NOT DETECTED [facility] Comment on above: Performed By: #### B CID2 ####[facility] Qztqvsqhwp405[address] [place], [place] [address]Dr. Joo Hansen Oxa-48-like Not Applicable Normal NOT DETECTED [facility] Comment on above: Performed By: #### B CID2 ####[facility] Zjmtncyepv9075[address] [place], [place] [address]Dr. Joo Hansen Proteus Not detected Normal NOT DETECTED [facility] Comment on above: Performed By: #### B CID2 ####[facility] Adkohanorx9959[address] [place], [place] [address]Dr. Joo Hansen Pseud. aeruginosa Not detected Normal NOT DETECTED [facility] Comment on above: Performed By: #### B CID2 ####[facility] Ywfecpykjg7674[address] [place], [place] [address]Dr. Joo Hansen S. maltophilia Not detected Normal NOT DETECTED [facility] Comment on above: Performed By: #### B CID2 ####[facility] Yztzdwribw760[address] [place], [place] [address]Dr. Joo Hansen Salmonella Not detected Normal NOT DETECTED [facility] Comment on above: Performed By: #### B CID2 ####[facility] Onhbeoulia9947[address] [place], [place] [address]Dr. Joo Hansen Seratia marcescens Not detected Normal NOT DETECTED [facility] Comment on above: Performed By: #### B CID2 ####[facility] Qgorgpkjou9250[address] [place], [place] [address]Dr. Joo Hansen Site: L WRIST Normal [facility] Comment on above: Performed By: #### B CID2 ####[facility] Lecgrmxloz6499[address] [place], [place] [address]Dr. Joo Hansen Staph. aureus Not detected Normal NOT DETECTED [facility] Comment on above: Performed By: #### B CID2 ####[facility] Pvdrazgzve5824[address] [place], [place] [address]Dr. Joo Hansen Staph. epidermidis Not detected Normal NOT DETECTED [facility] Comment on above: Performed By: #### B CID2 ####[facility] Bzmstereki8717[address] [place], [place] [address]Dr. Joo Hansen Staph. lugdunensis Not detected Normal NOT DETECTED [facility] Comment on above: Performed By: #### B CID2 ####[facility] Trkecuwkfk2022[address] [place], [place] [address]Dr. Yifausto Hansen Staphylococcus Not detected Normal NOT DETECTED [facility] Comment on above: Performed By: #### B CID2 ####[facility] Qiawjhvclj216[address] [place], [place] [address]Dr. Yifausto Hansen Strep. agalactiae Not detected Normal NOT DETECTED [facility] Comment on above: Performed By: #### B CID2 ####[facility] Hlqvqjfoix260[address] [place], [place] [address]Dr. Yifausto Hansen Strep. pneumoniae Not detected Normal NOT DETECTED [facility] Comment on above: Performed By: #### B CID2 ####[facility] Tfpfdzcqpa9744[address] [place], [place] [address]Dr. Yilan Hansen Strep. pyogenes Not detected Normal NOT DETECTED [facility] Comment on above: Performed By: #### B CID2 ####[facility] Wnycpbzuok7700[address] [place], [place] [address]Dr. Yilan Hansen Streptococcus Not detected Normal NOT DETECTED [facility] Comment on above: Performed By: #### B CID2 ####[facility] Ixtdxtvsiy3132 [place] [address]Dr. Joo Tyrone Nancy/B Resist. Gene Not detected Normal NOT DETECTED [facility] Comment on above: Performed By: #### B CID2 ####[facility] Ysikbtpbuv8104 [place] [address]Dr. Joo Hansen VIM Resistant Gene Not detected Normal NOT DETECTED Th [facility] Comment on above: Performed By: #### B CID2 ####[facility] Gearuzyjgx0105 [place] [address]Dr. Joo Tyrone CBC W MANUAL DIFFon 08-25-19 23 ATYPICAL LYMPH # 0.13 103/ul Normal [facility] Comment on above: Performed By: #### C GALILEA ####[facility] Fixrbljtzi029[address] [place], [place] [address]Dr. Joo Tyrone ATYPICAL LYMPH % 6 % Normal [facility] Comment on above: Performed By: #### C GALILEA ####[facility] Xaokclrzco1935[address] [place], [place] [address]Dr. Joo Hansen BAND # 0.0 103/ul Normal 0.0-0.3 [facility] Comment on above: Performed By: #### C GALILEA ####[facility] Towxmcsefa4866[address] [place], [place] [address]Dr. Joo Hansen BAND % 0 % Normal 0-5 [facility] Comment on above: Performed By: #### C GALILEA ####[facility] Nghasbzmgw8329[address] [place], [place] [address]Dr. Joo Hansen BASOM # 0.00 103/ul Normal 0.00-0.10 [facility] Comment on above: Performed By: #### C GALILEA ####[facility] Ezgjejodup3880[address] [place], [place] [address]Dr. Joo Tyrone BASOM % 0.0 % Critically low 0.2-2.0 [facility] Comment on above: Performed By: #### C GALILEA ####[facility] Zhqqojtfhv[address] [place], [place] [address]Dr. Joo Hansen BLAST # Normal [facility] Comment on above: Performed By: #### C BCYOGESH ####[facility] Nrtvijtbdh4354 [place] [address]Dr. Joo Hansen BLAST % Normal [facility] Comment on above: Performed By: #### C BCMAN ####[facility] Ykzgnrrmrv11[address] [place] [address]Dr. Joo Hansen KATERIN CELLS 2+ Normal [facility] Comment on above: Performed By: #### C BCYOGESH ####[facility] Txoxqpxzkh0162 [place] [address]Dr. Joo Hansen CORRECTED WBC Normal 4.0-11.0 The [facility] Comment on above: Performed By: #### C GALILEA ####[facility] Xodznlhqva2528 [place] [address]Dr. Joo Hansen EOS # 0.00 103/ul Normal 0.00-0.70 [facility] Comment on above: Performed By: #### C GALILEA ####[facility] Orwujedlza8246 [place] [address]Dr. Joo Hansen EOS% 0.0 % Critically low 0.9-7.0 [facility] Comment on above: Performed By: #### C GALILEA ####[facility] Tcsulgosql7192 [place] [address]Dr. Joo Hansen HCT 33.1 % Critically low 36.0-48.0 [facility] Comment on above: Performed By: #### C BCYOGESH ####[facility] Dczaevtadm7117 [place] [address]Dr. Joo Hansen HGB 11.4 g/dl Critically low 12.0-16.0 [facility] Comment on above: Performed By: #### C BCYOGESH ####[facility] Hsfwrvfovk4187 [place] [address]Dr. Joo Hansen LYMPHM # 0.18 103/ul Critically low 1.20-3.80 [facility] Comment on above: Performed By: #### C BCYOGESH ####[facility] Vcyoppqxqj75[address] [place], [place] [address]Gn. Joo Hansen LYMPHM% 8.0 % Critically low 20.5-60.0 [facility] Comment on above: Performed By: #### C GALILEA ####[facility] Xltzebadyy9602 [place], [place] [address]Rv. Joo Hansen MCH 26.6 pg Critically low 26.7-34.0 [facility] Comment on above: Performed By: #### C GALILEA ####[facility] Uvoqovsjxy8874 [place], [place] [address]Oo. Joo Hansen MCHC 34.4 g/dl Normal 29.9-35.2 [facility] Comment on above: Performed By: #### C GALILEA ####[facility] Jbagqcccvl1854 [place] [address]Dr. Joo Hansen MCV 77.3 fL Critically low 81.0-99.0 [facility] Comment on above: Performed By: #### C GALILEA ####[facility] Csmjivycbj0046 [place] [address]Dr. Joo Hansen METAMYELOCYTE # Normal [facility] Comment on above: Performed By: #### C GALILEA ####[facility] Yqoncyiqxm8400 [place] [address]Dr. Joo Hansen METAMYELOCYTE % Normal [facility] Comment on above: Performed By: #### C GALILEA ####[facility] Gcztbkybhe6372 [place] [address]Dr. Joo Hansen MONOM# 0.00 103/ul Critically low 0.30-0.80 [facility] Comment on above: Performed By: #### C GALILEA ####[facility] Tqrjwhzsel6[address] [place] [address]Dr. Joo Hasnen MONOM% 0.0 % Critically low 1.7-12.0 [facility] [facility] Comment on above: Performed By: #### C GALILEA ####[facility] Wy[address]mkrmgb[address] [place] [id number]. Joo Hansen MPV 8.8 fL Critically low 9.5-13.5 [facility] Comment on above: Performed By: #### C GALILEA ####[facility] Mmkwgixuob36[address] [place] [id number]. Joo Hansen MYELOCYTE # Normal [facility] Comment on above: Performed By: #### C GALILEA ####[facility] Watmudyrty[address] [place] [id number]. Joo Hansen MYELOCYTE % Normal [facility] Comment on above: Performed By: #### C GALILEA ####[facility] Gxnzzvbvrh[address] [place] [id number]. Joo Hansen NRBC Normal [facility] Comment on above: Performed By: #### C GALILEA ####[facility] Dmqsfolusr45[address] [place] [id number]. Joo Hansen PLT 261 103/ul Normal 150-450 [facility] Comment on above: Performed By: #### C GALILEA ####[facility] Hvbftuindt[address] [place], [place] [address]Dr. Joo Hansen RBC 4.28 106/ul Normal 4.20-5.40 [facility] Comment on above: Performed By: #### C GALILEA ####[facility] Sjlbrvrxey[address] [place], [place] [address]Dr. Joo Hansen RDW 16.8 % Critically high 11.0-15.0 [facility] Comment on above: Performed By: #### C GALILEA ####[facility] Onsjhvffki[address] [place], [place] [address]Dr. Joo Hansen SEG # 1.89 103/ul Normal 1.40-6.50 [facility] Comment on above: Performed By: #### C GALILEA ####[facility] Eyjabegwwj[address] [place], [place] [address]Dr. Joo Hansen SEG % 86.0 % Critically high 43.0-75.0 [facility] Comment on above: Performed By: #### C GALILEA ####[facility] Nbpmlvlzmd[address] [place], [place] [address]Dr. Joo Hansen WBC 2.2 103/ul Critically low 4.0-11.0 [facility] Comment on above: Performed By: #### C BCMAN ####[facility] Dfyrtvcxre[address] [place] [id number]. Joo Hansen CULTURE SPUTUMon 08-25-2022 CULTURE SPUTUM Culture Observations : NORMAL RESPIRATORY ZACHARY. Normal [facility] Comment on above: Performed By: #### S PUTCX ####[facility] Yoaywzbaoe[address] [place] [id number]. Joo Hansen Covid-19 PCR (CVDTB)on 08-16 SARS-CoV-2 (COVID-19) RNA RAMANDEEP+probe Ql (Unsp spec) Detected Abnormal NOT DETECTED [facility] Comment on above: Result Comment: This test is not yet approved or cleared by the [place] FDA. When there are no FDA-approved or cleared tests available, and other criteria are met, FDA can make tests available under an emergency access mechanism called an Emergency Use Authorization (EUA). The EUA for this test is supported by the Manager Background of Health and Human Service's declaration that circumstances exist to justify the emergency use of in vitro diagnostics for the detection and/or diagnosis of the virus that causes COVID-19. This EUA will remain in effect for the duration of the COVID-19 declaration justifying emergency of IVDs, unless it is terminated or revoked by the FDA (after which the test may no longer be used). Performed By: #### C VDTBH ####[facility] Now[address]xorhj[address] [place] [address]Dr. Joo Hansen POINT OF CARE GLUCOSEon 08-16 Glucose [Mass/Vol] 417 mg/dL Critically high 74-106 [facility] Comment on above: Performed By: #### P OCGLUC ####[facility] Exkyjiqcjg577[address] [place], [place] [address]Dr. Joo Hansen Glucose [Mass/Vol] 409 mg/dL Critically high 74-106 [facility] Comment on above: Performed By: #### P OCGLUC ####[facility] Zksmjdeuqm4188 [place] [address]Dr. Joo Tyrone Glucose [Mass/Vol] 277 mg/dL Critically high 74-106 [facility] Comment on above: Performed By: #### P OCGLUC ####[facility] Onhniqonwb8210[address] [place], [place] [address]Dr. Joo Tyrone PROF CHEM 8 (BAS METB)on Anion gap [Moles/Vol] 16.4 mmol/L Normal [facility] Comment on above: Performed By: #### B MP ####[facility] Oolnjdohrc6397[address] [place], [place] [address]Dr. Joo Hansen Calcium [Mass/Vol] 8.7 mg/dL Normal 8.5-10.1 [facility] Comment on above: Performed By: #### B MP ####[facility] Elkncmrpyu9[address] [place], [place] [address]Dr. Joo Hansen Chloride [Moles/Vol] 103 mmol/L Normal 98-107 [facility] Comment on above: Performed By: #### B MP ####[facility] Ftsaenricb33[address] [place], [place] [address]Dr. Joo Hansen CO2 [Moles/Vol] 23.1 mmol/L Normal 21.0-32.0 [facility] Comment on above: Performed By: #### B MP ####[facility] Rlffvgejwg1955[address] [place], [place] [address]Dr. Joo Hansen Creatinine [Mass/Vol] 0.64 mg/dL Normal 0.55-1.02 [facility] Comment on above: Performed By: #### B MP ####[facility] Zhojckvvmg8855[address] [place], [place] [address]Dr. Joo Hansen EGFR-AF MOSOTHO >60 Normal >=60 [facility] Comment on above: Performed By: #### B MP ####[facility] Rpcbaqdviv9970[address] [place], [place] [address]Dr. Joo Hansen EGFR-NON AF MOSOTHO >60 Normal >=60 [facility] Comment on above: Performed By: #### B MP ####[facility] Jqfwphaase218[address] [place], [place] [address]Dr. Joo Hansen Glucose [Mass/Vol] 328 mg/dL Critically high 74-106 [facility] Comment on above: Performed By: #### B MP ####[facility] Jsmsghlsnl275[address] [place], [place] [address]Dr. Joo Hansen Potassium [Moles/Vol] 3.5 mmol/L Normal 3.5-5.1 [facility] Comment on above: Performed By: #### B MP ####[facility] Dfgwrjeurf9313[address] [place], [place] [address]Dr. Joo Hansen Sodium [Moles/Vol] 139 mmol/L Normal 136-145 [facility] Comment on above: Performed By: #### B MP ####[facility] Aqrrwqfefb070[address] [place], [place] [address]Dr. Joo Hansen Urea nitrogen [Mass/Vol] 15.0 mg/dL Normal 7.0-18.0 [facility] Comment on above: Performed By: #### B MP ####[facility] Qlyhcpvaem9817[address] [place], [place] [address]Dr. Joo Hansen Urea nitrogen/Creatinine [Mass ratio] 23.4 mg/mg Normal [facility] Comment on above: Performed By: #### B MP ####[facility] Mbmcaiubyw165[address] [place], [place] [address]Dr. Joo Hansen CBC AUTO DIFFon 08-24-2022 BASO # 0.0 103/ul Normal 0.0-0.1 [facility] Comment on above: Performed By: #### C BC ####[facility] Mhvkgfaidr3100[address] [place], [place] [address]Dr. Joo Hansen Basophils/100 WBC (Bld) 0.2 % Normal 0.2-2.0 [facility] Comment on above: Performed By: #### C BC ####[facility] Pymjeflnjb908[address] [place], [place] [address]Dr. Joo Hansen EO # 0.1 103/ul Normal 0.0-0.7 [facility] Comment on above: Performed By: #### C BC ####[facility] Zrualdjbpk9507[address] [place], [place] [address]Dr. Joo Hansen Eosinophils/100 WBC (Bld) 0.7 % Critically low 0.9-7.0 [facility] Comment on above: Performed By: #### C BC ####[facility] Fihrcyavvd0[address] [place] [address]Dr. Joo Hansen Erythrocyte distribution width (RBC) [Ratio] 17.3 % Critically high 11.0-15.0 [facility] Comment on above: Performed By: #### C BC ####[facility] Gapbclxiqs198[address] [place], [place] [address]Dr. Joo Hansen Hematocrit (Bld) [Volume fraction] 32.8 % Critically low 36.0-48.0 [facility] Comment on above: Performed By: #### C BC ####[facility] Qvbrfgwdke0427[address] [place], [place] [address]Dr. Joo Hansen Hemoglobin (Bld) [Mass/Vol] 11.7 g/dL Critically low 12.0-16.0 [facility] Comment on above: Performed By: #### C BC ####[facility] Lrqwrppctc596188 [address] [place], [place] [address]Dr. Joo Hansen IG # 0.05 10e3/ul Critically high 0.00-0.03 [facility] Comment on above: Performed By: #### C BC ####[facility] Wexnldfkba0532[address] [place], [place] [address]Dr. Joo Hansen IG % 0.6 % Critically high 0.0-0.5 [facility] Comment on above: Performed By: #### C BC ####[facility] Eegfzcfplc7847[address] [place], [place] [address]Dr. Joo Hansen LYMPH # 1.7 103/ul Normal 1.2-3.8 [facility] Comment on above: Performed By: #### C BC ####[facility] Fcfhjniijn338[address] [place], [place] [address]Dr. Joo Hansen Lymphocytes/100 WBC (Bld) 20.0 % Critically low 20.5-60.0 [facility] Comment on above: Performed By: #### C BC ####[facility] [address]fs[address]yciy[address] [place] [address]Dr. Joo Tyrone MANUAL DIFF REQ NO Normal [facility] Comment on above: Performed By: #### C BC ####[facility] Dabgvmqgoi380[address] [place] [address]Dr. Joo Hansen MCH (RBC) [Entitic mass] 26.8 pg Normal 26.7-34.0 [facility] Comment on above: Performed By: #### C BC ####[facility] Xlugfzkfmz9[address] [place], [place] [address]Dr. Joo Tyrone MCHC (RBC) [Mass/Vol] 35.7 g/dL Critically high 29.9-35.2 [facility] Comment on above: Performed By: #### C BC ####[facility] Sgpzxenvbs[address] [place], [place] [address]Dr. Joo Tyrone MCV (RBC) [Entitic vol] 75.2 fL Critically low 81.0-99.0 [facility] Comment on above: Performed By: #### C BC ####[facility] Fqzdjlezuj[address] [place], [place] [address]Dr. Joo Tyrone MONO # 0.8 103/ul Normal 0.3-0.8 [facility] Comment on above: Performed By: #### C BC ####[facility] Sdtflpbrxd3640[address] [place], [place] [address]Dr. Maria De Jesusfausto Hansen Monocytes/100 WBC (Bld) 9.8 % Normal 1.7-12.0 [facility] Comment on above: Performed By: #### C BC ####[facility] Fdyjvqitxr1860[address] [place], [place] [address]Dr. Joo Hansen NEUT # 5.8 103/ul Normal 1.4-6.5 [facility] Comment on above: Performed By: #### C BC ####[facility] Pxrqysdwax124[address] [place], [place] [address]Dr. Joo Tyrone Neutrophils/100 WBC (Bld) 68.7 % Normal 43.0-75.0 [facility] Comment on above: Performed By: #### C BC ####[facility] [address]mh[address] [place] [address]Nh. Joo Hansen Platelet mean volume (Bld) [Entitic vol] 8.6 fL Critically low 9.5-13.5 [facility] Comment on above: Performed By: #### C BC ####[facility] [address]uf[address]ctggg[address] [place] [address]Dr. Joo Hansen PLT 241 103/ul Normal 150-450 [facility] Comment on above: Performed By: #### C BC ####[facility] Dymzanjkbo6[address] [place] [address]Dr. Joo Hansen RBC 4.36 106/ul Normal 4.20-5.40 [facility] Comment on above: Performed By: #### C BC ####[facility] Ddgstgfcsy364[address] [place] [address]Dr. Joo Hansen WBC 8.5 103/ul Normal 4.0-11.0 [facility] Comment on above: Performed By: #### C BC ####[facility] F[address]zwxs38[address] [place] [address]Dr. Joo Hansen CULTURE BLOODon 08-24-2022 Microscopic examination of blood, culture Culture Observations: NO GROWTH AT 5 DAYS. Normal [facility] Comment on above: Performed By: #### B LDCX2 ####[facility] Xmyllqnaig18[address] [place] [address]Dr. Joo Hansen Cov[facility]-19 PCR ([facility]on SARS-CoV-2 (COVID-19) RNA RAMANDEEP+probe Ql (Unsp spec) Detected Abnormal NOT DETECTED [facility] Comment on above: Result Comment: This test is not yet approved or cleared by the [place] FDA. When there are no FDA-approved or cleared tests available, and other criteria are met, FDA can make tests available under an emergency access mechanism called an Emergency Use Authorization (EUA). The EUA for this test is supported by the Manager Background of Health and Human Service's declaration that circumstances exist to justify the emergency use of in vitro diagnostics for the detection and/or diagnosis of the virus that causes COVID-19. This EUA will remain in effect for the duration of the COVID-19 declaration justifying emergency of IVDs, unless it is terminated or revoked by the FDA (after which the test may no longer be used). Performed By: #### C VDTBH ####[facility] [address]ytwkxynq14[address] [place] [address]DrDonald Hansen D-DIMERon 08-24-2022 D-DIMER 0.29 mg/L FEU Normal <=0.59 [facility] Comment on above: Performed By: #### D DIM ####[facility] Saoprfsezx24[address] [place] [address]DrDonald Hansen D-DIMER COMMENTS SEE BELOW Normal [facility] Comment on above: Result Comment: Incr eases in D-Dimer concentration observed with thromboembolic events can be variable due to localization, size, and age of the thrombus. Therefore, a thromboembolic event cannot be diagnosed with certainty on the basis of the reference range. D-Dimers may also be elevated for a variety of disorders including: advanced age, , coronary disease, cancer, liver disease, infection, inflammation, hematoma, DIC, trauma, post-surgery, diabetes, thrombolytic or anticoagulant therapy, stress, and generalized hospitalization. Performed By: #### D DIM ####[facility] Ipjwfixlkl[address] [place], [place] [address]DrDonald Hansen GLYCOHEMOGLOBIN A1Con 2022 ADA RECOMMENDATION SEE BELOW Normal [facility] Comment on above: Result Comment: ADA RECOMMENDED LIMIT 4.0 - 6.0 ADA THERAPEUTIC TARGET < 7.0 ACTION SUGGESTED > 7.0 Performed By: #### A 1C ####[facility] Puwswsjihj[address] [place] [address]DrDonald Hansen Glucose [Mass/Vol] 280 mg/dL Normal [facility] Comment on above: Performed By: #### A 1C ####[facility] Xhzxweskmf5311 [place] [address]DrDonald Hansen HbA1c (Bld) [Mass fraction] 11.4 % Critically high 4.5-6.2 [facility] Comment on above: Performed By: #### A 1C ####[facility] Rnofzprsju14[address] [place], [place] [address]DrDonald Hansen POINT OF CARE GLUCOSEon Glucose [Mass/Vol] 424 mg/dL Critically high 74-106 [facility] Comment on above: Performed By: #### P OCGLUC ####[facility] Wxebpxqelh04[address] [place] [id number]. Joo Hansen Glucose [Mass/Vol] 571 mg/dL Critically high 74-106 [facility] Comment on above: Result Comment: Resu lt Not Confirmed Performed By: #### P OCGLUC ####[facility] Nlnjckkoqt49[address] [place] [id number]. Joo Hansen PROF 14(COMP METB)on 023 Albumin [Mass/Vol] 3.0 g/dL Critically low 3.4-5.0 Th [facility] Comment on above: Performed By: #### C MP ####[facility] Dfyualpxpt9038 [place] [address]Dr. Joo Hansen Albumin/Globulin [Mass ratio] 0.9 {ratio} Normal [facility] Comment on above: Performed By: #### C MP ####[facility] Hrfvayqbxt1218 [place] [address]Dr. Joo Hansen ALP [Catalytic activity/Vol] 72 U/L Normal 46-116 [facility] Comment on above: Performed By: #### C MP ####[facility] Eesmjldirk3752 [place] [address]Dr. Joo Hansen ALT [Catalytic activity/Vol] 16 U/L Normal 14-59 [facility] Comment on above: Performed By: #### C MP ####[facility] Dmiizlipfl1754 [place] [address]Dr. Joo Hansen Anion gap [Moles/Vol] 12.5 mmol/L Normal [facility] Comment on above: Performed By: #### C MP ####[facility] Ruyllzxkom9[address] [place] [address]Dr. Joo Hansen AST [Catalytic activity/Vol] 11 U/L Critically low 15-37 [facility] Comment on above: Performed By: #### C MP ####[facility] Jrppyqjyks5543 [place] [id number]. Joo Hansen Bilirubin [Mass/Vol] 0.5 mg/dL Normal 0.2-1.0 [facility] Comment on above: Performed By: #### C MP ####[facility] Icbxokctxc2849 [place] [id number]. Joo Hansen Calcium [Mass/Vol] 8.8 mg/dL Normal 8.5-10.1 [facility] Comment on above: Performed By: #### C MP ####[facility] Doynwgneic84[address] [place] [id number]. Joo Hansen Chloride [Moles/Vol] 102 mmol/L Normal 98-107 [facility] Comment on above: Performed By: #### C MP ####[facility] Tdetsyuuqm4538 [place] [address]Dr. Joo Hansen CO2 [Moles/Vol] 27.9 mmol/L Normal 21.0-32.0 [facility] Comment on above: Performed By: #### C MP ####[facility] Hlankzmmvb33[address] [place] [id number]. Joo Hansen Creatinine [Mass/Vol] 0.46 mg/dL Critically low 0.55-1.02 [facility] Comment on above: Performed By: #### C MP ####[facility] Qzhbssaddo72[address] [place] [id number]. Joo Tyrone EGFR-AF MOSOTHO >60 Normal >=60 [facility] Comment on above: Performed By: #### C MP ####[facility] Lklyjneihp6564 [place] [id number]. Joo Tyrone EGFR-NON AF MOSOTHO >60 Normal >=60 [facility] Comment on above: Performed By: #### C MP ####[facility] Tzbmwbjdro9412[address] [place], [place] [address]Dr. Joo Hansen Globulin (S) [Mass/Vol] 3.2 g/dL Normal [facility] Comment on above: Performed By: #### C MP ####[facility] Msewvmvess[address] [place], [place] [address]Dr. Joo Hansen Glucose [Mass/Vol] 186 mg/dL Critically high 74-106 [facility] Comment on above: Performed By: #### C MP ####[facility] Cvbzclpuqz1547 [place] [address]Dr. Joo Hansen Potassium [Moles/Vol] 3.4 mmol/L Critically low 3.5-5.1 [facility] Comment on above: Performed By: #### C MP ####[facility] Kggonuawla3775[address] [place], [place] [address]Dr. Joo Hansen Protein [Mass/Vol] 6.2 g/dL Critically low 6.4-8.2 Th [facility] Comment on above: Performed By: #### C MP ####[facility] Ildybhrnjg2825[address] [place], [place] [address]Dr. Joo Hansen Sodium [Moles/Vol] 139 mmol/L Normal 136-145 [facility] Comment on above: Performed By: #### C MP ####[facility] Dggoyahrqh8633[address] [place], [place] [address]Dr. Joo Hansen Urea nitrogen [Mass/Vol] 13.0 mg/dL Normal 7.0-18.0 [facility] Comment on above: Performed By: #### C MP ####[facility] Hoiesctpqj3911[address] [place], [place] [address]Dr. Joo Hansen Urea nitrogen/Creatinine [Mass ratio] 28.3 mg/mg Normal [facility] Comment on above: Performed By: #### C MP ####[facility] Qlrrucqctk794[address] [place], [place] [address]Dr. Joo Hansen UA RANDOM W/MICROSCOPICon BACTERIA NONE SEEN Normal NONE SEEN [facility] Comment on above: Performed By: #### U AMIC ####[facility] Rdvyximhka5264[address] [place], [place] [address]Dr. Joo Hansen Bilirubin Ql (U) Negative Normal NEGATIVE [facility] Comment on above: Performed By: #### U AMIC ####[facility] Lnlignozwj1830[address] [place], [place] [address]Dr. Joo Hansen CAST NONE SEEN Normal NONE SEEN [facility] Comment on above: Performed By: #### U AMIC ####[facility] Myylxxijaw77[address] [place] [address]Dr. Joo Hansen Clarity (U) CLEAR Normal CLEAR [facility] Comment on above: Performed By: #### U AMIC ####[facility] Zjkwmgzeeg4233 [place] [address]Dr. Joo Hansen Color (U) YELLOW Normal YELLOW [facility] Comment on above: Performed By: #### U AMIC ####[facility] Xviicrdxjh6882 [place] [address]Dr. Joo Hansen Crystals LM Nom (Urine sed) NONE SEEN Normal NONE SEEN [facility] Comment on above: Performed By: #### U AMIC ####[facility] Atvugvvbvo6630[address] [place], [place] [address]Dr. Maria De Jesusfausto Hansen Epithelial cells LM Ql (Urine sed) FEW Abnormal NONE SEEN /RARE [facility] Comment on above: Performed By: #### U AMIC ####[facility] Hpxvsfwwwh639[address] [place], [place] [address]Dr. Joo Hansen Glucose Ql (U) 500 mg/dl Abnormal NEGATIVE [facility] Comment on above: Performed By: #### U AMIC ####[facility] Arbpxbhvxl9528[address] [place], [place] [address]Dr. Joo Hansen Hemoglobin Ql (U) Negative Normal NEGATIVE [facility] Comment on above: Performed By: #### U AMIC ####[facility] Uyuuvknunw9079[address] [place], [place] [address]Dr. Joo Hansen Ketones Ql (U) TRACE Abnormal NEGATIVE [facility] Comment on above: Performed By: #### U AMIC ####[facility] Bfxvsvoywj3066[address] [place], [place] [address]Dr. Joo Hansen LEUKOCYTES Negative Normal NEGATIVE [facility] Comment on above: Performed By: #### U AMIC ####[facility] Szvrjmyfgb597[address] [place], [place] [address]Dr. Joo Hansen MUCOUS NONE SEEN Normal NONE SEEN [facility] Comment on above: Performed By: #### U AMIC ####[facility] Fzolntummx2845 [place] [address]Dr. Joo Hansen Nitrite Ql (U) Negative Normal NEGATIVE [facility] Comment on above: Performed By: #### U AMIC ####[facility] Zyihocryjo4[address] [place] [address]Dr. Joo Hansen pH (U) 6.0 [pH] Normal 5-9 [facility] Comment on above: Performed By: #### U AMIC ####[facility] Ctheckzour9[address] [place], [place] [address]Dr. Joo Hansen RBC NONE SEEN Abnormal 0-2 [facility] Comment on above: Performed By: #### U AMIC ####[facility] Oydayrowfz9633[address] [place], [place] [address]Dr. Joo Hansen SPEC GRAVITY 1.025 Normal 1.005-<=1.025 [facility] Comment on above: Performed By: #### U AMIC ####[facility] Mxizvfvhbf1223[address] [place], [place] [address]Dr. Joo Hansen UA PROTEIN TRACE Normal NEGATIVE/ TRACE [facility] Comment on above: Performed By: #### U AMIC ####[facility] Twtozcdkjk[address] [place], [place] [address]Dr. Joo Hansen Urobilinogen Qn (U) 2.0 {Damon'U}/dL Abnormal 0.2 - 1. 0 [facility] Comment on above: Performed By: #### U AMIC ####[facility] Ncjsvgifmt38[address] [place], [place] [address]Dr. Joo Hansen WBC NONE SEEN Normal NONE SEEN [facility] Comment on above: Performed By: #### U AMIC ####[facility] Tcvrximnkl9820[address] [place], [place] [address]Dr. Joo Hansen XR CHEST 2 Von 08-24-2022 XR CHEST 2 V Normal [facility] Covid-19 PCR ([facility])on 07-17 SARS-CoV-2 (COVID-19) RNA RAMANDEEP+probe Ql (Unsp spec) Detected Critically abnormal NOT DETECTED [facility] Comment on above: Result Comment: This test is not yet approved or cleared by the [place] FDA. When there are no FDA-approved or cleared tests available, and other criteria are met, FDA can make tests available under an emergency access mechanism called an Emergency Use Authorization (EUA). The EUA for this test is supported by the Manager Background of Health and Human Service's (HHS's) declaration that circumstances exist to justify the emergency use of in vitro diagnostics for the detection and/or diagnosis of the virus that causes COVID-19. This EUA will remain in effect (meaning this test can be used) for the duration of the COVID-19 declaration justifying emergency of IVDs, unless it is terminated or revoked by FDA (after which the test may no longer be used). Performed By: #### [facility] ####[facility] [address] [place], [place] [address]Dr. Maria De Jesusfausto Hansen CBC AUTO DIFFon 08-09-2022 BASO # 0.1 103/ul Normal 0.0-0.1 [facility] Comment on above: Performed By: #### C BC ####[facility] [address] [place], [place] [address]Dr. Maria De Jesusfausto Hansen Basophils/100 WBC (Bld) 0.9 % Normal 0.2-2.0 [facility] Comment on above: Performed By: #### C BC ####[facility] N[address] [place], [place] [address]Dr. Maria De Jesusfausto Hansen EO # 0.1 103/ul Normal 0.0-0.7 [facility] Comment on above: Performed By: #### C BC ####[facility] K[address] [place], [place] [address]Dr. Maria De Jesusfausto Hansen Eosinophils/100 WBC (Bld) 1.4 % Normal 0.9-7.0 [facility] Comment on above: Performed By: #### C BC ####[facility] [address] [place], [place] [address]Dr. Maria De Jesusfausto Hansen Erythrocyte distribution width (RBC) [Ratio] 17.3 % Critically high 11.0-15.0 [facility] Comment on above: Performed By: #### C BC ####[facility] [address] [place] [id number]. Joo Hansen Hematocrit (Bld) [Volume fraction] 38.1 % Normal 36.0-48.0 [facility] Comment on above: Performed By: #### C BC ####[facility] [address] [place] [address]Dr. Joo Hansen Hemoglobin (Bld) [Mass/Vol] 12.8 g/dL Normal 12.0-16.0 [facility] Comment on above: Performed By: #### C BC ####[facility] [address] [place] [address]Dr. Joo Tyrone IG # 0.08 10e3/ul Critically high 0.00-0.03 [facility] Comment on above: Performed By: #### C BC ####[facility] [address] [place] [address]DrDonald Hansen IG % 0.9 % Critically high 0.0-0.5 [facility] [place] [facility] Comment on above: Performed By: #### C BC ####[facility] [address] [place] [address]DrDonald Joo Tyrone LYMPH # 1.1 103/ul Critically low 1.2-3.8 [facility] Comment on above: Performed By: #### C BC ####[facility] [address] [place] [address]DrDonald Maria De Jesusfausto Hansen Lymphocytes/100 WBC (Bld) 13.2 % Critically low 20.5-60.0 [facility] Comment on above: Performed By: #### C BC ####[facility] [address] [place] [address]DrDonald Maria De Jesusfausto Hansen MANUAL DIFF REQ NO Normal [facility] Comment on above: Performed By: #### C BC ####[facility] [address] [place] [address]DrDonald Maria De Jesusfausto Hansen MCH (RBC) [Entitic mass] 27.2 pg Normal 26.7-34.0 [facility] Comment on above: Performed By: #### C BC ####[facility] [address] [place] [id number]. Joo Tyrone MCHC (RBC) [Mass/Vol] 33.6 g/dL Normal 29.9-35.2 [facility] Comment on above: Performed By: #### C BC ####[facility] [address] [place] [id number] Hansen MCV (RBC) [Entitic vol] 80.9 fL Critically low 81.0-99.0 [facility] Comment on above: Performed By: #### C BC ####[facility] [address] [place] [id number] Hansen MONO # 1.1 103/ul Critically high 0.3-0.8 [facility] Comment on above: Performed By: #### C BC ####[facility] [address] [place] [address]DrDonald Hansen Monocytes/100 WBC (Bld) 12.5 % Critically high 1.7-12.0 [facility] Comment on above: Performed By: #### C BC ####[facility] [address] [place], [place] [address]DrDonald Hansen NEUT # 6.0 103/ul Normal 1.4-6.5 [facility] Comment on above: Performed By: #### C BC ####[facility] [address] [place] [id number] Hansen Neutrophils/100 WBC (Bld) 71.1 % Normal 43.0-75.0 [facility] Comment on above: Performed By: #### C BC ####[facility] [address] [place], [place] [address]DrDonald Hansen Platelet mean volume (Bld) [Entitic vol] 9.2 fL Critically low 9.5-13.5 [facility] Comment on above: Performed By: #### C BC ####[facility] [address] [place] [id number] Hansen PLT 261 103/ul Normal 150-450 [facility] Comment on above: Performed By: #### C BC ####[facility] [address] [place], [place] [address]Rb. Joo Hansen RBC 4.71 106/ul Normal 4.20-5.40 [facility] Comment on above: Performed By: #### C BC ####[facility] [address] [place], [place] [address]Eh. Joo Hansen WBC 8.5 103/ul Normal 4.0-11.0 [facility] Comment on above: Performed By: #### C BC ####[facility] [address] [place] [id number]. Joo Hansen Covid-19 PCR ([facility])on 07-17 SARS-CoV-2 (COVID-19) RNA RAMANDEEP+probe Ql (Unsp spec) Detected Critically abnormal NOT DETECTED [facility] Comment on above: Result Comment: This test is not yet approved or cleared by the [place] FDA. When there are no FDA-approved or cleared tests available, and other criteria are met, FDA can make tests available under an emergency access mechanism called an Emergency Use Authorization (EUA). The EUA for this test is supported by the [place] of Health and Human Service's declaration that circumstances exist to justify the emergency use of in vitro diagnostics for the detection and/or diagnosis of the virus that causes COVID-19. This EUA will remain in effect for the duration of the COVID-19 declaration justifying emergency of IVDs, unless it is terminated or revoked by the FDA (after which the test may no longer be used). Performed By: #### C VDTBH ####[facility] [address] [place] [id number]. Joo Hansen INFLUENZA A AND B AGon 08-09 INFLUANEGH SEE BELOW Normal [facility] Comment on above: Result Comment: Nega tive for Flu A protein angiten. Infection due to Flu A cannot be ruled out. Flu A angiten in the sample may be below the detection limit of the test. Performed By: #### I NFLUAB ####[facility] [address] [place] [address]Dr. Joo Hansen INFLUBNEGH SEE BELOW Normal [facility] Comment on above: Result Comment: Nega tive for Flu B protein antigen. Infection due to Flu B cannot be ruled out. Flu B antigen in the sample may be below the detection limit of the test. Performed By: #### I NFLUAB ####[facility] [address] [place] [address]Dr. Joo Hansen INFLUENZA A AG Negative Normal NEGATIVE SEE COMMENT [facility] Comment on above: Performed By: #### I NFLUAB ####[facility] Xnc[address] [place], [place] [address]Dr. Joo Hansen INFLUENZA B AG Negative Normal NEGATIVE SEE COMMENT [facility] Comment on above: Performed By: #### I NFLUAB ####[facility] [address] [place], [place] [address]Dr. Joo Hansen INTERNAL CONTROLS Within Normal Limits Normal Wi thin Normal Limits [facility] Comment on above: Performed By: #### I NFLUAB ####[facility] Nkcaxmcs[address] [place], [place] [address]Dr. Joo Hansen PROF CHEM 8 (BAS METB)on Anion gap [Moles/Vol] 12.3 mmol/L Normal [facility] Comment on above: Performed By: #### B MP ####[facility] On[address] [place], [place] [address]Dr. Joo Hansen Calcium [Mass/Vol] 9.1 mg/dL Normal 8.5-10.1 [facility] Comment on above: Performed By: #### B MP ####[facility] Wjnoczigub[address] [place], [place] [address]Dr. Joo Hansen Chloride [Moles/Vol] 99 mmol/L Normal 98-107 [facility] Comment on above: Performed By: #### B MP ####[facility] U[address] [place], [place] [address]Dr. Joo Hansen CO2 [Moles/Vol] 26.5 mmol/L Normal 21.0-32.0 [facility] Comment on above: Performed By: #### B MP ####[facility] [address] [place] [id number]. Joo Tyrone Creatinine [Mass/Vol] 0.61 mg/dL Normal 0.55-1.02 [facility] Comment on above: Performed By: #### B MP ####[facility] [address] [place] [address]Dr. Joo Tyrone EGFR-AF MOSOTHO >60 Normal >=60 [facility] Comment on above: Performed By: #### B MP ####[facility] [address] [place] [address]Dr. Joo Hansen EGFR-NON AF MOSOTHO >60 Normal >=60 [facility] Comment on above: Performed By: #### B MP ####[facility] G[address] [place], [place] [address]Dr. Joo Hansen Glucose [Mass/Vol] 214 mg/dL Critically high 74-106 [facility] Comment on above: Performed By: #### B MP ####[facility] [address] [place], [place] [address]Dr. Joo Hansen Potassium [Moles/Vol] 3.8 mmol/L Normal 3.5-5.1 [facility] Comment on above: Performed By: #### B MP ####[facility] [address] [place], [place] [address]Dr. Joo Hansen Sodium [Moles/Vol] 134 mmol/L Critically low 136-145 Th [facility] Comment on above: Performed By: #### B MP ####[facility] [address] [place], [place] [address]Dr. Joo Hansen Urea nitrogen [Mass/Vol] 8.0 mg/dL Normal 7.0-18.0 [facility] Comment on above: Performed By: #### B MP ####[facility] [address] [place], [place] [address]Dr. Joo Hansen Urea nitrogen/Creatinine [Mass ratio] 13.1 mg/mg Normal [facility] Comment on above: Performed By: #### B MP ####[facility] [address] [place], [place] [address]DrDonald Hansen XR CHEST 1 Von 08-09-2022 XR CHEST 1 V Normal [facility] BASIC METABOLIC PANELon 11-2 Anion gap [Moles/Vol] 16 mmol/L Normal 10-20 [facility] Comment on above: Performed By: #### 8 2948 #### NURSING GLUCOSE PROGRAM [address] [place], [address] Calcium [Mass/Vol] 8.7 mg/dL Normal 8.4-10.4 [facility] Comment on above: Performed By: #### 8 2948 #### NURSING GLUCOSE PROGRAM [address] [place], [address] Chloride [Moles/Vol] 105 mmol/L Normal 97-111 [facility] Comment on above: Performed By: #### 8 2948 #### NURSING GLUCOSE PROGRAM [address] [place], [address] CO2 [Moles/Vol] 22 mmol/L Normal 21-30 [facility] Comment on above: Performed By: #### 8 2948 #### NURSING GLUCOSE PROGRAM [address] [place], [address] Creatinine [Mass/Vol] 0.47 mg/dL Low 0.50-1.10 [facility] Comment on above: Performed By: #### 8 2948 #### NURSING GLUCOSE PROGRAM [address] [place], [address] ESTIMATED GFR (CKD-EPI) 104 mL/min/1.73sqm Normal >=60 [facility] Comment on above: Result Comment: 2020 CKD EPI Equation using Creatinine without Race Comment: Estimated glomerular filtration rate (eGFR) is calculated without a race coefficient. Values should be interpreted in the context of the patient's full clinical presentation. Reference: 1. Pedrito C, Wilfrid M, Lupis DC, et al.. A Unifying Approach for GFR Estimation: Recommendations of the NKF-ASN Task Force on Reassessing the Inclusion of Race in Diagnosing Kidney Disease. [place] Journal of Kidney Diseases 202;79(2):268-88.e1. 2. N Engl J Med 2020 Vol. 385 Issue 19 Pages 5601-0399 Performed By: #### 8 2948 #### NURSING GLUCOSE PROGRAM [address] [place], [address] Glucose [Mass/Vol] 127 mg/dL High 80-116 [facility] Comment on above: Performed By: #### 8 2948 #### NURSING GLUCOSE PROGRAM [address] [place], [address] Potassium [Moles/Vol] 3.9 mmol/L Normal 3.3-5.3 [facility] Comment on above: Performed By: #### 8 2948 #### NURSING GLUCOSE PROGRAM [address] [place], [address] Sodium [Moles/Vol] 139 mmol/L Normal 135-148 [facility] Comment on above: Performed By: #### 8 2948 #### NURSING GLUCOSE PROGRAM [address] [place], [address] Urea nitrogen [Mass/Vol] 11 mg/dL Normal 8-22 [facility] Comment on above: Performed By: #### 8 2948 #### NURSING GLUCOSE PROGRAM [address] [place], [address] Basic metabolic 2000 panelon 07-06-2022 Anion gap [Moles/Vol] 16 mmol/L 10 - 20 [facility] Calcium [Mass/Vol] 8.7 mg/dL 8.4 - 10.4 mg/dL [facility] Chloride [Moles/Vol] 105 mmol/L 97 - 111 mmol/L [facility] CO2 [Moles/Vol] 22 mmol/L 21 - 30 mmol/L [facility] Creatinine [Mass/Vol] 0.47 mg/dL Low 0.50 - 1.10 mg/dL [facility] GFR/1.73 sq M.predicted MDRD (S/P/Bld) [Vol rate/Area] 104 mL/min/{1.73_m2} - PINF [facility] Comment on above: 2020 CKD EPI Equatio n using Creatinine without Race Comment: Estimated glomerular filtration rate (eGFR) is calculated without a race coefficient. Values should be interpreted in the context of the patient's full clinical presentation. Reference: 1. Pedrito Chambers, Wilfrid M, Lupis ARGUETA, et al.. A Unifying Approach for GFR Estimation: Recommendations of the NKF-ASN Task Force on Reassessing the Inclusion of Race in Diagnosing Kidney Disease. [place] Journal of Kidney Diseases 2022;79(2):268-88.e1. 2. N Engl J Med 1 Vol. 385 Issue 19 Pages 1494-2304 Glucose [Mass/Vol] 127 mg/dL High 80 - 116 mg/dL [facility] Interpretation and review of laboratory results Abnormal [facility] Potassium [Moles/Vol] 3.9 mmol/L 3.3 - 5.3 mmol/L [facility] Sodium [Moles/Vol] 139 mmol/L 135 - 148 mmol/L [facility] Urea nitrogen [Mass/Vol] 11 mg/dL 8 - 22 mg/dL [facility] CBC panel Auto (Bld)on 07-06 Erythrocyte distribution width (RBC) [Ratio] 20.8 % High 11.5 - 14.5 % [facility] Hematocrit (Bld) [Volume fraction] 33.5 % Low 36.0 - 46.0 % [facility] Hemoglobin (Bld) [Mass/Vol] 11.0 g/dL Low 12.0 - 15.0 g/dL [facility] Interpretation and review of laboratory results Abnormal [facility] MCH (RBC) [Entitic mass] 26.6 pg 26.0 - 34.0 pg [facility] MCHC (RBC) [Mass/Vol] 32.8 g/dL 32.0 - 35.9 g/dL [facility] MCV (RBC) [Entitic vol] 81 fL 80 - 100 fL [facility] Platelet mean volume (Bld) [Entitic vol] 7.1 fL Low 7.5 - 11.2 fL [facility] Platelets (Bld) [#/Vol] 285 10*3/uL 150 - 400 K/uL [facility] RBC (Bld) [#/Vol] 4.12 10*6/uL [facility] WBC (Bld) [#/Vol] 8.5 10*3/uL 4.5 - 11.5 K/uL [facility] COMPLETE [facility] COUNTon 07-06 Erythrocyte distribution width (RBC) [Ratio] 20.8 % High 11.5-14.5 [facility] Comment on above: Performed By: #### 8 2968 #### NURSING GLUCOSE PROGRAM [address] [place] [address], [address] Hematocrit (Bld) [Volume fraction] 33.5 % Low 36.0-46.0 [facility] Comment on above: Performed By: #### 8 2948 #### NURSING GLUCOSE PROGRAM [address] [place], [address] Hemoglobin (Bld) [Mass/Vol] 11.0 g/dL Low 12.0-15.0 [facility] Comment on above: Performed By: #### 8 2948 #### NURSING GLUCOSE PROGRAM [address] [place], [address] MCH (RBC) [Entitic mass] 26.6 pg Normal 26.0-34.0 [facility] Comment on above: Performed By: #### 8 2948 #### NURSING GLUCOSE PROGRAM [address] [place], [address] MCHC (RBC) [Mass/Vol] 32.8 g/dL Normal 32.0-35.9 [facility] Comment on above: Performed By: #### 8 2948 #### NURSING GLUCOSE PROGRAM [address] [place], [address] MCV (RBC) [Entitic vol] 81 fL Normal 80-100 [facility] Comment on above: Performed By: #### 8 2948 #### NURSING GLUCOSE PROGRAM [address] [place], [address] Platelet mean volume (Bld) [Entitic vol] 7.1 fL Low 7.5-11.2 [facility] Comment on above: Performed By: #### 8 2948 #### NURSING GLUCOSE PROGRAM [address] [place], [address] Platelets (Bld) [#/Vol] 285 10*3/uL Normal 150-400 [facility] Comment on above: Performed By: #### 8 9428 #### NURSING GLUCOSE PROGRAM [address] [place], [address] RBC (Bld) [#/Vol] 4.12 10*6/uL Normal 4.00-5.20 [facility] Comment on above: Performed By: #### 8 2948 #### NURSING GLUCOSE PROGRAM [address] [place], [address] WBC (Bld) [#/Vol] 8.5 10*3/uL Normal 4.5-11.5 [facility] Comment on above: Performed By: #### 8 5378 #### NURSING GLUCOSE PROGRAM [address] [place], [address] Care Plan Noteon 07-06-2022 Weeder Authentication Interface Message Text Problem: Routine Care: Goal: Patient care will be managed and maintained throughout hospital stay per unit specific routine care procedure Outcome: Completed Problem: Altered Elimination: Goal: Establishment of normal bowel function will be achieved and maintained Outcome: Completed Problem: Fluid and Electrolyte Imbalance: Goal: Adequate fluid and electrolyte balance will be achieved and maintained Outcome: Completed Problem: VTE Prophylaxis: Goal: Will be free of DVT Outcome: Completed Problem: Acute Pain: Goal: Ability to identify pain intensity on a pain scale and rate it consistently will be achieved and maintained Outcome: Completed Goal: Understanding of proper administration and use of medicines will be achieved Outcome: Completed Problem: Risk for Infection: Goal: Risk for infection will be reduced Outcome: Completed Problem: Safety: Goal: Patient will remain free of falls during hospital stay Outcome: Completed Goal: Free from injury during hospitalization Outcome: Completed Problem: Discharge Planning: Goal: Discharge needs of the adult patient will be met Outcome: Completed Normal [facility] [employer]eder Authentication Interface Message Text Problem: Routine Care: Goal: Patient care will be managed and maintained throughout hospital stay per unit specific routine care procedure Outcome: Progressing Problem: Altered Elimination: Goal: Establishment of normal bowel function will be achieved and maintained Outcome: Progressing Problem: Fluid and Electrolyte Imbalance: Goal: Adequate fluid and electrolyte balance will be achieved and maintained Outcome: Progressing Problem: VTE Prophylaxis: Goal: Will be free of DVT Outcome: Progressing Problem: Acute Pain: Goal: Ability to identify pain intensity on a pain scale and rate it consistently will be achieved and maintained Outcome: Progressing Goal: Understanding of proper administration and use of medicines will be achieved Outcome: Progressing Problem: Risk for Infection: Goal: Risk for infection will be reduced Outcome: Progressing Problem: Safety: Goal: Patient will remain free of falls during hospital stay Outcome: Progressing Goal: Free from injury during hospitalization Outcome: Progressing Problem: Discharge Planning: Goal: Discharge needs of the adult patient will be met Outcome: Progressing Normal [facility] GLUCOSE, FINGERSTICK-IN OFFI CEon 07-06-2022 Glucose [Mass/Vol] 329 mg/dL High 80-116 [facility] Comment on above: Result Comment: Kylie monk RN, APN, MD Performed By: #### 8 2948 #### NURSING GLUCOSE PROGRAM [address] [place], [address] Glucose [Mass/Vol] 329 mg/dL High 80 - 116 mg/dL [facility] Comment on above: Notified DAVID BRIZUELA MD Interpretation and review of laboratory results Abnormal [facility] Glucose [Mass/Vol] 143 mg/dL High 80-116 [facility] Comment on above: Performed By: #### T S #### [facility] [address] [place], [address] Glucose [Mass/Vol] 143 mg/dL High 80 - 116 mg/dL [facility] Interpretation and review of laboratory results Abnormal [facility] Glucose [Mass/Vol] 175 mg/dL High 80-116 [facility] Comment on above: Performed By: #### 8 2948 ####NURSING GLUCOSE [id number] [place], [address] MAGNESIUMon 07-06-2022 Magnesium [Mass/Vol] 1.8 mg/dL Normal 1.6-2.8 [facility] Comment on above: Performed By: #### 8 2948 #### NURSING GLUCOSE PROGRAM [address] [place], [address] Magnesium [Mass/Vol] 1.8 mg/dL 1.6 - 2.8 mg/dL [facility] No Panel Informationon 07-06 Interpretation and review of laboratory results Normal [facility] PHOSPHORUSon 07-06-2022 Phosphate [Mass/Vol] 2.6 mg/dL Normal 2.3-4.2 [facility] Comment on above: Performed By: #### 8 2948 #### NURSING GLUCOSE PROGRAM [address] [place], [address] Phosphate [Mass/Vol] 2.6 mg/dL 2.3 - 4.2 mg/dL [facility] Progress Noteson 07-06-2022 Weeder Authentication Interface Message Text 07/06/22 1244 Discharge Note Discharge Time 1235 Discharged to: Home Mode of Transport Wheelchair Patient Follow-up and Care Follow-up scheduled;Follow-up recommended Patient Instructions Verbal AND written discharge instructions given AND reviewed;Diet AND activity;Symptom worsening Verbalized Understanding Patient Normal [facility] Weeder Authentication Interface Message Text [facility] OF ACUTE CARE SURGERY ------- GENERAL INFORMATION ------ EMERGENCY GENERAL SURGERY NOTE Patient Name: Johanna Macdonald Admission Date: 07/04/2022 Patient seen and examined on 07/06/2022 ----- INTERVAL HISTORY/EVENTS --- Background Narrative: 67F PMH Morales's esophagus, GI bleeding, HTN, DM, active >50 pack year smoking, bronchiectasis (no home O2), CT s/p stent x1 (2016, on ASA now), lap sarkis, hysterectomy, hernia repair x2-3, SBO x1 (cannot remember NG vs surgery) who is transferred 07/04 with SBO symptoms beginning 07/03. At OSH, WBC 15.6. Lipase, Hg, LFTs wnl. NG was placed prior to transport. CT A/P concerning for SBO, TP in anterior abdomen, possibly in hernia sac and possible multiple TP. At this time she is non-peritonitic and AFVSS. Will continue non-operative management and optimize patient as necessary for OR. Hospital Course/Procedures: 07/04/2022: Admitted for small bowel obstruction 07/05/2022: Gastrogaffin challenge, no evidence of SBO. NGT removed, CLD. 07/06/2022: Return of bowel function, tolerating PO intake. Possible discharge home. Events in last 24 hours: No acute events overnight. Denies nausea/vomiting, tolerating CLD. Will advance to regular as tolerated. Reports resolution of abdominal pain, return of bowel function following water soluble challenge. PHYSICAL EXAM 24 Hour Input/Output In: 2853.3 (38.6 mL/kg) [P.O.:480; I.V.:2303.3 (1.3 mL/kg/hr)] Out: 550 (7.4 mL/kg) [Urine:500 (0.3 mL/kg/hr); Drainage:50] Net: 2303.3 Weight: 73.9 kg Physical Exam: BP 136/51 (BP Location: right arm) Pulse 74 Temp 98.2 ???F (36.8 ???C) (Oral) Resp 18 Ht 4' 11 (1.499 m) Wt 163 lb (73.9 kg) SpO2 96% PF 120 L/min Comment: poor effort pain BMI 32.92 kg/m??? General: No acute distress, awake HEENT: NGT removed Cardiac: Non-tachycardic Pulmonary: Non-labored breathing. Symmetric chest rise. 2L NC at baseline. Abdomen: Soft, minimal tenderness, non-distended. No peritonitis. Reporting occasional epigastric squeezing, reproducible on palpation. Extremities: Moving all extremities spontaneously Skin: Warm, moist Neuro: Alert and oriented x 3 LABORATORY RESULTS (LAST 24 HOURS) 8.5 11.0 / 285 / 33.5 CBC: 07/06/2022: 6:23 AM 139 105 11 / 127 3.9 22 0.47 BMP: 07/06/2022: 5:04 AM IMAGING RESULTS - Last 24 hours (PERSONALLY REVIEWED) Abdominal XR 07/05: IMPRESSION: 1. No evidence of a small bowel obstruction. 2. Satisfactory position of the nasogastric tube. -------- DIAGNOSIS AND PLAN Diagnoses: Small Bowel Obstruction Ventral Hernia (Present on arrival) - multiple Assessment: oJhanna Macdonald is a 67F with PMH of HTN, T2DM, CAD (stent x1 2016, ASA81), hysterectomy, hernia repair x2-3, previous SBO, currently admitted for small bowel obstruction in the setting of a ventral hernia. Plan Neuro Analgesia: Tylenol 650 mg Q6H Resp Encourage IS Respiratory county assessor protocol Cardio Monitor Vitals EKG one time given cardiac history Continue home Lipitor, ASA GI Diet: Advance to regular Return of bowel function following Gastrogaffin challenge Continue scopolamine patch for nausea Renal BMP, Mg, Phos q24h Replace electrolytes PRN Endo Sliding Scale Insulin Prednisone 40 mg daily taken for COPD frequent exacerbations. replace with Solu-Medrol 40 mg IV daily while NPO Heme/ID CBC q24h No indication for abx MSK Progressive mobility Ppx SCDs, Lovenox Nexium 40 mg IVP BID Dipso: RNF, possible DC home later today. Plan was discussed with attending, Dr. Acevedo. Almaz Damon, SUPERVISOR [employer] Trauma and Acute Care Surgery BETO Fellow Pager: [phone] For urgent issues arising after 6PM, please page [phone] Supervisory Physician Note: I have personally performed a face to face diagnostic evaluation on this patient today. I have reviewed and agree with the care plan as listed above. History and exam by me shows: 67 year old woman with complex PSH and multiple admissions for SBO managed non-operatively. Passed SBFT yesterday with contrast in colon at 4 hours and tolerated clears. Tolerated regular diet today. Pain resolved. On exam abd is soft, NT, ND. Patient eager to go home. Okay for discharge today. No need for ACS follow-up. Emergency Department/Inpatient/Ob servation Split/Shared Documentation 07/06/2022, 1:40 PM MDM: I personally performed and obtained the entire medical decision making of this patient during this encounter and confirm the documentation of the entire encounter is accurate. I provided a substantive portion of the care of this patient. MD Ginger Montgomery MD FACS Division of Trauma, Critic (more content not included)... Normal [facility] [employer] BASIC METABOLIC PANELon 11-2 -2021 Anion gap [Moles/Vol] 16 mmol/L Normal 10-20 [facility] Comment on above: Performed By: #### C H8, PHOS, MG #### [facility] [address], [place], Calcium [Mass/Vol] 8.7 mg/dL Normal 8.4-10.4 [facility] [employer] [facility] Comment on above: Performed By: #### BREA Troncoso MG #### [facility] [address], [place], Chloride [Moles/Vol] 107 mmol/L Normal 97-111 [facility] Comment on above: Performed By: #### BREA Troncoso MG #### [facility] [address], [place], CO2 [Moles/Vol] 23 mmol/L Normal 21-30 [facility] Comment on above: Performed By: #### BREA Troncoso MG #### [facility] [address], [place], Creatinine [Mass/Vol] 0.52 mg/dL Normal 0.50-1.10 [facility] [employer] [facility] Comment on above: Performed By: #### BREA Troncoso MG #### [facility] [address], [place], ESTIMATED GFR (CKD-EPI) 102 mL/min/1.73sqm Normal >=60 [facility] Comment on above: Result Comment: 2020 CKD EPI Equation using Creatinine without Race Comment: Estimated glomerular filtration rate (eGFR) is calculated without a race coefficient. Values should be interpreted in the context of the patient's full clinical presentation. Reference: 1. Pedrito C, Wilfrid M, Lupis ARGUETA, et al.. A Unifying Approach for GFR Estimation: Recommendations of the NKF-ASN Task Force on Reassessing the Inclusion of Race in Diagnosing Kidney Disease. [place] Journal of Kidney Diseases 2021;79(2):268-88.e1. 2. N Engl J Med 1 Vol. 385 Issue 19 Pages 9728-6169 Performed By: #### BREA Troncoso MG #### [facility] [address], [place], Glucose [Mass/Vol] 142 mg/dL High 80-116 [facility] Comment on above: Performed By: #### C H8, PHOS, MG #### [facility] [address], [place], Potassium [Moles/Vol] 3.5 mmol/L Normal 3.3-5.3 [facility] Comment on above: Performed By: #### C H8, PHOS, MG #### [facility] [address], [place], Sodium [Moles/Vol] 142 mmol/L Normal 135-148 [facility] Comment on above: Performed By: #### C H8, PHOS, MG #### [facility] [address], [place], Urea nitrogen [Mass/Vol] 14 mg/dL Normal 8-22 [facility] Comment on above: Performed By: #### C H8, PHOS, MG #### [facility] [address], [place], Basic metabolic 2000 panelOr dered By: Starla Huntley on 07-05-2022 Anion gap [Moles/Vol] 16 mmol/L 10 - 20 [facility] Calcium [Mass/Vol] 8.7 mg/dL 8.4 - 10.4 mg/dL [facility] Chloride [Moles/Vol] 107 mmol/L 97 - 111 mmol/L [facility] CO2 [Moles/Vol] 23 mmol/L 21 - 30 mmol/L [facility] Creatinine [Mass/Vol] 0.52 mg/dL 0.50 - 1.10 mg/dL [facility] GFR/1.73 sq M.predicted MDRD (S/P/Bld) [Vol rate/Area] 102 mL/min/{1.73_m2} - PINF [facility] Comment on above: 2020 CKD EPI Equatio n using Creatinine without Race Comment: Estimated glomerular filtration rate (eGFR) is calculated without a race coefficient. Values should be interpreted in the context of the patient's full clinical presentation. Reference: 1. Pedrito Chambers, Wilfrid M, Lupis ARGUETA, et al.. A Unifying Approach for GFR Estimation: Recommendations of the NKF-ASN Task Force on Reassessing the Inclusion of Race in Diagnosing Kidney Disease. [place] Journal of Kidney Diseases 2021;79(2):268-88.e1. 2. N Engl J Med 2020 Vol. 385 Issue 19 Pages 1150-0465 Glucose [Mass/Vol] 142 mg/dL High 80 - 116 mg/dL [facility] Interpretation and review of laboratory results Abnormal [facility] Potassium [Moles/Vol] 3.5 mmol/L 3.3 - 5.3 mmol/L [facility] Sodium [Moles/Vol] 142 mmol/L 135 - 148 mmol/L [facility] Urea nitrogen [Mass/Vol] 14 mg/dL 8 - 22 mg/dL [facility] CBC panel Auto (Bld)on 07-05 Erythrocyte distribution width (RBC) [Ratio] 21.9 % High 11.5 - 14.5 % [facility] Hematocrit (Bld) [Volume fraction] 37.8 % 36.0 - 46.0 % [facility] Hemoglobin (Bld) [Mass/Vol] 12.1 g/dL 12.0 - 15.0 g/dL [facility] Interpretation and review of laboratory results Abnormal [facility] MCH (RBC) [Entitic mass] 26.2 pg 26.0 - 34.0 pg [facility] MCHC (RBC) [Mass/Vol] 32.0 g/dL 32.0 - 35.9 g/dL [facility] MCV (RBC) [Entitic vol] 82 fL 80 - 100 fL [facility] Platelet mean volume (Bld) [Entitic vol] 7.6 fL 7.5 - 11.2 fL [facility] Platelets (Bld) [#/Vol] 294 10*3/uL 150 - 400 K/uL [facility] RBC (Bld) [#/Vol] 4.62 10*6/uL [facility] WBC (Bld) [#/Vol] 8.0 10*3/uL 4.5 - 11.5 K/[facility]L [facility] COMPLETE BLOOD COUNTon 07-05 Erythrocyte distribution width (RBC) [Ratio] 21.9 % High 11.5-14.5 [facility] Comment on above: Performed By: #### C BC #### [facility] [address] [place], [id number] Hematocrit (Bld) [Volume fraction] 37.8 % Normal 36.0-46.0 [facility] Comment on above: Performed By: #### C BC #### [facility] [address] [place] [address], Hemoglobin (Bld) [Mass/Vol] 12.1 g/dL Normal 12.0-15.0 [facility] Comment on above: Performed By: #### C BC #### [facility] [address], [place], MCH (RBC) [Entitic mass] 26.2 pg Normal 26.0-34.0 [facility] Comment on above: Performed By: #### C BC #### [facility] [address], [place], MCHC (RBC) [Mass/Vol] 32.0 g/dL Normal 32.0-35.9 [facility] Comment on above: Performed By: #### C BC #### [facility] [address] [place] [address], MCV (RBC) [Entitic vol] 82 fL Normal 80-100 [facility] Comment on above: Performed By: #### C BC #### [facility] [address], [place], Platelet mean volume (Bld) [Entitic vol] 7.6 fL Normal 7.5-11.2 [facility] Comment on above: Performed By: #### C BC #### [facility] [address], [place], Platelets (Bld) [#/Vol] 294 10*3/uL Normal 150-400 [facility] Comment on above: Performed By: #### C BC #### [facility] [address], [place], RBC (Bld) [#/Vol] 4.62 10*6/uL Normal 4.00-5.20 [facility] Comment on above: Performed By: #### C BC #### [facility] [address], [place], WBC (Bld) [#/Vol] 8.0 10*3/uL Normal 4.5-11.5 [facility] Comment on above: Performed By: #### C #### [facility] [address] [place], [address] Care Plan Noteon 07-05-2022 [employer] Authentication Interface Message Text Problem: Routine Care: Goal: Patient care will be managed and maintained throughout hospital stay per unit specific routine care procedure Outcome: Progressing Problem: Altered Elimination: Goal: Establishment of normal bowel function will be achieved and maintained Outcome: Progressing Problem: Fluid and Electrolyte Imbalance: Goal: Adequate fluid and electrolyte balance will be achieved and maintained Outcome: Progressing Problem: VTE Prophylaxis: Goal: Will be free of DVT Outcome: Progressing Problem: Acute Pain: Goal: Ability to identify pain intensity on a pain scale and rate it consistently will be achieved and maintained Outcome: Progressing Goal: Understanding of proper administration and use of medicines will be achieved Outcome: Progressing Problem: Risk for Infection: Goal: Risk for infection will be reduced Outcome: Progressing Problem: Safety: Goal: Patient will remain free of falls during hospital stay Outcome: Progressing Goal: Free from injury during hospitalization Outcome: Progressing Problem: Discharge Planning: Goal: Discharge needs of the adult patient will be met Outcome: Progressing Normal [facility] [employer] Authentication Interface Message Text Problem: Routine Care: Goal: Patient care will be managed and maintained throughout hospital stay per unit specific routine care procedure Outcome: Progressing Problem: Altered Elimination: Goal: Establishment of normal bowel function will be achieved and maintained Outcome: Progressing Problem: Fluid and Electrolyte Imbalance: Goal: Adequate fluid and electrolyte balance will be achieved and maintained Outcome: Progressing Problem: VTE Prophylaxis: Goal: Will be free of DVT Outcome: Progressing Problem: Acute Pain: Goal: Ability to identify pain intensity on a pain scale and rate it consistently will be achieved and maintained Outcome: Progressing Goal: Understanding of proper administration and use of medicines will be achieved Outcome: Progressing Problem: Risk for Infection: Goal: Risk for infection will be reduced Outcome: Progressing Problem: Safety: Goal: Patient will remain free of falls during hospital stay Outcome: Progressing Goal: Free from injury during hospitalization Outcome: Progressing Problem: Discharge Planning: Goal: Discharge needs of the adult patient will be met Outcome: Progressing Normal [facility] GLUCOSE, FINGERSTICK-IN OFFI CEon 07-05-2022 Glucose [Mass/Vol] 175 mg/dL High 80 - 116 mg/dL [facility] Interpretation and review of laboratory results Abnormal [facility] Glucose [Mass/Vol] 213 mg/dL High 80-116 The [facility] Comment on above: Result Comment: Kylie monk RN, APN, MD Performed By: #### [id number] #### NURSING GLUCOSE PROGRAM [address] [place] [address], [id number] Glucose [Mass/Vol] 213 mg/dL High 80 - 116 mg/dL [facility] Comment on above: Notified DAVID BRIZUELA MD Interpretation and review of laboratory results Abnormal [facility] Glucose [Mass/Vol] 203 mg/dL High 80-116 The [facility] Comment on above: Result Comment: Kylie monk RN, APN, MD Performed By: #### T S #### [facility] [address] [place] [address], [phone] Glucose [Mass/Vol] 183 mg/dL High 80-116 [facility] Comment on above: Performed By: #### T S #### [facility] [address] [place] [address], [phone] Glucose [Mass/Vol] 203 mg/dL High 80 - 116 mg/dL [facility] Comment on above: Notified DAVID BRIZUELA MD Interpretation and review of laboratory results Abnormal [facility] Glucose [Mass/Vol] 160 mg/dL High 80-116 [facility] Comment on above: Performed By: #### T S #### [facility] [address] [place] [address], [phone] Glucose [Mass/Vol] 160 mg/dL High 80 - 116 mg/dL [facility] Interpretation and review of laboratory results Abnormal [facility] Glucose [Mass/Vol] 183 mg/dL High 80 - 116 mg/dL [facility] Interpretation and review of laboratory results [facility]normal [facility] MAGNESIUMon 07-05-2022 Magnesium [Mass/Vol] 1.9 mg/dL Normal 1.6-2.8 [facility] Comment on above: Performed By: #### C H8, PHOS, MG #### [facility] [address] [place] [address], Magnesium [Mass/Vol] 1.9 mg/dL 1.6 - 2.8 mg/dL [facility] No Panel Informationon 07-05 Interpretation and review of laboratory results Normal [facility] PHOSPHORUSon 07-05-2022 Phosphate [Mass/Vol] 3.2 mg/dL Normal 2.3-4.2 [facility] Comment on above: Performed By: #### C H8, PHOS, MG #### [facility] [address] [place], [phone] Phosphate [Mass/Vol] 3.2 mg/dL 2.3 - 4.2 mg/dL [facility] Progress Noteson 07-05-2022 [employer]eder Authentication Interface Message Text [facility] DIVISION OF ACUTE CARE SURGERY ------- GENERAL INFORMATION ------ EMERGENCY GENERAL SURGERY NOTE Patient Name: Johanna Macdonald Admission Date: 07/04/2022 Patient seen and examined on 07/05/2022 ----- INTERVAL HISTORY/EVENTS --- Background Narrative: 67F PMH Morales's esophagus, GI bleeding, HTN, DM, active >50 pack year smoking, bronchiectasis (no home O2), CT s/p stent x1 (2016, on ASA now), lap sarkis, hysterectomy, hernia repair x2-3, SBO x1 (cannot remember NG vs surgery) who is transferred 07/04 with SBO symptoms beginning 07/03. At OSH, WBC 15.6. Lipase, Hg, LFTs wnl. NG was placed prior to transport. CT A/P concerning for SBO, TP in anterior abdomen, possibly in hernia sac and possible multiple TP. At this time she is non-peritonitic and AFVSS. Will continue non-operative management and optimize patient as necessary for OR. Hospital Course/Procedures: 07/04/2022: Admitted for small bowel obstruction Events in last 24 hours: No nausea/vomiting since initiation of gastric decompression. Will start Gastrogaffin challenge today. No new pain. Denies f/c. PHYSICAL EXAM 24 Hour Input/Output In: 1478.3 (20 mL/kg) [I.V.:1428.3 (0.8 mL/kg/hr)] Out: 725 (9.8 mL/kg) [Urine:375 (0.2 mL/kg/hr); Drainage:350] Net: 753.3 Weight: 73.9 kg Physical Exam: BP 121/60 (BP Location: right arm) Pulse 74 Temp 98.8 ???F (37.1 ???C) (Oral) Resp 18 Ht 4' 11 (1.499 m) Wt 163 lb (73.9 kg) SpO2 96% PF 120 L/min Comment: poor effort pain BMI 32.92 kg/m??? General: No acute distress, awake HEENT: NGT with gastric output Cardiac: Non-tachycardic Pulmonary: Non-labored breathing. Symmetric chest rise. Abdomen: Soft, minimal tenderness, non-distended. No peritonitis Extremities: Moving all extremities spontaneously Skin: Warm, moist Neuro: Alert and oriented x3 LABORATORY RESULTS (LAST 24 HOURS) 8.0 12.1 / 294 / 37.8 CBC: 07/05/2022: 1:12 AM 142 107 14 / 142 3.5 23 0.52 BMP: 07/05/2022: 1:12 AM IMAGING RESULTS - Last 24 hours (PERSONALLY REVIEWED) No new imaging -------- DIAGNOSIS AND PLAN Diagnoses: Small Bowel Obstruction Ventral Hernia (Present on arrival) - multiple Assessment: Johanna Macdonald is a 67F with PMH of HTN, T2DM, CAD (stent x1 2016, ASA81), hysterectomy, hernia repair x2-3, previous SBO, currently admitted for small bowel obstruction in the setting of a ventral hernia. Plan Neuro Analgesia: Tylenol, Dilaudid 0.2/0.5 mg q3h PRN mod/severe Resp Encourage IS Respiratory county assessor protocol Cardio Monitor Vitals GI Diet: NPO #Small Bowel Obstruction - Gastrografin Challenge Renal BMP, Mg, Phos q24h Replace electrolytes PRN LR @ 100 cc/hr Endo #Hx of T2DM - Sliding Scale Insulin Prednisone 40 mg daily taken for COPD frequent exacerbations. Replace with Solu-Medrol 40 mg IV daily while NPO Heme/ID CBC q24h No indication for abx MSK Progressive mobility Ppx SCDs, Lovenox Dipso: RNF Plan was discussed with attending, Dr. Aman Berman MD Surgery Acute care surgery [phone] Acute Care Surgery Attending Note: I saw and evaluated the patient. I personally obtained the keller and critical portions of the history and physical exam. I reviewed the resident's documentation and discussed the patient with the resident. I agree with the resident's medical decision making as documented in the resident's note. I have reviewed all imaging obtained in the last 24 hours. Additional findings, impression, and plan: Minimal output from NG, denies flatus, no worsening of pain. Abdomen soft, nondistended, mildly tender. Gastrograffin challenge performed, contrast within the colon within 4 hours of administration. Will remove NG today, trial clears. Darlin Newton MD Normal [facility] XR Abdomen APon 07-05-2022 EXAMINATION: XR SMAL L BOWEL WATER SOLUBLE CHALLENGE 07/05/2022 01:19 PM CLINICAL HISTORY: Reason for Exam: Concern for obstruction. Now s/p NGT decompression. ASSOCIATED DIAGNOSIS: ORDERING PROVIDER: HAL [employer] NOTE: 0910 0-min COMPARISON: None PROCEDURE: Preliminary radiograph of the abdomen was obtained. Following injection of 50 cc Omnipaque 300 contrast via an indwelling nasogastric tube, radiographs of the abdomen were obtained at 0 minutes and 4 hours. FINDINGS: Preliminary radiograph of the abdomen: Nasogastric tube terminating overlying the distal gastric body region. Atherosclerotic arterial calcifications. Nonobstructive intestinal gas pattern. Small bowel water soluble contrast challenge: Nondistended loops of small bowel with contrast reaching the colon at 4 hours. IMPRESSION: 1. No evidence of a small bowel obstruction. 2. Satisfactory position of the nasogastric tube. MACRO: None RADIOLOGY Wes Lorenzana, DO - 07/05/2022 EXAMINATION: XR SMALL BOWEL WATER SOLUBLE CHALLENGE 07/05/2022 01:19 PM CLINICAL HISTORY: Reason for Exam: Concern for obstruction. Now s/p NGT decompression. ASSOCIATED DIAGNOSIS: ORDERING PROVIDER: HAL [employer] NOTE: 0910 0-min COMPARISON: None PROCEDURE: Preliminary radiograph of the abdomen was obtained. Following injection of 50 cc Omnipaque 300 contrast via an indwelling nasogastric tube, radiographs of the abdomen were obtained at 0 minutes and 4 hours. FINDINGS: Preliminary radiograph of the abdomen: Nasogastric tube terminating overlying the distal gastric body region. Atherosclerotic arterial calcifications. Nonobstructive intestinal gas pattern. Small bowel water soluble contrast challenge: Nondistended loops of small bowel with contrast reaching the colon at 4 hours. IMPRESSION: 1. No evidence of a small bowel obstruction. 2. Satisfactory position of the nasogastric tube. MACRO: None [facility] Radiology Study observation (narrative) [facility] XR Abdomen APOrdered By: Chris Lorenzana on 07-05-2022 [facility] Work Phone: XR SMALL BOWEL WATER SOLUBLE CHALLENGEon 07-05-2022 XR SMALL BOWEL WATER SOLUBLE CHALLENGE EXAMINATION: XR SMALL BOWEL WATER SOLUBLE CHALLENGE 07/05/2022 01:19 PM CLINICAL HISTORY: Reason for Exam: Concern for obstruction. Now s/p NGT decompression. ASSOCIATED DIAGNOSIS: ORDERING PROVIDER: [employer] NOTE: 0910 0-min COMPARISON: None PROCEDURE: Preliminary radiograph of the abdomen was obtained. Following injection of 50 cc Omnipaque 300 contrast via an indwelling nasogastric tube, radiographs of the abdomen were obtained at 0 minutes and 4 hours. FINDINGS: Preliminary radiograph of the abdomen: Nasogastric tube terminating overlying the distal gastric body region. Atherosclerotic arterial calcifications. Nonobstructive intestinal gas pattern. Small bowel water soluble contrast challenge: Nondistended loops of small bowel with contrast reaching the colon at 4 hours. IMPRESSION: 1. No evidence of a small bowel obstruction. 2. Satisfactory position of the nasogastric tube. MACRO: None Normal [facility] ABO RH TYPEon 07-04-2022 ABO and Rh group Nom (Bld) Blood group A Rh(D) positive Normal [facility] Comment on above: Performed By: #### T S #### S [facility] [address] [place] [address], [facility] BASIC METABOLIC PANELon 06-16 Anion gap [Moles/Vol] 12 mmol/L Normal 10-20 [facility] Comment on above: Performed By: #### C H8 #### [facility] [address] [place] [address], Calcium [Mass/Vol] 8.8 mg/dL Normal 8.4-10.4 [facility] Comment on above: Performed By: #### C H8 #### [facility] [address] [place] [address], Chloride [Moles/Vol] 105 mmol/L Normal 97-111 [facility] Comment on above: Performed By: #### C H8 #### [facility] [address] [place] [address], CO2 [Moles/Vol] 25 mmol/L Normal 21-30 [facility] Comment on above: Performed By: #### C H8 #### [facility] [address] [place] [address], Creatinine [Mass/Vol] 0.52 mg/dL Normal 0.50-1.10 [facility] Comment on above: Performed By: #### C H8 #### [facility] [address] [place] [address], ESTIMATED GFR (CKD-EPI) 102 mL/min/1.73sqm Normal >=60 [facility] Comment on above: Result Comment: 2020 CKD EPI Equation using Creatinine without Race Comment: Estimated glomerular filtration rate (eGFR) is calculated without a race coefficient. Values should be interpreted in the context of the patient's full clinical presentation. Reference: 1. Pedrito C, Wilfrid Moreno, Lupis ARGUETA, et al.. A Unifying Approach for GFR Estimation: Recommendations of the NKF-ASN Task Force on Reassessing the Inclusion of Race in Diagnosing Kidney Disease. [place] Journal of Kidney Diseases 2021;79(2):268-88.e1. 2. N Engl J Med 2020 Vol. 385 Issue 19 Pages 3982-3245 Performed By: #### C H8 #### [facility] [address] [place] [address], Glucose [Mass/Vol] 244 mg/dL High 80-116 [facility] Comment on above: Performed By: #### C H8 #### S [facility] [address] [place] [address], Potassium [Moles/Vol] 4.1 mmol/L Normal 3.3-5.3 [facility] Comment on above: Performed By: #### C H8 #### S [facility] [address] [place] [address], Sodium [Moles/Vol] 138 mmol/L Normal 135-148 [facility] Comment on above: Performed By: #### C H8 #### [facility] [address] [place] [address], Urea nitrogen [Mass/Vol] 12 mg/dL Normal 8-22 [facility] Comment on above: Performed By: #### C H8 #### S [facility] [address] [place] [address], Anion gap [Moles/Vol] 14 mmol/L Normal 10-20 [facility] Comment on above: Performed By: #### T S #### S PATHOLOGY LABORATORY [address] [place] [address], Calcium [Mass/Vol] 8.9 mg/dL Normal 8.4-10.4 [facility] Comment on above: Performed By: #### T S #### S PATHOLOGY LABORATORY [address] [place] [address], Chloride [Moles/Vol] 102 mmol/L Normal 97-111 [facility] Comment on above: Performed By: #### T S #### S PATHOLOGY LABORATORY [address] [place] [address], CO2 [Moles/Vol] 25 mmol/L Normal 21-30 [facility] Comment on above: Performed By: #### T S #### S PATHOLOGY LABORATORY [address] [place] [address], Creatinine [Mass/Vol] 0.60 mg/dL Normal 0.50-1.10 [facility] Comment on above: Performed By: #### T S #### S PATHOLOGY LABORATORY [address] [place] [address], ESTIMATED GFR (CKD-EPI) 98 mL/min/1.73sqm Normal >=60 [facility] Comment on above: Result Comment: 2020 CKD EPI Equation using Creatinine without Race Comment: Estimated glomerular filtration rate (eGFR) is calculated without a race coefficient. Values should be interpreted in the context of the patient's full clinical presentation. Reference: 1. Pedrito C, Wilfrid M, Lupis ARGUETA, et al.. A Unifying Approach for GFR Estimation: Recommendations of the NKF-ASN Task Force on Reassessing the Inclusion of Race in Diagnosing Kidney Disease. [place] Journal of Kidney Diseases 2021;79(2):268-88.e1. 2. N Engl J Med 1 Vol. 385 Issue 19 Pages 9651-6741 Performed By: #### T S #### S PATH[facility] [address] [place] [address], Glucose [Mass/Vol] 203 mg/dL High 80-116 [facility] Comment on above: Performed By: #### T S #### S PATH[facility] LAB[facility]ATORY [address] [place] [address], Potassium [Moles/Vol] 6.5 mmol/L Critically high 3.3-5.3 [facility] Comment on above: Result Comment: Hemo lysis present Performed By: #### T S #### [facility] [address] [place] [address], Sodium [Moles/Vol] 134 mmol/L Low 135-148 [facility] Comment on above: Performed By: #### T S #### [facility] [address] [place] [address], Urea nitrogen [Mass/Vol] 11 mg/dL Normal 8-22 [facility] Comment on above: Performed By: #### T S #### [facility] [address] [place], [place], Basic metabolic 2000 panelOr dered By: Chandan Longoria on 07-04-2022 Anion gap [Moles/Vol] 12 mmol/L 10 - 20 [facility] Calcium [Mass/Vol] 8.8 mg/dL 8.4 - 10.4 mg/dL [facility] Chloride [Moles/Vol] 105 mmol/L 97 - 111 mmol/L [facility] CO2 [Moles/Vol] 25 mmol/L 21 - 30 mmol/L [facility] Creatinine [Mass/Vol] 0.52 mg/dL 0.50 - 1.10 mg/dL [facility] GFR/1.73 sq M.predicted MDRD (S/P/Bld) [Vol rate/Area] 102 mL/min/{1.73_m2} - PIN[facility] Comment on above: 2020 CKD EPI Equatio n using Creatinine without Race Comment: Estimated glomerular filtration rate (eGFR) is calculated without a race coefficient. Values should be interpreted in the context of the patient's full clinical presentation. Reference: 1. Pedrito C, Baaure M, Lupis ARGUETA, et al.. A Unifying Approach for GFR Estimation: Recommendations of the NKF-ASN Task Force on Reassessing the Inclusion of Race in Diagnosing Kidney Disease. [place] Journal of Kidney Diseases 202;79(2):268-88.e1. 2. N Engl J Med 2020 Vol. 385 Issue 19 Pages 6688-0360 Glucose [Mass/Vol] 244 mg/dL High 80 - 116 mg/dL [facility] Interpretation and review of laboratory results Abnormal [facility] Potassium [Moles/Vol] 4.1 mmol/L 3.3 - 5.3 mmol/L [facility] Sodium [Moles/Vol] 138 mmol/L 135 - 148 mmol/L [facility] Urea nitrogen [Mass/Vol] 12 mg/dL 8 - 22 mg/dL [facility] Basic metabolic 1999 panelOr dered By: Carli Garnett on 07-04-2022 Anion gap [Moles/Vol] 14 mmol/L 10 - 20 [facility] Calcium [Mass/Vol] 8.9 mg/dL 8.4 - 10.4 mg/dL [facility] Chloride [Moles/Vol] 102 mmol/L 97 - 111 mmol/L [facility] CO2 [Moles/Vol] 25 mmol/L 21 - 30 mmol/L [facility] Creatinine [Mass/Vol] 0.60 mg/dL 0.50 - 1.10 mg/dL [facility] GFR/1.73 sq M.predicted MDRD (S/P/Bld) [Vol rate/Area] 98 mL/min/{1.73_m2} - [facility] Comment on above: 2020 CKD EPI Equatio n using Creatinine without Race Comment: Estimated glomerular filtration rate (eGFR) is calculated without a race coefficient. Values should be interpreted in the context of the patient's full clinical presentation. Reference: 1. Pedrito C, Wilfrid M, Lupis DC, et al.. A Unifying Approach for GFR Estimation: Recommendations of the NKF-ASN Task Force on Reassessing the Inclusion of Race in Diagnosing Kidney Disease. [place] Journal of Kidney Diseases 202;79(2):268-88.e1. 2. N Engl J Med 2020 Vol. 385 Issue 19 Pages 8197-1331 Glucose [Mass/Vol] 203 mg/dL High 80 - 116 mg/dL [facility] Interpretation and review of laboratory results Abnormal [facility] Potassium [Moles/Vol] 6.5 mmol/L Critically high 3.3 - 5.3 mmol/L [facility] Comment on above: Hemolysis present Sodium [Moles/Vol] 134 mmol/L Low 135 - 148 mmol/L [facility] Urea nitrogen [Mass/Vol] 11 mg/dL 8 - 22 mg/dL [facility] CBC WITH DIFFERENTIALon 06-16 Basophils (Bld) [#/Vol] 0.12 10*3/uL 0.00 - 0.20 K/uL [facility] Basophils/100 WBC (Bld) 0.9 % NINF - 1.9 % [facility] Eosinophils (Bld) [#/Vol] 0.11 10*3/uL 0.00 - 0.70 K/uL [facility] Eosinophils/100 WBC (Bld) 0.8 % 0.1 - 4.0 % [facility] Erythrocyte distribution width (RBC) [Ratio] 22.4 % High 11.5 - 14.5 % [facility] Hematocrit (Bld) [Volume fraction] 40.0 % 36.0 - 46.0 % [facility] Hemoglobin (Bld) [Mass/Vol] 13.5 g/dL 12.0 - 15.0 g/dL [facility] Interpretation and review of laboratory results Abnormal [facility] Lymphocytes (Bld) [#/Vol] 2.28 10*3/uL 1.00 - 4.80 K/uL [facility] Lymphocytes/100 WBC (Bld) 15.5 % Low 24.0 - 44.0 % [facility] MCH (RBC) [Entitic mass] 27.8 pg 26.0 - 34.0 pg [facility] MCHC (RBC) [Mass/Vol] 33.7 g/dL 32.0 - 35.9 g/dL [facility] MCV (RBC) [Entitic vol] 83 fL 80 - 100 fL [facility] Monocyte distribution width Auto (Bld) [Entitic vol] 22 High NINF - 20 [facility] Monocytes (Bld) [#/Vol] 1.05 10*3/uL High 0.20 - 1.00 K/uL [facility] Monocytes/100 WBC (Bld) 7.1 % 2.0 - 11.0 % [facility] Neutrophils (Bld) [#/Vol] 11.10 10*3/uL High 1.50 - 8.00 K/uL [facility] Neutrophils/100 WBC (Bld) 75.7 % 31.0 - 76.0 % [facility] Nucleated RBC (Bld) [#/Vol] 0.01 10*3/uL [facility] Platelet mean volume (Bld) [Entitic vol] 8.1 fL 7.5 - 11.2 fL [facility] Platelets (Bld) [#/Vol] 322 10*3/uL 150 - 400 K/uL [facility] RBC (Bld) [#/Vol] 4.85 10*6/uL [facility] WBC (Bld) [#/Vol] 14.7 10*3/uL High 4.5 - 11.5 K/uL [facility] Basophils (Bld) [#/Vol] 0.12 10*3/uL Normal 0.00-0.20 [facility] Comment on above: Performed By: ###BRANDY SHOOK ####[facility] PATHOLOGY [id number] [place], [place], Basophils/100 WBC (Bld) 0.9 % Normal <=1.9 [facility] Comment on above: Performed By: ###BRANDY SHOOK ####[facility] PATHOLOGY [id number] [place] [address], Eosinophils (Bld) [#/Vol] 0.11 10*3/uL Normal 0.00-0.70 [facility] Comment on above: Performed By: ###BRANDY SHOOK ####[facility] PATHOLOGY [id number] [place] [address], Eosinophils/100 WBC (Bld) 0.8 % Normal 0.1-4.0 [facility] Comment on above: Performed By: ###BRANDY SHOOK ####[facility] PATHOLOGY [id number] [place] [address], Erythrocyte distribution width (RBC) [Ratio] 22.4 % High 11.5-14.5 [facility] Comment on above: Performed By: ###BRANDY SHOOK ####[facility] [id number] [place] [address], Hematocrit (Bld) [Volume fraction] 40.0 % Normal 36.0-46.0 [facility] Comment on above: Performed By: ###BRANDY SHOOK ####[facility] PATHOLOGY [id number] [place] [address], Hemoglobin (Bld) [Mass/Vol] 13.5 g/dL Normal 12.0-15.0 [facility] Comment on above: Performed By: ###BRANDY SHOOK ####[facility] [id number] [place] [address], Lymphocytes (Bld) [#/Vol] 2.28 10*3/uL Normal 1.00-4.80 [facility] Comment on above: Performed By: #### Trish LARA MDIFF ####S PATHOLOGY [id number] [place], [place], Lymphocytes/100 WBC (Bld) 15.5 % Low 24.0-44.0 [facility] Comment on above: Performed By: #### BRANDY CARDONA ####[facility] PATHOLOGY [id number] [place], [place], MCH (RBC) [Entitic mass] 27.8 pg Normal 26.0-34.0 [facility] Comment on above: Performed By: #### BRANDY CARDONA ####[facility] PATHOLOGY [id number] [place], [place], MCHC (RBC) [Mass/Vol] 33.7 g/dL Normal 32.0-35.9 [facility] Comment on above: Performed By: #### BRANDY CARDONA ####[facility] PATHOLOGY [id number] [place], [place], MCV (RBC) [Entitic vol] 83 fL Normal 80-100 [facility] Comment on above: Performed By: #### BRANDY CARDONA ####[facility] PATHOLOGY [id number] [place], [place], MONOCYTE DISTRIBUTION WIDTH 22 High <=20 [facility] Comment on above: Performed By: #### BRANDY CARDONA ####[facility] PATHOLOGY [id number] [place], [place], Monocytes (Bld) [#/Vol] 1.05 10*3/uL High 0.20-1.00 [facility] Comment on above: Performed By: #### BRANDY CARDONA ####[facility] PATHOLOGY [id number] [place], [place], Monocytes/100 WBC (Bld) 7.1 % Normal 2.0-11.0 [facility] Comment on above: Performed By: #### BRANDY CARDONA ####[facility] PATHOLOGY [id number] [place], [place], Neutrophils (Bld) [#/Vol] 11.10 10*3/uL High 1.50-8.00 [facility] Comment on above: Performed By: ###BRANDY SHOOK ####[facility] [id number] [place], [place], Neutrophils/100 WBC (Bld) 75.7 % Normal 31.0-76.0 [facility] Comment on above: Performed By: ###BRANDY SHOOK ####[facility] [id number] [place], [place], Nucleated RBC (Bld) [#/Vol] 0.01 10*3/uL Normal [facility] Comment on above: Performed By: ###BRANDY SHOOK ####[facility] [id number] [place], [place], Platelet mean volume (Bld) [Entitic vol] 8.1 fL Normal 7.5-11.2 [facility] Comment on above: Performed By: ###BRANDY SHOOK ####[facility] [id number] [place], [place], Platelets (Bld) [#/Vol] 322 10*3/uL Normal 150-400 [facility] Comment on above: Performed By: ###BRANDY SHOOK ####[facility] [id number] [place], [place], RBC (Bld) [#/Vol] 4.85 10*6/uL Normal 4.00-5.20 [facility] Comment on above: Performed By: ###BRANDY SHOOK ####S PATHOLOGY [id number] [place], [place], WBC (Bld) [#/Vol] 14.7 10*3/uL High 4.5-11.5 [facility] Comment on above: Performed By: ###BRANDY SHOOK ####S PATHOLOGY [id number] [place], [place], Care Plan Noteon 07-04-2022 Weeder Authentication Interface Message Text Problem: Routine Care: Goal: Patient care will be managed and maintained throughout hospital stay per unit specific routine care procedure Outcome: Progressing Problem: Altered Elimination: Goal: Establishment of normal bowel function will be achieved and maintained Outcome: Progressing Problem: Fluid and Electrolyte Imbalance: Goal: Adequate fluid and electrolyte balance will be achieved and maintained Outcome: Progressing Problem: VTE Prophylaxis: Goal: Will be free of DVT Outcome: Progressing Problem: Acute Pain: Goal: Ability to identify pain intensity on a pain scale and rate it consistently will be achieved and maintained Outcome: Progressing Goal: Understanding of proper administration and use of medicines will be achieved Outcome: Progressing Problem: Risk for Infection: Goal: Risk for infection will be reduced Outcome: Progressing Problem: Safety: Goal: Patient will remain free of falls during hospital stay Outcome: Progressing Goal: Free from injury during hospitalization Outcome: Progressing Problem: Discharge Planning: Goal: Discharge needs of the adult patient will be met Outcome: Progressing Normal [facility] 07-04-2022 Weeder Authentication Interface Message Text Attestation signed by Jacqueline Martinez MD at 07/04/2022 9:01 PM Teaching Physician Note: I saw and evaluated the patient. I personally obtained the keller and critical portions of the history and physical exam. I reviewed the resident's documentation and discussed the patient with the resident. I agree with the resident's medical decision making as documented in the resident's note. This is a 67 year old female patient who presents as a transfer after a small bowel obstruction. She has had several surgeries including a hernia repairs. Has also had SBO in the past and cannot remember if this was managed operatively or non operatively She has not had any abdominal surg in the last 10 years Abdomen is distended. She is not peritonitic and has non specific tenderness mainly in the upper abdomen without any rebound NGT has just gone in, green bilious output On review of CT scan she has dilated and decompressed bowel loops Zafar for non operative management with NGT however I have spoken with the patient about the possibility that this may not resolve non operatively and if she requires surgery, it will be extensive and may involve mesh explantation. She expresses understanding Jacqueline Martinez MD [facility] DIVISION OF ACUTE CARE SURGERY EMERGENCY GENERAL SURGERY CONSULTATION, HISTORY AND PHYSICAL Reason for consultation: Small bowel obstruction Referring physician: ISAEL Felix HPI: 67F PMH Morales's esophagus, GI bleeding, HTN, DM, active >50 pack year smoking, bronchiectasis (no home O2), CT s/p stent x1 (2015, on ASA now), lap sarkis, hysterectomy, hernia repair x2-3, SBO x1 (cannot remember NG vs surgery) who is transferred 07/04 with SBO. Abdominal pain began 07/03 AM, developed nausea without emesis, last BM/flatus 07/03 as well. Denies fevers, possible chills. She endorses recent admission for COPD exacerbation and was discharged on prednisone taper (10mg for 4 more days) and antibiotics (completed). Denies liver or kidney history. Denies known stroke or CT other than 2017. Requires q4 hour duoneb breathing treatment, no home oxygen. 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 Colonoscopy completed ~4 weeks ago, but cannot remember any details. Duration 1 day Location abdomen Context worsening PQRST non-radiating, worse in upper abdomen Assoc signs AND symptoms nausea, no emesis Modifying factors improves with bowel rest PMH: HTN, DM, active >50 pack year smoking, bronchiectasis (no home O2), CT s/p stent x1 (2015, on ASA now) PSH: lap sarkis, hysterectomy, hernia repair x2-3, SBO x1 MEDS: Prior to Admission Medications Prescriptions Last Dose Informant Patient Reported? Taking? Cholecalciferol 1.25 MG (92757 UT) CAPS Yes Yes Sig: Take by mouth. Potassium Chloride Shoaib ER (POTASSIUM CHLORIDE SHOAIB CR ORAL) Yes Yes Sig: Take 10 mEq by mouth. Once a day every other day amLODIPine (NORVASC) 10 MG tablet Yes Yes Sig: Take 10 mg by mouth daily. aspirin EC 81 MG tablet Yes Yes Sig: Take 81 mg by mouth daily. atorvastatin (LIPITOR) 80 mg tablet Yes Yes Sig: Take by mouth daily. cefUROXime (CEFTIN) 500 MG tablet Yes Yes Sig: Take 500 mg by mouth 2 times daily. furosemide (LASIX) 20 MG tablet Yes Yes Sig: Take 20 mg by mouth daily. ipratropium-albuterol (DUO-NEB) 0.5-2.5 (3) MG/3ML nebulizer solution Yes Yes Sig: Use 3 mL via nebulizer 4 times daily. isosorbide mononitrate (IMDUR) 30 MG CR tablet Yes Yes Sig: Take 30 mg by mouth daily. metformin (GLUCOPHAGE) 500 MG tablet Yes Yes Sig: Take 500 mg by mouth 3 times daily (with meals). nitroglycerin (NITROSTAT) 0.4 MG sublingual tablet Yes Yes Si.4 mg by Sublingual route every 5 minutes as needed for Chest pain. Maximum of 3 tablets in 15 minutes. predniSONE (DELTASONE) 20 MG tablet Yes Yes Sig: Take 40 mg by mouth daily. Facility-Administered Medications: None ALL: Allergies Allergen Reactions Amoxicillin Atenolol Anaphylactic Shock Biaxin [Clarithromycin] Ciprofloxacin Doxycycline Hydrocodone-Acetaminoph en [Acetaminophen-Hydrocod one] Keflex [Cephalexin] Pseudoephedrine Sulfa Antibiotics FH: No family history on file. SH: >50 pack year smoking, no alcohol, no other drug use Review Of Systems: 10 point review of systems negative except for pertinent positives mentioned in HPI PHYSICAL EXAM: VITALS: Vitals: 07/04/22 0400 BP: 129/51 Pulse: 74 Resp: 18 Temp: 98 ???F (36.7 ???C) SpO2: 94% General: No acute distress, alert and oriented Neuro: Moves extremities without gross deficit Cardiac: RRR Respiratory: Non-labored breathing on room air Abdomen: soft, no overlying skin changes, tender to palpation in upper abdomen, non-peritonitic Extremities: no peripheral edema LABS: CBC/PT/INR WBC RBC Hgb Hct MCV (more content not included)... Normal [facility] Covid-19 PCR (CVDTB)on 06-16 SARS-CoV-2 (COVID-19) RNA RAMANDEEP+probe Ql (Unsp spec) Not detected Normal NOT DETECTED [facility] Comment on above: Result Comment: When diagnostic testing is negative, the possibility of a false negative should be considered inthe context of a patient's recent exposures and the presence of clinical signs and symptomsconsistent with SARS-CoV-2.This test is not yet approved or cleared by the [place] FDA. When there are no FDA-approved or cleared tests available, and other criteria are met, FDA can make tests available under an emergency access mechanism called an Emergency Use Authorization (EUA). The EUA for this test is supported by the [place] of Health and Human Service's declaration that circumstances exist to justify the emergency use of in vitro diagnostics for the detection and/or diagnosis of the virus that causes COVID-19. This EUA will remain in effect for the duration of the COVID-19 declaration justifying emergency of IVDs, unless it is terminated or revoked by the FDA (after which the test may no longer be used). Performed By: #### [facility] ####[facility] [id number] [place], [place] [address]PfDonald Joo Hansen ED Noteson 07-04-2022 Weeder Authentication Interface Message Text /LENO BAKER notified of critical POTASSIUM ( HEMOLYZED) value of 6.5 . PAGED results given /PHONED to Dr./LIP SAMUEL Matthew Normal [facility] ED Provider Noteson 07-04-20 Weeder Authentication Interface Message Text EMERGENCY DEPARTMENT - VISIT NOTE ------- HISTORY OF PRESENT ILLNESS --- Chief Complaint Patient presents with small bowel obstruction Missileman: not needed - patient preferred language is Cymraes. The history is provided by the Patient. Johanna Macdonald is a 67 year old female presenting to the ED for abdominal pain X 2 days with decreased bowel movements, found to have SBO at OSH. She notes she was having non-bloody diarrhea for 2-3 days with transition to somewhat formed, last bowel movement was 2-3 days ago. She endorses epigastric pain, aggravated with movement, only alleviated mildly with OTC analgesia, sharp/stabbing, radiates to her back, moderate to severe, constant. Endorses nausea without emesis. Decreased PO intake. Denies any fevers/chills, chest pain/palpitations, shortness of breath/dyspnea on exertion, or symptoms. Notes hx of cholecystectomy, denies prior hx of bowel obstruction. Notes hx of HTN, Bronchiectasis, CT (2016) s/p stent x 1, DM. Denies any recent PO intake. REVIEW OF SYSTEMS Review of Systems Constitutional: Positive for appetite change. Negative for chills, fatigue and fever. HENT: Negative. Negative for congestion, rhinorrhea, sore throat and voice change. Eyes: Negative. Respiratory: Negative. Negative for cough, chest tightness and shortness of breath. Cardiovascular: Negative. Negative for chest pain and palpitations. Gastrointestinal: Positive for abdominal distention, abdominal pain, diarrhea and nausea. Negative for blood in stool, constipation and vomiting. Genitourinary: Negative. Negative for decreased urine volume, dysuria, flank pain, frequency, hematuria and urgency. Musculoskeletal: Negative. Skin: Negative. Neurological: Negative. Negative for dizziness, weakness, light-headedness and headaches. PAST HISTORY Pertinent Past History: See HPI Pertinent Social History: Denies illicit drug use PHYSICAL EXAM BP 136/51 (BP Location: right arm) Pulse 74 Temp 98.2 ???F (36.8 ???C) (Oral) Resp 18 Ht 4' 11 (1.499 m) Wt 163 lb (73.9 kg) SpO2 96% PF 120 L/min Comment: poor effort pain BMI 32.92 kg/m??? Physical Exam Vitals and nursing note reviewed. Constitutional: General: She is not in acute distress. Appearance: Normal appearance. She is normal weight. She is ill-appearing. She is not diaphoretic. Comments: No appreciable acute distress during assessment, appears mildly ill on arrival HENT: Nose: Nose normal. Mouth/Throat: Mouth: Mucous membranes are dry. Pharynx: Oropharynx is clear. Eyes: General: No scleral icterus. Conjunctiva/sclera: Conjunctivae normal. Pupils: Pupils are equal, round, and reactive to light. Cardiovascular: Rate and Rhythm: Normal rate and regular rhythm. Pulses: Normal pulses. Radial pulses are 2+ on the right side and 2+ on the left side. Dorsalis pedis pulses are 2+ on the right side and 2+ on the left side. Heart sounds: Normal heart sounds. Comments: Equal and symmetrical bilateral distal pulses Pulmonary: Effort: Pulmonary effort is normal. Breath sounds: Normal breath sounds. Comments: Speaking in complete sentences, no appreciable conversational dyspnea, no requirement for supplemental O2 Abdominal: General: Abdomen is protuberant. Bowel sounds are decreased. There is distension. Palpations: Abdomen is soft. There is shifting dullness. Tenderness: There is generalized abdominal tenderness and tenderness in the epigastric area. There is no guarding or rebound. Comments: Moderate diffuse TTP of abdomen with increased focality of epigastric region, pos guarding with notable rebound TTP Musculoskeletal: General: Normal range of motion. Right lower leg: No edema. Left lower leg: No edema. Skin: General: Skin is warm and dry. Neurological: General: No focal deficit present. Mental Status: She is alert. MEDICAL DECISION MAKING and ED COURSE Nursing triage and assessment notes reviewed and incorporated Evaluated by EM attending Petar Walker Course: ED Course as of 07/04/22 0915 Sat Jul 04, 2022 0420 VSS on presentation [BC] 0650 Complete Blood Count W/Diff(!): WBC 14.7(!) RBC 4.85 Hemoglobin 13.5 Hematocrit 40.0 MCV 83 MCH 27.8 MCHC 33.7 Platelet 322 RDW-CV% 22.4(!) MPV 8.1 Neutrophils 75.7 Neutrophil # 11.10(!) Lymphocytes 15.5(!) Lymph Absolute 2.28 Monocytes 7.1 Monocyte Absolute 1.05(!) Eosinophil 0.8 Eosinophil Absolute 0.11 Basophils 0.9 Basophil # 0.12 NRBC ABS 0.01 MDW 22(!) Anisocytosis Moderate Fragmented RBC Few Ovalocytes Few Katerin Cells Few Leukocytosis with elevat (more content not included)... Normal [facility] GLUCOSE, FINGERSTICK-IN OFFI CEon 07-04-2022 Glucose [Mass/Vol] 122 mg/dL High 80-116 [facility] Comment on above: Result Comment: Noti fied DAVID BRIZUELA MD Performed By: #### [id number] #### NURSING GLUCOSE PROGRAM [address] [place] [address], [id number] Glucose [Mass/Vol] 122 mg/dL High 80 - 116 mg/dL [facility] Comment on above: Notified DAVID BRIZUELA MD Interpretation and review of laboratory results [facility] Glucose [Mass/Vol] 258 mg/dL High 80-116 [facility] Comment on above: Performed By: #### T S #### [facility] LABORATORY [address] [place] [address], [id number] Glucose [Mass/Vol] 258 mg/dL High 80 - 116 mg/dL [facility] Interpretation and review of laboratory results Abnormal [facility] - Blood bankon ABO and Rh group Nom (Bld) Blood group A Rh(D) positive [facility] MANUAL DIFF AND MORPHOrdered By: Anay Lopez on 07-04-2022 Anisocytosis Ql (Bld) Moderate [facility] Katerin cells LM Ql (Bld) Few [facility] Cells Counted Total (Bld) [#] [facility] Ovalocytes LM Ql (Bld) Few [facility] Schistocytes LM Ql (Bld) Few [facility] MANUAL DIFF AND MORPHon - ANISOCYTOSIS Moderate Normal [facility] Comment on above: Performed By: #### BRANDY CARDONA ####[facility] [id number] [place], [place], KATERIN CELLS Few Normal [facility] Comment on above: Performed By: #### BRANDY CARDONA ####[facility] [id number] [place], [place], CELLS COUNTED TOTAL # IN BLOOD Normal [facility] Comment on above: Performed By: #### BRANDY CARDONA ####S PATHOLOGY [id number] [place], [place], FRAGMENTED RBC Few Normal [facility] Comment on above: Performed By: #### BRANDY CARDONA ####[facility] [id number] [place], [place], OVALOCYTES Few Normal [facility] Comment on above: Performed By: #### BRANDY CARDONA ####S PATHOLOGY [id number] [place], [place], No Panel InformationOrdered By: Anay Lopez on 07-04-2022 [facility] No Panel Informationon 07-04 Interpretation and review of laboratory results Normal [facility] PARTIAL THROMBOPLASTIN TIMEo n 07-04-2022 aPTT Coag (Bld) [Time] 25 s Normal 25-37 [facility] Comment on above: Performed By: #### T S #### [facility] [address] [place] [address], aPTT Coag (Bld) [Time] 25 s [facility] PROTHROMBIN TIME AND INRon 1 09-03-2021 INR Coag (PPP) [Relative time] 0.97 {INR} Normal 0.90-1.10 [facility] Comment on above: Performed By: #### T S #### [facility] [address] [place], [place], PT Coag (PPP) [Time] 11.0 s Normal 9.7-12.9 [facility] Comment on above: Performed By: #### T S #### S PATHOLOGY LABORATORY [address] [place], [place], INR Coag (PPP) [Relative time] 0.97 {INR} 0.90 - 1.10 [facility] Coag (PPP) [Time] 11.0 [facility]2022 ABO and Rh group Nom (Bld) Blood group A Rh(D) positive [facility] ABO and Rh group Nom (Bld) No Previous Results [facility] Blood group antibody screen Ql Negative [facility] ABO and Rh group Nom (Bld) Blood group A Rh(D) positive Normal [facility] Comment on above: Performed By: #### T S #### S PATHOLOGY LABORATORY [address] [place], [place], ABO and Rh group Nom (Bld) No Previous Results Normal [facility] Comment on above: Performed By: #### T S #### S PATHOLOGY LABORATORY [address] [place], [place], ABSC INT Negative Normal [facility] Comment on above: Performed By: #### T S #### [facility] PATHOLOGY LABORATORY [address] [place], [place], XR CHEST 2 VIEW PA+LATon XR CHEST 2 VIEW PA+LAT EXAMINATION: XR CHEST 2 VIEW PA+LAT 07/04/2022 05:45 AM CLINICAL HISTORY: Reason for Exam: Nausea and vomiting; please optain distal end of NGT, thank you ASSOCIATED DIAGNOSIS: Nausea and vomiting please optain distal end of NGT, thank you ORDERING PROVIDER: [employer] NOTE: COMPARISON: None FINDINGS: Lines, tubes and devices: An enteric tube traverses the esophagus and left hemidiaphragm with distal tip overlying the gastric body. Additional tubing overlies the chest. Cardiomediastinal silhouette: The heart is not enlarged. Atherosclerotic calcifications of the thoracic aorta. Lungs/Pleura: Plate-like bibasilar atelectasis. No focal pulmonary consolidation, effusion or pneumothorax. Musculoskeletal: Unremarkable. IMPRESSION: Enteric tube with distal tip overlying the gastric body. MACRO: None Normal [facility] XR Chest PA and Lateralon EXAMINATION: XR CHES T 2 VIEW PA+LAT 07/04/2022 05:45 AM CLINICAL HISTORY: Reason for Exam: Nausea and vomiting; please optain distal end of NGT, thank you ASSOCIATED DIAGNOSIS: Nausea and vomiting please optain distal end of NGT, thank you ORDERING PROVIDER: [employer] NOTE: COMPARISON: None FINDINGS: Lines, tubes and devices: An enteric tube traverses the esophagus and left hemidiaphragm with distal tip overlying the gastric body. Additional tubing overlies the chest. Cardiomediastinal silhouette: The heart is not enlarged. Atherosclerotic calcifications of the thoracic aorta. Lungs/Pleura: Plate-like bibasilar atelectasis. No focal pulmonary consolidation, effusion or pneumothorax. Musculoskeletal: Unremarkable. IMPRESSION: Enteric tube with distal tip overlying the gastric body. MACRO: None RADIOLOGY [place], Sven Weinstein MD - 07/04/2022 EXAMINATION: XR CHEST 2 VIEW PA+LAT 07/04/2022 05:45 AM CLINICAL HISTORY: Reason for Exam: Nausea and vomiting; please optain distal end of NGT, thank you ASSOCIATED DIAGNOSIS: Nausea and vomiting please optain distal end of NGT, thank you ORDERING PROVIDER: [employer] NOTE: COMPARISON: None FINDINGS: Lines, tubes and devices: An enteric tube traverses the esophagus and left hemidiaphragm with distal tip overlying the gastric body. Additional tubing overlies the chest. Cardiomediastinal silhouette: The heart is not enlarged. Atherosclerotic calcifications of the thoracic aorta. Lungs/Pleura: Plate-like bibasilar atelectasis. No focal pulmonary consolidation, effusion or pneumothorax. Musculoskeletal: Unremarkable. IMPRESSION: Enteric tube with distal tip overlying the gastric body. MACRO: None [facility] Radiology Study observation (narrative) [facility] XR Chest PA and LateralOrder ed By: Sven Wallace on 07-04-2022 [facility] Work Phone: AMYLASEon 07-03-2022 Amylase [Catalytic activity/Vol] 21 U/L Critically low 25-115 [facility] Comment on above: Performed By: #### A MY, LIPA, CMP ####[facility] [address]qycx[address] [place] [address]Dr. Joo Hansen CBC AUTO DIFFon 07-03-2022 BASO # 0.1 103/ul Normal 0.0-0.1 [facility] Comment on above: Performed By: #### C BC ####[facility] Kyvfig[address] [place], [place] [address]Dr. Joo Hansen Basophils/100 WBC (Bld) 0.5 % Normal 0.2-2.0 [facility] Comment on above: Performed By: #### C BC ####[facility] Zwerfyxeex[address] [place], [place] [address]Dr. Maria De Jesusfausto Tyrone EO # 0.1 103/ul Normal 0.0-0.7 [facility] Comment on above: Performed By: #### C BC ####[facility] Vtgvzljztf[address] [place], [place] [address]Dr. Joo Tyrone Eosinophils/100 WBC (Bld) 0.4 % Critically low 0.9-7.0 [facility] Comment on above: Performed By: #### C BC ####[facility] Ujyqtrbjmb[address] [place], [place] [address]Dr. Joo Hansen Erythrocyte distribution width (RBC) [Ratio] 20.0 % Critically high 11.0-15.0 [facility] Comment on above: Performed By: #### C BC ####[facility] Ujupdlogpp[address] [place], [place] [address]Dr. Joo Hansen Hematocrit (Bld) [Volume fraction] 40.1 % Normal 36.0-48.0 [facility] Comment on above: Performed By: #### C BC ####[facility] Qiepngjajr[address] [place], [place] [address]Dr. Joo Hansen Hemoglobin (Bld) [Mass/Vol] 12.8 g/dL Normal 12.0-16.0 [facility] Comment on above: Performed By: #### C BC ####[facility] Lnnsulabpc7[address] [place], [place] [address]Dr. Joo Hansen IG # 0.21 10e3/ul Critically high 0.00-0.03 [facility] Comment on above: Performed By: #### C BC ####[facility] Rqxxwtqefj5[address] [place] [id number]. Maria De Jesusfausto Hansen IG % 1.3 % Critically high 0.0-0.5 [facility] Comment on above: Performed By: #### C BC ####[facility] Saxxkedwvo46[address] [place] [address]Dr. Joo Hansen LYMPH # 1.7 103/ul Normal 1.2-3.8 [facility] Comment on above: Performed By: #### C BC ####[facility] Fukkjykbxr5178 [place] [address]Dr. Joo Hansen Lymphocytes/100 WBC (Bld) 11.0 % Critically low 20.5-60.0 [facility] Comment on above: Performed By: #### C BC ####[facility] Qcneevcnjj4675 [place] [address]Dr. Joo Hansen MANUAL DIFF REQ NO Normal [facility] Comment on above: Performed By: #### C BC ####[facility] Bzehysftsa[address] [place], [place] [address]Dr. Joo yTrone MCH (RBC) [Entitic mass] 25.7 pg Critically low 26.7-34.0 [facility] Comment on above: Performed By: #### C BC ####[facility] Akhmkcyitn[address] [place], [place] [address]Dr. Joo Tyrone MCHC (RBC) [Mass/Vol] 31.9 g/dL Normal 29.9-35.2 [facility] Comment on above: Performed By: #### C BC ####[facility] Kmtqvhbtql4237 [place] [address]Dr. Joo Hansen MCV (RBC) [Entitic vol] 80.5 fL Critically low 81.0-99.0 [facility] Comment on above: Performed By: #### C BC ####[facility] Eujgyzzieu[address] [place], [place] [address]Dr. Joo Hansen MONO # 1.0 103/ul Critically high 0.3-0.8 [facility] Comment on above: Performed By: #### C BC ####[facility] Efubnrpsib9089 [place] [address]Dr. Joo Hansen Monocytes/100 WBC (Bld) 6.2 % Normal 1.7-12.0 [facility] Comment on above: Performed By: #### C BC ####[facility] Vkxkzvwdir5158 [place] [address]Dr. Joo Hansen NEUT # 12.6 103/ul Critically high 1.4-6.5 [facility] Comment on above: Performed By: #### C BC ####[facility] Yzcnyxhqiq5508 [place] [address]Dr. Joo Hansen Neutrophils/100 WBC (Bld) 80.6 % Critically high 43.0-75.0 [facility] Comment on above: Performed By: #### C BC ####[facility] Qwmclbbzfa358[address] [place], [place] [address]Dr. Joo Hansen Platelet mean volume (Bld) [Entitic vol] 8.8 fL Critically low 9.5-13.5 [facility] Comment on above: Performed By: #### C BC ####[facility] Witirjapnm62[address] [place], [place] [address]Dr. Joo Hansen PLT 371 103/ul Normal 150-450 [facility] Comment on above: Performed By: #### C BC ####[facility] Vjfuvftngg[address] [place], [place] [address]Dr. Joo Hansen RBC 4.98 106/ul Normal 4.20-5.40 [facility] Comment on above: Performed By: #### C BC ####[facility] Vvyatoshdf524[address] [place], [place] [address]Dr. Joo Hansen WBC 15.6 103/ul Critically high 4.0-11.0 [facility] Comment on above: Performed By: #### C BC ####[facility] Ikownwpwrj3106[address] [place], [place] [address]Dr. Joo Hansen CT ABD/PELV W CONon 07-03-[address] ABD/PELV W CON Normal [facility] ER URINE PROFILEon 2 Bilirubin Ql (U) Negative Normal NEGATIVE [facility] Comment on above: Performed By: #### E RUR ####[facility] Adenspmmrv[address] [place], [place] [address]Dr. Joo Hansen Clarity (U) CLEAR Normal CLEAR [facility] Comment on above: Performed By: #### E RUR ####[facility] Sactpkgpik[address] [place], [place] [address]Dr. Joo Hansen Color (U) YELLOW Normal YELLOW [facility] Comment on above: Performed By: #### E RUR ####[facility] Zklsdujsku[address] [place], [place] [address]Dr. Joo Hansen ERUAHD A micrscopic examination will be performed if indicated. Normal [facility] Comment on above: Performed By: #### E RUR ####[facility] Gcxwrsguty936[address] [place], [place] [address]Dr. Joo Hansen Glucose Ql (U) >1000 Abnormal NEGATIVE [facility] Comment on above: Performed By: #### E RUR ####[facility] Xugmlbyyvi6874[address] [place], [place] [address]Dr. Joo Hansen Hemoglobin Ql (U) Negative Normal NEGATIVE [facility] Comment on above: Performed By: #### E RUR ####[facility] Ztpjdrbbnr6[address] [place], [place] [address]Dr. Joo Hansen Ketones Ql (U) Negative Normal NEGATIVE [facility] Comment on above: Performed By: #### E RUR ####[facility] Dwwhizgrqd9[address] [place], [place] [address]Dr. Joo Hansen LEUKOCYTES Negative Normal NEGATIVE [facility] Comment on above: Performed By: #### E RUR ####[facility] Sxouqwgbei638[address] [place], [place] [address]Dr. Joo Hansen Nitrite Ql (U) Negative Normal NEGATIVE [facility] Comment on above: Performed By: #### E RUR ####[facility] Sblwkkrtlx8301[address] [place], [place] [address]Dr. Maria De Jesusfausto Hansen pH (U) 5.5 [pH] Normal 5-9 [facility] Comment on above: Performed By: #### E RUR ####[facility] Wfkzjfknqd9471 [place] [address]Dr. Joo Hansen SPEC GRAVITY 1.025 Normal 1.005-<=1.025 [facility] Comment on above: Performed By: #### E RUR ####[facility] Dlmpwcepoa0310 [place] [address]Dr. Joo Hansen UA PROTEIN Negative Normal NEGATIVE/ TRACE [facility] Comment on above: Performed By: #### E RUR ####[facility] Fwzqqzhzum1172 [place] [address]Dr. Joo Hansen UR MICRO IND NOT INDICATED Normal [facility] Comment on above: Performed By: #### E RUR ####[facility] Pjoszaywpb325[address] [place], [place] [address]Dr. Joo Hansen Urobilinogen Qn (U) 0.2 {Damon'U}/dL Normal 0.2 - 1. 0 [facility] Comment on above: Performed By: #### E RUR ####[facility] Gxdzhmghji9[address] [place], [place] [address]Dr. Joo Hansen LIPASEon 07-03-2022 Lipase [Catalytic activity/Vol] 34.0 U/L Critically low 73.0-393.0 [facility] Comment on above: Performed By: #### A MY, LIPA, CMP ####[facility] Awxzfnqmod4090[address] [place], [place] [address]Dr. Joo Hansen PROF 14(COMP METB)on 022 Albumin [Mass/Vol] 3.9 g/dL Normal 3.4-5.0 [facility] Comment on above: Performed By: #### A MY, LIPA, CMP ####[facility] Lpnswytaeq8[address] [place], [place] [address]Dr. Joo Hansen Albumin/Globulin [Mass ratio] 1.4 {ratio} Normal [facility] Comment on above: Performed By: #### A MY, LIPA, CMP ####[facility] Zadwedtjdc030[address] [place], [place] [address]Dr. Joo Hansen ALP [Catalytic activity/Vol] 87 U/L Normal 46-116 [facility] Comment on above: Performed By: #### A MY LIPA, CMP ####[facility] F[address]cypipyft[address] [place] [address]Dr. Joo Hansen ALT [Catalytic activity/Vol] 35 U/L Normal 14-59 [facility] Comment on above: Performed By: #### A MY, LIPA, CMP ####[facility] Lstjknvzqx9482 [place] [address]Dr. Joo Hansen Anion gap [Moles/Vol] 10.4 mmol/L Normal [facility] Comment on above: Performed By: #### A MY LIPA, CMP ####[facility] Ysivctquqt076[address] [place], [place] [address]Dr. Joo Hansen AST [Catalytic activity/Vol] 11 U/L Critically low 15-37 [facility] Comment on above: Performed By: #### A MY LIPA, CMP ####[facility] Baqpchausz[address] [place], [place] [address]Dr. Joo Hansen Bilirubin [Mass/Vol] 0.7 mg/dL Normal 0.2-1.0 [facility] Comment on above: Performed By: #### A MY LIPA, CMP ####[facility] Xvxyrzkpix9[address] [place], [place] [address]Dr. Joo Hansen Calcium [Mass/Vol] 9.2 mg/dL Normal 8.5-10.1 [facility] Comment on above: Performed By: #### A MY, LIPA, CMP ####[facility] Awkebvsimt7025 [place] [address]Dr. Joo Hansen Chloride [Moles/Vol] 100 mmol/L Normal 98-107 [facility] Comment on above: Performed By: #### A MY LIPA, CMP ####[facility] Yfiyswvdzh5549 [place] [address]Dr. Joo Hansen CO2 [Moles/Vol] 26.6 mmol/L Normal 21.0-32.0 [facility] Comment on above: Performed By: #### A MY, LIPA, CMP ####[facility] G[address]iyhcft74[address] [place] [id number]. Joo Hansen Creatinine [Mass/Vol] 0.63 mg/dL Normal 0.55-1.02 [facility] Comment on above: Performed By: #### A VERNA HUDDLESTON, CMP ####[facility] Ugxbtpleau1688 [place] [id number]. Joo Hansen EGFR-AF MOSOTHO >60 Normal >=60 [facility] Comment on above: Performed By: #### A VERNA HUDDLESTON, CMP ####[facility] Ndomubdvzu7122 [place] [id number]. Joo Hansen EGFR-NON AF MOSOTHO >60 Normal >=60 [facility] Comment on above: Performed By: #### A VERNA HUDDLESTON, CMP ####[facility] Pxsydpairh7570 [place] [address]Dr. Joo Hansen Globulin (S) [Mass/Vol] 2.8 g/dL Normal [facility] Comment on above: Performed By: #### A VERNA HUDDLESTON, CMP ####[facility] Fsimcvgvrd3237 [place] [address]Dr. Joo Hansen Glucose [Mass/Vol] 304 mg/dL Critically high 74-106 [facility] Comment on above: Performed By: #### A VERNA HUDDLESTON, CMP ####[facility] Jcjynngnhg4145 [place] [address]Dr. Joo Hansen Potassium [Moles/Vol] 4.0 mmol/L Normal 3.5-5.1 [facility] Comment on above: Performed By: #### A VERNA HUDDLESTON, CMP ####[facility] Hxhnzpqpwk1314 [place] [address]Dr. Joo Hansen Protein [Mass/Vol] 6.7 g/dL Normal 6.4-8.2 [facility] Comment on above: Performed By: #### A LENO HUDDLESTONA, CMP ####[facility] Apcdzzufvk4950[address] [place], [place] [address]Dr. Joo Hansen Sodium [Moles/Vol] 133 mmol/L Critically low 136-145 [facility] Comment on above: Performed By: #### A MY LIPA, CMP ####[facility] Kiwtpguejj8[address] [place], [place] [address]Dr. Joo Hansen Urea nitrogen [Mass/Vol] 13.0 mg/dL Normal 7.0-18.0 [facility] Comment on above: Performed By: #### A MY LIPA, CMP ####[facility] Xatdnfribn[address] [place], [place] [address]Dr. Joo Hansen Urea nitrogen/Creatinine [Mass ratio] 20.6 mg/mg Normal [facility] Comment on above: Performed By: #### A MY LIPA, CMP ####[facility] Utbsdzomrs[address] [place], [place] [address]Dr. Joo Hansen CBC AUTO DIFFon 07-01-2022 BASO # 0.1 103/ul Normal 0.0-0.1 [facility] Comment on above: Performed By: #### C BC ####[facility] Jwfcytkwlf[address] [place], [place] [address]Dr. Joo Hansen Basophils/100 WBC (Bld) 0.6 % Normal 0.2-2.0 [facility] Comment on above: Performed By: #### C BC ####[facility] Vkdnoztokd6[address] [place], [place] [address]Dr. Joo Hansen EO # 0.0 103/ul Normal 0.0-0.7 [facility] Comment on above: Performed By: #### C BC ####[facility] Zogxofuibu9[address] [place], [place] [address]Dr. Joo Hansen Eosinophils/100 WBC (Bld) 0.3 % Critically low 0.9-7.0 [facility] Comment on above: Performed By: #### C BC ####[facility] Ehlnjysznm9[address] [place], [place] [address]Dr. Joo Hansen Erythrocyte distribution width (RBC) [Ratio] 19.5 % Critically high 11.0-15.0 [facility] Comment on above: Performed By: #### C BC ####[facility] Ctockdiale8[address] [place], [place] [address]DrDonald Hansen Hematocrit (Bld) [Volume fraction] 35.1 % Critically low 36.0-48.0 [facility] Comment on above: Performed By: #### C BC ####[facility] Nqhmexzqek2620 [place] [address]DrDonald Hansen Hemoglobin (Bld) [Mass/Vol] 11.2 g/dL Critically low 12.0-16.0 [facility] Comment on above: Performed By: #### C BC ####[facility] Mromeajkkc7839 [place] [address]DrDonald Hansen IG # 0.28 10e3/ul Critically high 0.00-0.[address] [facility] Comment on above: Performed By: #### C BC ####[facility] Lnrdrnkxmn7075 [place] [address]DrDonald Hansen IG % 2.3 % Critically high 0.0-0.5 [facility] Comment on above: Performed By: #### C BC ####[facility] Zjjjuuyxve[address] [place], [place] [address]DrDonald Hansen LYMPH # 0.8 103/ul Critically low 1.2-3.8 [facility] Comment on above: Performed By: #### C BC ####[facility] Lngeyfquak0518 [place] [address]DrDonald Hansen Lymphocytes/100 WBC (Bld) 6.4 % Critically low 20.5-60.0 [facility] Comment on above: Performed By: #### C BC ####[facility] Tmqkkwplaj3691 [place] [address]DrDonald Hansen MANUAL DIFF REQ NO Normal [facility] Comment on above: Performed By: #### C BC ####[facility] Htghmljvxe[address] [place], [place] [address]DrDonald Hansen MCH (RBC) [Entitic mass] 26.0 pg Critically low 26.7-34.0 [facility] Comment on above: Performed By: #### C BC ####[facility] Ackbmjujct[address] [place], [place] [address]DrDonald Hansen MCHC (RBC) [Mass/Vol] 31.9 g/dL Normal 29.9-35.2 [facility] Comment on above: Performed By: #### C BC ####[facility] Fedjwrjvyh53[address] [place] [id number]. Joo Hansen MCV (RBC) [Entitic vol] 81.6 fL Normal 81.0-99.0 [facility] Comment on above: Performed By: #### C BC ####[facility] Vugdshgfqa[address] [place] [id number]. Joo Tyrone MONO # 0.4 103/ul Normal 0.3-0.8 [facility] Comment on above: Performed By: #### C BC ####[facility] Upzmyickxl32[address] [place] [address]Dr. Maria De Jesusfausto Hansen Monocytes/100 WBC (Bld) 3.2 % Normal 1.7-12.0 [facility] Comment on above: Performed By: #### C BC ####[facility] Vpkohoefaf[address] [place] [address]Dr. Joo Tyrone NEUT # 10.6 103/ul Critically high 1.4-6.5 [facility] Comment on above: Performed By: #### C BC ####[facility] Fmlyfkuyfc1466 [place] [address]Dr. Joo Tyrone Neutrophils/100 WBC (Bld) 87.2 % Critically high 43.0-75.0 [facility] Comment on above: Performed By: #### C BC ####[facility] Soznluhxgh6923 [place] [address]Dr. Joo Hansen Platelet mean volume (Bld) [Entitic vol] 8.9 fL Critically low 9.5-13.5 [facility] Comment on above: Performed By: #### C BC ####[facility] Yrsjmdgmfb88[address] [place] [id number]. Joo Tyrone PLT 328 103/ul Normal 150-450 [facility] Comment on above: Performed By: #### C BC ####[facility] Z[address]dftbl[address] [place] [address]Dr. Joo Hansen RBC 4.30 106/ul Normal 4.20-5.40 [facility] Comment on above: Performed By: #### C BC ####[facility] Pp[address]ftoimw[address] [place] [address]Dr. Joo Hansen WBC 12.1 103/ul Critically high 4.0-11.0 [facility] Comment on above: Performed By: #### C BC ####[facility] Aqrepgmmgl27[address] [place] [address]Dr. Joo Hansen IRON AND TIBCon 07-01-2022 % SATURATION 13.3 % Normal [facility] Comment on above: Performed By: #### F ETIBC ####[facility] Uptkhsxcnq0240 [place] [address]Dr. Joo Hansen Iron [Mass/Vol] 41.0 ug/dL Critically low 50.0-170.0 [facility] Comment on above: Performed By: #### F ETIBC ####[facility] Jwactfntdq[address] [place], [place] [address]Dr. Joo Hansen TIBC DIRECT 309.0 ug/dL Normal 250.0-450.0 The [facility] Comment on above: Performed By: #### F ETIBC ####[facility] Qkdznfwigy59[address] [place], [place] [address]Dr. Joo Hansen CBC AUTO DIFFon 06-17-2022 BASO # 0.0 103/ul Normal 0.0-0.1 [facility] Comment on above: Performed By: #### C BC ####[facility] Emqkzznbae54[address] [place] [address]Dr. Joo Hansen Basophils/100 WBC (Bld) 0.2 % Normal 0.2-2.0 [facility] Comment on above: Performed By: #### C BC ####[facility] Xgszjqhhdp514[address] [place], [place] [address]Dr. Joo Hansen EO # 0.0 103/ul Normal 0.0-0.7 [facility] Comment on above: Performed By: #### C BC ####[facility] Esglloejih37[address] [place] [address]Dr. Joo Hansen Eosinophils/100 WBC (Bld) 0.1 % Critically low 0.9-7.0 [facility] Comment on above: Performed By: #### C BC ####[facility] Bazvmhkual5620 [place] [address]Dr. Joo Hansen Erythrocyte distribution width (RBC) [Ratio] 14.5 % Normal 11.0-15.0 [facility] Comment on above: Performed By: #### C BC ####[facility] Irwpoopalr9423[address] [place], [place] [address]Dr. Joo Hansen Hematocrit (Bld) [Volume fraction] 30.2 % Critically low 36.0-48.0 [facility] Comment on above: Performed By: #### C BC ####[facility] Rgnwsupkir8845[address] [place], [place] [address]Dr. Joo Hansen Hemoglobin (Bld) [Mass/Vol] 9.7 g/dL Critically low 12.0-16.0 [facility] Comment on above: Performed By: #### C BC ####[facility] Cmytqwlxoc12[address] [place], [place] [address]Dr. Joo Hansen IG # 0.23 10e3/ul Critically high 0.00-0.03 [facility] Comment on above: Performed By: #### C BC ####[facility] Zqoqlrrhct65[address] [place] [address]Dr. Joo Hansen IG % 1.4 % Critically high 0.0-0.5 [facility] Comment on above: Performed By: #### C BC ####[facility] Heewkdfqrn8[address] [place], [place] [address]Dr. Joo Hansen LYMPH # 2.3 103/ul Normal 1.2-3.8 [facility] Comment on above: Performed By: #### C BC ####[facility] Pubzvnhnjy6618[address] [place], [place] [address]Dr. Joo Hansen Lymphocytes/100 WBC (Bld) 13.8 % Critically low 20.5-60.0 [facility] Comment on above: Performed By: #### C BC ####[facility] Ununysfkyh04[address] [place] [id number]. Joo Hansen MANUAL DIFF REQ NO Normal [facility] Comment on above: Performed By: #### C BC ####[facility] Revbvoochk3263 [place] [id number]. Joo Hansen MCH (RBC) [Entitic mass] 24.8 pg Critically low 26.7-34.0 [facility] Comment on above: Performed By: #### C BC ####[facility] Eaqnufnhlf9975[address] [place], [place] [address]Dr. Joo Hansen MCHC (RBC) [Mass/Vol] 32.1 g/dL Normal 29.9-35.2 [facility] Comment on above: Performed By: #### C BC ####[facility] Kimqtckeyd708[address] [place], [place] [address]Dr. Joo Tyrone MCV (RBC) [Entitic vol] 77.2 fL Critically low 81.0-99.0 [facility] Comment on above: Performed By: #### C BC ####[facility] Slqjdvepea32[address] [place] [address]Dr. Joo Tyrone MONO # 1.3 103/ul Critically high 0.3-0.8 [facility] Comment on above: Performed By: #### C BC ####[facility] Raiyqaabti9090[address] [place], [place] [address]Dr. Joo Hansen Monocytes/100 WBC (Bld) 7.9 % Normal 1.7-12.0 [facility] Comment on above: Performed By: #### C BC ####[facility] Wxyzwhsvmv[address] [place], [place] [address]Dr. Joo Hansen NEUT # 12.7 103/ul Critically high 1.4-6.5 [facility] Comment on above: Performed By: #### C BC ####[facility] Cpeuzcchkg9[address] [place], [place] [address]Dr. Joo Hansen Neutrophils/100 WBC (Bld) 76.6 % Critically high 43.0-75.0 [facility] Comment on above: Performed By: #### C BC ####[facility] Zdsackuzjh0194 [place] [id number]. Joo Hansen Platelet mean volume (Bld) [Entitic vol] 9.3 fL Critically low 9.5-13.5 [facility] Comment on above: Performed By: #### C BC ####[facility] Qqbsaoynnl89[address] [place] [address]Dr. Joo Hansen PLT 370 103/ul Normal 150-450 [facility] Comment on above: Performed By: #### C BC ####[facility] Sprbrvjsxw4[address] [place] [id number]. Joo Hansen RBC 3.91 106/ul Critically low 4.20-5.40 [facility] Comment on above: Performed By: #### C BC ####[facility] Qmllyxwiot2086 [place] [address]Dr. Joo Hansen WBC 16.5 103/ul Critically high 4.0-11.0 [facility] Comment on above: Performed By: #### C BC ####[facility] Najpzglhrf9[address] [place] [address]Dr. Joo Hansen POINT OF CARE GLUCOSEon 11-0 Glucose [Mass/Vol] 357 mg/dL Critically high 74-106 [facility] Comment on above: Performed By: #### P OCGLUC ####[facility] Lvrqzdzweh36[address] [place] [address]Dr. Joo Hansen Glucose [Mass/Vol] 234 mg/dL Critically high 74-106 [facility] Comment on above: Performed By: #### P OCGLUC ####[facility] Ggbsydqtnb5166 [place] [address]Dr. Joo Hansen PROF CHEM 8 (BAS METB)on Anion gap [Moles/Vol] 11.4 mmol/L Normal [facility] Comment on above: Performed By: #### B MP ####[facility] Cgzehpxcsr0476 [place] [address]Dr. Joo Hansen Calcium [Mass/Vol] 8.8 mg/dL Normal 8.5-10.1 [facility] Comment on above: Performed By: #### B MP ####[facility] Sfdvadeqwr5323 [place] [address]Dr. Joo Hansen Chloride [Moles/Vol] 106 mmol/L Normal 98-107 [facility] Comment on above: Performed By: #### B MP ####[facility] Rthniimruv5545 [place] [address]Dr. Joo Hansen CO2 [Moles/Vol] 27.3 mmol/L Normal 21.0-32.0 [facility] Comment on above: Performed By: #### B MP ####[facility] Jwjbeupiag7[address] [place] [address]Dr. Joo Hansen Creatinine [Mass/Vol] 0.58 mg/dL Normal 0.55-1.02 [facility] Comment on above: Performed By: #### B MP ####[facility] Ijwajjwdfl7953 [place] [address]Dr. Joo Tyrone EGFR-AF MOSOTHO >60 Normal >=60 [facility] Comment on above: Performed By: #### B MP ####[facility] Frpoiilfok9[address] [place], [place] [address]Dr. Joo Hansen EGFR-NON AF MOSOTHO >60 Normal >=60 [facility] Comment on above: Performed By: #### B MP ####[facility] Phlcxrekiq7289 [place] [address]Dr. Maria De Jesusfausto Hansen Glucose [Mass/Vol] 208 mg/dL Critically high 74-106 [facility] Comment on above: Performed By: #### B MP ####[facility] Pkzrgeitfy5835 [place] [address]Dr. Maria De Jesusfausto Hansen Potassium [Moles/Vol] 3.7 mmol/L Normal 3.5-5.1 [facility] Comment on above: Performed By: #### B MP ####[facility] Kmlgtpxmyi9204 [place] [address]Dr. Joo Hansen Sodium [Moles/Vol] 141 mmol/L Normal 136-145 [facility] Comment on above: Performed By: #### B MP ####[facility] Ibqsgtsxvp2225 [place] [id number]. Joo Tyrone Urea nitrogen [Mass/Vol] 17.0 mg/dL Normal 7.0-18.0 [facility] Comment on above: Performed By: #### B MP ####[facility] Oqvduillkj[address] [place], [place] [address]Dr. Maria De Jesusfausto Hansen Urea nitrogen/Creatinine [Mass ratio] 29.3 mg/mg Normal [facility] Comment on above: Performed By: #### B MP ####[facility] Ebncmsxkaf147[address] [place], [place] [address]Dr. Maria De Jesusfausto Hansen CBC AUTO DIFFon 06-16-2022 BASO # 0.0 103/ul Normal 0.0-0.1 [facility] Comment on above: Performed By: #### C BC ####[facility] Kfcvtngyoj[address] [place], [place] [address]Dr. Joo Hansen Basophils/100 WBC (Bld) 0.1 % Critically low 0.2-2.0 [facility] Comment on above: Performed By: #### C BC ####[facility] Cqrfnvljfm6[address] [place], [place] [address]Dr. Maria De Jesusfausto Hansen EO # 0.0 103/ul Normal 0.0-0.7 [facility] Comment on above: Performed By: #### C BC ####[facility] Csixklostq4395[address] [place], [place] [address]Dr. Joo Hansen Eosinophils/100 WBC (Bld) 0.1 % Critically low 0.9-7.0 [facility] Comment on above: Performed By: #### C BC ####[facility] Oihxyzpbbu36[address] [place], [place] [address]Dr. Maria De Jesusfausto Hansen Erythrocyte distribution width (RBC) [Ratio] 13.8 % Normal 11.0-15.0 [facility] Comment on above: Performed By: #### C BC ####[facility] Ufdhjclmyo23[address] [place], [place] [address]Dr. Joo Hansen Hematocrit (Bld) [Volume fraction] 30.9 % Critically low 36.0-48.0 [facility] Comment on above: Performed By: #### C BC ####[facility] Gtrozbyemb4685 [place] [address]Dr. Joo Hansen Hemoglobin (Bld) [Mass/Vol] 9.9 g/dL Critically low 12.0-16.0 [facility] Comment on above: Performed By: #### C BC ####[facility] Dfgcdjthke0320 [place] [address]Dr. Joo Hansen IG # 0.13 10e3/ul Critically high 0.00-0.03 [facility] Comment on above: Performed By: #### C BC ####[facility] Fbwuaogpmr4445 [place] [address]Dr. Joo Tyrone IG % 1.4 % Critically high 0.0-0.5 [facility] Comment on above: Performed By: #### C BC ####[facility] Nghhmbwmue8813 [place] [address]Dr. Joo Tyrone LYMPH # 0.8 103/ul Critically low 1.2-3.8 [facility] Comment on above: Performed By: #### C BC ####[facility] Sxbkhkrfng2177 [place] [address]Dr. Joo Tyrone Lymphocytes/100 WBC (Bld) 8.1 % Critically low 20.5-60.0 [facility] Comment on above: Performed By: #### C BC ####[facility] Kdwxitivfz4411 [place] [address]Dr. Joo Tyrone MANUAL DIFF REQ NO Normal [facility] Comment on above: Performed By: #### C BC ####[facility] Wkvrukryfn5533 [place] [id number]. Joo Hansen MCH (RBC) [Entitic mass] 24.4 pg Critically low 26.7-34.0 [facility] Comment on above: Performed By: #### C BC ####[facility] Pwuwvmzsrz8312 [place] [id number]. Joo Tyrone MCHC (RBC) [Mass/Vol] 32.0 g/dL Normal 29.9-35.2 [facility] Comment on above: Performed By: #### C BC ####[facility] Vanoqudygw9547 [place] [id number] Prettyfausto Tyrone MCV (RBC) [Entitic vol] 76.1 fL Critically low 81.0-99.0 [facility] Comment on above: Performed By: #### C BC ####[facility] Rphldwyirn4351 [place] [id number] Hansen MONO # 0.1 103/ul Critically low 0.3-0.8 [facility] Comment on above: Performed By: #### C BC ####[facility] Mkkogjuasu9458 [place] [address]DrDonald Hansen Monocytes/100 WBC (Bld) 1.5 % Critically low 1.7-12.0 [facility] Comment on above: Performed By: #### C BC ####[facility] Cvssvpxrkk[address] [place], [place] [address]DrDonald Hansen NEUT # 8.5 103/ul Critically high 1.4-6.5 [facility] Comment on above: Performed By: #### C BC ####[facility] Hofnplvsia39[address] [place], [place] [address]DrDonald Hansen Neutrophils/100 WBC (Bld) 88.8 % Critically high 43.0-75.0 [facility] Comment on above: Performed By: #### C BC ####[facility] Vnxnldxurq9880[address] [place], [place] [address]DrDonald Hansen Platelet mean volume (Bld) [Entitic vol] 9.9 fL Normal 9.5-13.5 [facility] Comment on above: Performed By: #### C BC ####[facility] Nctqhcunnm7[address] [place], [place] [address]DrDonald Hansen PLT 289 103/ul Normal 150-450 [facility] Comment on above: Performed By: #### C BC ####[facility] Cekrnkhgqg4955 [place] [id number] Hansen RBC 4.06 106/ul Critically low 4.20-5.40 [facility] Comment on above: Performed By: #### C BC ####[facility] Ixtvozztzv8211 [place] [id number]. Joo Hansen WBC 9.6 103/ul Normal 4.0-11.0 [facility] Comment on above: Performed By: #### C BC ####[facility] Ciiccjziju4786 [place] [id number]. Joo Hansen IRON AND TIBCon 06-16-2022 % SATURATION 3.9 % Normal [facility] Comment on above: Performed By: #### F ETIBC ####[facility] Ljxgnyllam3330 [place] [address]Dr. Joo Hansen Iron [Mass/Vol] 14.0 ug/dL Critically low 50.0-170.0 [facility] Comment on above: Performed By: #### F ETIBC ####[facility] Nmsjdoytge0092 [place] [address]Dr. Joo Hansen TIBC DIRECT 356.0 ug/dL Normal 250.0-450.0 [facility] Comment on above: Performed By: #### F ETIBC ####[facility] Gumdukclqq3475[address] [place], [place] [address]Dr. Joo Hansen POINT OF CARE GLUCOSEon Glucose [Mass/Vol] 291 mg/dL Critically high 74-106 [facility] Comment on above: Performed By: #### P OCGLUC ####[facility] Ruwoqinzwi6522 [place] [address]Dr. Joo Hansen Glucose [Mass/Vol] 381 mg/dL Critically high 74-106 [facility] Comment on above: Performed By: #### P OCGLUC ####[facility] Qvcbdydkzk5369 [place] [address]Dr. Joo Hansen Glucose [Mass/Vol] 432 mg/dL Critically high 74-106 [facility] Comment on above: Performed By: #### P OCGLUC ####[facility] Adirczvkiu5227[address] [place], [place] [address]Dr. Joo Hansen Glucose [Mass/Vol] 420 mg/dL Critically high 74-106 [facility] Comment on above: Performed By: #### P OCGLUC ####[facility] Srkubroehp4097 [place] [address]Dr. Maria De Jesusfausto Hansen Glucose [Mass/Vol] 476 mg/dL Critically high 74-106 [facility] Comment on above: Performed By: #### P OCGLUC ####[facility] Aybrznkctf8277[address] [place], [place] [address]Dr. Joo Hansen PROF CHEM 8 (BAS METB)on Anion gap [Moles/Vol] 12.6 mmol/L Normal [facility] Comment on above: Performed By: #### B MP ####[facility] Gjdugzpaed9[address] [place], [place] [address]Dr. Joo Hansen Calcium [Mass/Vol] 8.8 mg/dL Normal 8.5-10.1 [facility] Comment on above: Performed By: #### B MP ####[facility] Oqlezetgza5769[address] [place], [place] [address]Dr. Joo Hansen Chloride [Moles/Vol] 99 mmol/L Normal 98-107 [facility] Comment on above: Performed By: #### B MP ####[facility] Zetdsfwrxp6400[address] [place], [place] [address]Dr. Joo Hansen CO2 [Moles/Vol] 23.3 mmol/L Normal 21.0-32.0 [facility] Comment on above: Performed By: #### B MP ####[facility] Rihedqcknu648[address] [place], [place] [address]Dr. Joo Hansen Creatinine [Mass/Vol] 0.63 mg/dL Normal 0.55-1.02 [facility] Comment on above: Performed By: #### B MP ####[facility] Luudqjrziw167[address] [place], [place] [address]Dr. Joo Hansen EGFR-AF MOSOTHO >60 Normal >=60 [facility] Comment on above: Performed By: #### B MP ####[facility] Drlpdwdqav0844[address] [place], [place] [address]Dr. Joo Hansen EGFR-NON AF MOSOTHO >60 Normal >=60 [facility] Comment on above: Performed By: #### B MP ####[facility] Sbytlogplb1094 [place] [address]Dr. Joo Hansen Glucose [Mass/Vol] 422 mg/dL Critically high 74-106 [facility] Comment on above: Performed By: #### B MP ####[facility] Xfzcvdxcqg3938[address] [place], [place] [address]Dr. Joo Tyrone Potassium [Moles/Vol] 3.9 mmol/L Normal 3.5-5.1 [facility] Comment on above: Performed By: #### B MP ####[facility] Ipsdrhcxwe4587[address] [place], [place] [address]Dr. Joo Tyrone Sodium [Moles/Vol] 131 mmol/L Critically low 136-145 Th [facility] Comment on above: Performed By: #### B MP ####[facility] Kfhmzppokf[address] [place], [place] [address]Dr. Joo Tyrone Urea nitrogen [Mass/Vol] 16.0 mg/dL Normal 7.0-18.0 [facility] Comment on above: Performed By: #### B MP ####[facility] Urppedzdoe668[address] [place], [place] [address]Dr. Joo Tyrone Urea nitrogen/Creatinine [Mass ratio] 25.4 mg/mg Normal [facility] Comment on above: Performed By: #### B MP ####[facility] Tusfjbrooj9384[address] [place], [place] [address]Dr. Joo Tyrone BNPon 06-15-2022 Natriuretic peptide B (Bld) [Mass/Vol] 248.0 pg/mL Normal <=900.0 [facility] Comment on above: Performed By: #### C MP, BNP ####[facility] Lzgweqzcpg64[address] [place], [place] [address]Dr. Joo Tyrone CBC AUTO DIFFon 06-15-2022 BASO # 0.1 103/ul Normal 0.0-0.1 [facility] Comment on above: Performed By: #### C BC ####[facility] Mfehxixlpb4936 [place] [id number]. Joo Hansen Basophils/100 WBC (Bld) 0.5 % Normal 0.2-2.0 [facility] Comment on above: Performed By: #### C BC ####[facility] Xvrysdjhos3905 [place] [id number]. Joo Hansen EO # 0.2 103/ul Normal 0.0-0.7 [facility] Comment on above: Performed By: #### C BC ####[facility] Gfrctyyhqp84[address] [place], [place] [address]Dr. Joo Hansen Eosinophils/100 WBC (Bld) 1.9 % Normal 0.9-7.0 [facility] Comment on above: Performed By: #### C BC ####[facility] Vpmsytrdgv057[address] [place], [place] [address]Dr. Joo Hansen Erythrocyte distribution width (RBC) [Ratio] 14.1 % Normal 11.0-15.0 [facility] Comment on above: Performed By: #### C BC ####[facility] Atbucokyzj1999[address] [place], [place] [address]Dr. Joo Hansen Hematocrit (Bld) [Volume fraction] 31.0 % Critically low 36.0-48.0 [facility] Comment on above: Performed By: #### C BC ####[facility] Ifyocsfaig[address] [place], [place] [address]Dr. Joo Hansen Hemoglobin (Bld) [Mass/Vol] 9.9 g/dL Critically low 12.0-16.0 [facility] Comment on above: Performed By: #### C BC ####[facility] Kgnctnuqkc3885 [place] [id number]. Joo Hansen IG # 0.11 10e3/ul Critically high 0.00-0.[address] [facility] Comment on above: Performed By: #### C BC ####[facility] Tgcogniogj7[address] [place], [place] [address]Dr. Joo Hansen IG % 0.9 % Critically high 0.0-0.5 [facility] Comment on above: Performed By: #### C BC ####[facility] Otudikieep0393 [place] [id number]. Joo Hansen LYMPH # 4.0 103/ul Critically high 1.2-3.8 [facility] Comment on above: Performed By: #### C BC ####[facility] Diasvvkrxs1286 [place] [id number]. Joo Hansen Lymphocytes/100 WBC (Bld) 33.2 % Normal 20.5-60.0 [facility] Comment on above: Performed By: #### C BC ####[facility] Yndhfxrphn5124 [place] [id number]. Joo Tyrone MANUAL DIFF REQ NO Normal [facility] Comment on above: Performed By: #### C BC ####[facility] Tsspyknzyj9768 [place] [id number]. Joo Tyrone MCH (RBC) [Entitic mass] 24.6 pg Critically low 26.7-34.0 [facility] Comment on above: Performed By: #### C BC ####[facility] Seviyhpkir0308 [place] [id number]. Joo Hansen MCHC (RBC) [Mass/Vol] 31.9 g/dL Normal 29.9-35.2 [facility] Comment on above: Performed By: #### C BC ####[facility] Emqyktqsnu8270 [place] [id number]. Joo Tyrone MCV (RBC) [Entitic vol] 76.9 fL Critically low 81.0-99.0 [facility] Comment on above: Performed By: #### C BC ####[facility] Bnhdirsijl0482 [place] [id number]. Joo Tyrone MONO # 1.1 103/ul Critically high 0.3-0.8 [facility] Comment on above: Performed By: #### C BC ####[facility] Nvxlgmryzt6225 [place] [id number]. Joo Tyrone Monocytes/100 WBC (Bld) 9.0 % Normal 1.7-12.0 [facility] Comment on above: Performed By: #### C BC ####[facility] Yggsqrfjbr5099 [place] [id number]. Joo Hansen NEUT # 6.5 103/ul Normal 1.4-6.5 [facility] Comment on above: Performed By: #### C BC ####[facility] Uwwyaxrgnz5966 [place], [place] [address]Ra. Joo Hansen Neutrophils/100 WBC (Bld) 54.5 % Normal 43.0-75.0 [facility] Comment on above: Performed By: #### C BC ####[facility] Lvegapyfqc3048 [place] [id number]. Joo Hansen Platelet mean volume (Bld) [Entitic vol] 9.1 fL Critically low 9.5-13.5 [facility] Comment on above: Performed By: #### C BC ####[facility] Nolnmqwcli1561 [place] [id number]. Joo Hansen PLT 373 103/ul Normal 150-450 [facility] Comment on above: Performed By: #### C BC ####[facility] Eiiegazuoq5867 [place] [id number]. Joo Hansen RBC 4.03 106/ul Critically low 4.20-5.40 [facility] Comment on above: Performed By: #### C BC ####[facility] Wsfqwxgtdy4623 [place] [id number]. Joo Hansen WBC 11.9 103/ul Critically high 4.0-11.0 [facility] Comment on above: Performed By: #### C BC ####[facility] Ruibgdzcyc5767 [place] [id number]. Joo Hansen CULTURE BLOODon 06-15-2022 Microscopic examination of blood, culture Culture Observations: NO GROWTH AT 5 DAYS. Normal [facility] Comment on above: Performed By: #### B LDCX2 ####[facility] Clauciybzz9240 [place] [id number]. Joo Hansen Performed By: #### B LDCX1 ####[facility] Vulfnrjcgx7469 [place] [id number]. Joo Hansen CULTURE SPUTUMon 06-15-2022 CULTURE SPUTUM Culture Observations : EBENEZER TO FOLLOW. Isolate 1 Enterobacter kobei Light growth of Normal [facility] [facility] Comment on above: Performed By: #### S PUTCX ####[facility] [address] [place], [place] [address]Fc. Joo Hansen CULTURE URINEon 06-15-2022 CULTURE URINE Culture Observations : LIGHT GROWTH OF MIXED GENITAL ZACHARY. NO POTENTIAL PATHOGENS SEEN. Normal [facility] Comment on above: Performed By: #### U RCX ####[facility] [address] [place], [place] [address]Iq. Joo [facility] Covid-19 PCR (CVDTBH)on 05-18 SARS-CoV-2 (COVID-19) RNA RAMANDEEP+probe Ql (Unsp spec) Not detected Normal NOT DETECTED [facility] Comment on above: Result Comment: When diagnostic testing is negative, the possibility of a false negative should be considered inthe context of a patient's recent exposures and the presence of clinical signs and symptomsconsistent with SARS-CoV-2.This test is not yet approved or cleared by the [place] FDA. When there are no FDA-approved or cleared tests available, and other criteria are met, FDA can make tests available under an emergency access mechanism called an Emergency Use Authorization (EUA). The EUA for this test is supported by the Manager Background of Health and Human Service's declaration that circumstances exist to justify the emergency use of in vitro diagnostics for the detection and/or diagnosis of the virus that causes COVID-19. This EUA will remain in effect for the duration of the COVID-19 declaration justifying emergency of IVDs, unless it is terminated or revoked by the FDA (after which the test may no longer be used). Performed By: #### C VDTBH ####[facility] [address] [place] [id number]. Joo Hansen ECHOCARDIO M/2D COMPLETEon 1 ECHOCARDIO M/2D COMPLETE Normal [facility] POINT OF CARE GLUCOSEon 05-18 Glucose [Mass/Vol] 521 mg/dL Critically high 74-106 [facility] Comment on above: Result Comment: Will Repeat Test Performed By: #### P OCGLUC ####[facility] [address] [place] [id number]. Joo Hansen POCGLUC >600 Critically high 74-106 [facility] [place] [facility] Comment on above: Result Comment: Will Repeat Test Performed By: #### P OCGLUC ####[facility] Wxcbwqoosp18[address] [place] [id number]. Joo Hansen Glucose [Mass/Vol] 442 mg/dL Critically high 74-106 [facility] Comment on above: Performed By: #### P OCGLUC ####[facility] Bbbrrttlea34[address] [place] [id number]. Joo Hansen Glucose [Mass/Vol] 289 mg/dL Critically high 74-106 [facility] Comment on above: Performed By: #### P OCGLUC ####[facility] [address]acbr[address] [place] [address]Dr. Joo Hansen PROF 14(COMP METB)on 022 Albumin [Mass/Vol] 3.4 g/dL Normal 3.4-5.0 [facility] Comment on above: Performed By: #### C MP, BNP ####[facility] [address] [place], [place] [address]Dr. Joo Hansen Albumin/Globulin [Mass ratio] 1.2 {ratio} Normal [facility] Comment on above: Performed By: #### C MP, BNP ####[facility] Zvbzirawdx25[address] [place] [address]Dr. Joo Hansen ALP [Catalytic activity/Vol] 84 U/L Normal 46-116 [facility] Comment on above: Performed By: #### C MP, BNP ####[facility] Egqzmylswa[address] [place] [address]Dr. Joo Hansen ALT [Catalytic activity/Vol] 25 U/L Normal 14-59 [facility] Comment on above: Performed By: #### C MP, BNP ####[facility] Txqtnuhyeh24[address] [place] [id number]. Joo Hansen Anion gap [Moles/Vol] 9.5 mmol/L Normal [facility] Comment on above: Performed By: #### C MP, BNP ####[facility] Dpnhoyklkh5274 [place] [address]Dr. Joo Hansen AST [Catalytic activity/Vol] 9 U/L Critically low 15-37 [facility] Comment on above: Performed By: #### C MP, BNP ####[facility] Okxinpzgcj[address] [place], [place] [address]Dr. Joo Hansen Bilirubin [Mass/Vol] 0.3 mg/dL Normal 0.2-1.0 [facility] Comment on above: Performed By: #### C MP, BNP ####[facility] Rsnceggfgl3434[address] [place], [place] [address]Dr. Joo Hansen Calcium [Mass/Vol] 8.7 mg/dL Normal 8.5-10.1 [facility] Comment on above: Performed By: #### C MP, BNP ####[facility] Lsymzmcude9[address] [place], [place] [address]Dr. Joo Hansen Chloride [Moles/Vol] 103 mmol/L Normal 98-107 [facility] Comment on above: Performed By: #### C MP, BNP ####[facility] Xlxxvzhivm[address] [place], [place] [address]Dr. Joo Hansen CO2 [Moles/Vol] 26.1 mmol/L Normal 21.0-32.0 [facility] Comment on above: Performed By: #### C MP, BNP ####[facility] Iiewnmrpci5764[address] [place], [place] [address]Dr. Joo Hansen Creatinine [Mass/Vol] 0.59 mg/dL Normal 0.55-1.02 [facility] Comment on above: Performed By: #### C MP, BNP ####[facility] Nojmfglhje6[address] [place], [place] [address]Dr. Joo Tyrone EGFR-AF MOSOTHO >60 Normal >=60 [facility] Comment on above: Performed By: #### C MP, BNP ####[facility] Jhdkiggyma[address] [place], [place] [address]Dr. Maria De Jesusfausto Tyrone EGFR-NON AF MOSOTHO >60 Normal >=60 [facility] Comment on above: Performed By: #### C MP, BNP ####[facility] Fqfluhhwwy17[address] [place], [place] [address]Dr. Joo Hansen Globulin (S) [Mass/Vol] 2.9 g/dL Normal [facility] Comment on above: Performed By: #### C MP, BNP ####[facility] Uojgqvgtqy[address] [place], [place] [address]Dr. Joo Hansen Glucose [Mass/Vol] 255 mg/dL Critically high 74-106 [facility] Comment on above: Performed By: #### C MP, BNP ####[facility] Lohqrycrmi69[address] [place], [place] [address]Dr. Joo Hansen Potassium [Moles/Vol] 3.6 mmol/L Normal 3.5-5.1 [facility] Comment on above: Performed By: #### C MP, BNP ####[facility] Auadogwkaf[address] [place], [place] [address]Dr. Joo Hansen Protein [Mass/Vol] 6.3 g/dL Critically low 6.4-8.2 Th [facility] Comment on above: Performed By: #### C MP, BNP ####[facility] Kmkdjosrcv7[address] [place], [place] [address]Dr. Joo Hansen Sodium [Moles/Vol] 135 mmol/L Critically low 136-145 Th [facility] Comment on above: Performed By: #### C MP, BNP ####[facility] Jasijnbtez9711[address] [place], [place] [address]Dr. Joo Hansen Urea nitrogen [Mass/Vol] 14.0 mg/dL Normal 7.0-18.0 [facility] Comment on above: Performed By: #### C MP, BNP ####[facility] Uifebfbunl7059[address] [place], [place] [address]Dr. Joo Hansen Urea nitrogen/Creatinine [Mass ratio] 23.7 mg/mg Normal [facility] Comment on above: Performed By: #### C MP, BNP ####[facility] Qrxzfhtuyc9822[address] [place], [place] [address]Dr. Joo Hansen PROF CHEM 8 (BAS METB)on Anion gap [Moles/Vol] 16.6 mmol/L Normal [facility] Comment on above: Performed By: #### B MP ####[facility] Eregewfiqb16[address] [place] [address]Dr. Joo Hansen Calcium [Mass/Vol] 8.8 mg/dL Normal 8.5-10.1 [facility] Comment on above: Performed By: #### B MP ####[facility] Kttrdtzemm26[address] [place], [place] [address]Dr. Joo Hansen Chloride [Moles/Vol] 99 mmol/L Normal 98-107 [facility] Comment on above: Performed By: #### B MP ####[facility] Oommylxuyv66[address] [place], [place] [address]Dr. Joo Hansen CO2 [Moles/Vol] 20.3 mmol/L Critically low 21.0-32.0 [facility] Comment on above: Performed By: #### B MP ####[facility] Dqqcgcxefb649[address] [place], [place] [address]Dr. Joo Hansen Creatinine [Mass/Vol] 1.08 mg/dL Critically high 0.55-1.02 [facility] Comment on above: Performed By: #### B MP ####[facility] Qnojshhsav1946[address] [place], [place] [address]Dr. Joo Hansen EGFR-AF MOSOTHO >60 Normal >=60 [facility] Comment on above: Performed By: #### B MP ####[facility] Cqvhqvpfop[address] [place], [place] [address]Dr. Joo Hansen EGFR-NON AF MOSOTHO 51 mL/min/1.73m2 Critically low >=60 [facility] Comment on above: Performed By: #### B MP ####[facility] Dpwweszqqv7089[address] [place], [place] [address]Dr. Joo Hansen Glucose [Mass/Vol] 495 mg/dL Critically high 74-106 [facility] Comment on above: Performed By: #### B MP ####[facility] Bgyrufopfm2265[address] [place], [place] [address]Dr. Joo Hansen Potassium [Moles/Vol] 3.9 mmol/L Normal 3.5-5.1 [facility] Comment on above: Performed By: #### B MP ####[facility] Gqyjrlgirp69[address] [place], [place] [address]Dr. Joo Hansen Sodium [Moles/Vol] 132 mmol/L Critically low 136-145 Th e [facility] Comment on above: Performed By: #### B MP ####[facility] Nxlkdemekm[address] [place], [place] [address]Dr. Joo Hansen Urea nitrogen [Mass/Vol] 19.0 mg/dL Critically high 7.0-18.0 [facility] Comment on above: Performed By: #### B MP ####[facility] Uirvhcnoqf8[address] [place], [place] [address]Dr. Joo Hansen Urea nitrogen/Creatinine [Mass ratio] 17.6 mg/mg Normal [facility] Comment on above: Performed By: #### B MP ####[facility] Vejdxwkwyw6[address] [place], [place] [address]Dr. Joo Hansen SPUTUM GRAM STAINon 06-15-20 COMMENTS Normal [facility] Comment on above: Performed By: #### S PUTGS ####[facility] Sbfiqludiy66[address] [place], [place] [address]Dr. Joo Hansen DIPHTHEROIDS Normal [facility] Comment on above: Performed By: #### S PUTGS ####[facility] Sitlrhdgvy8315[address] [place], [place] [address]Dr. Joo Hansen EPITHELIALS <25 Normal [facility] Comment on above: Performed By: #### S PUTGS ####[facility] Wxnvzgswxs4135[address] [place], [place] [address]Dr. Joo Hansen FUNGAL ELEMENTS Normal [facility] Comment on above: Performed By: #### S PUTGS ####[facility] Elsvmyzqaq254[address] [place], [place] [address]Dr. Joo Hansen GRAM NEG BACILLI Normal [facility] Comment on above: Performed By: #### S PUTGS ####[facility] Obqohvrzjc1854[address] [place], [place] [address]Dr. Joo Hansen GRAM NEG DIPPLOCOCCI Normal [facility] Comment on above: Performed By: #### S PUTGS ####[facility] Qkknacettu9466[address] [place], [place] [address]Dr. Joo Hansen GRAM POS BACILLI RARE Normal [facility] Comment on above: Performed By: #### S PUTGS ####[facility] R[address]cbon[address] [place] [address]Dr. Joo Hansen GRAM POSITIVE COCCI MODERATE Normal [facility] Comment on above: Performed By: #### S PUTGS ####[facility] Iumtvhkexx[address] [place], [place] [address]Dr. Joo Hansen WBC (Bld) [#/Vol] 10*3/uL Normal [facility] Comment on above: Performed By: #### S PUTGS ####[facility] Bzbcbibdjx498[address] [place], [place] [address]Dr. Joo Hansen XR CHEST 2 Von 06-15-2022 XR CHEST 2 V Normal [facility] CBC AUTO DIFFon 05-13-2022 BASO # 0.1 103/ul Normal 0.0-0.1 [facility] Comment on above: Performed By: #### C BC ####[facility] Mmowpilroi[address] [place], [place] [address]Dr. Joo Hansen Basophils/100 WBC (Bld) 0.6 % Normal 0.2-2.0 [facility] Comment on above: Performed By: #### C BC ####[facility] Kjupvqrqqx9[address] [place], [place] [address]Dr. Joo Hansen EO # 0.3 103/ul Normal 0.0-0.7 [facility] Comment on above: Performed By: #### C BC ####[facility] Xcvvtahoyp1189[address] [place], [place] [address]Dr. Joo Hansen Eosinophils/100 WBC (Bld) 2.2 % Normal 0.9-7.0 [facility] Comment on above: Performed By: #### C BC ####[facility] Qiaxdkhpqj849[address] [place], [place] [address]Dr. Joo Hansen Erythrocyte distribution width (RBC) [Ratio] 13.8 % Normal 11.0-15.0 [facility] Comment on above: Performed By: #### C BC ####[facility] [address]mshs[address] [place] [address]Dr. Joo Hansen Hematocrit (Bld) [Volume fraction] 35.1 % Critically low 36.0-48.0 [facility] Comment on above: Performed By: #### C BC ####[facility] Wsgnjeqvmn9377[address] [place], [place] [address]Dr. Maria De Jesusfausto Hansen Hemoglobin (Bld) [Mass/Vol] 11.1 g/dL Critically low 12.0-16.0 [facility] Comment on above: Performed By: #### C BC ####[facility] Wkycrbzycl17[address] [place], [place] [address]Dr. Joo Hansen IG # 0.11 10e3/ul Critically high 0.00-0.03 [facility] Comment on above: Performed By: #### C BC ####[facility] Zpwcebcrsl374[address] [place], [place] [address]Dr. Maria De Jesusfausto Hansen IG % 0.8 % Critically high 0.0-0.5 [facility] Comment on above: Performed By: #### C BC ####[facility] Uygbenqrps[address] [place], [place] [address]DrDonald Hansen LYMPH # 3.1 103/ul Normal 1.2-3.8 [facility] Comment on above: Performed By: #### C BC ####[facility] Kdyoqliilb[address] [place], [place] [address]DrDonald Hansen Lymphocytes/100 WBC (Bld) 23.8 % Normal 20.5-60.0 [facility] Comment on above: Performed By: #### C BC ####[facility] Riujectefo94[address] [place], [place] [address]DrDonald Hansen MANUAL DIFF REQ NO Normal [facility] Comment on above: Performed By: #### C BC ####[facility] Ryztsmllkg618[address] [place], [place] [address]DrDonald Hansen MCH (RBC) [Entitic mass] 25.6 pg Critically low 26.7-34.0 [facility] Comment on above: Performed By: #### C BC ####[facility] [address]gik[address] [place] [address]Dr. Joo Hansen MCHC (RBC) [Mass/Vol] 31.6 g/dL Normal 29.9-35.2 [facility] Comment on above: Performed By: #### C BC ####[facility] Jnqokfdman97[address] [place] [address]Dr. Joo Hansen MCV (RBC) [Entitic vol] 81.1 fL Normal 81.0-99.0 [facility] Comment on above: Performed By: #### C BC ####[facility] Wmlnmuxnat74[address] [place], [place] [address]Dr. Joo Hansen MONO # 0.9 103/ul Critically high 0.3-0.8 [facility] Comment on above: Performed By: #### C BC ####[facility] Igonxenlkz[address] [place], [place] [address]Dr. Joo Hansen Monocytes/100 WBC (Bld) 6.6 % Normal 1.7-12.0 [facility] Comment on above: Performed By: #### C BC ####[facility] Tgqzgbmaus50[address] [place], [place] [address]Dr. Maria De Jesusfausto Hansen NEUT # 8.6 103/ul Critically high 1.4-6.5 [facility] Comment on above: Performed By: #### C BC ####[facility] Gishmpyrpg8[address] [place], [place] [address]Dr. Joo Hansen Neutrophils/100 WBC (Bld) 66.0 % Normal 43.0-75.0 [facility] Comment on above: Performed By: #### C BC ####[facility] Gukewaolij[address] [place], [place] [address]Dr. Joo Hansen Platelet mean volume (Bld) [Entitic vol] 9.1 fL Critically low 9.5-13.5 [facility] Comment on above: Performed By: #### C BC ####[facility] [address]scp[address] [place] [id number]. Joo Hansen PLT 377 103/ul Normal 150-450 [facility] Comment on above: Performed By: #### C BC ####[facility] Ndulzqcfff12[address] [place] [id number]. Joo Hansen RBC 4.33 106/ul Normal 4.20-5.40 [facility] Comment on above: Performed By: #### C BC ####[facility] Pbpcelhoxe[address] [place] [id number]. Joo Hansen WBC 13.0 103/ul Critically high 4.0-11.0 [facility] Comment on above: Performed By: #### C BC ####[facility] Wlfjullscq62[address] [place] [address]Dr. Joo Hansen GLYCOHEMOGLOBIN A1Con 2021 ADA RECOMMENDATION SEE BELOW Normal [facility] Comment on above: Result Comment: ADA RECOMMENDED LIMIT 4.0 - 6.0 ADA THERAPEUTIC TARGET < 7.0 ACTION SUGGESTED > 7.0 Performed By: #### A 1C ####[facility] [address]rsytzyuoe[address] [place] [address]Dr. Joo Hansen Glucose [Mass/Vol] 295 mg/dL Normal [facility] Comment on above: Performed By: #### A 1C ####[facility] Gfc[address]zpzksk[address] [place] [id number]. Joo Hansen HbA1c (Bld) [Mass fraction] 11.9 % Critically high 4.5-6.2 [facility] Comment on above: Performed By: #### A 1C ####[facility] Rwrxuzprks37[address] [place] [id number]. Joo Hansen PROF 14(COMP METB)on 022 Albumin [Mass/Vol] 3.7 g/dL Normal 3.4-5.0 [facility] Comment on above: Performed By: #### C MP ####[facility] Lfakuqkurr93[address] [place] [address]Dr. Joo Hansen Albumin/Globulin [Mass ratio] 1.2 {ratio} Normal [facility] Comment on above: Performed By: #### C MP ####[facility] Ggelggqvab8[address] [place] [address]Dr. Joo Hansen ALP [Catalytic activity/Vol] 110 U/L Normal 46-116 [facility] Comment on above: Performed By: #### C MP ####[facility] Iacjrwcggn1554 [place] [address]Dr. Joo Hansen ALT [Catalytic activity/Vol] 31 U/L Normal 14-59 [facility] Comment on above: Performed By: #### C MP ####[facility] Epnyqvveuc2933 [place] [address]Dr. Joo Hansen Anion gap [Moles/Vol] 13.7 mmol/L Normal [facility] Comment on above: Performed By: #### C MP ####[facility] Wlaxgdklts[address] [place], [place] [address]Dr. Joo Hansen AST [Catalytic activity/Vol] 10 U/L Critically low 15-37 [facility] Comment on above: Performed By: #### C MP ####[facility] Uqmwvepbwc[address]39[address] [place], [place] [address]Dr. Joo Hansen Bilirubin [Mass/Vol] 0.4 mg/dL Normal 0.2-1.0 [facility] Comment on above: Performed By: #### C MP ####[facility] Ezsakquokd423[address] [place], [place] [address]Dr. Joo Hansen Calcium [Mass/Vol] 8.8 mg/dL Normal 8.5-10.1 [facility] Comment on above: Performed By: #### C MP ####[facility] Ogqlamjraj45[address] [place], [place] [address]Dr. Joo Hansen Chloride [Moles/Vol] 101 mmol/L Normal 98-107 [facility] Comment on above: Performed By: #### C MP ####[facility] Enonweodxg9199[address] [place], [place] [address]Dr. Joo Hansen CO2 [Moles/Vol] 25.1 mmol/L Normal 21.0-32.0 [facility] Comment on above: Performed By: #### C MP ####[facility] Qwzzrourls549[address] [place] [address]Dr. Joo Hansen Creatinine [Mass/Vol] 0.72 mg/dL Normal 0.55-1.02 [facility] Comment on above: Performed By: #### C MP ####[facility] Drgwbbvtcb2036 [place] [address]Dr. Joo Hansen EGFR-AF MOSOTHO >60 Normal >=60 [facility] Comment on above: Performed By: #### C MP ####[facility] Lpnfdptfkm0417 [place] [address]Dr. Joo Hansen EGFR-NON AF MOSOTHO >60 Normal >=60 [facility] Comment on above: Performed By: #### C MP ####[facility] Rjlwqgriie[address] [place], [place] [address]Dr. Joo Hansen Globulin (S) [Mass/Vol] 3.0 g/dL Normal [facility] Comment on above: Performed By: #### C MP ####[facility] Rtayuubyif[address] [place], [place] [address]Dr. Joo Hansen Glucose [Mass/Vol] 338 mg/dL Critically high 74-106 [facility] Comment on above: Performed By: #### C MP ####[facility] Ldwnrzvdug4[address] [place], [place] [address]Dr. Joo Hansen Potassium [Moles/Vol] 3.8 mmol/L Normal 3.5-5.1 [facility] Comment on above: Performed By: #### C MP ####[facility] Uaapqluozy96[address] [place], [place] [address]Dr. Joo Hansen Protein [Mass/Vol] 6.7 g/dL Normal 6.4-8.2 [facility] Comment on above: Performed By: #### C MP ####[facility] Edziwyuobe39[address] [place], [place] [address]Dr. Joo Hansen Sodium [Moles/Vol] 136 mmol/L Normal 136-145 [facility] Comment on above: Performed By: #### C MP ####[facility] Aljiwutmxt[address] [place], [place] [address]Dr. Joo Hansen Urea nitrogen [Mass/Vol] 10.0 mg/dL Normal 7.0-18.0 [facility] Comment on above: Performed By: #### C MP ####[facility] Fogymesema[address] [place] [address]Dr. Joo Hansen Urea nitrogen/Creatinine [Mass ratio] 13.9 mg/mg Normal [facility] Comment on above: Performed By: #### C MP ####[facility] Cfbahhilri98[address] [place] [address]Dr. Joo Hansen XR CHEST 2 Von 05-11-2022 XR CHEST 2 V Normal [facility] MG MAMM SCREEN 3D DALLIN CADon 02-06-2022 MG MAMM SCREEN 3D DALLIN CAD Normal [facility] XR CHEST 2 Von 01-28-2022 XR CHEST 2 V Normal [facility] GLYCOHEMOGLOBIN A1Con 2021 ADA RECOMMENDATION SEE BELOW Normal [facility] Comment on above: Result Comment: ADA RECOMMENDED LIMIT 4.0 - 6.0 ADA THERAPEUTIC TARGET < 7.0 ACTION SUGGESTED > 7.0 Performed By: #### A 1C ####[facility] J[address]jcpvui[address] [place] [address]Dr. Joo Hansen Glucose [Mass/Vol] 283 mg/dL Normal [facility] Comment on above: Performed By: #### A 1C ####[facility] Uylymgbeqc2[address] [place] [address]Dr. Joo Hansen HbA1c (Bld) [Mass fraction] 11.5 % Critically high 4.5-6.2 [facility] Comment on above: Performed By: #### A 1C ####[facility] Pwbzfjcdgj98[address] [place] [address]Dr. Joo Hansen PROF 14(COMP METB)on 022 Albumin [Mass/Vol] 3.5 g/dL Normal 3.4-5.0 [facility] Comment on above: Performed By: #### C MP ####[facility] Rdgqwhbnkr0918 [place] [address]Dr. Joo Hansen Albumin/Globulin [Mass ratio] 1.1 {ratio} Normal [facility] Comment on above: Performed By: #### C MP ####[facility] Rsnsinwpav0571 [place] [address]Dr. Joo Hansen ALP [Catalytic activity/Vol] 117 U/L Critically high 46-116 [facility] Comment on above: Performed By: #### C MP ####[facility] Hdqatnwaxo4168 [place] [address]Dr. Joo Hansen ALT [Catalytic activity/Vol] 24 U/L Normal 14-59 [facility] Comment on above: Performed By: #### C MP ####[facility] Uurxwekukr[address] [place] [address]Dr. Joo Tyrone Anion gap [Moles/Vol] 14.4 mmol/L Normal [facility] Comment on above: Performed By: #### C MP ####[facility] Kcczxxdkil[address] [place], [place] [address]Dr. Joo Tyrone AST [Catalytic activity/Vol] 10 U/L Critically low 15-37 [facility] Comment on above: Performed By: #### C MP ####[facility] [address] [place], [place] [address]Dr. Joo Tyrone Bilirubin [Mass/Vol] 0.4 mg/dL Normal 0.2-1.0 [facility] Comment on above: Performed By: #### C MP ####[facility] [address] [place], [place] [address]Dr. Joo Tyrone Calcium [Mass/Vol] 9.2 mg/dL Normal 8.5-10.1 [facility] Comment on above: Performed By: #### C MP ####[facility] [address] [place] [address]Dr. Joo Hansen Chloride [Moles/Vol] 101 mmol/L Normal 98-107 [facility] Comment on above: Performed By: #### C MP ####[facility] [address] [place] [address]Dr. Joo Hansen CO2 [Moles/Vol] 25.6 mmol/L Normal 21.0-32.0 [facility] Comment on above: Performed By: #### C MP ####[facility] [address]dcvsl[address] [place] [id number]. Joo Hansen Creatinine [Mass/Vol] 0.57 mg/dL Normal 0.55-1.02 [facility] Comment on above: Performed By: #### C MP ####[facility] [address]rjvmnjdj[address] [place] [id number]. Joo Hansen EGFR-AF MOSOTHO >60 Normal >=60 [facility] Comment on above: Performed By: #### C MP ####[facility] [address] [place] [id number]. Joo Hansen EGFR-NON AF MOSOTHO >60 Normal >=60 [facility] Comment on above: Performed By: #### C MP ####[facility] [address] [place] [address]Dr. Joo Hansen Globulin (S) [Mass/Vol] 3.1 g/dL Normal [facility] Comment on above: Performed By: #### C MP ####[facility] [address] [place] [address]Dr. Joo Hansen Glucose [Mass/Vol] 236 mg/dL Critically high 74-106 [facility] Comment on above: Performed By: #### C MP ####[facility] Vq[address] [place] [id number]. Joo Hansen Potassium [Moles/Vol] 4.0 mmol/L Normal 3.5-5.1 [facility] Comment on above: Performed By: #### C MP ####[facility] [address]um[address] [place] [id number]. Joo Hansen Protein [Mass/Vol] 6.6 g/dL Normal 6.4-8.2 [facility] Comment on above: Performed By: #### C MP ####[facility] [address] [place] [address]Dr. Joo Hansen Sodium [Moles/Vol] 137 mmol/L Normal 136-145 [facility] Comment on above: Performed By: #### C MP ####[facility] [address] [place], [place] [address]So. Joo Hansen Urea nitrogen [Mass/Vol] 10.0 mg/dL Normal 7.0-18.0 [facility] Comment on above: Performed By: #### C MP ####[facility] [address] [place], [place] [address]Db. Joo Hansen Urea nitrogen/Creatinine [Mass ratio] 17.5 mg/mg Normal [facility] Comment on above: Performed By: #### C MP ####[facility] [address]tr[address] [place], [place] [address]Ha. Joo Hansen [facility] 15 mm/hr Normal <=30 [facility] Comment on above: Performed By: #### S EDR ####[facility] [address] [place], [place] [address]Wf. Joo Hansen Cardiovascular Lab Reporton 03-03-2019 Cardiovascular Lab Report [facility]: [id number] Department of Physician: Ac Gomes M.D. Division of Service Date: 03/02/2019 Cardiology Birthdate: 1955 Adult Cardiovascular Room #: [address] [place] [address] Cardiovascular Laboratory Report INDICATION: The patient is a 64-year-old woman known to have coronary artery disease, status post stenting procedure in the past. She was evaluated recently in Cardiology Clinic because of symptoms of chest pain and stress test showed evidence of inferior and inferoseptal julio-infarct ischemia. She was referred for cardiac catheterization. PROCEDURE: Bilateral selective coronary angiography from the right radial access. METHODS: The procedure was explained to the patient with risks and benefits. She signed informed consent. 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 The right wrist area was prepped and draped in usual fashion. Devendra's test was favorable. Access on the right radial artery was obtained using micropuncture technique and a 6-Lithuanian x 11 cm Hydrophilic sheath was advanced. Verapamil was given through the sheath and heparin was administered intravenously. Bilateral selective coronary angiography was then performed using 6-Lithuanian JR5 and JL3.5 diagnostic catheters. Catheters were removed. Procedure was concluded. The access sheath was removed and a TR band applied for hemostasis. She tolerated the procedure well. She will be observed in the cardiovascular recovery area for 3 hours and then discharged to home. TOTAL FLUORO TIME: 5.31 minutes. TOTAL AIR KERMA: 310 mGy. TOTAL CONTRAST VOLUME: 40 mL. HEMODYNAMICS: AO 139/66, mean 91. CORONARY ANGIOGRAPHY: 1. This is a right dominant circulation. 2. Left main: This arises from left coronary cusp. It bifurcates into left anterior descending and circumflex vessels. Left main is free of disease. 3. Left anterior descending. This has mild disease. 4. Circumflex vessel: This is a small and nondominant vessel. It has mild disease. 5. Right coronary artery. This arises from the right coronary cusp. It is a large and dominant vessel. It has a 40% mid segment stenosis and a distal segment previously placed stent which is widely patent. More distally, it bifurcates into PDA and PLV branches. The PDA has a 50% ostial to proximal disease. The caliber of the PDA is small. SUMMARY OF THE FINDINGS: Coronary artery disease with patent previously placed distal RCA stent, 40% proximal RCA stenosis, and 50% ostial to proximal PDA stenosis (small to moderate-size vessel), and mild disease in the left coronary system. RECOMMENDATIONS: 1. It is recommended to manage this patient medically at this time. 2. Follow up in Cardiology Clinic. Electronically Signed by: Ac Gomes M.D. 03/13/2019 12:00 A Ac Gomes M.D. Date Dict: 03/02/2019/02:30 P/Ac Gomes M.D. Date Trans: 03/02/2019 11:33 P/marcio [id number] cc: Karl Montes M.D. [address] [place] [id number] [facility] BASIC METABOLIC PANELon 02-13 Calcium [Mass/Vol] 10.1 mg/dL Normal 8.6-10.3 [facility] Comment on above: Performed By: #### 0 0071, 56918, 66593 #### [facility] [address] [place] [address], [place] Chloride [Moles/Vol] 101 mmol/L Normal 98-107 [facility] Comment on above: Performed By: #### 0 0071, 92195, 01645 #### [facility] [address] [place] [address], [place] CO2 [Moles/Vol] 27 mmol/L Normal 21-31 [facility] Comment on above: Performed By: #### 0 0071, 60782, 70982 #### [facility] [address] [place] [address], [place] Creatinine [Mass/Vol] 0.63 mg/dL Normal 0.60-1.20 [facility] Comment on above: Performed By: #### 0 0071, 39776, 57326 #### [facility] [address] [place] [address], [place] GFR/1.73 sq M predicted among blacks MDRD (S/P/Bld) [Vol rate/Area] mL/min/{1.73_m2} Normal >60 [facility] Comment on above: Performed By: #### 0 0071, 14535, 65415 #### [facility] [address] [place] [address], [place] GFR/1.73 sq M predicted among non-blacks MDRD (S/P/Bld) [Vol rate/Area] mL/min/{1.73_m2} Normal >60 [facility] Comment on above: Performed By: #### 0 0071, 22121, 24054 #### [facility] [address] [place] [address], [place] Glucose [Mass/Vol] 260 mg/dL High 70-100 [facility] Comment on above: Performed By: #### 0 0071, 93730, 30579 #### [facility] [address] [place] [id number], [facility] Potassium [Moles/Vol] 3.9 mmol/L Normal 3.5-5.1 [facility] Comment on above: Performed By: #### 0 0071, 84924, 22655 #### [facility] [address] [place] [address], [facility] Sodium [Moles/Vol] 136 mmol/L Normal 136-145 [facility] Comment on above: Performed By: #### 0 0071, 41003, 75281 #### [facility] [address] [place] [address], [facility] Urea nitrogen [Mass/Vol] 10 mg/dL Normal 7-25 [facility] Comment on above: Performed By: #### 0 0071, 88091, 83601 #### [facility] [address] [place] [address], [facility] CBC COMPLETE BLOOD COUNTon 0 - Erythrocyte distribution width (RBC) [Ratio] 13.2 % Normal 11.5-15.0 [facility] Comment on above: Performed By: #### 0 0071, 65468, 94925 #### [facility] [address] [place] [address], [facility] Hematocrit (Bld) [Volume fraction] 40.4 % Normal 36.0-45.0 [facility] Comment on above: Performed By: #### 0 0071, 10593, 58984 #### [facility] [address] [place] [address], [facility] Hemoglobin (Bld) [Mass/Vol] 13.6 g/dL Normal 12.0-15.0 [facility] Comment on above: Performed By: #### 0 0071, 14276, 89132 #### [facility] [address] [place] [address], [facility] MCH (RBC) [Entitic mass] 27.4 pg Normal 27.0-33.0 [facility] Comment on above: Performed By: #### 0 70, 47257, 47468 #### [facility] [address] [facility] [place] [place] [address], [facility] MCHC (RBC) [Mass/Vol] 33.7 g/dL Normal 32.0-35.0 [facility] Comment on above: Performed By: #### 0 70, , 46354 #### [facility] [address] [facility] [place] [address], [facility] MCV (RBC) [Entitic vol] 81.3 fL Low 82.0-98.0 [facility] Comment on above: Performed By: #### 0 70, , 71809 #### [facility] [address] [facility]. [address] Nucleated RBC/100 WBC (Bld) [Ratio] 0 % Normal 0-0 [facility] Comment on above: Performed By: #### 0 70, , 95987 #### [facility] [address] [facility] [place] [place] [address], [facility] PLAT CNT 436 10*3/uL High 150-400 [facility] Comment on above: Performed By: #### 0 70, , 88597 #### [facility] [address] [facility]. [place] [id number], [facility] RBC (Bld) [#/Vol] 4.97 10*6/uL Normal 3.80-5.00 [facility] Comment on above: Performed By: #### 0 70, , 19556 #### [facility] [address] [facility] [place] [place] [address], [facility] WBC (Bld) [#/Vol] 10.74 10*3/uL High 4.00-10.60 [facility] Comment on above: Performed By: #### 0 0071, 43546, 45899 #### [facility] [address] [place] [address], [facility] HEMOGLOBIN A1Con 08-02-2018 HbA1c (Bld) [Mass fraction] 9.4 % High 4.0-6.0 [facility] Comment on above: Order Comment: Yes: Add to Previous draw if able Performed By: #### 0 0071, 57156, 06704 #### [facility] [address] [place] [address], [facility] HbA1c (Bld) [Mass fraction] 223 mg/dL High 70-126 [facility] Comment on above: Order Comment: Yes: Add to Previous draw if able Performed By: #### 0 0071, 25988, 39199 #### [facility] [address] [place] [address], [facility] POC GLUCOSE LABon 08-02-2018 Glucose [Mass/Vol] 278 mg/dL High 70-100 [facility] Comment on above: Performed By: #### 0 0071, 41687, 64426 #### [facility] [address] [place] [address], [place] Glucose [Mass/Vol] 175 mg/dL High 70-100 [facility] Comment on above: Performed By: #### 0 0071, 84480, 67420 #### [facility] [address] [place] [address], [place] Glucose [Mass/Vol] 245 mg/dL High 70-100 [facility] Comment on above: Performed By: #### 0 0071, 76550, 39777 #### [facility] [address] [place] [address], [place] BASIC METABOLIC PANELon 07-16 Calcium [Mass/Vol] 9.0 mg/dL Normal 8.6-10.3 [facility] Comment on above: Order Comment: No: D o not add to previous draw Performed By: #### 0 0071, 27263, 16710 #### [facility] [address] [place] [address], [place] Chloride [Moles/Vol] 101 mmol/L Normal 98-107 [facility] Comment on above: Order Comment: No: D o not add to previous draw Performed By: #### 0 0071, 18596, 93265 #### [facility] [address] [place] [address], [place] CO2 [Moles/Vol] 27 mmol/L Normal 21-31 [facility] Comment on above: Order Comment: No: D o not add to previous draw Performed By: #### 0 0071, 61128, 88674 #### [facility] [address] [place] [address], [place] Creatinine [Mass/Vol] 0.66 mg/dL Normal 0.60-1.20 [facility] Comment on above: Order Comment: No: D o not add to previous draw Performed By: #### 0 0071, 12550, 44642 #### [facility] [address] [place] [address], [place] GFR/1.73 sq M predicted among blacks MDRD (S/P/Bld) [Vol rate/Area] mL/min/{1.73_m2} Normal >60 [facility] Comment on above: Order Comment: No: D o not add to previous draw Performed By: #### 0 0071, 74112, 04414 #### [facility] [address] [place] [address], [place] GFR/1.73 sq M predicted among non-blacks MDRD (S/P/Bld) [Vol rate/Area] mL/min/{1.73_m2} Normal >60 [facility] Comment on above: Order Comment: No: D o not add to previous draw Performed By: #### 0 0071, 59279, 47479 #### [facility] [address] [place] [address], [place] Glucose [Mass/Vol] 266 mg/dL High 70-100 [facility] Comment on above: Order Comment: No: D o not add to previous draw Performed By: #### 0 0071, 21050, 85393 #### [facility] [address] [place] [address], [place] Potassium [Moles/Vol] 3.6 mmol/L Normal 3.5-5.1 [facility] Comment on above: Order Comment: No: D o not add to previous draw Performed By: #### 0 0071, 64731, 48066 #### [facility] [address] [place] [address], [place] Sodium [Moles/Vol] 133 mmol/L Low 136-145 [facility] Comment on above: Order Comment: No: D o not add to previous draw Performed By: #### 0 0071, 09483, 63623 #### [facility] [address] [place] [address], [facility] Urea nitrogen [Mass/Vol] 11 mg/dL Normal 7-25 [facility] Comment on above: Order Comment: No: D o not add to previous draw Performed By: #### 0 0071, 22872, 14519 #### [facility] [address] [place] [address], [facility] CBC COMPLETE BLOOD COUNTon 1 10-02-2017 Erythrocyte distribution width (RBC) [Ratio] 12.1 % Normal 11.5-15.0 [facility] Comment on above: Order Comment: No: D o not add to previous draw Performed By: #### 0 0071, 83706, 29294 #### [facility] [address] [place] [address], [place] Hematocrit (Bld) [Volume fraction] 38.6 % Normal 36.0-45.0 [facility] Comment on above: Order Comment: No: D o not add to previous draw Performed By: #### 0 0071, 85113, 53980 #### [facility] [address] [place] [address], [facility] Hemoglobin (Bld) [Mass/Vol] 13.4 g/dL Normal 12.0-15.0 [facility] Comment on above: Order Comment: No: D o not add to previous draw Performed By: #### 0 007, , 87381 #### [facility] [address] [place] [address], [facility] MCH (RBC) [Entitic mass] 29.1 pg Normal 27.0-33.0 [facility] Comment on above: Order Comment: No: D o not add to previous draw Performed By: #### 0 70, 22593, 01058 #### [facility] [address] [place] [id number], [facility] MCHC (RBC) [Mass/Vol] 34.7 g/dL Normal 32.0-35.0 [facility] Comment on above: Order Comment: No: D o not add to previous draw Performed By: #### 0 70, , 76195 #### [facility] [address] [place] [address], [facility] MCV (RBC) [Entitic vol] 83.7 fL Normal 82.0-98.0 [facility] Comment on above: Order Comment: No: D o not add to previous draw Performed By: #### 0 007, , 43280 #### [facility] [address] [place] [id number], [facility] Nucleated RBC/100 WBC (Bld) [Ratio] 0 % Normal 0-0 [facility] Comment on above: Order Comment: No: D o not add to previous draw Performed By: #### 0 007, , 82498 #### [facility] [address] [place] [address], [facility] PLAT CNT 331 10*3/uL Normal 150-400 [facility] Comment on above: Order Comment: No: D o not add to previous draw Performed By: #### 0 0071, 32303, 26116 #### [facility] [address] RBC (Bld) [#/Vol] 4.61 10*6/uL Normal 3.80-5.00 [facility] Comment on above: Order Comment: No: D o not add to previous draw Performed By: #### 0 0071, 93834, 90755 #### [facility] [address] [facility] [place] [address], [facility] WBC (Bld) [#/Vol] 9.50 10*3/uL Normal 4.00-10.60 [facility] Comment on above: Order Comment: No: D o not add to previous draw Performed By: #### 0 0071, 04181, 37576 #### [facility] [address] [facility] [address] Cardiovascular Lab Reporton 08-01-2018 Cardiovascular Lab Report [facility] Patient Name: Torres [facility] Negin MR #: [id number] Department of Physician: Heraclio Eden M.D. Division of Service Date: 07/31/2018 Cardiology Birthdate: 1955 Adult Cardiovascular Room #: 3AB [id number] [facility] [address] [place] [address] Cardiovascular Laboratory Report FINAL IMPRESSION: 1. Successful percutaneous intervention of high-grade sequential 99% lesions in the mid right coronary artery to 0 using a 3.5 x 28 Synergy stent. 2. Mild plaque disease in the left anterior descending and the circumflex coronary artery. INDICATION: Johanna Macdonald is a 63-year-old female, who was admitted with an acute bih-BT-brtfkcyod myocardial infarction. She was treated with medical therapy including heparin and nitroglycerin infusion. She continued to have chest pain despite nitroglycerin infusion at 30 mcg per kg per minute. She was thus considered for an urgent heart catheterization. PROCEDURES: 1. Coronary angiography. 2. Balloon angioplasty in the right coronary artery. 3. Drug-eluting stent placement in right coronary artery. 4. IC nitroglycerin. 5. Application of TR band. RECOMMENDATIONS: 1. Continue Plavix at least for a year. Continue aspirin and other medical therapy for coronary artery disease. METHODS: After risks, benefits, and alternatives were explained, the patient was brought to catheterization in an urgent state. Consent was obtained. Access was obtained in the right radial artery and a 6-Lithuanian sheath was placed. 5-Lithuanian JL3.5 and 5-Lithuanian JL5 and 6-Lithuanian 3DRC catheter used for coronary angiography. After coronary angiography was performed, she was kept on table for intervention of the right coronary artery. Baseline angiography showed 2 high-grade calcified lesions in the distal right coronary artery. At this point of time, an AR1 guide was used to engage the right coronary ostium and a 0.014 Prowater wire was placed across the lesion in the distal right coronary artery. 2.5 x 15 noncompliant balloon was used to perform balloon angioplasty up to 16 atmospheres multiple times, and after that, we placed a 3.5 x 28 Synergy stent. This was postdilated with a 3.5 x 15 noncompliant balloon. Final angiography showed good stent result with no evidence of dissection or perforation. There were no complications during the procedure. The guiding catheter was taken out. Hemostasis was obtained via TR band. HEMODYNAMIC DATA: AO 110/55, mean is 78. TOTAL FLUORO TIME: 11.45 minutes. AIR KERMA: 1.4 Gy. TOTAL CONTRAST: 100 mL. CORONARY ANGIOGRAPHY: 1. Left main : This is angiographically normal. 2. LAD: This shows mild plaque disease in the mid LAD. The diagonal branch also shows minimal plaque disease. There were faint collaterals filling distal RCA from LAD. 3. Circumflex. This is small vessel and has mild plaque disease. 4. Right coronary artery. This is large and dominant. It had PAWEL-2 flow at baseline with 2 high-grade lesions in the distal right coronary artery. These were treated with a 3.5 x 28 Synergy stent postdilated with a 3.5 x 15 noncompliant balloon. Electronically Signed by: Wilbert Corado M.D. 08/19/2018 03:28 P Wilbert Corado M.D. Date Dict: 07/31/2018/10:14 Levi Corado M.D. Date Trans: 08/01/2018 05:58 A/marcio [id number] cc: Karl Montes M.D. [address] [place] [id number] Normal [facility] LIVER BATTERYon 08-01-2018 Albumin [Mass/Vol] 3.7 g/dL Normal 3.5-5.7 [facility] Comment on above: Performed By: #### 0 0071, 49677, 22676 #### [facility] [address] [place] [address], [facility] ALKALINE PHOSPH 79 IU/L Normal 34-104 [facility] Comment on above: Performed By: #### 0 0071, 70259, 57012 #### [facility] [address] [place] [address], [place] ALT [Catalytic activity/Vol] 15 U/L Normal 7-52 [facility] Comment on above: Performed By: #### 0 0071, 53124, 11588 #### [facility] [address] [place] [address], [place] AST [Catalytic activity/Vol] 14 U/L Normal 13-39 [facility] Comment on above: Performed By: #### 0 0071, 58766, 98289 #### [facility] [address] [place] [address], [place] Bilirubin [Mass/Vol] 0.3 mg/dL Normal 0.3-1.0 [facility] Comment on above: Performed By: #### 0 0071, 18514, 93607 #### [facility] [address] [place] [address], [facility] Bilirubin.direct [Mass/Vol] 0.1 mg/dL Normal 0.0-0.2 [facility] Comment on above: Performed By: #### 0 0071, 67583, 12631 #### [facility] [address] [place] [address], [facility] Protein [Mass/Vol] 5.7 g/dL Low 6.0-8.3 [facility] Comment on above: Performed By: #### 0 0071, 01732, 22218 #### [facility] [address] [place] [address], [facility] MAGNESIUM BLOODon 08-01-2018 Magnesium [Mass/Vol] 1.9 mg/dL Normal 1.9-2.7 [facility] Comment on above: Order Comment: No: D o not add to previous draw Performed By: #### 0 0071, 51317, 86630 #### [facility] [address] [place] [address], [facility] PHOSPHORUS BLOODon 8 Phosphate [Mass/Vol] 4.0 mg/dL Normal 2.5-5.0 [facility] Comment on above: Order Comment: No: D o not add to previous draw Performed By: #### 0 0071, 83871, 40617 #### [facility] [address] [place] [address], [facility] POC GLUCOSE LABon 08-01-2018 Glucose [Mass/Vol] 227 mg/dL High 70-100 [facility] Comment on above: Performed By: #### 0 0071, 77443, 07450 #### [facility] [address] [place] [address], [facility] Glucose [Mass/Vol] 226 mg/dL High 70-100 [facility] Comment on above: Performed By: #### 0 0071, 14556, 18276 #### [facility] [address] [place] [address], [facility] Glucose [Mass/Vol] 256 mg/dL High 70-100 [facility] Comment on above: Performed By: #### 8 5499 #### [facility] [address] [place] [address], [facility] Glucose [Mass/Vol] 155 mg/dL High 70-100 [facility] Comment on above: Performed By: #### 8 5499 #### [facility] [address] [place] [address], [facility] TROPONIN-Ion 08-01-2018 Troponin I.cardiac [Mass/Vol] 0.32 ng/mL Critically high 0.00-0.04 [facility] Comment on above: Order Comment: No: D o not add to previous draw Result Comment: M-DE EVIOUS CRITICAL RESULT REFERENCE RANGES: 0.00 - 0.04 ng/ml NORMAL 0.05 - 0.50 ng/ml INDETERMINATE > 0.50 ng/ml CONSISTENT WITH AN M.I. Performed By: #### 0 0071, 86786, 72397 #### [facility] [address] [place] [address], [facility] BASIC METABOLIC PANELon 07-16 Calcium [Mass/Vol] 9.2 mg/dL Normal 8.6-10.3 [facility] Comment on above: Order Comment: No: D o not add to previous draw Performed By: #### 0 0071, 13106, 52163 #### [facility] [address] [place] [address], [facility] Chloride [Moles/Vol] 103 mmol/L Normal 98-107 [facility] Comment on above: Order Comment: No: D o not add to previous draw Performed By: #### 0 0071, 28351, 83714 #### [facility] [address] [place] [address], [place] CO2 [Moles/Vol] 22 mmol/L Normal 21-31 [facility] Comment on above: Order Comment: No: D o not add to previous draw Performed By: #### 0 0071, 41314, 27484 #### [facility] [address] [place] [address], [place] Creatinine [Mass/Vol] 0.57 mg/dL Low 0.60-1.20 [facility] Comment on above: Order Comment: No: D o not add to previous draw Performed By: #### 0 0071, 76555, 31158 #### [facility] [address] [place] [address], [facility] GFR/1.73 sq M predicted among blacks MDRD (S/P/Bld) [Vol rate/Area] mL/min/{1.73_m2} Normal >60 [facility] Comment on above: Order Comment: No: D o not add to previous draw Performed By: #### 0 0071, , 06283 #### [facility] [address] [place] [address], [facility] GFR/1.73 sq M predicted among non-blacks MDRD (S/P/Bld) [Vol rate/Area] mL/min/{1.73_m2} Normal >60 [facility] Comment on above: Order Comment: No: D o not add to previous draw Performed By: #### 0 0071, , [id number] #### [facility] [address] [place] [address], [place] Glucose [Mass/Vol] 169 mg/dL High 70-100 [facility] Comment on above: Order Comment: No: D o not add to previous draw Performed By: #### 0 0071, 84031, 98056 #### [facility] [address] [place] [address], [place] Potassium [Moles/Vol] 3.8 mmol/L Normal 3.5-5.1 [facility] Comment on above: Order Comment: No: D o not add to previous draw Performed By: #### 0 0071, 84071, 44783 #### [facility] [address] [facility] [address] Sodium [Moles/Vol] 135 mmol/L Low 136-145 [facility] Comment on above: Order Comment: No: D o not add to previous draw Performed By: #### 0 0071, 58691, 97818 #### [facility] [address] [facility] [place] [place] [address], [facility] Urea nitrogen [Mass/Vol] 8 mg/dL Normal 7-25 [facility] Comment on above: Order Comment: No: D o not add to previous draw Performed By: #### 0 0071, 50115, 54224 #### [facility] [address] [facility] [place] [address], [facility] CBC W/DIFFon 07-31-2018 ABS BASOPHILS 0.1 10*3/uL Normal 0.0-0.2 [facility] Comment on above: Performed By: #### 5 0103 #### [facility] [address] [facility] [place] [address], [facility] ABS IMM GRANS 0.1 10*3/uL Normal 0.0-0.2 [facility] Comment on above: Performed By: #### 5 0103 #### [facility] [address] [facility]. [address] ABS NEUTROPHILS 4.7 10*3/uL Normal 1.6-7.6 [facility] Comment on above: Performed By: #### 5 0103 #### [facility] [address] [facility] [place] [address], [facility] Basophils/100 WBC (Bld) 1.2 % High 0.0-1.0 [facility] Comment on above: Performed By: #### 5 3 #### [facility] [address] [place] [address], [facility] Eosinophils (Bld) [#/Vol] 0.3 10*3/uL Normal 0.0-0.5 [facility] Comment on above: Performed By: #### 5 0103 #### [facility] [address] [place] [address], [facility] Eosinophils/100 WBC (Bld) 3.1 % Normal 0.0-6.0 [facility] Comment on above: Performed By: #### 5 0103 #### [facility] [address] [facility] [address] Erythrocyte distribution width (RBC) [Ratio] 12.2 % Normal 11.5-15.0 [facility] Comment on above: Performed By: #### 5 0103 #### [facility] [address] [facility] [place] [address], [facility] Hematocrit (Bld) [Volume fraction] 40.6 % Normal 36.0-45.0 [facility] Comment on above: Performed By: #### 5 3 #### [facility] [address] [facility]. [address] Hemoglobin (Bld) [Mass/Vol] 13.8 g/dL Normal 12.0-15.0 [facility] Comment on above: Performed By: #### 5 0103 #### [facility] [address] [facility] [place] [address], [facility] IMMATURE GRANS 0.7 % Normal 0.0-1.0 [facility] Comment on above: Performed By: #### 5 0103 #### [facility] [address] [facility] [place] [address], [facility] Lymphocytes (Bld) [#/Vol] 3.5 10*3/uL Normal 1.2-4.0 [facility] Comment on above: Performed By: #### 5 3 #### [facility] [address] [place] [address], [facility] Lymphocytes/100 WBC (Bld) 36.8 % Normal 20.0-45.0 [facility] Comment on above: Performed By: #### 5 0103 #### [facility] [address] [facility] [place] [address], [facility] MCH (RBC) [Entitic mass] 28.8 pg Normal 27.0-33.0 [facility] Comment on above: Performed By: #### 5 3 #### [facility] [address] [facility] [place] [address], [facility] MCHC (RBC) [Mass/Vol] 34.0 g/dL Normal 32.0-35.0 [facility] Comment on above: Performed By: #### 5 3 #### [facility] [address] [place] [address], [facility] MCV (RBC) [Entitic vol] 84.6 fL Normal 82.0-98.0 [facility] Comment on above: Performed By: #### 5 3 #### [facility] [address] [facility] [place] [address], [facility] Monocytes (Bld) [#/Vol] 0.7 10*3/uL Normal 0.1-1.0 [facility] Comment on above: Performed By: #### 5 102 #### [facility] [address] MONOS 7.9 % Normal 5.0-12.0 [facility] Comment on above: Performed By: #### 5 3 #### [facility] [address] [facility]. [address] Neutrophils/100 WBC (Bld) 50.3 % Normal 40.0-72.0 [facility] Comment on above: Performed By: #### 5 3 #### [facility] [address] [place] [address], [facility] Nucleated RBC/100 WBC (Bld) [Ratio] 0 % Normal 0-0 [facility] Comment on above: Performed By: #### 5 3 #### [facility] [address] [place] [address], [facility] PLAT CNT 317 10*3/uL Normal 150-400 [facility] Comment on above: Performed By: #### 5 0103 #### [facility] [address] [place] [address], [facility] RBC (Bld) [#/Vol] 4.80 10*6/uL Normal 3.80-5.00 [facility] Comment on above: Performed By: #### 5 0103 #### [facility] [address] [place] [address], [place] WBC (Bld) [#/Vol] 9.41 10*3/uL Normal 4.00-10.60 [facility] Comment on above: Performed By: #### 5 0103 #### [facility] [address] [place] [address], [facility] LIPID PROFILEon 07-31-2018 Cholesterol [Mass/Vol] 199 mg/dL Normal 120-200 [facility] Comment on above: Result Comment: CHOL ESTEROL REFERENCE RANGE: 20 YEARS AND OLDER CARDIOVASCULAR RISK Less than 200 mg/dl Low Risk 200 to 239 mg/dl Borderline Risk 240 mg/dl and greater High Risk Performed By: #### 0 0071, 22789, 14728 #### [facility] [address] [place] [address], [facility] Cholesterol in HDL [Mass/Vol] 30 mg/dL Normal 23-92 [facility] Comment on above: Result Comment: Slig ht variation in normal range could be due to gender and/or age. HDL CHOLESTEROL REFERENCE RANGE: 20 years and older Cardiovascular Risk > or =60 mg/dL Desirable 40 TO 59 mg/dL Low Risk <40 mg/dL High Risk Performed By: #### 0 0071, 82312, 35862 #### [facility] [address] [place] [address], [facility] Cholesterol in LDL [Mass/Vol] 138 mg/dL High 0-130 [facility] Comment on above: Result Comment: LDL IS A CALCULATION LDL IS ONLY VALID IF THE TRIG IS LESS THAN 400. Performed By: #### 0 0071, 45467, 06537 #### [facility] [address] Cholesterol.total/C holesterol in HDL [Mass ratio] 6.6 {ratio} High .0-4.5 [facility] Comment on above: Performed By: #### 0 0071, 33085, 95629 #### [facility] [address] NON-HDL CHOLESTEROL 169 mg/dL Normal [facility] Comment on above: Performed By: #### 0 0071, 16376, 92927 #### [facility] [address] Triglyceride [Mass/Vol] 156 mg/dL High 40-149 [facility] Comment on above: Result Comment: TRIG LYCERIDE REFERENCE RANGE: 20 YEARS AND OLDER CARDIOVASCULAR RISK LESS THAN 150 mg/dl LOW RISK 150 TO 199 mg/dl BORDERLINE RISK 200 mg/dl AND GREATER HIGH RISK Performed By: #### 0 0071, 23436, 67389 #### [facility] [address] [facility] VLDL CHOL 31 mg/dL Normal 0-40 [facility] Comment on above: Performed By: #### 0 0071, 19186, 99595 #### [facility] [address] POC GLUCOSE LABon 07-31-2018 Glucose [Mass/Vol] 149 mg/dL High 70-100 [facility] Comment on above: Performed By: #### 8 5499 #### [facility] [address] [facility] TROPONIN-Ion 07-31-2018 Troponin I.cardiac [Mass/Vol] 0.63 ng/mL Critically high 0.00-0.04 [facility] Comment on above: Order Comment: No: D o not add to previous draw Result Comment: M-DE EVIOUS CRITICAL RESULT REFERENCE RANGES: 0.00 - 0.04 ng/ml NORMAL 0.05 - 0.50 ng/ml INDETERMINATE > 0.50 ng/ml CONSISTENT WITH AN M.I. Performed By: #### 3 5200 #### [facility] [address] [place] [address], [facility] Troponin I.cardiac [Mass/Vol] 0.64 ng/mL Critically high 0.00-0.04 [facility] Comment on above: Order Comment: No: D o not add to previous draw Result Comment: M-DE EVIOUS CRITICAL RESULT REFERENCE RANGES: 0.00 - 0.04 ng/ml NORMAL 0.05 - 0.50 ng/ml INDETERMINATE > 0.50 ng/ml CONSISTENT WITH AN M.I. Performed By: #### 3 5200 #### [facility] [address] [facility] [place] [address], [facility] Troponin I.cardiac [Mass/Vol] 0.33 ng/mL Critically high 0.00-0.04 [facility] Comment on above: Result Comment: M-CR ITICAL RESULT(S) REVIEWED, CALLED TO AND READ BACK BY Magdiel Hernandez RN at 16:03 REFERENCE RANGES: 0.00 - 0.04 ng/ml NORMAL 0.05 - 0.50 ng/ml INDETERMINATE > 0.50 ng/ml CONSISTENT WITH AN M.I. Performed By: #### 0 0071, 57106, 06184 #### [facility] [address] UFH HEPARIN ASSAYon 07-31-20 18 UNFRACTIONATED HEPARIN 0.16 IU/mL Critically low 0.30-0.70 [facility] Comment on above: Result Comment: Simi roxaban and Apixaban will interfere with the anti Xa assay used to monitor UFH and LMWH. RESULTS CHECKED AND CALLED. ACCURATELY READ BACK BY REUBEN MILLER RN AT 21:57 Performed By: #### 3 0477 #### [facility] [address] [place] [address], [facility] Vital Signs Date Time Vital Sign Value Performing Clinician Norberto wiggins 12-29-2024 14:21-0400 Blood Pressure Location Kelly Cazares [facility] 12-29-2024 14:21-0400 Body temperature 97.52 [degF] Kelly Cazares [facility] 12-29-2024 14:21-0400 Diastolic blood pressure 76 mm[Hg] Kelly Cazares [facility] 12-29-2024 14:21-0400 Heart rate 72 /min Kelly Cazares [facility] 12-29-2024 14:21-0400 SaO2% (BldA) [Mass fraction] 95 % Kelly Cazares [facility] 12-29-2024 14:21-0400 Systolic blood pressure 126 mm[Hg] Kelly Cazares [facility] 12-19-2024 11:45-0400 SaO2% (BldA) [Mass fraction] 93 % Jazlyn Calderon [facility] 12-19-2024 11:45-0400 Heart rate 73 /min Jazlyn Calderon [facility] 12-19-2024 11:45-0400 Respiratory rate 17 /min Jazlyn Calderon [facility] 12-19-2024 11:45-0400 Diastolic blood pressure 67 mm[Hg] Jazlyn Calderon [facility] 12-19-2024 11:45-0400 Mean blood pressure 85 mm[Hg] Jazlyn Calderon [facility] 12-19-2024 11:45-0400 Systolic blood pressure 120 mm[Hg] Mohamad Mouchli [facility] 12-19-2024 11:35-0400 Diastolic blood pressure 75 mm[Hg] Mohamad Mouchli [facility] 12-19-2024 11:35-0400 Systolic blood pressure 131 mm[Hg] Mohamad Mouchli [facility] 12-19-2024 11:31-0400 SaO2% (BldA) [Mass fraction] 92 % Mohamad Mouchli [facility] 12-19-2024 11:31-0400 Respiratory rate 18 /min Mohamad Mouchli [facility] 12-19-2024 11:31-0400 Diastolic blood pressure 59 mm[Hg] Mohamad Mouchli [facility] 12-19-2024 11:31-0400 Systolic blood pressure 125 mm[Hg] Mohamad Mouchli [facility] 12-19-2024 11:31-0400 Body temperature 98.24 [degF] Mohamad Mouchli [facility] 12-19-2024 11:31-0400 Heart rate 74 /min Mohamad Mouchli [facility] 12-19-2024 11:31-0400 Mean blood pressure 81 mm[Hg] Mohamad Mouchli [facility] 12-19-2024 11:25-0400 Heart rate 79 /min Mohamad Mouchli [facility] 12-19-2024 11:25-0400 Respiratory rate 15 /min Mohamad Mouchli [facility] 12-19-2024 11:25-0400 SaO2% (BldA) [Mass fraction] 81 % Mohorianad Danielitouchli [facility] 12-19-2024 09:02-0400 Blood Pressure Location Mohamad Mouchli [facility] 12-19-2024 09:02-0400 Body temperature 98.06 [degF] Mohamad Mouchli [facility] 11-06-2024 14:03-0400 Body temperature 98.06 [degF] Mhd Al-Marrawi [facility] 11-06-2024 14:03-0400 Diastolic blood pressure 78 mm[Hg] Mhd Al-Marrawi [facility] 11-06-2024 14:03-0400 Heart rate 63 /min Mhd Al-Marrawi [facility] 11-06-2024 14:03-0400 Mean blood pressure 102 mm[Hg] Mhd Al-Marrawi [facility] 11-06-2024 14:03-0400 Respiratory rate 16 /min Mhd Al-Marrawi [facility] 11-06-2024 14:03-0400 SaO2% (BldA) [Mass fraction] 97 % Mhd Al-Marrawi [facility] 11-06-2024 14:03-0400 Systolic blood pressure 149 mm[Hg] Mhd Al-Marrawi [facility] 10-06-2024 14:56-0500 Body height 149.86 cm [facility] 10-06-2024 14:56-0500 Body mass index (BMI) [Ratio] 31.8 kg/m2 [facility] 10-06-2024 14:56-0500 Body temperature 97.8 [degF] [facility] 10-06-2024 14:56-0500 Body weight 71.66 kg [facility] 10-06-2024 14:56-0500 Diastolic blood pressure 65 mm[Hg] [facility] 10-06-2024 14:56-0500 Heart rate 77 /min [facility] 10-06-2024 14:56-0500 Respiratory rate 18 /min [facility] 10-06-2024 14:56-0500 SaO2% (BldA) [Mass fraction] 95 % [facility] 10-06-2024 14:56-0500 Systolic blood pressure 117 mm[Hg] [facility] 07-11-2024 14:29-0500 Body temperature 97.34 [degF] Mhd Al-Marrawi [facility] 07-11-2024 14:29-0500 Diastolic blood pressure 68 mm[Hg] d Al-Marrawi [facility] 07-11-2024 14:29-0500 Heart rate 69 /min d Al-Marrawi [facility] 07-11-2024 14:29-0500 Mean blood pressure 83 mm[Hg] d Al-Marrawi [facility] 07-11-2024 14:29-0500 Respiratory rate 16 /min Mhd Al-Marrawi [facility] 07-11-2024 14:29-0500 SaO2% (BldA) [Mass fraction] 97 % Mhd Al-Marrawi [facility] 07-11-2024 14:29-0500 Systolic blood pressure 114 mm[Hg] Mhd Al-Marrawi [facility] 05-16-2024 14:08-0400 Blood Pressure Location Mhd Al-Marrawi [facility] 05-16-2024 14:08-0400 Body temperature 98.24 [degF] Mhd Al-Marrawi [facility] 05-16-2024 14:08-0400 Diastolic blood pressure 63 mm[Hg] Mhd Al-Marrawi [facility] 05-16-2024 14:08-0400 Heart rate 75 /min Mhd Al-Marrawi [facility] 05-16-2024 14:08-0400 Mean blood pressure 82 mm[Hg] Mhd Al-Marrawi [facility] 05-16-2024 14:08-0400 Respiratory rate 14 /min d Al-Marrawi [facility] 05-16-2024 14:08-0400 SaO2% (BldA) [Mass fraction] 95 % Mhd Al-Marrawi [facility] 05-16-2024 14:08-0400 Systolic blood pressure 119 mm[Hg] Mhd Al-Marrawi [facility] 04-21-2024 10:19-0400 Body height 149.9 cm María Guzman APRN.[employer] ME[employer] Work Phone: [facility] 04-21-2024 10:19-0400 Body mass index (BMI) [Ratio] 34.34 kg/m2 María Guzman APRN.[employer] MECHANIC Work Phone: [facility] 04-21-2024 10:19-0400 Body temperature 98.1 [degF] María Guzman APRN.J[employer] MECHANIC Work Phone: [facility] 04-21-2024 10:19-0400 Body weight 77.11 kg María Guzman APRN.[employer] MECHANIC Work Phone: [facility] 09-06-2024 10:19-0400 Diastolic blood pressure 52 mm[Hg] María Guzman SUPERVISOR SHIPPING ROOM.J[employer] MECH[employer]IC Work Phone: [facility] 04-21-2024 10:19-0400 Heart rate 77 /min María Guzman SUPERVISOR SHIPPING ROOM.[employer] MECH[employer]IC Work Phone: [facility] 04-21-2024 10:19-0400 Systolic blood pressure 143 mm[Hg] María Guzman SUPERVISOR SHIPPING ROOM.J[employer] MECHANIC Work Phone: [facility] 04-11-2024 04:11-0400 SaO2% (BldA) [Mass fraction] 98 % JUJU OROURKE [facility] Comment on above: Order Comment: Specimen Type: ARTERIAL B LOOD SPECIMEN Ordering Facility: [facility] Address: [address] [place] [address] Performed By: #### A LLBG #### [facility] CLIA [id number] [address] [place] [address] 04-10-2024 05:13-0400 SaO2% (BldA) [Mass fraction] 99 % JUJU OROURKE [facility] Comment on above: Order Comment: Specimen Type: ARTERIAL B LOOD SPECIMEN Ordering Facility: [facility] Address: [address] [place] [address] Performed By: #### A LLBG #### [facility] CLIA [id number] [address] [place] [address] [facility] 04-09-2024 14:57-0400 SaO2% (BldA) [Mass fraction] 94 % JUJU OROURKE [facility] Comment on above: Order Comment: Specimen Type: BLOOD SPEC IMEN Ordering Facility: [facility] Address: [address] [place] [address] Performed By: #### 1 9123-9, HSTNT, 2777-1, 46276-7, 91057-5 #### [facility] CLIA [id number] [address] [place] [address] [place] 04-09-2024 11:57-0400 SaO2% (BldA) [Mass fraction] 91 % JUJU OROURKE [facility] Comment on above: Order Comment: Specimen Type: ARTERIAL B LOOD SPECIMENOrdering Facility: [facility] Address: [address] [place] [id number] Performed By: #### A LLBG ####[facility] [id number] [address] [place] [address] [place] 04-03-2024 10:12-0400 Blood Pressure Location Mhd Al-Marrawi [facility] 04-03-2024 10:12-0400 Body temperature 98.06 [degF] Mhd Al-Marrawi [facility] 04-03-2024 10:12-0400 Diastolic blood pressure 60 mm[Hg] Mhd Al-Marrawi [facility] 04-03-2024 10:12-0400 Heart rate 67 /min Mhd Al-Marrawi [facility] 04-03-2024 10:12-0400 Mean blood pressure 83 mm[Hg] Mhd Al-Marrawi [facility] 04-03-2024 10:12-0400 Respiratory rate 16 /min Mhd Al-Marrawi [facility] 04-03-2024 10:12-0400 SaO2% (BldA) [Mass fraction] 99 % Mhd Al-Marrawi [facility] 04-03-2024 10:12-0400 Systolic blood pressure 130 mm[Hg] Mhd Al-Marrawi [facility] 03-28-2024 14:31-0400 Body temperature 98.24 [degF] Mhd Al-Marrawi [facility] 03-28-2024 14:31-0400 Diastolic blood pressure 57 mm[Hg] d Al-Marrawi [facility] 03-28-2024 14:31-0400 Heart rate 78 /min d Al-Marrawi [facility] 03-28-2024 14:31-0400 Mean blood pressure 78 mm[Hg] d Al-Marrawi [facility] 03-28-2024 14:31-0400 Respiratory rate 16 /min d Al-Marrawi [facility] 03-28-2024 14:31-0400 SaO2% (BldA) [Mass fraction] 96 % d Al-Marrawi [facility] 03-28-2024 14:31-0400 Systolic blood pressure 121 mm[Hg] [facility] Al-Marrawi [facility] 03-21-2024 13:23-0400 Diastolic blood pressure 51 mm[Hg] Pacc 4 Work Phone: [facility] 03-21-2024 13:23-0400 Systolic blood pressure 144 mm[Hg] Pacc 4 Work Phone: [facility] 03-21-2024 12:10-0400 Body height 149.9 cm Pacc 4 Work Phone: [facility] 03-21-2024 12:10-0400 Body mass index (BMI) [Ratio] 32.51 kg/m2 Pacc 4 Work Phone: [facility] 03-21-2024 12:10-0400 Body temperature 98.01 [degF] Pacc 4 Work Phone: [facility] 03-21-2024 12:10-0400 Body weight 73 kg Pac 4 Work Phone: [facility] 03-21-2024 12:10-0400 Heart rate 71 /min Pacc 4 Work Phone: [facility] 03-21-2024 12:10-0400 SaO2% (BldA) [Mass fraction] 96 % Pac 4 Work Phone: [facility] 02-28-2024 12:55-0400 Blood Pressure Location Mhd Al-Marrawi [facility] 02-28-2024 12:55-0400 Body temperature 97.88 [degF] Mhd Al-Marrawi [facility] 02-28-2024 12:55-0400 Diastolic blood pressure 52 mm[Hg] [facility] [facility] 02-28-2024 12:55-0400 Heart rate 74 /min Mhd Al-Marrawi [facility] 02-28-2024 12:55-0400 Mean blood pressure 81 mm[Hg] Mhd Al-Marrawi [facility] 02-28-2024 12:55-0400 Respiratory rate 16 /min Mhd Al-Marrawi [facility] 02-28-2024 12:55-0400 SaO2% (BldA) [Mass fraction] 96 % Mhd Al-Marrawi [facility] 02-28-2024 12:55-0400 Systolic blood pressure 139 mm[Hg] Mhd Al-Marrawi [facility] 02-21-2024 10:57-0400 Body temperature 98.24 [degF] Mhd Al-Marrawi [facility] 02-21-2024 10:57-0400 Diastolic blood pressure 67 mm[Hg] Mhd Al-Marrawi [facility] 02-21-2024 10:57-0400 Heart rate 72 /min Mhd Al-Marrawi [facility] 02-21-2024 10:57-0400 Mean blood pressure 91 mm[Hg] d Al-Marrawi [facility] 02-21-2024 10:57-0400 Respiratory rate 16 /min Mhd Al-Marrawi [facility] 02-21-2024 10:57-0400 SaO2% (BldA) [Mass fraction] 98 % d Al-Marrawi [facility] 02-21-2024 10:57-0400 Systolic blood pressure 139 mm[Hg] d Al-Marrawi [facility] 02-16-2024 11:36-0400 Diastolic blood pressure 78 mm[Hg] Basem Martinez [facility] 02-16-2024 11:36-0400 [facility] 77 /[facility] 02-16-2024 11:36-0400 Respiratory rate 18 /min [facility] 02-16-2024 11:36-0400 SaO2% (BldA) [Mass fraction] 96 % [facility] 02-16-2024 11:36-0400 Systolic blood pressure 138 mm[Hg] Basem Martinez [facility] 02-14-2024 12:50-0400 Blood Pressure Location d Al-Marrawi [facility] 02-14-2024 12:50-0400 Body temperature 98.24 [degF] d Al-Marrawi [facility] 07-01-2024 12:50-0400 Diastolic blood pressure 52 mm[Hg] Mhd Al-Marrawi [facility] 02-14-2024 12:50-0400 Heart rate 85 /min Mhd Al-Marrawi [facility] 02-14-2024 12:50-0400 Mean blood pressure 77 mm[Hg] Mhd Al-Marrawi [facility] 02-14-2024 12:50-0400 Respiratory rate 16 /min Mhd Al-Marrawi [facility] 02-14-2024 12:50-0400 SaO2% (BldA) [Mass fraction] 98 % Mhd Al-Marrawi [facility] 02-14-2024 12:50-0400 Systolic blood pressure 126 mm[Hg] Mhd Al-Marrawi [facility] 01-25-2024 13:01-0400 Body temperature 98.24 [degF] Mhd Al-Marrawi [facility] 01-25-2024 13:01-0400 Diastolic blood pressure 65 mm[Hg] Mhd Al-Marrawi [facility] 01-25-2024 13:01-0400 Heart rate 71 /min Mhd Al-Marrawi [facility] 01-25-2024 13:01-0400 Mean blood pressure 83 mm[Hg] Mhd Al-Marrawi [facility] 01-25-2024 13:01-0400 Respiratory rate 16 /min Mhd Al-Marrawi [facility] 01-25-2024 13:01-0400 SaO2% (BldA) [Mass fraction] 97 % Mhd Al-Marrawi [facility] 01-25-2024 13:01-0400 Systolic blood pressure 119 mm[Hg] Mhd Marta [facility] 12-27-2023 14:36-0400 Body height 149.9 cm Juju Orourke MD Work Phone: [facility] 12-27-2023 14:36-0400 Body mass index (BMI) [Ratio] 31.1 kg/m2 Juju Orourke MD Work Phone: [facility] 12-27-2023 14:36-0400 Body temperature 97.81 [degF] Juju Orourke MD Work Phone: [facility] 12-27-2023 14:36-0400 Body weight 69.85 kg Juju Orourke MD Work Phone: [facility] 12-27-2023 14:36-0400 Diastolic blood pressure 45 mm[Hg] Juju Orourke MD Work Phone: [facility] Comment on above: patitents blood pressure may run low 12-27-2023 14:36-0400 Heart rate 74 /min Juju Orourke MD Work Phone: [facility] 12-27-2023 14:36-0400 Systolic blood pressure 121 mm[Hg] Juju Orourke MD Work Phone: [facility] Comment on above: patitents blood pressure may run low 10-06-2023 13:32-0500 Blood Pressure Location Juan Pablo CAT [facility] [place] 10-06-2023 13:32-0500 Diastolic blood pressure 62 mm[Hg] Juan Pablo CAT [facility] [place] 10-06-2023 13:32-0500 Heart rate 72 /min Juan Pablo CAT [facility] [place] 10-06-2023 13:32-0500 Respiratory rate 16 /min Juan Pablo CAT [facility] [place] 10-06-2023 13:32-0500 Systolic blood pressure 138 mm[Hg] Juan Pablo NILL [facility] [place] 04-15-2023 14:23-0400 Blood Pressure Location Petar Lubin son [facility] 04-15-2023 14:23-0400 Diastolic blood pressure 58 mm[Hg] Petar Izaguirreofferson [facility] 04-15-2023 14:23-0400 Heart rate 81 /min Petar Izaguirreofferson [facility] 04-15-2023 14:23-0400 SaO2% (BldA) [Mass fraction] 97 % Petar Acostaerson [facility] 04-15-2023 14:23-0400 Systolic blood pressure 122 mm[Hg] Petar Lubin son [facility] 04-05-2023 11:46-0400 Blood Pressure Location Basem Martinez [facility] 04-05-2023 11:46-0400 Diastolic blood pressure 70 mm[Hg] Basem Martinez [facility] 04-05-2023 11:46-0400 Heart rate 73 /min Basem Martinez [facility] 04-05-2023 11:46-0400 SaO2% (BldA) [Mass fraction] 97 % Basem Martinez [facility] 04-05-2023 11:46-0400 Systolic blood pressure 134 mm[Hg] Basem Martinez [facility] 02-08-2023 13:12-0400 Blood Pressure Location Basem Martinez [facility] 02-08-2023 13:12-0400 Diastolic blood pressure 67 mm[Hg] Basem Martinez [facility] 02-08-2023 13:12-0400 Heart rate 73 /min Baseprachi Martinez [facility] 02-08-2023 13:12-0400 SaO2% (BldA) [Mass fraction] 96 % Basem Martinez [facility] 02-08-2023 13:12-0400 Systolic blood pressure 116 mm[Hg] Baseprachi Martinez [facility] 07-06-2022 08:36-0500 Heart rate 74 /min Petar Walker DO Work Phone: [employer] 07-06-2022 08:36-0500 Respiratory rate 18 /min Petar Walker DO Work Phone: [facility] 07-06-2022 05:04-0500 Body temperature 98.2 [degF] Petar Walker DO Work Phone: [facility] 07-06-2022 05:04-0500 Diastolic blood pressure 51 mm[Hg] Petar Franciscovobrannon DO Work Phone: [facility] 07-06-2022 05:04-0500 SaO2% (BldA) [Mass fraction] 96 % Petar Walker DO Work Phone: [facility] 07-06-2022 05:04-0500 Systolic blood pressure 136 mm[Hg] Petar Walker DO Work Phone: [facility] 07-04-2022 15:23-0500 Body height 149.9 cm Petar Walker DO Work Phone: [facility] 07-04-2022 15:23-0500 Body mass index (BMI) [Ratio] 32.92 kg/m2 ePtar Walker DO Work Phone: [facility] 07-04-2022 15:23-0500 Body weight 73.94 kg Petar Walker DO Work Phone: [facility] Encounters Encounter Date Encounter Type Care Provider Facility Start: 02-19-2025 ambulatory Issac Conway Facility :[facility] Start: 01-16-2025 ambulatory Jazlyn Calderon Faci lity:[facility] Start: 12-29-2024 End: 12-29-2024 Patient encounter procedure Kelly Cazares [facility] Start: 12-19-2024 End: 12-19-2024 ambulatory Jazlyn Calderon Facility:[facility] Start: 12-19-2024 End: 12-19-2024 Patient encounter procedure Jazlyn Calderon [facility] Start: 12-06-2024 End: 12-06-2024 ambulatory Jazlyn Calderon Facility:[facility] Start: 12-05-2024 End: 12-05-2024 ambulatory Mhd Angelika MccormackHussein Facility:[facility] Start: 12-05-2024 End: 12-05-2024 [facility] Start: 11-20-2024 End: 11-20-2024 ambulatory Issac Conway Facility:[facility] Start: 11-20-2024 End: 11-20-2024 Patient encounter procedure Issac Conway [facility] Start: 11-15-2024 End: 11-15-2024 ambulatory [facility] Start: 11-13-2024 End: 11-14-2024 Patient encounter procedure Segundo Guillen [facility] Start: 11-13-2024 End: 11-14-2024 ambulatory Mhd Yaser AlMarrawi Facility:[facility] Start: 11-13-2024 End: 11-14-2024 Lab Drop off Mhd Yaser Al-Marrawi [facility] Start: 11-06-2024 End: 11-07-2024 ambulatory Mhd Yaser Al-Marrawi Facility:[facility] Start: 11-06-2024 End: 11-07-2024 Patient encounter procedure Mhd Yaser Al-Marrawi [facility] Start: 10-31-2024 End: 11-01-2024 ambulatory MD Issac Conway Facility:[facility] Start: 10-31-2024 End: 11-01-2024 Patient encounter procedure Mhd Yaser Al-Marrawi [facility] Start: 10-31-2024 End: 10-31-2024 ambulatory MD Issac Conway Facility:[facility] Start: 10-06-2024 End: 10-06-2024 ambulatory [facility] Work Phone: Start: 10-06-2024 End: 10-06-2024 Patient encounter procedure [facility] Work Phone: Start: 07-27-2024 End: 07-27-2024 ambulatory MD Issac Conway Facility: [facility] Start: 07-25-2024 End: 07-25-2024 ambulatory MD Issac Conway Facility: [facility] Start: 07-11-2024 End: 07-11-2024 ambulatory Mhd Yaser Al-Marramagui Facility:[facility] Start: 07-11-2024 End: 07-11-2024 Patient encounter procedure Mhd Yaser Al-Marrawi [facility] Start: 06-29-2024 End: 06-29-2024 ambulatory Issac Conway Facility: [facility] Start: 06-26-2024 End: 06-27-2024 Pre-admission assessment Mhd Angelika Loazno [facility] Start: 06-13-2024 End: 06-13-2024 ambulatory Mhd Angelika Lozano Facility:[facility] Start: 06-13-2024 End: 06-13-2024 Patient encounter procedure Sandid Angelika Lozano [facility] Start: 05-30-2024 End: 05-30-2024 ambulatory Issac Conway Facility:[facility] Start: 05-26-2024 ambulatory Issac Conway Facility :[facility] Start: 05-17-2024 End: 05-17-2024 ambulatory [facility] Start: 05-16-2024 End: 05-16-2024 ambulatory Mhd Angelika Lozano Facility:[facility] Start: 05-16-2024 End: 05-16-2024 Patient encounter procedure Sandid Angelika Lozano [facility] Start: 04-25-2024 End: 04-25-2024 ambulatory Issac Conway Facility:[facility] Start: 04-21-2024 End: 04-21-2024 ambulatory MARÍA GUZMAN Facility:[facility] Start: 04-21-2024 End: 04-21-2024 Patient encounter procedure María Guzman [employer] Work Phone: General Surgery Comment on above: Postoperative visit (Primary Dx) Start: 04-14-2024 End: 05-15-2024 ambulatory Issac Conway Facility:[id number] Start: 04-13-2024 End: 04-13-2024 Evaluation and management of inpatient ISSAC CONWAY Facility:[facility] Start: 04-07-2024 End: 04-13-2024 Evaluation and management of inpatient JUJU OROURKE Facility:[facility] Start: 04-03-2024 End: 04-03-2024 ambulatory Marianne Lozano Facility:[facility] Start: 04-03-2024 End: 04-03-2024 Patient encounter procedure Marianne Lozano [facility] Start: 03-28-2024 End: 03-28-2024 ambulatory MD Sandiyeni Angelika Lozano Facility:[facility] Start: 03-28-2024 End: 03-28-2024 Patient encounter procedure Marianne Lozano [facility] Start: 03-24-2024 Telephone encounter Tawnaa Hatfield PA-C Work Phone: Pre Anesthesia Comment on above: Request Outside [facility] Start: 03-21-2024 End: 03-21-2024 [facility] Start: 03-21-2024 Encounter for other preprocedural examination JUJU OROURKE [facility] Start: 03-21-2024 End: 03-21-2024 [facility]ulatory [facility] Start: 03-21-2024 End: 03-21-2024 Admission to establishment [facility] Work Phone: Pre Anesthesia Start: 03-21-2024 End: 03-21-2024 Anesthesia consultation [facility] Work Phone: Pre Anesthesia Comment on above: Preoperative examina tion (Primary Dx); Incisional hernia, without obstruction or gangrene; Type 2 diabetes mellitus without complication, without long-term current use of insulin (HCC); Chronic obstructive pulmonary disease, unspecified COPD type (HCC); Supplemental oxygen dependent; Coronary artery disease involving [place] coronary artery of [place] heart without angina pectoris; Primary hypertension; Hyperlipidemia, unspecified hyperlipidemia type; Congestive heart failure, unspecified HF chronicity, unspecified heart failure type (HCC); Gastroesophageal reflux disease without esophagitis Start: 03-21-2024 End: 03-21-2024 Preprocedural examination done [facility] 4 Work Phone: [facility] Work Phone: Start: 03-21-2024 End: 03-21-2024 ambulatory MARÍA BENY Facility:[facility] Start: 03-20-2024 ambulatory Issac Conway Facility :[facility] Start: 03-20-2024 End: 03-20-2024 ambulatory Mhd Yaser Al-Marrawi Facility:[facility] Start: 03-20-2024 End: 03-20-2024 Patient encounter procedure Mhd Yaser Al-Marrawi [facility] Start: 03-15-2024 End: 03-15-2024 ambulatory Linda ConnorDonald Martinez Facility:[facility] Start: 03-15-2024 End: 03-15-2024 Patient encounter procedure Linda Chungd [facility] Start: 02-28-2024 End: 02-28-2024 ambulatory Mhd Yaser Al-Marrawi Facility:[facility] Start: 02-28-2024 End: 02-28-2024 Patient encounter procedure Mhd Yaser Al-Marrawi [facility] Start: 02-21-2024 End: 02-21-2024 ambulatory Mhd Yaser Al-Marrawi Facility:[facility] Start: 02-21-2024 End: 02-21-2024 Patient encounter procedure Mhd Yaser Al-Marrawi [facility] Start: 02-16-2024 End: 02-16-2024 ambulatory XXXX NONE Facility:[facility] Start: 02-16-2024 End: 02-16-2024 Patient encounter procedure Linda Chungd [facility] Start: 02-15-2024 End: 02-15-2024 ambulatory Issac Conway Facility:[facility] Start: 02-15-2024 End: 02-15-2024 ambulatory Issac Conway Facility:[facility] Start: 02-14-2024 End: 02-14-2024 ambulatory Mhd Maryamser Easton-Hussein Facility:[facility] Start: 02-14-2024 End: 02-14-2024 Patient encounter procedure Mhd Yaser Al-Corneliaramagui [facility] Start: 01-27-2024 End: 01-27-2024 ambulatory Mhd Yaser Al-Corneliaramagui Facility:[facility] Start: 01-27-2024 End: 01-27-2024 Lab Drop off Mhd Yaser Al-Corneliaramagui [facility] Start: 01-25-2024 ambulatory MD Issac Conway Facility :[facility] Start: 01-25-2024 End: 01-25-2024 ambulatory Mhd Yaser Al-Corneliaramagui Facility:[facility] Start: 01-25-2024 End: 01-25-2024 Patient encounter procedure Mhd Angelika Al-Hussein [facility] Start: 12-29-2023 ambulatory Juju bone MD Work Phone: [facility] Comment on above: 24 Cure (Open Complex AWR 5 Hours [place] 2) Start: 12-29-2023 Preprocedural examination done Juju Orourke MD Work Phone: [facility] Start: 12-28-2023 End: 12-28-2023 Lab Drop off Issac Conway [facility] Start: 12-28-2023 End: 12-28-2023 ambulatory Issac Conway Facility:[facility] Start: 12-27-2023 End: 12-27-2023 Patient encounter procedure Juju Orourke MD Work Phone: General Surgery Comment on above: Incisional hernia, w ithout obstruction or gangrene (Primary Dx) Start: 12-27-2023 End: 12-27-2023 ambulatory KARL MONTES Facility:[facility] Start: 11-30-2023 End: 11-30-2023 ambulatory Issac Conway Facility:[facility] Start: 10-20-2023 End: 10-20-2023 Lab Drop off Issac Conway [facility] Start: 10-20-2023 End: 10-20-2023 ambulatory Issac Conway Facility:[facility] Start: 10-06-2023 End: 10-06-2023 ambulatory Juan Pablo CAT Facility:[facility] Start: 10-06-2023 End: 10-06-2023 Patient encounter procedure Juan Pablo CAT General Surgery [facility] Start: 10-01-2023 ambulatory Issac Conway Facility: [facility] Start: 09-27-2023 End: 09-27-2023 ambulatory Issac Conway Facility:[facility] Start: 09-27-2023 End: 09-27-2023 Patient encounter procedure Issac Conway [facility] Start: 09-23-2023 End: 09-23-2023 Lab Drop off Issac Conway [facility] Start: 09-23-2023 End: 09-23-2023 ambulatory Issac Conway Facility:[facility] Start: 06-24-2023 End: 06-24-2023 ambulatory Issac Conway Facility:[facility] Start: 05-24-2023 End: 05-24-2023 ambulatory Issac Conway Facility:[facility] Start: 05-20-2023 End: 05-20-2023 ambulatory XXXX NONE Facility:[facility] Start: 04-20-2023 End: 04-20-2023 ambulatory Issac Conway Facility:[facility] [place] Start: 04-15-2023 End: 04-15-2023 ambulatory XXXX NONE Facility:[facility] Start: 04-15-2023 End: 04-15-2023 Patient encounter procedure Petar Gonzalez [facility] Start: 04-05-2023 End: 04-05-2023 ambulatory XXXX NONE Facility:[facility] Start: 04-05-2023 End: 04-05-2023 Patient encounter procedure Linda Martinez [facility] Start: 03-29-2023 End: 03-29-2023 ambulatory Issac Conway Facility:[facility] Start: 03-29-2023 End: 03-29-2023 ambulatory Issac Conway Facility:[facility] Start: 03-02-2023 End: 03-02-2023 ambulatory Baseprachi Martinez Facility:[facility] Start: 03-02-2023 End: 03-02-2023 Patient encounter procedure Linda Martinez [facility] Start: 02-08-2023 End: 02-08-2023 Patient encounter procedure Linda Martinez [facility] Start: 01-13-2023 ambulatory ISSAC Cooper y:[facility] Start: 12-21-2022 End: 12-22-[address] DOCTOR MCPHERSON Facility:[facility] Start: 11-30-2022 End: 12-01-2022 ambulatory AC GOMES Facility:[facility] Start: 10-14-2022 End: 10-15-[address] KARL MONTES . Facility:[facility] Start: 10-06-2022 End: 10-07-[address] KARL MONTES . Facility:[facility] Start: 09-29-2022 End: 09-30-[address] KARL MONTES . Facility: Start: 09-16-2022 End: 09-17-[address] KARL MONTES . Facility:[facility] Start: 09-15-2022 End: 09-16-[address] KARL MONTES . Facility:[facility] Start: 09-02-2022 End: 09-03-[address] KARL MONTES . Facility: Start: 08-25-2022 End: 08-28-2022 Evaluation and management of inpatient DR KARL MONTES . Facility: Start: 08-11-2022 End: 08-11-[address] KARL MONTES . Facility: Start: 08-09-2022 End: 08-09-2022 ambulatory CAROLINA HENRY . Facility: Start: 07-05-2022 End: 07-06-2022 Evaluation and management of inpatient UNKNOWN PROVIDER Facility:[facility] Start: 07-05-2022 End: 07-05-2022 Evaluation and management of inpatient Jacqueline Martinez MD Work Phone: [facility] Comment on above: Arrived Start: 07-04-2022 End: 07-06-2022 Evaluation and management of inpatient JACQUELINE GOODSONCRISTIANO Facility:[facility] Start: 07-04-2022 Emergency department patient visit UNKNOWN PROVIDER Facility:[facility] Start: 07-04-2022 End: 07-06-2022 Evaluation and management of inpatient Petar Walker Work Phone: [facility] Comment on above: Encounter for assess ment for small bowel obstruciton (Primary Dx) Start: 07-03-2022 End: 07-04-2022 ambulatory CAROLINA HENRY . Facility: Start: 07-01-2022 End: 07-02-[address] KARL MONTES . Facility: Start: 06-19-2022 End: 06-29-[address] KARL MONTES . Facility: Start: 06-15-2022 End: 06-17-[address] KARL MONTES . Facility: Start: 05-13-2022 End: 05-14-[address] KARL MONTES . Facility:[facility] Start: 05-11-2022 End: 05-12-[address] KARL MONTES . Facility:[facility] Start: 02-06-2022 End: 02-07-[address] KARL MONTES . Facility:[facility] Start: 01-28-2022 End: 01-29-[address] KARL MONTES . Facility:[facility] Start: 01-26-2022 End: 01-27-[address] KARL MONTES . Facility: Start: 03-02-2019 End: 03-03-2019 Patient encounter procedure PROVIDER UNKNOWN Facility:[facility] Procedures Date Procedure Procedure Detail Performing Clinician Start: 12-19-2024 Colonoscopy Jazlyn Calderon Comment on above: POOR PREP Start: 12-19-2024 Esophagogastroduodenoscopy Jazlyn barrett Start: 04-11-2024 Antibody screen JUJU OROURKE Comment on above: Order Comment: Specimen Type: ARTERIAL B LOOD SPECIMEN Ordering Facility: [facility] Address: [address] [place] [address] Performed By: #### A LLBG #### [facility] CLIA [id number] [facility] [address] Start: 03-21-2024 Antibody screen JUJU OROURKE Comment on above: Order Comment: Specimen Type: BLOOD SPEC IMENOrdering Facility: [facility] Address: [address] [place] [address] Performed By: #### T [id number] ####[facility] BLOOD BANKCLIA [id number] [address] [facility] [place] Start: 02-17-2023 Cardiac catheterization Basem Martinez Comment on above: with Dr. Worthington Start: 08-27-2022 Microscopic examination of blood, culture CAROLINA HENRY . Comment on above: Performed By: #### [id number] ####[facility] [id number] [place], [place] [address]DrDonald Hansen Start: 07-06-2022 Glucose blood reagent strip Jacqueline Martinez MD Work Phone: Start: 07-06-2022 Blood count complete automated Fernando herzog MD Work Phone: Start: 07-06-2022 End: 07-06-2022 Assay of magnesium Fernando Baker MD Work Phone: Start: 07-05-2022 Glucose blood reagent strip Jacqeuline Martinez MD Work Phone: Start: 07-05-2022 Glucose blood reagent strip Jacqueline Martinez MD Work Phone: Start: 07-05-2022 Radiologic exam small int single contrast study Hal Anthony Berman MD Work Phone: Start: 07-05-2022 Glucose blood reagent strip Jacqueline Martinez MD Work Phone: Start: 07-05-2022 Glucose blood reagent strip Jacqueline Martinez MD Work Phone: Start: 07-05-2022 Assay of magnesium Fernando Baker MD Work Phone: Start: 07-04-2022 Glucose blood reagent strip Jacqueline Martinez MD Work Phone: Start: 07-04-2022 Glucose blood reagent strip Jacqueline Martinez MD Work Phone: Start: 07-04-2022 Basic metabolic panel calcium total Fernando Baker MD Work Phone: Start: 07-04-2022 Radiologic exam chest 2 views Padmini pandya MD Work Phone: Start: 07-04-2022 CT BODY IMAGE IMPORT Padmini Cespedes MD Work Phone: Start: 07-04-2022 Blood typing serologic abo Padmini mosher MD Work Phone: Start: 07-04-2022 Blood typing, ABO, Rho(D) and RBC antibody screening Padmini Cespedes MD Work Phone: Start: 07-04-2022 End: 07-04-2022 Thromboplastin time partial plasma/whole blood Padmini Cespedes MD Work Phone: Cardiac catheter (physical object) Linda Martinez Comment on above: 07/31 and 08/02 RCA stent Cholecystectomy Linda Martinez Colonoscopy Linda Martinez Comment on above: 06/2022 Esophagogastroduoden oscopy and [facility] du[facility] Comment on above: 06/2022 repeat 2024 morales's esophagus [facility] Comment on above: 11/2011 , serous cystadenoma removed 03/23 Hernia of abdominal cavity (disorder) [facility] Total abdominal hyst erectomy with bilateral salpingo-oophorectomy Linda Martinez Plan of Treatment Date Care Activity Detail Author Start: 07-06-2025 Diabetes Screening Diabetes Screenin g [facility] Start: 04-21-2025 End: 05-21-2025 CT Abdomen and Pelvis WO contrast CT ABD/PEL WO IVCON Radiology Routine Postoperative visit Expected: 04/21/2025, Expires: 05/21/2025 [facility] Work Phone: Comment on above: Expected: 04/21/2025 , Expires: 05/21/2025 Start: 01-29-2025 ambulatory Ambulatory Facility:[facility] Start: 09-21-2024 Hemoglobin A1c measurement HbA1C [facility] Start: 04-16-2024 Covid-19 Vaccine ( season) Covid-19 Vaccine ( season) [facility] Start: 04-16-2024 Influenza vaccination [facility] Start: 04-07-2024 End: 04-07-2024 Admission to same day surgery center 04/07/2024 7:30 AM EDT - 04/07/2024 12:45 PM EDT Surgery Admitting [address] [place] [address] Juju Orourke MD [address] [place] [address] HERNIORRHAPHY VENTRAL RECURRENT REDUCIBLE GREATER THAN 10cm Admitting Comment on above: HERNIORRHAPHY VENTRA L RECURRENT REDUCIBLE GREATER THAN 10cm Start: 04-07-2024 End: 04-07-2024 HERNIORRHAPHY VENTRAL RECURRENT REDUCIBLE GREATER THAN 10cm HERNIORRHAPHY VENTRAL RECURRENT REDUCIBLE GREATER THAN 10cm Preoperative examination Incisional hernia, without obstruction or gangrene 04/07/2024 7:30 AM EDT [facility] Start: 04-07-2024 Subsequent hospital visit by physician Admitting Comment on above: Preoperative examina tion [Z01.818] Start: 03-21-2024 End: 06-20-2024 CONFIRM BLOOD TYPE [facility] Comment on above: Expected: 03/21/2024 , Expires: 06/20/2024 Start: 03-21-2024 End: 06-20-2024 Hemoglobin A1c in Blood [facility] Work Phone: Comment on above: Expected: 03/21/2024 , Expires: 06/20/2024 Start: 01-03-2024 End: 07-01-2024 aPTT in Platelet poor plasma by Coagulation assay ACTIVATED PARTIAL THROMBOPLASTIN TIME Lab Routine Preoperative examination Incisional hernia, without obstruction or gangrene Expected: 01/03/2024, Expires: 07/01/2024 [facility] Comment on above: Expected: 01/03/2024 , Expires: 07/01/2024 Start: 01-03-2024 End: 07-01-2024 CBC W Auto Differential panel - Blood COMPLETE BLOOD COUNT AND DIFFERENTIAL Lab Routine Preoperative examination Incisional hernia, without obstruction or gangrene Expected: 01/03/2024, Expires: 07/01/2024 [facility] Comment on above: Expected: 01/03/2024 , Expires: 07/01/2024 Start: 01-03-2024 End: 07-01-2024 Comprehensive metabolic 2000 panel - Serum or Plasma COMPREHENSIVE METABOLIC PANEL Lab Routine Preoperative examination Incisional hernia, without obstruction or gangrene Expected: 01/03/2024, Expires: 07/01/2024 [facility] Comment on above: Expected: 01/03/2024 , Expires: 07/01/2024 Start: 01-03-2024 End: 07-01-2024 PT panel - Platelet poor plasma by Coagulation assay PROTHROMBIN TIME Lab Routine Preoperative examination Incisional hernia, without obstruction or gangrene Expected: 01/03/2024, Expires: 07/01/2024 [facility] Comment on above: Expected: 01/03/2024 , Expires: 07/01/2024 Start: 01-03-2024 End: 07-01-2024 TYPE AND SCREEN,30 DAY TYPE AND SCREEN,30 DAY Blood Bank Routine Preoperative examination Incisional hernia, without obstruction or gangrene Expected: 01/03/2024, Expires: 07/01/2024 [facility] Comment on above: Expected: 01/03/2024 , Expires: 07/01/2024 Start: 12-27-2023 End: 03-27-2024 Hemoglobin A1c in Blood HEMOGLOBIN A1C Lab Routine Incisional hernia, without obstruction or gangrene Expected: 12/27/2023, Expires: 03/27/2024 [facility] Work Phone: Comment on above: Expected: 12/27/2023 , Expires: 03/27/2024 Start: 08-16-2023 Advance Directive Discussion Advance Directive Discussion [facility] Start: 08-16-2023 Behavioral Health Screening Behavioral Health Screening [facility] Start: 04-16-2023 Covid-19 Vaccine ( season) Covid-19 Vaccine ( season) [facility] Start: 05-16-2022 Influenza vaccination Influenza Vacc ine (#1) [facility] Start: 03-25-2022 Screening for malign ant neoplasm of lung Lung Cancer Screening [facility] Start: 09-16-2021 Welcome to Medicare Visit (G0402) Welcome to Medicare Visit (G0402) [facility] Start: 01-20-2020 Screening for osteoporosis [facility] Start: 2015 RSV Vaccine (1 - 1-d ose 60+ series) RSV Vaccine (1 - 1-dose 60+ series) [facility] Start: 2005 Measurement of occul t blood in single stool specimen FIT [facility] Start: 2005 Screening for malign ant neoplasm of colon CRC Screening [facility] Start: 2005 Shingles (RZV) Vacci ne (1 of 2) Shingles (RZV) Vaccine (1 of 2) [facility] Start: 2005 Shingrix Vaccine (1 of 2) Shingrix Vaccine (1 of 2) [facility] Start: 01-20-2000 Cholesterol [Mass/volume] in Serum or Plasma [facility] Start: 01-20-2000 Lipid panel Lipid Screening [facility] Start: 01-20-2000 Screening for malign ant neoplasm of colon [facility] Start: 1995 Screening for malign ant neoplasm [facility] breast [facility] Start: 1985 Zoledronic acid therapy Alpha- 1 Antitrypsin Deficiency Screening [facility] Start: 1974 Urine microalbumin profile DTaP,Tdap,Td Vaccine (1 - Tdap) [facility] Start: 1973 Annual PCP Team Black [employer] Raker urban Disease Visit Annual PCP Team Chronic Disease Visit [facility] Start: 1973 Anxiety Screening Anxiety Screening [facility] Start: 1973 BP Controlled (<130/80) BP Controlle d (<130/80) [facility] Start: 1973 Depression Screening Depression Scre ening [facility] Start: 1973 Hepatitis B surface antibody level LDL Cholesterol [facility] Start: 1973 [facility] Start: 1973 Spirometry Spirometry [facility] Start: 1973 Tetanus + diphtheria + acellular pertussis vaccine (product) Tdap Booster [facility] Start: 1965 Diabetic foot examination Diabetic Foot Exam [facility] Start: 1965 Glaucoma screening Dilated Retinal E xam [facility] Start: 1965 Hepatitis B screening Urine Al bumin:Creatinine Ratio [facility] Start: 1961 Pneumococcal vaccination Pneumococcal Vaccine(s) (65+ yrs) (1 - PCV) [facility] Start: 1961 Pneumococcal Vaccine : 65+ (1 of 2 - PCV) Pneumococcal Vaccine: 65+ (1 of 2 - PCV) [facility] Start: 01-20-1960 Hemoglobin A1c measurement HbA1C [facility] Start: 1955 COVID-19 Vaccine (#1) COVID-19 Vacci ne (#1) [facility] Start: 1955 Screening for malign ant neoplasm of colon [facility] Assay of magnesium MAGNESIUM Lab STAT Daily until discontinued starting 07/05/2022, 2 completed [facility] Comment on above: Daily until disconti nued starting 07/05/2022, 2 completed Assay of phosphorus inorganic PHOSPHORUS Lab STAT Daily until discontinued starting 07/05/2022, 2 completed [facility] Comment on above: Daily until disconti nued starting 07/05/2022, 2 completed Basic metabolic 2000 panel - Serum or Plasma BASIC METABOLIC PANEL Lab STAT Daily until discontinued starting 07/05/2022, 2 completed [employer] Work Phone: Comment on above: Daily until disconti nued starting 07/05/2022, 2 completed CBC panel - Blood by Automated count COMPLETE BLOOD COUNT Lab STAT Daily until discontinued starting 07/05/2022, 2 completed [facility] Comment on above: Daily until disconti nued starting 07/05/2022, 2 completed End: 12-28-2024 ECG COMPLETE ECG COMPLETE ECG Routine Preoperative examination Incisional hernia, without obstruction or gangrene 1 Occurrences starting 12/30/2023 until 12/28/2024 [facility] Comment on above: 1 Occurrences starti ng 12/30/2023 until 12/28/2024 End: 07-04-2022 Ecg routine ecg w/least 12 lds trcg only w/o i&r EKG 12 LEAD - PERFORM MUSE Routine Once for 1 Occurrences starting 07/04/2022 until 07/04/2022 [employer] Work Phone: Comment on above: Once for 1 Occurrenc es starting 07/04/2022 until 07/04/2022 HERNIORRHAPHY VENTRA L RECURRENT REDUCIBLE GREATER THAN 10cm HERNIORRHAPHY VENTRAL RECURRENT REDUCIBLE GREATER THAN 10cm Preoperative examination Incisional hernia, without obstruction or gangrene [facility] REFER FOR ADMIT INTERVIEW REFER FOR ADMIT INTERVIEW Procedures Routine Preoperative examination Incisional hernia, without obstruction or gangrene Ordered: 12/30/2023 [facility] Work Phone: Comment on above: Ordered: 12/30/2023 Immunizations Immunization Date Immunization Notes Care Provider Fa cility NEGATED: Highlighted row has not occurred!05-30-2024 influenza virus vaccine, unspecified formulation Sandid Marta [facility] NEGATED: Highlighted row has not occurred!06-24-2023 influenza virus vaccine, unspecified formulation Issac Conway [facility] NEGATED: Highlighted row has not occurred!05-24-2023 influenza virus vaccine, unspecified formulation Issac Conway [facility] Payers Date Payer Category Payer Unknown [id number] 2024 Unknown [id number] 2021 Medicare [id number] 2019 Unknown [id number] 1959 Medicare [id number] 1955 Unknown [id number] 2.16.8 40.1.997078.3.579.2.647 1955 Unknown [id number] 2.16. 840.1.974810.3.579.2.732 1955 Unknown [id number] 2.16. 840.1.042201.3.579.2.732 1955 Unknown [id number] 2.16. 840.1.604750.3.579.2.732 1955 Unknown [id number] 2.16. 840.1.617013.3.579.2.732 1955 Unknown [id number] 2.16.84 0.1.860622.3.579.2.593 1955 Unknown [id number] 2.16.84 0.1.798025.3.579.2.593 1955 Unknown [id number] 2.16.84 0.1.306551.3.579.2.593 1955 Unknown [id number] 2.16.84 0.1.091558.3.579.2.593 1955 Unknown [id number] 2.16.84 0.1.345978.3.579.2.593 1955 Unknown [id number] 2.16.84 0.1.366892.3.579.2.593 1955 Unknown [id number] 2.16.84 0.1.445138.3.579.2.593 1955 Unknown [id number] 2.16.84 0.1.914727.3.579.2.593 1955 Unknown [id number] 2.16.84 0.1.626972.3.579.2.593 1955 Unknown [id number] 2.16.84 0.1.364600.3.579.2.593 1955 Unknown [id number] 2.16.84 0.1.388297.3.579.2.593 1955 Unknown [id number] 2.16.84 0.1.099361.3.579.2.593 1955 Unknown [id number] 2.16.84 0.1.054484.3.579.2.593 1955 Unknown [id number] 2.16.84 0.1.906983.3.579.2.593 1955 Unknown [id number] 2.16.84 0.1.447102.3.579.2.593 1955 Unknown [id number] 2.16.84 0.1.979420.3.579.2.593 1955 Unknown [id number] 2.16.84 0.1.237782.3.579.2.593 1955 Unknown [id number] 2.16.84 0.1.075347.3.579.2.593 1955 Unknown [id number] 2.16.84 0.1.706803.3.579.2.593 1955 Unknown [id number] 2.16.84 0.1.356256.3.579.2.593 1955 Unknown [id number] 2.16.84 0.1.541036.3.579.2.593 1955 Unknown [id number] 2.16.8 40.1.112736.3.579.2.727 1955 Unknown [id number] 2.16.8 40.1.028623.3.579.2.727 1955 Unknown [id number] 2.16.8 40.1.540142.3.579.2.727 1955 Unknown [id number] 2.16.8 40.1.153166.3.579.2.727 1955 Unknown [id number] 2.16.8 40.1.916598.3.579.2.727 1955 Unknown [id number] 2.16.8 40.1.012884.3.579.2.727 1955 Unknown [id number] 2.16.8 40.1.689961.3.579.2.727 1955 Unknown [id number] 2.16.8 40.1.875236.3.579.2.727 1955 Unknown [id number] 2.16.8 40.1.293726.3.579.2.727 1955 Unknown [id number] 2.16.8 40.1.840471.3.579.2.727 1955 Unknown [id number] 2.16.8 40.1.033162.3.579.2.727 1955 Unknown [id number] 2.16.8 40.1.634150.3.579.2.727 1955 Unknown [id number] 2.16.8 40.1.570049.3.579.2.72 1955 Unknown [id number] 2.16.8 40.1.468702.3.579.2.72 1955 Unknown [id number] 2.16.8 40.1.552881.3.579.2. 1955 Unknown [id number] 2.16.8 40.1.107323.3.579.2.72 1955 Unknown [id number] 2.16.8 40.1.166964.3.579.2. 1955 Unknown [id number] 2.16.8 40.1.788481.3.579.2. 1955 Unknown [id number] 2.16.8 40.1.520788.3.579.2. 1955 Unknown [id number] 2.16.8 40.1.832737.3.579.2. 1955 Unknown [id number] 2.16.8 40.1.709012.3.579.2. 1955 Unknown [id number] 2.16.8 40.1.080196.3.579.2. 1955 Unknown [id number] 2.16.8 40.1.285180.3.579.2. 1955 Unknown [id number] 2.16.8 40.1.767486.3.579.2. 1955 Unknown [id number] 2.16.8 40.1.903088.3.579.2. 1955 Unknown [id number] 2.16.8 40.1.590976.3.579.2.72 1955 Unknown [id number] 2.16.8 40.1.165286.3.579.2 1955 Unknown [id number] 2.16.8 40.1.352884.3.579.2.727 1955 Unknown [id number] 2.16.8 40.1.564231.3.579.2. 1955 Unknown [id number] 2.16.8 40.1.642094.3.579.2.727 1955 Unknown [id number] 2.16.8 40.1.190017.3.579.2. 1955 Unknown [id number] 2.16.8 40.1.353348.3.579.2.72 1955 Unknown [id number] 2.16.8 40.1.771932.3.579.2. 1955 Unknown [id number] 2.16.8 40.1.223483.3.579.2. 1955 Unknown [id number] 2.16.8 40.1.756741.3.579.2. 1955 Unknown [id number] 2.16.8 40.1.813568.3.579.2. 1955 Unknown [id number] 2.16.8 40.1.935867.3.579.2.7 1955 Unknown [id number] 2.16.8 40.1.714253.3.579.2. 1955 Unknown [id number] 2.16.8 40.1.332082.3.579.2. 1955 Unknown [id number] 2.16.8 40.1.074696.3.579.2. 1955 Unknown [id number] 2.16.8 40.1.461033.3.579.2.72 1955 Unknown [id number] 2.16.8 40.1.336627.3.579.2. 1955 Unknown [id number] 2.16.8 40.1.382676.3.579.2.727 1955 Unknown [id number] 2.16.8 40.1.419653.3.579.2.727 1955 Unknown [id number] 2.16.8 40.1.250245.3.579.2.727 1955 Unknown [id number] 2.16.8 40.1.553250.3.579.2.727 1955 Unknown [id number] 2.16.8 40.1.174309.3.579.2.727 1955 Unknown [id number] 2.16.8 40.1.432160.3.579.2.727 1955 Unknown [id number] 2.16.8 40.1.642113.3.579.2.727 1955 Unknown [id number] 2.16.8 40.1.286536.3.579.2.727 1955 Unknown [id number] 2.16.8 40.1.840618.3.579.2.727 1955 Unknown [id number] 2.16.8 40.1.246499.3.579.2.727 1955 Unknown [id number] 2.16.8 40.1.987213.3.579.2.727 1955 Unknown [id number] 2.16.8 40.1.666846.3.579.2.727 1955 Unknown [id number] 2.16.8 40.1.120552.3.579.2.727 1955 Unknown [id number] 2.16.8 40.1.932374.3.579.2.727 Medicare Medicare [id number] 8ed [id number] Social History Date Type Detail Facility Start: 07-04-2022 End: 04-21-2024 Tobacco smoking status NHIS Smokes tobacco daily [facility] Start: 07-04-2022 End: 12-27-2023 Cigarettes smoked current (pack per day) - Reported 1 [facility] Work Phone: Start: 07-04-2022 End: 04-21-2024 Tobacco use and exposure Smokeless tobacco non-user [facility] Start: 1955 [facility] Start: 2023 End: 12-29-2024 Tobacco smoking status Heavy tobacco smoker (finding) [facility] Comment on above: Patient states start ed smoking at age 17, stopped briefly before resuming at 1 PPD. Patient smokes 1.5 p pd. Tobacco smoking status Never [facility] Comment on above: Patient states start ed smoking at age 17, stopped briefly before resuming at 1 PPD. Patient smokes 1.5 p pd. Start: 12-27-2023 End: 04-10-2024 Sex Assigned At Female [facility] Start: 03-21-2024 End: 04-21-2024 Alcohol intake Lifetime non-drinker (finding) [facility] Has the [employer], or water [employer] threatened to shut off services in your home in past 12Mo No [facility] Work Phone: (I/We) worried wheagustin er (my/our) food would run out before (I/we) got money to buy more. Never true [facility] Start: 10-06-2024 Tobacco smoking stat us COIS Smoker (finding) [facility] Start: 01-06-2016 End: 10-06-2024 Sex Female (finding) [facility] Start: 1955 Sex Assigned At Female [facility] Sexual Orientation [facility] Medical Equipment Procedure Code Equipment Code Equipment Origin al Text Equipment Identifier Dates Mesh Prolene Squ are Flat [id number] Surgical Knit Nonabsorbable Nonreactive - [id number] Start: 04-07-2024 B12, See Instruc tions, 3 kit(s), 4, dispense quantity sufficient for IM B12 injections: 3 mL syringes and 1 inch/23 gauge needles, [facility], Supply, 151, cm, 07/25/24 13:56:00 EST, Height/Length Dosing, 70.3, kg, 07/25/24 13:56:00 EST, Weight Dosing Start: 08-24-2024 B12, See Dimitri berman, 3 kit(s), 4, dispense quantity sufficient for IM B12 injections: 3 mL syringes and 1 inch/23 gauge needles, [facility], Supply, 151, cm, 07/25/24 13:56:00 EST, Height/Length Dosing, 70.3, kg, 07/25/24 13:56:00 EST, Weight Dosing Start: 08-24-2024 B12, See Instrbasilio berman, 3 kit(s), 4, dispense quantity sufficient for IM B12 injections: 3 mL syringes and 1 inch/23 gauge needles, [facility], Supply, 151, cm, 07/25/24 13:56:00 EST, Height/Length Dosing, 70.3, kg, 07/25/24 13:56:00 EST, Weight Dosing Start: 08-24-2024 B12, See Instrbasilio berman, 3 kit(s), 4, dispense quantity sufficient for IM B12 injections: 3 mL syringes and 1 inch/23 gauge needles, [facility], Supply, 151, cm, 07/25/24 13:56:00 EST, Height/Length Dosing, 70.3, kg, 07/25/24 13:56:00 EST, Weight Dosing Start: 08-24-2024 B12, See Instrbasilio berman, 3 kit(s), 4, dispense quantity sufficient for IM B12 injections: 3 mL syringes and 1 inch/23 gauge needles, [facility], Supply, 151, cm, 07/25/24 13:56:00 EST, Height/Length Dosing, 70.3, kg, 07/25/24 13:56:00 EST, Weight Dosing Start: 08-24-2024 B12, See Dimitri berman, 3 kit(s), 4, dispense quantity sufficient for IM B12 injections: 3 mL syringes and 1 inch/23 gauge needles, [facility] [employer] [facility], Supply, 151, cm, 07/25/24 13:56:00 EST, Height/Length Dosing, 70.3, kg, 07/25/24 13:56:00 EST, Weight Dosing Start: 08-24-2024 B12, See Dimitri berman, 3 kit(s), 4, dispense quantity sufficient for IM B12 injections: 3 mL syringes and 1 inch/23 gauge needles, [facility], Supply, 151, cm, 07/25/24 13:56:00 EST, Height/Length Dosing, 70.3, kg, 07/25/24 13:56:00 EST, Weight Dosing Start: 08-24-2024 B12, See Dimitri berman, 3 kit(s), 4, dispense quantity sufficient for IM B12 injections: 3 mL syringes and 1 inch/23 gauge needles, [facility], Supply, 151, cm, 07/25/24 13:56:00 EST, Height/Length Dosing, 70.3, kg, 07/25/24 13:56:00 EST, Weight Dosing Start: 08-24-2024 B12, See Dimitri berman, 3 kit(s), 4, dispense quantity sufficient for IM B12 injections: 3 mL syringes and 1 inch/23 gauge needles, [facility], Supply, 151, cm, 07/25/24 13:56:00 EST, Height/Length Dosing, 70.3, kg, 07/25/24 13:56:00 EST, Weight Dosing Start: 08-24-2024 Functional Status Date Assessment Result Facility 12-29-2024 Functional Status N/A [facility] 12-19-2024 Functional Status N/A [facility] 02-16-2024 Functional Status N/A [facility] 10-06-2023 Functional Status N/A [facility] 04-15-2023 Functional Status No [facility] 04-05-2023 Functional Status No [facility] 02-08-2023 Functional Status No [facility] Clinical Notes 06-15-2022 to 12-29-2024 Note Date & Type Note Facility 12-29-2024 Hospital Discharg e instructions Patient Education 12/29/2024 14:52:36 Skin Yeast Infection Skin Yeast Infection A skin yeast infection is a condition in which there is an overgrowth of yeast (Yaima) that normally lives on the skin. This condition usually occurs in areas of the skin that are constantly warm and moist, such as the skin under the breasts or armpits, or in the groin and other body folds. What are the causes? This condition is caused by a change in the normal balance of the yeast that live on the skin. What increases the risk? You are more likely to develop this condition if you: Are obese. Are . Are 65 years of age or older. Wear tight clothing. Have any of the following conditions: ?Diabetes. ?Malnutrition. ?A weak body defense system (immune system). Take medicines such as: ? control pills. ?Antibiotics. ?Steroid medicines. What are the signs or symptoms? The most common symptom of this condition is itchiness in the affected area. Other symptoms include: A red, swollen area of the skin. Bumps on the skin. How is this diagnosed? This condition is diagnosed with a medical history and physical exam. Your health care provider may check for yeast by taking scrapings of the skin to be viewed under a microscope. How is this treated? This condition is treated with medicine. Medicines may be prescribed or available over the counter. The medicines may be: Taken by mouth (orally). Applied as a cream or powder to your skin. Follow these instructions at home: Take or apply [id number] and prescription medicines only as told by your health care provider. Maintain a healthy weight. If you need help losing weight, talk with your health care provider. Keep your skin clean and dry. Wear loose-fitting clothing. If you have diabetes, keep your blood sugar under control. Keep all follow-up visits. This is important. Contact a health care provider if: Your symptoms go away and then come back. Your symptoms do not get better with treatment. Your symptoms get worse. Your rash spreads. You have a fever or chills. You have new symptoms. You have new warmth or redness of your skin. Your rash is painful or bleeding. Summary A skin yeast infection is a condition in which there is an overgrowth of yeast (Yaima) that normally lives on the skin. Take or apply yoiq-hxd-jzpdtrj and prescription medicines only as told by your health care provider. Keep your skin clean and dry. Contact a health care provider if your symptoms do not get better with treatment. This information is not intended to replace advice given to you by your health care provider. Make sure you discuss any questions you have with your health care provider. Document Revised: 10/21/2021 Document Reviewed: 10/21/2021 [employer] Patient Education 2023 [employer]. 12/29/2024 14:52:30 Tick Bite Information, Adult Tick Bite Information, Adult Ticks are insects that draw blood for food. They climb onto people and animals that brush against the leaves and grasses that they live in. They then bite and attach to the skin. Most ticks are harmless, but some ticks may carry germs that can cause disease. These germs are spread to a person through a bite. To lower your risk of getting a disease from a tick bite, make sure you: Take steps to prevent tick bites. Check for ticks after being outdoors where ticks live. Watch for symptoms of disease if a tick attached to you or if you think a tick bit you. How can I prevent tick bites? Take these steps to help prevent tick bites when you go outdoors in an area where ticks live: Before you go outdoors: Wear long sleeves and long pants to protect your skin from ticks. Wear light-colored clothing so you can see ticks easier. Tuck your pant legs into your socks. Apply insect repellent that has DEET (20% or higher), picaridin, or [id number] in it to the following areas: ?Any bare skin. Avoid areas around the eyes and mouth. ?Edges of clothing, like the top of your boots, the bottom of your pant legs, and your sleeve cuffs. Consider applying an insect repellant that contains permethrin. Follow the instructions on the label. Do not apply permethrin directly to the skin. Instead, apply to the following areas: ?Clothing and shoes. ?Outdoor gear and tents. When you are outdoors: Avoid walking through areas with long grass. If you are walking on a trail, stay in the middle of the trail so your skin, hair, and clothing do not touch the bushes. Check for ticks on your clothing, hair, and skin often while you are outdoors. Check again before you go inside. When you go indoors: Check your clothing for ticks. Tumble dry clothes in a dryer on high heat for at least 10 minutes. If clothes are damp, additional time may be needed. If clothes require washing, use hot water. Check your gear and pets. Shower soon after being outdoors. Check your body for ticks. Do a full body check using a mirror. Be sure to check your scalp, neck, armpits, waist, groin, and joint areas. These are the spots where ticks attach themselves most often. What is the best way to remove a tick? Remove the tick as soon as possible. Removing it can prevent germs from passing to your body. Do not remove the tick with your bare fingers. Do not try to remove a tick with heat, alcohol, petroleum jelly, or fingernail kenyan. These things can cause the tick to salivate and regurgitate into your bloodstream, increasing your risk of getting a disease. To remove a tick that is crawling on your skin: Go outside and brush the tick off. Use tape or a lint roller. To remove a tick that is attached to your skin: 1.Wash your hands. If you have gloves, put them on. 2.Use a fine-tipped tweezer, curved forceps, or a tick-removal tool to gently grasp the tick as close to your skin and the tick's head as possible. 3.Gently pull with a steady, upward, and even pressure until the tick lets go. 4.While removing the tick: Take care to keep the tick's head attached to its body. Do not twist or jerk the tick. This can make the tick's head or mouth parts break off and stay in your skin. If this happens, try to remove the mouth parts with tweezers. If you cannot remove them, leave the area alone and let the skin heal. Do not squeeze or crush the tick's body. This could force disease-carrying fluids from the tick into your body. What should I do after removing a tick? Clean the bite area and your hands with soap and water, rubbing alcohol, or an iodine scrub. If an antiseptic cream or ointment is available, put a small amount on the bite area. Wash and disinfect any tools that you used to remove the tick. How should I dispose of a tick? To dispose of a live tick, use one of these methods: Place it in rubbing alcohol. Place it in a sealed bag or container, and throw it away. Wrap it tightly in tape, and throw it away. Flush it down the toilet. Where to find more information Centers for Disease Control and Prevention: cdc.gov/ticks [place] Environmental Protection Agency: epa.gov/insect-repellents Contact a health care provider if: You have symptoms of a disease after a tick bite. Symptoms of a tick-borne disease can occur from moments after the tick bites to 30 days after a tick is removed. Symptoms include: ?Fever or chills. ?A red rash that makes a chilkoot (bull's-eye rash) in the bite area. ?Redness and swelling in the bite area. ?Headache or stiff neck. ?Muscle, joint, or bone pain. ?Abnormal tiredness. ?Numbness in your legs or trouble walking or moving your legs. ?Tender or swollen lymph glands. ?Abdominal pain, vomiting, diarrhea, or weight loss. Get help right away if: You are not able to remove a tick. You have muscle weakness or paralysis. Your symptoms get worse or you experience new symptoms. You find an engorged tick on your skin and you are in an area where there is a higher risk of disease from ticks. Summary Ticks may carry germs that can spread to a person through a bite. These germs can cause disease. Wear protective clothing and use insect repellent to prevent tick bites. Follow the instructions on the label. If you find a tick on your body, remove it as soon as possible. If the tick is attached, do not try to remove it with heat, alcohol, petroleum jelly, or fingernail kenyan. If you have symptoms of a disease after being bitten by a tick, contact a health care provider. This information is not intended to replace advice given to you by your health care provider. Make sure you discuss any questions you have with your health care provider. Document Revised: 11/02/2022 Document Reviewed: 11/02/2022 [employer] Patient Education 2023 [employer]. Follow Up Care 12/29/2024 13:21:12 With:Man GUY, Issac Sam [facility] Address: [address] [place] [address]- When: Unknown [facility] 12-19-2024 Evaluation + Plan note Extrac alexia from: Title:ANES Post-operative Note- Author:Juan Pablo Fisher Date:12/19/24 Plan Transfer/Discharge: Transfer/Discharge Discharge when meets criteria ( From PACU to floor ). Extracted from: Title:EGD Bx Author:Jazlyn Calderon MD te:12/19/24 Patient: JOHANNA MACDONLAD Age: 69 years Sex: Female : 1955 Associated Diagnoses: None Author: Jazlyn Calderon MD Pre-Procedure Procedure Date 12/19/2024 11:26:00 . Procedure Type: Esophagogastroduodenoscopy with biopsy. Procedure provider Performed by Jazlyn Calderon MD. Current history and physical Documented on chart. Informed Consent After discussing the rationale, risks and benefits, and alternatives to this procedure, the patient provided signed consent for the procedure. Pre-procedure diagnosis: anemia, dysphagia. Medications (Selected) Inpatient Medications Ordered Sodium Chloride 0.9% IV Ana Cristina 1000 mL 1,000 mL: 1,000 mL, IV, 20 mL/hr, Routine, Start date 12/19/24 7:14:00 EDT, 50 hour(s), Total volume (mL): 1,000, 73.4 kg, 1.75, m2 Zero Hour: Day of Tx Zero Hour: Day of Tx Zero Hour: Day of Tx Zero Hour: Day of Tx Zero Hour: Day of Tx Zero Hour: Day of Tx Zero Hour: Day of Tx Zero Hour: Day of Tx Zero Hour: Day of Tx Zero Hour: Day of Tx Zero Hour: Day of Tx Future Zero Hour: Day of Tx Zero Hour: Day of Tx Zero Hour: Day of Tx Zero Hour: Day of Tx Zero Hour: Day of Tx Zero Hour: Day of Tx Zero Hour: Day of Tx Zero Hour: Day of Tx Zero Hour: Day of Tx Zero Hour: Day of Tx Zero Hour: Day of Tx Zero Hour: Day of Tx Zero Hour: Day of Tx Zero Hour: Day of Tx Zero Hour: Day of Tx Zero Hour: Day of Tx Zero Hour: Day of Tx Zero Hour: Day of Tx Zero Hour: Day of Tx Zero Hour: Day of Tx Zero Hour: Day of Tx Zero Hour: Day of Tx Zero Hour: Day of Tx Zero Hour: Day of Tx cyanocobalamin (DoT): 1,000 mcg = 1 mL, Injection, IntraMuscular, Day of Tx, Routine, Start date 09/05/24 cyanocobalamin (DoT): 1,000 mcg = 1 mL, Injection, IntraMuscular, Day of Tx, Routine, Start date 09/11/25 cyanocobalamin (DoT): 1,000 mcg = 1 mL, Injection, IntraMuscular, Day of Tx, Routine, Start date 10/03/24 cyanocobalamin (DoT): 1,000 mcg = 1 mL, Injection, IntraMuscular, Day of Tx, Routine, Start date 10/09/25 cyanocobalamin (DoT): 1,000 mcg = 1 mL, Injection, IntraMuscular, Day of Tx, Routine, Start date 10/31/24 cyanocobalamin (DoT): 1,000 mcg = 1 mL, Injection, IntraMuscular, Day of Tx, Routine, Start date 11/06/25 cyanocobalamin (DoT): 1,000 mcg = 1 mL, Injection, IntraMuscular, Day of Tx, Routine, Start date 11/28/24 cyanocobalamin (DoT): 1,000 mcg = 1 mL, Injection, IntraMuscular, Day of Tx, Routine, Start date 12/26/24 cyanocobalamin (DoT): 1,000 mcg = 1 mL, Injection, IntraMuscular, Day of Tx, Routine, Start date 01/02/25 cyanocobalamin (DoT): 1,000 mcg = 1 mL, Injection, IntraMuscular, Day of Tx, Routine, Start date 01/23/25 cyanocobalamin (DoT): 1,000 mcg = 1 mL, Injection, IntraMuscular, Day of Tx, Routine, Start date 01/30/25 cyanocobalamin (DoT): 1,000 mcg = 1 mL, Injection, IntraMuscular, Day of Tx, Routine, Start date 02/20/25 cyanocobalamin (DoT): 1,000 mcg = 1 mL, Injection, IntraMuscular, Day of Tx, Routine, Start date 02/27/25 cyanocobalamin (DoT): 1,000 mcg = 1 mL, Injection, IntraMuscular, Day of Tx, Routine, Start date 03/20/25 cyanocobalamin (DoT): 1,000 mcg = 1 mL, Injection, IntraMuscular, Day of Tx, Routine, Start date 03/27/25 cyanocobalamin (DoT): 1,000 mcg = 1 mL, Injection, IntraMuscular, Day of Tx, Routine, Start date 04/17/25 cyanocobalamin (DoT): 1,000 mcg = 1 mL, Injection, IntraMuscular, Day of Tx, Routine, Start date 04/24/25 cyanocobalamin (DoT): 1,000 mcg = 1 mL, Injection, IntraMuscular, Day of Tx, Routine, Start date 05/15/25 cyanocobalamin (DoT): 1,000 mcg = 1 mL, Injection, IntraMuscular, Day of Tx, Routine, Start date 05/22/25 cyanocobalamin (DoT): 1,000 mcg = 1 mL, Injection, IntraMuscular, Day of Tx, Routine, Start date 06/12/25 cyanocobalamin (DoT): 1,000 mcg = 1 mL, Injection, IntraMuscular, Day of Tx, Routine, Start date 06/19/25 cyanocobalamin (DoT): 1,000 mcg = 1 mL, Injection, IntraMuscular, Day of Tx, Routine, Start date 07/17/25 cyanocobalamin (DoT): 1,000 mcg = 1 mL, Injection, IntraMuscular, Day of Tx, Routine, Start date 08/08/24 cyanocobalamin (DoT): 1,000 mcg = 1 mL, Injection, IntraMuscular, Day of Tx, Routine, Start date 08/14/25 Prescriptions Prescribed B12: B12, See Instructions, 10 packet(s), 3, IntraMuscular, [facility], Supply, 151, cm, 07/11/24 14:31:00 EST, Height/Length Dosing, 69.9, kg, 07/11/24 14:31:00 EST, Weight Dosing B12: B12, See Instructions, 3 kit(s), 4, dispense quantity sufficient for IM B12 injections: 3 mL syringes and 1 inch/23 gauge needles, [facility], Supply, 151, cm, 07/25/24 13:56:00 EST, Height/Length Dosing, 70.3, kg, 07/25/24 13:56:00 ES... Flonase 0.05 mg/inh [place]: 1 spray(s), Nasal, BID, 16 gram, Refill(s) 0, each nostril, [facility], 151, cm, 07/25/24 13:56:00 EST, Height/Length Dosing, 70.3, kg, 07/25/24 13:56:00 EST, Weight Dosing [facility] Prescription: [facility] Prescription, See Instructions, 1 Unspecified/Unknown, 3, wear O2 as directed, Supply, 151, cm, 04/25/24 13:52:00 EDT, Height/Length Dosing, 70.8, kg, 04/25/24 13:52:00 EDT, Weight Dosing albuterol-ipratropium Inh Ana Cristina 3 mL UD: 3 mL, NEB, QID, 1,080 mL, Refill(s) 4, [facility], 151, cm, 05/30/24 13:14:00 EDT, Height/Length Dosing, 69.5, kg, 05/30/24 13:14:00 EDT, Weight Dosing amLODIPine 10 mg Tab: 10 mg = 1 tab(s), Oral, Daily, TAKE 1 TABLET BY MOUTH DAILY, # 90 tab(s), Refills(s) 3, Pharmacy: [facility], 151, cm, 12/06/24 12:32:00 EDT, Height/Length Dosing, 73.4, kg, 12/06/24 12:32:00 EDT, Weight Dosing atorvastatin 80 mg Tab: 80 mg = 1 tab(s), Oral, Daily, TAKE 1 TABLET BY MOUTH DAILY, # 90 tab(s), Refills(s) 3, Pharmacy: [facility], 151, cm, 12/06/24 12:32:00 EDT, Height/Length Dosing, 73.4, kg, 12/06/24 12:32:00 EDT, Weight Dosing cyanocobalamin 1000 mcg/mL Inj: See Instructions, 1 mL IntraMuscular every other week, # 10 mL, Refills(s) 3, Pharmacy: [facility], 151, cm, 07/11/24 14:31:00 EST, Height/Length Dosing, 69.9, kg, 07/11/24 14:31:00 EST, Weight Dosing esomeprazole 40 mg Cap-EC: 40 mg = 1 cap(s), Oral, BID, TAKE 1 CAPSULE BY MOUTH TWICE DAILY Covering for Caridad Conway, # 180 cap(s), Refills(s) 3, Pharmacy: [facility], 151, cm, 07/25/24 13:56:00 EST, Height/Length Dosing, 70.3, kg, 07/25/24 13:56:00 EST, Weight Dosing... nebulizer supplies: nebulizer supplies, See Instructions, 1 EA, 0, nebulizer supplies- tubing and cup, [facility], Supply, 151, cm, 01/25/24 13:05:00 EDT, Height/Length Dosing, 72.5, kg, 01/25/24 13:05:00 EDT, Weight Dosing Documented Medications Documented Entresto 24 mg-26 mg oral tablet: 1 tab(s), Oral, BID, 60 tab(s), Refill(s) 0, High blood pressure aspirin 81 mg Oral EC Tab: 81 mg = 1 tab(s), Oral, Daily, # 90 tab(s), Refills(s) 0, Prophylaxis isosorbide mononitrate 30 mg ER Tab: 30 mg = 1 tab(s), Oral, qAM, High blood pressure nitroglycerin: See Instructions, 0.4 mg SubLingual as needed for chest pain, Refills(s) 0 Anticoagulant/antiplatelet None. ASA Classification: Class III. . Monitoring: See anesthesia record. . Procedure The procedure was performed in the hospital. See anesthesia record for sedation given during procedure. The patient was positioned starting in the left lateral decubitus position and with safety measures. Endoscope type used was an adult-size, introduced orally, advanced to the 2nd portion of the duodenum. No difficulty was encountered during the procedure. Views were excellent. The patient tolerated the procedure well. Findings 1. Nonobstructing Schatzki's ring at 38 cm status post biopsies. Hiatal hernia measuring 2 cm 2. Diffuse patchy erythema with areas of atrophy concerning for atrophic gastritis. More prominent in the distal stomach. Biopsies obtained 3. Normal duodenum. Biopsies obtained Images Procedure images: [id number].jpg [id number]_video_[id number].jpg [id number]_[id number]__[id number].jpg [id number]_hd_video___[id number].jpg [id number]_hd_video___[id number].jpg [id number]_hd_video_T1__[id number].jpg [id number]_hd_video_T1__[id number].jpg [id number]_video_[id number]__[id number]__[id number].jpg [id number]_video_[id number]__[id number]__[id number].jpg . Post-Procedure Complications: none. Estimated blood loss: minimal. Specimens: sent to pathology. Devices/ implants: none left in place. Impression and Plan nonobstructing Schatzki's ring status post dilation Hiatal hernia Atrophic gastropathy status post biopsies Recommendations: -Resume previous diet -Resume home medications -Await pathology results, follow in GI clinic in 1-2 after discharge Addendum by Kvng GUY, Amy Hung on December 19, 2024 11:28 EDT Colonoscopy was not performed since stoo l was dark brown when we are getting ready to initiate the procedure Extracted from: Title:ANES Pre-operative Note - Endo Author:Kristina perry MD, Juan Pablo Hernandez Date:12/19/24 Plan [place] [employer] (ASA) physical status classification: Class III. Anesthetic Preoperative Plan: Anesthesia General, and -TIVA. Future Appointments Appointment Date:01/02/2025 02:00:00 PM Scheduled [facility]: [facility] Type:ONC Injection (FT) Appointment Date:01/29/2025 01:40:00 PM Scheduled Provider:Issac Conway MD Location:[facility] Appointment Type: Open Appointment Date:01/30/2025 02:00:00 PM Scheduled Provider: [facility] Type:ONC Injection (FT) Appointment Date:02/19/2025 02:30:00 PM Scheduled Provider: Location:[facility] Appointment Type:FM Medicare Wellness Subsequent Appointment Date:02/27/2025 02:00:00 PM Scheduled Provider: Location:.ONCOLOGY Appointment Type:ONC Injection (FT) Appointment Date:03/27/2025 02:00:00 PM Scheduled Provider: Location:.ONCOLOGY Appointment Type:ONC Injection (FT) Appointment Date:04/24/2025 02:00:00 PM Scheduled Provider: Location:.ONCOLOGY Appointment Type:ONC Injection (FT) Appointment Date:05/07/2025 01:00:00 PM Scheduled Provider:Marianne Lozano MD Location:.ONCOLOGY Appointment Type:ONC Office Visit 20 (FT) Appointment Date:05/22/2025 02:00:00 PM Scheduled Provider: Location:.ONCOLOGY Appointment Type:ONC Injection (FT) Appointment Date:06/19/2025 02:00:00 PM Scheduled Provider: Location:.ONCOLOGY Appointment Type:ONC Injection (FT) Appointment Date:07/17/2025 02:00:00 PM Scheduled Provider: Location:.ONCOLOGY Appointment Type:ONC Injection (FT) Appointment Date:08/14/2025 02:00:00 PM Scheduled Provider: Location:.ONCOLOGY Appointment Type:ONC Injection (FT) Appointment Date:09/11/2025 02:00:00 PM Scheduled Provider: Location:FT.ONCOLOGY Appointment Type:ONC Injection (FT) Appointment Date:10/09/2025 02:00:00 PM Scheduled Provider: Location:.ONCOLOGY Appointment Type:ONC Injection (FT) Appointment Date:11/06/2025 02:00:00 PM Scheduled Provider: Location:.ONCOLOGY Appointment Type:ONC Injection (FT) Future Scheduled Tests Laboratory* Bxmvh-7-Dexqljvrxjr 12/06/24 * Ceruloplasmin 12/06/24 * Antimitochondrial Antibody, Quantitative 12/06/24 * Alkaline Phosphatase Isoenzymes 12/06/24 * Smooth Muscle Antibody Screen 12/06/24 * NARCISA w/Reflex if POS 12/06/24 * IgG, Quant. 12/06/24 * Hepatitis A Virus (HAV) Antibody, Total 12/06/24 * Acute Hepatitis A B C Panel 12/06/24 * HCV Antibody RFX to Quant PCR 02/15/24 * Vitamin D 25 Hydroxy 12/06/24 * CBC w/ Auto Diff 04/30/25 * Ferritin 04/30/25 * Folate Level 04/30/25 * Iron Level 04/30/25 * Iron Percent Saturation 04/30/25 * Transferrin 04/30/25 * Vitamin B12 Level 04/30/25 Radiology* MA Mamm Screen w/CAD if perf and 3D [place] 02/15/[address] [facility] 05-06-2025 Hospital Discharge instructions Patient Education 12/19/2024 11:41:54 Gastritis, Adult, Qbns-db-Faxd Gastritis, Adult Gastritis is irritation and swelling (inflammation) of the stomach. There are two kinds of gastritis: Acute gastritis. This kind develops quickly. Chronic gastritis. This kind is much more common. It develops slowly and lasts for a long time. It is important to get help for this condition. If you do not get help, your stomach can bleed, andyou can get sores (ulcers) in your stomach. What are the causes? This condition may be caused by: Germs that get to your stomach and cause an infection. Drinking too much alcohol. Medicines you are taking. Having too much acid in the stomach. Having a disease of the stomach. Other causes may include: An allergic reaction. Some cancer treatments (radiation). Smoking cigarettes or using products that contain nicotine or tobacco. In some cases, the cause of this condition is not known. What increases the risk? Having a disease of the intestines. Having Crohn's disease. Using aspirin or ibuprofen and other NSAIDs to treat other conditions. Stress. What are the signs or symptoms? Pain in your stomach. A burning feeling in your stomach. Feeling like you may vomit (nauseous). Vomiting or vomiting blood. Feeling too full after you eat. Weight loss. Bad breath. Blood in your poop (stool). In some cases, there are no symptoms. How is this treated? This condition is treated with medicines. The medicines that are used depend on what caused the condition. You may be given: Antibiotic medicine, if your condition was caused by an infection from germs. H2 blockers and similar medicines, if your condition was caused by too much acid in the stomach. Treatment may also include stopping the use of certain medicines, such as aspirin or ibuprofen. Follow these instructions at home: Medicines Take odwi-zmh-puqaugu and prescription medicines only as told by your doctor. If you were prescribed an antibiotic medicine, take it as told by your doctor. Do not stop taking it even if you start to feel better. Alcohol use Do not drink alcohol if: ?Your doctor tells you not to drink. ?You are , may be , or are planning to become . If you drink alcohol: ?Limit your use to: ?0 1 drink a day for women. ?0 2 drinks a day for men. ?Know how much alcohol is in your drink. In the [place] one drink equals one 12 oz bottle of beer (355 mL), one 5 oz glass of wine (148 mL), or one 1 oz glass of hard liquor (44 mL). General instructions Eat small meals often, instead of large meals. Avoid foods and drinks that make you feel worse. Drink enough fluid to keep your pee (urine) pale yellow. Talk with your doctor about ways to manage stress. You can exercise or do deep breathing, meditation, or yoga. Do not smoke or use any products that contain nicotine or tobacco. If you need help quitting, ask your doctor. Keep all follow-up visits. Contact a doctor if: Your symptoms get worse. Your stomach pain gets worse. Your symptoms go away and then come back. You have a fever. Get help right away if: You vomit blood or something that looks like coffee grounds. You have black or dark red poop. You throw up any time you try to drink fluids. These symptoms may be an emergency. Get help right away. Call your local emergency services (911 int [place] Do not wait to see if the symptoms will go away. Do not drive yourself to the hospital. Summary Gastritis is irritation and swelling (inflammation) of the stomach. You must get help for this condition. If you do not get help, your stomach can bleed, and you can get sores (ulcers) in your stomach. You can be treated with medicines for germs or medicines to block too much acid in your stomach. This information is not intended to replace advice given to you by your health care provider. Make sure you discuss any questions you have with your health care provider. Document Revised: 12/06/2021 Document Reviewed: 12/06/2021 [employer] Patient Education 2023 [employer] 12/19/2024 11:41:20 Endoscopy, Care After Procedure [facility] ([facility]) Endoscopy Care After Procedure Please read the instructions outlined below and refer to this sheet in the next few weeks. These discharge instructions provide you with general information on caring for [facility] Your doctor may also give you specific instructions. While your treatment has been planned according to the most current medical practices available, unavoidable complications occasionally occur. If you have any problems or questions after discharge, please call your doctor. ACTIVITY You may resume your regular activity but move at a slower pace for the next 24 hours. Take frequent rest periods for the next 24 hours. Walking will help expel (get rid of) the air and reduce the bloated feeling in your abdomen. No driving for 24 hours (because of the anesthesia (medicine) used during the test). You may shower. Do not sign any important legal documents or operate any machinery for 24 hours (because of the anesthesia used during the test). NUTRITION Drink plenty of fluids. You may resume your normal diet. Begin with a light meal and progress to your normal diet. Avoid alcoholic beverages for 24 hours or as instructed by your caregiver. MEDICATIONS You may resume your normal medications unless your caregiver tells you otherwise. WHAT YOU CAN EXPECT TODAY You may experience abdominal discomfort such as a feeling of fullness or gas pains. FOLLOW-UP Your doctor will discuss the results of your test with you. SEEK IMMEDIATE MEDICAL ATTENTION IF ANY OF THE FOLLOWING OCCUR: Excessive nausea (feeling sick to your stomach) and/or vomiting. Severe abdominal pain and distention (swelling). Trouble swallowing. Temperature over 100 F (37.8 C). Rectal bleeding or vomiting of blood. Document Released: 03/16/2005 Document Re-Released: 01/24/2007 ExitCare Patient Information 2009 [employer]. Follow Up Care 12/08/2024 10:52:02 With:Kvng GUY, JULI Mir, MED Address: [address] [place] [address], [address] [place] [phone] When: Unknown Comments:Call for any problems. Call the office in about one week to schedule a follow up appointment to go over results. [facility] 05-06-2025 NoteProgress Note-Physician Patient: JOHANNA MACDONALD Age: 69 years Sex: Female : 1955 Associated Diagnoses: None Author: Juan Pablo Whitehead MD Postoperative Information Postoperative disposition: Postoperative disposition: To PACU. Optimetrix number: Optimetrix number [id number]. Anesthetic utilized: General. Health Status Allergies: Allergic Reactions (Selected) Severity Not Documented Amoxicillin- Unknown. Atenolol- Unknown. Biaxin- Unknown. Cipro- Unknown. Doxycycline- Unknown. Keflex- Unknown. Sulfa drugs- Unknown. Physical Examination Vital Signs 12/19/2024 11:45 EDT SpO2 93 % 12/19/2024 11:45 EDT Heart Rate Monitored 73 bpm 12/19/2024 11:45 EDT Respiratory Rate Monitored 17 br/min 12/19/2024 11:45 EDT Systolic Blood Pressure 120 mmHg Diastolic Blood Pressure 67 mmHg Mean Arterial Pressure, Cuff 85 mmHg 12/19/2024 11:31 EDT SpO2 92 % 12/19/2024 11:31 EDT Respiratory Rate Monitored 18 br/min 12/19/2024 11:31 EDT Systolic Blood Pressure 125 mmHg Diastolic Blood Pressure 59 mmHg 12/19/2024 11:31 EDT Temperature Temporal Artery 36.8 DegC Heart Rate Monitored 74 bpm Mean Arterial Pressure, Cuff 81 mmHg 12/19/2024 9:02 EDT Respiratory Rate Monitored 20 br/min 12/19/2024 9:02 EDT Systolic Blood Pressure 145 mmHg HI Diastolic Blood Pressure 70 mmHg 12/19/2024 9:02 EDT Temperature Temporal Artery 36.7 DegC Heart Rate Monitored 74 bpm Blood Pressure Location Left arm SpO2 98 % Pain Assessment: Controlled. General: Awake, Alert, Appropriate. Respiratory: Adequate air exchange. Cardiovascular: Stable, Normal peripheral perfusion. Neurological: Normal sensory function, Normal motor function. Assessment Anesthetic outcome No anesthetic complications noted. Adequate pain relief. able to void without difficulty, able to ambulate with assist, tolerating PO intake, no N/V. Review / Management Condition: Stable. Plan Transfer/Discharge: Transfer/Discharge Discharge when meets criteria ( From PACU to floor ).[facility]Result Comment: Electronically Signed By: Juan Pablo Whitehead MD\.br\Date and Time Signed: 12/20/2511:59 [id number] NotePatient Education - Text Endoscopy Care After Procedure Please read the instructions outlined below and refer to this sheet in the next few weeks. These discharge instructions provide you with general information on caring for [facility] Your doctor may also give you specific instructions. While your treatment has been planned according to the most current medical practices available, unavoidable complications occasionally occur. If you have any problems or questions after discharge, please call your doctor. ACTIVITY ??? You may resume your regular activity but move at a slower pace for the next 24 hours. ??? Take frequent rest periods for the next 24 hours. ??? Walking will help expel (get rid of) the air and reduce the bloated feeling in your abdomen. ??? No driving for 24 hours (because of the anesthesia (medicine) used during the test). ??? You may shower. ??? Do not sign any important legal documents or operate any machinery for 24 hours (because of theanesthesia used during the test). NUTRITION ??? Drink plenty of fluids. ??? You may resume your normal diet. ??? Begin with a light meal and progress to your normal diet. ??? Avoid alcoholic beverages for 24 hours or as instructed by your caregiver. MEDICATIONS ??? You may resume your normal medications unless your caregiver tells you otherwise. WHAT YOU CAN EXPECT TODAY ??? You may experience abdominal discomfort such as a feeling of fullness or ???gas??? pains. FOLLOW-UP ??? Your doctor will discuss the results of your test with you. seek immediate medical attention if any of the following occur: ??? Excessive nausea (feeling sick to your stomach) and/or vomiting. ??? Severe abdominal pain and distention (swelling). ??? Trouble swallowing. ??? Temperature over 100 F (37.8??? C). ??? Rectal bleeding or vomiting of blood. Document Released: 03/16/2005 Document Re-Released: 01/24/2007 ExitCare??? Patient Information ???2009 [employer]. Infectious Disease Gastritis, Adult Gastritis is irritation and swelling (inflammation) of the stomach. There are two kinds of gastritis: ??? Acute gastritis. This kind develops quickly. ??? Chronic gastritis. This kind is much more common. It develops slowly and lasts for a long time. It is important to get help for this condition. If you do not get help, your stomach can bleed, andyou can get sores (ulcers) in your stomach. What are the causes? This condition may be caused by: ??? Germs that get to your stomach and cause an infection. ??? Drinking too much alcohol. ??? Medicines you are taking. ??? Having too much acid in the stomach. ??? Having a disease of the stomach. Other causes may include: ??? An allergic reaction. ??? Some cancer treatments (radiation). ??? Smoking cigarettes or using products that contain nicotine or tobacco. In some cases, the cause of this condition is not known. What increases the risk? Having a disease of the intestines. ??? Having Crohn's disease. ??? Using aspirin or ibuprofen and other NSAIDs to treat other conditions. ??? Stress. What are the signs or symptoms? Pain in your stomach. ??? A burning feeling in your stomach. ??? Feeling like you may vomit (nauseous). ??? Vomiting or vomiting blood. ??? Feeling too full after you eat. ??? Weight loss. ??? Bad breath. ??? Blood in your poop (stool). In some cases, there are no symptoms. How is this treated? This condition is treated with medicines. The medicines that are used depend on what caused the condition. You may be given: ??? Antibiotic medicine, if your condition was caused by an infection from germs. ??? H2 blockers and similar medicines, if your condition was caused by too much acid in the stomach. Treatment may also include stopping the use of certain medicines, such as aspirin or ibuprofen. Follow these instructions at home: Medicines ??? Take [id number] and prescription medicines only as told by your doctor. ??? If you were prescribed an antibiotic medicine, take it as told by your doctor. Do not stop taking it even if you start to feel better. Alcohol use ??? Do not drink alcohol if: ? Your doctor tells you not to drink. ? You are , may be , or are planning to become . ??? If you drink alcohol: ? Limit your use to: ? 0?1 drink a day for women. ? 0?2 drinks a day for men. ? Know how much alcohol is in your drink. In the [place] one drink equals one 12 oz bottle of beer (355 mL), one 5 oz glass of wine (148 mL), or one 1? oz glass of hard liquor (44 mL). General instructions ??? Eat small meals often, instead of large meals. ??? Avoid foods and drinks that make you feel worse. ??? Drink enough fluid to keep your pee (urine) pale yellow. ??? Talk with your doctor about ways to manage stress. You can exercise or do deep toña (more content not included)...[facility] NoteProgress Note-Physician Patient: JOHANNA MACDONALD Age: 69 years Sex: Female : 1955 Associated Diagnoses: None Author: Charley GUY, Juan Pablo Hernandez Preoperative Information Anesthesia history: Patient history: No prior anesthetic problems. Informed consent: Signed by patient. Re-evaluation prior to induction: Initial evaluation reviewed: No significant change. Review of Systems Respiratory: Negative except as documented in history of present illness. Cardiovascular: Negative except as documented in history of present illness. Health Status Allergies: Allergic Reactions (Selected) Severity Not Documented Amoxicillin- Unknown. Atenolol- Unknown. Biaxin- Unknown. Cipro- Unknown. Doxycycline- Unknown. Keflex- Unknown. Sulfa drugs- Unknown., Allergies (7) Active Severity Reaction Biaxin Unknown Keflex Unknown Cipro Unknown amoxicillin Unknown atenolol Unknown doxycycline Unknown sulfa drugs Unknown Current medications: (Selected) Inpatient Medications Ordered Sodium Chloride 0.9% IV Ana Cristina 1000 mL 1,000 mL: 1,000 mL, IV, 20 mL/hr, Routine, Start date 12/19/24 7:14:00 EDT, 50 hour(s), Total volume (mL): 1,000, 73.4 kg, 1.75, m2 Zero Hour: Day of Tx Zero Hour: Day of Tx Zero Hour: Day of Tx Zero Hour: Day of Tx Zero Hour: Day of Tx Zero Hour: Day of Tx Zero Hour: Day of Tx Zero Hour: Day of Tx Zero Hour: Day of Tx Zero Hour: Day of Tx Zero Hour: Day of Tx Future Zero Hour: Day of Tx Zero Hour: Day of Tx Zero Hour: Day of Tx Zero Hour: Day of Tx Zero Hour: Day of Tx Zero Hour: Day of Tx Zero Hour: Day of Tx Zero Hour: Day of Tx Zero Hour: Day of Tx Zero Hour: Day of Tx Zero Hour: Day of Tx Zero Hour: Day of Tx Zero Hour: Day of Tx Zero Hour: Day of Tx Zero Hour: Day of Tx Zero Hour: Day of Tx Zero Hour: Day of Tx Zero Hour: Day of Tx Zero Hour: Day of Tx Zero Hour: Day of Tx Zero Hour: Day of Tx Zero Hour: Day of Tx Zero Hour: Day of Tx Zero Hour: Day of Tx cyanocobalamin (DoT): 1,000 mcg = 1 mL, Injection, IntraMuscular, Day of Tx, Routine, Start date 09/05/24 cyanocobalamin (DoT): 1,000 mcg = 1 mL, Injection, IntraMuscular, Day of Tx, Routine, Start date 09/11/25 cyanocobalamin (DoT): 1,000 mcg = 1 mL, Injection, IntraMuscular, Day of Tx, Routine, Start date 10/03/24 cyanocobalamin (DoT): 1,000 mcg = 1 mL, Injection, IntraMuscular, Day of Tx, Routine, Start date 10/09/25 cyanocobalamin (DoT): 1,000 mcg = 1 mL, Injection, IntraMuscular, Day of Tx, Routine, Start date 10/31/24 cyanocobalamin (DoT): 1,000 mcg = 1 mL, Injection, IntraMuscular, Day of Tx, Routine, Start date 11/06/25 cyanocobalamin (DoT): 1,000 mcg = 1 mL, Injection, IntraMuscular, Day of Tx, Routine, Start date 11/28/24 cyanocobalamin (DoT): 1,000 mcg = 1 mL, Injection, IntraMuscular, Day of Tx, Routine, Start date 12/26/24 cyanocobalamin (DoT): 1,000 mcg = 1 mL, Injection, IntraMuscular, Day of Tx, Routine, Start date 01/02/25 cyanocobalamin (DoT): 1,000 mcg = 1 mL, Injection, IntraMuscular, Day of Tx, Routine, Start date 01/23/25 cyanocobalamin (DoT): 1,000 mcg = 1 mL, Injection, IntraMuscular, Day of Tx, Routine, Start date 01/30/25 cyanocobalamin (DoT): 1,000 mcg = 1 mL, Injection, IntraMuscular, Day of Tx, Routine, Start date 02/20/25 cyanocobalamin (DoT): 1,000 mcg = 1 mL, Injection, IntraMuscular, Day of Tx, Routine, Start date 02/27/25 cyanocobalamin (DoT): 1,000 mcg = 1 mL, Injection, IntraMuscular, Day of Tx, Routine, Start date 03/20/25 cyanocobalamin (DoT): 1,000 mcg = 1 mL, Injection, IntraMuscular, Day of Tx, Routine, Start date 03/27/25 cyanocobalamin (DoT): 1,000 mcg = 1 mL, Injection, IntraMuscular, Day of Tx, Routine, Start date 04/17/25 cyanocobalamin (DoT): 1,000 mcg = 1 mL, Injection, IntraMuscular, Day of Tx, Routine, Start date 04/24/25 cyanocobalamin (DoT): 1,000 mcg = 1 mL, Injection, IntraMuscular, Day of Tx, Routine, Start date 05/15/25 cyanocobalamin (DoT): 1,000 mcg = 1 mL, Injection, IntraMuscular, Day of Tx, Routine, Start date 05/22/25 cyanocobalamin (DoT): 1,000 mcg = 1 mL, Injection, IntraMuscular, Day of Tx, Routine, Start date 06/12/25 cyanocobalamin (DoT): 1,000 mcg = 1 mL, Injection, IntraMuscular, Day of Tx, Routine, Start date 06/19/25 cyanocobalamin (DoT): 1,000 mcg = 1 mL, Injection, IntraMuscular, Day of Tx, Routine, Start date 07/17/25 cyanocobalamin (DoT): 1,000 mcg = 1 mL, Injection, IntraMuscular, Day of Tx, Routine, Start date 08/08/24 cyanocobalamin (DoT): 1,000 mcg = 1 mL, Injection, IntraMuscular, Day of Tx, Routine, Start date 08/14/25 Prescriptions Prescribed B12: B12, See Instructions, 10 packet(s), 3, IntraMuscular, [employer] #[employer], Supply, 151, cm, 07/11/24 14:31:00 EST, Height/Length Dosing, 69.9, kg, 07/11/24 14:31:00 EST, Weight Dosing B12: B12, See Instructions, 3 kit(s), 4, dispense quantity sufficient for IM B12 injections: 3 mL syringes and 1 inch/23 gau (more content not included)... [facility]:Result Comment: Electronically Signed By: Charley GUY, Juan Pablo Hernandez\.br\Date and Time Signed: 12/19/2510:09 EDT 11-15-2024 NoteUT Cardiology - [facility] Subjective Johanna Macdonald is a 69 y.o. year old female patient being seen for 6 mo follow up. Patient states if she lays on left side she gets sharp pains in the middle of her chest. Complains of occasional chest pain and SOB with and without activity. Patient states she had noticed some leg swelling, mostly her left leg. 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 Patient Active Problem List Diagnosis Angina pectoris Chronic obstructive lung disease (CMS/HCC) Conduction disorder of the heart Coronary atherosclerosis Dyspnea Well adult health check Essential hypertension First degree atrioventricular block Generalized pain Diaphragmatic hernia Type 2 diabetes mellitus without complication (CMS/HCC) Wound seroma Anemia Asthma Bronchiectasis (CMS/HCC) Bronchitis GERD with esophagitis Heart failure (CMS/HCC) Hypoxemia Pulmonary hypertension (CMS/HCC) Steatohepatitis, non-alcoholic Systolic murmur Vitamin D3 deficiency Blister of hand Osteopenia Chronic respiratory failure with hypoxia (CMS/HCC) Chronic systolic heart failure (CMS/HCC) Fatigue Shoulder pain, right Thrombocytosis Abdominal pain, right lower quadrant Acute on chronic heart failure with preserved ejection fraction (HFpEF) (CMS/HCC) Acute post-operative pain B12 deficiency Cough GERD (gastroesophageal reflux disease) Groin pain, chronic, right HLD (hyperlipidemia) Hospital discharge follow-up Insomnia Malabsorption of iron BMI 31.0-31.9,adult Open wound of anterior abdominal wall Pleural effusion S/P repair of ventral hernia Supplemental oxygen dependent Vertigo Nonsmoker Rib pain on right side Tobacco user Family History Problem Relation Name Age of Onset Heart disease Mother Cancer Father Coronary artery disease Brother Other (CABG) Brother Social History Tobacco Use Smoking status: Every Day Current packs/day: 1.50 Types: Cigarettes Smokeless tobacco: Never Substance Use Topics Alcohol use: Never HPI Johanna is a 69-year-old woman who is seen in follow up on CAD and hypertension. In 2015 she was investigated with cardiac cath because of chest pain and abnormal stress test. At that time cath showed mild 2 vessel disease. She had a NSTEMI and underwent cath and PCI with RACHEL to the RCA on 07/31/2018. In February 2019 she underwent another cardiac catheterization due to chest pain and abnormal stress test and this showed nonobstructive disease. She continues to smoke. She has COPD and is on home oxygen. At visit of 02/24/2019, she mentioned that she was having chest discomfort and shortness of breath. I checked a stress test on 02/28/2019 and this showed evidence of inferior and inferoseptal julio-infarct ischemia. LVEF was 65 percent. I proceeded with cardiac catheterization on 03/02/2019 and this showed nonobstructive disease. Medical therapy was recommended. Her isosorbide has been cut back to 30 mg daily as she felt better with that. Plavix was stopped 04/2020. At visit of 12/08/2021 she complained of symptoms of possible angina. I checked a stress test and this was negative. In June 2022 she was having lung and bowel issues and was admitted to [facility]. During that admission she had an episode of chest pain. She reports that an ECG was done that was negative. At a prior visit I had increased imdur to 60 mg daily but she did not tolerate it due to side effects, she is currently on 30 mg daily. In 2022 she evaluated in our clinic because of symptoms of angina. An echocardiogram showed reduced ejection fraction at 40% consistent with acute systolic heart failure. Her stress test showed an ejection fraction of 44% with no ischemia. She was maximized on medical therapy and referred for cardiac catheterization on 02/17/2023 that showed nonobstructive coronary artery disease. She was recommended medical therapy. she previously has not started to take Entresto due to fear of side effects that she has seen on TV. At visit of 03/17/2023 I started her on Farxiga and spironolactone and asked her to stop furosemide and potassium. She did not do that. At visit of 07/27/2023 I asked her to stop furosemide and potassium and start Entresto. She finally did that in March 2024. In March 2024 she was admitted to [facility] for abdominal hernia surgery. Echocardiogram during that admission showed an LV ejection fraction of 51%. Today she reports that she has been having chest pain located in the left side and the center of the chest when she lays on her left side. She has to immediately turn to the other side and the pain goes away. No other chest pain outside of that. She has chronic shortness of breath, NYHA class II-III which she relates to her history of smoking. No lower extremity edema. She has occasional palpitations. Review of Systems Constitutional: Positive for malaise/fa (more content not included)...[facility]03-24[facility]25 NoteOncology Progress Note Chief Complaint Follow up on anemia and lab results. Pt states if needed she is willing to do B- 12 injections once a month this time. Pt states sometimes her BM are black and smells bad . this has happened about the last 4-5 times. Diagnoses 1. Other iron deficiency anemia (D50.9: Iron deficiency anemia, unspecified) 2. Malabsorption of iron (K90.9: Intestinal malabsorption, unspecified) Oncological History/ROS/PE/Assessment and Plan Chief Complaint Thrombocytosis, anemia; go over results. Iron def anemia. B12 deficiency. History of Present Illness Johanna is 69-year-old nice lady with history of right inguinal hernia, COPD on oxygen intermittentlyat home, type 2 diabetes mellitus, chronic smoking-related cough, who smoked 1 to 1-1/2 pack/day for 42 years, and arthritis who was sent from her primary care physician to our hematology office to be evaluated for thrombocytosis with a platelet count of 508,000- 539,000 as per labs done since May 2023 through December 2023. Labs also showed microscopic anemia with hemoglobin of 8.9. Her iron studies were low consistent with ferritin of 5. The details of the labs are as follows: Labs on 12/28/2023 revealed WBC of 8.2, hemoglobin 8.9, MCV 70.2 which is low, MCH is low 21.8, MCHCis low at 31.0. RDW is high 17.2% platelet is a little high at 538,000. Has been mildly elevated 08523 39,000 since May 2023. WBC differential is normal. Iron is low at 21. Transferrin 328. TIBC is high 459. Ferritin is low 5 only. The folate is 20.6 and the B12 is low normal at 251. She stated she had a colonoscopy and EGD about 3 years ago in [place] by a visiting doctor from [place] but he told her that he was not able to see all the part of the colonoscopy therefore he could not rule out malignancy of the colon at that point. Patient does not remember if she was told to have it repeated. She has not seen GI since then. She denies any rectal bleeding or melena but she tried oral iron multiple times and every time she tries she has nausea and burping and indigestion. She denies any gross hematuria and denies any bleeding from any other sources. She eats red meat only once every 2 weeks. She denied being vegetarian. She smokes 1 and half pack per day for 42 years. 03/28/2024: She is here for the results of her labs done after she received 3 doses of IV iron infusion. She did not tolerate the sublingual B12 as she felt dizzy and pressure in her head and behind her eyes andin her hip as well after she got 1 sublingual B12. She still feeling tired and not much of energy but denies any chest pain or shortness of breath or. Occasionally she feels dizziness. 03/20/2024 repeated labs after she received 3 doses of IV iron infusion end of January 2024 again revealed improvement in hemoglobin and a platelet count. Her hemoglobin became 11.2 up from 8.9 and a platelet 453 down from 538. Her MCV still low at 71.9 and the white blood cell count is normal. Iron studies revealed improving but still low iron saturation to 17%. And iron of 62 with TIBC 317 down [id number]. Ferritin improved from 5 and became now 60. The B12 still low 251 and the folate is normal 14.7. 07/11/24: Patient is here for 3 months follow up for history for FRANCISCO, B12 deficiency and also thrombocytosis that was attributed to FRANCISCO. She is getting B12 Im injections onc a month and she did not wan to retry SL or oral B12 due to ear pressure feling form oral B12. - Labs on 06/13/2024 revealed resolved anemia as her hemoglobin improved to 13.4 from 11.2 and from8.9 in the last 6 months. WBC and platelet counts are normal and platelet is down to 393. Iron studies revealed iron saturation 21% slightly improved compared with before with iron 56 normal TIBC 272normal and ferritin 221 with B12 270 still low. 14 point systems were reviewed and are negative. Review of Systems General: Patient denied fevers or headaches or dizziness. Positive for severe fatigue and shortnessof breath with mild exertion. Lymphatic: No enlarged lymphadenopathy. Cardiovascular: Patient denied CP, SOB or leg edema. Respiratory: no cough or SOB or hemoptysis. Positive for shortness of breath with mild exertion. GI: No nausea or vomiting or diarrhea or constipation or rectal bleeding or emesis or melena. : no gross hematuria or dysuria or frequency currently. Extremities: No edema of the lower extremities. Hematological: No focal masses anywhere and no easy bruising or bleeding tendency. Musculoskeletal: No deformities of the joints or the spine. Neurological: no vision changes or weakness or sensory changes. Physical Exam ECOG PS 1. General: alert, no acute distress HENMT: Normocephalic, atraumatic. Neck: supple and no LAP or thyromegaly. Cardiovascular: regular rate and rhythm, No murmurs Respiratory: Lungs CTA, respirations non labored. Abdomen: Soft nontender nondistended without hepatosplenomegaly or masses clinically. Extremities: no deformity, no edema. (more content not included)...[facility] NotePatient Education Nutrition BMI for Adults Body mass index (BMI) is a number found using a person's weight and height. BMI can help tell how much of a person's weight is made up of fat. BMI does not measure body fat directly. It is used instead of tests that directly measure body fat, which can be difficult and expensive. What are BMI measurements used for? BMI is useful to: ??? Find out if your weight puts you at higher risk for medical problems. ??? Help recommend changes, such as in diet and exercise. This can help you reach a healthy weight.BMI screening can be done again to see if these changes are working. How is BMI calculated? Your height and weight are measured. The BMI is found from those numbers. This can be done with [place] or metric measurements. Note that charts and online BMI calculators are available to help you findyour BMI quickly and easily without doing these calculations. To calculate your BMI in [place] measurements: 1. Measure your weight in pounds (lb). 2. Multiply the number of pounds by 703. ??? So, for an adult who weighs 150 lb, multiply that number by 703: 150 x 703, which equals 105,450. 3. Measure your height in inches. Then multiply that number by itself to get a measurement called inches squared. ??? So, for an adult who is 70 inches tall, the inches squared measurement is 70 inches x 70 inches, which equals 4,900 inches squared. 4. Divide the total from step 2 (number of lb x 703) by the total from step 3 (inches squared): 105,450 ? 4,900 = 21.5. This is your BMI. To calculate your BMI in metric measurements: 1. Measure your weight in kilograms (kg). ??? For this example, the weight is 70 kg. 2. Measure your height in meters (m). Then multiply that number by itself to get a measurement called meters squared. ??? So, for an adult who is 1.75 m tall, the meters squared measurement is 1.75 m x 1.75 m, whichequals 3.1 meters squared. 3. Divide the number of kilograms (your weight) by the meters squared number. In this example: 70 ?3.1 = 22.6. This is your BMI. What do the results mean? BMI charts are used to see if you are underweight, normal weight, overweight, or obese. The following guidelines will be used: ??? Underweight: BMI less than 18.5. ??? Normal weight: BMI between 18.5 and 24.9. ??? Overweight: BMI between 25 and 29.9. ??? Obese: BMI of 30 or above. BMI is a tool and cannot diagnose a condition. Talk with your health care provider about what your BMI means for you. Keep these notes in mind: ??? Weight includes fat and muscle. Someone with a muscular build, such as an athlete, may have a BMI that is higher than 24.9. In cases like these, BMI is not a correct measure of body fat. ??? If you have a BMI of 25 or higher, your provider may need to do more testing to find out if excess body fat is the cause. ??? BMI is measured the same way for males and females. Females usually have more body fat than males of the same height and weight. Where to find more information For more information about BMI, including tools to quickly find your BMI, go to: ??? Centers for Disease Control and Prevention: cdc.gov ??? [place] Heart Association: heart.org ??? National Heart, Lung, and Blood [place]: nhlbi.nih.gov This information is not intended to replace advice given to you by your health care provider. Make sure you discuss any questions you have with your health care provider. Document Revised: 04/22/2023 Document Reviewed: 04/15/2023 [employer] Patient Education ? 2023 [employer].[facility] 07-11-2024 NoteOncology Progress Note Chief Complaint Thrombocytosis; no questions or concerns. Oncological History/ROS/PE/Assessment and Plan Chief Complaint Thrombocytosis, anemia; go over results. Iron def anemia. B12 deficiency. History of Present Illness Johanna is 69-year-old nice lady with history of right inguinal hernia, COPD on oxygen intermittentlyat home, type 2 diabetes mellitus, chronic smoking-related cough, who smoked 1 to 1-1/2 pack/day for 42 years, and arthritis who was sent from her primary care physician to our hematology office to be evaluated for thrombocytosis with a platelet count of 508,000- 539,000 as per labs done since May 2023 through December 2023. Labs also showed microscopic anemia with hemoglobin of 8.9. Her iron studies were low consistent with ferritin of 5. The details of the labs are as follows: Labs on 12/28/2023 revealed WBC of 8.2, hemoglobin 8.9, MCV 70.2 which is low, MCH is low 21.8, MCHCis low at 31.0. RDW is high 17.2% platelet is a little high at 538,000. Has been mildly elevated 29196 39,000 since May 2023. WBC differential is normal. Iron is low at 21. Transferrin 328. TIBC is high 459. Ferritin is low 5 only. The folate is 20.6 and the B12 is low normal at 251. She stated she had a colonoscopy and EGD about 3 years ago in [place] by a visiting doctor from [place] but he told her that he was not able to see all the part of the colonoscopy therefore he could not rule out malignancy of the colon at that point. Patient does not remember if she was told to have it repeated. She has not seen GI since then. She denies any rectal bleeding or melena but she tried oral iron multiple times and every time she tries she has nausea and burping and indigestion. She denies any gross hematuria and denies any bleeding from any other sources. She eats red meat only once every 2 weeks. She denied being vegetarian. She smokes 1 and half pack per day for 42 years. 03/28/2024: She is here for the results of her labs done after she received 3 doses of IV iron infusion. She did not tolerate the sublingual B12 as she felt dizzy and pressure in her head and behind her eyes andin her hip as well after she got 1 sublingual B12. She still feeling tired and not much of energy but denies any chest pain or shortness of breath or. Occasionally she feels dizziness. 03/20/2024 repeated labs after she received 3 doses of IV iron infusion end of January 2024 again revealed improvement in hemoglobin and a platelet count. Her hemoglobin became 11.2 up from 8.9 and a platelet 453 down from 538. Her MCV still low at 71.9 and the white blood cell count is normal. Iron studies revealed improving but still low iron saturation to 17%. And iron of 62 with TIBC 317 down [id number]. Ferritin improved from 5 and became now 60. The B12 still low 251 and the folate is normal 14.7. 07/11/24: Patient is here for 3 months follow up for history for FRANCISCO, B12 deficiency and also thrombocytosis that was attributed to FRANCISCO. She is getting B12 Im injections onc a month and she did not wan to retry SL or oral B12 due to ear pressure feling form oral B12. - Labs on 06/13/2024 revealed resolved anemia as her hemoglobin improved to 13.4 from 11.2 and from8.9 in the last 6 months. WBC and platelet counts are normal and platelet is down to 393. Iron studies revealed iron saturation 21% slightly improved compared with before with iron 56 normal TIBC 272normal and ferritin 221 with B12 270 still low. 14 point systems were reviewed and are negative. Review of Systems General: Patient denied fevers or headaches or dizziness. Positive for severe fatigue and shortnessof breath with mild exertion. Lymphatic: No enlarged lymphadenopathy. Cardiovascular: Patient denied CP, SOB or leg edema. Respiratory: no cough or SOB or hemoptysis. Positive for shortness of breath with mild exertion. GI: No nausea or vomiting or diarrhea or constipation or rectal bleeding or emesis or melena. : no gross hematuria or dysuria or frequency currently. Extremities: No edema of the lower extremities. Hematological: No focal masses anywhere and no easy bruising or bleeding tendency. Musculoskeletal: No deformities of the joints or the spine. Neurological: no vision changes or weakness or sensory changes. Physical Exam ECOG PS 1. General: alert, no acute distress HENMT: Normocephalic, atraumatic. Neck: supple and no LAP or thyromegaly. Cardiovascular: regular rate and rhythm, No murmurs Respiratory: Lungs CTA, respirations non labored. Abdomen: Soft nontender nondistended without hepatosplenomegaly or masses clinically. Extremities: no deformity, no edema. Lymph system: Currently she has no lymphadenopathy in her cervical area subclavian area/axillary areas and inguinal areas bilaterally. Neurological: oriented x 4, LOC appropriate for age, CN II-XII intact, motor strength equal & normal bilaterally, sensation normal bilaterally, speech normal Skin: No rash. Psychiatric: Normal mood a (more content not included)...[facility]10-03-2024 Hospital Discharge instructions Follow Up Care 05/18/2024 10:51:20 With:Marta GUY, Marianne Carney, MED, ONC Address: When: Unknown Comments:Change IM B12 form monthly to every other week , she wants to do it at Dr Conway office. Recheck labsincluding CBC with iron studies and B12 and folate in 4 months and see her then. [facility] 10-02-2024 NoteUT Cardiology - [facility] [place] Macdonald is a 69 y.o. year old female patient being seen for 10 mo follow up CAD, chronic systolic heart failure, and hypertension. She has stopped furosemide and potassium and has started Entresto (in Mar 2024). She says this makes her very sleepy and tired. Had hernia surgery in Mar at [facility]. Patient Active Problem List Diagnosis Angina pectoris (CMS/HCC) Chronic obstructive lung disease (CMS/HCC) Conduction disorder of the heart Coronary atherosclerosis Dyspnea Well adult health check Essential hypertension First degree atrioventricular block Generalized pain Diaphragmatic hernia Type 2 diabetes mellitus without complication (CMS/HCC) Wound seroma Anemia Asthma Bronchiectasis (CMS/HCC) Bronchitis GERD with esophagitis Heart failure (CMS/HCC) Hypoxemia Pulmonary hypertension (CMS/HCC) Steatohepatitis, non-alcoholic Systolic murmur Vitamin D3 deficiency Blister of hand Osteopenia Chronic respiratory failure with hypoxia (CMS/HCC) Chronic systolic heart failure (CMS/HCC) Fatigue Shoulder pain, right Thrombocytosis Abdominal pain, right lower quadrant Acute on chronic heart failure with preserved ejection fraction (HFpEF) (CMS/HCC) Acute post-operative pain B12 deficiency Cough GERD (gastroesophageal reflux disease) Groin pain, chronic, right HLD (hyperlipidemia) Hospital discharge follow-up Insomnia Malabsorption of iron BMI 31.0-31.9,adult Open wound of anterior abdominal wall Pleural effusion S/P repair of ventral hernia Supplemental oxygen dependent Vertigo Family History Problem Relation Name Age of Onset Coronary artery disease Brother Other (CABG) Brother Social History Tobacco Use Smoking status: Every Day Packs/day: 1.5 Types: Cigarettes Smokeless tobacco: Never Substance Use Topics Alcohol use: Never HPI Johanna is a 69-year-old woman who is seen in follow up on CAD and hypertension. In 2015 she was investigated with cardiac cath because of chest pain and abnormal stress test. At that time cath showed mild 2 vessel disease. She had a NSTEMI and underwent cath and PCI with RACHEL to the RCA on 07/31/2018. In February 2019 she underwent another cardiac catheterization due to chest pain and abnormal stress test and this showed nonobstructive disease. She continues to smoke. She has COPD and is on home oxygen. At visit of 02/24/2019, she mentioned that she was having chest discomfort and shortness of breath. I checked a stress test on 02/28/2019 and this showed evidence of inferior and inferoseptal julio-infarct ischemia. LVEF was 65 percent. I proceeded with cardiac catheterization on 03/02/2019 and this showed nonobstructive disease. Medical therapy was recommended. Her isosorbide has been cut back to 30 mg daily as she felt better with that. Plavix was stopped 04/2020. At visit of 12/08/2021 she complained of symptoms of possible angina. I checked a stress test and this was negative. In June 2022 she was having lung and bowel issues and was admitted to [facility]. During that admission she had an episode of chest pain. She reports that an ECG was done that was negative. At a prior visit I had increased imdur to 60 mg daily but she did not tolerate it due to side effects, she is currently on 30 mg daily. In 2022 she evaluated in our clinic because of symptoms of angina. An echocardiogram showed reduced ejection fraction at 40% consistent with acute systolic heart failure. Her stress test showed an ejection fraction of 44% with no ischemia. She was maximized on medical therapy and referred for cardiac catheterization on 02/17/2023 that showed nonobstructive coronary artery disease. She was recommended medical therapy. she previously has not started to take Entresto due to fear of side effects that she has seen on TV. At visit of 03/17/2023 I started her on Farxiga and spironolactone and asked her to stop furosemide and potassium. She did not do that. At visit of 07/27/2023 I asked her to stop furosemide and potassium and start Entresto. She finally did that in March 2024. In March 2024 she was admitted to [facility] for abdominal hernia surgery. Echocardiogram during that admission showed an LV ejection fraction of 51%. She has been recovering from the surgery. No chest pain. She has chronic shortness of breath, NYHA class II-III which she relates to her history of smoking. No lower extremity edema. She has occasional palpitations. Review of Systems Constitutional: Positive for malaise/fatigue. Cardiovascular: Positive for dyspnea on exertion, leg swelling (intermittent) and palpitations ( in neck ). Respiratory: Positive for cough, shortness of breath, sleep disturbances due to breathing, snoring and wheezing. Musculoskeletal: Positive for arthritis and back pain. All other systems reviewed and are negative. Objective Visit Vitals B (more content not included)...[facility]09-23-2024 NoteProgress Note - Pharmacy Patient had 1 of 3 scheduled iron infusions before she was to have hernia repair at [facility]. While at [facility] she had 4 doses of ferric gluconate 125 mg each for a total 500 mg. For this reason she should probably only get one of the 2 scheduled Venofer doses remaining. I have moved her appoitnemt to 05/08 if she is able and cancelled the third and final infusion. but she will likely receiving one more then labs and follow [facility] scheduled[facility] NotePatient Education Nutrition BMI for Adults Body mass index (BMI) is a number found using a person's weight and height. BMI can help tell how much of a person's weight is made up of fat. BMI does not measure body fat directly. It is used instead of tests that directly measure body fat, which can be difficult and expensive. What are BMI measurements used for? BMI is useful to: ? Find out if your weight puts you at higher risk for medical problems. ? Help recommend changes, such as in diet and exercise. This can help you reach a healthy weight. BMI screening can be done again to see if these changes are working. How is BMI calculated? Your height and weight are measured. The BMI is found from those numbers. This can be done with U.S. or metric measurements. Note that charts and online BMI calculators are available to help you findyour BMI quickly and easily without doing these calculations. To calculate your BMI in [place] measurements: 1. Measure your weight in pounds (lb). 2. Multiply the number of pounds by 703. ? So, for an adult who weighs 150 lb, multiply that number by 703: 150 x 703, which equals 105,450. 3. Measure your height in inches. Then multiply that number by itself to get a measurement called inches squared. ? So, for an adult who is 70 inches tall, the inches squared measurement is 70 inches x 70 inches, which equals 4,900 inches squared. 4. Divide the total from step 2 (number of lb x 703) by the total from step 3 (inches squared): 105,450 ? 4,900 = 21.5. This is your BMI. To calculate your BMI in metric measurements: 1. Measure your weight in kilograms (kg). ? For this example, the weight is 70 kg. 2. Measure your height in meters (m). Then multiply that number by itself to get a measurement called meters squared. ? So, for an adult who is 1.75 m tall, the meters squared measurement is 1.75 m x 1.75 m, which equals 3.1 meters squared. 3. Divide the number of kilograms (your weight) by the meters squared number. In this example: 70 ?3.1 = 22.6. This is your BMI. What do the results mean? BMI charts are used to see if you are underweight, normal weight, overweight, or obese. The following guidelines will be used: ? Underweight: BMI less than 18.5. ? Normal weight: BMI between 18.5 and 24.9. ? Overweight: BMI between 25 and 29.9. ? Obese: BMI of 30 or above. BMI is a tool and cannot diagnose a condition. Talk with your health care provider about what your BMI means for you. Keep these notes in mind: ? Weight includes fat and muscle. Someone with a muscular build, such as an athlete, may have a BMIthat is higher than 24.9. In cases like these, BMI is not a correct measure of body fat. ? If you have a BMI of 25 or higher, your provider may need to do more testing to find out if excess body fat is the cause. ? BMI is measured the same way for males and females. Females usually have more body fat than malesof the same height and weight. Where to find more information For more information about BMI, including tools to quickly find your BMI, go to: ? Centers for Disease Control and Prevention: cdc.gov ? [place] Heart Association: heart.org ? National Heart, Lung, and Blood [place]: nhlbi.nih.gov This information is not intended to replace advice given to you by your health care provider. Make sure you discuss any questions you have with your health care provider. Document Revised: 04/22/2023 Document Reviewed: 04/15/2023 [employer] Patient Education ? 2023 [employer].[facility] 04-21-2024 History of Present illness Narrative* María Guzman APRN.JET MECHANIC - 04/21/2024 11:00 AM EDT [facility] Clinic Date: April 21, 2024 Johanna Macdonald 69 year old female CHIEF COMPLAINT: Patient presents for LICHA drain removal. HPI: Here for LICHA drain removal after robotic converted to open bilateral TAR, incisional hernia repair, implantation of 30 cm x 30 c Prolene mesh and excision of old abdominal wall mesh on 04/07/[address] Orourke. Patient's inpatient course was complicated by ABLA requiring 3 total units of pRBCs, transfer to the SICU, antibiotics for concern for PNA and cardiology consult for CHF management. Patientis to continue following with home cardiology for management and refills on Entresto. Has appointment with skidder driver early May. Patient has one LICHA drain in place with serosanguinous fluid and output of <30 ml/day. Pain: Occasional pains. Tylenol PRN. Wearing abdominal binder daily. Incisional Drainage: Denies Incisional Erythema: Denies Fever/Chills: Denies Increased Heart Rate: Denies Constipation: Denies Diarrhea: Denies Nausea/Vomiting: Denies Difficulty Voiding: Denies Decreased Urine Output: Denies Shortness of Breath: Denies Cough / Wheezing: Denies Calf/Thigh pain or swelling: Denies Current Diet: Low-fiber GI soft Present Activity level: Walking, some daily activities (dishes, cooking) Surgery Date and Procedure: 04/07/2024 1. Robotic converted to open right myofascial advancement flap 2. Open left myofascial advancement flap 3. Repair of recurrent incarcerated incisional hernia 4. Implantation of 30 cm x 30 cm Prolene mesh 5. Excision of old abdominal wall mesh Randomized Controlled Trial: Robotic versus Open Ventral Hernia Repair (ROVHR) Trial Current Medications: Current Outpatient Medications Medication Sig Dispense Refill dapagliflozin propanediol (FARXIGA) 10 mg tablet Take 1 tablet by mouth daily with breakfast. sacubitril-valsartan (ENTRESTO) 24-26 mg tablet Take 1 tablet by mouth two times a day. 60 tablet 0 metFORMIN (GLUCOPHAGE) 500 mg tablet Take 1 tablet every day by oral route for 90 days. ipratropium-albuterol (DUONEB) 0.5 mg-3 mg(2.5 mg base)/3 mL nebu INHALE 3 (THREE) mls BY MOUTH viaNEBULIZER FOUR TIMES DAILY atorvastatin (LIPITOR) 80 mg tablet Take 1 tablet by mouth daily at bedtime. potassium chloride (K-TAB) 10 mEq tablet Take 1 tablet by mouth every 48 hours. esomeprazole (NEXIUM) 40 mg capsule Take 40 mg by mouth two times a day. isosorbide mononitrate ER (IMDUR) 30 mg 24 hr tablet Take 1 tablet by mouth every morning. aspirin, enteric coated (ASPIRIN, ENTERIC COATED) 81 mg EC tablet in the morning. amLODIPine (NORVASC) 10 mg tablet Take 10 mg by mouth once daily. furosemide (LASIX) 40 mg tablet Take 40 mg by mouth once daily. No current facility-administered medications for this visit. REVIEW OF SYSTEMS: CONSTITUTIONAL: Patient denies fevers, chills, sweats CARDIOVASCULAR: Patient denies chest pains, palpitations RESPIRATORY: No dyspnea on exertion, no wheezing or cough. GI: No diarrhea. No constipation. No nausea/vomiting. MUSCULOSKELETAL: No new myalgias or arthralgias. DERMATOLOGIC: Patient denies any rashes or skin changes. PHYSICAL EXAM: BP 143/52 Pulse 77 Temp 36.7 C (98.1 F) (Temporal) Ht 149.9 cm (4' 11 ) Wt 77.1 kg (170 lb) BMI 34.34 kg/m GENERAL: No apparent distress. Pt is alert and oriented x3. LUNGS: Lungs clear and equal. No wheezing HEART: Regular rate and rhythm without murmur. No leg edema ABDOMEN: Soft, nontender, and nondistended. Positive bowel sounds. L LICHA drain with serosanguinous fluid. EXTREMITIES: Without any cyanosis, clubbing, rash, lesions or edema. INCISIONS: Clean, dry, intact, well approximated. No s/s of infection. SURGICAL PATHOLOGY: N/A ASSESSMENT/PLAN: 1. Postoperative visit - ICD9: V58.49, ICD10: Z48.89 -Recovering well at post op week 2 -LICHA drain removed without difficulty -December d/c abdominal binder or wear PRN for comfort -Increase activity as tolerated -Plan for follow up in 1 year, CT abd/pel to be completed prior to appointment María Guzman, MSN, [employer]PERVISOR [employer]-JET MECHANIC April 21, 2024 documented in this encounterSelect [facility] NoteHNO ID: [id number] Author: MARÍA GUZMAN APRN.JET MECHANIC Service: ? Author Type: Nurse Practitioner Type: Progress Notes Filed: 04/21/2024 11:42 Note Text: [facility] Clinic Date: April 21, 2024 Johanna E Runion 69 year old female CHIEF COMPLAINT: Patient presents for LICHA drain removal. HPI: Here for LICHA drain removal after robotic converted to open bilateral TAR, incisional hernia repair, implantation of 30 cm x 30 c Prolene mesh and excision of old abdominal wall mesh on 04/07/[address] Orourke. Patient's inpatient course was complicated by ABLA requiring 3 total units of pRBCs, transfer to the SICU, antibiotics for concern for PNA and cardiology consult for CHF management. Patient is to continue following with home cardiology for management and refills on Entresto. Has appointment with skidder driver early May. Patient has one LICHA drain in place with serosanguinous fluid and output of <30 ml/day. Pain: Occasional pains. Tylenol PRN. Wearing abdominal binder daily. Incisional Drainage: Denies Incisional Erythema: Denies Fever/Chills: Denies Increased Heart Rate: Denies Constipation: Denies Diarrhea: Denies Nausea/Vomiting: Denies Difficulty Voiding: Denies Decreased Urine Output: Denies Shortness of Breath: Denies Cough / Wheezing: Denies Calf/Thigh pain or swelling: Denies Current Diet: Low-fiber GI soft Present Activity level: Walking, some daily activities (dishes, cooking) Surgery Date and Procedure: 04/07/2024 1. Robotic converted to open right myofascial advancement flap 2. Open left myofascial advancement flap 3. Repair of recurrent incarcerated incisional hernia 4. Implantation of 30 cm x 30 cm Prolene mesh 5. Excision of old abdominal wall mesh Randomized Controlled Trial: Robotic versus Open Ventral Hernia Repair (ROVHR) Trial Current Medications: Current Outpatient Medications Medication Sig Dispense Refill dapagliflozin propanediol (FARXIGA) 10 mg tablet Take 1 tablet by mouth daily with breakfast. sacubitril-valsartan (ENTRESTO) 24-26 mg tablet Take 1 tablet by mouth two times a day. 60 tablet 0 metFORMIN (GLUCOPHAGE) 500 mg tablet Take 1 tablet every day by oral route for 90 days. ipratropium-albuterol (DUONEB) 0.5 mg-3 mg(2.5 mg base)/3 mL nebu INHALE 3 (THREE) mls BY MOUTH via NEBULIZER FOUR TIMES DAILY atorvastatin (LIPITOR) 80 mg tablet Take 1 tablet by mouth daily at bedtime. potassium chloride (K-TAB) 10 mEq tablet Take 1 tablet by mouth every 48 hours. esomeprazole (NEXIUM) 40 mg capsule Take 40 mg by mouth two times a day. isosorbide mononitrate ER (IMDUR) 30 mg 24 hr tablet Take 1 tablet by mouth every morning. aspirin, enteric coated (ASPIRIN, ENTERIC COATED) 81 mg EC tablet in the morning. amLODIPine (NORVASC) 10 mg tablet Take 10 mg by mouth once daily. furosemide (LASIX) 40 mg tablet Take 40 mg by mouth once daily. No current facility-administered medications for this visit. REVIEW OF SYSTEMS: CONSTITUTIONAL: Patient denies fevers, chills, sweats CARDIOVASCULAR: Patient denies chest pains, palpitations RESPIRATORY: No dyspnea on exertion, no wheezing or cough. GI: No diarrhea. No constipation. No nausea/vomiting. MUSCULOSKELETAL: No new myalgias or arthralgias. DERMATOLOGIC: Patient denies any rashes or skin changes. PHYSICAL EXAM: BP 143/52 Pulse 77 Temp 36.7 ?C (98.1 ?F) (Temporal) Ht 149.9 cm (4' 11 ) Wt 77.1 kg (170 lb) BMI 34.34 kg/m? GENERAL: No apparent distress. Pt is alert and oriented x3. LUNGS: Lungs clear and equal. No wheezing HEART: Regular rate and rhythm without murmur. No leg edema ABDOMEN: Soft, nontender, and nondistended. Positive bowel sounds. L LICHA drain with serosanguinous fluid. EXTREMITIES: Without any cyanosis, clubbing, rash, lesions or edema. INCISIONS: Clean, dry, intact, well approximated. No s/s of infection. SURGICAL PATHOLOGY: N/A ASSESSMENT/PLAN: 1. Postoperative visit - ICD9: V58.49, ICD10: Z48.89 -Recovering well at post op week 2 -LICHA drain removed without difficulty -December d/c abdominal binder or wear PRN for comfort -Increase activity as tolerated -Plan for follow up in 1 year, CT abd/pel to be completed prior to appointment María Guzman, MSN, SUPERVISOR SHIPPING ROOM-JET MECHANIC [facility] Nurse Note* Jayashree Kirkland MA - 04/21/2024 10:18 AM EDT What is the reason for your visit today? Post op Who is your referring physician? Dr. Guzman Are you having poor oral intake? NO Have you had unintentional weight loss of 15 lbs/7 Kg in the last 3-6 months? NO Bowels: regular Wound: clean & dry Temperature: No Drains: Yes licha [facility]09-06-2024 Nurse Note* Jayashree Kirkland MA - 04/21/2024 10:18 AM EDT What is the reason for your visit today? Post op Who is your referring physician? Dr. Guzman Are you having poor oral intake? NO Have you had unintentional weight loss of 15 lbs/7 Kg in the last 3-6 months? NO Bowels: regular Wound: clean & dry Temperature: No Drains: Yes licha [facility] NoteHNO ID: [id number] Author: ISABEL CONTRERAS RN Service: Care Management Author Type: Registered Nurse Type: Care Mgt Progress Note Filed: 04/13/2024 14:14 Note Text: CARE MANAGEMENT DISCHARGE NOTE SERVICE DATE: April 13, 2024 SERVICE TIME: 1403 Admission Date: 04/07/2024 LOS: 6 days Discharge Arrangement Discharge Arrangement: Home with Home Health Services Arranged Medical Services: Skilled Home Health Care Type: Physical Therapy, Occupational Therapy Provider Name: [facility] Caregiver Assessment Caregiver is ready, willing and able to meet the patient's needs as recommended by the inter-professional team: Yes Name of Caregiver: Puma Transportation Arrangements Transportation Arrangements: Car Date of Trip: 04/13/24 Time of Trip: (TBD) Destination: home Handoff Communication: Additional Information: n/a Per primary team patient medically clear to discharge home today. This junior technical writer touched base with patient at bedside who called spouse to remind him to bring portable oxygen for transport. Patient [facility] [phone] SOC 24-48 hours after discharge. This junior technical writer updated patient and nurse on plan. This junior technical writer sent d/c paperwork to [facility] agency. TCC/SW to follow. Discharge Information Row Name Admission (Current) from 04/07/2024 [facility] Start of Care -- SOC 24-48 hours after discharge Please contact case management for any changes in skilled needs. Thank you SIGNATURE: Isabel Contreras RN PATIENT NAME: Johanna Macdonald DATE: April 13, 2024 TIME: 2:03 PM CONTA[facility]: [id number] NoteHNO ID: [id number] Author: JOSEP PERALTA APRN.CNP Service: Critical Care Author Type: Nurse Practitioner Type: Progress Notes Filed: 04/13/2024 14:32 Note Text: Surgical ICU Progress Note Service Date: April 13, 2024 Service Time: 1030 Admission Date: 04/07/2024 Hospital Day: # 6 6 Days Post-Op CARE COORDINATION NOTE Indication for Surgery: Recurrent Ventral Incisional Hernia Important/Relevant PMH/PSH: COPD on 2L NC at home most of the time , CAD s/p PCI in 2017 and 2022 (follows with Dr. Gomes), HTN on home amlodipine, HLD on Crestor, CHF on home lasix, GERD on home PPI, T2DM on metformin NOT on insulin. PSH: incisional hernia repair followed by mesh excision for infected mesh I 2007, repeat incisional hernia repair. Hx of MRSA infection. Preoperative Hospital Course: (narrative or log of major events) This is a 69yo female that presented for surgical management of ventral incisional hernia. Underwent robotic converted to open ventral hernia repair on 04/07. AMET from floor on 04/08 for hypotension and 1st degree heart block. Airway Difficulty: Not intubated for procedure Difficult Central Access: No Recent ECHO: Date: 04/09/2024 LVEF: 52% RVF: normal Code Status: Full Chronological List of Surgeries and Major Events (Diagnosis): (Surgeries in bold characters) 04/07/2024: Robotic converted to open ventral hernia repair (converted due to serosal injury) 04/08/2024: AMET to SICU for hypotension and first degree heart block 04/13/24: improved SICU needs - will likely DC home today Major Events within past 24 hours: -back to baseline home O2 -buenrostro removed; ++ void trial -NAEON A/P of Major Active Problems (excluding routine care and common problems): Neuro: Acute PostOperative Pain, insomnia S/p VHR - Current pain control regimen: scheduled tylenol, PRN Oxy - Start Melatonin 3mg HS CV: Hypotension, First Degree Heart Block, LBBB, HF exacerbation, Hx of PCI HoTN on RNF->SICU; now HDS, no vasopressors Diuresed (80mg 04/09) Troponin flat () EKG SR w/1*HB; LBBB ECHO 04/09: EF 52%, grade 1 DD, normal RV; basal inferior segment and basal inferoseptal segment are severely hypokinetic in s/o prior RCA PCI 04/11 Pro BNP: 406->1954 with increased O2 requirements. Got 20 IV lasix overnight 04/12: Pro BNP 4->3026, weight down and O2 requirements back to baseline, HDS. - tolerating - home regimen PO lasix 40mg daily - continue home meds; resumed imdur today, tolerating entresto Resp: Hx of COPD; Acute on Chronic Respiratory Failure, Acute PostOp Pulmonary Insufficiency HTN, HLD, CHF, pleural effusions Baseline 2-3L home O2; back to baseline - Aggressive BPH, PEP, IS, OOBTC - optimized for home - resumed on home regimen GI: Ileus, Postoperative Diet GERD CTAP demonstrated dilated loops of bowel; likely ileus Having BM's on PO diet - GI diet - Continue PPI Renal/FEN: GABINO, Post-surgical -Trend renal indices - Monitor urine output and replete electrolyte as needed - Strict I//O; continue buenrostro (d/c today or tomorrow) - Cont Flomax - avoid nephrotoxins as able Heme: Acute Blood Loss Anemia Transfused 2 PRBC 04/08; 1 PRBC 04/09 Hgb remains stable - Monitor HANDH and s/s of bleeding - Transfuse for hemoglobin < 7 or symptomatic anemia Infectious Disease: CTPE/Chest: negative PE; consolidative opacities, atelectasis v infection; small b/l pleural effusions, upper GGO - completed 3 day course of meropenum Endo: Type II Diabetes Mellitus, Stress Hyperglycemia Home meds: Metformin - BG monitoring, hypoglycemia protocol in place Nutrition: GI diet Daily Plan Summary and Significant Findings or Concerns: -improved -will likely DC home today; pending primary team Barriers to transfer out of ICU: None Disposition: RNF Other Problems I reviewed and/or Managed During This Encounter: Principal Problem: Ventral hernia without obstruction or gangrene (POA: Yes) Active Problems: COPD (chronic obstructive pulmonary disease) (HCC) (POA: Yes) Supplemental oxygen dependent (POA: Yes) CAD (coronary artery disease) (POA: Yes) HTN (hypertension) (POA: Yes) HLD (hyperlipidemia) (POA: Yes) CHF (congestive heart failure) (HCC) (POA: Yes) Type 2 diabetes mellitus without complication, without long-term current use of insulin (HCC) (POA: Yes) Obesity (BMI 30.0-34.9) (POA: Yes) Hypoxia (POA: Yes) Acute post-operative pain (POA: No) S/P repair of ventral hernia (POA: No) Acute on chronic hypoxic respiratory failure (HCC) (POA: No) Pleural effusion (POA: Clinically Undetermined) Acute on chronic heart failure with preserved ejection fraction (HFpEF) ([facility]) (POA: Yes) LBBB (left bundle branch block) (POA: Unknown) Resolved Problems: Shock, during or resulting from a surgical procedure (POA: No) ABLA (acute blood loss anemia) (POA: No) No (more content not included)...[facility]08-29-2024 NoteHNO ID: [id number] Author: ISABEL CONTRERAS RN Service: Care Management Author Type: Registered Nurse Type: Care Mgt Progress Note Filed: 04/13/2024 09:31 Note Text: CARE MANAGEMENT PROGRESS NOTE SERVICE DATE: 04/13/2024 SERVICE TIME: 930 LOS: 6 days IMM Follow Up Copy Given: Yes Copy given to:: Patient Method: In Person SIGNATURE: Isabel Contreras RN PATIENT NAME: Johanna Macdonald DATE: April 13, 2024 TIME: 9:31 AM PAGER/CONTACT #: [id number] NoteHNO ID: [id number] Author: CARMELO BONNER MD Service: General Surgery Author Type: Resident Type: Progress Notes Filed: 04/13/2024 07:33 Note Text: GENERAL SURGERY PROGRESS NOTE Johanna Macdonald [id number] ASSESSMENT AND PLAN Johanna Macdonald is a 69 year old female with PMHx COPD, HTN, HLD, CHF, GERD, T2DM, CAD s/p PCI who is s/p robotic converted to open ventral hernia repair with Dr. Anderson on 04/07/24. On 04/08, patient had AMET called for hypotension and suspected acute blood loss, requiring a total of 3U pRBC, and transferred to SICU. Found to have 1st degree heart block. Patient currently recovering well in SICU. No acute events overnight. Was able to wean oxygen requirement to NC 3L (home requirement 2-3L). Right LICHA drain removed on 04/12. Left LICHA drain in place with stable SS output. She is passing flatus and having BM (non watery, C. Diff negative). Plan: - Neuro: MMPC, on scheduled tylenol and prn dilaudid + oxy. - CV: continue monitor vital signs per SICU. Echo 04/09 EF 52%. Cardiology recs: restart home Lasix PO 40mg daily, start entresto BID, resume farxiga and imdur. Will schedule outpatient FU with cardiology after DC. - Resp: Continue BPH, PEP, IS, home inhalers, methylprednisone 40 BID (end 04/12). Will continue to monitor SpO2 and try to WO O2 to maintain spO2> 88-89%. Desaturation study today 04/13. - FENGI: Continue GIS. Continue PPI. CT on 04/09 showed no obstruction, suggesting ileus. Watery diarrhea resolved, C.Diff PCR negative. Keep Left LICHA x1 SS output. Right LICHA drain was removed 04/12 - Renal: monitor Cr. DC Buenrostro 04/13. Voiding well, restarted home lasix. FU CXR - Endo: SS2 - Heme: s/p 3U pRBC on 04/09, stable Hg 11.7. Lovenox 40 q24 - ID: Merrem discontinued on 04/13 (received 3 day course) - Dispo: Anticipated DC 04/13 vs transfer to [facility], continue PT/OT/RT Patient Active Hospital Problem List: Ventral hernia without obstruction or gangrene Date Noted: 04/07/2024 COPD (chronic obstructive pulmonary disease) ([facility]) Date Noted: 03/21/2024 Supplemental oxygen dependent Date Noted: 03/21/2024 CAD (coronary artery disease) Date Noted: 03/21/2024 HTN (hypertension) Date Noted: 03/21/2024 HLD (hyperlipidemia) Date Noted: 03/21/2024 CHF (congestive heart failure) ([facility]) Date Noted: 03/21/2024 Type 2 diabetes mellitus without complication, without long-term current use of insulin ([facility]) Date Noted: 03/21/2024 Obesity (BMI 30.0-34.9) Date Noted: 04/07/2024 Shock, during or resulting from a surgical procedure Date Noted: 04/08/2024 ABLA (acute blood loss anemia) Date Noted: 04/08/2024 Hypoxia Date Noted: 04/09/2024 Acute post-operative pain Date Noted: 04/10/2024 S/P repair of ventral hernia Date Noted: 04/10/2024 Acute on chronic hypoxic respiratory failure ([facility]) Date Noted: 04/10/2024 Pleural effusion Date Noted: 04/11/2024 Acute on chronic heart failure with preserved ejection fraction (HFpEF) ([facility]) Date Noted: 04/12/2024 SUBJECTIVE: No acute events overnight. Pain well controlled. No nausea or vomiting. Tolerating GIS diet. Passing flatus and having non watery BM OBJECTIVE: BP (!) 144/49 Pulse 80 Temp 37 ?C (98.6 ?F) (Oral) Resp (!) 36 Wt 75.7 kg (166 lb 14.2 oz) SpO2 89% BMI 33.71 kg/m? Body mass index is 33.71 kg/m?. GENERAL: Alert and oriented, no acute distress, cooperative. LUNGS: Non labored breathing. ABDOMEN: soft, non tender, non distended. LICHA x1 Left SS WOUND: clean, dry and intact Labs: CBC, Coags, BMP, Mg, Phos Recent Labs 04/13/24 0104 04/12/24 0006 04/11/24 0024 WBC 15.11* 13.43* 13.44* HB 11.7 10.8* 10.1* HCT 35.8* 32.2* 30.6* PLT 466* 428* 334 INR -- -- 1.1 APTT -- -- 32.5* NA 140 141 137 K 4.2 3.5* 4.2 CHLOR 102 104 105 CO2 25 24 20* BUN 12 12 7 CREAT 0.61 0.65 0.57* GLUC 249* 173* 184* CA 9.0 9.0 8.9 MG 2.0 1.9 2.1 P 3.6 2.5* 2.3* Liver Function, Amylase, AND Lipase Recent Labs 04/12/24 0006 04/11/24 0024 TPROT 6.1* 6.1* ALB 3.6* 3.4* ALT 48* 59* AST 16 22 ALKPHOS 92 94 TBILI 0.4 0.4 I/O past 24h: Intake/Output Summary (Last 24 hours) at 04/13/2024 0724 Last data filed at 04/13/2024 0700 Gross per 24 hour Intake 2354 ml Output 4245 ml Net -1891 ml LDA: Lines, Drains, and Airways Line Duration Arterial Line/Sheath 04/09/24 1138 Left Brachial 3 days Peripheral 04/09/24 1133 Left Arm 18 Gauge 3 days Peripheral 04/10/24 1000 [facility] Right Forearm 20 Gauge 2 days Drain Duration Drain/Tube 04/07/24 1200 [facility] Basil Medley Left Upper Quadrant Abdomen Drain #1 5 days Indwelling Urinary Catheter 04/07/24 0800 [facility] Buenrostro 16 Fr 5 days SURGERY/PROCEDURE: Procedure(s) and Anesthesia Type: * REPAIR HERNIA RECURRENT VENTRAL INCARCERATED OR STRANGULATED GREATER THAN 10cm - General * RMVL NONINFCT MESH/PROSTH AA/PARASTOMAL HRNA RPR - General * FLAP MUSCLE MYOCUTANEOUS OR FASCIOCUTANEOUS, TRUNK - [facility] NoteHNO ID: [id number] Author: MARY BARCLAY APRN.JET MECHANIC Service: Critical Care Author Type: Nurse Practitioner Type: Progress Notes Filed: 04/12/2024 16:08 Note Text: Surgical ICU Progress Note Service Date: April 12, 2024 Service Time: 1602 Admission Date: 04/07/2024 Hospital Day: # 5 5 Days Post-Op CARE COORDINATION NOTE Indication for Surgery: Recurrent Ventral Incisional Hernia Important/Relevant PMH/PSH: COPD on 2L NC at home most of the time , CAD s/p PCI in 2017 and 2022 (follows with Dr. Gomes), HTN on home amlodipine, HLD on Crestor, CHF on home lasix, GERD on home PPI, T2DM on metformin NOT on insulin. PSH: incisional hernia repair followed by mesh excision for infected mesh I 2007, repeat incisional hernia repair. Hx of MRSA infection. Preoperative Hospital Course: (narrative or log of major events) Underwent robotic converted to open ventral hernia repair on 04/07. AMET from floor on 04/08 for hypotension and 1st degree heart block. Airway Difficulty: Not intubated for procedure Difficult Central Access: No Recent ECHO: Date: 04/09/2024 LVEF: Decreased, 52% RVF: normal Code Status: Full Chronological List of Surgeries and Major Events (Diagnosis): (Surgeries in bold characters) 04/07/2024: Robotic converted to open ventral hernia repair (converted due to serosal injury) 04/08/2024: AMET to SICU for hypotension and first degree heart block Major Events within past 24 hours: HDS off pressors Weaned from HFNC 35L 50%Fio2 to NC 3L (2LNC @home) OOBTC NT Pro BNP elevated, weight down, clinically improved from volume overload standpoint Did not sleep well last night A/P of Major Active Problems (excluding routine care and common problems): Neuro: Acute PostOperative Pain, insomnia S/p VHR - Current pain control regimen: scheduled tylenol, PRN Oxy - Start Melatonin 3mg HS CV: Hypotension, First Degree Heart Block, LBBB, HF exacerbation, Hx of PCI HoTN on RNF->SICU; now HDS, no vasopressors Diuresed (80mg 04/09) Troponin flat () EKG SR w/1*HB; LBBB ECHO 04/09: EF 52%, grade 1 DD, normal RV; basal inferior segment and basal inferoseptal segment are severely hypokinetic in s/o prior RCA PCI 04/11 Pro BNP: 406->1953 with increased O2 requirements. Got 20 IV lasix overnight 04/12: Pro BNP 1953->3026, weight down and O2 requirements back to baseline, HDS. - Last dose of IV lasix today @1400 then transition to home dose PO lasix 40mg daily - Cardiology consulted by primary team, f/u recs - Continuous tele monitoring - EKG PRN - Trend BNP -cont Lipitor, aspirin, and amlodipine Resp: Hx of COPD; Acute on Chronic Respiratory Failure, Acute PostOp Pulmonary Insufficiency HTN, HLD, CHF, pleural effusions Baseline 2-3L home O2 HFNC 35L 50% weaned to 3L NC - Aggressive BPH, PEP, IS, OOBTC - Continue home inhlaers - Cont methylpred BID for COPDE - Wean O2 to maintain SpO2 >88-92% - Last dose of IV lasix today @1400 then transition to home dose PO lasix 40mg daily - Daily CXR GI: Ileus, Postoperative Diet GERD CTAP demonstrated dilated loops of bowel; likely ileus Having BM's on PO diet - GI diet - Monitor abd exam - Continue PPI Renal/FEN: GABINO, Post-surgical -Trend renal indices - Monitor urine output and replete electrolyte as needed - Strict I//O; continue buenrostro (d/c today or tomorrow) - Cont Flomax - avoid nephrotoxins as able Heme: Acute Blood Loss Anemia Transfused 2 PRBC 04/08; 1 PRBC 04/09 04/12: hgb stable 10.8 - Monitor HANDH and s/s of bleeding - Transfuse for hemoglobin < 7 or symptomatic anemia Infectious Disease: CTPE/Chest: negative PE; consolidative opacities, atelectasis v infection; small b/l pleural effusions, upper GGO - Continue Meropenem - Consider atypical coverage if increased O2 reqs/worsening resp status - CXR, ABG PRN - Trend WBC and temp curve Endo: Type II Diabetes Mellitus, Stress Hyperglycemia Home meds: Metformin IV steroid regimen (for COPD) - Cont SSI 3 today - BG monitoring, hypoglycemia protocol in place - Continue methylpred through 04/12 Nutrition: GI diet Daily Plan Summary and Significant Findings or Concerns: - Wean O2 as tolerated - Restart home dose PO lasix tomorrow, stop IV lasix today - OOBTC, Aggressive BPH - F/u cards consult - Strict I/O - Possible RNF pending Primary team approval Barriers to transfer out of ICU: None Disposition: RNF Other Problems I reviewed and/or Managed During This Encounter: Principal Problem: Ventral hernia without obstruction or gangrene (POA: Yes) Active Problems: COPD (chronic obstructive pulmonary disease) (HCC) (POA: Yes) Supplemental oxygen dependent (POA: Yes) CAD (coronary artery disease) (POA: Yes) HTN (hypertension) (POA: Yes) HLD (hyperlipidemia) (POA: Yes) CHF (congestive heart failure) (HCC) (POA: Yes) Type 2 di (more content not included)...[facility]08-28-2024 NoteHNO ID: [id number] Author: CARMELO BONNER MD Service: General Surgery Author Type: Resident Type: Progress Notes Filed: 04/12/2024 06:49 Note Text: GENERAL SURGERY PROGRESS NOTE Johanna Macdonald [id number] ASSESSMENT AND PLAN Johanna Macdonald is a 69 year old female with PMHx COPD, HTN, HLD, CHF, GERD, T2DM, CAD s/p PCI who is s/p robotic converted to open ventral hernia repair with Dr. Anderson on 04/07/24. On 04/08, patient had AMET called for hypotension and suspected acute blood loss, requiring a total of 3U pRBC, and transferred to SICU. Found to have 1st degree heart block. Patient currently recovering well in SICU. No acute events overnight. Still trying to progressively wean off oxygen (on home 2-3L baseline), currently on 6L FiO2 50%. Resolution of her watery diarrhea with negative C. Diff. Patient was diuresed on 04/11, UOP 3.9L today 04/12. Plan: - Neuro: MMPC, on scheduled tylenol and prn dilaudid + oxy. - CV: stable trops, continue monitor vital signs per SICU. Echo 04/09 EF 52% - Resp: Continue BPH, PEP, IS, home inhalers, methylprednisone 40 BID (end 04/12). Will continue to monitor SpO2 and try to WO O2 to maintain spO2> 88-89%. Recommend Acapella - FENGI: Continue GIS. Continue PPI. CT on 04/09 showed no obstruction, suggesting ileus. Watery diarrhea resolved, C.Diff PCR negative. LICHA x2 decreased output SS. Right LICHA drain was removed 04/12 - Renal: monitor Cr. Buenrostro to remain in place. UOP 3.9L after lasix IV on 04/11. FU CXR. Recommend obtaining daily weights and accurate I/O - Endo: SS2, continue steroids, elevated POC - Heme: s/p 3U pRBC on 04/09, stable Hg 10.8. Lovenox 40 q24 - ID: Meropenem on 04/10 q8 (due to allergies), consider atypical coverage if worsening resp status - Dispo: possible transfer to [facility] on 04/12, continue PT/OT/RT Patient Active Hospital Problem List: Ventral hernia without obstruction or gangrene Date Noted: 04/07/2024 COPD (chronic obstructive pulmonary disease) ([facility]) Date Noted: 03/21/2024 Supplemental oxygen dependent Date Noted: 03/21/2024 CAD (coronary artery disease) Date Noted: 03/21/2024 HTN (hypertension) Date Noted: 03/21/2024 HLD (hyperlipidemia) Date Noted: 03/21/2024 CHF (congestive heart failure) ([facility]) Date Noted: 03/21/2024 Type 2 diabetes mellitus without complication, without long-term current use of insulin ([facility]) Date Noted: 03/21/2024 Obesity (BMI 30.0-34.9) Date Noted: 04/07/2024 Shock, during or resulting from a surgical procedure Date Noted: 04/08/2024 ABLA (acute blood loss anemia) Date Noted: 04/08/2024 Hypoxia Date Noted: 04/09/2024 Acute post-operative pain Date Noted: 04/10/2024 S/P repair of ventral hernia Date Noted: 04/10/2024 Acute on chronic hypoxic respiratory failure (HCC) Date Noted: 04/10/2024 Pleural effusion Date Noted: 04/11/2024 Obesity, Class II, BMI 35-39.9 Date Noted: 04/12/2024 SUBJECTIVE: No acute events overnight. Pain well controlled. No nausea or vomiting. Tolerating GIS diet. Passing flatus but not having BM since diarrhea resolved OBJECTIVE: BP (!) 144/49 Pulse (!) 54 Temp 36.8 ?C (98.2 ?F) (Oral) Resp 15 Wt 81.4 kg (179 lb 7.3 oz) SpO2 96% BMI 36.25 kg/m? Body mass index is 36.25 kg/m?. GENERAL: Alert and oriented, no acute distress, cooperative. LUNGS: Non labored breathing. ABDOMEN: soft, non tender, non distended. LICHA x1 Left SS WOUND: clean, dry and intact Labs: CBC, Coags, BMP, Mg, Phos Recent Labs 04/12/24 0006 04/11/24 0024 04/10/24 0010 WBC 13.43* 13.44* 14.01* HB 10.8* 10.1* 9.9* HCT 32.2* 30.6* 30.0* PLT 428* 334 281 INR -- 1.1 1.1 APTT -- 32.5* 31.6 NA 141 137 138 K 3.5* 4.2 3.7 CHLOR 104 105 103 CO2 24 20* 23 BUN 12 7 9 CREAT 0.65 0.57* 0.66 GLUC 173* 184* 133* CA 9.0 8.9 8.4* MG 1.9 2.1 2.3 P 2.5* 2.3* 3.5 Liver Function, Amylase, AND Lipase Recent Labs 04/12/24 0006 04/11/24 0024 04/10/24 0010 TPROT 6.1* 6.1* 5.9* ALB 3.6* 3.4* 3.6* ALT 48* 59* 84* AST 16 22 38* ALKPHOS 92 94 86 TBILI 0.4 0.4 0.5 I/O past 24h: Intake/Output Summary (Last 24 hours) at 04/12/2024 0549 Last data filed at 04/12/2024 0500 Gross per 24 hour Intake 677 ml Output 4540 ml Net -3863 ml LDA: Lines, Drains, and Airways Line Duration Arterial Line/Sheath 04/09/24 1138 Left Brachial 2 days Peripheral 04/09/24 1133 Left Arm 18 Gauge 2 days Peripheral 04/10/24 1000 [facility] Right Forearm 20 Gauge 1 day Peripheral 04/11/24 1600 [facility] Right Forearm 20 Gauge <1 day Drain Duration Drain/Tube 04/07/24 1200 [facility] Basil Medley Left Upper Quadrant Abdomen Drain #1 4 days Drain/Tube 04/07/24 1200 [facility] Basil Medley Right Upper Quadrant Abdomen Drain #2 4 days Indwelling Urinary Catheter 04/07/24 0800 [facility] Buenrostro 16 Fr 4 days SURGERY/PROCEDURE: Procedure(s) and Anesthesia Type: * HERNIORRHAPHY VENTRAL RECURRENT REDUCIBLE GR (more content not included)... [facility]08-27-2024 NoteHNO ID: [id number] Author: MARY BARCLAY APRN.JET MECHANIC Service: Critical Care Author Type: Nurse Practitioner Type: Progress Notes Filed: 04/11/2024 16:53 Note Text: Surgical ICU Progress Note Service Date: April 11, 2024 Service Time: 1649 Admission Date: 04/07/2024 Hospital Day: # 4 4 Days Post-Op CARE COORDINATION NOTE Indication for Surgery: Recurrent Ventral Incisional Hernia Important/Relevant PMH/PSH: COPD on 2L NC at home most of the time , CAD s/p PCI in 2017 and 2022 (follows with Dr. Gomes), HTN on home amlodipine, HLD on Crestor, CHF on home lasix, GERD on home PPI, T2DM on metformin NOT on insulin. PSH: incisional hernia repair followed by mesh excision for infected mesh I 2007, repeat incisional hernia repair. Hx of MRSA infection. Preoperative Hospital Course: (narrative or log of major events) Underwent robotic converted to open ventral hernia repair on 04/07. AMET from floor on 04/08 for hypotension and 1st degree heart block. Airway Difficulty: Not intubated for procedure Difficult Central Access: No Recent ECHO: Date: 04/09/2024 LVEF: Decreased, 52% RVF: normal Code Status: Full Chronological List of Surgeries and Major Events (Diagnosis): (Surgeries in bold characters) 04/07/2024: Robotic converted to open ventral hernia repair (converted due to serosal injury) 04/08/2024: AMET to SICU for hypotension and first degree heart block Major Events within past 24 hours: HDS off pressors Weaned from HFNC 35L 50%Fio2 to NC 6L OOBTC NT Pro BNP elevated 406->1953 A/P of Major Active Problems (excluding routine care and common problems): Neuro: Acute PostOperative Pain S/p VHR - Current pain control regimen: scheduled tylenol, PRN dilaudid + Oxy CV: Hypotension, First Degree Heart Block, LBBB, HF exacerbation HoTN on RNF->SICU; now HDS, no vasopressors Diuresed (80mg 04/09) Troponin flat (22-21-24) EKG SR w/1*HB; LBBB ECHO 04/09: EF 52%, grade 1 DD, normal RV; basal inferior segment and basal inferoseptal segment are severely hypokinetic in s/o prior RCA PCI 04/11 Pro BNP: 406->1953 with increased O2 requirements. Got 20 IV lasix overnight - Start Lasix 40mg IVP TID - Continuous tele monitoring - EKG PRN - Trend BNP -cont Lipitor, aspirin, and amlodipine Resp: Hx of COPD; Acute on Chronic Respiratory Failure, Acute PostOp Pulmonary Insufficiency HTN, HLD, CHF, pleural effusions Baseline 2-3L home O2 HFNC 35L 50% weaned to 6L NC - Aggressive BPH, PEP, IS, OOBTC - Continue home inhlaers - Cont methylpred BID for COPDE - Wean O2 to maintain SpO2 >88-92% - Scheduled IV lasix TID today in s/o of elevated BNP - Daily CXR GI: Ileus, Postoperative Diet GERD CTAP demonstrated dilated loops of bowel; likely ileus Having BM's on PO diet - GI diet - Monitor abd exam - Continue PPI Renal/FEN: GABINO, Post-surgical -Trend renal indices - Monitor urine output and replete electrolyte as needed - Strict I//O; continue buenrostro (d/c today or tomorrow) - Cont Flomax - avoid nephrotoxins as able Heme: Acute Blood Loss Anemia Transfused 2 PRBC 04/08; 1 PRBC 04/09 04/11: hgb stable 10.1 - Monitor HANDH and s/s of bleeding - Transfuse for hemoglobin < 7 or symptomatic anemia Infectious Disease: CTPE/Chest: negative PE; consolidative opacities, atelectasis v infection; small b/l pleural effusions, upper GGO - Continue Meropenem - Consider atypical coverage if increased O2 reqs/worsening resp status - CXR, ABG PRN - Trend WBC and temp curve Endo: Type II Diabetes Mellitus, Stress Hyperglycemia Home meds: Metformin BG 140-230 IV steroid regimen (for COPD) - increase SSI 2 to SSI 3 today - BG monitoring, hypoglycemia protocol in place - Continue methylpred Nutrition: GI diet Daily Plan Summary and Significant Findings or Concerns: - Wean O2 as tolerated - Start scheduled Lasix 40mg IV TID - OOBTC, Aggressive BPH - Monitor BG on increased SSI - Strict I/O Barriers to transfer out of ICU: O2 reqs Disposition: SICU Other Problems I reviewed and/or Managed During This Encounter: Principal Problem: Ventral hernia without obstruction or gangrene (POA: Yes) Active Problems: COPD (chronic obstructive pulmonary disease) (HCC) (POA: Yes) Supplemental oxygen dependent (POA: Yes) CAD (coronary artery disease) (POA: Yes) HTN (hypertension) (POA: Yes) CHF (congestive heart failure) (HCC) (POA: Yes) Type 2 diabetes mellitus without complication, without long-term current use of insulin (HCC) (POA: Yes) Obesity (BMI 30.0-34.9) (POA: Yes) Shock, during or resulting from a surgical procedure (POA: No) ABLA (acute blood loss anemia) (POA: No) Hypoxia (POA: Yes) Acute post-operative pain (POA: No) S/P repair of ventral hernia (POA: No) Acute on chronic hypoxic respiratory failure (HCC) (POA: Unknown) Resolved Problems: * No resol (more content not included)...[facility]08-27-2024 NoteHNO ID: [id number] Author: ISABEL CONTRERAS RN Service: Care Management Author Type: Registered Nurse Type: Care Mgt Progress Note Filed: 04/11/2024 10:52 Note Text: CARE MANAGEMENT PROGRESS NOTE SERVICE DATE: 04/11/2024 SERVICE TIME: 1049 LOS: 4 days Post-Acute Discharge Planning Patient Goal(s): General wellness [place] Explained: Discharge Planning Participant(s): (rounding) Patient/Family Comments: Anticipated # of Days Until Discharge: (TBD) Transport at Discharge: Transportation Arrangements: Car Date of Trip: (TBD) Time of Trip: (TBD) Destination: home Needs Prior to Discharge: Needs Prior to Discharge: To Be Determined (medical clearance) Post-Acute Discharge Plan: TBD Patient continues to require ICU level of care remains in SICU on hi-flow. Patient independent prior has home oxygen unsure of company name spouse to bring portable day of discharge he will transport. Pending on clinical course final plan and needs. TCC/SW to follow. Please contact case management for any changes in skilled needs. Thank you SIGNATURE: Isabel Contreras RN PATIENT NAME: Johanna Macdonald DATE: April 11, 2024 TIME: 10:49 AM PAGER/CONTACT #: [id number]-27-[facility]24 NoteHNO ID: [id number] Author: CARMELO BONNER MD Service: General Surgery Author Type: Resident Type: Progress Notes Filed: 04/12/2024 05:49 Note Text: GENERAL SURGERY PROGRESS NOTE Johanna Macdonald [id number] ASSESSMENT AND PLAN Johanna Macdonald is a 69 year old female with PMHx COPD, HTN, HLD, CHF, GERD, T2DM, CAD s/p PCI who is s/p robotic converted to open ventral hernia repair with Dr. Anderson on 04/07/24. On 04/08, patient had AMET called for hypotension and suspected acute blood loss, requiring a total of 3U pRBC, and transferred to SICU. Found to have 1st degree heart block. Patient recovering in SICU, Hg stable, will keep monitoring. Patient still desaturating to 84% when turning on FiO2 50% (weaned from 55%) on 04/11. Baseline 2-3L home O2. Patient reports resolution of her watery diarrhea today 04/11, C.Diff PCR negative. Plan: - Neuro: MMPC, on scheduled tylenol and prn dilaudid + oxy. COUNTER TACKER DC'd - CV: stable trops, continue monitor vital signs per SICU. Echo 04/09 EF 52% - Resp: Continue BPH, PEP, IS, home inhalers, methylprednisone 40 increased to BID (end 04/12). Will continue to monitor SpO2 and try to WO O2 to maintain spO2> 88-89%. Will likely diurese today. - FENGI: Continue GIS. Continue PPI. CT on 04/09 showed no obstruction, suggesting ileus. Watery diarrhea, C.Diff PCR negative. KUB showing possible mild ileus 04/10. LICHA x2 decreased output SS - Renal: monitor Cr. Buenrosrto to remain in place. - Endo: SS2, continue steroids, elevated POC - Heme: s/p 3U pRBC, stable Hg 10.1 - ID: Meropenem on 04/10 q8 (due to allergies), consider atypical coverage if worsening resp status - Dispo: continue SICU, appreciate PT/OT/RT Patient Active Hospital Problem List: Ventral hernia without obstruction or gangrene Date Noted: 04/07/2024 COPD (chronic obstructive pulmonary disease) ([facility]) Date Noted: 03/21/2024 Supplemental oxygen dependent Date Noted: 03/21/2024 CAD (coronary artery disease) Date Noted: 03/21/2024 HTN (hypertension) Date Noted: 03/21/2024 CHF (congestive heart failure) ([facility]) Date Noted: 03/21/2024 Type 2 diabetes mellitus without complication, without long-term current use of insulin ([facility]) Date Noted: 03/21/2024 Obesity (BMI 30.0-34.9) Date Noted: 04/07/2024 Shock, during or resulting from a surgical procedure Date Noted: 04/08/2024 ABLA (acute blood loss anemia) Date Noted: 04/08/2024 Hypoxia Date Noted: 04/09/2024 Acute post-operative pain Date Noted: 04/10/2024 S/P repair of ventral hernia Date Noted: 04/10/2024 Acute on chronic hypoxic respiratory failure (HCC) Date Noted: 04/10/2024 SUBJECTIVE: No acute events overnight. Pain well controlled. No nausea or vomiting. Tolerating GIS diet. Flatus +, resolved diarrhea OBJECTIVE: BP 141/64 Pulse 79 Temp 36.5 ?C (97.7 ?F) (Oral) Resp 25 Wt 80 kg (176 lb 5.9 oz) SpO2 93% BMI 35.62 kg/m? Body mass index is 35.62 kg/m?. GENERAL: Alert and oriented, no acute distress, cooperative. LUNGS: Non labored breathing. ABDOMEN: soft, non tender, non distended. LICHA x2 WOUND: clean, dry and intact Labs: CBC, Coags, BMP, Mg, Phos Recent Labs 04/10/24 0010 04/09/24 0144 04/08/24 2358 04/08/24 1827 04/08/24 1520 WBC 14.01* 10.93 10.70 < > 10.63 HB 9.9* 8.4* 8.2* < > 8.1* HCT 30.0* 25.5* 25.3* < > 25.3* PLT 281 226 218 < > 244 INR 1.1 -- 1.1 -- -- APTT 31.6 -- 23.4 -- -- NA 138 137 136 -- 135* K 3.7 3.8 -- -- 3.8 CHLOR 103 102 103 -- 100 CO2 23 22 23 -- 22 BUN 9 10 11 -- 12 CREAT 0.66 0.83 0.78 -- 0.80 GLUC 133* 106* 109* -- 115* CA 8.4* 8.0* 8.0* -- 7.7* MG 2.3 -- 1.9 -- 1.6* P 3.5 -- 3.2 -- 3.8 < > = values in this interval not displayed. Liver Function, Amylase, AND Lipase Recent Labs 04/10/24 0010 04/09/24 0144 04/08/248 TPROT 5.9* 5.3* 5.5* ALB 3.6* 3.7* 3.4* ALT 84* 103* 105* AST 38* 76* 97* ALKPHOS 86 72 68 TBILI 0.5 0.6 0.5 I/O past 24h: Intake/Output Summary (Last 24 hours) at 04/10/2024 1720 Last data filed at 04/10/2024 1600 Gross per 24 hour Intake 834 ml Output 2270 ml Net -1436 ml LDA: Lines, Drains, and Airways Line Duration Arterial Line/Sheath 04/09/24 1138 Left Brachial 1 day Peripheral 04/09/24 1133 Left Arm 18 Gauge 1 day Peripheral 04/10/24 1000 [facility] Right Forearm 20 Gauge <1 day Drain Duration Drain/Tube 04/07/24 1200 [facility] Basil Medley Left Upper Quadrant Abdomen Drain #1 3 days Drain/Tube 04/07/24 1200 [facility] Basil Medley Right Upper Quadrant Abdomen Drain #2 3 days Indwelling Urinary Catheter 04/07/24 0800 [facility] Buenrostro 16 Fr 3 days SURGERY/PROCEDURE: Procedure(s) and Anesthesia Type: * HERNIORRHAPHY VENTRAL RECURRENT REDUCIBLE GREATER THAN 10cm - [facility] NoteHNO ID: [id number] Author: NICKIE MOTA APRN.JET MECHANIC Service: Critical Care Author Type: Nurse Practitioner Type: Progress Notes Filed: 04/10/2024 14:24 Note Text: Surgical ICU Progress Note Service Date: April 10, 2024 Service Time: 1308 Admission Date: 04/07/2024 Hospital Day: # 3 3 Days Post-Op CARE COORDINATION NOTE Indication for Surgery: Recurrent Ventral Incisional Hernia Important/Relevant PMH/PSH: COPD on 2L NC at home most of the time , CAD s/p PCI in 2017 and 2022 (follows with Dr. Gomes), HTN on home amlodipine, HLD on Crestor, CHF on home lasix, GERD on home PPI, T2DM on metformin NOT on insulin. PSH: incisional hernia repair followed by mesh excision for infected mesh I 2007, repeat incisional hernia repair. Hx of MRSA infection. Preoperative Hospital Course: (narrative or log of major events) Underwent robotic converted to open ventral hernia repair on 04/07. AMET from floor on 04/08 for hypotension and 1st degree heart block. Airway Difficulty: Not intubated for procedure Difficult Central Access: No Recent ECHO: Date: 04/08/2024 LVEF: Decreased;52% RVF: Normal Code Status: Full Chronological List of Surgeries and Major Events (Diagnosis): (Surgeries in bold characters) 04/07/2024: Robotic converted to open ventral hernia repair (converted due to serosal injury) 04/08/2024: AMET to SICU for hypotension and first degree heart block Major Events within past 24 hours: Admitted to SICU for HoTN, 1*HB Weaned from AIRVO to HFNC A/P of Major Active Problems (excluding routine care and common problems): Neuro: Acute PostOperative Pain S/p VHR - D/c COUNTER TACKER - Current pain control regimen: scheduled tylenol, PRN dilaudid + Oxy CV: Hypotension, First Degree Heart Block, LBBB HoTN on RNF->SICU; now HDS, no vasopressors Diuresed (80mg 04/09) Troponin flat () EKG SR w/1*HB; LBBB ECHO 04/09: EF 52%, grade 1 DD, normal RV; basal inferior segment and basal inferoseptal segment are severely hypokinetic - Consider Cardiology consult pending clinical trajectory - Continuous tele monitoring - EKG PRN Resp: Hx of COPD; Acute on Chronic Respiratory Failure, Acute PostOp Pulmonary Insufficiency HTN, HLD, CHF Baseline 2-3L home O2 AIRVO transitioned to HFNC (6-8L) - Aggressive BPH, PEP, IS, OOBTC - Continue home inhlaers - Increase methylpred to BID - Wean O2 to maintain SpO2 >88-92% GI: Ileus, Postoperative Diet GERD CTAP demonstrated dilated loops of bowel; likely ileus - GI diet - Monitor abd exam - Continue PPI Renal/FEN: GABINO, Post-surgical - Baseline sCr - Monitor urine output and replete electrolyte as needed - Strict I//O; continue buenrostro (d/c today or tomorrow) Heme: Acute Blood Loss Anemia Transfused 2 PRBC 04/08; 1 PRBC 04/09 - Monitor HANDH and s/s of bleeding - Transfuse for hemoglobin < 7 or symptomatic anemia Infectious Disease: CTPE/Chest: negative PE; consolidative opacities, atelectasis v infection; small b/l pleural effusions, upper GGO - Continue Meropenem - Consider atypical coverage if increased O2 reqs/worsening resp status - CXR, ABG PRN Endo: Type II Diabetes Mellitus, Stress Hyperglycemia Home meds: Metformin BG 140-230 IV steroid regimen - SS2, may need increased to SS3 - BG monitoring - Continue steroids Nutrition: GI diet Daily Plan Summary and Significant Findings or Concerns: - Wean O2 - D/c COUNTER TACKER - Increase steroids to BID; consider atypical coverage if decline in resp status - Hold diuresis today; evaluated daily Barriers to transfer out of ICU: O2 reqs Disposition: SICU Other Problems I reviewed and/or Managed During This Encounter: Principal Problem: Ventral hernia without obstruction or gangrene (POA: Yes) Active Problems: COPD (chronic obstructive pulmonary disease) (HCC) (POA: Yes) Supplemental oxygen dependent (POA: Yes) CAD (coronary artery disease) (POA: Yes) HTN (hypertension) (POA: Yes) CHF (congestive heart failure) (HCC) (POA: Yes) Type 2 diabetes mellitus without complication, without long-term current use of insulin (HCC) (POA: Yes) Obesity (BMI 30.0-34.9) (POA: Yes) Shock, during or resulting from a surgical procedure (POA: No) ABLA (acute blood loss anemia) (POA: No) Hypoxia (POA: Yes) Acute post-operative pain (POA: No) S/P repair of ventral hernia (POA: No) Resolved Problems: * No resolved hospital problems. * Assessment AND Plan Ventral hernia without obstruction or gangrene Obesity (BMI 30.0-34.9) Shock, during or resulting from a surgical procedure ABLA (acute blood loss anemia) COPD (chronic obstructive pulmonary disease) (HCC) Supplemental oxygen dependent CAD (coronary artery disease) HTN (hypertension) CHF (congestive heart failure) (HCC) Type 2 diabetes mellitus without complication, without long-term current use of insulin (HCC) H (more content not included)...[facility]08-26-2024 NoteHNO ID: [id number] Author: ISABEL CONTRERAS RN Service: Care Management Author Type: Registered Nurse Type: Care Mgt Initial Assessment Filed: 04/10/2024 12:56 Note Text: CARE MANAGEMENT: ASSESSMENT AND DISCHARGE PLAN SERVICE DATE: April 10, 2024 SERVICE TIME: 1240 PCP: Issac Conway MD Primary Contact: Extended Emergency Contact Information Primary Emergency Contact: Puma Macdonald Mobile Relation: Spouse Secondary Emergency Contact: jason cade Mobile Relation: Son Admission Status: Inpatient Insurance [facility] Discharge Planning requested by: Per Department Practice Potential Transition Plans To Be Determined Advance Directives Current Advance Directive: None 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 Attempted to Assist with AD Completion: Yes Action: Education Provided Current Living Arrangements and Support Lives with: Spouse/significant other Type of Residence: Private Residence (House) Does the patient have to climb stairs at home?: No Support: Family members, Friends/neighbors, Spouse/significant other How do you manage to accomplish the following: Independent: Ambulation;Bathe/Shower;Dress;Transportation to appointments/community;Medication Management;Meals/Meal Prep;Going to the bathroom Current Services/Equipment Current Post-Acute Service(s): Oxygen, DME Current O2 Usage (device, rate, continuous/pulse and hrs per day): nasal cannula Current DME Type: Nebulizer Current Post-Acute Service(s) Provider: Unsure know company is in [place], [place] Discharge Planning Patient Goal(s): General wellness [place] Explained: [place] Given: No Reason Not Given: Unable to complete with this assessment - revisit Are you interested in bedside delivery of your medications? No Discharge Planning Participant(s): Patient (rounding) Patient/Family Comments: Caregiver Assessment: Caregiver is ready, willing and able to meet the patient's needs as recommended by the inter-professional team: Other: See Comment (TBD) Transport at Discharge: Transportation Arrangements: Car Date of Trip: (TBD) Time of Trip: (TBD) Destination: home Needs Prior to Discharge: Needs Prior to Discharge: To Be Determined Post-Acute Discharge Plan: TBD Patient s/p robotic converted to open ventral hernia repair on 04/07/24. Patient had AMET 04/08 for hypotension and suspected acute blood loss transferred to SICU found to have 1st degree heart block. Patient remains in SICU monitoring respiratory status. Per patient independent prior has home oxygen does not know name of company it is in [place], [place] no other needs spouse to transport. Patient will ask spouse to bring portable oxygen day of discharge. Pending on clinical course final plan and needs. TCC/SW to follow. Please contact case management for any changes in skilled needs. Thank you SIGNATURE: Isabel Contreras RN PATIENT NAME: Johanna Macdonald DATE: April 10, 2024 TIME: 12:40 PM CONTACT #: [id number]08-26-2024 Note HNO ID: [id number] Author: CARMELO BONNER MD Service: General Surgery Author Type: Resident Type: Progress Notes Filed: 04/10/2024 17:11 Note Text: GENERAL SURGERY PROGRESS NOTE Johanna Macdonald [id number] ASSESSMENT AND PLAN Johanna Macdonald is a 69 year old female with PMHx COPD, HTN, HLD, CHF, GERD, T2DM, CAD s/p PCI who is s/p robotic converted to open ventral hernia repair with Dr. Anderson on 04/07/24. On 04/08, patient had AMET called for hypotension and suspected acute blood loss, requiring a total of 3U pRBC, and transferred to SICU. Found to have 1st degree heart block. On 04/10, patient Hg stable. In SICU. Desaturating 90% on [place] overnight with CT PE without any evidence of PE. Patient endorsing new onset watery diarrhea. Plan: - Neuro: MMPC, on prn dilaudid. DC COUNTER TACKER - CV: stable trops, continue monitor vital signs per SICU - Resp: BPH, home inhalers. Monitor SpO2 and encourage aggressive PT/OT/RT w/ IS, likely would benefit from diuresis today, would obtain daily weights to monitor fluid status - FENGI: Advance to GIS. CT on 04/09 showed no obstruction, suggesting ileus. Watery diarrhea, C.Diff PCR sent - Renal: monitor Cr. Buenrostro to remain in place. - Endo: SS2 - Heme: s/p 3U pRBC, stable Hg 9.9 - ID: s/p postoperative abx. No abx indicated at this time - Dispo: continue SICU Patient Active Hospital Problem List: Ventral hernia without obstruction or gangrene Date Noted: 04/07/2024 Obesity, Class I, BMI 30-34.9 Date Noted: 04/07/2024 Shock, during or resulting from a surgical procedure Date Noted: 04/08/2024 ABLA (acute blood loss anemia) Date Noted: 04/08/2024 Hypoxia Date Noted: 04/09/2024 SUBJECTIVE: No acute events overnight. Pain well controlled. No nausea or vomiting. Tolerating CLD diet. Flatus +, watery diarhea OBJECTIVE: BP 141/64 Pulse 74 Temp 37 ?C (98.6 ?F) (Oral) Resp 26 Wt 72.6 kg (160 lb) SpO2 93% BMI 32.32 kg/m? Body mass index is 32.32 kg/m?. GENERAL: Alert and oriented, no acute distress, cooperative. LUNGS: Non labored breathing. ABDOMEN: soft, non tender, non distended. LICHA x2 WOUND: clean, dry and intact Labs: CBC, Coags, BMP, Mg, Phos Recent Labs 04/10/24 0010 04/09/24 0144 04/08/24 2358 04/08/24 1827 04/08/24 1520 WBC 14.01* 10.93 10.70 < > 10.63 HB 9.9* 8.4* 8.2* < > 8.1* HCT 30.0* 25.5* 25.3* < > 25.3* PLT 281 226 218 < > 244 INR 1.1 -- 1.1 -- -- APTT 31.6 -- 23.4 -- -- NA 138 137 136 -- 135* K 3.7 3.8 -- -- 3.8 CHLOR 103 102 103 -- 100 CO2 23 22 23 -- 22 BUN 9 10 11 -- 12 CREAT 0.66 0.83 0.78 -- 0.80 GLUC 133* 106* 109* -- 115* CA 8.4* 8.0* 8.0* -- 7.7* MG 2.3 -- 1.9 -- 1.6* P 3.5 -- 3.2 -- 3.8 < > = values in this interval not displayed. Liver Function, Amylase, AND Lipase Recent Labs 04/10/24 0010 04/09/24 0144 04/08/24 2358 TPROT 5.9* 5.3* 5.5* ALB 3.6* 3.7* 3.4* ALT 84* 103* 105* AST 38* 76* 97* ALKPHOS 86 72 68 TBILI 0.5 0.6 0.5 I/O past 24h: Intake/Output Summary (Last 24 hours) at 04/10/2024 0606 Last data filed at 04/10/2024 0500 Gross per 24 hour Intake 2384 ml Output 4420 ml Net -2036 ml LDA: Lines, Drains, and Airways Line Duration Peripheral 04/08/24 1452 Right Forearm 18 Gauge 1 day Arterial Line/Sheath 04/09/24 1138 Left Brachial <1 day Peripheral 04/09/24 1133 Left Arm 18 Gauge <1 day Drain Duration Drain/Tube 04/07/24 1200 [facility] Basil Medley Left Upper Quadrant Abdomen Drain #1 2 days Drain/Tube 04/07/24 1200 [facility] Basil Medley Right Upper Quadrant Abdomen Drain #2 2 days Indwelling Urinary Catheter 04/07/24 0800 [facility] Buenrostro 16 Fr 2 days SURGERY/PROCEDURE: Procedure(s) and Anesthesia Type: * HERNIORRHAPHY VENTRAL RECURRENT REDUCIBLE GREATER THAN 10cm - [facility] NoteHNO ID: [id number] Author: MALU ASCENCIO RT(R) Service: Radiology Author Type: Specimen Processor Type: Progress Notes Filed: 04/09/2024 22:47 Note Text: Radiology Service Progress Note DATE OF SERVICE: April 09, 2024 TIME: 10:47 PM PATIENT IDENTITY VERIFICATION COMPLETED USING TWO (2) STANDARD IDENTIFIERS: Name and Date of confirmed by patient verbally and Name and Date of confirmed by identification band. FALL SCREENING: Has the patient had 2 falls in the last year or 1 fall with injury or currently using an Ambulatory Assistive Device (Walker, Cane, Wheelchair, Crutches, etc.)? Inpatient: Screened on floor PATIENT GENDER DATA: Female. status: : No status: NO. PATIENT RELEVANT IMPLANT DATA REVIEWED: Yes PATIENT PRESENTS WITH AN IMPLANTABLE OR ATTACHED ART GLASS SETTER: No ALLERGIES: Reviewed and unchanged CONTRAST ALLERGY: NO. EXAM: CT -CONTRAST INDUCED NEPHROPATHY RISK FACTORS: Patient age > 60 years CREATININE: Creatinine Date Value Ref Range Status 04/09/2024 0.83 0.58 - 0.96 mg/dL Final 04/08/2024 0.78 0.58 - 0.96 mg/dL Final 04/08/2024 0.80 0.58 - 0.96 mg/dL Final Estimated Glomerular Filtration Rate Date Value Ref Range Status 04/09/2024 76 >=60 mL/min/1.73m? Final Comment: Estimated Glomerular Filtration Rate (eGFR) is calculated using the 2020 CKD-EPI creatinine equation. This equation utilizes serum creatinine, sex, and age as parameters. The creatinine assay has traceable calibration to isotope dilution-mass spectrometry. Refer to KDIGO guidelines for clinical interpretation. In patients with unstable renal function, e.g. those with acute kidney injury, the eGFR may not accurately reflect actual GFR. P.O.C.T. RESULTS: POC done: Yes, See Lab Tab April 09, 2024 TREATMENT: N/A PERIPHERAL IV DATA: Inpatient - refer to LDA documentation RADIOLOGY DEPARTMENT: CT; Exam(s) Completed: Abdomen/Pelvis and PE Study SIGNATURE: RT Nikos(R) PATIENT NAME: Johanna Macdonald DATE: April 09, 2024 TIME: 10:47 [facility]08-25-2024 NoteHNO ID: [id number] Author: AMILCAR SPICER MD Service: Critical Care Author Type: Physician Type: Progress Notes Filed: 04/09/2024 19:59 Note Text: Surgical ICU Progress Note Service Date: April 09, 2024 Service Time: 841 Admission Date: 04/07/2024 Hospital Day: # 2 2 Days Post-Op CARE COORDINATION NOTE Indication for Surgery: Recurrent Ventral Incisional Hernia Important/Relevant PMH/PSH: COPD on 2L NC at home most of the time , CAD s/p PCI in 2017 and 2022 (follows with Dr. Gomes), HTN on home amlodipine, HLD on Crestor, CHF on home lasix, GERD on home PPI, T2DM on metformin NOT on insulin. PSH: incisional hernia repair followed by mesh excision for infected mesh I 2007, repeat incisional hernia repair. Hx of MRSA infection. Preoperative Hospital Course: (narrative or log of major events) Underwent robotic converted to open ventral hernia repair on 04/07. AMET from floor on 04/08 for hypotension and 1st degree heart block. Airway Difficulty: Not intubated for procedure Difficult Central Access: No Recent ECHO: Date: 04/08/2024 LVEF: Decreased RVF: Pending Code Status: Full Chronological List of Surgeries and Major Events (Diagnosis): (Surgeries in bold characters) 04/07/2024: Robotic converted to open ventral hernia repair (converted due to serosal injury) 04/08/2024: AMET to SICU for hypotension and first degree heart block Major Events within past 24 hours ; AMET to SICU for hypotension and first degree heart bloc 2U RBC on 04/08 -> 1U on 04/09 Continuing diuresis with lasix Started on methylprednisolone A/P of Major Active Problems (excluding routine care and common problems): Neuro: Non-inubated Pain Control - Current pain control regimen: scheduled tylenol, PRN dilaudid CV: Hypotension, first Degree Heart Block - Ordered BNP, Echo, EKG, delta troponin (8 hours) Resp: Hx of COPD - on 2-3 L NC - Aggressive BPH - Continue home inhlaers - Given 40 Methylprednisolone. Repeat 1U PRBC. GI: Postoperative Diet - CLD Renal/FEN: GABINO, Post-surgical - Baseline Cr - Monitor urine output and replete electrolyte as needed Heme: Postoperative Hematologic Monitoring - Monitor HANDH and s/s of bleeding - Transfuse for hemoglobin < 7 - Transfuse with products as needed. - s/p 2U PRBC on 04/08. Repeat 1U PRBC. Infectious Disease: Perioperative Antibiotics - Continue vancomycin Endo: Hisotory of Type II Diabetes Mellitus - SS2 Nutrition: CLD Daily Plan Summary and Significant Findings or Concerns: - Follow up Echo, EKG, troponin, BNP - AMET to SICU for hypotension and first degree heart bloc - 2U RBC on 04/08 -> 1U on 04/09 - Continuing diuresis with lasix Barriers to transfer out of ICU: hemodynamic stability Disposition: SICU Other Problems I reviewed and/or Managed During This Encounter: Principal Problem: Ventral hernia without obstruction or gangrene (POA: Yes) Active Problems: Obesity, Class I, BMI 30-34.9 (POA: Unknown) Shock, during or resulting from a surgical procedure (POA: Unknown) ABLA (acute blood loss anemia) (POA: Unknown) Resolved Problems: * No resolved hospital problems. * Assessment AND Plan Ventral hernia without obstruction or gangrene Obesity, Class I, BMI 30-34.9 Shock, during or resulting from a surgical procedure ABLA (acute blood loss anemia) OBJECTIVE Vitals: 04/09/24 0628 04/09/24 0649 04/09/24 0654 04/09/24 0800 Pulse: 69 72 73 70 BP: (!) 97/49 113/56 MAP Non Invasive (Mean Arterial Pressure): 70 80 Resp: 20 20 26 18 SpO2: 94% 92% 91% 91% There were no vitals filed for this visit. Intake/Output Summary (Last 24 hours) at 04/09/2024 0842 Last data filed at 04/09/2024 0800 Gross per 24 hour Intake 3569 ml Output 2775 ml Net 794 ml Weight: 72.6 kg (160 lb) (04/07/24617) Weight: 72.6 kg (160 lb) (04/07/24617) PHYSICAL EXAM Respiratory Support: Aerosol Mask Vent/Oxygen:O2 Therapy: Aerosol Mask (04/09/24648) Liters: 12 (04/09/24648) %FIO2: 50 (04/09/24648) Physical Examination: (Choices are re-selectable with right click) General Appearance and Neuro: No Acute Distress, follows commands, moving all extremities Heart and Vascular: Regular rate and rhythm, no ectopy, no murmur, strong peripheral pulses Respiratory: Lungs clear to auscultation. No wheezing, rhonchi, or rales Abdomen: Soft and Non-tender Renal: Adequate urine output Extremities/MSK/Incision: No edema, warm, no lesions and Incision site clean, dry and intact DATA Diagnostic Tests Reviewed: Most recent labs and imaging results. Labs: Refer to Results Section and Recent Labs 04/09/24 0144 04/08/24 2358 04/08/24 1827 04/08/24 1520 04/08/24 1157 04/08/24 0816 04/07/24 2358 WBC 10.93 10.70 10.77 10.63 12.33* -- 17.25* HB 8.4* 8.2* 8.4* 8.1* 9.3* < > 8.4* HCT 25.5* 25.3* 26.1* 25.3* 29.7* < > 26.1* (more content not included)... [facility]08-25-2024 NoteHNO ID: [id number] Author: BENJAMIN TESFAYE MD Service: General Surgery Author Type: Resident Type: Progress Notes Filed: 04/09/2024 07:38 Note Text: GENERAL SURGERY PROGRESS NOTE Johanna Macdonald [id number] ASSESSMENT AND PLAN Johanna Macdnoald is a 69 year old female with PMHx COPD, HTN, HLD, CHF, GERD, T2DM, CAD s/p PCI who is s/p robotic converted to open ventral hernia repair with Dr. Anderson on 04/07/24. On 04/08, patient had AMET called for hypotension and suspected acute blood loss, requiring 2U PRBC, and transfer to SICU. Found to have 1st degree heart block. Plan: - Neuro: MMPC, on prn dilaudid. Continue COUNTER TACKER - CV: stable trops, continue monitor vital signs per SICU - Resp: BPH, home inhalers. On NC up to 6L, wean to 2L as tolerated. Given 40 Methylprednisolone. Repeat 1U PRBC. - FENGI: On CLD. Dressing removed today. - Renal: monitor Cr. Buenrostro to remain in place. - Endo: SS2 - Heme: s/p 2U PRBC on 04/08. Repeat 1U PRBC. - ID: s/p postoperative abx. No abx indicated at this time - Dispo: continue SICU Patient Active Hospital Problem List: Ventral hernia without obstruction or gangrene Date Noted: 04/07/2024 Obesity, Class I, BMI 30-34.9 Date Noted: 04/07/2024 Shock, during or resulting from a surgical procedure Date Noted: 04/08/2024 ABLA (acute blood loss anemia) Date Noted: 04/08/2024 SUBJECTIVE: No acute events overnight. Pain well controlled. No nausea or vomiting. Tolerating CLD diet. No BM or flatus OBJECTIVE: BP 107/55 Pulse 77 Temp 36.9 ?C (98.4 ?F) (Axillary) Resp 23 Wt 72.6 kg (160 lb) SpO2 92% BMI 32.32 kg/m? Body mass index is 32.32 kg/m?. GENERAL: Alert and oriented, no acute distress, cooperative. LUNGS: Non labored breathing. On 6L HFNC ABDOMEN: soft, non tender, non distended. JPx2 WOUND: clean, dry and intact Labs: CBC, Coags, BMP, Mg, Phos Recent Labs 04/09/24 0144 04/08/24 2358 04/08/24 1827 04/08/24 1520 04/08/24 1157 04/08/24 0816 04/07/24 2358 WBC 10.93 10.70 10.77 10.63 12.33* -- 17.25* HB 8.4* 8.2* 8.4* 8.1* 9.3* < > 8.4* HCT 25.5* 25.3* 26.1* 25.3* 29.7* < > 26.1* PLT 226 218 241 244 323 -- 370 INR -- 1.1 -- -- -- -- -- APTT -- 23.4 -- -- -- -- -- NA 137 136 -- 135* 133* < > 135* K 3.8 -- -- 3.8 4.2 < > 4.4 CHLOR 102 103 -- 100 100 < > 102 CO2 22 23 -- 22 18* < > 23 BUN 10 11 -- 12 12 < > 10 CREAT 0.83 0.78 -- 0.80 0.82 < > 0.63 GLUC 106* 109* -- 115* 104* < > 165* CA 8.0* 8.0* -- 7.7* 8.3* < > 8.6 MG -- 1.9 -- 1.6* 1.8 -- 1.7 P -- 3.2 -- 3.8 -- -- 4.1 < > = values in this interval not displayed. Liver Function, Amylase, AND Lipase Recent Labs 04/09/24 0144 04/08/24 2358 04/08/24 1520 TPROT 5.3* 5.5* 5.8* ALB 3.7* 3.4* 4.2 ALT 103* 105* 104* AST 76* 97* 98* ALKPHOS 72 68 65 TBILI 0.6 0.5 0.4 I/O past 24h: Intake/Output Summary (Last 24 hours) at 04/09/2024 0505 Last data filed at 04/09/2024 0200 Gross per 24 hour Intake 4394 ml Output 2475 ml Net 1919 ml LDA: Lines, Drains, and Airways Line Duration Peripheral 04/07/24 0653 Short Right Hand 22 Gauge 1 day Peripheral 04/08/24 1452 Right Forearm 18 Gauge <1 day Drain Duration Drain/Tube 04/07/24 1200 [facility] Left Upper Quadrant Abdomen Drain #1 1 day Drain/Tube 04/07/24 1200 [facility] Basil Medley Right Upper Quadrant Abdomen Drain #2 1 day Indwelling Urinary Catheter 04/07/24 0800 [facility] Buenrostro 16 Fr 1 day SURGERY/PROCEDURE: Procedure(s) and Anesthesia Type: * HERNIORRHAPHY VENTRAL RECURRENT REDUCIBLE GREATER THAN 10cm - [facility] NoteHNO ID: [id number] Author: ELENO LEAHY MD Service: General Surgery Author Type: Resident Type: Progress Notes Filed: 04/08/2024 10:15 Note Text: GENERAL SURGERY PROGRESS NOTE Name: Johanna Macdonald Date: April 08, 2024 POD# 1 S/P: robotic->open bilateral TAR with mesh INTERVAL HPI and PERTINENT ROS: Doing well, still awaiting ROBF. Pain well managed. Sizable H/H drop, planning to transfuse today. Medications: Reviewed in the chart and at bedside. PHYSICAL EXAM: BP (!) 107/33 Pulse 75 Temp 36.9 ?C (98.4 ?F) (Oral) Resp 16 Wt 72.6 kg (160 lb) SpO2 94% BMI 32.32 kg/m? Intake/Output Summary (Last 24 hours) at 04/08/2024 0944 Last data filed at 04/08/2024 0515 Gross per 24 hour Intake 4660 ml Output 1155 ml Net 3505 ml GENERAL: Alert, no distress, cooperative LUNGS: Normal WOB CARDIAC: HDS ABDOMEN: Soft, appropriately tender, nondistended INCISIONS: C/D/I, JPs s/s EXTREMITIES: Extremities normal, no deformities, edema, clubbing or skin discoloration. Good capillary refill., No ulcers NEURO: Grossly normal cognition, motor function, and cranial nerves III-XII LABS: Recent Labs 04/08/24 0816 04/07/24 2358 WBC -- 17.25* HB 7.8* 8.4* HCT 24.6* 26.1* PLT -- 370 NA 135* 135* K 4.3 4.4 CHLOR 102 102 CO2 22 23 BUN 12 10 CREAT 0.79 0.63 GLUC 127* 165* CA 8.2* 8.6 MG -- 1.7 P -- 4.1 ASSESSMENT/PLAN: 69yoF who is POD1 s/p robotic -> open bilateral TAR, incisional hernia repair with mesh, doing okay today, had sizable H/H drop. -transfuse 2u RBC today with serial checks -continue CLD for now -monitor closely Elneo Leahy MD General Surgery, [facility]24 NoteHNO ID: [id number] Author: FABRICE MCCORMACK MD Service: General Surgery Author Type: Resident Type: Plan of Care Filed: 04/07/2024 19:55 Note Text: POST OPERATIVE CHECK NOTE Name: Johanna Macdonald S: Patient doing well. Pain well-controlled. Denies fevers, chills, chest pain, shortness of breath, nausea, vomiting. O: BP (!) 110/48 Pulse 82 Temp 36.6 ?C (97.9 ?F) (Oral) Resp 20 Wt 72.6 kg (160 lb) SpO2 95% BMI 32.32 kg/m? Temp (24hrs), Av.4 ?C (97.6 ?F), Min:36 ?C (96.8 ?F), Max:36.8 ?C (98.2 ?F) Intake/Output Summary (Last 24 hours) at 04/07/20241954 Last data filed at 04/07/2024 1658 Gross per 24 hour Intake 3310 ml Output 575 ml Net 2735 ml General - NAD, AOx3 Pulmonary - non-labored breathing on 2L NC CV - Reg rate, WWP, hemodynamically stable Abdomen - soft, appropriately tender, nondistended, JPx2 - Buenrostro draining clear yellow urine Wound - incision c/d/i A/P: 69 year old female POD#0 S/P HERNIORRHAPHY VENTRAL RECURRENT REDUCIBLE GREATER THAN 10cm: 55806 (CPT?). Hemodynamically stable, No immediate post operative complications. -Routine post op care Fabrice Mccormack MD April 07, 2024 7:55 [facility]08-23-2024 NoteHNO ID: [id number] Author: KYLE JOLLY SRNA Service: ? 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 SRNA: Kyle Jolly SRNA Performed by: LARON Indications and Patient Condition Indications for airway management: anesthesia Preoxygenated: yes anesthesia circuit Patient position: sniffing Method: asleep Cricoid Pressure: Yes Difficult Mask: No Final Airway Details Final airway type: endotracheal airway Final Endotracheal Airway: ETT Cuffed: yes Successful intubation technique: direct laryngoscopy Devices used: intubating stylet Endotracheal tube insertion site: oral Blade: Adele Blade size: #3 ETT size (mm): 7.0 Measured from: lips Measurement (cm): 21.5 Placement verified by: capnometry Cormack-Lehane Classification: grade I - full view of glottis Number of attempts at approach: 1 Airway not difficult SIGNATURE: LARON Varner PATIENT NAME: Johanna Macdonald DATE: April 07, 2024 TIME: 9:00 AM CSN: [id number] [facility] NoteHNO ID: [id number] Author: MARÍA YUN MD Service: General Surgery Author Type: Resident Type: Progress Notes Filed: 04/07/2024 06:59 Note Text: Patient consented for study? Yes STUDY TITLE: Robotic versus Open Ventral Hernia Repair (ROVHR) Trial IRB NO.: # [id number] CONTACT LENS FLASHING PUNCHER: Cornell Boles MD FLAKE MILLER WHEAT [employer] OATS: María Yun MD CONTACT: [email or web address] Consenting was performed by the attending surgeon, in a [id number] manner, during preoperative evaluation in General Surgery clinic. Consenting was performed greater than 30 days ago and patient was approached to reaffirm consent in research trial. Re-discussed above research protocol with the patient. The risks, benefits, alternatives, and costs were discussed. The study requirements and follow up procedures were reviewed and the importance of follow up compliance was stressed. All patient questions were addressed and answered. Patient agrees to continue participation in trial INCLUSION CRITERIA Yes No 1. The patient is > 18 years of age [x] [] 2. Midline ventral hernia defects ranging from 7 cm to 15 cm in greatest width as measured by pre-operative CT scan [x] [] 3. Body mass index (BMI) less than or equal to 45 [x] [] 4. Patient deemed either a robotic or an open candidate by the operating surgeon [x] [] EXCLUSION CRITERIA Yes No 1. Age 17 or younger [] [x] 2. Prisoners [] [x] 3. patients [] [x] 4. Emergent cases [] [x] 5. BMI greater than 45 [] [x] 6. Hernia defects less than 7 cm or greater than 15 cm in width as measured by pre-operative CT scan [] [x] María Yun MD Research Fellow [facility]08-13-2024 Note Oncology Progress Note Chief Complaint Iron Deficiency anemia; here to to over results. Oncological History/ROS/PE/Assessment and Plan Chief Complaint Thrombocytosis, anemia; go over results. Iron def anemia. History of Present Illness Johanna is 69-year-old nice lady with history of right inguinal hernia, COPD on oxygen intermittentlyat home, type 2 diabetes mellitus, chronic smoking-related cough, who smoked 1 to 1-1/2 pack/day for 42 years, and arthritis who was sent from her primary care physician to our hematology office to be evaluated for thrombocytosis with a platelet count of 508,000- 539,000 as per labs done since May 2023 through December 2023. Labs also showed microscopic anemia with hemoglobin of 8.9. Her iron studies were low consistent with ferritin of 5. The details of the labs are as follows: Labs on 12/28/2023 revealed WBC of 8.2, hemoglobin 8.9, MCV 70.2 which is low, MCH is low 21.8, MCHCis low at 31.0. RDW is high 17.2% platelet is a little high at 5 38,000. Has been mildly elevated 25645 39,000 since May 2023. WBC differential is normal. Iron is low at 21. Transferrin 328. TIBCis high 459. Ferritin is low 5 only. The folate is 20.6 and the B12 is low normal at 251. She stated she had a colonoscopy and EGD about 3 years ago in [place] by a visiting doctor from [place] but he told her that he was not able to see all the part of the colonoscopy therefore he could not rule out malignancy of the colon at that point. Patient does not remember if she was told to have it repeated. She has not seen GI since then. She denies any rectal bleeding or melena but she tried oral iron multiple times and every time she tries she has nausea and burping and indigestion. She denies any gross hematuria and denies any bleeding from any other sources. She eats red meat only once every 2 weeks. She denied being vegetarian. She smokes 1 and half pack per day for 42 years. 03/28/2024: She is here for the results of her labs done after she received 3 doses of IV iron infusion. She did not tolerate the sublingual B12 as she felt dizzy and pressure in her head and behind her eyes andin her hip as well after she got 1 sublingual B12. She still feeling tired and not much of energy but denies any chest pain or shortness of breath or. Occasionally she feels dizziness. 03/20/2024 repeated labs after she received 3 doses of IV iron infusion end of January 2024 again revealed improvement in hemoglobin and a platelet count. Her hemoglobin became 11.2 up from 8.9 and a platelet 453 down from 538. Her MCV still low at 71.9 and the white blood cell count is normal. Iron studies revealed improving but still low iron saturation to 17%. And iron of 62 with TIBC 317 down [id number]. Ferritin improved from 5 and became now 60. The B12 still low 251 and the folate is normal 14.7. 14 point systems were reviewed and are negative. Review of Systems General: Patient denied fevers or headaches or dizziness. Positive for severe fatigue and shortnessof breath with mild exertion. Lymphatic: No enlarged lymphadenopathy. Cardiovascular: Patient denied CP, SOB or leg edema. Respiratory: no cough or SOB or hemoptysis. Positive for shortness of breath with mild exertion. GI: No nausea or vomiting or diarrhea or constipation or rectal bleeding or emesis or melena. : no gross hematuria or dysuria or frequency currently. Extremities: No edema of the lower extremities. Hematological: No focal masses anywhere and no easy bruising or bleeding tendency. Musculoskeletal: No deformities of the joints or the spine. Neurological: no vision changes or weakness or sensory changes. Physical Exam ECOG PS 1. General: alert, no acute distress HENMT: Normocephalic, atraumatic. Neck: supple and no LAP or thyromegaly. Cardiovascular: regular rate and rhythm, No murmurs Respiratory: Lungs CTA, respirations non labored. Abdomen: Soft nontender nondistended without hepatosplenomegaly or masses clinically. Extremities: no deformity, no edema. Lymph system: Currently she has no lymphadenopathy in her cervical area subclavian area/axillary areas and inguinal areas bilaterally. Neurological: oriented x 4, LOC appropriate for age, CN II-XII intact, motor strength equal & normal bilaterally, sensation normal bilaterally, speech normal Skin: No rash. Psychiatric: Normal mood and interaction. Diagnoses 1. Anemia (D64.9: Anemia, unspecified) 2. Other iron deficiency anemia (D50.9: Iron deficiency anemia, unspecified) 3. Thrombocytosis (D75.839: Thrombocytosis, unspecified) 4. 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 B12 deficiency (E53.8: Deficiency of other specified B group vitamins) His iron deficiency anemia of unclear etiology could be combination of malabsorption of iron and nutritional deficiency versus GI blood loss. Therefore we will obtain FOBT and send her to for screening colonoscopy and EGD as 3 years ago she had them at [place] by visiti (more content not included)...[facility]08-09-2024 Telephone encounter Note* Telephone Encounter - Miguel Ángel Parra - 03/24/2024 11:47 AM EDT Outside Cardiology office note and Pulmonary office note have been scanned in. [facility]08-09-2024 Miscellaneous Notes* Telephone Encounter - Miguel Ángel Parra - 03/24/2024 11:47 AM EDT Outside Cardiology office note and Pulmonary office note have been scanned in. * Telephone Encounter - Raegan Quinn RN - 03/24/2024 9:20 AM EDT Dos 04/[address]George Gomes's office Travel [employer]ist , They will be faxing over most recent cardiology office visit and all available testing. Spoke to Medical Records at [facility] . They will be faxing most recent pulmonary note from 02/[address] Martinez and most recent PFT's. Both will be faxed to [facility]. Raegan Quinn RN March 24, 2024 9:23 AM documented in this encounter[facility] Telephone encounter Note * Telephone Encounter - Raegan Quinn RN - 03/24/2024 9:20 AM EDT Dos 04/[address]George Gomes's office Travel Journalist , They will be faxing over most recent cardiology office visit and all available testing. Spoke to Medical Records at [facility] . They will be faxing most recent pulmonary note from 02/[address] Martinez and most recent PFT's. Both will be faxed to [facility]. Raegan Quinn RN March 24, 2024 9:23 AM [facility]08-06-2024 Instructions* Patient Instructions* Tawana Robertson PA-C - 03/21/2024 1:05 PM EDT Images from the original note were not included. [facility] PATIENT PREOPERATIVE INSTRUCTIONS María Guzman APRN.C* has scheduled you for your procedure at this surgery center: [facility] Scheduling Office: [phone] --[address] [place] [address]. Please read below carefully for your personalized instructions. Dietary Restrictions: - No solid food after midnight. - You may have 12 ounces of clear liquids (water, clear juices such as apple juice or gatorade, carbonated beverages, clear tea, black coffee, jello) until 2 hours before scheduled arrival at facility. Medications: Unless instructed differently below, stay on all of your medications until your surgery. If you start any new medications after today's visit, please contact your surgeon. Pre-Surgery Med Instructions Medication Instructions metFORMIN (GLUCOPHAGE) 500 mg tablet Do not take the day of surgery ipratropium-albuterol (DUONEB) 0.5 mg-3 mg(2.5 mg base)/3 mL nebu Use morning of surgery atorvastatin (LIPITOR) 80 mg tablet Take the day of surgery with a small sip of water potassium chloride (K-TAB) 10 mEq tablet Do not take the day of surgery esomeprazole (NEXIUM) 40 mg capsule Take the day of surgery with a small sip of water isosorbide mononitrate ER (IMDUR) 30 mg 24 hr tablet Take the day of surgery with a small sip of water aspirin, enteric coated (ASPIRIN, ENTERIC COATED) 81 mg EC tablet Take the day of surgery with a small sip of water amLODIPine (NORVASC) 10 mg tablet Take the day of surgery with a small sip of water furosemide (LASIX) 40 mg tablet Do not take the day of surgery If you start any new medications after today's visit, please contact the surgeon's office. Blood Thinning Medications: - Stop NSAIDS (Ibuprofen, Advil, Aleve, Motrin, Celebrex, Mobic, etc.) 7 days before surgery, as directed by your surgeon. - Do NOT stop aspirin or other anticoagulants without consulting with your skidder driver or prescribing physician. - Stop Vitamin E, ALL multi-vitamins, herbals and dietary supplements 7 days before surgery. - You may take Tylenol (Acetaminophen) or any of your pain medications that do not contain aspirin or NSAIDS as needed. Important Reminders: - If you are prescribed inhalers for breathing, continue using them. - Candy, mints, and tobacco products are NOT permitted the morning of surgery. - Hearing aids, dentures and glasses may be worn the morning of surgery. - NO jewelry, body piercings, makeup, hairpins or contacts are to be worn the day of surgery. If you develop symptoms such as a fever, cold, or flu, or have other changes to your health within TWO DAYS of scheduled surgery or the morning of surgery, please contact the surgery center above. Personal Belongings: -Please have photo ID and insurance cards. -If you do not have a copy of advance directives on file with us, please bring a copy with you on the day of surgery. - Leave ALL valuables and money at home or with family members. For Outpatient Procedures: - YOU MUST HAVE A RESPONSIBLE SALES PROMOTION DIRECTOR TAKE YOU HOME. A BUILDING CONSTRUCTION INSPECTOR OR HARDWARE DESIGNER CANNOT BE MADE A RESPONSIBLE SALES PROMOTION DIRECTOR. - We recommend that a responsible person stays with you overnight to take care of you. - You cannot stay in a hotel alone after outpatient surgery. You will not be permitted to have yoursurgery, if you do not have someone to take care of you. Arrival Time for Surgery: - To obtain your arrival time for surgery, call your physician's office the day before your surgery. - If your surgery is scheduled for Wednesday, call the Wednesday before. Your surgeon s project controls scheduler will tell you what time to call the office. - If you have not reached the departmental project controls scheduler by 5 P.M., call [phone] after 5 P.M. the day before your surgery. Please be aware that emergency situations arise, which may delay or change your surgical time. If this happens, we will notify you as soon as possible and regret any inconvenience. If you already have an Advance Directive, please fax a copy to [phone] or email to for it to be added to your chart. If you do not have an Advance Directive, you can find the appropriate form and more information at [email or web address]. We recommend that youcomplete the Advance Directive form found on the website and bring it with you the day of your surgery. It can be witnessed and scanned into your chart that day. Tawana Robertson PA-C [facility] History and physical note * Tawana Robertson PA-C - 03/21/2024 12:40 PM EDT Images from the original note were not included. [facility] HISTORY AND PHYSICAL EXAMINATION SERVICE DATE: 03/21/2024 SERVICE TIME: 12:53 PM PRIMARY CARE PHYSICIAN: Issac Conway MD Assessment Patient has the following medical conditions which may affect julio-operative course: COPD (chronic obstructive pulmonary disease) (HCC) -stable on Duoneb, wears 2L of home O2 most of the time -denies new or worsening cough or SOB -Follows with pulmonology Dr. Linda Martinez last visit 2-3 months ago, requested records Supplemental oxygen dependent -wears 2L of home O2 most of the time -SpO2 96% on room air -Follows with pulmonology Dr. Linda Martinez last visit 2-3 months ago CAD (coronary artery disease) -s/p PCI 2017, cardiac cath 02/2023 nonobstructive CAD -stable on aspirin and Imdur -denies new or worsening cardiac symptoms, EKG Pending -Follows with cardiology Dr. Ac Gomes last visit 07/27/23 HTN (hypertension) -stable on amlodipine and Lasix -BP in office 144/51 -denies new or worsening cardiac symptoms, EKG Pending -Follows with cardiology Dr. Ac Gomes last visit 07/27/23 HLD (hyperlipidemia) -stable on rx CHF (congestive heart failure) ([facility]) -per cardiology note recent echo EF 40%, requested records of recent echo -on Lasix -denies new or worsening cardiac symptoms, EKG Pending -Follows with cardiology Dr. Ac Gomes last visit 07/27/23 GERD (gastroesophageal reflux disease) -stable on PPI Type 2 diabetes mellitus without complication, without long-term current use of insulin (HCC) -stable on metformin -labs pending Aguilar Activity Status Index: METS: Take care of self; that is eating, dressing, bathing, using the toilet (2.75 METs) DASI Score: 2.75 Patient denies any chest pain or undue shortness of breath with the above physical activity. Clinical Frailty Scale: 4. Apparently vulnerable STOP-Bang Score: Has or is being treated for high blood pressure Patient over 50 years old STOP-Bang Score: 2 [id number] Score: CHF history: Yes Hypertension history: Yes Diabetes history: Yes [id number] Score: ARISCAT Score: Age: 51-80 Preoperative SpO2: >=96% Respiratory infection in the last month: No Preoperative anemia: Yes Surgical incision: upper abdominal Duration of surgery: >3 hrs Emergency procedure: No ARISCAT Score: 52 ANESTHESIA FINDINGS: Intubation History: No history of difficult intubation Significant Anesthesia Considerations: none Airway History: No history of difficult airway I - PHYSICAL EVALUATION AIRWAY Patient intubated: No. Mallampati: I. TM distance: >3 FB. Neck ROM: limited extension. Upper lip bite test: unable. DENTAL Dentures, upper: complete. Dentures, lower: complete. II - ANESTHESIA PLAN Anesthetic plan additional comments: *PACC/TCI - anesthesia choice. Beta Jordyn Monitoring Plan Post Procedure Analgesic Plan Prepared for Surgery: optimally prepared for surgery, pending [see comment]. LABS and EKG. CONSULTS: The following consults have been initiated at this time: cardiology and pulmonary. Planned Anesthetic: anesthesia choice Requested cardiology and pulmonology records for chart completeness. The Following Tests/Procedures Have Been Initiated: Orders Placed This Encounter Hemoglobin A1C Standing Status: Future Standing Expiration Date: 06/20/2024 Confirm Blood Type Standing Status: Future Standing Expiration Date: 06/20/2024 Order Specific Question: Did Blood Bank direct you to place this order: Answer: No - Presurgical Workflow REASON FOR VISIT: Johanna Macdonald is a 69 year old female who is scheduled for Procedure(s): HERNIORRHAPHY VENTRAL RECURRENT REDUCIBLE GREATER THAN 10cm (N/A) at the request of Dr. María Guzman for consultation. My final recommendation will be communicated back to the requesting physician by way of shared medical record or letter. Subjective The patient has the following: ACTIVE PROBLEM LIST Copd (Chronic Obstructive Pulmonary Disease) (Hcc) Supplemental Oxygen Dependent Cad (Coronary Artery Disease) Htn (Hypertension) Hld (Hyperlipidemia) Chf (Congestive Heart Failure) (Hcc) Gerd (Gastroesophageal Reflux Disease) Type 2 Diabetes Mellitus Without Complication, Without Long-Term Current Use of Insulin (Hcc) COVID-19 Immunization Status Overdue - Covid-19 Vaccine ( season) Never done No completion, postpone, frequency change, or communication history exists for this topic. CHIEF COMPLAINT: incisional hernia HPI: 69 year old year old female scheduled for HERNIORRHAPHY VENTRAL RECURRENT REDUCIBLE GREATER THAN 10cm on 04/07/2024. Patient has incisional hernia that has been present for a few years. She has had previous hernia repairs. Denies any fever, chills, nausea, vomiting, chest pain, abdominal pain, SOB. REVIEW OF SYSTEMS: General: Negative for: unintentional weight change, malaise and fever. Neurological: Negative for: ELECTRIC METER TESTER tumor, delirium, dementia, headaches, impaired sensorium, multiple sclerosis, Parkinson's disease, seizures, TIA and strokes. Respiratory: Follows with pulmonology Dr. Linda Martinez last visit 2-3 months ago Positive for: COPD and home oxygen. Patient is on 2L liter(s) of home O2. Negative for: asthma, bronchitis, dyspnea, pneumonia within 6 weeks, tobacco use, URI < 2 weeks and obstructive sleep apnea. Cardiovascular: Follows with cardiology Dr. Ac Gomes last visit 07/27/23 Positive for: CAD (S/p PCI 2017, cardiac cath 2022 nonobstructive CAD), CHF, hyperlipidemia and hypertension Negative for: angina, arrhythmia, chest pain, DVT/PE, recent CT and murmur/valvular heart disease. GI: Positive for: GERD Negative for: abdominal pain, GI bleed <30 days, heartburn, hepatitis, irritable bowel syndrome,inflammatory bowel disease, liver disease, nausea, pancreatitis, PUD and vomiting. : Negative for: dysuria, frequent urination, hematuria, urinary incontinence, nephrolithiasis, renal failure, urgency and urinary tract infection. OBSTETRICS TECH: Negative for abnormal vaginal bleeding, abnormal vaginal discharge. Endocrine: Positive for: diabetes mellitus. Negative for: hyperthyroidism, hypothyroidism, hyperparathyroidism and steroid for chronic problem. Hematology: Negative for: anemia, hemophilia, thrombocytopenia and chronic anti- coagulation/platelet meds. Oncology: Hx of gynecological cancer s/p hysterectomy Psych: Negative for: ADD, ADHD, anxiety, bipolar disorder, depression and drug dependency. Musculoskeletal: Negative for: back pain and joint pain. Skin: Negative for: lesions, itching and rash. PAST MEDICAL HISTORY 03/21/2024: CAD (coronary artery disease) 03/21/2024: CHF (congestive heart failure) ([facility]) 03/21/2024: COPD (chronic obstructive pulmonary disease) ([facility]) 03/21/2024: GERD (gastroesophageal reflux disease) 03/21/2024: HLD (hyperlipidemia) 03/21/2024: HTN (hypertension) 03/21/2024: Supplemental oxygen dependent PAST SURGICAL HISTORY No date: CHOLECYSTECTOMY HX No date: PAST SURGICAL HISTORY OF Comment: hernia repair No date: PAST SURGICAL HISTORY OF Comment: cardiac cath w/ PCI No date: PAST SURGICAL HISTORY OF Comment: tumor removed from right arm No date: PAST SURGICAL HISTORY OF Comment: hysterectomy No date: PAST SURGICAL HISTORY OF Comment: eye surgery FAMILY HISTORY Problem Relation Age of Onset Anesthesia Problems No Family History Social History Tobacco Use Smoking status: Every Day Packs/day: 1.50 Years: 30.00 Additional pack years: 0.00 Total pack years: 45.00 Types: Cigarettes Smokeless tobacco: Never Substance Use Topics Alcohol use: Never Drug use: Never Prior to Admission medications as of 03/21/24 1326 Medication Sig Last Dose Taking metFORMIN (GLUCOPHAGE) 500 mg tablet Take 1 tablet every day by oral route for 90 days. Taking Yes ipratropium-albuterol (DUONEB) 0.5 mg-3 mg(2.5 mg base)/3 mL nebu INHALE 3 (THREE) mls BY MOUTH viaNEBULIZER FOUR TIMES DAILY Taking Yes atorvastatin (LIPITOR) 80 mg tablet Take 1 tablet by mouth daily at bedtime. Taking Yes potassium chloride (K-TAB) 10 mEq tablet Take 1 tablet by mouth every 48 hours. Taking Yes esomeprazole (NEXIUM) 40 mg capsule Take 40 mg by mouth two times a day. Taking Yes isosorbide mononitrate ER (IMDUR) 30 mg 24 hr tablet Take 1 tablet by mouth every morning. Taking Yes aspirin, enteric coated (ASPIRIN, ENTERIC COATED) 81 mg EC tablet in the morning. Taking Yes amLODIPine (NORVASC) 10 mg tablet Take 10 mg by mouth once daily. Taking Yes furosemide (LASIX) 40 mg tablet Take 40 mg by mouth once daily. Taking Yes No medication comments found. ALLERGIES Allergen Reactions Atenolol Anaphylaxis, Unknown Throat swelling. Doxycycline Unknown Pseudoephedrine Intolerance Amoxicillin Itching, Other: See Comments Cephalexin Itching, Rash Ciprofloxacin Itching, Rash Clarithromycin Itching, Rash Quinidine Itching Red Dye Unknown Icing Sulfa (Sulfonamide * Itching, Unknown Objective PHYSICAL EXAM: General: alert and oriented and healthy appearance. Pertinent negatives noted - not distressed. Skin: normal color, no rash or lesions. HEENT: EOM intact. Pertinent negatives noted - no carotid bruit. Cardiovascular: regular rate and rhythm, normal S1 and S2, no rub, murmurs, or gallop. Respiratory: normal breath sounds, no wheezes or crackles. No chest wall deformity or tenderness. Abdomen: Pertinent negatives noted - not distended. Extremities: no deformity, no edema or tenderness, no joint swelling or clubbing. Neurological: normal cognition and motor skills. Gait normal. No weakness or sensory deficit. PAIN ASSESSMENT: VITALS: BP 144/51 Pulse 71 Temp (Src) 98 (Oral) Ht 4' 11 (1.50m) Wt 160 lb 15 oz (73.0kg) SpO2 96% BMI 32.49 kg/(m^2). Diagnostic tests reviewed for today's visit: Lab Value Units Date High Low HB No results within date range. HCT No results within date range. WBC No results within date range. PLT No results within date range. NA No results within date range. K No results within date range. GLUC No results within date range. BUN No results within date range. CREAT No results within date range. PTSEC No results within date range. INR No results within date range. APTT No results within date range. ALT No results within date range. AST No results within date range. TBILI No results within date range. TSH No results within date range. Lab Value Units Date High Low HCGQT No results within date range. UHCG No results within date range. HCG, BODY* No results within date range. Lab Value Units Date High Low ABORHD No results within date range. ABSCREEN No results within date range. No results found for: HBA1C No results found for this or any previous visit (from the past 8760 hour(s)). No results found for this or any previous visit (from the past 93879 hour(s)). Cardiac cath 02/17/23 in Impression/Findings: Coronary angiogram shows nonobstructive coronary artery disease with 50% eccentric stenosis in the mid RCA and patent previously placed distal RCA stents with mild to moderate disease elsewhere. Plan: Medical therapy for coronary artery disease. Aspirin 81 mg daily for life. Statin therapy for life. Maximize antianginal therapy. Guideline directed medical therapy for heart failure. Risk factor control. Instructions Given to Patient: Instructions located in the after visit summary. Patient given verbal and written preop instructions and voices comprehension and compliance. SIGNATURE: Tawana Robertson PA-C PATIENT NAME: Johanna Macdonald DATE: March 21, 2024 TIME: 1:27 PM PAGER/CONTACT #: [facility] History and physical note* Tawana Robertson PA-C - 03/21/2024 12:40 PM EDT Images from the original note were not included. [facility] HISTORY AND PHYSICAL EXAMINATION SERVICE DATE: 03/21/2024 SERVICE TIME: 12:53 PM PRIMARY CARE PHYSICIAN: Issac Conway MD Assessment Patient has the following medical conditions which may affect julio-operative course: COPD (chronic obstructive pulmonary disease) ([facility]) -stable on Duoneb, wears 2L of home O2 most of the time -denies new or worsening cough or SOB -Follows with pulmonology Dr. Linda Martinez last visit 2-3 months ago, requested records Supplemental oxygen dependent -wears 2L of home O2 most of the time -SpO2 96% on room air -Follows with pulmonology Dr. Linda Martinez last visit 2-3 months ago CAD (coronary artery disease) -s/p PCI 2017, cardiac cath 02/2023 nonobstructive CAD -stable on aspirin and Imdur -denies new or worsening cardiac symptoms, EKG Pending -Follows with cardiology Dr. Ac Gomes last visit 07/27/23 HTN (hypertension) -stable on amlodipine and Lasix -BP in office 144/51 -denies new or worsening cardiac symptoms, EKG Pending -Follows with cardiology Dr. Ac Gomes last visit 07/27/23 HLD (hyperlipidemia) -stable on rx CHF (congestive heart failure) ([facility]) -per cardiology note recent echo EF 40%, requested records of recent echo -on Lasix -denies new or worsening cardiac symptoms, EKG Pending -Follows with cardiology Dr. Ac Gomes last visit 07/27/23 GERD (gastroesophageal reflux disease) -stable on PPI Type 2 diabetes mellitus without complication, without long-term current use of insulin (HCC) -stable on metformin -labs pending Aguilar Activity Status Index: METS: Take care of self; that is eating, dressing, bathing, using the toilet (2.75 METs) DASI Score: 2.75 Patient denies any chest pain or undue shortness of breath with the above physical activity. Clinical Frailty Scale: 4. Apparently vulnerable STOP-Bang Score: Has or is being treated for high blood pressure Patient over 50 years old STOP-Bang Score: 2 [id number] Score: CHF history: Yes Hypertension history: Yes Diabetes history: Yes [id number] Score: ARISCAT Score: Age: 51-80 Preoperative SpO2: >=96% Respiratory infection in the last month: No Preoperative anemia: Yes Surgical incision: upper abdominal Duration of surgery: >3 hrs Emergency procedure: No ARISCAT Score: 52 ANESTHESIA FINDINGS: Intubation History: No history of difficult intubation Significant Anesthesia Considerations: none Airway History: No history of difficult airway I - PHYSICAL EVALUATION AIRWAY Patient intubated: No. Mallampati: I. TM distance: >3 FB. Neck ROM: limited extension. Upper lip bite test: unable. DENTAL Dentures, upper: complete. Dentures, lower: complete. II - ANESTHESIA PLAN Anesthetic plan additional comments: *PACC/TCI - anesthesia choice. Beta Jordyn Monitoring Plan Post Procedure Analgesic Plan Prepared for Surgery: optimally prepared for surgery, pending [see comment]. LABS and EKG. CONSULTS: The following consults have been initiated at this time: cardiology and pulmonary. Planned Anesthetic: anesthesia choice Requested cardiology and pulmonology records for chart completeness. The Following Tests/Procedures Have Been Initiated: Orders Placed This Encounter Hemoglobin A1C Standing Status: Future Standing Expiration Date: 06/20/2024 Confirm Blood Type Standing Status: Future Standing Expiration Date: 06/20/2024 Order Specific Question: Did Blood Bank direct you to place this order: Answer: No - Presurgical Workflow REASON FOR VISIT: Johanna Macdonald is a 69 year old female who is scheduled for Procedure(s): HERNIORRHAPHY VENTRAL RECURRENT REDUCIBLE GREATER THAN 10cm (N/A) at the request of Dr. María Guzman for consultation. My final recommendation will be communicated back to the requesting physician by way of shared medical record or letter. Subjective The patient has the following: ACTIVE PROBLEM LIST Copd (Chronic Obstructive Pulmonary Disease) ([facility]) Supplemental Oxygen Dependent Cad (Coronary Artery Disease) Htn (Hypertension) Hld (Hyperlipidemia) Chf (Congestive Heart Failure) ([facility]) Gerd (Gastroesophageal Reflux Disease) Type 2 Diabetes Mellitus Without Complication, Without Long-Term Current Use of Insulin ([facility]) COVID-19 Immunization Status Overdue - Covid-19 Vaccine (2022- season) Never done No completion, postpone, frequency change, or communication history exists for this topic. CHIEF COMPLAINT: incisional hernia HPI: 69 year old year old female scheduled for HERNIORRHAPHY VENTRAL RECURRENT REDUCIBLE GREATER THAN 10cm on 04/07/2024. Patient has incisional hernia that has been present for a few years. She has had previous hernia repairs. Denies any fever, chills, nausea, vomiting, chest pain, abdominal pain, SOB. REVIEW OF SYSTEMS: General: Negative for: unintentional weight change, malaise and fever. Neurological: Negative for: ELECTRIC METER TESTER tumor, delirium, dementia, headaches, impaired sensorium, multiple sclerosis, Parkinson's disease, seizures, TIA and strokes. Respiratory: Follows with pulmonology Dr. Linda Martinez last visit 2-3 months ago Positive for: COPD and home oxygen. Patient is on 2L liter(s) of home O2. Negative for: asthma, bronchitis, dyspnea, pneumonia within 6 weeks, tobacco use, URI < 2 weeks and obstructive sleep apnea. Cardiovascular: Follows with cardiology Dr. Ac Gomes last visit 07/27/23 Positive for: CAD (S/p PCI 2017, cardiac cath 2022 nonobstructive CAD), CHF, hyperlipidemia and hypertension Negative for: angina, arrhythmia, chest pain, DVT/PE, recent CT and murmur/valvular heart disease. GI: Positive for: GERD Negative for: abdominal pain, GI bleed <30 days, heartburn, hepatitis, irritable bowel syndrome,inflammatory bowel disease, liver disease, nausea, pancreatitis, PUD and vomiting. : Negative for: dysuria, frequent urination, hematuria, urinary incontinence, nephrolithiasis, renal failure, urgency and urinary tract infection. OBSTETRICS TECH: Negative for abnormal vaginal bleeding, abnormal vaginal discharge. Endocrine: Positive for: diabetes mellitus. Negative for: hyperthyroidism, hypothyroidism, hyperparathyroidism and steroid for chronic problem. Hematology: Negative for: anemia, hemophilia, thrombocytopenia and chronic anti- coagulation/platelet meds. Oncology: Hx of gynecological cancer s/p hysterectomy Psych: Negative for: ADD, ADHD, anxiety, bipolar disorder, depression and drug dependency. Musculoskeletal: Negative for: back pain and joint pain. Skin: Negative for: lesions, itching and rash. PAST MEDICAL HISTORY 03/21/2024: CAD (coronary artery disease) 03/21/2024: CHF (congestive heart failure) ([facility]) 03/21/2024: COPD (chronic obstructive pulmonary disease) ([facility]) 03/21/2024: GERD (gastroesophageal reflux disease) 03/21/2024: HLD (hyperlipidemia) 03/21/2024: HTN (hypertension) 03/21/2024: Supplemental oxygen dependent PAST SURGICAL HISTORY No date: CHOLECYSTECTOMY HX No date: PAST SURGICAL HISTORY OF Comment: hernia repair No date: PAST SURGICAL HISTORY OF Comment: cardiac cath w/ PCI No date: PAST SURGICAL HISTORY OF Comment: tumor removed from right arm No date: PAST SURGICAL HISTORY OF Comment: hysterectomy No date: PAST SURGICAL HISTORY OF Comment: eye surgery FAMILY HISTORY Problem Relation Age of Onset Anesthesia Problems No Family History Social History Tobacco Use Smoking status: Every Day Packs/day: 1.50 Years: 30.00 Additional pack years: 0.00 Total pack years: 45.00 Types: Cigarettes Smokeless tobacco: Never Substance Use Topics Alcohol use: Never Drug use: Never Prior to Admission medications as of 03/21/24 1326 Medication Sig Last Dose Taking metFORMIN (GLUCOPHAGE) 500 mg tablet Take 1 tablet every day by oral route for 90 days. Taking Yes ipratropium-albuterol (DUONEB) 0.5 mg-3 mg(2.5 mg base)/3 mL nebu INHALE 3 (THREE) mls BY MOUTH viaNEBULIZER FOUR TIMES DAILY Taking Yes atorvastatin (LIPITOR) 80 mg tablet Take 1 tablet by mouth daily at bedtime. Taking Yes potassium chloride (K-TAB) 10 mEq tablet Take 1 tablet by mouth every 48 hours. Taking Yes esomeprazole (NEXIUM) 40 mg capsule Take 40 mg by mouth two times a day. Taking Yes isosorbide mononitrate ER (IMDUR) 30 mg 24 hr tablet Take 1 tablet by mouth every morning. Taking Yes aspirin, enteric coated (ASPIRIN, ENTERIC COATED) 81 mg EC tablet in the morning. Taking Yes amLODIPine (NORVASC) 10 mg tablet Take 10 mg by mouth once daily. Taking Yes furosemide (LASIX) 40 mg tablet Take 40 mg by mouth once daily. Taking Yes No medication comments found. ALLERGIES Allergen Reactions Atenolol Anaphylaxis, Unknown Throat swelling. Doxycycline Unknown Pseudoephedrine Intolerance Amoxicillin Itching, Other: See Comments Cephalexin Itching, Rash Ciprofloxacin Itching, Rash Clarithromycin Itching, Rash Quinidine Itching Red Dye Unknown Icing Sulfa (Sulfonamide * Itching, Unknown Objective PHYSICAL EXAM: General: alert and oriented and healthy appearance. Pertinent negatives noted - not distressed. Skin: normal color, no rash or lesions. HEENT: EOM intact. Pertinent negatives noted - no carotid bruit. Cardiovascular: regular rate and rhythm, normal S1 and S2, no rub, murmurs, or gallop. Respiratory: normal breath sounds, no wheezes or crackles. No chest wall deformity or tenderness. Abdomen: Pertinent negatives noted - not distended. Extremities: no deformity, no edema or tenderness, no joint swelling or clubbing. Neurological: normal cognition and motor skills. Gait normal. No weakness or sensory deficit. PAIN ASSESSMENT: VITALS: BP 144/51 Pulse 71 Temp (Src) 98 (Oral) Ht 4' 11 (1.50m) Wt 160 lb 15 oz (73.0kg) SpO2 96% BMI 32.49 kg/(m^2). Diagnostic tests reviewed for today's visit: Lab Value Units Date High Low HB No results within date range. HCT No results within date range. WBC No results within date range. PLT No results within date range. NA No results within date range. K No results within date range. GLUC No results within date range. BUN No results within date range. CREAT No results within date range. PTSEC No results within date range. INR No results within date range. APTT No results within date range. ALT No results within date range. AST No results within date range. TBILI No results within date range. TSH No results within date range. Lab Value Units Date High Low HCGQT No results within date range. UHCG No results within date range. HCG, BODY* No results within date range. Lab Value Units Date High Low ABORHD No results within date range. ABSCREEN No results within date range. No results found for: HBA1C No results found for this or any previous visit (from the past 8760 hour(s)). No results found for this or any previous visit (from the past 33458 hour(s)). Cardiac cath 02/17/23 in Impression/Findings: Coronary angiogram shows nonobstructive coronary artery disease with 50% eccentric stenosis in the mid RCA and patent previously placed distal RCA stents with mild to moderate disease elsewhere. Plan: Medical therapy for coronary artery disease. Aspirin 81 mg daily for life. Statin therapy for life. Maximize antianginal therapy. Guideline directed medical therapy for heart failure. Risk factor control. Instructions Given to Patient: Instructions located in the after visit summary. Patient given verbal and written preop instructions and voices comprehension and compliance. SIGNATURE: Tawana Robertson PA-C PATIENT NAME: Johanna Macdonald DATE: March 21, 2024 TIME: 1:27 PM PAGER/CONTACT #: documented in [facility] NotePatient Education Nutrition BMI for Adults What is BMI? Body mass index (BMI) is a number that is calculated from a person's weight and height. BMI can help estimate how much of a person's weight is composed of fat. BMI does not measure body fat directly.Rather, it is an alternative to procedures that directly measure body fat, which can be difficult and expensive. BMI can help identify people who may be at higher risk for certain medical problems. What are BMI measurements used for? BMI is used as a screening tool to identify possible weight problems. It helps determine whether a person is obese, overweight, a healthy weight, or underweight. BMI is useful for: ? Identifying a weight problem that may be related to a medical condition or may increase the risk for medical problems. ? Promoting changes, such as changes in diet and exercise, to help reach a healthy weight. BMI screening can be repeated to see if these changes are working. How is BMI calculated? BMI involves measuring your weight in relation to your height. Both height and weight are measured,and the BMI is calculated from those numbers. This can be done either in [place] or metric measurements. Note that charts and online BMI calculators are available to help you find your BMI quickly and easily without having to do these calculations yourself. To calculate your BMI in [place] measurements: 1. Measure your weight in pounds (lb). 2. Multiply the number of pounds by 703. ? For example, for a person who weighs 180 lb, multiply that number by 703, which equals 126,540. 3. Measure your height in inches. Then multiply that number by itself to get a measurement called inches squared. ? For example, for a person who is 70 inches tall, the inches squared measurement is 70 inches x 70 inches, which equals 4,900 inches squared. 4. Divide the total from step 2 (number of lb x 703) by the total from step 3 (inches squared): 126,540 ? 4,900 = 25.8. This is your BMI. To calculate your BMI in metric measurements: 1. Measure your weight in kilograms (kg). 2. Measure your height in meters (m). Then multiply that number by itself to get a measurement called meters squared. ? For example, for a person who is 1.75 m tall, the meters squared measurement is 1.75 m x 1.75 m, which is equal to 3.1 meters squared. 3. Divide the number of kilograms (your weight) by the meters squared number. In this example: 70 ?3.1 = 22.6. This is your BMI. What do the results mean? BMI charts are used to identify whether you are underweight, normal weight, overweight, or obese. The following guidelines will be used: ? Underweight: BMI less than 18.5. ? Normal weight: BMI between 18.5 and 24.9. ? Overweight: BMI between 25 and 29.9. ? Obese: BMI of 30 or above. Keep these notes in mind: ? Weight includes both fat and muscle, so someone with a muscular build, such as an athlete, may have a BMI that is higher than 24.9. In cases like these, BMI is not an accurate measure of body fat. ? To determine if excess body fat is the cause of a BMI of 25 or higher, further assessments may need to be done by a health care provider. ? BMI is usually interpreted in the same way for men and women. Where to find more information For more information about BMI, including tools to quickly calculate your BMI, go to these websites: ? Centers for Disease Control and Prevention: www.cdc.gov ? [place] [employer]: www.heart.org ? National Heart, Lung, and Blood [place]: www.nhlbi.nih.gov Summary ? Body mass index (BMI) is a number that is calculated from a person's weight and height. ? BMI may help estimate how much of a person's weight is composed of fat. BMI can help identify those who may be at higher risk for certain medical problems. ? BMI can be measured using [place] measurements or metric measurements. ? BMI charts are used to identify whether you are underweight, normal weight, overweight, or obese. This information is not intended to replace advice given to you by your health care provider. Make sure you discuss any questions you have with your health care provider. Document Revised: 04/24/2020 Document Reviewed: 03/01/2020 [place] Patient Education ? 2022 [employer].[facility] 02-15-2024 NotePatient Education Endocrinology Diabetes Mellitus and Nutrition, Adult When you have diabetes, or diabetes mellitus, it is very important to have healthy eating habits because your blood sugar (glucose) levels are greatly affected by what you eat and drink. Eating healthy foods in the right amounts, at about the same times every day, can help you: ? Manage your blood glucose. ? Lower your risk of heart disease. ? Improve your blood pressure. ? Reach or maintain a healthy weight. What can affect my meal plan? Every person with diabetes is different, and each person has different needs for a meal plan. Your health care provider may recommend that you work with a dietitian to make a meal plan that is best for you. Your meal plan may vary depending on factors such as: ? The calories you need. ? The medicines you take. ? Your weight. ? Your blood glucose, blood pressure, and cholesterol levels. ? Your activity level. ? Other health conditions you have, such as heart or kidney disease. How do carbohydrates affect me? Carbohydrates, also called carbs, affect your blood glucose level more than any other type of food.Eating carbs raises the amount of glucose in your blood. It is important to know how many carbs you can safely have in each meal. This is different for every person. Your dietitian can help you calculate how many carbs you should have at each meal and for each snack. How does alcohol affect me? Alcohol can cause a decrease in blood glucose (hypoglycemia), especially if you use insulin or takecertain diabetes medicines by mouth. Hypoglycemia can be a life-threatening condition. Symptoms of hypoglycemia, such as sleepiness, dizziness, and confusion, are similar to symptoms of having too much alcohol. ? Do not drink alcohol if: ? Your health care provider tells you not to drink. ? You are , may be , or are planning to become . ? If you drink alcohol: ? Limit how much you have to: ? 0?1 drink a day for women. ? 0?2 drinks a day for men. ? Know how much alcohol is in your drink. In the [place] one drink equals one 12 oz bottle of beer (355 mL), one 5 oz glass of wine (148 mL), or one 1? oz glass of hard liquor (44 mL). ? Keep yourself hydrated with water, diet soda, or unsweetened iced tea. Keep in mind that regular soda, juice, and other mixers may contain a lot of sugar and must be counted as carbs. What are tips for following this plan? Reading food labels ? Start by checking the serving size on the Nutrition Facts label of packaged foods and drinks. Thenumber of calories and the amount of carbs, fats, and other nutrients listed on the label are basedon one serving of the item. Many items contain more than one serving per package. ? Check the total grams (g) of carbs in one serving. ? Check the number of grams of saturated fats and trans fats in one serving. Choose foods that havea low amount or none of these fats. ? Check the number of milligrams (mg) of salt (sodium) in one serving. Most people should limit total sodium intake to less than 2,300 mg per day. ? Always check the nutrition information of foods labeled as low-fat or nonfat. These foods maybe higher in added sugar or refined carbs and should be avoided. ? Talk to your dietitian to identify your daily goals for nutrients listed on the label. Shopping ? Avoid buying canned, pre-made, or processed foods. These foods tend to be high in fat, sodium, and added sugar. ? Shop around the outside edge of the grocery store. This is where you will most often find fresh fruits and vegetables, bulk grains, fresh meats, and fresh dairy products. Cooking ? Use low-heat cooking methods, such as baking, instead of high-heat cooking methods, such as deep frying. ? Cook using healthy oils, such as olive, canola, or sunflower oil. ? Avoid cooking with butter, cream, or high-fat meats. Meal planning ? Eat meals and snacks regularly, preferably at the same times every day. Avoid going long periods of time without eating. ? Eat foods that are high in fiber, such as fresh fruits, vegetables, beans, and whole grains. ? Eat 4?6 oz (112?168 g) of lean protein each day, such as lean meat, chicken, fish, eggs, or tofu.One ounce (oz) (28 g) of lean protein is equal to: ? 1 oz (28 g) of meat, chicken, or fish. ? 1 egg. ? ? cup (62 g) of tofu. ? Eat some foods each day that contain healthy fats, such as avocado, nuts, seeds, and fish. What foods should I eat? Fruits Berries. Apples. Oranges. Peaches. Apricots. Plums. Grapes. Mangoes. Papayas. Pomegranates. Kiwi. Cherries. Vegetables Leafy greens, including lettuce, spinach, kale, chard, edda greens, mustard greens, and cabbage.Beets. Cauliflower. Broccoli. Carrots. Green beans. Tomatoes. Peppers. Onions. Cucumbers. [place] sprouts. Grains Whole grains, such as whole-wheat or whole-grain bread, crackers, tortillas, cereal, and pasta. U (more content not included)...[facility] 01-25-2024 Hospital Discharge instructions Follow Up Care 01/25/2024 14:15:01 With:Marta GUY, Marianne Carney, ORESTES, ONC Address: When: Unknown Comments:IM B12 injection today.Start oral B12 1000 mcg daily of the different brand other than drug Ariel.IViron infusion starting next week x 3 doses.Proceed with the hernia surgery at the [facility] as scheduled.Labs in 3 months.Return in 3 months with me. [facility] 06-11-2024 Hospital Discharge instructions Patient Education 01/25/2024 13:45:12 Iron-Rich Diet Iron-Rich Diet Iron is a mineral that helps your body produce hemoglobin. Hemoglobin is a protein in red blood cells that carries oxygen to your body's tissues. Eating too little iron may cause you to feel weak andtired, and it can increase your risk of infection. Iron is naturally found in many foods, and many foods have iron added to them (are iron-fortified). You may need to follow an iron-rich diet if you do not have enough iron in your body due to certainmedical conditions. The amount of iron that you need each day depends on your age, your sex, and any medical conditions you have. Follow instructions from your health care provider or a dietitian about how much iron you should eat each day. What are tips for following this plan? Reading food labels Check food labels to see how many milligrams (mg) of iron are in each serving. Cooking Cook foods in pots and pans that are made from iron. Take these steps to make it easier for your body to absorb iron from certain foods: ?Soak beans overnight before cooking. ?Soak whole grains overnight and drain them before using. ?Ferment flours before baking, such as by using yeast in bread dough. Meal planning When you eat foods that contain iron, you should eat them with foods that are high in vitamin C. These include oranges, peppers, tomatoes, potatoes, and mangoes. Vitamin C helps your body absorb iron. Certain foods and drinks prevent your body from absorbing iron properly. Avoid eating these foods in the same meal as iron-rich foods or with iron supplements. These foods include: ?Coffee, black tea, and red wine. ?Milk, dairy products, and foods that are high in calcium. ?Beans and soybeans. ?Whole grains. General information Take iron supplements only as told by your health care provider. An overdose of iron can be life-threatening. If you were prescribed iron supplements, take them with orange juice or a vitamin C supplement. When you eat iron-fortified foods or take an iron supplement, you should also eat foods that naturally contain iron, such as meat, poultry, and fish. Eating naturally iron-rich foods helps your body absorb the iron that is added to other foods or contained in a supplement. Iron from animal sources is better absorbed than iron from plant sources. What foods should I eat? Fruits Prunes. Raisins. Eat fruits high in vitamin C, such as oranges, grapefruits, and strawberries, with iron-rich foods. Vegetables Spinach (cooked). Green peas. Broccoli. Fermented vegetables. Eat vegetables high in vitamin C, such as leafy greens, potatoes, [place] peppers, and tomatoes, with iron-rich foods. Grains Iron-fortified breakfast cereal. Iron-fortified whole-wheat bread. Enriched rice. Sprouted grains. Meats and other proteins Beef liver. Beef. [place]. Chicken. Oysters. Shrimp. Tuna. Sardines. Chickpeas. Nuts. Tofu. Pumpkin seeds. Beverages Tomato juice. Fresh orange juice. Prune juice. Hibiscus tea. Iron-fortified instant breakfast shakes. Sweets and desserts Blackstrap molasses. Seasonings and condiments Tahini. Fermented soy sauce. Other foods Wheat germ. The items listed above may not be a complete list of recommended foods and beverages. Contact a dietitian for more information. What foods should I limit? These are foods that should be limited while eating iron-rich foods as they can reduce the absorption of iron in your body. Grains Whole grains. Bran cereal. Bran flour. Meats and other proteins Soybeans. Products made from soy protein. Black beans. Lentils. Mung beans. Split peas. Dairy Milk. Cream. Cheese. Yogurt. Cottage cheese. Beverages Coffee. Black tea. Red wine. Sweets and desserts [place]. Chocolate. Ice cream. Seasonings and condiments Basil. Oregano. Large amounts of parsley. The items listed above may not be a complete list of foods and beverages you should limit. Contact a dietitian for more information. Summary Iron is a mineral that helps your body produce hemoglobin. Hemoglobin is a protein in red blood cells that carries oxygen to your body's tissues. Iron is naturally found in many foods, and many foods have iron added to them (are iron-fortified). When you eat foods that contain iron, you should eat them with foods that are high in vitamin C. Vitamin C helps your body absorb iron. Certain foods and drinks prevent your body from absorbing iron properly, such as whole grains and dairy products. You should avoid eating these foods in the same meal as iron-rich foods or with iron supplements. This information is not intended to replace advice given to you by your health care provider. Make sure you discuss any questions you have with your health care provider. Document Revised: 07/14/2021 Document Reviewed: 07/14/2021 [place] Patient Education 2022 [employer]. 01/25/2024 13:45:09 Vitamin B12 Deficiency, [place] Vitamin B12 Deficiency Vitamin B12 deficiency means that your body does not have enough vitamin B12. The body needs this important vitamin: To make red blood cells. To make genes (DNA). To help the nerves work. If you do not have enough vitamin B12 in your body, you can have health problems, such as not having enough red blood cells in the blood (anemia). What are the causes? Not eating enough foods that contain vitamin B12. Not being able to take in (absorb) vitamin B12 from the food that you eat. Certain diseases. A condition in which the body does not make enough of a certain protein. This results in your body not taking in enough vitamin B12. Having a surgery in which part of the stomach or small intestine is taken out. Taking medicines that make it hard for the body to take in vitamin B12. These include: ?Heartburn medicines. ?Some medicines that are used to treat diabetes. What increases the risk? Being an older adult. Eating a vegetarian or vegan diet that does not include any foods that come from animals. Not eating enough foods that contain vitamin B12 while you are . Taking certain medicines. Having alcoholism. What are the signs or symptoms? In some cases, there are no symptoms. If the condition leads to too few blood cells or nerve damage, symptoms can occur, such as: Feeling weak or tired. Not being hungry. Losing feeling (numbness) or tingling in your hands and feet. Redness and burning of the tongue. Feeling sad (depressed). Confusion or memory problems. Trouble walking. If anemia is very bad, symptoms can include: Being short of breath. Being dizzy. Having a very fast heartbeat. How is this treated? Changing the way you eat and drink, such as: ?Eating more foods that contain vitamin B12. ?Drinking little or no alcohol. Getting vitamin B12 shots. Taking vitamin B12 supplements by mouth (orally). Your doctor will tell you the dose that is best for you. Follow these instructions at home: Eating and drinking Eat foods that come from animals and have a lot of vitamin B12 in them. These include: ?Meats and poultry. This includes beef, pork, chicken, turkey, and organ meats, such as liver. ?Seafood, such as clams, rainbow trout, salmon, tuna, and heidi. ?Eggs. ?Dairy foods such as milk, yogurt, and cheese. Eat breakfast cereals that have vitamin B12 added to them (are fortified). Check the label. The items listed above may not be a complete list of foods and beverages you can eat and drink. Contact a dietitian for more information. Alcohol use Do not drink alcohol if: ?Your doctor tells you not to drink. ?You are , may be , or are planning to become . If you drink alcohol: ?Limit how much you have to: ?0 1 drink a day for women. ?0 2 drinks a day for men. ?Know how much alcohol is in your drink. In the [place] one drink equals one 12 oz bottle of beer (355 mL), one 5 oz glass of wine (148 mL), or one 1 oz glass of hard liquor (44 mL). General instructions Get any vitamin B12 shots if told by your doctor. Take supplements only as told by your doctor. Follow the directions. Keep all follow-up visits. Contact a doctor if: Your symptoms come back. Your symptoms get worse or do not get better with treatment. Get help right away if: You have trouble breathing. You have a very fast heartbeat. You have chest pain. You get dizzy. You faint. These symptoms may be an emergency. Get help right away. Call 911. Do not wait to see if the symptoms will go away. Do not drive yourself to the hospital. Summary Vitamin B12 deficiency means that your body is not getting enough of the vitamin. In some cases, there are no symptoms of this condition. Treatment may include making a change in the way you eat and drink, getting shots, or taking supplements. Eat foods that have vitamin B12 in them. This information is not intended to replace advice given to you by your health care provider. Make sure you discuss any questions you have with your health care provider. Document Revised: 03/27/2022 Document Reviewed: 03/27/2022 [place] Patient Education 2022 [employer]. 01/25/2024 13:44:16 Iron Deficiency Anemia, Adult, Wjcw-yb-Ggqf Iron Deficiency Anemia, Adult Iron deficiency anemia is when you do not have enough red blood cells or hemoglobin in your blood. This happens because you have too little iron in your body. Hemoglobin carries oxygen to parts of the body. Anemia can cause your body to not get enough oxygen. What are the causes? Not eating enough foods that have iron in them. The body not being able to take in iron well. Blood loss. What increases the risk? Having menstrual periods. Being . What are the signs or symptoms? Pale skin, lips, and nails. Weakness, dizziness, and getting tired easily. Feeling like you cannot breathe well when moving (shortness of breath). Cold hands and feet. Mild anemia may not cause any symptoms. How is this treated? This condition is treated by finding out why you do not have enough iron and then getting more iron. It may include: Adding foods to your diet that have a lot of iron. Taking iron pills (supplements). If you are or , you may need to take extra iron. Your diet often does not provide the amount of iron that you need. Getting more vitamin C in your diet. Vitamin C helps your body take in iron. You may need to take iron pills with a glass of orange juice or vitamin C pills. 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 Surgery or testing procedures to find what is causing the condition. You may need blood tests to see if treatment is working. If the treatment does not seem to be working, you may need more tests. Follow these instructions at home: Medicines Take agdf-ypj-dvqrjfi and prescription medicines only as told by your doctor. This includes iron pills and vitamins. Taking them as told is important because too much iron can be harmful. ?Take iron pills when your stomach is empty. If you cannot handle this, take them with food. ?Do not drink milk or take antacids at the same time as your iron pills. ?Iron pills may turn your poop (stool)black. If you cannot handle taking iron pills by mouth, ask your doctor about getting iron through: ?An IV tube. ?A shot (injection) into a muscle. Eating and drinking Talk with your doctor before changing the foods you eat. Your doctor may tell you to eat foods thathave a lot of iron, such as: ?Liver. ?Low-fat (lean) beef. ?Breads and cereals that have iron added to them. ?Eggs. ?Dried fruit. ?Dark green, leafy vegetables. Eat fresh fruits and vegetables that are high in vitamin C. They help your body use iron. Foods with a lot of vitamin C include: ?Oranges. ?Peppers. ?Tomatoes. ?Mangoes. Managing constipation If you are taking iron pills, they may cause trouble pooping (constipation). To prevent or treat this, you may need to: Drink enough fluid to keep your pee (urine) pale yellow. Take hopz-mvs-wbqhghy or prescription medicines. Eat foods that are high in fiber. These include beans, whole grains, and fresh fruits and vegetables. Limit foods that are high in fat and sugar. These include fried or sweet foods. General instructions Return to your normal activities when your doctor says that it is safe. Keep all follow-up visits. Contact a doctor if: You feel like you may vomit (nauseous), or you vomit. You feel weak. You get light-headed when getting up from sitting or lying down. You are sweating for no reason. You have trouble pooping. You have worse breathing with physical activity. You have heaviness in your chest. Get help right away if: You faint. If this happens, do not drive yourself to the hospital. You have a fast heartbeat, or a heartbeat that does not feel regular. Summary Iron deficiency anemia happens when you have too little iron in your body. This condition is treated by finding out why you do not have enough iron in your body and then getting more iron. Take lxnw-iib-luvinmr and prescription medicines only as told by your doctor. Eat fresh fruits and vegetables that are high in vitamin C. Contact a doctor if you have trouble pooping or feel weak. This information is not intended to replace advice given to you by your health care provider. Make sure you discuss any questions you have with your health care provider. Document Revised: 09/10/2022 Document Reviewed: 09/10/2022 [place] Patient Education 2022 [employer]. Follow Up Care 01/06/2024 14:57:11 With:Marta GUY, Marianne Carney, MED, ONC Address: When: Unknown Comments:Will check urinalysis with micro to look for microscopic hematuria.FOBT in the next few weeks.Will give her IV iron infusion with Venofer 300 mg x 3 doses. She tried several times oral iron which caused her upset stomach, nausea, indigestion, burping and nausea.Start her on sublingual B12 2500 mcg d aily.Recheck labs in 10 weeks including CBC with differential, CMP, reticulocyte count, LDH, iron studies, B12 and folate. Will defer MPN panel to later as his thrombocytosis might be related to justiron deficiency anemia. Will also check parietal cell antibodies and intrinsic factor antibodies aswell.Referred to GI for screening colonoscopy and also EGD for evaluation for iron deficiency anemia .Return in 11 weeks for results. [facility]05-13-2024 History and physical note* Cece Hoskins - 12/27/2023 3:08 PM EDT [facility] [facility] - HISTORY AND PHYSICAL Chief Complaint: Ventral incisional hernia HPI: Johanna Macdonald is a 68 year old female who presents with a ventral incisional hernia, not painful now while sitting but can reach a 3 or 4 in pain intensity. Sometimes she has a feeling of fullness in her abdomen by the hernia. There does not seem to be a trigger for the pain. Hernia appeared last year; she noticed it when she coughed. She is not sure what may have caused the hernia. Relevant previous operations include: Hysterectomy, cholecystectomy. 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 A previous hernia repair with mesh had an issue with strangulation of the hernia. A wound vac was placed prior to fixing this hernia. MRSA infection occurred at the umbilical hernia. No history of Psychiatric Disorders or Opioid Use Did take 2 Percocet pills back in the 90's after a surgery. Independent No employment Sporadic (once/month) Walks around the house and to go shopping but no exercise otherwise. Hypertension, Diabetes Mellitus, COPD, Dyspnea, Anti-platelet medications, Congestive Heart Failure History of abdominal wall surgical site infection No past medical history on file. No past surgical history on file. Social History Tobacco Use Smoking status: Every Day Types: Cigarettes Smokeless tobacco: Never 1.5-2 packs per day. She quit in the s and then restarted in the early . Does not use alcohol. No family history on file. ALLERGIES Allergen Reactions Atenolol Anaphylaxis, Unknown Throat swelling. Doxycycline Unknown Pseudoephedrine Intolerance Amoxicillin Itching, Other: See Comments Cephalexin Itching, Rash Ciprofloxacin Itching, Rash Clarithromycin Itching, Rash Quinidine Itching Red Dye Unknown Sulfa (Sulfonamide * Itching, Unknown Current Outpatient Medications Medication Sig Dispense Refill metFORMIN (GLUCOPHAGE) 500 mg tablet Take 1 tablet every day by oral route for 90 days. atorvastatin (LIPITOR) 80 mg tablet Take 1 tablet by mouth daily at bedtime. potassium chloride (K-TAB) 10 mEq tablet Take 1 tablet by mouth every 48 hours. isosorbide mononitrate ER (IMDUR) 30 mg 24 hr tablet Take 1 tablet by mouth every morning. aspirin, enteric coated (ASPIRIN, ENTERIC COATED) 81 mg EC tablet in the morning. ipratropium-albuterol (DUONEB) 0.5 mg-3 mg(2.5 mg base)/3 mL nebu INHALE 3 (THREE) mls BY MOUTH viaNEBULIZER FOUR TIMES DAILY esomeprazole (NEXIUM) 40 mg capsule Take 40 mg by mouth two times a day. amLODIPine (NORVASC) 10 mg tablet Take 10 mg by mouth once daily. furosemide (LASIX) 40 mg tablet Take 40 mg by mouth once daily. No current facility-administered medications for this visit. REVIEW OF SYSTEMS GENERAL: Sometimes experiences headaches. HEENT: Blurry vision related to cataract surgery. No hearing, smell, taste issues. RESPIRATORY: Positive for coughing and a couple instances of hemoptysis. CARDIOVASCULAR: Squeezing heart pain sometimes. GI: Positive for occasional nausea and constipation : Positive for polyuria with water pill. Negative for hematuria. ENDOCRINE: Sometimes feels too hot or cold. BP (!) 121/45 Pulse 74 Temp 36.6 C (97.8 F) (Temporal) Ht 149.9 cm (4' 11 ) Wt 69.9 kg (154lb) BMI 31.10 kg/m Physical findings of this patient are as follows (COMPLETE 10 INCLUDING HEART AND LUNG EXAM OR CHOOSE NORMAL EXAM IF APPROPRIATE): Physical Exam Physical Exam Constitutional: The patient is in no distress. Abdominal: Soft. Ventral hernia present and increases in size with cough. Skin: Skin is warm and dry. Relevant Hernia Findings - Increases in size with cough. LABS: No results found for: HBA1C IMAGING - Reviewed with staff CT - Oct 14, 2023 Assessment: Johanna Macdonald is a 68 year old female who presents with ventral hernia. Plan: - hernia repair in trial for robot or open [facility]05-13-2024 History and physical note* Cece Hoskins - 12/27/2023 3:08 PM EDT [facility] Abdominal [facility] - HISTORY AND PHYSICAL Chief Complaint: Ventral incisional hernia HPI: Johanna Macdonald is a 68 year old female who presents with a ventral incisional hernia, not painful now while sitting but can reach a 3 or 4 in pain intensity. Sometimes she has a feeling of fullness in her abdomen by the hernia. There does not seem to be a trigger for the pain. Hernia appeared last year; she noticed it when she coughed. She is not sure what may have caused the hernia. Relevant previous operations include: Hysterectomy, cholecystectomy. 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 A previous hernia repair with mesh had an issue with strangulation of the hernia. A wound vac was placed prior to fixing this hernia. MRSA infection occurred at the umbilical hernia. No history of Psychiatric Disorders or Opioid Use Did take 2 Percocet pills back in the 90's after a surgery. Independent No employment Sporadic (once/month) Walks around the house and to go shopping but no exercise otherwise. Hypertension, Diabetes Mellitus, COPD, Dyspnea, Anti-platelet medications, Congestive Heart Failure History of abdominal wall surgical site infection No past medical history on file. No past surgical history on file. Social History Tobacco Use Smoking status: Every Day Types: Cigarettes Smokeless tobacco: Never 1.5-2 packs per day. She quit in the and then restarted in the early . Does not use alcohol. No family history on file. ALLERGIES Allergen Reactions Atenolol Anaphylaxis, Unknown Throat swelling. Doxycycline Unknown Pseudoephedrine Intolerance Amoxicillin Itching, Other: See Comments Cephalexin Itching, Rash Ciprofloxacin Itching, Rash Clarithromycin Itching, Rash Quinidine Itching Red Dye Unknown Sulfa (Sulfonamide * Itching, Unknown Current Outpatient Medications Medication Sig Dispense Refill metFORMIN (GLUCOPHAGE) 500 mg tablet Take 1 tablet every day by oral route for 90 days. atorvastatin (LIPITOR) 80 mg tablet Take 1 tablet by mouth daily at bedtime. potassium chloride (K-TAB) 10 mEq tablet Take 1 tablet by mouth every 48 hours. isosorbide mononitrate ER (IMDUR) 30 mg 24 hr tablet Take 1 tablet by mouth every morning. aspirin, enteric coated (ASPIRIN, ENTERIC COATED) 81 mg EC tablet in the morning. ipratropium-albuterol (DUONEB) 0.5 mg-3 mg(2.5 mg base)/3 mL nebu INHALE 3 (THREE) mls BY MOUTH viaNEBULIZER FOUR TIMES DAILY esomeprazole (NEXIUM) 40 mg capsule Take 40 mg by mouth two times a day. amLODIPine (NORVASC) 10 mg tablet Take 10 mg by mouth once daily. furosemide (LASIX) 40 mg tablet Take 40 mg by mouth once daily. No current facility-administered medications for this visit. REVIEW OF SYSTEMS GENERAL: Sometimes experiences headaches. HEENT: Blurry vision related to cataract surgery. No hearing, smell, taste issues. RESPIRATORY: Positive for coughing and a couple instances of hemoptysis. CARDIOVASCULAR: Squeezing heart pain sometimes. GI: Positive for occasional nausea and constipation : Positive for polyuria with water pill. Negative for hematuria. ENDOCRINE: Sometimes feels too hot or cold. BP (!) 121/45 Pulse 74 Temp 36.6 C (97.8 F) (Temporal) Ht 149.9 cm (4' 11 ) Wt 69.9 kg (154lb) BMI 31.10 kg/m Physical findings of this patient are as follows (COMPLETE 10 INCLUDING HEART AND LUNG EXAM OR CHOOSE NORMAL EXAM IF APPROPRIATE): Physical Exam Physical Exam Constitutional: The patient is in no distress. Abdominal: Soft. Ventral hernia present and increases in size with cough. Skin: Skin is warm and dry. Relevant Hernia Findings - Increases in size with cough. LABS: No results found for: HBA1C IMAGING - Reviewed with staff CT - Oct 14, 2023 Assessment: Johanna Macdonald is a 68 year old female who presents with ventral hernia. Plan: - hernia repair in trial for robot or open [facility] NoteHNO ID: [id number] Author: JUJU OROURKE MD Service: ? Author Type: Physician Type: Progress Notes Filed: 12/27/2023 16:23 Note Text: Consultation requested by Dr. Karl Montes for an opinion regarding recurrent incisional hernia. My final recommendations will be communicated back to the requesting physician by way of shared medical record or letter via US mail. Johanna Macdonald is a 68 year old female who presents with recurrent incisional hernia. She underwent incisional hernia repair followed by mesh excision for infected mesh in 2007. She then underwent open incisional hernia repair with Permacol mesh. She then got a mesh infection. Her CT shows a 12 cm incisional hernia. I think I can see the PTFE suture that was used to secure the periphery of the Permacol mesh. She has a history of MRSA infection.. Open vs robotic AWR. Need to check HbA1c. I have seen and evaluated the patient and discussed the case with the resident physician. I agree with the assessment and plan as documented in the resident?s note including a ROS that was reviewed and negative other than what was indicated in our notes. Patient consented for study? Yes STUDY TITLE: Robotic versus Open Ventral Hernia Repair (ROVHR) Trial IRB NO.: # [id number] CONTACT LENS FLASHING PUNCHER: Cornell Boles MD FLAKE MILLER WHEAT AND OATS: Petar Bell MD CONTACT: [email or web address] Consenting was performed by the attending surgeon, in a [id number] manner, during preoperative evaluation in General Surgery clinic. Discussed above research protocol with the patient. The risks, benefits, alternatives, and costs were discussed. The study requirements and follow up procedures were reviewed and the importance of follow up compliance was stressed. All patient questions were addressed and answered. Patient has read and understood the study procedures and requirements. Patient has agreed to proceed with trial participation and consent signed. Copy of the signed consent provided to the patient. INCLUSION CRITERIA Yes No 1. The patient is > 18 years of age [x] [] 2. Midline ventral hernia defects ranging from 7 cm to 15 cm in greatest width as measured by pre-operative CT scan [x] [] 3. Body mass index (BMI) less than or equal to 45 [x] [] 4. Patient deemed either a robotic or an open candidate by the operating surgeon [x] [] EXCLUSION CRITERIA Yes No 1. Age 17 or younger [] [x] 2. Prisoners [] [x] 3. patients [] [x] 4. Emergent cases [] [x] 5. BMI greater than 45 [] [x] 6. Hernia defects less than 7 cm or greater than 15 cm in width as measured by pre-operative CT scan [] [x][facility]05-13-2024 History of Present illness Narrative* Juju Orourke MD - 12/27/2023 2:44 PM EDT Consultation requested by Dr. Karl Montes for an opinion regarding recurrent incisional hernia. My final recommendations will be communicated back to the requesting physician by way of shared medical record or letter via US mail. Johanna Macdonald is a 68 year old female who presents with recurrent incisional hernia. She underwentincisional hernia repair followed by mesh excision for infected mesh in 2007. She then underwent open incisional hernia repair with Permacol mesh. She then got a mesh infection. Her CT shows a 12 cm incisional hernia. I think I can see the PTFE suture that was used to secure the periphery of the Permacol mesh. She has a history of MRSA infection.. Open vs robotic AWR. Need to check HbA1c. I have seen and evaluated the patient and discussed the case with the resident physician. I agree with the assessment and plan as documented in the resident s note including a ROS that was reviewed and negative other than what was indicated in our notes. Patient consented for study? Yes STUDY TITLE: Robotic versus Open Ventral Hernia Repair (ROVHR) Trial IRB NO.: # [id number] CONTACT LENS FLASHING PUNCHER: Cornell Boles MD FLAKE MILL[employer] WHEAT [employer] OATS: Petar Bell MD CONTACT: [email or web address] Consenting was performed by the attending surgeon, in a [id number] manner, during preoperative evaluation in General Surgery clinic. Discussed above research protocol with the patient. The risks, benefits, alternatives, and costs were discussed. The study requirements and follow up procedures were reviewed and the importance of follow up compliance was stressed. All patient questions were addressed and answered. Patient has readand understood the study procedures and requirements. Patient has agreed to proceed with trial participation and consent signed. Copy of the signed consent provided to the patient. INCLUSION CRITERIA Yes No 1. The patient is > 18 years of age [x] [] 2. Midline ventral hernia defects ranging from 7 cm to 15 cm in greatest width as measured by pre-operative CT scan [x] [] 3. Body mass index (BMI) less than or equal to 45 [x] [] 4. Patient deemed either a robotic or an open candidate by the operating surgeon [x] [] EXCLUSION CRITERIA Yes No 1. Age 17 or younger [] [x] 2. Prisoners [] [x] 3. patients [] [x] 4. Emergent cases [] [x] 5. BMI greater than 45 [] [x] 6. Hernia defects less than 7 cm or greater than 15 cm in width as measured by pre-operative CT scan [] [x] documented in [facility] Nurse Note* Jayashree Kirkland MA - 12/27/2023 2:34 PM EDT What is the reason for your visit today? Consult Who is your referring physician? Dr. Orourke Are you having poor oral intake? NO Have you had unintentional weight loss of 15 lbs/7 Kg in the last 3-6 months? NO Bowels: regular Wound: clean & dry Temperature: No Drains: No [facility]05-13-2024 Nurse Note* Jayashree Kirkland MA - 12/27/2023 2:34 PM EDT What is the reason for your visit today? Consult Who is your referring physician? Dr. Orourke Are you having poor oral intake? NO Have you had unintentional weight loss of 15 lbs/7 Kg in the last 3-6 months? NO Bowels: regular Wound: clean & dry Temperature: No Drains: No documented in this [facility] Hospital Discharge instructions Follow Up Care 12/24/2023 15:57:48 With:Michelle GUY, Linda Cueva, PUL, TYRA Address: When:[address] [facility]02-21-2024 NoteChief Complaint consultation for right groin pain HPI Staff 68 year old female presents on consultation from Dr. Conway for complaint of right groin pain. Reports several month history of intermittent pain. She is unable to describe pain other than it smarts .Verbalized pain will spontaneously resolve after several seconds. Denies noting bulge to this area.US completed 09/27 with probable right inguinal hernia. History of Present Illness 68 yo female with h/o DMII, COPD, pulmonary htn, GERD, arthritis, referred for right lower quadrant/groin pain, possible inguinal hernia; patient has h/o multiple abd operations, including open cholecystectomy, exploratory laparotomy; MELVIN with bso, ventral hernia repair x 2; has known chronically incarcerated recurrent ventral hernia; patient was seen in ED 2021 with bowel obstruction, sent to [facility]; reports she was there 1 week, but did not have surgery; no N/V or bowel changes, reports vague discomfort in RLQ, no bulge, no skin changes; US of groin with possible small hernia; on baby asa daily, no NSAIDs; chronic cough; smokes 1 1/2 ppd. Review of Systems PHQ Score Initial Depression Screen Score: 0 SCORE ROS - Provider Constitutional: no fever, no sweats, no weight loss. Eyes: no glasses, no blurred vision, no visual loss. ENMT: no dentures, no hoarseness, no swallowing difficulties, no hearing loss, no ear infection(s),no nose bleeds. Cardiovascular: normal blood pressure, no chest pain, regular heartbeat, no heart murmur. Respiratory: no shortness of breath, no cough, no asthma, no wheezing. Gastrointestinal: no nausea, no vomiting, no diarrhea, no constipation, no blood in stool, no change in bowel habits, mild abdominal pain, no hepatitis. Genitourinary: no kidney stones, no urine infection, no dysuria. Musculoskeletal: no pain, no weakness. Skin: no changing moles, no rash, no skin lumps. Neurologic: no seizures, no epilepsy, no headache. Psychiatric: no emotional or psychiatric problem. Heme/Lymph: no bleeding problems, no anemia, no blood clots, no transfusions. Allergy/Immunologic: no swollen lymph nodes/glands, no IV drug abuse. Other: Additional ROS info: Except as noted in the above Review of Systems and in the History of Present Illness, all other systems have been reviewed and are negative or noncontributory. Physical Exam Vitals & Measurements HR: 72(Peripheral) RR: 16 BP: 138/62 HT: 59 in HT: 151 cm WT: 71.5 kg WT: 157.3 lb BMI: 31.36 HEENT: normal conjunctiva, sclera clear, no scleral icterus, EOM intact, PERRLA, oral mucosa moist without lesions. Neck: trachea midline, no mass, symmetric, no thyromegaly or nodules, no adenopathy Respiratory: lungs expiratory wheezes, respirations non labored. Cardiovascular: regular rate and rhythm, no murmur, no pedal edema or varicosities. Gastrointestinal: soft, non distended, no tenderness, no masses, large recurrent midline incisionalherina, chronically incarcerated, no skin changes, nontender; diastasis recti yes, no hepatosplenomegaly; normal bs; large abd pannus, no palpable right inguinal defect or hernia sac palpable, mild inguinal tenderness. Lymphatic: no cervical adenopathy, no supraclavicular adenopathy, no inguinal adenopathy. Musculoskeletal: normal gait, digits and nails without infection, nodes, cyanosis, clubbing. Skin: no rashes, no lesions, no ulcers, no subcutaneous nodules, induration. Psychiatric/Neuro: oriented to time, place, person, judgement normal, affect appropriate for age, insight intact, no focal deficits. Tests: , x-rays reviewed, review of old records completed , Assessment/Plan 1. Incarcerated ventral hernia (K43.6: Other and unspecified ventral hernia with obstruction, without gangrene) large recurrent incisional hernia with incarcerated bowel; recommend evaluation at [facility] hernia center, will obtain abdominal/pelvic ct scan for further evaluation; will call patient with results; signs/symptoms of incarceration/strangulation of hernia explained in detail, and patient understands that she should seek prompt medical evaluation if they were to occur. Ordered: CT Abdomen/Pelvis w/ Contrast [facility] External Ambulatory Referral 2. Abdominal pain, right lower quadrant (R10.31: Right lower quadrant pain) see # 1 Ordered: CT Abdomen/Pelvis w/ Contrast [facility] External Ambulatory Referral 3. Tobacco use (Z72.0: Tobacco use) We strongly recommend to quit tobacco use. Cigarette smoking harms nearly every organ of the body, causes many diseases, and reduces the health of smokers in general. Quitting smoking lowers your risk for smoking-related diseases and can add years to your life. We encourage you to visit www.smokefree.gov access to helpful resources including free telephone support. If you decide on prescription treatment to help you quit, your family doctor would be happy to provide these. Ordered: [facility] External Ambulatory Referral 4. BMI 31.0-31.9,adult (Z68.31: Body mass (more content not included)...[facility] HospitalComment on above:Result Comment: Electronically Signed By: EMORY GUY, Juan Pablo Gomes\Date and Time Signed: 10/06/23 17:05 [id number] Hospital Discharge instructions Follow Up Care 03/02/2023 14:47:00 With:Linda Martinez MD, PUL, TYRA Address: When:[address] [facility]06-12-2023 Hospital Discharge instructions Follow Up Care 01/25/2023 11:19:21 With:Linda Martinez MD, PUL, TYRA Address: [address] [place] [address] [facility] (Heart [facility] V[facility]) [place] [address]- When: Unknown Comments:after his testing is completed [facility]11-21-2022 NoteDISCHARGE SUMMARY [address] [address] Johanna Macdonald Date of : 1955 [address] Ginger Acevedo Date of Admission 07/04/2022 Date of Discharge 07/06/2022 FINAL DIAGNOSES: Hospital Problems as of 07/06/2022 * (Principal) Encounter for assessment for small bowel obstruciton PROCEDURES: None DISCHARGE MEDICATIONS: Current Discharge Medication List START taking these medications Details acetaminophen (TYLENOL) 325 mg tablet Take 2 Tablets by mouth every 6 hours as needed for up to 7 days. Qty: 28 Each, Refills: 0 senna (SENOKOT) 8.6 MG tablet Take 1 Tablet by mouth daily for 7 days. Qty: 7 Tablet, Refills: 0 docusate sodium (Colace) 100 MG capsule Take 1 Capsule by mouth 2 times daily for 7 days. Qty: 14 Capsule, Refills: 0 ibuprofen (MOTRIN) 400 MG tablet Take 1 Tablet by mouth every 6 hours as needed for Pain for up to 7 days. Qty: 28 Tablet, Refills: 0 CONTINUE these medications which have NOT CHANGED Details furosemide (LASIX) 20 MG tablet Take 20 mg by mouth daily. ipratropium-albuterol (DUO-NEB) 0.5-2.5 (3) MG/3ML nebulizer solution Use 3 mL via nebulizer 4 times daily. isosorbide mononitrate (IMDUR) 30 MG CR tablet Take 30 mg by mouth daily. metformin (GLUCOPHAGE) 500 MG tablet Take 500 mg by mouth 3 times daily (with meals). nitroglycerin (NITROSTAT) 0.4 MG sublingual tablet 0.4 mg by Sublingual route every 5 minutes as needed for Chest pain. Maximum of 3 tablets in 15 minutes. Potassium Chloride Shoaib ER (POTASSIUM CHLORIDE SHOAIB CR ORAL) Take 10 mEq by mouth. Once a day every other day predniSONE (DELTASONE) 20 MG tablet Take 40 mg by mouth daily. amLODIPine (NORVASC) 10 MG tablet Take 10 mg by mouth daily. aspirin EC 81 MG tablet Take 81 mg by mouth daily. atorvastatin (LIPITOR) 80 mg tablet Take by mouth daily. cefUROXime (CEFTIN) 500 MG tablet Take 500 mg by mouth 2 times daily. Cholecalciferol 1.25 MG (27054 UT) CAPS Take by mouth. REASON FOR HOSPITALIZATION: 67F PMH Morales's esophagus, GI bleeding, HTN, DM, active >50 pack year smoking, bronchiectasis (no home O2), CT s/p stent x1 (2015, on ASA now), lap sarkis, hysterectomy, hernia repair x2-3, SBO x1 (cannot remember NG vs surgery) who is transferred 07/04 with SBO symptoms beginning 07/03. At OSH, WBC 15.6. Lipase, Hg, LFTs wnl. NG was placed prior to transport. CT A/P concerning for SBO, TP in anterior abdomen, possibly in hernia sac and possible multiple TP. At this time she is non-peritonitic and AFVSS. Will continue non-operative management and optimize patient as necessary for OR. SIGNIFICANT FINDINGS: Diagnoses: Small Bowel Obstruction Ventral Hernia (Present on arrival) - multiple HOSPITAL COURSE: 07/04/2022: Admitted for small bowel obstruction 07/05/2022: Gastrogaffin challenge, no evidence of SBO. NGT removed, CLD. 07/06/2022: Return of bowel function, tolerating PO intake. Discharge home. The patient was seen and examined on the day of discharge with the following findings: General: Resting in bed, no acute distress. Neurologic: GCS 15, alert and oriented x 3. Cardiovascular: Non-tachycardic, no edema. Respiratory: Unlabored breathing on 2L. No use of accessory muscles, symmetic chest expansion. Abdomen: Soft, non-tender, non-distended. Ventral hernia present on admission. Reports occasional epigastric squeezing, reproducible on palpation. Extremities: Moves all extremities, sensorimotor intact. Given the excellent progress, the patient was determined stable for discharge. Condition at Discharge improved Activity no restrictions Diet no restrictions Disposition home Functional Status ambulatory ANTICIPATED FOLLOW UP: No future appointments. Other indicated follow up and instructions for scheduling: No follow-up required with Acute Care Surgery Follow up with PCP for management of chronic conditions Follow up with cardiology as scheduled No discharge procedures on file. Explanation of the primary diagnosis, and secondary diagnoses where applicable, including test results, Review of incidental findings and appropriate recommendations for follow up, and Follow up plans and warning signs that should prompt more urgent follow up OARRS was reviewed today. Additional documentation is necessary because (indicate below): No concerning data. Overdose Risk Score 110. Patient was advised that controlled substances may impair judgement, ability to process information, drive, or operate dangerous machinery. Controlled substances should not be mixed with alcohol or any other controlled medications without express direction from provider. Patient was informed of risks for misuse and potential for addiction, and advised on safe storage and disposal of controlled substances. Almaz Damon APRN-JET MECHANIC Trauma and Acute Care Surgery BETO Fellow Pager (more content not included)...[phone] [phone] Note* Care Plan Note - Kate Perez RN - 07/06/2022 12:45 PM EST Problem: Routine Care: Goal: Patient care will be managed and maintained throughout hospital stay per unit specific routine care procedure Outcome: Completed Problem: Altered Elimination: Goal: Establishment of normal bowel function will be achieved and maintained Outcome: Completed Problem: Fluid and Electrolyte Imbalance: Goal: Adequate fluid and electrolyte balance will be achieved and maintained Outcome: Completed Problem: VTE Prophylaxis: Goal: Will be free of DVT Outcome: Completed Problem: Acute Pain: Goal: Ability to identify pain intensity on a pain scale and rate it consistently will be achieved and maintained Outcome: Completed Goal: Understanding of proper administration and use of medicines will be achieved Outcome: Completed Problem: Risk for Infection: Goal: Risk for infection will be reduced Outcome: Completed Problem: Safety: Goal: Patient will remain free of falls during hospital stay Outcome: Completed Goal: Free from injury during hospitalization Outcome: Completed Problem: Discharge Planning: Goal: Discharge needs of the adult patient will be met Outcome: Completed [id number] History of Present illness Narrative* Kate Perez RN - 07/06/2022 12:45 PM EST 07/06/22 1244 Discharge Note Discharge Time 1235 Discharged to: Home Mode of Transport Wheelchair Patient Follow-up and Care Follow-up scheduled;Follow-up recommended Patient Instructions Verbal & written discharge instructions given & reviewed;Diet & activity;Symptom worsening Verbalized Understanding Patient * Darlin Newton MD - 07/05/2022 7:00 AM EST Images from the original note were not included. [facility] DIVISION OF ACUTE CARE SURGERY GENERAL INFORMATION EMERGENCY GENERAL SURGERY NOTE Patient Name: Johanna Macdonald Admission Date: 07/04/2022 Patient seen and examined on 07/05/2022 INTERVAL HISTORY/EVENTS Background Narrative: 67F PMH Morales's esophagus, GI bleeding, HTN, DM, active >50 pack year smoking, bronchiectasis (no home O2), CT s/p stent x1 (2016, on ASA now), lap sarkis, hysterectomy, hernia repair x2-3, SBO x1 (cannot remember NG vs surgery) who is transferred 07/04 with SBO symptoms beginning 07/03. At OSH, WBC 15.6. Lipase, Hg, LFTs wnl. NG was placed prior to transport. CT A/P concerning for SBO, TP in anterior abdomen, possibly in hernia sac and possible multiple TP. At this time she is non-peritonitic and AFVSS. Will continue non-operative management and optimize patient as necessary for OR. Hospital Course/Procedures: 07/04/2022: Admitted for small bowel obstruction Events in last 24 hours: No nausea/vomiting since initiation of gastric decompression. Will start Gastrogaffin challenge today. No new pain. Denies f/c. PHYSICAL EXAM 24 Hour Input/Output In: 1478.3 (20 mL/kg) [I.V.:1428.3 (0.8 mL/kg/hr)] Out: 725 (9.8 mL/kg) [Urine:375 (0.2 mL/kg/hr); Drainage:350] Net: 753.3 Weight: 73.9 kg Physical Exam: BP 121/60 (BP Location: right arm) Pulse 74 Temp 98.8 F (37.1 C) (Oral) Resp 18 Ht 4' 11 (1.499 m) Wt 163 lb (73.9 kg) SpO2 96% PF 120 L/min Comment: poor effort pain BMI 32.92 kg/m General: No acute distress, awake HEENT: NGT with gastric output Cardiac: Non-tachycardic Pulmonary: Non-labored breathing. Symmetric chest rise. Abdomen: Soft, minimal tenderness, non-distended. No peritonitis Extremities: Moving all extremities spontaneously Skin: Warm, moist Neuro: Alert and oriented x3 LABORATORY RESULTS (LAST 24 HOURS) 8.0 \ 12.1 / 294 / 37.8 \ CBC: 07/05/2022: 1:12 AM 142 107 14 / \ 142 3.5 23 0.52 BMP: 07/05/2022: 1:12 AM IMAGING RESULTS - Last 24 hours (PERSONALLY REVIEWED) No new imaging DIAGNOSIS & PLAN Diagnoses: Small Bowel Obstruction Ventral Hernia (Present on arrival) - multiple Assessment: Johanna Macdonald is a 67F with PMH of HTN, T2DM, CAD (stent x1 2016, ASA81), hysterectomy, hernia repair x2-3, previous SBO, currently admitted for small bowel obstruction in the setting of aventral hernia. Plan Neuro Analgesia: Tylenol, Dilaudid 0.2/0.5 mg q3h PRN mod/severe Resp Encourage IS Respiratory county assessor protocol Cardio Monitor Vitals GI Diet: NPO #Small Bowel Obstruction - Gastrografin Challenge Renal BMP, Mg, Phos q24h Replace electrolytes PRN LR @ 100 cc/hr Endo #Hx of T2DM - Sliding Scale Insulin Prednisone 40 mg daily taken for COPD frequent exacerbations. Replace with Solu- Medrol 40 mg IV daily while NPO Heme/ID CBC q24h No indication for abx MSK Progressive mobility Ppx SCDs, Lovenox Dipso: RNF Plan was discussed with attending, Dr. Aman Berman MD Surgery Acute care surgery [phone] Acute Care Surgery Attending Note: I saw and evaluated the patient. I personally obtained the keller and critical portions of the historyand physical exam. I reviewed the resident's documentation and discussed the patient with the resident. I agree with the resident's medical decision making as documented in the resident's note. I have reviewed all imaging obtained in the last 24 hours. Additional findings, impression, and plan: Minimal output from NG, denies flatus, no worsening of pain. Abdomen soft, nondistended, mildly tender. Gastrograffin challenge performed, contrast within the colon within 4 hours of administration. Will remove NG today, trial clears. Darlin Newton MD documented in this [id number] Miscellaneous Notes* Care Plan Note - Kate Perez RN - 07/06/2022 12:45 PM EST Problem: Routine Care: Goal: Patient care will be managed and maintained throughout hospital stay per unit specific routine care procedure Outcome: Completed Problem: Altered Elimination: Goal: Establishment of normal bowel function will be achieved and maintained Outcome: Completed Problem: Fluid and Electrolyte Imbalance: Goal: Adequate fluid and electrolyte balance will be achieved and maintained Outcome: Completed Problem: VTE Prophylaxis: Goal: Will be free of DVT Outcome: Completed Problem: Acute Pain: Goal: Ability to identify pain intensity on a pain scale and rate it consistently will be achieved and maintained Outcome: Completed Goal: Understanding of proper administration and use of medicines will be achieved Outcome: Completed Problem: Risk for Infection: Goal: Risk for infection will be reduced Outcome: Completed Problem: Safety: Goal: Patient will remain free of falls during hospital stay Outcome: Completed Goal: Free from injury during hospitalization Outcome: Completed Problem: Discharge Planning: Goal: Discharge needs of the adult patient will be met Outcome: Completed * Care Plan Note - Tyra Thurman RN - 07/06/2022 4:32 AM EST Problem: Routine Care: Goal: Patient care will be managed and maintained throughout hospital stay per unit specific routine care procedure Outcome: Progressing Problem: Altered Elimination: Goal: Establishment of normal bowel function will be achieved and maintained Outcome: Progressing Problem: Fluid and Electrolyte Imbalance: Goal: Adequate fluid and electrolyte balance will be achieved and maintained Outcome: Progressing Problem: VTE Prophylaxis: Goal: Will be free of DVT Outcome: Progressing Problem: Acute Pain: Goal: Ability to identify pain intensity on a pain scale and rate it consistently will be achieved and maintained Outcome: Progressing Goal: Understanding of proper administration and use of medicines will be achieved Outcome: Progressing Problem: Risk for Infection: Goal: Risk for infection will be reduced Outcome: Progressing Problem: Safety: Goal: Patient will remain free of falls during hospital stay Outcome: Progressing Goal: Free from injury during hospitalization Outcome: Progressing Problem: Discharge Planning: Goal: Discharge needs of the adult patient will be met Outcome: Progressing * Care Plan Note - Shelli Sesay RN - 07/05/2022 3:49 PM EST Problem: Routine Care: Goal: Patient care will be managed and maintained throughout hospital stay per unit specific routine care procedure Outcome: Progressing Problem: Altered Elimination: Goal: Establishment of normal bowel function will be achieved and maintained Outcome: Progressing Problem: Fluid and Electrolyte Imbalance: Goal: Adequate fluid and electrolyte balance will be achieved and maintained Outcome: Progressing Problem: VTE Prophylaxis: Goal: Will be free of DVT Outcome: Progressing Problem: Acute Pain: Goal: Ability to identify pain intensity on a pain scale and rate it consistently will be achieved and maintained Outcome: Progressing Goal: Understanding of proper administration and use of medicines will be achieved Outcome: Progressing Problem: Risk for Infection: Goal: Risk for infection will be reduced Outcome: Progressing Problem: Safety: Goal: Patient will remain free of falls during hospital stay Outcome: Progressing Goal: Free from injury during hospitalization Outcome: Progressing Problem: Discharge Planning: Goal: Discharge needs of the adult patient will be met Outcome: Progressing * Care Plan Note - Tyra Thurman RN - 07/05/2022 3:22 AM EST Problem: Routine Care: Goal: Patient care will be managed and maintained throughout hospital stay per unit specific routine care procedure Outcome: Progressing Problem: Altered Elimination: Goal: Establishment of normal bowel function will be achieved and maintained Outcome: Progressing Problem: Fluid and Electrolyte Imbalance: Goal: Adequate fluid and electrolyte balance will be achieved and maintained Outcome: Progressing Problem: VTE Prophylaxis: Goal: Will be free of DVT Outcome: Progressing Problem: Acute Pain: Goal: Ability to identify pain intensity on a pain scale and rate it consistently will be achieved and maintained Outcome: Progressing Goal: Understanding of proper administration and use of medicines will be achieved Outcome: Progressing Problem: Risk for Infection: Goal: Risk for infection will be reduced Outcome: Progressing Problem: Safety: Goal: Patient will remain free of falls during hospital stay Outcome: Progressing Goal: Free from injury during hospitalization Outcome: Progressing Problem: Discharge Planning: Goal: Discharge needs of the adult patient will be met Outcome: Progressing * Care Plan Note - Shelli Sesay RN - 07/04/2022 3:47 PM EST Problem: Routine Care: Goal: Patient care will be managed and maintained throughout hospital stay per unit specific routine care procedure Outcome: Progressing Problem: Altered Elimination: Goal: Establishment of normal bowel function will be achieved and maintained Outcome: Progressing Problem: Fluid and Electrolyte Imbalance: Goal: Adequate fluid and electrolyte balance will be achieved and maintained Outcome: Progressing Problem: VTE Prophylaxis: Goal: Will be free of DVT Outcome: Progressing Problem: Acute Pain: Goal: Ability to identify pain intensity on a pain scale and rate it consistently will be achieved and maintained Outcome: Progressing Goal: Understanding of proper administration and use of medicines will be achieved Outcome: Progressing Problem: Risk for Infection: Goal: Risk for infection will be reduced Outcome: Progressing Problem: Safety: Goal: Patient will remain free of falls during hospital stay Outcome: Progressing Goal: Free from injury during hospitalization Outcome: Progressing Problem: Discharge Planning: Goal: Discharge needs of the adult patient will be met Outcome: Progressing documented in this [id number] Hospital Discharge instructions* Discharge Instructions* Almaz Damon APRN-JET MECHANIC - 07/06/2022 8:46 AM EST Discharge Instructions: Date of admission: 07/04/2022 Date of discharge: 07/06/2022 You are being discharged to home. Follow up: - Please call to schedule your follow-up appointments - information provided separately. - You will need to follow up with: - PCP for management of chronic conditions - No follow up required with Acute Care Surgery - See below for information regarding contacting your primary care physician or establishing care at [facility] if you do not already have one. Activity and Weight Bearing: - You do not have any weight bearing limitations/restrictions - You may continue the same diet as you were at home. Pain control: - For MILD to MODERATE pain (pain 1-6 out of 10 on a pain scale) take: -- Tylenol 325 mg, 1-2 tablets every 6 hours as needed. - If you are still having pain 30 min after taking Tylenol, add: -- Motrin 400 mg, 1 tablet every 6 hours as needed. -Wait 30 minutes to 1 hour after taking Tylenol and Motrin, then reassess your pain. - If you are still having pain, and it is SEVERE pain (pain 7-10 out of 10 on pain scale) take: -- Take Oxycodone 5 mg, 1 tablet. You may take 1 tablet every 6 hours for as needed for severe pain. - It is okay to take Tylenol, Motrin, and Oxycodone together if needed. - Please begin to wean off of your pain medications as soon as possible. -- To do this, start taking Oxycodone every 8 hours instead of every 6, then every 12 hours, then only once per day if needed. Then stop. You may use Motrin and Tylenol until your pain is diminished enough for you to tolerate your pain. - Please do not drive within 24 hours of taking Oxycodone or any opiate medication. Update your primary care physician or establish care: Please see your primary care physician at the next available appointment for follow up. Please call either on the day of your discharge, or the day after, to make the appointment. If you are followed by a managed care company or if your insurance requires, call your physician for authorization to be seen in a specialty clinic. If you do not have a primary physician please call [phone] for guidance on finding a [facility] provider. If you have questions or concerns , if your condition worsens or you develop new symptoms please call the [facility] Line at [phone]. * Attachments The following attachments cannot be sent through Care Everywhere. * Small Bowel Obstruction Discharge Instructions (Cymraes) documented in this [id number] Note* Care Plan Note - Tyra Thurman RN - 07/06/2022 4:32 AM EST Problem: Routine Care: Goal: Patient care will be managed and maintained throughout hospital stay per unit specific routine care procedure Outcome: Progressing Problem: Altered Elimination: Goal: Establishment of normal bowel function will be achieved and maintained Outcome: Progressing Problem: Fluid and Electrolyte Imbalance: Goal: Adequate fluid and electrolyte balance will be achieved and maintained Outcome: Progressing Problem: VTE Prophylaxis: Goal: Will be free of DVT Outcome: Progressing Problem: Acute Pain: Goal: Ability to identify pain intensity on a pain scale and rate it consistently will be achieved and maintained Outcome: Progressing Goal: Understanding of proper administration and use of medicines will be achieved Outcome: Progressing Problem: Risk for Infection: Goal: Risk for infection will be reduced Outcome: Progressing Problem: Safety: Goal: Patient will remain free of falls during hospital stay Outcome: Progressing Goal: Free from injury during hospitalization Outcome: Progressing Problem: Discharge Planning: Goal: Discharge needs of the adult patient will be met Outcome: Progressing [id number] Note* Care Plan Note - Shelli Sesay RN - 07/05/2022 3:49 PM EST Problem: Routine Care: Goal: Patient care will be managed and maintained throughout hospital stay per unit specific routine care procedure Outcome: Progressing Problem: Altered Elimination: Goal: Establishment of normal bowel function will be achieved and maintained Outcome: Progressing Problem: Fluid and Electrolyte Imbalance: Goal: Adequate fluid and electrolyte balance will be achieved and maintained Outcome: Progressing Problem: VTE Prophylaxis: Goal: Will be free of DVT Outcome: Progressing Problem: Acute Pain: Goal: Ability to identify pain intensity on a pain scale and rate it consistently will be achieved and maintained Outcome: Progressing Goal: Understanding of proper administration and use of medicines will be achieved Outcome: Progressing Problem: Risk for Infection: Goal: Risk for infection will be reduced Outcome: Progressing Problem: Safety: Goal: Patient will remain free of falls during hospital stay Outcome: Progressing Goal: Free from injury during hospitalization Outcome: Progressing Problem: Discharge Planning: Goal: Discharge needs of the adult patient will be met Outcome: Progressing [place] [id number] Note* Care Plan Note - Tyra Thurman RN - 07/05/2022 3:22 AM EST Problem: Routine Care: Goal: Patient care will be managed and maintained throughout hospital stay per unit specific routine care procedure Outcome: Progressing Problem: Altered Elimination: Goal: Establishment of normal bowel function will be achieved and maintained Outcome: Progressing Problem: Fluid and Electrolyte Imbalance: Goal: Adequate fluid and electrolyte balance will be achieved and maintained Outcome: Progressing Problem: VTE Prophylaxis: Goal: Will be free of DVT Outcome: Progressing Problem: Acute Pain: Goal: Ability to identify pain intensity on a pain scale and rate it consistently will be achieved and maintained Outcome: Progressing Goal: Understanding of proper administration and use of medicines will be achieved Outcome: Progressing Problem: Risk for Infection: Goal: Risk for infection will be reduced Outcome: Progressing Problem: Safety: Goal: Patient will remain free of falls during hospital stay Outcome: Progressing Goal: Free from injury during hospitalization Outcome: Progressing Problem: Discharge Planning: Goal: Discharge needs of the adult patient will be met Outcome: Progressing [place] [id number] Note* Care Plan Note - Shelli Sesay RN - 07/04/2022 3:47 PM EST Problem: Routine Care: Goal: Patient care will be managed and maintained throughout hospital stay per unit specific routine care procedure Outcome: Progressing Problem: Altered Elimination: Goal: Establishment of normal bowel function will be achieved and maintained Outcome: Progressing Problem: Fluid and Electrolyte Imbalance: Goal: Adequate fluid and electrolyte balance will be achieved and maintained Outcome: Progressing Problem: VTE Prophylaxis: Goal: Will be free of DVT Outcome: Progressing Problem: Acute Pain: Goal: Ability to identify pain intensity on a pain scale and rate it consistently will be achieved and maintained Outcome: Progressing Goal: Understanding of proper administration and use of medicines will be achieved Outcome: Progressing Problem: Risk for Infection: Goal: Risk for infection will be reduced Outcome: Progressing Problem: Safety: Goal: Patient will remain free of falls during hospital stay Outcome: Progressing Goal: Free from injury during hospitalization Outcome: Progressing Problem: Discharge Planning: Goal: Discharge needs of the adult patient will be met Outcome: Progressing [id number] Emergency department Note* Amy Matthew - 07/04/2022 6:50 AM EST /LENO BAKER notified of critical POTASSIUM ( HEMOLYZED) value of 6.5 . PAGED results given /PHONEDto /LENO Matthew [id number] Emergency department Note* Amy Matthew - 07/04/2022 6:50 AM EST /LENO BAKER notified of critical POTASSIUM ( HEMOLYZED) value of 6.5 . PAGED results given /PHONEDto Dr./LIP SAMUEL Matthew documented in this [id number] Consult note* Fernando Baker MD - 07/04/2022 5:46 AM ESTAssociated Order(s): IP ACUTE CARE SURGERY CONSULT [facility] DIVISION OF ACUTE CARE SURGERY EMERGENCY GENERAL SURGERY CONSULTATION, HISTORY & PHYSICAL Reason for consultation: Small bowel obstruction Referring physician: ISAEL Felix HPI: 67F PMH Morales's esophagus, GI bleeding, HTN, DM, active >50 pack year smoking, bronchiectasis (no home O2), CT s/p stent x1 (2016, on ASA now), lap sarkis, hysterectomy, hernia repair x2-3, SBO x1 (cannot remember NG vs surgery) who is transferred 07/04 with SBO. Abdominal pain began 07/03 AM, developed nausea without emesis, last BM/flatus 07/03 as well. Denies fevers, possible chills. She endorses recent admission for COPD exacerbation and was discharged on prednisone taper (10mg for 4 more days) and antibiotics (completed). Denies liver or kidney history. Denies known stroke or CT other than 2018. Requires q4 hour duoneb breathing treatment, no home oxygen. 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 Colonoscopy completed ~4weeks ago, but cannot remember any details. Duration 1 day Location abdomen Context worsening PQRST non-radiating, worse in upper abdomen Assoc signs & symptoms nausea, no emesis Modifying factors improves with bowel rest PMH: HTN, DM, active >50 pack year smoking, bronchiectasis (no home O2), CT s/p stent x1 (2016, on ASA now) PSH: lap sarkis, hysterectomy, hernia repair x2-3, SBO x1 MEDS: Prior to Admission Medications Prescriptions Last Dose Informant Patient Reported? Taking? Cholecalciferol 1.25 MG (93819 UT) CAPS Yes Yes Sig: Take by mouth. Potassium Chloride Shoaib ER (POTASSIUM CHLORIDE SHOAIB CR ORAL) Yes Yes Sig: Take 10 mEq by mouth. Once a day every other day amLODIPine (NORVASC) 10 MG tablet Yes Yes Sig: Take 10 mg by mouth daily. aspirin EC 81 MG tablet Yes Yes Sig: Take 81 mg by mouth daily. atorvastatin (LIPITOR) 80 mg tablet Yes Yes Sig: Take by mouth daily. cefUROXime (CEFTIN) 500 MG tablet Yes Yes Sig: Take 500 mg by mouth 2 times daily. furosemide (LASIX) 20 MG tablet Yes Yes Sig: Take 20 mg by mouth daily. ipratropium-albuterol (DUO-NEB) 0.5-2.5 (3) MG/3ML nebulizer solution Yes Yes Sig: Use 3 mL via nebulizer 4 times daily. isosorbide mononitrate (IMDUR) 30 MG CR tablet Yes Yes Sig: Take 30 mg by mouth daily. metformin (GLUCOPHAGE) 500 MG tablet Yes Yes Sig: Take 500 mg by mouth 3 times daily (with meals). nitroglycerin (NITROSTAT) 0.4 MG sublingual tablet Yes Yes Si.4 mg by Sublingual route every 5 minutes as needed for Chest pain. Maximum of 3 tablets in 15 minutes. predniSONE (DELTASONE) 20 MG tablet Yes Yes Sig: Take 40 mg by mouth daily. Facility-Administered Medications: None ALL: Allergies Allergen Reactions Amoxicillin Atenolol Anaphylactic Shock Biaxin [Clarithromycin] Ciprofloxacin Doxycycline Hydrocodone-Acetaminophen [Acetaminophen-Hydrocodone] Keflex [Cephalexin] Pseudoephedrine Sulfa Antibiotics FH: No family history on file. SH: >50 pack year smoking, no alcohol, no other drug use Review Of Systems: 10 point review of systems negative except for pertinent positives mentioned in HPI PHYSICAL EXAM: VITALS: Vitals: 07/04/22 0400 BP: 129/51 Pulse: 74 Resp: 18 Temp: 98 F (36.7 C) SpO2: 94% General: No acute distress, alert and oriented Neuro: Moves extremities without gross deficit Cardiac: RRR Respiratory: Non-labored breathing on room air Abdomen: soft, no overlying skin changes, tender to palpation in upper abdomen, non-peritonitic Extremities: no peripheral edema LABS: CBC/PT/INR WBC RBC Hgb Hct MCV RDW Plt PT aPTT INR 07/04/22 0351 25 07/04/22 0351 0.97 Basic Metabolic Panel None Arterial Blood Gases None IMAGING (personally reviewed by me): OSH CT A/P 07/04 Impression: Evidence of SBO. No small bowle wall thickening or pneumatosis. Normal small bowel wall contrast enhancmenet. No mesenteric edema. Probably transitio npoint in anterior right abdomen Postoperative changes in anterior abdominal wall status post hernia repair with evidence of hernia recurrence. S/p hysterectomy and cholecystectomy ASSESSMENT/RECOMMENDATIONS: 67F PMH Morales's esophagus, GI bleeding, HTN, DM, active >50 pack year smoking, bronchiectasis (no home O2), CT s/p stent x1 (2016, on ASA now), lap sarkis, hysterectomy, hernia repair x2-3, SBO x1 (cannot remember NG vs surgery) who is transferred 07/04 with SBO symptoms beginning 07/03. At OSH, WBC 15.6. Lipase, Hg, LFTs wnl. NG was placed prior to transport. CT A/P concerning for SBO, TP in anterior abdomen, possibly in hernia sac and possible multiple TP. At this time she is non-peritonitic and AFVSS. Will continue non-operative management and optimize patient as necessary for OR. PLAN: Neurological: - Tylenol 650 q6 liquid - IV narcotics as needed, fentanyl 25mcg q2 Cardiovascular: - Baseline EKG given cardiac history - Restart home lipitor 80, ASA 81 - Hold home amlodipine, imdur, lasix 20mg every other day restart as necessary - Consider cardiology consultation for possible pre-op Respiratory: - Respiratory county assessor protocol - Restart home duoneb q4 hours - 4 days of 10mg prednisone left - if to restart, need 40mg IV hydrocortisone daily - 10mg q6 GI/Diet: - NPO - NG to LIWS - Continue home nexium Renal/Electrolytes: - BMP, Mg, Phos daily - D5-LR 100cc/hour Heme: - Type & Screen (07/04/22) - CBC daily ID: - No abx indicated at this time Endocrine: - q6 SSI - hold metformin Tubes/Lines/Drains: - PIV, NG Prophylaxis: - 40mg daily lovenox Final ED disposition: RNF Patient discussed with Attending Trauma Surgeon, Dr. Martinez. Fernando Baker MD Associated attestation - Jacqueline Martinez MD - 07/04/2022 9:01 PM EST Teaching Physician Note: I saw and evaluated the patient. I personally obtained the keller and critical portions of the historyand physical exam. I reviewed the resident's documentation and discussed the patient with the resident. I agree with the resident's medical decision making as documented in the resident's note. This is a 67 year old female patient who presents as a transfer after a small bowel obstruction. She has had several surgeries including a hernia repairs. Has also had SBO in the past and cannot remember if this was managed operatively or non operatively She has not had any abdominal surg in the last 10 years Abdomen is distended. She is not peritonitic and has non specific tenderness mainly in the upper abdomen without any rebound NGT has just gone in, green bilious output On review of CT scan she has dilated and decompressed bowel loops Zafar for non operative management with NGT however I have spoken with the patient about the possibility that this may not resolve non operatively and if she requires surgery, it will be extensive and may involve mesh explantation. She expresses understanding Jacqueline Martinez MD [facility] Work Phone: [phone] 489-760611-19-2022 Consult note* Fernando Baker MD - 07/04/2022 5:46 AM ESTAssociated Order(s): IP ACUTE CARE SURGERY CONSULT [facility] DIVISION OF ACUTE CARE SURGERY EMERGENCY GENERAL SURGERY CONSULTATION, HISTORY & PHYSICAL Reason for consultation: Small bowel obstruction Referring physician: ISAEL Felix HPI: 67F PMH Morales's esophagus, GI bleeding, HTN, DM, active >50 pack year smoking, bronchiectasis (no home O2), CT s/p stent x1 (2015, on ASA now), lap sarkis, hysterectomy, hernia repair x2-3, SBO x1 (cannot remember NG vs surgery) who is transferred 07/04 with SBO. Abdominal pain began 07/03 AM, developed nausea without emesis, last BM/flatus 07/03 as well. Denies fevers, possible chills. She endorses recent admission for COPD exacerbation and was discharged on prednisone taper (10mg for 4 more days) and antibiotics (completed). Denies liver or kidney history. Denies known stroke or CT other than 2018. Requires q4 hour duoneb breathing treatment, no home oxygen. 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 Colonoscopy completed ~4weeks ago, but cannot remember any details. Duration 1 [address] Location abdomen Context worsening PQRST non-radiating, worse in upper abdomen Assoc signs & symptoms nausea, no emesis Modifying factors improves with bowel rest PMH: HTN, DM, active >50 pack year smoking, bronchiectasis (no home O2), CT s/p stent x1 (2015, on ASA now) PSH: lap sarkis, hysterectomy, hernia repair x2-3, SBO x1 MEDS: Prior to Admission Medications Prescriptions Last Dose Informant Patient Reported? Taking? Cholecalciferol 1.25 MG (86356 UT) CAPS Yes Yes Sig: Take by mouth. Potassium Chloride Shoaib ER (POTASSIUM CHLORIDE SHOAIB CR ORAL) Yes Yes Sig: Take 10 mEq by mouth. Once a day every other day amLODIPine (NORVASC) 10 MG tablet Yes Yes Sig: Take 10 mg by mouth daily. aspirin EC 81 MG tablet Yes Yes Sig: Take 81 mg by mouth daily. atorvastatin (LIPITOR) 80 mg tablet Yes Yes Sig: Take by mouth daily. cefUROXime (CEFTIN) 500 MG tablet Yes Yes Sig: Take 500 mg by mouth 2 times daily. furosemide (LASIX) 20 MG tablet Yes Yes Sig: Take 20 mg by mouth daily. ipratropium-albuterol (DUO-NEB) 0.5-2.5 (3) MG/3ML nebulizer solution Yes Yes Sig: Use 3 mL via nebulizer 4 times daily. isosorbide mononitrate (IMDUR) 30 MG CR tablet Yes Yes Sig: Take 30 mg by mouth daily. metformin (GLUCOPHAGE) 500 MG tablet Yes Yes Sig: Take 500 mg by mouth 3 times daily (with meals). nitroglycerin (NITROSTAT) 0.4 MG sublingual tablet Yes Yes Si.4 mg by Sublingual route every 5 minutes as needed for Chest pain. Maximum of 3 tablets in 15 minutes. predniSONE (DELTASONE) 20 MG tablet Yes Yes Sig: Take 40 mg by mouth daily. Facility-Administered Medications: None ALL: Allergies Allergen Reactions Amoxicillin Atenolol Anaphylactic Shock Biaxin [Clarithromycin] Ciprofloxacin Doxycycline Hydrocodone-Acetaminophen [Acetaminophen-Hydrocodone] Keflex [Cephalexin] Pseudoephedrine Sulfa Antibiotics FH: No family history on file. SH: >50 pack year smoking, no alcohol, no other drug use Review Of Systems: 10 point review of systems negative except for pertinent positives mentioned in HPI PHYSICAL EXAM: VITALS: Vitals: 07/04/22 0400 BP: 129/51 Pulse: 74 Resp: 18 Temp: 98 F (36.7 C) SpO2: 94% General: No acute distress, alert and oriented Neuro: Moves extremities without gross deficit Cardiac: RRR Respiratory: Non-labored breathing on room air Abdomen: soft, no overlying skin changes, tender to palpation in upper abdomen, non-peritonitic Extremities: no peripheral edema LABS: CBC/PT/INR WBC RBC Hgb Hct MCV RDW Plt PT aPTT INR 07/04/22 0351 25 07/04/22 0351 0.97 Basic Metabolic Panel None Arterial Blood Gases None IMAGING (personally reviewed by me): OSH CT A/P 07/04 Impression: Evidence of SBO. No small bowle wall thickening or pneumatosis. Normal small bowel wall contrast enhancmenet. No mesenteric edema. Probably transitio npoint in anterior right abdomen Postoperative changes in anterior abdominal wall status post hernia repair with evidence of hernia recurrence. S/p hysterectomy and cholecystectomy ASSESSMENT/RECOMMENDATIONS: 67F PMH Morales's esophagus, GI bleeding, HTN, DM, active >50 pack year smoking, bronchiectasis (no home O2), CT s/p stent x1 (2016, on ASA now), lap sarkis, hysterectomy, hernia repair x2-3, SBO x1 (cannot remember NG vs surgery) who is transferred 07/04 with SBO symptoms beginning 07/03. At OSH, WBC 15.6. Lipase, Hg, LFTs wnl. NG was placed prior to transport. CT A/P concerning for SBO, TP in anterior abdomen, possibly in hernia sac and possible multiple TP. At this time she is non-peritonitic and AFVSS. Will continue non-operative management and optimize patient as necessary for OR. PLAN: Neurological: - Tylenol 650 q6 liquid - IV narcotics as needed, fentanyl 25mcg q2 Cardiovascular: - Baseline EKG given cardiac history - Restart home lipitor 80, ASA 81 - Hold home amlodipine, imdur, lasix 20mg every other day restart as necessary - Consider cardiology consultation for possible pre-op Respiratory: - Respiratory county assessor protocol - Restart home duoneb q4 hours - 4 days of 10mg prednisone left - if to restart, need 40mg IV hydrocortisone daily - 10mg q6 GI/Diet: - NPO - NG to LIWS - Continue home nexium Renal/Electrolytes: - BMP, Mg, Phos daily - D5-LR 100cc/hour Heme: - Type & Screen (07/04/22) - CBC daily ID: - No abx indicated at this time Endocrine: - q6 SSI - hold metformin Tubes/Lines/Drains: - PIV, NG Prophylaxis: - 40mg daily lovenox Final ED disposition: RNF Patient discussed with Attending Trauma Surgeon, Dr. Martinez. Fernando Baker MD Associated attestation - Jacqueline Martinez MD - 07/04/2022 9:01 PM EST Teaching Physician Note: I saw and evaluated the patient. I personally obtained the keller and critical portions of the historyand physical exam. I reviewed the resident's documentation and discussed the patient with the resident. I agree with the resident's medical decision making as documented in the resident's note. This is a 67 year old female patient who presents as a transfer after a small bowel obstruction. She has had several surgeries including a hernia repairs. Has also had SBO in the past and cannot remember if this was managed operatively or non operatively She has not had any abdominal surg in the last 10 years Abdomen is distended. She is not peritonitic and has non specific tenderness mainly in the upper abdomen without any rebound NGT has just gone in, green bilious output On review of CT scan she has dilated and decompressed bowel loops Zafar for non operative management with NGT however I have spoken with the patient about the possibility that this may not resolve non operatively and if she requires surgery, it will be extensive and may involve mesh explantation. She expresses understanding Jacqueline Martinez MD documented in this [id number] [facility] Future Appointments Appointment Date:02/11/2023 01:00:00 PM Scheduled Provider: Location:[facility] Appointment Type: Medicare Wellness Subsequent Appointment Date:04/20/2023 02:20:00 PM Scheduled Provider:Issac Conway MD Location:[facility] Appointment Type: Open Future Scheduled Tests Radiology* CT Chest w/o Contrast 02[facility]08[facility] [facility] Future Appointments Appointment Date:03/29/2023 02:00:00 PM Scheduled Provider:Issac Conway MD Location:[facility] Appointment Type: Open Appointment Date:04/05/2023 01:15:00 PM Scheduled Provider:Linda Martinez MD Location:.[facility] Appointment Type:Pulmonary Follow Up (FT) Appointment Date:04/20/2023 02:20:00 PM Scheduled Provider:Issac Conway MD Location:[facility] Appointment Type: Open Appointment Date:02/10/2024 02:00:00 PM Scheduled Provider: Location:[facility] Appointment Type: Medicare Wellness Subsequent [facility] Future Appointments Appointment Date:04/15/2023 02:00:00 PM Scheduled Provider:Petar Gonzalez MD Location[facility] [place] Appointment Type:Cardiology New Patient (FT) Appointment Date:04/20/2023 02:20:00 PM Scheduled Provider:Issac Conway MD Location:[facility] Appointment Type: Open Appointment Date:02/10/2024 02:00:00 PM Scheduled Provider: Location:[facility] Appointment Type: Medicare Wellness Subsequent Future Scheduled Tests Radiology* CT Chest, Low Dose Screening 03/05/[address] [facility] Future Appointments Appointment Date:04/20/2023 02:20:00 PM Scheduled Provider:Issac Conway MD Location:[facility] Appointment Type: Open Appointment Date:05/20/2023 03:00:00 PM Scheduled Provider:Petar Gonzalez [facility] [place] [facility] Type:Cardiology Follow Up (FT) Appointment Date:02/10/2024 02:00:00 PM Scheduled Provider: Location:[facility] Appointment Type: Medicare Wellness Subsequent Future Scheduled Tests Radiology* CT Chest, Low Dose Screening 03/05/[address] [facility] Future Appointments Appointment Date:10/11/2023 10:00:00 AM Scheduled Provider:Linda Martinez MD [facility] Type:Pulmonary Follow Up (FT) Appointment Date:02/10/2024 02:00:00 PM Scheduled Provider: Location:[facility] Appointment Type: Medicare Wellness Subsequent Future Scheduled Tests Laboratory* Basic Metabolic Panel 05/20/23 Radiology* US Extremity Non-Vascular Limited Right 09/23/23 * CT Chest, Low Dose Screening 03/05/[address] [facility] Future Appointments Appointment Date:10/11/2023 10:00:00 AM Scheduled Provider:Linda Martinez MD [facility] Type:Pulmonary Follow Up (FT) Appointment Date:02/10/2024 02:00:00 PM Scheduled Provider: Location:[facility] Appointment Type: Medicare Wellness Subsequent Future Scheduled Tests Laboratory* Basic Metabolic Panel 05/20/23 Radiology* CT Chest, Low Dose Screening 03/05/[address] [facility] Future Appointments Appointment Date:10/11/2023 10:00:00 AM Scheduled Provider:Linda Martinez MD [facility] Type:Pulmonary Follow Up (FT) Appointment Date:10/20/2023 02:15:00 PM Scheduled Provider:Issac Conway MD Location:[facility] Appointment Type: Open Appointment Date:02/10/2024 02:00:00 PM Scheduled Provider: Location:[facility] Appointment Type: Medicare Wellness Subsequent Future Scheduled Tests Laboratory* Basic Metabolic Panel 05/20/23 Radiology* CT Chest, Low Dose Screening 03/05/24 [facility] [place] Evaluation + Plan note Future Appointments Appointment Date:11/30/2023 11:15:00 AM Scheduled Provider:Issac Conway MD Location:[facility] Appointment Type: Open Appointment Date:02/10/2024 02:00:00 PM Scheduled Provider: Location:[facility] Appointment Type: Medicare Wellness Subsequent Future Scheduled Tests Laboratory* Basic Metabolic Panel 05/20/23 Radiology* CT Chest, Low Dose Screening 03/05/[address] [facility] Future Appointments Appointment Date:02/15/2024 02:30:00 PM Scheduled Provider: Location:[facility] Appointment Type: Medicare Wellness Subsequent Appointment Date:02/15/2024 03:30:00 PM Scheduled Provider:Issac Conway MD Location:[facility] Appointment Type: Open Appointment Date:02/16/2024 11:45:00 AM Scheduled Provider:Linda Martinez MD [facility] Type:Pulmonary Follow Up (FT) Diagnostic Tests Pending * HgbA1c 12/28/23 * Path. Review 12/28/23 Future Scheduled Tests Laboratory* Basic Metabolic Panel 05/20/23 Radiology* CT Chest, Low Dose Screening 03/05/[address] [facility] Future Appointments Appointment Date:02/15/2024 02:30:00 PM Scheduled Provider: Location:[facility] Appointment Type: Medicare Wellness Subsequent Appointment Date:02/15/2024 03:30:00 PM Scheduled Provider:Issac Conway MD Location:[facility] Appointment Type: Open Appointment Date:02/16/2024 11:45:00 AM Scheduled Provider:Linda Martinez MD Location:.[facility] Appointment Type:Pulmonary Follow Up (FT) Appointment Date:03/28/2024 02:30:00 PM Scheduled Provider:Marianne Lozano MD Location:.ONCOLOGY Appointment Type:ONC Office Visit 30 (FT) Future Scheduled Tests Laboratory* Lab Miscellaneous-LC 03/20/24 * Intrinsic Factor Antibody 03/20/24 * Stool Occult Blood 01/26/24 * Basic Metabolic Panel 05/20/23 * CBC w/ Auto Diff 03/20/24 * Comprehensive Metabolic Panel 03/20/24 * Ferritin 03/20/24 * Folate Level 03/20/24 * Iron Level 03/20/24 * Iron Percent Saturation 03/20/24 * Lactate Dehydrogenase 03/20/24 * Reticulocyte Count 03/20/24 * Transferrin 03/20/24 * Vitamin B12 Level 03/20/24 Radiology* CT Chest, Low Dose Screening 03/05/[address] [facility] Future Appointments Appointment Date:02/15/2024 02:30:00 PM Scheduled Provider: Location:[facility] Appointment Type: Medicare Wellness Subsequent Appointment Date:02/15/2024 03:30:00 PM Scheduled Provider:Issac Conway MD Location:[facility] Appointment Type: Open Appointment Date:02/16/2024 11:45:00 AM Scheduled Provider:Linda Martinez MD Location[facility] Appointment Type:Pulmonary Follow Up (FT) Appointment Date:03/28/2024 02:30:00 PM Scheduled Provider:Marianne Lozano MD Location:.ONCOLOGY Appointment Type:ONC Office Visit 30 (FT) Future Scheduled Tests Laboratory* Lab Miscellaneous-LC 03/20/24 * Intrinsic Factor Antibody 03/20/24 * Basic Metabolic Panel 05/20/23 * CBC w/ Auto Diff 03/20/24 * Comprehensive Metabolic Panel 03/20/24 * Ferritin 03/20/24 * Folate Level 03/20/24 * Iron Level 03/20/24 * Iron Percent Saturation 03/20/24 * Lactate Dehydrogenase 03/20/24 * Reticulocyte Count 03/20/24 * Transferrin 03/20/24 * Vitamin B12 Level 03/20/24 Radiology* CT Chest, Low Dose Screening 03/05/[address] [facility] Future Appointments Appointment Date:02/15/2024 02:30:00 PM Scheduled Provider: Location:[facility] Appointment Type: Medicare Wellness Subsequent Appointment Date:02/15/2024 03:30:00 PM Scheduled Provider:Issac Conway MD Location:[facility] Appointment Type:FM Open Appointment Date:02/16/2024 11:45:00 AM Scheduled Provider:Linda Martinez MD [facility] Type:Pulmonary Follow Up (FT) Appointment Date:02/21/2024 11:00:00 AM Scheduled Provider: Location:.ONCOLOGY Appointment Type:ONC Venofer (FT) Appointment Date:02/28/2024 01:00:00 PM Scheduled Provider: [facility] Type:ONC Venofer (FT) Appointment Date:03/28/2024 02:40:00 PM Scheduled Provider:Marta GUY, Marianne Carney Location:.ONCOLOGY Appointment Type:ONC Office Visit 30 (FT) Future Scheduled Tests Laboratory* Lab Miscellaneous-LC 03/20/24 * Intrinsic Factor Antibody 03/20/24 * Basic Metabolic Panel 05/20/23 * CBC w/ Auto Diff 03/20/24 * Comprehensive Metabolic Panel 03/20/24 * Ferritin 03/20/24 * Folate Level 03/20/24 * Iron Level 03/20/24 * Iron Percent Saturation 03/20/24 * Lactate Dehydrogenase 03/20/24 * Reticulocyte Count 03/20/24 * Transferrin 03/20/24 * Vitamin B12 Level 03/20/24 Radiology* CT Chest, Low Dose Screening 03/05/[address] [facility] Future Appointments Appointment Date:02/21/2024 11:00:00 AM Scheduled Provider: Location:.ONCOLOGY Appointment Type:ONC Venofer (FT) Appointment Date:02/28/2024 01:00:00 PM Scheduled Provider: [facility] Type:ONC Venofer (FT) Appointment Date:03/28/2024 02:40:00 PM Scheduled Provider:Marianne Lozano MD Location:.ONCOLOGY Appointment Type:ONC Office Visit 30 (FT) Appointment Date:02/19/2025 02:30:00 PM Scheduled Provider: Location:[facility] Appointment Type:FM Medicare Wellness Subsequent Future Scheduled Tests Laboratory* Lab Miscellaneous-LC 03/20/24 * Intrinsic Factor Antibody 03/20/24 * HCV Antibody RFX to Quant PCR 02/15/24 * Basic Metabolic Panel 05/20/23 * CBC w/ Auto Diff 03/20/24 * Comprehensive Metabolic Panel 03/20/24 * Ferritin 03/20/24 * Folate Level 03/20/24 * Iron Level 03/20/24 * Iron Percent Saturation 03/20/24 * Lactate Dehydrogenase 03/20/24 * Reticulocyte Count 03/20/24 * Transferrin 03/20/24 * Vitamin B12 Level 03/20/24 Radiology* CT Chest, Low Dose Screening 02/15/24 * CT Chest, Low Dose Screening 03/05/24 * MA Mamm Screen w/CAD if perf and 3D Dallin 02/15/[address] [facility] Future Appointments Appointment Date:02/28/2024 01:00:00 PM Scheduled Provider: [facility] Type:ONC Venofer (FT) Appointment Date:03/28/2024 02:40:00 PM Scheduled Provider:Marianne Lozano MD [facility] Type:ONC Office Visit 30 (FT) Appointment Date:02/19/2025 02:30:00 PM Scheduled Provider: Location:[facility] Appointment Type:FM Medicare Wellness Subsequent Future Scheduled Tests Laboratory* Lab Miscellaneous-LC 03/20/24 * Intrinsic Factor Antibody 03/20/24 * HCV Antibody RFX to Quant PCR 02/15/24 * Basic Metabolic Panel 05/20/23 * CBC w/ Auto Diff 03/20/24 * Comprehensive Metabolic Panel 03/20/24 * Ferritin 03/20/24 * Folate Level 03/20/24 * Iron Level 03/20/24 * Iron Percent Saturation 03/20/24 * Lactate Dehydrogenase 03/20/24 * Reticulocyte Count 03/20/24 * Transferrin 03/20/24 * Vitamin B12 Level 03/20/24 Radiology* CT Chest, Low Dose Screening 02/15/24 * CT Chest, Low Dose Screening 03/05/24 * MA Mamm Screen w/CAD if perf and 3D Dallin 02/15/[address] [facility] Future Appointments Appointment Date:03/28/2024 02:40:00 PM Scheduled Provider:Marta GUY, Marianne Carney [facility] Type:ONC Office Visit 30 (FT) Appointment Date:02/19/2025 02:30:00 PM Scheduled Provider: Location:[facility] Appointment Type:FM Medicare Wellness Subsequent Future Scheduled Tests Laboratory* Lab Miscellaneous-LC 03/20/24 * Intrinsic Factor Antibody 03/20/24 * HCV Antibody RFX to Quant PCR 02/15/24 * Basic Metabolic Panel 05/20/23 * CBC w/ Auto Diff 03/20/24 * Comprehensive Metabolic Panel 03/20/24 * Ferritin 03/20/24 * Folate Level 03/20/24 * Iron Level 03/20/24 * Iron Percent Saturation 03/20/24 * Lactate Dehydrogenase 03/20/24 * Reticulocyte Count 03/20/24 * Transferrin 03/20/24 * Vitamin B12 Level 03/20/24 Radiology* CT Chest, Low Dose Screening 02/15/24 * CT Chest, Low Dose Screening 03/05/24 * MA Mamm Screen w/CAD if perf and 3D Dallin 02/15/[address] [facility] Future Appointments Appointment Date:03/28/2024 02:40:00 PM Scheduled Provider:Marta GUY, Marianne Carney [facility] Type:ONC Office Visit 30 () Appointment Date:02/19/2025 02:30:00 PM Scheduled Provider: Location:[facility] Appointment Type:FM Medicare Wellness Subsequent Future Scheduled Tests Laboratory* Lab Miscellaneous-LC 03/20/24 * Intrinsic Factor Antibody 03/20/24 * HCV Antibody RFX to Quant PCR 02/15/24 * Basic Metabolic Panel 05/20/23 * CBC w/ Auto Diff 03/20/24 * Comprehensive Metabolic Panel 03/20/24 * Ferritin 03/20/24 * Folate Level 03/20/24 * Iron Level 03/20/24 * Iron Percent Saturation 03/20/24 * Lactate Dehydrogenase 03/20/24 * Reticulocyte Count 03/20/24 * Transferrin 03/20/24 * Vitamin B12 Level 03/20/24 Radiology* MA Mamm Screen w/CAD if perf and 3D Dallin 02/15/[address] [facility] evaluation + Plan note Future Appointments Appointment Date:03/28/2024 02:40:00 PM Scheduled Provider:Marianne Lozano MD Location:FT.ONCOLOGY Appointment Type:ONC Office Visit 30 (FT) Appointment Date:02/19/2025 02:30:00 PM Scheduled Provider: Location:[facility] Appointment Type:FM Medicare Wellness Subsequent Diagnostic Tests Pending * Intrinsic Factor Antibody 03/20/24 Future Scheduled Tests Laboratory* HCV Antibody RFX to Quant PCR 02/15/24 * Basic Metabolic Panel 05/20/23 Radiology* MA Mamm Screen w/CAD if perf and 3D Dallin 02/15/[address] [facility] evalutshfp + Plan note Future Appointments Appointment Date:06/26/2024 03:00:00 PM Scheduled Provider:Marianne Lozano MD [facility] Type:ONC Office Visit 20 (FT) Appointment Date:02/19/2025 02:30:00 PM Scheduled Provider: Location:[facility] Appointment Type:FM Medicare Wellness Subsequent Future Scheduled Tests Laboratory* HCV Antibody RFX to Quant PCR 02/15/24 * Basic Metabolic Panel 05/20/23 * CBC w/ Auto Diff 06/28/24 * Ferritin 06/28/24 * Iron Level 06/28/24 * Iron Percent Saturation 06/28/24 * Transferrin 06/28/24 * Vitamin B12 Level 06/28/24 Radiology* MA Mamm Screen w/CAD if perf and 3D Dallin 02/15/[address] [facility] evaluation + Plan note Future Appointments Appointment Date:05/01/2024 08:30:00 AM Scheduled Provider: Location:.ONCOLOGY Appointment Type:ONC Injection (FT) Appointment Date:06/26/2024 03:00:00 PM Scheduled Provider:Marianne Lozano MD Location:.ONCOLOGY Appointment Type:ONC Office Visit 20 (FT) Appointment Date:02/19/2025 02:30:00 PM Scheduled Provider: Location:[facility] Appointment Type:FM Medicare Wellness Subsequent Future Scheduled Tests Laboratory* HCV Antibody RFX to Quant PCR 02/15/24 * Basic Metabolic Panel 05/20/23 * CBC w/ Auto Diff 06/28/24 * Ferritin 06/28/24 * Iron Level 06/28/24 * Iron Percent Saturation 06/28/24 * Transferrin 06/28/24 * Vitamin B12 Level 06/28/24 Radiology* MA Mamm Screen w/CAD if perf and 3D Dallin 02/15/[address] [facility] evaluation + Plan note Future Appointments Appointment Date:05/30/2024 01:00:00 PM Scheduled Provider:Issac Conway MD Location:[facility] Appointment Type: Open Appointment Date:06/26/2024 03:00:00 PM Scheduled Provider:Marianne Lozano MD Location:.ONCOLOGY Appointment Type:ONC Office Visit 20 (FT) Appointment Date:06/26/2024 03:00:00 PM [facility]uled [facility] Type:ONC Injection (FT) Appointment Date:02/19/2025 02:30:00 PM Scheduled Provider: Location:[facility] Appointment Type:FM Medicare Wellness Subsequent Future Scheduled Tests Laboratory* HCV Antibody RFX to Quant PCR 02/15/24 * Basic Metabolic Panel 05/20/23 * CBC w/ Auto Diff 06/28/24 * Ferritin 06/28/24 * Iron Level 06/28/24 * Iron Percent Saturation 06/28/24 * Transferrin 06/28/24 * Vitamin B12 Level 06/28/24 Radiology* MA Mamm Screen w/CAD if perf and 3D Dallin 02/15/[address] [facility] evaluation + Plan note Future Appointments Appointment Date:06/26/2024 03:00:00 PM Scheduled Provider:Marianne Lozano MD Location:.ONCOLOGY Appointment Type:ONC Office Visit 20 (FT) Appointment Date:06/29/2024 01:15:00 PM Scheduled Provider:Issac Conway MD Location:[facility] Appointment Type:FM Open Appointment Date:07/11/2024 02:00:00 PM Scheduled Provider: Location:.ONCOLOGY Appointment Type:ONC Injection (FT) Appointment Date:08/08/2024 02:00:00 PM Scheduled Provider: Location:.ONCOLOGY Appointment Type:ONC Injection (FT) Appointment Date:09/05/2024 02:00:00 PM Scheduled Provider: Location:.ONCOLOGY Appointment Type:ONC Injection (FT) Appointment Date:10/03/2024 02:00:00 PM Scheduled Provider: Location:.ONCOLOGY Appointment Type:ONC Injection (FT) Appointment Date:10/31/2024 02:00:00 PM Scheduled Provider: Location:.ONCOLOGY Appointment Type:ONC Injection (FT) Appointment Date:11/28/2024 02:00:00 PM Scheduled Provider: Location:.ONCOLOGY Appointment Type:ONC Injection (FT) Appointment Date:12/26/2024 02:00:00 PM Scheduled Provider: Location:.ONCOLOGY Appointment Type:ONC Injection (FT) Appointment Date:01/23/2025 02:00:00 PM Scheduled Provider: Location:.ONCOLOGY Appointment Type:ONC Injection (FT) Appointment Date:02/19/2025 02:30:00 PM Scheduled Provider: Location:[facility] [place] Appointment Type: Medicare Wellness Subsequent Appointment Date:02/20/2025 02:00:00 PM Scheduled Provider: Location:.ONCOLOGY Appointment Type:ONC Injection (FT) Appointment Date:03/20/2025 02:00:00 PM Scheduled Provider: Location:.ONCOLOGY Appointment Type:ONC Injection (FT) Appointment Date:04/17/2025 02:00:00 PM Scheduled Provider: Location:.ONCOLOGY Appointment Type:ONC Injection (FT) Appointment Date:05/15/2025 02:00:00 PM Scheduled Provider: Location:.[facility] Appointment Type:ONC Injection (FT) Appointment Date:06/12/2025 02:00:00 PM Scheduled Provider: Location:.ONCOLOGY Appointment Type:ONC Injection (FT) Future Scheduled Tests Laboratory* HCV Antibody RFX to Quant PCR 02/15/24 Radiology* MA Mamm Screen w/CAD if perf and 3D Dallin 02/15/[address] [facility] Evaluation + Plan note Future Appointments Appointment Date:06/29/2024 01:15:00 PM Scheduled Provider:Issac Conway MD Location:[facility] Appointment Type:FM Open Appointment Date:07/11/2024 02:00:00 PM Scheduled Provider: Location:.[facility]COL[facility] Appointment Type:ONC Injection (FT) Appointment Date:07/11/2024 02:20:00 PM Scheduled Provider:Marianne Lozano MD Location:.ONCOLOGY Appointment Type:ONC Office Visit 20 (FT) Appointment Date:08/08/2024 02:00:00 PM Scheduled Provider: Location:FT.[facility] Appointment Type:ONC Injection (FT) Appointment Date:09/05/2024 02:00:00 PM Scheduled Provider: Location:[facility] Appointment Type:ONC Injection (FT) Appointment Date:10/03/2024 02:00:00 PM Scheduled Provider: Location:FT.[facility] Appointment Type:ONC Injection (FT) Appointment Date:10/31/2024 02:00:00 PM Scheduled Provider: Location:[facility] Appointment Type:ONC Injection (FT) Appointment Date:11/28/2024 02:00:00 PM Scheduled Provider: Location:FT.[facility] Appointment Type:ONC Injection (FT) Appointment Date:12/26/2024 02:00:00 PM Scheduled Provider: Location:[facility] Appointment Type:ONC Injection (FT) Appointment Date:01/23/2025 02:00:00 PM Scheduled Provider: Location:.ONCOLOGY Appointment Type:ONC Injection (FT) Appointment Date:02/19/2025 02:30:00 PM Scheduled Provider: Location:[facility] Appointment Type:FM Medicare Wellness Subsequent Appointment Date:02/20/2025 02:00:00 PM Scheduled Provider: Location:.[facility]COL[facility]Y Appointment Type:ONC Injection (FT) Appointment Date:03/20/2025 02:00:00 PM Scheduled Provider: Location:.ONCOLOGY Appointment Type:ONC Injection (FT) Appointment Date:04/17/2025 02:00:00 PM Scheduled Provider: Location:FT.[facility] Appointment Type:ONC Injection (FT) Appointment Date:05/15/2025 02:00:00 PM Scheduled Provider: Location:.[facility] Appointment Type:ONC Injection (FT) Appointment Date:06/12/2025 02:00:00 PM Scheduled Provider: Location:.[facility] Appointment Type:ONC Injection (FT) Future Scheduled Tests Laboratory* HCV Antibody RFX to Quant PCR 02/15/24 Radiology* MA Mamm Screen w/CAD if perf and 3D Dallin 02/15/[address] [facility] Evaluation + Plan note Future Appointments Appointment Date:07/25/2024 02:15:00 PM Scheduled Provider:Issac Conway MD Location:[facility] Appointment Type: Open Appointment Date:08/08/2024 11:00:00 AM Scheduled Provider: Location:.[facility]COL[facility] Appointment Type:ONC Injection (FT) Appointment Date:09/05/2024 02:00:00 PM Scheduled Provider: Location:.ONCOLOGY Appointment Type:ONC Injection (FT) Appointment Date:10/03/2024 02:00:00 PM Scheduled Provider: Location:.ONCOLOGY Appointment Type:ONC Injection (FT) Appointment Date:10/31/2024 02:00:00 PM Scheduled Provider: Location:.[facility]COL[facility] Appointment Type:ONC Injection (FT) Appointment Date:11/06/2024 02:00:00 PM Scheduled Provider:Marta GUY, Marianne Carney Location:.ONCOLOGY Appointment Type:ONC Office Visit 20 (FT) Appointment Date:11/28/2024 02:00:00 PM Scheduled Provider: Location:.ONCOLOGY Appointment Type:ONC Injection (FT) Appointment Date:12/26/2024 02:00:00 PM Scheduled Provider: Location:.ONCOLOGY Appointment Type:ONC Injection (FT) Appointment Date:01/23/2025 02:00:00 PM Scheduled Provider: Location:.ONCOLOGY Appointment Type:ONC Injection (FT) Appointment Date:02/19/2025 02:30:00 PM Scheduled Provider: Location:[facility] Appointment Type: Medicare Wellness Subsequent Appointment Date:02/20/2025 02:00:00 PM Scheduled Provider: Location:.[facility]COL[facility] Appointment Type:ONC Injection (FT) Appointment Date:03/20/2025 02:00:00 PM Scheduled Provider: Location:.ONCOLOGY Appointment Type:ONC Injection (FT) Appointment Date:04/17/2025 02:00:00 PM Scheduled Provider: Location:.ONCOLOGY Appointment Type:ONC Injection (FT) Appointment Date:05/15/2025 02:00:00 PM Scheduled Provider: Location:.ONCOLOGY Appointment Type:ONC Injection (FT) Appointment Date:06/12/2025 02:00:00 PM Scheduled [facility]: [facility] Type:[facility]C Injection (FT) Future Scheduled Tests Laboratory* HCV Antibody RFX to Quant PCR 02/15/24 * CBC w/ Auto Diff 11/08/24 * Ferritin 11/08/24 * Folate Level 11/08/24 * Iron Level 11/08/24 * Iron Percent Saturation 11/08/24 * Transferrin 11/08/24 * Vitamin B12 Level 11/08/24 Radiology* MA Mamm Screen w/CAD if perf and 3D Dallin 02/15/[address] [facility] evaluation + Plan note Future Appointments Appointment Date:11/06/2024 02:00:00 PM Scheduled Provider:Marta GUY, Marianne Carney [facility] Type:ONC Office Visit 20 (FT) Appointment Date:01/29/2025 01:40:00 PM Scheduled Provider:Issac Conway MD Location:[facility] Appointment Type: Open Appointment Date:02/19/2025 02:30:00 PM Scheduled Provider: Location:[facility] Appointment Type:FM Medicare Wellness Subsequent Future Scheduled Tests Laboratory* HCV Antibody RFX to Quant PCR 02/15/24 Radiology* MA Mamm Screen w/CAD if perf and 3D Dallin 02/15/[address] [facility] evaluation + Plan note Future Appointments Appointment Date:11/20/2024 12:00:00 PM Scheduled Provider: Location:.[facility] Appointment Type:CT Abdomen/Pelvis Combo (FT) Appointment Date:12/05/2024 02:00:00 PM Scheduled Provider: Location:.[facility]COL[facility] Appointment Type:ONC Injection (FT) Appointment Date:01/02/2025 02:00:00 PM Scheduled Provider: Location:.ONCOLOGY Appointment Type:ONC Injection (FT) Appointment Date:01/29/2025 01:40:00 PM Scheduled Provider:Issac Conway MD Location:[facility] Appointment Type: Open Appointment Date:01/30/2025 02:00:00 PM Scheduled Provider: Location:.[facility]COL[facility] Appointment Type:ONC Injection (FT) Appointment Date:02/19/2025 02:30:00 PM Scheduled Provider: Location:[facility] Appointment Type: Medicare Wellness Subsequent Appointment Date:02/27/2025 02:00:00 PM Scheduled Provider: Location:.ONCOL[facility] Appointment Type:ONC Injection (FT) Appointment Date:03/27/2025 02:00:00 PM Scheduled Provider: Location:.ONCOLOGY Appointment Type:ONC Injection (FT) Appointment Date:04/24/2025 02:00:00 PM Scheduled Provider: Location:.ONCOLOGY Appointment Type:ONC Injection (FT) Appointment Date:05/07/2025 01:00:00 PM Scheduled Provider:Marianne Lozano MD Location:.ONCOLOGY Appointment Type:ONC Office Visit 20 (FT) Appointment Date:05/22/2025 02:00:00 PM Scheduled Provider: Location:.[facility]COL[facility] Appointment Type:ONC Injection (FT) Appointment Date:06/19/2025 02:00:00 PM Scheduled Provider: Location:.ONCOLOGY Appointment Type:ONC Injection (FT) Appointment Date:07/17/2025 02:00:00 PM Scheduled Provider: Location:.ONCOLOGY Appointment Type:ONC Injection (FT) Appointment Date:08/14/2025 02:00:00 PM Scheduled Provider: Location:.ONCOL[facility] Appointment Type:ONC Injection (FT) Appointment Date:09/11/2025 02:00:00 PM Scheduled Provider: Location:.ONCOL[facility] Appointment Type:ONC Injection (FT) Appointment Date:10/09/2025 02:00:00 PM Scheduled Provider: Location:.[facility] Appointment Type:ONC Injection (FT) Appointment Date:11/06/2025 02:00:00 PM Scheduled Provider: Location:.[facility]COL[facility] Appointment Type:ONC Injection (FT) Future Scheduled Tests Laboratory* HCV Antibody RFX to Quant PCR 02/15/24 * Stool Occult Blood 11/07/24 * CBC w/ Auto Diff 04/30/25 * Ferritin 04/30/25 * Folate Level 04/30/25 * Iron Level 04/30/25 * Iron Percent Saturation 04/30/25 * Transferrin 04/30/25 * Vitamin B12 Level 04/30/25 Radiology* CT Abdomen/Pelvis w/ Contrast 11/20/24 * MA Mamm Screen w/CAD if perf and 3D Dallin 02/15/[address] [facility] Evaluation + Plan note Future Appointments Appointment Date:11/20/2024 12:00:00 PM Scheduled Provider: Location:.[facility] Appointment Type:CT Abdomen/Pelvis Combo (FT) Appointment Date:11/27/2024 11:00:00 AM Scheduled Provider:Marianne Lozano MD Location:.[facility]COL[facility] Appointment Type:ONC Office Visit 20 (FT) Appointment Date:12/05/2024 02:00:00 PM Scheduled Provider: Location:.ONCOL[facility]Y Appointment Type:ONC Injection (FT) Appointment Date:12/06/2024 12:30:00 PM Scheduled Provider:Jazlyn Calderon MD Location:[facility] Appointment Type:BADH Screening Appointment Date:01/02/2025 02:00:00 PM Scheduled Provider: Location:.ONCOL[facility]Y Appointment Type:ONC Injection (FT) Appointment Date:01/29/2025 01:40:00 PM Scheduled Provider:Issac Conway MD Location:[facility] Appointment Type:FM Open Appointment Date:01/30/2025 02:00:00 PM Scheduled Provider: Location:.[facility]COL[facility] Appointment Type:ONC Injection (FT) Appointment Date:02/19/2025 02:30:00 PM Scheduled Provider: Location:[facility] Appointment Type: Medicare Wellness Subsequent Appointment Date:02/27/2025 02:00:00 PM Scheduled Provider: Location:.[facility]COL[facility] Appointment Type:ONC Injection (FT) Appointment Date:03/27/2025 02:00:00 PM Scheduled Provider: Location:.ONCOLOGY Appointment Type:ONC Injection (FT) Appointment Date:04/24/2025 02:00:00 PM Scheduled Provider: Location:.[facility]COL[facility] Appointment Type:ONC Injection (FT) Appointment Date:05/07/2025 01:00:00 PM Scheduled Provider:Marianne Lozano MD Location:.ONCOLOGY Appointment Type:ONC Office Visit 20 (FT) Appointment Date:05/22/2025 02:00:00 PM Scheduled Provider: Location:.ONCOLOGY Appointment Type:ONC Injection (FT) Appointment Date:06/19/2025 02:00:00 PM Scheduled [facility]: [facility] Type:[facility]C Injection (FT) Appointment Date:07/17/2025 02:00:00 PM Scheduled Provider: [facility] Type:ONC Injection (FT) Appointment Date:08/14/2025 02:00:00 PM Scheduled Provider: [facility] Type:ONC Injection (FT) Appointment Date:09/11/2025 02:00:00 PM Scheduled Provider: Location:.ONCOLOGY Appointment Type:ONC Injection (FT) Appointment Date:10/09/2025 02:00:00 PM Scheduled Provider: Location:.ONCOLOGY Appointment Type:ONC Injection (FT) Appointment Date:11/06/2025 02:00:00 PM Scheduled Provider: [facility] Type:ONC Injection (FT) Future Scheduled Tests Laboratory* HCV Antibody RFX to Quant PCR 02/15/24 * CBC w/ Auto Diff 04/30/25 * Ferritin 04/30/25 * Folate Level 04/30/25 * Iron Level 04/30/25 * Iron Percent Saturation 04/30/25 * Transferrin 04/30/25 * Vitamin B12 Level 04/30/25 Radiology* CT Abdomen/Pelvis w/ Contrast 11/20/24 * MA Mamm Screen w/CAD if perf and 3D Dallin 02/15/[address] [facility] Evaluation + Plan note Future Appointments Appointment Date:11/27/2024 11:00:00 AM Scheduled Provider:Marta GUY, Marianne Carney [facility] Type:ONC Office Visit 20 (FT) Appointment Date:12/05/2024 02:00:00 PM Scheduled Provider: [facility] Type:ONC Injection (FT) Appointment Date:12/06/2024 12:30:00 PM Scheduled Provider:Jazlyn Calderon MD Location:[facility] Appointment Type:BADH Screening Appointment Date:01/02/2025 02:00:00 PM Scheduled Provider: [facility] Type:ONC Injection (FT) Appointment Date:01/29/2025 01:40:00 PM Scheduled Provider:Issac Conway MD Location:[facility] Appointment Type:FM Open Appointment Date:01/30/2025 02:00:00 PM Scheduled Provider: Location:.ONCOL[facility]Y Appointment Type:ONC Injection (FT) Appointment Date:02/19/2025 02:30:00 PM Scheduled Provider: Location:[facility] [place] Appointment Type: Medicare Wellness Subsequent Appointment Date:02/27/2025 02:00:00 PM Scheduled Provider: Location:.[facility] Appointment Type:ONC Injection (FT) Appointment Date:03/27/2025 02:00:00 PM Scheduled Provider: Location:.ONCOL[facility] Appointment Type:ONC Injection (FT) Appointment Date:04/24/2025 02:00:00 PM Scheduled Provider: Location:.ONCOL[facility]Y Appointment Type:ONC Injection (FT) Appointment Date:05/07/2025 01:00:00 PM Scheduled Provider:Marianne Lozano MD Location:.ONCOLOGY Appointment Type:ONC Office Visit 20 (FT) Appointment Date:05/22/2025 02:00:00 PM Scheduled Provider: Location:.ONCOL[facility]Y Appointment Type:ONC Injection (FT) Appointment Date:06/19/2025 02:00:00 PM Scheduled Provider: Location:.ONCOL[facility]Y Appointment Type:ONC Injection (FT) Appointment Date:07/17/2025 02:00:00 PM Scheduled Provider: Location:.ON[facility] Appointment Type:ONC Injection (FT) Appointment Date:08/14/2025 02:00:00 PM Scheduled Provider: Location:.ONCOL[facility] Appointment Type:ONC Injection (FT) Appointment Date:09/11/2025 02:00:00 PM Scheduled Provider: Location:.ONCOL[facility] Appointment Type:ONC Injection (FT) Appointment Date:10/09/2025 02:00:00 PM Scheduled Provider: Location:.ONCOL[facility] Appointment Type:ONC Injection (FT) Appointment Date:11/06/2025 02:00:00 PM Scheduled Provider: Location:.[facility]COL[facility] Appointment Type:ONC Injection (FT) Future Scheduled Tests Laboratory* HCV Antibody RFX to Quant PCR 02/15/24 * CBC w/ Auto Diff 04/30/25 * Ferritin 04/30/25 * Folate Level 04/30/25 * Iron Level 04/30/25 * Iron Percent Saturation 04/30/25 * Transferrin 04/30/25 * Vitamin B12 Level 04/30/25 Radiology* MA Mamm Screen w/CAD if perf and 3D Dallin 02/15/[address] [facility] Evaluation + Plan note Future Appointments Appointment Date:12/06/2024 12:30:00 PM Scheduled Provider:Jazlyn Calderon MD Location:[facility] Appointment Type:BADH Screening Appointment Date:01/02/2025 02:00:00 PM Scheduled Provider: Location:.ONCOL[facility] Appointment Type:ONC Injection (FT) Appointment Date:01/29/2025 01:40:00 PM Scheduled Provider:Issac Conway MD Location:[facility] Appointment Type:FM Open Appointment Date:01/30/2025 02:00:00 PM Scheduled Provider: Location:.ONCOL[facility]Y Appointment Type:ONC Injection (FT) Appointment Date:02/19/2025 02:30:00 PM Scheduled Provider: Location:[facility] Appointment Type: Medicare Wellness Subsequent Appointment Date:02/27/2025 02:00:00 PM Scheduled Provider: Location:.[facility]COL[facility] Appointment Type:ONC Injection (FT) Appointment Date:03/27/2025 02:00:00 PM Scheduled Provider: Location:.ONCOL[facility] Appointment Type:ONC Injection (FT) Appointment Date:04/24/2025 02:00:00 PM Scheduled Provider: Location:.ONCOL[facility]Y Appointment Type:ONC Injection (FT) Appointment Date:05/07/2025 01:00:00 PM Scheduled Provider:Marianne Lozano MD Location:.ONCOLOGY Appointment Type:ONC Office Visit 20 (FT) Appointment Date:05/22/2025 02:00:00 PM Scheduled Provider: Location:.ONCOL[facility]Y Appointment Type:ONC Injection (FT) Appointment Date:06/19/2025 02:00:00 PM Scheduled Provider: Location:.ONCOLOGY Appointment Type:ONC Injection (FT) Appointment Date:07/17/2025 02:00:00 PM Scheduled Provider: Location:.ONCOL[facility]Y Appointment Type:ONC Injection (FT) Appointment Date:08/14/2025 02:00:00 PM Scheduled Provider: Location:.ONCOLOGY Appointment Type:ONC Injection (FT) Appointment Date:09/11/2025 02:00:00 PM Scheduled Provider: Location:.ONCOLOGY Appointment Type:ONC Injection (FT) Appointment Date:10/09/2025 02:00:00 PM Scheduled Provider: Location:.ONCOL[facility]Y Appointment Type:ONC Injection (FT) Appointment Date:11/06/2025 02:00:00 PM Scheduled Provider: Location:.ONCOLOGY Appointment Type:ONC Injection (FT) Future Scheduled Tests Laboratory* HCV Antibody RFX to Quant PCR 02/15/24 * CBC w/ Auto Diff 04/30/25 * Ferritin 04/30/25 * Folate Level 04/30/25 * Iron Level 04/30/25 * Iron Percent Saturation 04/30/25 * Transferrin 04/30/25 * Vitamin B12 Level 04/30/25 Radiology* MA Mamm Screen w/CAD if perf and 3D Dallin 02/15/[address] [facility] Evaluation + Plan note Future Appointments Appointment Date:01/02/2025 02:00:00 PM Scheduled Provider: Location:.ONCOLOGY Appointment Type:ONC Injection (FT) Appointment Date:01/16/2025 12:30:00 PM Scheduled Provider:Jazlyn Calderon MD Location:[facility] Appointment Type:BADH Follow Up Appointment Date:01/29/2025 01:40:00 PM Scheduled Provider:Issac Conway MD Location:[facility] Appointment Type: Open Appointment Date:01/30/2025 02:00:00 PM Scheduled Provider: [facility] Type:ONC Injection (FT) Appointment Date:02/19/2025 02:30:00 PM Scheduled Provider: Location:[facility] Appointment Type: Medicare Wellness Subsequent Appointment Date:02/27/2025 02:00:00 PM Scheduled Provider: Location:.ONCOL[facility]Y Appointment Type:ONC Injection (FT) Appointment Date:03/27/2025 02:00:00 PM Scheduled Provider: Location:.ONCOLOGY Appointment Type:ONC Injection (FT) Appointment Date:04/24/2025 02:00:00 PM Scheduled Provider: Location:.[facility]COL[facility] Appointment Type:ONC Injection (FT) Appointment Date:05/07/2025 01:00:00 PM Scheduled Provider:Marianne Lozano MD Location:.ONCOL[facility]Y Appointment Type:ONC Office Visit 20 (FT) Appointment Date:05/22/2025 02:00:00 PM Scheduled Provider: Location:.ONCOL[facility]Y Appointment Type:ONC Injection (FT) Appointment Date:06/19/2025 02:00:00 PM Scheduled Provider: Location:.ONCOL[facility]Y Appointment Type:ONC Injection (FT) Appointment Date:07/17/2025 02:00:00 PM Scheduled Provider: Location:.ONCOL[facility]Y Appointment Type:ONC Injection (FT) Appointment Date:08/14/2025 02:00:00 PM Scheduled Provider: Location:.ONCOL[facility]Y Appointment Type:ONC Injection (FT) Appointment Date:09/11/2025 02:00:00 PM Scheduled Provider: Location:.[facility] Appointment Type:ONC Injection (FT) Appointment Date:10/09/2025 02:00:00 PM Scheduled Provider: Location:.[facility]Y Appointment Type:ONC Injection (FT) Appointment Date:11/06/2025 02:00:00 PM Scheduled Provider: Location:.ONCOLOGY Appointment Type:ONC Injection (FT) Future Scheduled Tests Laboratory* [id number] 12/06/24 * Ceruloplasmin 12/06/24 * Antimitochondrial Antibody, Quantitative 12/06/24 * Alkaline Phosphatase Isoenzymes 12/06/24 * Smooth Muscle Antibody Screen 12/06/24 * NARCISA w/Reflex if POS 12/06/24 * IgG, Quant. 12/06/24 * Hepatitis A Virus (HAV) Antibody, Total 12/06/24 * Acute Hepatitis A B C Panel 12/06/24 * HCV Antibody RFX to Quant PCR 02/15/24 * Vitamin D 25 Hydroxy 12/06/24 * CBC w/ Auto Diff 04/30/25 * Ferritin 04/30/25 * Folate Level 04/30/25 * Iron Level 04/30/25 * Iron Percent Saturation 04/30/25 * Transferrin 04/30/25 * Vitamin B12 Level 04/30/25 Radiology* MA Mamm Screen w/CAD if perf and 3D Dallin 02/15/24 [facility] Evaluation note* Diagnosis Encounter for assessment for small bowel obstruciton- [facility] Diagnosis Incisional hernia, without obstruction or gangrene- Primary Incisional hernia without mention of obstruction or gangrene documented in this encounter [facility] note* Diagnosis Preoperative examination- Primary Preoperative examination, unspecified Incisional hernia, without obstruction or gangrene Incisional hernia without mention of obstruction or gangrene documented in this encounter [facility] note* Diagnosis Preoperative examination- Primary Preoperative examination, unspecified Incisional hernia, without obstruction or gangrene Incisional hernia without mention of obstruction or gangrene Type 2 diabetes mellitus without complication, without long-term current use of insulin (HCC) Chronic obstructive pulmonary disease, unspecified COPD type (HCC) Supplemental oxygen dependent Dependence on supplemental oxygen Coronary artery disease involving [place] coronary artery of [place] heart without angina pectoris Primary hypertension Unspecified essential hypertension Hyperlipidemia, unspecified hyperlipidemia type Congestive heart failure, unspecified HF chronicity, unspecified heart failure type (HCC) Gastroesophageal reflux disease without esophagitis Esophageal reflux Preoperative examination Preoperative examination, unspecified Incisional hernia, without obstruction or gangrene Incisional hernia without mention of obstruction or gangrene * Assessment & Plan Note - Tawana Robertson PA-C - 03/21/2024 1:26 PM EDT Associated Problem(s): Type 2 diabetes mellitus without complication, without long-term current useof insulin ([facility]) -stable on metformin -labs pending * Assessment & Plan Note - Tawana Robertson PA-C - 03/21/2024 1:26 PM EDT Associated Problem(s): GERD (gastroesophageal reflux disease) -stable on PPI * Assessment & Plan Note - Tawana Robertson PA-C - 03/21/2024 1:25 PM EDT Associated Problem(s): CHF (congestive heart failure) ([facility]) -per cardiology note recent echo EF 40%, requested records of recent echo -on Lasix -denies new or worsening cardiac symptoms, EKG Pending -Follows with cardiology Dr. Ac Gomes last visit 07/27/23 * Assessment & Plan Note - Tawana Robertson PA-C - 03/21/2024 1:24 PM EDT Associated Problem(s): HLD (hyperlipidemia) -stable on rx * Assessment & Plan Note - Tawana Robertson PA-C - 03/21/2024 1:22 PM EDT Associated Problem(s): HTN (hypertension) -stable on amlodipine and Lasix -BP in office 144/51 -denies new or worsening cardiac symptoms, EKG Pending -Follows with cardiology Dr. Ac Gomes last visit 07/27/23 * Assessment & Plan Note - Tawana Robertson PA-C - 03/21/2024 1:22 PM EDT Associated Problem(s): CAD (coronary artery disease) -s/p PCI 2017, cardiac cath 02/2023 nonobstructive CAD -stable on aspirin and Imdur -denies new or worsening cardiac symptoms, EKG Pending -Follows with cardiology Dr. Ac Gomes last visit 07/27/23 * Assessment & Plan Note - Tawana Robertson PA-C - 03/21/2024 1:21 PM EDT Associated Problem(s): Supplemental oxygen dependent -wears 2L of home O2 most of the time -SpO2 96% on room air -Follows with pulmonology Dr. Linda Martinez last visit 2-3 months ago * Assessment & Plan Note - Tawana Robertson PA-C - 03/21/2024 1:21 PM EDT Associated Problem(s): COPD (chronic obstructive pulmonary disease) (HCC) -stable on Duoneb, wears 2L of home O2 most of the time -denies new or worsening cough or SOB -Follows with pulmonology Dr. Linda Martinez last visit 2-3 months ago, requested records documented in this encounter [facility] note* Diagnosis Preoperative examination- Primary Preoperative examination, unspecified Incisional hernia, without obstruction or gangrene Incisional hernia without mention of obstruction or gangrene Type 2 diabetes mellitus without complication, without long-term current use of insulin (HCC) Chronic obstructive pulmonary disease, unspecified COPD type (HCC) Supplemental oxygen dependent Dependence on supplemental oxygen Coronary artery disease involving [place] coronary artery of [place] heart without angina pectoris Primary hypertension Unspecified essential hypertension Hyperlipidemia, unspecified hyperlipidemia type Congestive heart failure, unspecified HF chronicity, unspecified heart failure type (HCC) Gastroesophageal reflux disease without esophagitis Esophageal reflux Postoperative visit- Primary Other specified aftercare following surgery documented in this encounter [facility] note* Diagnosis Onset Date Resolution Status Admit Date COPD exacerbation acute y 2024 2:52pm [facility] Work Phone: Hospital course Narrative No data available for this section [facility] No data available for this section [facility] No data available for this section [facility] for referral (narrative) Referred by: EMORY GUY, Juan Pablo King General Surgery [place] Summary Purpose Family History Relationship Condition Age at Onset Recorded Date/T ariane father Malignant neoplasm Unknown Heart disease Unknown Cerebrovascular accident (CVA) Unknown mother Heart disease Unknown Diabetes mellitus Unknown Advance Directives Latest Code Status on File Code Status Date Activated Date Inactivated Comments Full Code 07/04/2022 6:40 AM Documentation of decision pr ocess for this code status: Patient and surrogate unable or unavailable to discuss. There is no previous documentation of code status. Defaulting to Full Code Latest Code Status on File Code Status Date Activated Date Inactivated Comments Full Code 07/04/2022 6:40 AM 07/06/2022 2:46 PM Advance Directive Response Recorded Date/ Time Advance Directives No September 2:44pm Hospital Course Note MR#: [id number] [facility] Pt. Name: Johanna Macdonald Admitted: 07/31/2018 Discharged: 08/02/2018 Date of : 1955 Physician: Cat Eaton MD DISCHARGE SUMMARY DIAGNOSES AT ADMISSION: 1. Cqb-CJ-nhdxzotmb myocardial infarction. 2. Chronic obstructive pulmonary disease. 3. Diabetes mellitus type 2. DIAGNOSES AT DISCHARGE: 1. Uab-HO-vksiuomcw myocardial infarction, status post drug-eluting stent to RCA. 2. Coronary artery disease, on dual antiplatelets and high-intensity statins. 3. Diabetes mellitus type 2. 4. Chronic obstructive pulmonary disease, stable. 5. Gastroesophageal reflux disease. HOSPITAL COURSE: This is a 63-year-old female, who came to the hospital for chest pain, which was nonexertional associated with mild elevation of troponins without any significant EKG changes, admitted to medical ICU and Cardiology consulted for left heart cath. Left heart cath shows in the RCA, for which she underwent drug-eluting stent placement. She has bee (more content not included)... Reason for Referral Specialty Diagnoses / Procedures Referred By [facility] white Referred To Contact CT IMAGING Diagnoses Postoperative visit Procedures CT ABD/PEL WO IVCON CT ABD & PELVIS W/O CONTRAST María Guzman, CARYN.JET MECHANIC [address] [place] [address] [place] [address] Referral ID Status Reason Start Date Expiration Date Visits Requested Visits Authorized [id number] New Request Auto-Generat ed Referral 04/21/2025 05/21/2025 1 1 Specialty Diagnoses / Procedures Referred By [facility] white Referred To Contact Diagnoses Preoperative examination Incisional hernia, without obstruction or gangrene Procedures REFER TO PACC - PRE ANESTHESIA CONSULTATION CLINIC OFFICE/OUTPATIENT NEW HIGH MDM 60 MINUTES María Guzman APRN.JET MECHANIC [address] [place] [address] Referral ID Status Reason Start Date Expiration Date Visits Requested Visits Authorized [id number] Pending Review PCP Requested Referral 12/30/2023 12/28/2024 1 1 Specialty Diagnoses / Procedures Referred By Contac t Referred [facility] Diagnoses Preoperative examination Incisional hernia, without obstruction or gangrene Procedures ECG COMPLETE ECG ROUTINE ECG W/LEAST 12 LDS W/I&R María Guzman APRN.JET MECHANIC [address] [place] [address] [facility] [place] [address] [place] [address] Referral ID Status Reason Start Date Expiration Date Visits Requested Visits Authorized [id number] Pending Review Auto-Generat ed Referral 12/30/2023 12/28/2024 1 1 Specialty Diagnoses / Procedures Referred By Contac t Referred To Contact Diagnoses Preoperative examination Incisional hernia, without obstruction or gangrene Procedures CONSULT TO [facility] BEHAVIORAL [facility]ICINE OFFICE/[facility]PATIENT [facility] 60 MINUTES María Guzman APRN.JET MECHANIC [address] [place] [address] Referral ID Status Reason Start Date Expiration Date Visits Requested Visits Authorized [id number] Pending Review PCP Requested Referral 12/30/2023 12/28/2024 1 1 Chief Complaint and Reason for Visit Chief Complaint Admit Date sore throat, headache, sneezing, tight c hest October 06, 2024 2:52pm Reason for Visit Admit Date COPD exacerbation October 06, 2024 2:52pm Additional Source Comments INFORMATION SOURCE (unrecogn ized section and content) DATE CREATED AUTHOR 04/08/2019 [facility] DATE CREATED AUTHOR AUTHOR'S ORGANIZ ATION 07/09/2022 [facility] DATE CREATED AUTHOR AUTHOR'S ORGANIZ ATION 01/26/2023 [facility] DATE CREATED AUTHOR AUTHOR'S ORGANIZ ATION 02/03/2024 Argueta Berto [facility] DATE CREATED AUTHOR AUTHOR'S ORGANIZ ATION 03/01/2024 Argueta Berto [facility] DATE CREATED AUTHOR AUTHOR'S ORGANIZ ATION 03/22/2024 Argueta Latimer [facility] DATE CREATED AUTHOR AUTHOR'S ORGANIZ ATION 03/23/2024 Argueta Latimer [facility] DATE CREATED AUTHOR AUTHOR'S ORGANIZ ATION 05/10/2024 [facility] DATE CREATED AUTHOR AUTHOR'S ORGANIZ ATION 05/25/2024 [facility] DATE CREATED AUTHOR AUTHOR'S ORGANIZ ATION 06/15/2024 [facility] DATE CREATED AUTHOR AUTHOR'S ORGANIZ ATION 11/03/2024 [facility] DATE CREATED AUTHOR AUTHOR'S ORGANIZ ATION 11/08/2024 [facility] DATE CREATED AUTHOR AUTHOR'S ORGANIZ ATION 11/14/2024 [facility] DATE CREATED AUTHOR AUTHOR'S ORGANIZ ATION 11/18/2024 [facility] DATE CREATED AUTHOR AUTHOR'S ORGANIZ ATION 12/06/2024 [facility] DATE CREATED AUTHOR AUTHOR'S ORGANIZ ATION 12/07/2024 [facility] DATE CREATED AUTHOR AUTHOR'S ORGANIZ ATION 12/22/2024 [facility] DATE CREATED AUTHOR AUTHOR'S ORGANIZ ATION 12/24/2024 [facility] DATE CREATED AUTHOR AUTHOR'S ORGANIZ ATION 12/26/2024 [facility] DATE CREATED AUTHOR AUTHOR'S ORGANIZ ATION 12/28/2024 [facility] Reason for Visit (unrecogniz ed section and content) Reason Comments small bowel obstruction Specialty Diagnoses / Procedures Referred By Contac t Referred To Contact Emergency Medicine Diagnoses Persons encountering health services in other specified circumstances [email or web address] [address] [place] [address] Phone: [phone] THE [employer] [address] [place] [address] Phone: [phone] Referral ID Status Reason Start Date Expiration Date Visits Re quested Visits Authorized [id number] 3 3 Specialty Diagnoses / Procedures Referred By Contac t Referred To Contact Emergency Medicine Diagnoses Persons encountering health services in other specified circumstances [facility] [employer] [facility] [address] Phone: [phone] [email or web address] [address] Phone: [phone] Reason Comments Consult Specialty Diagnoses / Procedures Referred By Contac t Referred To Contact General Surgery / GENERAL SURGERY Diagnoses 888 Procedures NEW DDI PATIENT Juju Orourke MD [address] [place] [id number] Juju Orourke MD [address] [place] [address] Referral ID Status Reason Start Date Expiration Date Visits Re quested Visits Authorized [id number] Closed 11/22/2023 08/15/2024 1 1 Reason Comments 08.23.24 Cure Open Complex AWR 5 H ours [place] 2 Reason Comments Pre-Op Visit Specialty Diagnoses / Procedures Referred By [facility] white Referred To Contact ANESTHESIOLOGY Diagnoses Preoperative examination Incisional hernia, without obstruction or gangrene Procedures REFER TO PACC - PRE ANESTHESIA CONSULTATION CLINIC OFFICE/OUTPATIENT [facility] 60 MINUTES María Guzman, SUPERVISOR SHIPPING ROOM.[facility] [address] [place] [address] [address] [place] [address] Referral ID Status Reason Start Date Expiration Date V isits Requested Visits Authorized [id number] Closed PCP Requested Referral 02/23/2024 08/15/2024 1 1 Reason Comments Request Outside Medical Records Reason Comments Post Op Scheduled Active and Recently Administ ered Medications (unrecognized section and content) Medication Order 07/04/2022 07/05/2022 07/06/2022 acetaminophen (TYLENOL) 650 MG/20.3ML oral solution SF (CANCELED) 640 mg, NG Tube, Every 6 hours, First dose on 07/04/22 at 0730, Until Discontinued 0730 (Hold/Not Given - Provider: Koki Fraga RN - Reason: Missed Dose)1330 (Hold/Not Given - Provider: Koki Fraga RN - Reason: NPO)1807 (Given - Provider: Shelli Sesay RN)2311 (Hold/Not Given - Provider: Tyra Thurman RN - Reason: Patient refused) 0630 (Hold/Not Given - Provider: Tyra Thurman RN - Reason: Patient refused)1230 (Hold/Not Given - Provider: Shelli Sesay RN - Reason: Patient refused)1830 (Hold/Not Given - Provider: Shelli Sesay RN - Reason: Patient refused) 0030 (Mistaken Entry - Provider: Tyra Thurman RN)0630 (Hold/Not Given - Provider: Tyra Thurman RN - Reason: Patient refused) acetaminophen (TYLENOL) tablet 650 mg, Oral, EVERY 6 HOURS, First dose on 07/06/22 at 0900, Until Discontinued 0859 (Given - Provider: Kate Perez RN)1500 (Due)2100 (Due) albuterol (PROVENTIL) (2.5 MG/3ML) 0.083% nebulizer solution (CANCELED) 2.5 mg, Nebulization, EVERY 4 HOURS RT, First dose on 07/04/22 at 0800, Until Discontinued 0800 (Hold/Not Given - Provider: Koki Fraga RN - Reason: Missed Dose)1154 (Given - Provider: Sabine Rai RN)1600 (Hold/Not Given - Provider: Ritesh Nvaarro RT - Reason: RT Consultant [employer] Vice President [employer] (Ex ) protocol)2000 (Hold/Not Given - Provider: Tyra Thurman RN - Reason: RT Unavailable)2357 (Given - Provider: Tyra Thurman RN) 0400 (Hold/Not Given - Provider: Tyra Thurman RN - Reason: Patient sleeping)0800 (Hold/Not Given - Provider: Candace March RT - Reason: RT Consultant [employer] Vice President [employer] (Ex ) protocol)0906 (MAR Hold - Provider: Candace March RT - Reason: RT Consultant [employer] Vice President [employer] (Ex ) protocol)1200 (Automatically Held - Provider: Candace March, RT)1600 (Automatically Held - Provider: Candace March, RT)2000 (Automatically Held - Provider: Candace March, RT) 0000 (Automatically Held - Provider: Candace March, RT)0400 (Automatically Held - Provider: Candace March, RT)0800 (Automatically Held - Provider: Candace March, RT)0832 (MAR Unhold - Provider: Almaz Damon APRN-JET MECHANIC) aspirin EC tablet 81 mg, Oral, DAILY, First dose on 07/04/22 at 0900, Until Discontinued 0900 (Hold/Not Given - Provider: Koki Fraga RN - Reason: NPO - Comment: NPO for OR) 0844 (Given - Provider: Shelli Sesay RN) 0859 (Given - Provider: Kate Perez RN) atorvastatin (LIPITOR) tablet 80 mg, Oral, DAILY, First dose on 07/04/22 at 0900, Until Discontinued 09 (Hold/Not Given - Provider: Koki Fraga RN - Reason: NPO - Comment: NPO for OR) 0844 (Given - Provider: Shelli Sesay RN) 0859 (Given - Provider: Kate ePrez RN) enoxaparin (LOVENOX) 40 MG/0.4ML injection 40 mg 40 mg, Subcutaneous, DAILY, First dose on 07/04/22 at 0900, Until Discontinued 899 (Hold/Not Given - Provider: Koki Fraga RN - Reason: Not indicated - Comment: OR) 0844 (Given - Provider: Shelli Sesay RN) 0900 (Given - Provider: Kate Perez RN) esomeprazole (NEXIUM) 40 MG injection (CANCELED) 40 mg, Intravenous Push, DAILY, First dose on 07/04/22 at 0900, Until Discontinued 1102 (Given - Provider: Suzie Bro RN) esomeprazole (NEXIUM) 40 MG injection 40 mg, Intravenous Push, 2 TIMES DAILY, First dose (after last modification) on 07/04/22 at 2130, Until Discontinued 2152 (Given - Provider: Tyra Thurman RN) 0844 (Given - Provider: Shelli Sesay RN)2100 (Given - Provider: Tyra Thurman RN) 0859 (Given - Provider: Kate Perez RN)2100 (Due) insulin regular (HumuLIN R) 100 UNIT/ML injection 2-12 Units, Subcutaneous, Every 6 hours, First dose on 07/04/22 at 0700, Until Discontinued 07 (Hold/Not Given - Provider: Koki Fraga RN - Reason: NPO)1201 (Given - Provider: Sabine Rai RN)1830 (Hold/Not Given - Provider: Shelli Sesay RN - Reason: Not indicated)1900 (Hold/Not Given - Provider: Shelli Sesay RN - Reason: Not indicated) 0030 (Hold/Not Given - Provider: Tyra Thurman RN - Reason: Patient refused)0630 (Given - Provider: Tyra Thurman RN)1236 (Given - Provider: Shelli Sesay, RN)1827 (Given - Provider: Shelli Sesay, RN)2328 (Hold/Not Given - Provider: yTra Thurman RN - Reason: Patient refused) 0611 (Hold/Not Given - Provider: Tyra Thurman RN - Reason: Clinical contraindications)12 18 (Given - Provider: Kate Perez, RN)1830 (Due - Provider: Elissa Hall) ipratropium (ATROVENT) 0.02 % nebulizer solution (CANCELED) 0.5 mg, Nebulization, EVERY 4 HOURS RT, First dose on 07/04/22 at 0800, Until Discontinued 0800 (Hold/Not Given - Provider: Koki Fraga RN - Reason: Missed Dose)1154 (Given - Provider: Sabine Rai RN)1600 (Hold/Not Given - Provider: Ritesh Navarro RT - Reason: RT Consultant [employer] Vice President [employer] (Ex ) protocol)2000 (Hold/Not Given - Provider: Tyra Thurman RN - Reason: RT Unavailable)2357 (Given - Provider: Tyra Thurman RN) 0400 (Hold/Not Given - Provider: Tyra Thurman RN - Reason: Patient sleeping)0800 (Hold/Not Given - Provider: Candace March RT - Reason: RT Consultant [employer] Vice President [employer] (Ex ) protocol)0906 (MAR Hold - Provider: Candace March RT - Reason: RT Consultant [employer] Vice President [employer] (Ex ) protocol)1200 (Automatically Held - Provider: Candace March, RT)1600 (Automatically Held - Provider: Candace March, RT)2000 (Automatically Held - Provider: Candace March, RT) 0000 (Automatically Held - Provider: Candace Boswells, RT)0400 (Automatically Held - Provider: Candace Boswells, RT)0800 (Automatically Held - Provider: Candace March, RT)0832 (MAR Unhold - Provider: Almaz Damon APRN-JET MECHANIC) ipratropium-albuterol (DUO-NEB) 0.5-2.5 (3) MG/3ML nebulizer solution (CANCELED) 3 mL, Nebulization, EVERY 4 HOURS RT, First dose on 07/04/22 at 0800, Until Discontinued 0800 (Hold/Not Given - Provider: Koki Fraga RN - Reason: Missed Dose)1154 (Given - Provider: Sabine Rai, DAVID)1600 (Due) ipratropium-albuterol (DUO-NEB) 0.5-2.5 (3) MG/3ML nebulizer solution (CANCELED) 3 mL, Nebulization, 4 TIMES DAILY, First dose on 07/04/22 at 0900, Until Discontinued 0900 (Hold/Not Given - Provider: Koki Fraga RN - Reason: Not indicated)1320 (Given - Provider: Koki Fraga RN)1700 (Due)2200 (Hold/Not Given - Provider: Tyra Thurman RN - Reason: Clinical contraindications) 0200 (Hold/Not Given - Provider: Tyra Thurman RN - Reason: Patient sleeping)0906 (MAR Hold - Provider: Candace March RT - Reason: RT Consultant [employer] Vice President [employer] (Ex ) protocol)1000 (Automatically Held - Provider: Candace March RT)1400 (Automatically Held - Provider: Candace March RT)2200 (Automatically Held - Provider: Candace March RT) 0200 (Automatically Held - Provider: Candace March RT)0832 (MAR Unhold - Provider: Almaz Damon APRN-JET MECHANIC) ipratropium-albuterol (DUO-NEB) 0.5-2.5 (3) MG/3ML nebulizer solution 3 mL, Nebulization, 4 TIMES DAILY RT, First dose (after last modification) on 07/04/22 at 2000, Until Discontinued 1949 (Given - Provider: Genoveva Orourke, RT) 0856 (Given - Provider: Candace March RT)1203 (Given - Provider: Candace March RT)1551 (Given - Provider: Lesly Sanderson, RT)2004 (Given - Provider: Lesly Sanderson RT) 0825 (Given - Provider: Christine Villa RT)1200 (Due)1600 (Due)2000 (Due) magnesium sulfate in dextrose 5 % 100 mL ivpb 1,000 mg 100 mL (COMPLETED) 1,000 mg, Intravenous, ONCE, 1 dose, On 07/05/22 at 0530 0624 (IV New Bag - Provider: Tyra Thurman, RN) methylPREDNISolone sodium succinate (SOLU-Medrol) 40 MG injection 40 mg, Intravenous Push, DAILY, 4 doses, First dose on 07/04/22 at 0900, Last dose on Wed07/07/22 at 0900 0900 (Hold/Not Given - Provider: Koki Fraga RN - Reason: Missed Dose - Comment: OR) 0844 (Given - Provider: Shelli Sesay, RN) 0859 (Given - Provider: Kate Perez RN) morphine sulfate 4 MG/ML injection (COMPLETED) 4 mg, Intravenous Push, STAT, 1 dose, On 07/04/22 at 0352 0418 (Given - Provider: Sabine Rai, DAVID) nicotine (NICODERM CQ) 14 mg/24HR patch 14 mg, Transdermal, DAILY, First dose (after last modification) on 07/04/22 at 2000, Until Discontinued 2011 (Patch Applied - Provider: Tyra Thurman, RN) 2099 (Patch Removal - Provider: Tyra Thurman, RN)2100 (Patch Applied - Provider: Tyra Thurman, RN) 1958 (Due: Patch Removal - Provider: Tyra Thurman, DAVID)1999 (Due - Provider: Elissa Hall) ondansetron (ZOFRAN) 4 MG/2ML injection (COMPLETED) 4 mg, Intravenous Push, STAT, 1 dose, On 07/04/22 at 0352 0418 (Given - Provider: Sabine Rai, DAVID) potassium chloride 20 mEq in SW 100 mL IVPB (COMPLETED) 20 mEq, Intravenous, ONCE, 1 dose, On 07/05/22 at 0530, at 50 mL/hr 0613 (IV New Bag - Provider: Tyra Thurman RN) potassium chloride 20 mEq in SW 100 mL IVPB (COMPLETED) 20 mEq, Intravenous, ONCE, 1 dose, On 07/05/22 at 0730, at 50 mL/hr 1029 (IV New Bag - Provider: Shelli Sesay, DAVID) scopolamine (TRANSDERM-SCOP) 1 MG/3DAYS patch 1.5 mg, Transdermal, EVERY 72 HOURS, First dose on 07/04/22 at 1800, Until Discontinued 180 (Patch Applied - Provider: Shelli Sesay, DAVID) Continuous Medication Order 07/04/2022 07/05/2022 07/06/2022 lactated ringers iv infusion (CANCELED) Intravenous, at 100 mL/hr, CONTINUOUS, Starting on 07/04/22 at 1700, Until 07/06/22 at 0832 1717 (IV New Bag - Provider: Shelli Sesay, RN) 0613 (IV New Bag - Provider: Tyra Thurman, RN)2100 (IV New Bag - Provider: Tyra Thurman, RN) PRN Medication Order 07/04/2022 07/05/2022 07/06/2022 albuterol (PROVENTIL) (2.5 MG/3ML) 0.083% nebulizer solution 2.5 mg, Nebulization, EVERY 4 HOURS PRN, Starting on 07/04/22 at 0641, Until Discontinued, Shortness of Breath, every 4 hours prn at NIGHT for Shortness of breath 0455 (Given - Provider: Tyra Thurman, RN) benzocaine (HURRICAINE) 20 % oral spray Topical, 4 TIMES DAILY PRN, Starting on 07/04/22 at 2015, Until Discontinued, Pain dextrose (GLUTOSE) 40 % oral gel(Linked Group 1) 15 g of glucose, Buccal, PRN, Starting on 07/04/22 at 0637, Until Discontinued, blood glucose between 50 - 69 mg/dL, and with no IV access, alert and able to swallow. dextrose (GLUTOSE) 40 % oral gel(Linked Group 1) 30 g of glucose, Buccal, PRN, Starting on 07/04/22 at 0637, Until Discontinued, blood glucose of 49mg/dL or less, and with no IV access, alert and able to swallow. dextrose 10 % iv infusion(Linked Group 1) 125 mL, Intravenous, at 999 mL/hr, PRN, Starting on 07/04/22 at 0637, Until Discontinued, For blood glucose less than 70 mg/dL, with IV access and with loss of consciousness or unable to swallow or NPO glucagon (GLUCAGEN) 1 MG injection(Linked Group 1) 1 mg, Subcutaneous, PRN, Starting on 07/04/22 at 0637, Until Discontinued, For blood glucose less than 70 mg/dL and with no IV access with loss of consciousness or alert and unable to swallow. HYDROmorphone (DILAUDID) 0.2 MG/ML injection 0.2 mg (CANCELED) 0.2 mg, Intravenous Push, EVERY 3 HOURS PRN, Starting on 07/04/22 at 1030, Until 07/06/22 at 0832, Moderate Pain (pain score 4,5,6) 2010 (Given - Provider: Tyra Thurman RN) HYDROmorphone (DILAUDID) 1 mg/mL injection (CANCELED) 0.5 mg, Intravenous Push, EVERY 3 HOURS PRN, Starting on 07/04/22 at 1031, Until 07/06/22 at 0832, Severe Pain (pain score 7,8,9,10) 1101 (Given - Provider: Suzie Bro RN)1423 (Given - Provider: Belen Price RN)1718 (Given - Provider: Shelli Sesay, DAVID)203 (Given - Provider: Tyra Thurman RN)2346 (Given - Provider: Tyra Thurman RN) 06 (Given - Provider: Tyra Thurman RN)171 (Given - Provider: Shelli Sesay, DAVID)2327 (Given - Provider: Tyra Thurman, RN) 031 (Given - Provider: Tyra Thurman, RN) ondansetron (ZOFRAN) 4 MG/2ML injection (CANCELED) 4 mg, Intravenous Push, EVERY 8 HOURS PRN, Starting on 07/04/22 at 0639, Until 07/04/22 at 2015, Nausea, Vomiting 1424 (Given - Provider: Belen Price RN) ondansetron (ZOFRAN) 4 MG/2ML injection (CANCELED) 4 mg, Intravenous Push, EVERY 4 HOURS PRN, Starting on 07/04/22 at 2030, Until 07/06/22 at 0936, Nausea, Vomiting 2032 (Given - Provider: Tyra Thurman RN) 002 (Given - Provider: Tyra Thurman RN)06 (Given - Provider: Tyra Thurman RN)[phone] (Given - Provider: Shelli Sesay, DAVID) [phone] (Given - Provider: Tyra Thurman, RN) Linked Groups Order Group 1: dextrose 10 % iv infusionJump to med 125 mL, Intravenous, at 999 mL/hr, PRN, Starting on 07/04/22 at 0637, Until Discontinued, For blood glucose less than 70 mg/dL, with IV access and with loss of consciousness or unable to swallow or NPO Or glucagon (GLUCAGEN) 1 MG injectionJump to med 1 mg, Subcutaneous, PRN, Starting on 07/04/22 at 0637, Until Discontinued, For blood glucose less than 70 mg/dL and with no IV access with loss of consciousness or alert and unable to swallow. Or dextrose (GLUTOSE) 40 % oral gelJump to med 15 g of glucose, Buccal, PRN, Starting on 07/04/22 at 0637, Until Discontinued, blood glucose between 50 - 69 mg/dL, and with no IV access, alert and able to swallow. Or dextrose (GLUTOSE) 40 % oral gelJump to med 30 g of glucose, Buccal, PRN, Starting on 07/04/22 at 0637, Until Discontinued, blood glucose of 49mg/dL or less, and with no IV access, alert and able to swallow. Patient Care team informatio n (unrecognized section and content) Personnel Name: Issac Conway MD. Address: [address] [place] [address] Telecom: [employer] Relationship Specialty Start Date End Date Karl Montes MD [address] [place] [address] PCP - General Family Medicine 08/10/13 [employer] Relationship Specialty Start Date End Date Karl Montes MD [address] [place] [address] PCP - General Family Medicine 08/10/13 [employer] Relationship Specialty Start Date End Date Issac Conway MD [address] [place], [place] [id number] PCP - General Family Medicine 03/14/24 [employer] Relationship Specialty Start Date End Date Issac Conway MD [address] [place], [place] [id number] PCP - General Family Medicine 03/14/24 Ac Gomes MD [address] [facility] [address] [place] [address] Cardiology 03/24/24 [place] [address] [facility] [address] [place], [place] [id number] Pulmonary Disease 03/24/24 [employer] Relationship Specialty Start Date End Date Issac Conway MD [address] [place] [address] PCP - General Family Medicine 03/14/24 Ac Gomes MD [address] [facility] [address] [place] [address] Cardiology 03/24/24 [place] [address] [facility] [address] [place], [place] [id number] Pulmonary Disease 03/24/24 Team Status: Active Member Role Status Dates Issac Conway MD Primary Care Provider Active Team Status: Inactive Member Role Status Dates Danyell Loredo APRN Attending Provider Active Start: October 06, 2024 End: October 06, 2024 Issac Conway MD Primary Care Provider Active Start: October 06, 2024 End: October 06, 2024 Source Comments (unrecognize d section and content) In the event this informatio n is protected by the Federal Confidentiality of Alcohol and Drug Abuse Patient Records regulations: The Federal rules restrict any use of the information to criminally investigate or prosecute any alcohol or drug abuse patient.[facility] Shaw[facility] the event this information is protected by the Federal Confidentiality of Alcohol and Drug Abuse Patient Records regulations: The Federal rules restrict any use of the information to criminally investigate or prosecute any alcohol or drug abuse patient.[facility] ShawIn the event this information is protected by the Federal Confidentiality of Alcohol and Drug Abuse Patient Records regulations: The Federal rules restrict any use of the information to criminally investigate or prosecute any alcohol or drug abuse patient.[facility] ShawIn the event this information is protected by the Federal Confidentiality of Alcohol and Drug Abuse Patient Records regulations: The Federal rules restrict any use of the information to criminally investigate or prosecute any alcohol or drug abuse patient.[facility] ShawIn the event this information is protected by the Federal Confidentiality of Alcohol and Drug Abuse Patient Records regulations: The Federal rules restrict any use of the information to criminally investigate or prosecute any alcohol or drug abuse patient.[facility] Goals (unrecognized section and content) Goals may be documented in a n alternate section FOR RECORDS PERTAINING TO PATIENTS WHO ARE OR HAVE BEEN ENROLLED IN A CHEMICAL DEPENDENCY/SUBSTANCEABUSE PROGRAM, SOME INFORMATION MAY BE OMITTED. This clinical summary was aggregated from multiple sources. Caution should be exercised in using it in the provision of clinical care. This summary normalizes information from multiple sources, and as a consequence, information in this document may materially change the coding, format and clinical context of patient data. In addition, data may be omitted in some cases. CLINICAL DECISIONS SHOULD BE BASED ON THE PRIMARY CLINICAL RECORDS. [facility] [employer] [facility]. provides no warranty or guarantee of the accuracy or completeness of information in this document.
[2024-12-30 23:32] VITALS: BP 162/95; PULSE 84; TEMP 37.1; O2SAT 96; BMI 32.3
--- NOTE | 2024-12-31 00:08 | ED_ITS ---
HPI HPI - Back Pain/Injury General Chief Complaint: Back Pain/Injury Stated Complaint: back pain Time Seen by Provider: 12/31/24 00:05 Source: patient Mode of arrival: walk-in History of Present Illness HPI Narrative: right CVA pain for past couple of days. Also had some right flank pain. Denies urinary symptoms, nausea, vomiting or fever. Denies history of similar pain Related Data Home Medications ?Medication ?Instructions ?Recorded ?Confirmed amlodipine 10 mg tablet mg 12/31/24 atorvastatin 80 mg tablet mg 12/31/24 esomeprazole magnesium 40 mg mg 12/31/24 capsule,delayed release fluticasone propionate 50 intranasal 12/31/24 mcg/actuation nasal spray,suspension ipratropium 0.5 mg-albuterol 3 mg ml inhalation (2.5 mg base)/3 mL nebulization soln isosorbide mononitrate 30 mg mg PO 12/31/24 tablet,extended release 24 hr metformin 500 mg tablet mg 12/31/24 nitroglycerin 0.4 mg sublingual mg 12/31/24 tablet nystatin 100,000 unit/gram topical topical 12/31/24 powder (Nystop) sacubitril 24 mg-valsartan 26 mg tab 12/31/24 tablet (Entresto) Allergies Allergy/AdvReac Type Severity Reaction Status Date / Time doxycycline Allergy Intermediate Vomiting Verified 12/30/24 23:55 amoxicillin Allergy Mild Hives Verified 12/30/24 23:55 atenolol Allergy Mild Hives Verified 12/30/24 23:55 cephalexin (From Keflex) Allergy Mild Hives Verified 12/30/24 23:55 ciprofloxacin Allergy Mild Hives Verified 12/30/24 23:55 clarithromycin (From Biaxin) Allergy Mild Hives Verified 12/30/24 23:55 Sulfa (Sulfonamide Allergy Mild Hives Verified 12/30/24 23:55 Antibiotics) Opioid HPI Opioid Management Most Recent Opioid Data: Last Pain Scale 10 Today, 01:01 Last ED Pain Assessment Today, 01:01 Last MAR Pain Assessment Today, 00:58 Review of Systems ROS Status of ROS 10 or more systems reviewed and unremark able except as noted in history and below PFSH PFSH Social History Little interest or pleasure in doing things: not at all Feeling down, depressed, or hopeless: not at all Exam Constitutional Vital Signs, click to edit/add: Last Vital Signs Temp 98.7 F 12/30/24 23:32 Pulse 84 12/30/24 23:32 Resp 16 12/30/24 23:32 BP 162/95 H 12/30/24 23:32 Pulse Ox 96 12/30/24 23:32 O2 Del Method Room Air 12/30/24 23:32 Common normals: no apparent distress, average body habitus, oriented x3, no limitations, healthy appearing, alert and well nourished [facility] Common normals: normocephalic and head/scalp atraumatic Eye Common normals: PERRL and EOMs intact bilaterally Respiratory Common normals: normal respiratory effort, no retractions, no use of accessory muscles and clear to auscultation bilaterally Cardio Common normals: regular rate, regular rhythm, S1 normal heart sound and S2 normal heart sound GI Common normals: Normal to inspection, nondistended, normoactive bowel sounds present Other: mild RLQ tenderness Back & Pelvis General back: CVA tenderness CVA tenderness: right Extremity Common normals: normal to inspection and full ROM Neuro Common normals: oriented x3, CN's II-XII intact bilaterally, moves all extremities and no focal motor deficits Psych Appearance: grossly normal Course Vital Signs Vital signs: Vital Signs Temperature 98.7 F 12/30/24 23:32 Pulse Rate 84 12/30/24 23:32 Respiratory Rate 16 12/30/24 23:32 Blood Pressure 162/95 H 12/30/24 23:32 Pulse Oximetry 96 12/30/24 23:32 Oxygen Delivery Method Room Air 12/30/24 23:32 Temperature 98.7 F 12/30/24 23:32 Pulse Rate 84 12/30/24 23:32 Respiratory Rate 16 12/30/24 23:32 Blood Pressure 162/95 H 12/30/24 23:32 Pulse Oximetry 96 12/30/24 23:32 Oxygen Delivery Method Room Air 12/30/24 23:32 MDM - Back Pain/Injury MDM Narrative Medical decision making narrative: patient presents complaining of right CVA and right flank pain. exam with tenderness at right CVA and mild RLQ tenderness. No guarding. labs WNL including cbc, CMP. UA with trace bacteria. Urine cx ordered. CT with findings of mesenteric adenitis and enteritis. Patient informed of the findings. advised the adenitis and enteritis should resolved spontaneously. Will treat her right CVA muscular pain with norflex and have her follow up with her doctor Lab Data Labs: Lab Results 12/30/24 12/31/24 Range/Units 23:48 00:24 WBC 10.3 (4.0-11.0) 10^3/uL RBC 4.17 L (4.20-5.40) 10^6/uL Hgb 11.7 L (12.0-16.0) g/dL Hct 35.7 L (36.0-48.0) % MCV 85.6 (81.0-99.0) fL MCH 28.1 (26.7-34.0) pg MCHC 32.8 (29.9-35.2) g/dL RDW 12.7 (11.0-15.0) % Plt Count 416 (150-450) 10^3/uL MPV 9.3 L (9.5-13.5) fL Neut % (Auto) 60.2 (43.0-75.0) % Lymph % (Auto) 27.8 (20.5-60.0) % [place] % (Auto) 8.3 (1.7-12.0) % Eos % (Auto) 2.5 (0.9-7.0) % Baso % (Auto) 0.9 (0.2-2.0) % Neut # (Auto) 6.2 (1.4-6.5) 10^3/uL Lymph # (Auto) 2.9 (1.2-3.8) 10^3/uL [place] # (Auto) 0.9 H (0.3-0.8) 10^3/uL Eos # (Auto) 0.3 (0.0-0.7) 10^3/uL Baso # (Auto) 0.1 (0.0-0.1) 10^3/uL Abs Immat Gran (auto) 0.03 (0.00-0.03) 10^3/uL Imm/Tot Granulo (auto) 0.3 (0.0-0.5) % Sodium 141 (136-145) mmol/L Potassium 3.7 (3.5-5.1) mmol/L Chloride 106 (98-107) mmol/L Carbon Dioxide 28.8 (21.0-32.0) mmol/L Anion Gap 9.9 BUN 7.0 (7.0-18.0) mg/dL Creatinine 0.73 (0.55-1.02) mg/dL Est GFR ( Amer) >60 (>=60 mL/min/1.73m^2) Est GFR (Non-Af Amer) >60 (>=60 mL/min/1.73m^2) BUN/Creatinine Ratio 9.6 Glucose 144 H (74-106) mg/dL Calcium 9.3 (8.5-10.1) mg/dL Total Bilirubin 0.3 (0.2-1.0) mg/dL AST 10 L (15-37) U/L ALT 16 (14-59) U/L Alkaline Phosphatase 104 (46-116) U/L Total Protein 6.7 (6.4-8.2) g/dL Albumin 3.6 (3.4-5.0) g/dL Globulin 3.1 g/dL Albumin/Globulin Ratio 1.2 Lipase 12.0 L (16.0-77.0) U/L Urine Color Lt. yellow (YELLOW) Urine Clarity Clear (CLEAR) Urine pH 7.0 (5.0-9.0) Ur Specific [place] <=1.005 A (1.005-1.025) Urine Protein Negative (NEG/TRACE) mg/dL Urine Glucose (UA) Negative (NEGATIVE) mg/dL Urine Ketones Negative (NEGATIVE) mg/dL Urine Occult Blood Negative (NEGATIVE) Urine Nitrite Negative (NEGATIVE) Urine Bilirubin Negative (NEGATIVE) Urine Urobilinogen 0.2 (0.2-1.0) EU/dL Ur Leukocyte Esterase Small A (NEGATIVE) Urine RBC None seen (0-2) #/HPF Urine WBC 0-2 A (NONE SEEN) #/HPF Ur Squamous Epith Cells Few A (NONE/RARE) #/LPF Urine Crystals None seen (None Seen) #/HPF Urine Bacteria Trace A (NONE SEEN) #/HPF Urine Casts None seen (NONE SEEN) #/LPF Urine Mucus None seen (NONE SEEN) Ur Culture Indicated? Yes-[facility] Discharge Plan Discharge Chief Complaint: Back Pain/Injury Clinical Impression: Acute right flank pain, Acute mesenteric adenitis Patient Disposition: Home, Self-Care Prescriptions / Home Meds: No Action metformin 500 mg tablet atorvastatin 80 mg tablet ipratropium-albuterol 0.5 mg-3 mg(2.5 mg base)/3 mL solution for nebulization INHALATION isosorbide mononitrate 30 mg tablet extended release 24 hr PO amlodipine 10 mg tablet esomeprazole magnesium 40 mg capsule,delayed release(DR/EC) nitroglycerin 0.4 mg tablet, sublingual nystatin [Nystop] 100,000 unit/gram powder TOPICAL fluticasone propionate 50 mcg/actuation spray,suspension INTRANASAL Entresto 24-26 mg tablet Print Language: Bulgarian Instructions: Flank Pain (ED), Adenitis (ED) Additional Instructions: follow up with your doctor next week. use muscle relaxant and ibuprofen for pain Referrals: GUY CONWAY [Primary Care Provider, Family Practice] - 1 week
[2024-12-31 00:24] LABS: Bilirubin Urine NEGATIVE (NEGATIVE); Blood Urine NEGATIVE (NEGATIVE); Clarity Urine CLEAR (CLEAR); Color Urine LT. YELLOW (YELLOW); Glucose Urine UA NEGATIVE (NEGATIVE); Ketones Urine NEGATIVE (NEGATIVE); Leukocyte Esterase Urine SMALL (NEGATIVE); Nitrite Urine NEGATIVE (NEGATIVE); Protein Urine NEGATIVE (NEG/TRACE); Specific Gravity Urine <=1.005 (1.005-1.025); Urobilinogen Urine 0.2 EU/dL (0.2-1.0)
[2024-12-31 00:33] LABS: Bacteria Urine TRACE #/HPF (NONE SEEN); Cast Seen? NONE SEEN #/LPF (NONE SEEN); Crystals Seen? None Seen #/HPF (None Seen); Mucus Urine NONE SEEN (NONE SEEN); RBC Urine NONE SEEN #/HPF (0-2); Squamous Epithelial Cell Urine FEW #/LPF (NONE/RARE); Urine Culture Indicated YES-FRMC; WBC Urine 0-2 #/HPF (NONE SEEN)
[2024-12-31 00:58] LABS: Basophils Absolute Auto 0.1 10^3/uL (0.0-0.1); Basophils Percent Auto 0.9 % (0.2-2.0); Eosinophils Absolute Auto 0.3 10^3/uL (0.0-0.7); Eosinophils Percent Auto 2.5 % (0.9-7.0); Hematocrit 35.7 % (36.0-48.0); Hemoglobin 11.7 g/dL (12.0-16.0); Immature Granulocytes Abs Auto 0.03 10^3/uL (0.00-0.03); Immature Granulocytes Pct Auto 0.3 % (0.0-0.5); Lymphocytes Absolute Auto 2.9 10^3/uL (1.2-3.8); Lymphocytes Percent Auto 27.8 % (20.5-60.0); Mean Corpuscular HGB Conc 32.8 g/dL (29.9-35.2); Mean Corpuscular Hemoglobin 28.1 pg (26.7-34.0); Mean Corpuscular Volume 85.6 fL (81.0-99.0); Mean Platelet Volume 9.3 fL (9.5-13.5); Monocytes Absolute Auto 0.9 10^3/uL (0.3-0.8); Monocytes Percent Auto 8.3 % (1.7-12.0); Neutrophils Absolute Auto 6.2 10^3/uL (1.4-6.5); Neutrophils Percent Auto 60.2 % (43.0-75.0); Platelet Count 416 10^3/uL (150-450); Red Blood Count 4.17 10^6/uL (4.20-5.40); Red Cell Distribution Width 12.7 % (11.0-15.0); White Blood Count 10.3 10^3/uL (4.0-11.0)
[2024-12-31] MEDS: KETOROLAC TROMETHAMINE 60 MG/2 ML VIAL IM (00:58)
[2024-12-31 01:11] LABS: Alanine Aminotransferase 16 U/L (14-59); Albumin Globulin Ratio 1.2; Albumin Level 3.6 g/dL (3.4-5.0); Alkaline Phosphatase 104 U/L (46-116); Anion Gap 9.9; Aspartate Amino Transferase 10 U/L (15-37); BUN Creatinine Ratio 9.6; Bilirubin Total 0.3 mg/dL (0.2-1.0); Calcium 9.3 mg/dL (8.5-10.1); Carbon Dioxide 28.8 mmol/L (21.0-32.0); Chloride 106 mmol/L (98-107); Estimated GFR (African America >60 (>=60 mL/min/1.73m^2); Estimated GFR (Non-African Ame >60 (>=60 mL/min/1.73m^2); Globulin 3.1 g/dL; Glucose 144 mg/dL (74-106); Potassium 3.7 mmol/L (3.5-5.1); Sodium 141 mmol/L (136-145); Total Protein 6.7 g/dL (6.4-8.2)
[2024-12-31] MEDS: ORPHENADRINE CITRATE 100 MG TABLET.ER PO (04:11)
== END 2024-12-31 04:21 | disposition home or self-care (01) ==
PROVIDERS: Emergency Provider Internal Medicine; PCP Family Medicine
DX: I88.0 Nonspecific mesenteric lymphadenitis (principal); R10.9 Unspecified abdominal pain; Z90.710 Acquired absence of both cervix and uterus; Z90.49 Acquired absence of other specified parts of digestive tract
CPT/HCPCS: 36415; 74176; 80053; 81001; 83690; 85025; 87086; 96372; 99285; J1885